=== PATIENT | female | born 1940 | race Caucasian/White ===

== ENCOUNTER 2017-02-23 16:04 | Inpatient (IN) ==
[2017-02-23 17:20] LABS: Basophils # 0.1 K/mcL (0.0-0.2); Basophils % 0.7 %; Eosinophils # 0.7 K/mcL (0.0-0.6); Eosinophils % 6.4 %; Hematocrit 31.9 % (35.3-44.9); Hemoglobin 10.1 g/dL (11.5-15.4); Immature Granulocytes % 0.2 % (0-4); Lymphocytes # 4.5 K/mcL (0.6-4.6); Lymphocytes % 43.8 %; Mean Corpuscular HGB Conc 31.7 g/dL (31.6-35.5); Mean Corpuscular Hemoglobin 28.6 pg (28.0-33.3); Mean Corpuscular Volume 90.4 fL (83.0-100.0); Mean Platelet Volume 12.9 fL (9.4-12.4); Monocytes # 1.2 K/mcL (0.0-1.3); Monocytes % 11.3 %; Neutrophils # 3.9 K/mcL (1.6-8.9); Platelet Count 195 K/mcL (140-400); Red Blood Count 3.53 M/mcL (3.82-4.97); Red Cell Distribution Width 14.6 % (11.5-14.5); Segmented Neutrophils % 37.6 %
[2017-02-23 17:26] LABS: INR 1.1; Prothrombin Time 11.5 Seconds (9.4-12.1)
[2017-02-23 17:28] LABS: Activated Partial Thrombo Time 28.5 Seconds (26.0-36.0)
[2017-02-23 17:31] LABS: Calcium 9.2 mg/dL (8.6-10.8)
[2017-02-23 18:07] LABS: Potassium 4.5 mEq/L (3.5-4.5)
--- NOTE | 2017-02-23 18:08 | Emergency Department Note ---
Disposition Clinical Impression: Rectal bleeding Anemia Qualifiers: Iron deficiency anemia type: chronic blood loss Qualified Code(s): D50.0 - Renal failure Qualifiers: Renal failure chronicity: unspecified chronicity Qualified Code(s): N19 - Unspecified kidney failure Disposition: Admitted As Inpatient Condition: Fair GI Bleed HPI - General Chief complaint: ED GI Bleed Stated complaint: Rectal bleeding Time Seen by Provider: 02/23/17 16:37 Source: patient, family Mode of arrival: private vehicle Limitations: no limitations Nursing Notes Reviewed: Yes Vital Signs Reviewed: Yes - History of Present Illness HPI Narrative: 77-year-old female history of coronary artery disease, CABG who presents to the ER due to rectal bleeding. Patient states she has had bright red blood per rectum for the last 2-3 months whenever she has a loose bowel movement. She denies a prior history of GI bleed. She states she did receive a transfusion wants due to post hemorrhage. She states that it does not happen with every bowel movement this whenever it is loose. Denies a history of colonoscopy , hemorrhoids. She is not on any antiplatelet or anticoagulation medications. She states she did see her doctor recently but did not talk about the bleeding but did find out she had renal disease. She reports intermittent chest pain and shortness of breath which is chronic for her. She also states that she feels faint whenever she stands up but that is also chronic. No syncopal episodes. No other complaints. Pt Subjective Complaint: other (Bright red blood per rectum) Onset (ago): week(s) Consistency: intermittent Severity: mild Improves with: nothing Worsens with: nothing Associated symptoms: Reports: weakness. Denies: abdominal pain, nausea, vomiting Treatments Prior to Arrival: none - Related Data Home Medications Medication Instructions Recorded Confirmed Acetaminophen/Diphenhydramine 1 each PO HS PRN 02/23/17 02/23/17 [Acetaminophen Pm Caplet] Atenolol [Tenormin] 25 mg PO DAILY 02/23/17 02/23/17 Dorzolamide/Timolol [Cosopt] 1 drop OP BID 02/23/17 02/23/17 Insulin NPH Hum/Reg Insulin Hm 10 unit SQ HS 02/23/17 02/23/17 [Humulin 70-30 Vial] Insulin NPH Hum/Reg Insulin Hm 12 unit SQ QAM 02/23/17 02/23/17 [Humulin 70-30 Vial] Lisinopril-HCTZ 10-12.5 [Prinzide 1 tab PO DAILY 02/23/17 02/23/17 10-12.5] Pioglitazone HCl [Pioglitazone HCl] 30 mg PO DAILY 02/23/17 02/23/17 Simvastatin [Zocor] 40 mg PO HS 02/23/17 02/23/17 glipiZIDE [Glipizide] 10 mg PO BID 02/23/17 02/23/17 Allergies Allergy/AdvReac Type Severity Reaction Status Date / Time lidocaine Allergy See Verified 02/23/17 16:30 Comments All systems ED: reviewed and negative except as stated. Constitutional: Denies: fever Cardiovascular: Reports: chest pain (intermittent) Respiratory: Reports: dyspnea (intermittent). Denies: cough Gastrointestinal: Reports: hematochezia. Denies: abdominal pain, nausea, vomiting, diarrhea, melena Genitourinary: Denies: hematuria Past Medical History - Past Medical History Attestation: Yes The following information was validated with the patient. Source: patient Medical history: Reports: diabetes Surgical history: Reports: coronary bypass (CABG) - Social History Smoking Status: Never smoker Smokeless Tobacco Status: No Alcohol use: Reports: none Drug use: Reports: none Physical Exam - General Limitations: physical limitation General appearance: alert, in no apparent distress - Head Head exam: atraumatic, normocephalic, normal inspection - Eye Eye exam: Present: normal appearance, EOMI - ENT ENT exam: normal exam - Neck Neck exam: Present: normal inspection, full ROM - Chest Chest inspection: Present: normal inspection, symmetric chest wall rise - Respiratory Respiratory exam: Present: normal lung sounds bilaterally - Cardiovascular Cardiovascular exam: Present: regular rate, normal rhythm, normal heart sounds - Abdominal Exam Abdominal exam: Present: soft, Non-Tender. Absent: tenderness, distention, rigidity - Rectal Exam Rectal exam: Present: normal inspection, normal rectal tone, hemorrhoids - Extremities Exam Extremities exam: Present: normal inspection, full ROM - Expanded Upper Extremity Exam Shoulder exam: Present: normal inspection, full ROM Arm exam: Present: normal inspection, full ROM Elbow exam: Present: normal inspection, full ROM Forearm/Wrist exam: Present: normal inspection, full ROM Hand exam: Present: normal inspection, full ROM Vascular exam: Normal: radial pulse - Expanded Lower Extremity Exam Hip/Pelvis exam: Present: normal inspection, full ROM Upper leg exam: Present: normal inspection, full ROM Knee exam: Present: normal inspection, full ROM Lower leg exam: Present: normal inspection, full ROM Ankle exam: Present: normal inspection, full ROM Foot/toe exam: Present: normal inspection, full ROM Neurovascular/Tendon exam: Absent: motor deficit, sensory deficit - Neurological Exam Neurological exam: Present: alert, other (Nonfocal neurologic exam. GCS 15.) - Psychiatric Psychiatric exam: Present: normal affect, normal mood - Skin Skin exam: Present: warm, dry, intact, normal color Course Course Narrative: Patient seen and examined. Vital signs reviewed. Rectal exam performed showing some hemorrhoids. We will send this for guaiac evaluation as well as obtain labs including CBC, coags, type and screen. We will give the patient IV fluids and reassess. - Reevaluation(s) Reevaluation #1: Discussed results of imaging with the patient. She is unsure what her renal function was prior. She is agreeable with staying in the hospital. Vital Signs Temperature 97.8 F 02/23/17 16:23 Pulse Rate 59 02/23/17 16:23 Respiratory Rate 18 02/23/17 16:23 Blood Pressure 125/72 02/23/17 16:23 O2 Sat by Pulse Oximetry 99 02/23/17 16:23 Temperature 98 F 02/24/17 07:00 Pulse Rate 66 02/24/17 07:00 Respiratory Rate 18 02/24/17 07:00 Blood Pressure 124/58 02/24/17 07:00 O2 Sat by Pulse Oximetry 98 02/24/17 07:00 Oxygen Delivery Oxygen Delivery Room Air GI Bleed - [facility] Narrative Medical decision making narrative: 77-year-old female presents to the ER due to bright red blood per rectum. Has been going on for 2-3 months with loose stools. Denies a prior history of endoscopy. She reports intermittent chest pain and shortness of breath which is chronic for her. No history of GI bleed. She is not on any antiplatelet or anticoagulation medications. Stool occult negative here. Her hemoglobin is around 10. She does have an elevated creatinine of 3.57. She is unsure what her prior renal function was noted in the system was roughly 1. Her potassium is normal without EKG changes. We will admit her for acute kidney injury as well as anemia. - Lab Data Lab results reviewed: Yes I reviewed the patient's lab results. Result diagrams: 02/24/17 06:09 02/24/17 06:09 Lab Results 02/23/17 02/23/17 02/23/17 Range/Units 17:11 17:11 17:11 WBC 10.3 (4.3-11.1) K/mcL RBC 3.53 L (3.82-4.97) M/mcL Hgb 10.1 L (11.5-15.4) g/dL Hct 31.9 L (35.3-44.9) % MCV 90.4 (83.0-100.0) fL MCH 28.6 (28.0-33.3) pg MCHC 31.7 (31.6-35.5) g/dL RDW 14.6 H (11.5-14.5) % Plt Count 195 (140-400) K/mcL MPV 12.9 H (9.4-12.4) fL Immature Gran % 0.2 (0-4) % Seg Neutrophils % 37.6 % Lymphocytes % 43.8 % Monocytes % 11.3 % Eosinophils % 6.4 % Basophils % 0.7 % Neutrophils # 3.9 (1.6-8.9) K/mcL Lymphocytes # 4.5 (0.6-4.6) K/mcL Monocytes # 1.2 (0.0-1.3) K/mcL Eosinophils # 0.7 H (0.0-0.6) K/mcL Basophils # 0.1 (0.0-0.2) K/mcL PT 11.5 (9.4-12.1) Seconds INR 1.1 APTT 28.5 (26.0-36.0) Seconds Sodium 138 (136-145) mEq/L Potassium 4.5 (3.5-4.5) mEq/L Chloride 113 H (98-109) mEq/L Carbon Dioxide 17 L (19-29) mEq/L BUN 84 H (7-20) mg/dL Creatinine 3.57 H (0.57-1.11) mg/dL Est GFR ( Amer) 15 L (> 60) Est GFR (Non-Af Amer) 12 L (> 60) BUN/Creatinine Ratio 24 (6-26) Glucose 270 H (70-99) mg/dL Calculated Osmolality 321 H (280-300) Calcium 9.2 (8.6-10.8) mg/dL Magnesium (1.6-2.6) mg/dL Total Bilirubin (0.2-1.2) mg/dL AST (5-34) Units/L ALT (0-55) Units/L Alkaline Phosphatase (38-126) Units/L Troponin I (0-0.03) ng/mL Serum Total Protein (6.0-8.3) g/dL Albumin (3.5-5.0) g/dL Globulin (2.4-3.5) g/dL Albumin/Globulin Ratio (1.1-2.2) Stool Occult Blood (Negative) Blood Type Antibody Screen Crossmatch 02/23/17 02/23/17 02/23/17 Range/Units 17:11 17:11 17:44 WBC (4.3-11.1) K/mcL RBC (3.82-4.97) M/mcL Hgb (11.5-15.4) g/dL Hct (35.3-44.9) % MCV (83.0-100.0) fL MCH (28.0-33.3) pg MCHC (31.6-35.5) g/dL RDW (11.5-14.5) % Plt Count (140-400) K/mcL MPV (9.4-12.4) fL Immature Gran % (0-4) % Seg Neutrophils % % Lymphocytes % % Monocytes % % Eosinophils % % Basophils % % Neutrophils # (1.6-8.9) K/mcL Lymphocytes # (0.6-4.6) K/mcL Monocytes # (0.0-1.3) K/mcL Eosinophils # (0.0-0.6) K/mcL Basophils # (0.0-0.2) K/mcL PT (9.4-12.1) Seconds INR APTT (26.0-36.0) Seconds Sodium (136-145) mEq/L Potassium (3.5-4.5) mEq/L Chloride (98-109) mEq/L Carbon Dioxide (19-29) mEq/L BUN (7-20) mg/dL Creatinine (0.57-1.11) mg/dL Est GFR ( Amer) (> 60) Est GFR (Non-Af Amer) (> 60) BUN/Creatinine Ratio (6-26) Glucose (70-99) mg/dL Calculated Osmolality (280-300) Calcium (8.6-10.8) mg/dL Magnesium (1.6-2.6) mg/dL Total Bilirubin (0.2-1.2) mg/dL AST (5-34) Units/L ALT (0-55) Units/L Alkaline Phosphatase (38-126) Units/L Troponin I 0.02 (0-0.03) ng/mL Serum Total Protein (6.0-8.3) g/dL Albumin (3.5-5.0) g/dL Globulin (2.4-3.5) g/dL Albumin/Globulin Ratio (1.1-2.2) Stool Occult Blood Negative (Negative) Blood Type O POSITIVE Antibody Screen NEGATIVE Crossmatch See Detail 02/24/17 02/24/17 Range/Units 06:09 06:09 WBC 12.4 H (4.3-11.1) K/mcL RBC 3.29 L (3.82-4.97) M/mcL Hgb 9.7 L (11.5-15.4) g/dL Hct 30.1 L (35.3-44.9) % MCV 91.5 (83.0-100.0) fL MCH 29.5 (28.0-33.3) pg MCHC 32.2 (31.6-35.5) g/dL RDW 14.7 H (11.5-14.5) % Plt Count 174 (140-400) K/mcL MPV 12.8 H (9.4-12.4) fL Immature Gran % 0.3 (0-4) % Seg Neutrophils % 51.2 % Lymphocytes % 31.9 % Monocytes % 9.0 % Eosinophils % 7.0 % Basophils % 0.6 % Neutrophils # 6.4 (1.6-8.9) K/mcL Lymphocytes # 4.0 (0.6-4.6) K/mcL Monocytes # 1.1 (0.0-1.3) K/mcL Eosinophils # 0.9 H (0.0-0.6) K/mcL Basophils # 0.1 (0.0-0.2) K/mcL PT (9.4-12.1) Seconds INR APTT (26.0-36.0) Seconds Sodium 143 (136-145) mEq/L Potassium 4.3 (3.5-4.5) mEq/L Chloride 119 H (98-109) mEq/L Carbon Dioxide 17 L (19-29) mEq/L BUN 76 H (7-20) mg/dL Creatinine 3.07 H (0.57-1.11) mg/dL Est GFR ( Amer) 18 L (> 60) Est GFR (Non-Af Amer) 15 L (> 60) BUN/Creatinine Ratio 25 (6-26) Glucose 135 H (70-99) mg/dL Calculated Osmolality 321 H (280-300) Calcium 8.9 (8.6-10.8) mg/dL Magnesium 1.8 (1.6-2.6) mg/dL Total Bilirubin 0.3 (0.2-1.2) mg/dL AST 20 (5-34) Units/L ALT 9 (0-55) Units/L Alkaline Phosphatase 60 (38-126) Units/L Troponin I (0-0.03) ng/mL Serum Total Protein 6.6 (6.0-8.3) g/dL Albumin 2.9 L (3.5-5.0) g/dL Globulin 3.7 H (2.4-3.5) g/dL Albumin/Globulin Ratio 0.8 L (1.1-2.2) Stool Occult Blood (Negative) Blood Type Antibody Screen Crossmatch - EKG Data EKG attestation: Yes I reviewed and interpreted this EKG. EKG results narrative: EKG demonstrates sinus rhythm with left bundle-branch block with a rate of 63 bpm. Left axis deviation. Prolonged PA interval of 280. Prolonged QRS duration of 142. QTC 449. No ST elevations or depressions. No acute ischemic findings. No significant changes from previous EKG dated 02/23/17. S.B.A.R. - S.B.A.R. Situation: Demographics, MOA Background: Presenting Complaint, Relevant PMH, Meds, & Allergies Assessment: Vital Signs, Course and respsone to treatment, Exam Concerns, Patient/Family Expectation, Pertinant Lab Results, Outstanding Labs Recommendation: Barrier(s) to disposition, Recommendation based on pending studies, treatments, or consults Hanny Report Given to: Dr. Prabhjot Gamino Repor Time: 20:04 Attestation Statement - Attestation Attestation: I examined this patient and my medical decision-making was reviewed with the Resident Physician. I agree with the documented findings, disposition and treatment plan as described except to the extent set forth below. Patient is a 77-year-old white female who presents to the emergency department with complaints of bright red blood per rectum for 2-3 months. Patient with no prior history of GI bleeding not on anticoagulants. Patient denies any abdominal pain associated with this bleeding no fevers or chills no other associated symptoms. Does c/o chronic SOB and lightheadeness, which she has experienced for quite some time, not assocd with BRBPR. No prior endoscopy/colonoscopy. I agree with patient's physical exam findings as documented patient's hemodynamically stable on arrival. Patient with hemorrhoids on exam, agree with PE findings as documented. VSS. Pt in NAD. EKG SR with LBBB, no acute changes compared to prior EKG. Stool guaiac neg. Hgb =10, mild anemia. SCr elevated from prior, unclear etiology. Remainder of ED testing wnl. Pt admitted for rectal bleeding, anemia, and acute kidney injury. Remained with stable VS throughout ED course. D/W hospitalist who accepted pt for admission.
[2017-02-23] MEDS ORDERED: 0.9 % Sodium Chloride 1,000 ML IVC ONE (18:12)
[2017-02-24] MEDS ORDERED: Dextrose Gel 15 GM PO PRN ×2 (05:48)
[2017-02-24] MEDS ORDERED: Naloxone 0.4 MG/ML INJ IVP PRN (05:48)
[2017-02-24] MEDS ORDERED: Acetaminophen 325 MG TABLET PO PRN (05:48)
[2017-02-24] MEDS ORDERED: Ondansetron 4 MG/2 ML VIAL IVP PRN (05:48)
[2017-02-24] MEDS ORDERED: *HR* Dextrose 50 % in Water (Syg) 50 ML SYRINGE IVP PRN (05:48)
[2017-02-24] MEDS ORDERED: D5% in Water 1,000 ML IVC PRN (05:48)
--- NOTE | 2017-02-24 06:15 | Internal Med History&Physical ---
Date of Encounter: 02/24/17 Time of Encounter: 05:30 Assessment and Plan (1) LGI bleed Current visit: Yes Status: Acute 1. Will monitor Hgb and consult GI. 2. Patient will need colonoscopy to evaluate. 3. Transfuse PRBC as necessary to maintain hemodynamic stability. (2) CKD (chronic kidney disease) stage 5, GFR less than 15 ml/min Current visit: Yes Status: Chronic 1. Consult nephrology for guidance and proper follow up. 2. She is reluctant to see nephrology for fear of dialysis. (3) Anemia Current visit: Yes Status: Chronic 1. Will monitor hgb and transfuse if necessary. 2. Patient needs colonoscopy, but she is reluctant. 3. Will order iron studies. Qualifiers: Iron deficiency anemia type: chronic blood loss Qualified Code(s): D50.0 - Iron deficiency anemia secondary to blood loss (chronic) (4) Insulin dependent diabetes mellitus Current visit: Yes Status: Acute 1. Stop oral meds as she should not be on them with her degree of CKD. 2. Continue home basal insulin plus SSI. 3. Monitor glucose and adjust SSI as needed. (5) DVT prophylaxis Current visit: Yes Status: Acute 1. EPCD's. Internal Medicine - H&P: HPI Chief complaint: bleeding per rectum Admitted From: Emergency Dept Plans for Post Hospital Care: Home History of present illness: Ms. Kaplan is a 77 year old female who presents the ER tonight with a several month history of bright red blood per rectum. She denies any unintentional weight loss, fevers, chills, melena, or hematemesis. She has been reluctant to come to the hospital for evaluation, but her "made her come to the ER". As such, she was admitted to hospitalist service. Additionally, she was she was found to have evidence of kidney failure -- suspected CKD. Upon my assessment of the patient, she is in no distress. She confirms being told on multiple occasions that she has kidney disease and is on the verge of dialysis. She has been reluctant to see a kidney specialist in the past. She also states she does not really want a colonoscopy but will consider some alternative means of colonic imaging. Colon cancer is extensive in the family history, and her father and 2 uncles from colon cancer. 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 Her PCP has been trying to get her to see a news producer for years, but she has been reluctant to do so. Past Med Surg Social Fam HX - Past Medical History Attestation: Yes The following information was validated with the patient. Source: patient, other (ER notes) Medical history: coronary artery disease, diabetes, hypertension Psychiatric history: no psych history - Past Surgical History Surgical History: appendectomy, coronary bypass (CABG), orthopedic, other, splenectomy - Social History Smoking Status: Never smoker Smokeless Tobacco Status: No Alcohol use: none Drug use: none Current living situation: Home, With Family Activity Level: Independent ambulation Recent Out of Country Travel Within the Last 8 Weeks: No - Family History Mother Living Status: Age at : 68 Cause of : Uterine Cancer Hx Family Cardiac Disorders: No Hx Family Respiratory Disorders: No Hx Family Cancer: Yes (Uterine Cancer) Hx Family GI Disorders: No Hx Family Genitourinary Disorders: No Hx Family Endocrine Disorder: No Hx Family Musculoskeletal Disorders: No Hx Family Neuromuscular Disorders: No Hx Family Neurologic Disorders: No Hx Family HEENT Disorders: No Hx Family Autoimmune Disorders: No Hx Family Reproductive Disorders: No Hx Family Psychosocial Disorders: No Hx Family Medical Disorders: No Father Living Status: Hx Family Cancer: Yes - Additional Family History Additional family history: Extensive FH of colon cancer Internal Medicine - H&P: Meds Acetaminophen/Diphenhydramine [Acetaminophen Pm Caplet] 1 each PO HS PRN [History] Atenolol [Tenormin] 25 mg PO DAILY 02/23/17 [History] Dorzolamide/Timolol [Cosopt] 1 drop OP BID 02/23/17 [History] Insulin NPH Hum/Reg Insulin Hm [Humulin 70-30 Vial] 10 unit SQ HS 02/23/17 [ History] Insulin NPH Hum/Reg Insulin Hm [Humulin 70-30 Vial] 12 unit SQ QAM 02/23/17 [ History] Lisinopril-HCTZ 10-12.5 [Prinzide 10-12.5] 1 tab PO DAILY 02/23/17 [History] Pioglitazone HCl [Pioglitazone HCl] 30 mg PO DAILY 02/23/17 [History] Simvastatin [Zocor] 40 mg PO HS 02/23/17 [History] glipiZIDE [Glipizide] 10 mg PO BID 02/23/17 [History] 3 Allergy/AdvReac Type Severity Reaction Status Date / Time lidocaine Allergy See Verified 02/23/17 16:30 Comments - Constitutional Constitutional: weight loss (intentional), no chills, no fever(s) - EENT Eyes: no blurry vision, no change in vision Ears: no ear pain, no tinnitus Nose, mouth and throat: no nasal congestion, no sinus pain, no sinus pressure - Cardiovascular Cardiovascular ROS IM: no chest pain, no diaphoresis, no dyspnea, no orthopnea - Respiratory Respiratory: no cough, no dyspnea, no hemoptysis - Gastrointestinal Gastrointestinal: constipation, hematochezia, no abdominal pain, no diarrhea, no heartburn, no hematemesis, no melena, no vomiting - Genitourinary Genitourinary: no dysuria, no flank pain, no hematuria - Musculoskeletal Musculoskeletal ROS IM: no arthralgias, no back pain - Integumentary Integumentary IM: no rash, no jaundice - Neurological Neurological ROS: no dizziness, no focal weakness, no frequent falls, no headache(s) - Psychiatric Psychiatric: no anxiety, no depression - Endocrine Endocrine IM: no polydipsia, no polyphagia - Hematologic/Lymphatic Hematologic/Lymphatic: no easy bruising, no lymphadenopathy - Allergic/Immunologic Allergic/Immunologic: no wheezing, no GI upset with certain foods - Constitutional Vitals: Temp Pulse Resp BP Pulse Ox 97.6 F 62 16 114/58 100 02/24/17 04:23 02/24/17 04:23 02/24/17 04:23 02/24/17 04:23 02/24/17 04:23 General appearance: Present: A&O X 3, no acute distress, answers questions appropriately - Head Head exam: Present: atraumatic, normal inspection - Expanded Head Exam Head exam expanded: Absent: abrasion, contusion - Eye Eye exam: Present: normal appearance, PERRL. Absent: scleral icterus Pupils: Present: normal accommodation - ENT ENT exam: Present: mucous membranes moist, normal exam - Neck Neck exam general surgery: Present: full ROM, supple. Absent: tenderness, nuchal rigidity - Respiratory Respiratory exam: Present: CTAB. Absent: chest wall tenderness, rales, rhonchi , wheezes - Cardiovascular Cardiovascular exam: Present: RRR, +S1, +S2, systolic murmur. Absent: rubs - GI/Abdominal GI/Abdominal exam: Present: normal bowel sounds, soft. Absent: hepatomegaly, mass, tenderness - Extremities Exam Extremities exam: Present: full ROM, warm. Absent: calf tenderness, joint swelling, pedal edema, tenderness - Back Exam Back exam: Present: normal inspection. Absent: CVA tenderness (L), CVA tenderness (R) - Neurological Exam Neurological exam: Present: alert, CN II-XII intact, oriented X3, no focal deficits - Psychiatric Psychiatric exam: Present: normal affect, normal mood - Skin Skin exam: Present: dry, warm. Absent: rash Internal Med - H&P Results - Labs CBC & Chem 7: 02/23/17 17:11 02/23/17 17:11
[2017-02-24 06:23] LABS: Basophils # 0.1 K/mcL (0.0-0.2); Basophils % 0.6 %; Eosinophils # 0.9 K/mcL (0.0-0.6); Hematocrit 30.1 % (35.3-44.9); Hemoglobin 9.7 g/dL (11.5-15.4); Immature Granulocytes % 0.3 % (0-4); Lymphocytes % 31.9 %; Mean Corpuscular HGB Conc 32.2 g/dL (31.6-35.5); Mean Corpuscular Hemoglobin 29.5 pg (28.0-33.3); Mean Corpuscular Volume 91.5 fL (83.0-100.0); Mean Platelet Volume 12.8 fL (9.4-12.4); Monocytes # 1.1 K/mcL (0.0-1.3); Neutrophils # 6.4 K/mcL (1.6-8.9); Platelet Count 174 K/mcL (140-400); Red Blood Count 3.29 M/mcL (3.82-4.97); Red Cell Distribution Width 14.7 % (11.5-14.5); Segmented Neutrophils % 51.2 %
[2017-02-24 07:18] LABS: Albumin 2.9 g/dL (3.5-5.0); Albumin/Globulin Ratio 0.8 (1.1-2.2); Bilirubin,Total 0.3 mg/dL (0.2-1.2); Calcium 8.9 mg/dL (8.6-10.8); Globulin 3.7 g/dL (2.4-3.5); Magnesium 1.8 mg/dL (1.6-2.6); Potassium 4.3 mEq/L (3.5-4.5); Total Protein 6.6 g/dL (6.0-8.3)
--- NOTE | 2017-02-24 09:15 | Nephrology Consult Note ---
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 Kaplan is a 77 year old female who who was admitted with a several month history of bright red blood per rectum. She has been reluctant to come to the hospital but when her found out he "made her come to the ER". On admission she was she was found to be in kidney failure. She confirms being told on multiple occasions that she has kidney disease and is on the verge of dialysis. She has been reluctant to see a kidney specialist in the past. She also states she does not really want a colonoscopy but will consider some alternative means of colonic imaging. Colon cancer is extensive in the family history, and her father and 2 uncles from colon cancer. Patient states her mother was on dialysis and it was "the most horrible "; states she would rather than go on dialysis. 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 Her PCP has been trying to get her to see a loan broker for years, but she has been reluctant to do so. After a long discussion patient is willing to have a workup to eval her kidney function. Past Med Surg Social Fam HX - Past Medical History Medical history: coronary artery disease, diabetes, hypertension, renal disease Psychiatric history: no psych history - Past Surgical History Surgical History: appendectomy, coronary bypass (CABG), orthopedic, other, splenectomy - Social History Smoking Status: Never smoker Smokeless Tobacco Status: No Alcohol use: none Drug use: none - Family History Mother Living Status: Age at : 68 Cause of : Uterine Cancer Hx Family Cardiac Disorders: No Hx Family Respiratory Disorders: No Hx Family Cancer: Yes (Uterine Cancer) Hx Family GI Disorders: No Hx Family Genitourinary Disorders: No Hx Family Endocrine Disorder: No Hx Family Musculoskeletal Disorders: No Hx Family Neuromuscular Disorders: No Hx Family Neurologic Disorders: No Hx Family HEENT Disorders: No Hx Family Autoimmune Disorders: No Hx Family Reproductive Disorders: No Hx Family Psychosocial Disorders: No Hx Family Medical Disorders: No Father Living Status: Hx Family Cancer: Yes Medications and Allergies Acetaminophen/Diphenhydramine [Acetaminophen Pm Caplet] 1 each PO HS PRN [History] Atenolol [Tenormin] 25 mg PO DAILY 02/23/17 [History] Dorzolamide/Timolol [Cosopt] 1 drop OP BID 02/23/17 [History] Insulin NPH Hum/Reg Insulin Hm [Humulin 70-30 Vial] 10 unit SQ HS 02/23/17 [ History] Insulin NPH Hum/Reg Insulin Hm [Humulin 70-30 Vial] 12 unit SQ QAM 02/23/17 [ History] Lisinopril-HCTZ 10-12.5 [Prinzide 10-12.5] 1 tab PO DAILY 02/23/17 [History] Pioglitazone HCl [Pioglitazone HCl] 30 mg PO DAILY 02/23/17 [History] Simvastatin [Zocor] 40 mg PO HS 02/23/17 [History] glipiZIDE [Glipizide] 10 mg PO BID 02/23/17 [History] 3 Allergy/AdvReac Type Severity Reaction Status Date / Time lidocaine Allergy See Verified 02/23/17 16:30 Comments Review of Systems All Systems: reviewed and no additional remarkable complaints except as stated Constitutional: no fatigue, no fever(s), no weakness, no weight gain, no weight loss Cardiovascular: no chest pain, no dyspnea Respiratory: no cough, no dyspnea, no hemoptysis Gastrointestinal: change in stool character, hematochezia Neurological: no behavioral changes Exam - Vital Signs Vital signs: Initial Vital Signs Temp Pulse Resp BP Pulse Ox 97.8 F 59 18 125/72 99 02/23/17 16:23 02/23/17 16:23 02/23/17 16:23 02/23/17 16:23 02/23/17 16:23 - General Appearance General appearance: well-developed, well-nourished EENT: ATNC, mucous membranes moist, hearing intact, vision intact Neck: supple Respiratory: clear Cardiology: no edema, normal S1, normal S2 Gastrointestinal: no tenderness, no guarding Integumentary: warm and dry Neurologic: alert and oriented x3 Psychiatric: mood/affect appropriate, cooperative Results - Lab Results 02/24/17 06:09 02/24/17 06:09 Most recent lab results Calcium 8.9 mg/dL (8.6-10.8) 02/24/17 06:09 Magnesium 1.8 mg/dL (1.6-2.6) 02/24/17 06:09 Consult Discharge Plan - Plan Referrals: Martín Odonnell MD [Primary Care Provider] -
[2017-02-24] MEDS: Insulin NPH/REG 70/30 100 UNIT/ML (x5UNIT) SQ SCH ×2 (09:30→21:13)
[2017-02-24] MEDS: Insulin LISPRO 300 UNITS/3 ML VIAL SQ SCH ×3 (09:30→18:27)
[2017-02-24 10:24] LABS: Uric Acid 7.5 mg/dL (2.6-6.0)
[2017-02-24] MEDS: Dorzolamide/Timolol OPTH 10 ML BOTTLE BOTH EYES SCH ×2 (10:57→21:14)
--- NOTE | 2017-02-24 11:34 | Gastroenterology Consult Note ---
<Seth Mao - Last Filed: 02/24/17 18:17> Date of Encounter: 02/24/17 Time of Encounter: 11:27 - Assessment and plan (1) Rectal bleeding Current Visit: Yes Status: Acute Assessment and plan: patient reports bright red blood per rectum that started about 6 months ago and has been intermittently occurring. not on any blood thinners. has family history of colorectal cancer, her father and two uncles of colon cancer. denies ever having colonoscopy done in the past. currently agreeable to colonoscopy. Plan: clear liquid diet now, no red or purple dyes 20mg dulculax now NPO after midnight use Golytyely bowel prep. if patient cannot tolerte golytely bowel prep, use miralax bowel prep if bowel movements not clear by 6am, give two water tap enemas. - Time Spent With Patient Total time spent is greater than 50% in coordination of care (as documented) at patient's floor/unit and/or counseling patient: GI History of Present Illness - Data of Consult Patient: new to practice Requesting Physician: José Maneul Hernandez - Consult Narrative Reason for consult: bleeding per rectum History of present illness: Ms. Kaplan is a 77 year old female with pMHx of CAD, DM, HTN, CKD. She was admitted yesterday from ER with approximately month history of bright red blood per rectum. She was reluctant to come to hospital for evaluation, but came after being urged to do so by her . patient does report history of colon cancer in her family (father and two uncles of colon cancer) and was initially reluctant to get colonoscopy done but is now agreeable to doing so. patient denies being on blood t hinners in the past and she denies dark/tarry stools. she also reports diarrhea that started about 1 choctaw ago and she has been having 4-5 episodes of loose stools per day. she denies any sick contacts and denies any travel and denies any recent use of antibiotics. she denies ever having a colonoscopy in the past. she admits to nauesa without vomiting, admits to occasional shortness of breath, denies fevers/chills. Past Med Surg Social Fam HX - Past Medical History Medical history: coronary artery disease, diabetes, hypertension, renal disease Psychiatric history: no psych history - Past Surgical History Surgical History: appendectomy, coronary bypass (CABG), orthopedic, other, splenectomy - Social History Smoking Status: Never smoker Smokeless Tobacco Status: No Alcohol use: none Drug use: none - Family History Mother Living Status: Age at : 68 Cause of : Uterine Cancer Hx Family Cardiac Disorders: No Hx Family Respiratory Disorders: No Hx Family Cancer: Yes (Uterine Cancer) Hx Family GI Disorders: No Hx Family Genitourinary Disorders: No Hx Family Endocrine Disorder: No Hx Family Musculoskeletal Disorders: No Hx Family Neuromuscular Disorders: No Hx Family Neurologic Disorders: No Hx Family HEENT Disorders: No Hx Family Autoimmune Disorders: No Hx Family Reproductive Disorders: No Hx Family Psychosocial Disorders: No Hx Family Medical Disorders: No Father Living Status: Hx Family Cancer: Yes All systems PM: reviewed and no additional remarkable complaints except as stated - Constitutional Vitals: Temp Pulse Resp BP Pulse Ox 98 F 66 18 124/58 98 02/24/17 07:00 02/24/17 07:00 02/24/17 07:00 02/24/17 07:00 02/24/17 07:00 General appearance: Present: A&O X 3, pleasant, no acute distress, answers questions appropriately Exam: pale - Head Head exam: Present: atraumatic, normocephalic - Neck Neck exam general surgery: Present: supple, trachea midline - Respiratory Respiratory exam: Present: CTAB - GI/Abdominal Additional comments: obese, non distended, nontender, positive bowel sounds. - Extremities Exam Extremities exam: Absent: cyanotic Additional comments: right lower extremity non pitting edema. - Psychiatric Psychiatric exam: Present: normal affect, normal mood Results - Labs CBC & Chem 7: 02/24/17 18:04 02/24/17 06:09 Labs: Last Result Calcium 8.9 mg/dL (8.6-10.8) 02/24/17 06:09 Iron 63 mcg/dL (50-170) 02/24/17 06:09 % Saturation 24 % (15-50) 02/24/17 06:09 Transferrin 189 mg/dL (180-382) 02/24/17 06:09 Troponin I 0.02 ng/mL (0-0.03) 02/23/17 17:11 Stool Occult Blood Negative (Negative) 02/23/17 17:44 Entire Visit Hgb 9.7 g/dL (11.5-15.4) L 02/24/17 06:09 Hct 30.1 % (35.3-44.9) L 02/24/17 06:09 PT 11.5 Seconds (9.4-12.1) 02/23/17 17:11 Total Bilirubin 0.3 mg/dL (0.2-1.2) 02/24/17 06:09 AST 20 Units/L (5-34) 02/24/17 06:09 ALT 9 Units/L (0-55) 02/24/17 06:09 - ABG ABG results: PT/INR, D-dimer PT 11.5 Seconds (9.4-12.1) 02/23/17 17:11 Consult Discharge Plan - Plan Referrals: Martín Odonnell MD [Primary Care Provider] - <[email or web address] - Last Filed: 02/24/17 18:20> Date of Encounter: 02/24/17 Time of Encounter: 18:00 - Time Spent With Patient Total time spent is greater than 50% in coordination of care (as documented) at patient's floor/unit and/or counseling patient: GI History of Present Illness - Data of Consult Requesting Physician: José Manuel Hernandez - Consult Narrative History of present illness: Ms. Kaplan is a 77 year old female - Constitutional Vitals: Temp Pulse Resp BP Pulse Ox 97.8 F 66 17 150/78 95 02/24/17 15:00 02/24/17 15:00 02/24/17 15:00 02/24/17 15:00 02/24/17 15:00 Results - Labs CBC & Chem 7: 02/24/17 18:04 02/24/17 06:09 Labs: Last Result Calcium 8.9 mg/dL (8.6-10.8) 02/24/17 06:09 Iron 63 mcg/dL (50-170) 02/24/17 06:09 % Saturation 24 % (15-50) 02/24/17 06:09 Transferrin 189 mg/dL (180-382) 02/24/17 06:09 Troponin I 0.02 ng/mL (0-0.03) 02/23/17 17:11 Stool Occult Blood Negative (Negative) 02/23/17 17:44 Entire Visit Hgb 10.1 g/dL (11.5-15.4) L 02/24/17 18:04 Hct 32.4 % (35.3-44.9) L 02/24/17 18:04 PT 11.5 Seconds (9.4-12.1) 02/23/17 17:11 Total Bilirubin 0.3 mg/dL (0.2-1.2) 02/24/17 06:09 AST 20 Units/L (5-34) 02/24/17 06:09 ALT 9 Units/L (0-55) 02/24/17 06:09 - ABG ABG results: PT/INR, D-dimer PT 11.5 Seconds (9.4-12.1) 02/23/17 17:11 - Impressions Impressions Retroperitoneum Ultrasound 02/24/17 15:00 IMPRESSION: 1. No hydronephrosis. 2. Left nephrolithiasis. D/ / 02/24/2017 16:27:42 Cassie Boateng MD / [facility] Interpreting Provider: Cassie Boateng MD - Attending Attestation I examined this patient and my medical decision-making was reviewed with the Resident Physician. I agree with the documented findings, disposition and treatment plan as described except to the extent set forth below.
--- NOTE | 2017-02-24 13:28 | Internal Med Progress Note ---
<Estevan Hu - Last Filed: 02/24/17 15:59> Date of Encounter: 02/24/17 Time of Encounter: 09:30 - Assessment and plan (1) Rectal bleeding Current Visit: Yes Status: Acute Assessment and plan: Patient presented with complaint of blood per rectum, stool occult negative hemoglobin decreased nonsignificantly likely secondary to dilutional effect. Patient complained of blood in her stool described as bright red blood over several months. Patient has normocytic anemia which does not correlate with a chronic GI bleed. - Patient denies history of colonoscopy with does have very significant family history for colon cancer in her brother and father - Given the patient's presenting concern and laboratory findings this may be hemorrhoids but cannot rule out diverticular bleed or colon cancer but suspect lower GI in nature. Plan: - Gastroenterology consults for possible colonoscopy and evaluation - Hemoglobin every 8 hours - Monitor volume status including blood pressure and urinary output - PPI coverage (2) Acute kidney injury superimposed on CKD Current Visit: Yes Status: Acute Assessment and plan: 77-year-old female presents with a creatinine of 3.57 and GFR 14 with complaint of rectal bleeding. Her previous creatinine was 1.08 and 2014 and 1.19 in 2015. - She has significant medical history of insulin-dependent diabetes, chronic kidney disease stage III and frequent NSAID use. - Her current creatinine is 3.07 which is reduced at 3.57 and this may be acute on chronic kidney disease. Nephrology is involved in the patient's care and are providing rehydration and monitoring renal function. Plan: - Continue dextrose IV fluid - Continue to monitor renal function with a.m. labs - Avoid nephrotoxic medications and renally dose antibiotics - Monitor volume status daily Appreciate nephrology's recommendations (3) Anemia Current Visit: Yes Status: Acute Assessment and plan: Patient presents with normocytic anemia with a hemoglobin of 10.1 and 9.7 today after fluid rehydration. The drop may be secondary to dilutional effect. - Patient presented with blood per rectum Qualifiers: Anemia type: unspecified type Qualified Code(s): D64.9 - Anemia, unspecified (4) Diabetes Current Visit: Yes Status: Acute Assessment and plan: Patient has known history of type 2 diabetes for which he takes glipizide and subcutaneous insulin at home. Oral anti-hyperglycemics were held at the time of admission with the setting of GI bleed and acute kidney injury. Plan: - Chek glucoses 4 times a day - Humulin 70/30: 10 units subcutaneous at bedtime, 12 units subcutaneous every morning - Low-dose sliding scale Qualifiers: Qualified Code(s): E11.9 - Type 2 diabetes mellitus without complications (5) DVT prophylaxis Current Visit: Yes Status: Acute Assessment and plan: Hold antiplatelet or blood thinners in the setting of GI bleed. - Subjective Interval history: Mrs. Kaplan is seen about a patient bedside. She is alert awake oriented interactive in no acute distress. She denies any current pain and has not had any rectal bleeding since admission. She does have a history of "pain in her left lower extremity after having screws placed in her ankle for which she says she has no allergy to and occasionally has to take NSAIDs and Tylenol for her pain. She denies any changes in urination and knowing of any further change in her renal function. She has otherwise been feeling well and denies any nausea vomiting diarrhea constipation, fevers chills or sweating. - Constitutional Vitals: Temp Pulse Resp BP Pulse Ox 98 F 66 18 124/58 98 02/24/17 07:00 02/24/17 07:00 02/24/17 07:00 02/24/17 07:00 02/24/17 07:00 General appearance: Present: A&O X 3, no acute distress, answers questions appropriately Exam: General: Patient alert, awake, oriented 3, interactive, in no acute distress HEENT: Normocephalic, atraumatic, pupils equal reactive to light, nasal cavity patent and open septum median position, oral mucosa moist, uvula midline, neck supple trachea midline no palpable lymphadenopathy, no thyromegaly. Chest: Symmetric bilateral correlating with respiratory effort, effort nonlabored. Cardiac: Regular rate and rhythm, systolic murmur appreciated at 2 out of 6 , Radial pulses 2+ bilateral, posterior tibial and dorsal pedal pulses 2+ bilateral. Respiratory: Clear to auscultation all lung paige Abdomen: Soft, nontender, positive bowel sounds, no palpable masses appreciated on examination Extremities: Symmetric bilateral, bilateral lower extremities symmetric trace edema patient moving all 4 extremities spontaneously. Neurologic: No focal deficits appreciated on examination. Face symmetric, muscle strength symmetric bilateral upper and lower extremities. Internal Medicine: Result - Labs CBC & Chem 7: 02/24/17 06:09 02/24/17 06:09 - ABG Interpretation ABG results: PT/INR, D-dimer PT 11.5 Seconds (9.4-12.1) 02/23/17 17:11 Consult Discharge Plan - Plan Referrals: Martín Odonnell MD [Primary Care Provider] - <José Manuel Hernandez - Last Filed: 02/25/17 10:28> Date of Encounter: 02/25/17 - Constitutional Vitals: Temp Pulse Resp BP Pulse Ox 98.6 F 65 18 144/67 99 02/25/17 00:47 02/25/17 07:59 02/25/17 07:59 02/25/17 07:59 02/25/17 07:59 Internal Medicine: Result - Labs CBC & Chem 7: 02/25/17 05:58 02/25/17 05:58 Labs: Short CBC 02/24/17 02/25/17 Range/Units 18:04 05:58 WBC 9.3 (4.3-11.1) K/mcL Hgb 10.1 L 9.8 L (11.5-15.4) g/dL Hct 32.4 L 30.6 L (35.3-44.9) % Plt Count 183 (140-400) K/mcL Neutrophils # 4.5 (1.6-8.9) K/mcL BMP 02/25/17 05:58 Sodium 137 Potassium 4.1 Chloride 113 H Carbon Dioxide 16 L BUN 61 H Creatinine 2.51 H Glucose 101 H Calcium 8.8 Liver Function 02/25/17 Range/Units 05:58 Total Bilirubin 0.6 (0.2-1.2) mg/dL AST 27 (5-34) Units/L ALT 9 (0-55) Units/L Alkaline Phosphatase 59 (38-126) Units/L Albumin 3.0 L (3.5-5.0) g/dL - ABG Interpretation ABG results: PT/INR, D-dimer PT 11.5 Seconds (9.4-12.1) 02/23/17 17:11 - Impressions Impressions Retroperitoneum Ultrasound 02/24/17 15:00 IMPRESSION: 1. No hydronephrosis. 2. Left nephrolithiasis. D/ / 02/24/2017 16:27:42 Cassie Boateng MD / [facility] Interpreting Provider: Cassie Boateng MD - Attending Attestation colonoscopy in am
[2017-02-24 18:11] LABS: Hematocrit 32.4 % (35.3-44.9); Hemoglobin 10.1 g/dL (11.5-15.4)
[2017-02-24] MEDS ORDERED: SODIUM CHLORIDE/NAHCO3/KCL/PEG 4,000 ML SOLN.RECON PO ONE (18:16)
[2017-02-25 06:08] LABS: Basophils # 0.1 K/mcL (0.0-0.2); Basophils % 0.5 %; Eosinophils # 0.6 K/mcL (0.0-0.6); Eosinophils % 6.3 %; Hematocrit 30.6 % (35.3-44.9); Hemoglobin 9.8 g/dL (11.5-15.4); Immature Granulocytes % 0.3 % (0-4); Lymphocytes # 3.3 K/mcL (0.6-4.6); Lymphocytes % 35.1 %; Mean Corpuscular Hemoglobin 29.3 pg (28.0-33.3); Mean Corpuscular Volume 91.3 fL (83.0-100.0); Mean Platelet Volume 12.4 fL (9.4-12.4); Monocytes # 0.9 K/mcL (0.0-1.3); Monocytes % 9.8 %; Neutrophils # 4.5 K/mcL (1.6-8.9); Platelet Count 183 K/mcL (140-400); Red Blood Count 3.35 M/mcL (3.82-4.97); Red Cell Distribution Width 14.5 % (11.5-14.5)
[2017-02-25 06:27] LABS: Albumin/Globulin Ratio 0.8 (1.1-2.2); Bilirubin,Total 0.6 mg/dL (0.2-1.2); Calcium 8.8 mg/dL (8.6-10.8); Globulin 3.6 g/dL (2.4-3.5); Potassium 4.1 mEq/L (3.5-4.5); Total Protein 6.6 g/dL (6.0-8.3)
--- NOTE | 2017-02-25 07:38 | Anesthesia Evaluation PreOp ---
Date of Encounter: 02/25/17 Time of Encounter: 07:36 - Past History Planned Operation: Colonoscopy Cardiac History: [place] x 3), HTN, Hyperlipidemia, Cardiac Surgery (CABG x 4 in 2000) Pulmonary History: Denies Any Significant HX ECONOMICS INSTRUCTOR History: Denies Any Significant HX Other Medical History: Renal (CKD stage 5), Bleeding (GI bleed), Diabetes Type I Anesthesia History: No Prior Anesthetic Complications, Past Anesthesia Alcohol Use: none Drug use: none Medications and Allergies Acetaminophen/Diphenhydramine [Acetaminophen Pm Caplet] 1 each PO HS PRN [History] Atenolol [Tenormin] 25 mg PO DAILY 02/23/17 [History] Dorzolamide/Timolol [Cosopt] 1 drop OP BID 02/23/17 [History] Insulin NPH Hum/Reg Insulin Hm [Humulin 70-30 Vial] 10 unit SQ HS 02/23/17 [ History] Insulin NPH Hum/Reg Insulin Hm [Humulin 70-30 Vial] 12 unit SQ QAM 02/23/17 [ History] Lisinopril-HCTZ 10-12.5 [Prinzide 10-12.5] 1 tab PO DAILY 02/23/17 [History] Pioglitazone HCl [Pioglitazone HCl] 30 mg PO DAILY 02/23/17 [History] Simvastatin [Zocor] 40 mg PO HS 02/23/17 [History] glipiZIDE [Glipizide] 10 mg PO BID 02/23/17 [History] 3 Allergy/AdvReac Type Severity Reaction Status Date / Time lidocaine Allergy See Verified 02/23/17 16:30 Comments - Meds/Allergy Pre-op Review Medications Reviewed: Yes Allergies Reviewed: Yes Beta Blockers on Current Med List: Yes If Beta Blockers taken, Date/Time (Last Dose taken): 02/24/2017 at 1057 Anesthesia Results - Labs 02/25/17 05:58 02/25/17 05:58 Anesthesia Exam Vital Signs/O2 Sat/Glucose, Most Recent Temp Pulse Resp BP Pulse Ox 98.6 F 62 18 129/80 96 02/25/17 00:47 02/25/17 00:47 02/25/17 00:47 02/25/17 00:47 02/25/17 00:47 Blood Glucose* 101 Height: 5'3''/1.6 m Weight: 201 lbs/91.4 kg NPO (# of Hours): 8 Pain Scale: 0 Pain Scale Used: Numeric (1 - 10) - HEENT Pupil (Motor): EOMI Mallampati: II Teeth: Poor dentition Denture Type: Upper: Complete Oral Opening: Greater than 3 - ECONOMICS INSTRUCTOR LOC: Oriented ECONOMICS INSTRUCTOR Motor: Normal RUE, Normal LUE, Normal RLE, Normal Face, Deficit LLE ECONOMICS INSTRUCTOR Sensory: Normal: RUE, LUE, Face, Deficit: RLE, LLE - Cardiac Rhythm: Regular Murmur: None - Pulmonary Breath Sounds: bilateral Clear Respiratory Effort: Symmetrical Anesthesia Assess/Plan ASA Score: 3 Modified Rebeca Scale for Level of Consciousness: Cooperative, oriented, and tranquil Anesthetic Plan: MAC Monitoring Plan: Standard Monitors
[2017-02-25] MEDS ORDERED: Tetracaine/Benzocaine/Butamben 200MG/SPRAY (100SPY/BOT) MM ONE (08:07)
--- NOTE | 2017-02-25 09:02 | Internal Med Progress Note ---
<Estevan Hu - Last Filed: 02/25/17 10:49> Date of Encounter: 02/25/17 Time of Encounter: 09:02 - Assessment and plan (1) Rectal bleeding Current Visit: Yes Status: Acute Assessment and plan: Patient presented with complaint of blood per rectum, stool occult negative hemoglobin decreased nonsignificantly likely secondary to dilutional effect. Patient complained of blood in her stool described as bright red blood over several months. Patient has normocytic anemia which does not correlate with a chronic GI bleed. - Patient denies history of colonoscopy with does have very significant family history for colon cancer in her brother and father - Given the patient's presenting concern and laboratory findings this may be hemorrhoids but cannot rule out diverticular bleed or colon cancer but suspect lower GI in nature. 02/25: Patient underwent colonoscopy with findings of grade 2 hemorrhoids internally, diverticuli and no other significant findings. Patient's hemoglobin remained stable overnight and no findings of blood per rectum. Plan: - Started senna and when necessary MiraLAX - Follow up outpatient with primary care provider. (2) Acute kidney injury superimposed on CKD Current Visit: Yes Status: Acute Assessment and plan: 77-year-old female presents with a creatinine of 3.57 and GFR 14 with complaint of rectal bleeding. Her previous creatinine was 1.08 and 2013 and 1.19 in 2014. - She has significant medical history of insulin-dependent diabetes, chronic kidney disease stage III and frequent NSAID use. - Her current creatinine is 3.07 which is reduced at 3.57 and this may be acute on chronic kidney disease. Nephrology is involved in the patient's care and are providing rehydration and monitoring renal function. 02/25: Creatinine improved to 2.51 with a GFR of 18 there was not much improvement in the patient's renal function at this time. Will defer further recommendations and follow-up to nephrology. Plan: - Continue dextrose IV fluid - Continue to monitor renal function with a.m. labs - Avoid nephrotoxic medications and renally dose antibiotics - Monitor volume status daily Appreciate nephrology's recommendations (3) Anemia Current Visit: Yes Status: Acute Assessment and plan: Patient presents with normocytic anemia with a hemoglobin of 10.1 and 9.7 after fluid rehydration. The drop may be secondary to dilutional effect. - Patient presented with blood per rectum Qualifiers: Anemia type: unspecified type Qualified Code(s): D64.9 - Anemia, unspecified (4) Diabetes Current Visit: Yes Status: Acute Assessment and plan: Patient has known history of type 2 diabetes for which he takes glipizide and subcutaneous insulin at home. Oral anti-hyperglycemics were held at the time of admission with the setting of GI bleed and acute kidney injury. Plan: - Check glucoses 4 times a day - Humulin 70/30: 10 units subcutaneous at bedtime, 12 units subcutaneous every morning - Low-dose sliding scale Qualifiers: Qualified Code(s): E11.9 - Type 2 diabetes mellitus without complications (5) DVT prophylaxis Current Visit: Yes Status: Acute Assessment and plan: Subcutaneous heparin every 8 hours - Subjective Interval history: Mrs. Kaplan is seen about a patient bedside. She is alert awake oriented interactive in no acute distress. She states that she tolerated the bowel prep and her colonoscopy without any difficulties. She is feeling well today and denies any pain or discomforts. She understood that there were findings of hemorrhoids and diverticulosis. We discussed bowel regimen and dietary habits. She is concerned about her renal function and looks forward to talking with the map mounter today. - Constitutional Vitals: Temp Pulse Resp BP Pulse Ox 98.6 F 65 18 144/67 99 02/25/17 00:47 02/25/17 07:59 02/25/17 07:59 02/25/17 07:59 02/25/17 07:59 General appearance: Present: A&O X 3, no acute distress, answers questions appropriately Exam: General: Patient alert, awake, oriented 3, interactive, in no acute distress HEENT: Normocephalic, atraumatic, pupils equal reactive to light, nasal cavity patent and open septum median position, oral mucosa moist, uvula midline, neck supple trachea midline no palpable lymphadenopathy, no thyromegaly. Chest: Symmetric bilateral correlating with respiratory effort, effort nonlabored. Cardiac: Regular rate and rhythm, grade 2/6 systolic ejection murmur appreciated on auscultation, Radial pulses 2+ bilateral, posterior tibial and dorsal pedal pulses 2+ bilateral. Respiratory: Clear to auscultation all lung paige Abdomen: Soft, nontender, positive bowel sounds, no palpable masses appreciated on examination Extremities: Symmetric bilateral, bilateral lower extremities symmetric trace edema patient moving all 4 extremities spontaneously. Neurologic: No focal deficits appreciated on examination. Face symmetric, muscle strength symmetric bilateral upper and lower extremities. Internal Medicine: Result - Labs CBC & Chem 7: 02/25/17 05:58 02/25/17 05:58 Labs: Short CBC 02/24/17 02/25/17 Range/Units 18:04 05:58 WBC 9.3 (4.3-11.1) K/mcL Hgb 10.1 L 9.8 L (11.5-15.4) g/dL Hct 32.4 L 30.6 L (35.3-44.9) % Plt Count 183 (140-400) K/mcL Neutrophils # 4.5 (1.6-8.9) K/mcL BMP 02/25/17 05:58 Sodium 137 Potassium 4.1 Chloride 113 H Carbon Dioxide 16 L BUN 61 H Creatinine 2.51 H Glucose 101 H Calcium 8.8 Liver Function 02/25/17 Range/Units 05:58 Total Bilirubin 0.6 (0.2-1.2) mg/dL AST 27 (5-34) Units/L ALT 9 (0-55) Units/L Alkaline Phosphatase 59 (38-126) Units/L Albumin 3.0 L (3.5-5.0) g/dL - ABG Interpretation ABG results: PT/INR, D-dimer PT 11.5 Seconds (9.4-12.1) 02/23/17 17:11 - Impressions Impressions Retroperitoneum Ultrasound 02/24/17 15:00 IMPRESSION: 1. No hydronephrosis. 2. Left nephrolithiasis. D/ / 02/24/2017 16:27:42 Cassie Boateng MD / [facility] Interpreting Provider: Cassie Boateng MD Consult Discharge Plan - Plan Referrals: Martín Odonnell MD [Primary Care Provider] - (office was closed today when i tried to call and they do not take messages please call and make a 7-10 day follow up ) <José Manuel Hernandez H - Last Filed: 02/25/17 15:56> Date of Encounter: 02/25/17 - Constitutional Vitals: Temp Pulse Resp BP Pulse Ox 98.6 F 65 18 128/49 99 02/25/17 00:47 02/25/17 07:59 02/25/17 07:59 02/25/17 11:58 02/25/17 07:59 Internal Medicine: Result - Labs CBC & Chem 7: 02/25/17 05:58 02/25/17 05:58 Labs: Short CBC 02/24/17 02/25/17 Range/Units 18:04 05:58 WBC 9.3 (4.3-11.1) K/mcL Hgb 10.1 L 9.8 L (11.5-15.4) g/dL Hct 32.4 L 30.6 L (35.3-44.9) % Plt Count 183 (140-400) K/mcL Neutrophils # 4.5 (1.6-8.9) K/mcL BMP 02/25/17 05:58 Sodium 137 Potassium 4.1 Chloride 113 H Carbon Dioxide 16 L BUN 61 H Creatinine 2.51 H Glucose 101 H Calcium 8.8 Liver Function 02/25/17 Range/Units 05:58 Total Bilirubin 0.6 (0.2-1.2) mg/dL AST 27 (5-34) Units/L ALT 9 (0-55) Units/L Alkaline Phosphatase 59 (38-126) Units/L Albumin 3.0 L (3.5-5.0) g/dL - ABG Interpretation ABG results: PT/INR, D-dimer PT 11.5 Seconds (9.4-12.1) 02/23/17 17:11 - Impressions Impressions Retroperitoneum Ultrasound 02/24/17 15:00 IMPRESSION: 1. No hydronephrosis. 2. Left nephrolithiasis. 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 I agree with the documented findings, disposition and treatment plan as described except to the extent set forth below.
[2017-02-25] MEDS: Insulin NPH/REG 70/30 100 UNIT/ML (x5UNIT) SQ SCH ×2 (09:27→23:06)
[2017-02-25] MEDS: Insulin LISPRO 300 UNITS/3 ML VIAL SQ SCH ×3 (09:27→17:33)
[2017-02-25] MEDS: Dorzolamide/Timolol OPTH 10 ML BOTTLE BOTH EYES SCH ×2 (09:28→23:15)
[2017-02-25] MEDS ORDERED: *HR* Propofol 500 MG/50 ML BOTTLE IVC ONE (15:14)
[2017-02-25] MEDS: *HR* Heparin 5,000 UNIT/ML VIAL SQ SCH ×2 (17:29→23:03)
[2017-02-25 18:04] LABS: Hematocrit 31.9 % (35.3-44.9); Hemoglobin 10.2 g/dL (11.5-15.4)
--- NOTE | 2017-02-25 23:01 | Nephrology Progress Note ---
Date of Encounter: 02/25/17 Time of Encounter: 22:59 - Assessment and Plan (1) Acute kidney injury superimposed on CKD Current Visit: Yes Status: Acute Renal function appears to be improving. Continue with current plan. Avoid nephrotoxins. Adjust medications for renal function. (2) Anemia Current Visit: Yes Status: Acute Monitor hemoglobin. Transfuse as needed. She denies any further GI bleeding. Qualifiers: Anemia type: unspecified type Qualified Code(s): D64.9 - Anemia, unspecified (3) Diabetes Current Visit: Yes Status: Acute Per the primary team. Qualifiers: Qualified Code(s): E11.9 - Type 2 diabetes mellitus without complications (4) LGI bleed Current Visit: Yes Status: Acute Per GI. Patient denies further bleeding. Subjective Principal diagnosis: VALERIY Interval history: The patient was seen and evaluated. She had no new complaint. She reports that her rectal bleeding seems to have stopped. Review of systems is stable. Objective - Vital Signs Vital signs: Vital Signs Temp Pulse Resp BP Pulse Ox 02/25/17 20:00 98 F 68 20 127/54 98 02/25/17 11:58 128/49 02/25/17 07:59 65 18 144/67 99 02/25/17 00:47 98.6 F 62 18 129/80 96 Intake and Output 02/25/17 02/25/17 02/25/17 07:59 15:59 23:59 Intake Total 1000 / 1000 480 / 480 0 / 0 Output Total 0 / 0 Balance 1000 / 1000 480 / 480 0 / 0 Intake: IV Fluids 1000 / 1000 0.45% Sodium Chloride 1000 / 1000 1000 Ml 1000 Ml 1,000 ML @ 75 mls/hr IVC .[id number] [facility] Rx#:[id number] Oral 480 / 480 0 / 0 Output: Urine 0 / 0 Other: Meal Breakfast Percent of Meal Consumed 100% Stool Size Copious Stool Consistency liquid Stool Color Brown # Voids 1 Weight 91.4 kg Blood Glucose* 101 134 183 Patient Weight 02/25/17 23:59 Weight 91.4 kg - General Appearance General appearance: Present: well-developed, well-nourished EENT: Present: ATNC Neck: Present: supple Respiratory: Present: course breath sounds Cardiology: Present: no edema, regular rate Neurologic: Present: alert and oriented x3 Psychiatric: Present: mood/affect appropriate - Lab 02/25/17 17:43 02/25/17 05:58 Most recent lab results Calcium 8.8 mg/dL (8.6-10.8) 02/25/17 05:58 Magnesium 1.8 mg/dL (1.6-2.6) 02/24/17 06:09 - VTE Documentation of Mechanical Device: Intermittent pneumatic compression device Consult Discharge Plan - Plan Referrals: Martín Odonnell MD [Primary Care Provider] - (office was closed today when i tried to call and they do not take messages please call and make a 7-10 day follow up )
[2017-02-25] MEDS: Sennosides/Docusate Sodium TABLET PO SCH (23:03)
[2017-02-26 06:05] LABS: Hematocrit 28.8 % (35.3-44.9); Hemoglobin 9.4 g/dL (11.5-15.4)
[2017-02-26] MEDS: *HR* Heparin 5,000 UNIT/ML VIAL SQ SCH ×3 (06:54→22:23)
[2017-02-26] MEDS: Sennosides/Docusate Sodium TABLET PO SCH ×2 (08:13→22:23)
[2017-02-26] MEDS: Insulin LISPRO 300 UNITS/3 ML VIAL SQ SCH ×3 (08:14→16:20)
[2017-02-26] MEDS: Dorzolamide/Timolol OPTH 10 ML BOTTLE BOTH EYES SCH ×2 (08:15→23:15)
[2017-02-26] MEDS: Insulin NPH/REG 70/30 100 UNIT/ML (x5UNIT) SQ SCH ×2 (08:47→22:23)
[2017-02-26 11:41] LABS: Albumin 3.2 g/dL (3.5-5.0); Albumin/Globulin Ratio 0.8 (1.1-2.2); Bilirubin,Total 0.6 mg/dL (0.2-1.2); Calcium 8.9 mg/dL (8.6-10.8); Total Protein 7.2 g/dL (6.0-8.3)
[2017-02-26] MEDS ORDERED: Menthol 9.1 MG LOZENGE PO PRN (12:20)
--- NOTE | 2017-02-26 12:22 | Internal Med Progress Note ---
Date of Encounter: 02/26/17 Time of Encounter: 12:22 - Assessment and plan (1) Rectal bleeding Current Visit: Yes Status: Acute (2) Acute kidney injury superimposed on CKD Current Visit: Yes Status: Acute (3) Anemia Current Visit: Yes Status: Acute Qualifiers: Anemia type: unspecified type Qualified Code(s): D64.9 - Anemia, unspecified (4) Diabetes Current Visit: Yes Status: Acute Qualifiers: Qualified Code(s): E11.9 - Type 2 diabetes mellitus without complications (5) DVT prophylaxis Current Visit: Yes Status: Acute - Subjective Interval history: Mrs. Kaplan is seen about a patient bedside. She is alert awake oriented interactive in no acute distress. She states that she tolerated the bowel prep and her colonoscopy without any difficulties. She is feeling well today and denies any pain or discomforts. She understood that there were findings of hemorrhoids and diverticulosis. We discussed bowel regimen and dietary habits. She is concerned about her renal function and looks forward to talking with the dry kiln feeder today. - Constitutional Vitals: Temp Pulse Resp BP Pulse Ox 97.9 F 62 20 136/64 98 02/26/17 03:00 02/26/17 03:00 02/26/17 03:00 02/26/17 03:00 02/26/17 03:00 General appearance: Present: A&O X 3, no acute distress, answers questions appropriately Internal Medicine: Result - Labs CBC & Chem 7: 02/26/17 05:50 02/26/17 11:08 Labs: Short CBC 02/25/17 02/26/17 Range/Units 17:43 05:50 Hgb 10.2 L 9.4 L (11.5-15.4) g/dL Hct 31.9 L 28.8 L (35.3-44.9) % BMP 02/26/17 11:08 Sodium 138 Potassium 4.0 Chloride 113 H Carbon Dioxide 18 L BUN 57 H Creatinine 2.65 H Glucose 107 H Calcium 8.9 Liver Function 02/26/17 Range/Units 11:08 Total Bilirubin 0.6 (0.2-1.2) mg/dL AST 38 H (5-34) Units/L ALT 12 (0-55) Units/L Alkaline Phosphatase 61 (38-126) Units/L Albumin 3.2 L (3.5-5.0) g/dL - ABG Interpretation ABG results: PT/INR, D-dimer PT 11.5 Seconds (9.4-12.1) 02/23/17 17:11 - VTE Documentation of Mechanical Device: Graduated compression elastic hosiery Consult Discharge Plan - Plan Referrals: Martín Odonnell MD [Primary Care Provider] - (office was closed today when i tried to call and they do not take messages please call and make a 7-10 day follow up )
--- NOTE | 2017-02-26 13:10 | Internal Med Progress Note ---
<Estevan Hu - Last Filed: 02/26/17 16:59> Date of Encounter: 02/26/17 Time of Encounter: 13:09 - Assessment and plan (1) Rectal bleeding Current Visit: Yes Status: Acute Assessment and plan: Patient presented with complaint of blood per rectum, stool occult negative hemoglobin decreased nonsignificantly likely secondary to dilutional effect. Patient complained of blood in her stool described as bright red blood over several months. Patient has normocytic anemia which does not correlate with a chronic GI bleed. - Patient denies history of colonoscopy with does have very significant family history for colon cancer in her brother and father - Given the patient's presenting concern and laboratory findings this may be hemorrhoids but cannot rule out diverticular bleed or colon cancer but suspect lower GI in nature. 02/25: Patient underwent colonoscopy with findings of grade 2 hemorrhoids internally, diverticuli and no other significant findings. Patient's hemoglobin remained stable overnight and no findings of blood per rectum. 02/26: Trace blood with bowel movement but not significant amounts of blood. Hemoglobin is stable likely due to hemorrhoids Plan: - Continue senna and when necessary MiraLAX - Follow up outpatient with primary care provider. (2) Acute kidney injury superimposed on CKD Current Visit: Yes Status: Acute Assessment and plan: 77-year-old female presents with a creatinine of 3.57 and GFR 14 with complaint of rectal bleeding. Her previous creatinine was 1.08 and 2013 and 1.19 in 2014. - She has significant medical history of insulin-dependent diabetes, chronic kidney disease stage III and frequent NSAID use. - Her current creatinine is 3.07 which is reduced at 3.57 and this may be acute on chronic kidney disease. Nephrology is involved in the patient's care and are providing rehydration and monitoring renal function. 02/25: Creatinine improved to 2.51 with a GFR of 18 there was not much improvement in the patient's renal function at this time. Will defer further recommendations and follow-up to nephrology. 02/26: Creatinine has not improved from the day prior. Awaiting further recommendations from nephrology. Plan: - Continue dextrose IV fluid - Continue to monitor renal function with a.m. labs - Avoid nephrotoxic medications and renally dose antibiotics - Monitor volume status daily Appreciate nephrology's recommendations (3) Anemia Current Visit: Yes Status: Acute Assessment and plan: Patient presents with normocytic anemia without significant change in hemoglobin since admission. - Patient presented with blood per rectum - Currently stable Qualifiers: Anemia type: iron deficiency Qualified Code(s): D50.0 - Iron deficiency anemia secondary to blood loss (chronic) (4) Diabetes Current Visit: Yes Status: Acute Assessment and plan: Patient has known history of type 2 diabetes for which he takes glipizide and subcutaneous insulin at home. Oral anti-hyperglycemics were held at the time of admission with the setting of GI bleed and acute kidney injury. Plan: - Check glucoses 4 times a day - Humulin 70/30: 10 units subcutaneous at bedtime, 12 units subcutaneous every morning - Low-dose sliding scale Qualifiers: Qualified Code(s): E11.9 - Type 2 diabetes mellitus without complications; N18.5 - Chronic kidney disease, stage 5; Z79.4 - long term care phlebotomist (current) use of insulin (5) DVT prophylaxis Current Visit: Yes Status: Acute Assessment and plan: Subcutaneous heparin every 8 hours (6) SunDown syndrome Current Visit: Yes Status: Acute Assessment and plan: Patient has demonstrated hallucinations around the evening and overnight which is very concerning to the family. During the day she more lucid and answers questions appropriately. - Omeprazole was discontinued as was started just prior to these events - There are no significant electrolyte abnormalities - 77-year-old female who underwent colonoscopy and is out of her home environment may be factoring into her current symptoms. - We will monitor for other causes of her hallucinations. - Subjective Interval history: Mrs. Kaplan is seen about a patient bedside. She is alert awake oriented interactive in no acute distress. She states that she is feeling better and denies any discomforts, pains, other concerning symptoms or signs. She did have a bowel movement which she said had some streaks of blood but not a lot of blood. She has been tolerating food without any nausea or vomiting and denies any urinary burning, discomfort. Her family is at bedside and does mention that they are concerned in that she has been hallucinating when she wakes up. They state that they first noticed it yesterday evening when she took a nap and woke up and thought she saw more people in the room then that were actually there. Her sons do not feel that she is stable to go home today. - Constitutional Vitals: Temp Pulse Resp BP Pulse Ox 97.9 F 62 20 136/64 98 02/26/17 03:00 02/26/17 03:00 02/26/17 03:00 02/26/17 03:00 02/26/17 03:00 General appearance: Present: A&O X 3, no acute distress, answers questions appropriately Exam: General: Patient alert, awake, oriented 3, interactive, in no acute distress HEENT: Normocephalic, atraumatic, pupils equal reactive to light, nasal cavity patent and open septum median position, oral mucosa moist, uvula midline, neck supple trachea midline no palpable lymphadenopathy, no thyromegaly. Chest: Symmetric bilateral correlating with respiratory effort, effort nonlabored. Cardiac: Regular rate and rhythm, grade 2/6 systolic ejection murmur. no bruits appreciated bilateral carotids, Radial pulses 2+ bilateral, posterior tibial and dorsal pedal pulses 2+ bilateral. Respiratory: Clear to auscultation all lung paige Abdomen: Soft, nontender, positive bowel sounds, no palpable masses appreciated on examination Extremities: Symmetric bilateral, bilateral lower extremities lymphedema with signs of venous stasis, nontender to palpation. Neurologic: No focal deficits appreciated on examination. Face symmetric, muscle strength symmetric bilateral upper and lower extremities. Internal Medicine: Result - Labs CBC & Chem 7: 02/26/17 05:50 02/26/17 11:08 Labs: Short CBC 02/25/17 02/26/17 Range/Units 17:43 05:50 Hgb 10.2 L 9.4 L (11.5-15.4) g/dL Hct 31.9 L 28.8 L (35.3-44.9) % BMP 02/26/17 11:08 Sodium 138 Potassium 4.0 Chloride 113 H Carbon Dioxide 18 L BUN 57 H Creatinine 2.65 H Glucose 107 H Calcium 8.9 Liver Function 02/26/17 Range/Units 11:08 Total Bilirubin 0.6 (0.2-1.2) mg/dL AST 38 H (5-34) Units/L ALT 12 (0-55) Units/L Alkaline Phosphatase 61 (38-126) Units/L Albumin 3.2 L (3.5-5.0) g/dL - ABG Interpretation ABG results: PT/INR, D-dimer PT 11.5 Seconds (9.4-12.1) 02/23/17 17:11 - VTE Documentation of Mechanical Device: Graduated compression elastic hosiery Consult Discharge Plan - Plan Referrals: Martín Odonnell MD [Primary Care Provider] - (office was closed today when i tried to call and they do not take messages please call and make a 7-10 day follow up ) <Guero Ovalle - Last Filed: 02/26/17 19:09> Date of Encounter: 02/26/17 - Assessment and plan (1) Rectal bleeding Current Visit: Yes Status: Acute (2) Anemia Current Visit: Yes Status: Acute Qualifiers: Anemia type: iron deficiency Qualified Code(s): 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 Status: Acute (4) CKD (chronic kidney disease) stage 5, GFR less than 15 ml/min Current Visit: Yes Status: Chronic (5) Diabetes Current Visit: Yes Status: Acute Qualifiers: Diabetes mellitus type: type 2 Diabetes mellitus complication status: with kidney complications Diabetes mellitus complication detail: with chronic kidney disease Diabetes mellitus oil heaterman insulin use: with oil heaterman use Chronic kidney disease stage: stage 5, not on chronic dialysis Qualified Code( s): E11.22 - Type 2 diabetes mellitus with diabetic chronic kidney disease; N18.5 - Chronic kidney disease, stage 5; Z79.4 - long term care phlebotomist (current) use of insulin (6) UTI (urinary tract infection) Current Visit: Yes Status: Acute Qualifiers: Urinary tract infection type: acute cystitis Hematuria presence: with hematuria Qualified Code(s): N30.01 - Acute cystitis with hematuria - Constitutional Vitals: Temp Pulse Resp BP Pulse Ox 97.7 F 60 17 135/58 96 02/26/17 15:00 02/26/17 15:00 02/26/17 15:00 02/26/17 15:00 02/26/17 15:00 Internal Medicine: Result - Labs CBC & Chem 7: 02/26/17 05:50 02/26/17 11:08 Labs: Short CBC 02/26/17 Range/Units 05:50 Hgb 9.4 L (11.5-15.4) g/dL Hct 28.8 L (35.3-44.9) % BMP 02/26/17 11:08 Sodium 138 Potassium 4.0 Chloride 113 H Carbon Dioxide 18 L BUN 57 H Creatinine 2.65 H Glucose 107 H Calcium 8.9 Liver Function 02/26/17 Range/Units 11:08 Total Bilirubin 0.6 (0.2-1.2) mg/dL AST 38 H (5-34) Units/L ALT 12 (0-55) Units/L Alkaline Phosphatase 61 (38-126) Units/L Albumin 3.2 L (3.5-5.0) g/dL Urine 02/26/17 Range/Units 17:50 Urine Color Yellow (Yellow) Urine Clarity Cloudy A (Clear) Urine pH 6.0 (5.0-8.0) pH Units Ur Specific [place] 1.011 (1.010-1.025) Urine Protein Negative (Neg-Trace) mg/dL Urine Glucose (UA) Normal (Normal) mg/dL - ABG Interpretation ABG results: PT/INR, D-dimer PT 11.5 Seconds (9.4-12.1) 02/23/17 17:11 - Attending Attestation I examined this patient and my medical decision-making was reviewed with the Resident Physician on 02/26/17. I agree with the documented findings, disposition and treatment plan as described except to the extent set forth below. Ms. Kaplan is currently admitted for acute GI bleed and anemia. She has developed confusion at night. May have UTI. She remains moderate to high risk due to potential for worsening clinical status. Ms Kaplan is up in chair. She seems a little confused. No CP or SOB. No fever or chills. H/H stable Exam Alert. Comfortable Heart reg No wheeze Abd soft No edema I/P 1 GI bleed 2. Confusion Further diagnoses and plan as above
[2017-02-26 15:50] LABS: Lambda Qnt Free Light Chains 3.19 mg/dL (0.57-2.63)
[2017-02-26 18:04] LABS: Bilirubin,Urine Negative (Negative); Blood,Urine Trace (Negative); Clarity,Urine Cloudy (Clear); Color,Urine Yellow (Yellow); Glucose,Urine (UA) Normal (Normal); Ketones,Urine Negative (Negative); Leukocyte Esterase,Urine Large (Negative); Nitrite,Urine Negative (Negative); Protein,Urine Negative (Neg-Trace); Specific Gravity,Urine 1.011 (1.010-1.025); Urobilinogen,Urine Normal (Normal)
[2017-02-26 18:06] LABS: Bacteria,Urine Many per hpf (None-Few); Hyaline Casts,Urine None Seen per lpf (None-Few); Squamous Epithelial Cell,Urine Few per lpf (None-Few); WBC,Urine 50-100 per hpf (0-3)
[2017-02-26 18:14] LABS: Protein/Creatinine Ratio,Urine 0.35 mg/mg (0-0.20)
[2017-02-26 19:18] LABS: Hematocrit 31.3 % (35.3-44.9); Hemoglobin 10.2 g/dL (11.5-15.4)
[2017-02-27] MEDS: *HR* Heparin 5,000 UNIT/ML VIAL SQ SCH ×3 (06:06→21:46)
[2017-02-27 06:28] LABS: Hematocrit 26.5 % (35.3-44.9); Hemoglobin 8.6 g/dL (11.5-15.4)
[2017-02-27] MEDS: Sennosides/Docusate Sodium TABLET PO SCH ×2 (09:00→21:52)
[2017-02-27] MEDS: Dorzolamide/Timolol OPTH 10 ML BOTTLE BOTH EYES SCH ×2 (09:02→21:47)
[2017-02-27] MEDS: Insulin LISPRO 300 UNITS/3 ML VIAL SQ SCH ×3 (09:03→16:09)
[2017-02-27] MEDS: Insulin NPH/REG 70/30 100 UNIT/ML (x5UNIT) SQ SCH ×2 (09:25→21:47)
--- NOTE | 2017-02-27 10:37 | Internal Med Progress Note ---
<Estevan Hu - Last Filed: 02/27/17 14:17> Date of Encounter: 02/27/17 Time of Encounter: 10:34 - Assessment and plan (1) Rectal bleeding Current Visit: Yes Status: Acute Assessment and plan: Patient presented with complaint of blood per rectum, stool occult negative hemoglobin decreased nonsignificantly likely secondary to dilutional effect. Patient complained of blood in her stool described as bright red blood over several months. Patient has normocytic anemia which does not correlate with a chronic GI bleed. - Patient denies history of colonoscopy with does have very significant family history for colon cancer in her brother and father - Given the patient's presenting concern and laboratory findings this may be hemorrhoids but cannot rule out diverticular bleed or colon cancer but suspect lower GI in nature. 02/25: Patient underwent colonoscopy with findings of grade 2 hemorrhoids internally, diverticuli and no other significant findings. Patient's hemoglobin remained stable overnight and no findings of blood per rectum. 02/26: Trace blood with bowel movement but not significant amounts of blood. Hemoglobin is stable likely due to hemorrhoids 02/27: Hemoglobin stable. No change. Plan: - Continue senna and when necessary MiraLAX - Follow up outpatient with primary care provider. (2) Acute kidney injury superimposed on CKD Current Visit: Yes Status: Acute Assessment and plan: 77-year-old female presents with a creatinine of 3.57 and GFR 14 with complaint of rectal bleeding. Her previous creatinine was 1.08 and 2013 and 1.19 in 2014. - She has significant medical history of insulin-dependent diabetes, chronic kidney disease stage III and frequent NSAID use. - Her current creatinine is 3.07 which is reduced at 3.57 and this may be acute on chronic kidney disease. Nephrology is involved in the patient's care and are providing rehydration and monitoring renal function. 02/25: Creatinine improved to 2.51 with a GFR of 18 there was not much improvement in the patient's renal function at this time. Will defer further recommendations and follow-up to nephrology. 02/26: Creatinine has not improved from the day prior. Awaiting further recommendations from nephrology. 02/27: Creatinine has not improved. Spoke with nephrology and will keep patient one more day since there is any improvement tomorrow. Plan: - Continue to monitor renal function with a.m. labs - Avoid nephrotoxic medications and renally dose antibiotics - Monitor volume status daily Appreciate nephrology's recommendations (3) Anemia Current Visit: Yes Status: Acute Assessment and plan: Patient presents with normocytic anemia without significant change in hemoglobin since admission. - Patient presented with blood per rectum - Currently stable Qualifiers: Anemia type: iron deficiency Qualified Code(s): D50.0 - Iron deficiency anemia secondary to blood loss (chronic) (4) Diabetes Current Visit: Yes Status: Acute Assessment and plan: Patient has known history of type 2 diabetes for which he takes glipizide and subcutaneous insulin at home. Oral anti-hyperglycemics were held at the time of admission with the setting of GI bleed and acute kidney injury. Plan: - Check glucoses 4 times a day - Humulin 70/30: 10 units subcutaneous at bedtime, 12 units subcutaneous every morning - Low-dose sliding scale Qualifiers: Diabetes mellitus type: type 2 Diabetes mellitus complication status: with kidney complications Diabetes mellitus complication detail: with chronic kidney disease Diabetes mellitus terminal operations manager insulin use: with terminal operations manager use Chronic kidney disease stage: stage 5, not on chronic dialysis Qualified Code( s): E11.22 - Type 2 diabetes mellitus with diabetic chronic kidney disease; N18.5 - Chronic kidney disease, stage 5; Z79.4 - assisted (current) use of insulin (5) SunDown syndrome Current Visit: Yes Status: Acute Assessment and plan: Hallucinations were absent last evening. Patient has demonstrated hallucinations around the evening and overnight which is very concerning to the family. During the day she more lucid and answers questions appropriately. - Omeprazole was discontinued as was started just prior to these events - There are no significant electrolyte abnormalities - 77-year-old female who underwent colonoscopy and is out of her home environment may be factoring into her current symptoms. - We will monitor for other causes of her hallucinations. (6) UTI (urinary tract infection) Current Visit: Yes Status: Acute Assessment and plan: 77-year-old female with history of recurrent urinary tract infections, started having hallucinations yesterday afternoon and a urinalysis was obtained which was concerning for urinary tract infection. 02/27: Urine culture growing gram-negative rods, patient improving clinically Plan: - Continue on ceftriaxone IV - We will monitor mental status, volume status - We will recommend follow-up with her urologist after discharge. Qualifiers: Qualified Code(s): N39.0 - Urinary tract infection, site not specified; R31.9 - Hematuria, unspecified (7) DVT prophylaxis Current Visit: Yes Status: Acute Assessment and plan: Subcutaneous heparin every 8 hours - Subjective Interval history: Mrs. Kaplan is seen about a patient bedside. She is alert awake oriented interactive in no acute distress. She states that she is feeling better and denies any discomforts, pains, other concerning symptoms or signs. She denies any other concerns at this time. She denies any urinary burning or blood in her urine. - Constitutional Vitals: Temp Pulse Resp BP Pulse Ox 97.9 F 61 19 117/43 98 02/27/17 04:00 02/27/17 04:00 02/27/17 04:00 02/27/17 04:00 02/27/17 04:00 General appearance: Present: A&O X 3, no acute distress, answers questions appropriately Exam: General: Patient alert, awake, oriented 3, interactive, in no acute distress HEENT: Normocephalic, atraumatic, pupils equal reactive to light, nasal cavity patent and open septum median position, oral mucosa moist, uvula midline, neck supple trachea midline no palpable lymphadenopathy, no thyromegaly. Chest: Symmetric bilateral correlating with respiratory effort, effort nonlabored. Cardiac: Regular rate and rhythm, grade 2/6 systolic ejection murmur. no bruits appreciated bilateral carotids, Radial pulses 2+ bilateral, posterior tibial and dorsal pedal pulses 2+ bilateral. Respiratory: Clear to auscultation all lung paige Abdomen: Soft, nontender, positive bowel sounds, no palpable masses appreciated on examination Extremities: Symmetric bilateral, bilateral lower extremities lymphedema with signs of venous stasis, nontender to palpation. Neurologic: No focal deficits appreciated on examination. Face symmetric, muscle strength symmetric bilateral upper and lower extremities. Internal Medicine: Result - Labs CBC & Chem 7: 02/27/17 11:00 02/27/17 11:00 Labs: Short CBC 02/26/17 02/27/17 Range/Units 19:03 06:13 Hgb 10.2 L 8.6 L D (11.5-15.4) g/dL Hct 31.3 L 26.5 L (35.3-44.9) % BMP 02/26/17 11:08 Sodium 138 Potassium 4.0 Chloride 113 H Carbon Dioxide 18 L BUN 57 H Creatinine 2.65 H Glucose 107 H Calcium 8.9 Liver Function 02/26/17 Range/Units 11:08 Total Bilirubin 0.6 (0.2-1.2) mg/dL AST 38 H (5-34) Units/L ALT 12 (0-55) Units/L Alkaline Phosphatase 61 (38-126) Units/L Albumin 3.2 L (3.5-5.0) g/dL Urine 02/26/17 Range/Units 17:50 Urine Color Yellow (Yellow) Urine Clarity Cloudy A (Clear) Urine pH 6.0 (5.0-8.0) pH Units Ur Specific [place] 1.011 (1.010-1.025) Urine Protein Negative (Neg-Trace) mg/dL Urine Glucose (UA) Normal (Normal) mg/dL - ABG Interpretation ABG results: PT/INR, D-dimer PT 11.5 Seconds (9.4-12.1) 02/23/17 17:11 - VTE Documentation of Mechanical Device: Intermittent pneumatic compression device Consult Discharge Plan - Plan Referrals: Martín Odonnell MD [Primary Care Provider] - (office was closed today when i tried to call and they do not take messages please call and make a 7-10 day follow up ) <Guero Ovalle - Last Filed: 02/27/17 18:25> Date of Encounter: 02/27/17 - Assessment and plan (1) UTI (urinary tract infection) Current Visit: Yes Status: Acute Qualifiers: Urinary tract infection type: acute cystitis Hematuria presence: with hematuria Qualified Code(s): N30.01 - Acute cystitis with hematuria (2) Rectal bleeding Current Visit: Yes Status: Acute (3) Anemia Current Visit: Yes Status: Acute Qualifiers: Anemia type: iron deficiency Qualified Code(s): D50.0 - Iron deficiency anemia secondary to blood loss (chronic) (4) SunDown syndrome Current Visit: Yes Status: Resolved (5) CKD (chronic kidney disease) stage 5, GFR less than 15 ml/min Current Visit: Yes Status: Chronic (6) Diabetes Current Visit: Yes Status: Acute Qualifiers: Diabetes mellitus type: type 2 Diabetes mellitus complication status: with kidney complications Diabetes mellitus complication detail: with chronic kidney disease Diabetes mellitus terminal operations manager insulin use: with longterm use Chronic kidney disease stage: stage 5, not on chronic dialysis Qualified Code( s): E11.22 - Type 2 diabetes mellitus with diabetic chronic kidney disease; N18.5 - Chronic kidney disease, stage 5; Z79.4 - assisted (current) use of insulin - Constitutional Vitals: Temp Pulse Resp BP Pulse Ox 97.8 F 67 18 147/64 97 02/27/17 15:00 02/27/17 15:00 02/27/17 15:00 02/27/17 15:00 02/27/17 15:00 Internal Medicine: Result - Labs CBC & Chem 7: 02/27/17 11:00 02/27/17 11:00 Labs: Short CBC 02/26/17 02/27/17 02/27/17 Range/Units 19:03 06:13 11:00 WBC 9.7 (4.3-11.1) K/mcL Hgb 10.2 L 8.6 L D 9.8 L (11.5-15.4) g/dL Hct 31.3 L 26.5 L 30.7 L (35.3-44.9) % Plt Count 197 (140-400) K/mcL Neutrophils # 4.6 (1.6-8.9) K/mcL BMP 02/27/17 11:00 Sodium 138 Potassium 4.3 Chloride 112 H Carbon Dioxide 19 BUN 52 H Creatinine 2.56 H Glucose 167 H Calcium 8.8 Liver Function 02/27/17 Range/Units 11:00 Total Bilirubin 0.5 (0.2-1.2) mg/dL AST 44 H (5-34) Units/L ALT 13 (0-55) Units/L Alkaline Phosphatase 58 (38-126) Units/L Albumin 3.1 L (3.5-5.0) g/dL - ABG Interpretation ABG results: PT/INR, D-dimer PT 11.5 Seconds (9.4-12.1) 02/23/17 17:11 - Attending Attestation I examined this patient and my medical decision-making was reviewed with the Resident Physician on 02/27/17. I agree with the documented findings, disposition and treatment plan as described except to the extent set forth below. Ms Kaplan is currently admitted for acute GI bleed and now complicated with UTI. She remains moderate to high risk due to potential for worsening infectious status. Ms Kaplan is doing better today. Less confused and less symptomatic. No fever or chills. No CP or SOB. Constipated. Exam Alert Comfortable Mucus membranes dry Heart reg No wheeze Abd soft No edema I/P 1. UTI - cx pending. On Rocephin 2. GI bleed - H/H stable Anticipate d/c tomorrow.
[2017-02-27 11:19] LABS: Basophils # 0.1 K/mcL (0.0-0.2); Basophils % 0.6 %; Eosinophils # 0.7 K/mcL (0.0-0.6); Hematocrit 30.7 % (35.3-44.9); Hemoglobin 9.8 g/dL (11.5-15.4); Immature Granulocytes % 0.3 % (0-4); Lymphocytes # 3.3 K/mcL (0.6-4.6); Lymphocytes % 34.2 %; Mean Corpuscular HGB Conc 31.9 g/dL (31.6-35.5); Mean Corpuscular Hemoglobin 28.8 pg (28.0-33.3); Mean Corpuscular Volume 90.3 fL (83.0-100.0); Mean Platelet Volume 13.2 fL (9.4-12.4); Monocytes # 1.1 K/mcL (0.0-1.3); Monocytes % 11.2 %; Neutrophils # 4.6 K/mcL (1.6-8.9); Platelet Count 197 K/mcL (140-400); Red Cell Distribution Width 14.4 % (11.5-14.5); Segmented Neutrophils % 46.7 %
[2017-02-27 11:27] LABS: Albumin 3.1 g/dL (3.5-5.0); Albumin/Globulin Ratio 0.8 (1.1-2.2); Bilirubin,Total 0.5 mg/dL (0.2-1.2); Calcium 8.8 mg/dL (8.6-10.8); Globulin 4.1 g/dL (2.4-3.5); Potassium 4.3 mEq/L (3.5-4.5); Total Protein 7.2 g/dL (6.0-8.3)
[2017-02-28 05:39] LABS: Basophils # 0.1 K/mcL (0.0-0.2); Basophils % 0.7 %; Eosinophils # 0.6 K/mcL (0.0-0.6); Eosinophils % 7.3 %; Hematocrit 27.3 % (35.3-44.9); Hemoglobin 8.9 g/dL (11.5-15.4); Immature Granulocytes % 0.2 % (0-4); Lymphocytes # 3.4 K/mcL (0.6-4.6); Lymphocytes % 39.8 %; Mean Corpuscular HGB Conc 32.6 g/dL (31.6-35.5); Mean Corpuscular Hemoglobin 29.7 pg (28.0-33.3); Mean Platelet Volume 13.5 fL (9.4-12.4); Monocytes # 1.2 K/mcL (0.0-1.3); Monocytes % 13.4 %; Neutrophils # 3.3 K/mcL (1.6-8.9); Platelet Count 189 K/mcL (140-400); Red Cell Distribution Width 14.4 % (11.5-14.5); Segmented Neutrophils % 38.6 %
[2017-02-28 05:51] LABS: Calcium 8.5 mg/dL (8.6-10.8); Potassium 3.7 mEq/L (3.5-4.5)
[2017-02-28 05:53] LABS: Albumin 2.8 g/dL (3.5-5.0); Albumin/Globulin Ratio 0.8 (1.1-2.2); Bilirubin,Total 0.5 mg/dL (0.2-1.2); Calcium 8.4 mg/dL (8.6-10.8); Globulin 3.5 g/dL (2.4-3.5); Potassium 3.6 mEq/L (3.5-4.5); Total Protein 6.3 g/dL (6.0-8.3)
[2017-02-28] MEDS: *HR* Heparin 5,000 UNIT/ML VIAL SQ SCH (06:18)
[2017-02-28 07:50] LABS: Complement Component 3 109 mg/dL (88-201)
[2017-02-28 07:51] LABS: ANA IgG by ELISA NONE DETECTED (None Detected); Complement Component 4 22 mg/dL (10-40)
[2017-02-28 08:23] VITALS: BP 130/70
[2017-02-28] MEDS: Sennosides/Docusate Sodium TABLET PO SCH (08:38)
--- NOTE | 2017-02-28 12:04 | Discharge Summary ---
<Estevan Hu Markel - Last Filed: 02/28/17 12:00> Date of Encounter: 02/28/17 Time of Encounter: 12:00 - Discharge Diagnosis (1) Rectal bleeding Priority: Primary Status: Acute (2) Acute kidney injury superimposed on CKD Priority: Primary Status: Acute (3) Anemia Priority: Primary Status: Acute Qualifiers: Anemia type: iron deficiency Qualified Code(s): D50.0 - Iron deficiency anemia secondary to blood loss (chronic) (4) Diabetes Priority: Secondary Status: Acute Qualifiers: Diabetes mellitus type: type 2 Diabetes mellitus complication status: with kidney complications Diabetes mellitus complication detail: with chronic kidney disease Diabetes mellitus assisted insulin use: with terminal clerk use Chronic kidney disease stage: stage 5, not on chronic dialysis Qualified Code( s): E11.22 - Type 2 diabetes mellitus with diabetic chronic kidney disease; N18.5 - Chronic kidney disease, stage 5; Z79.4 - moth exterminator (current) use of insulin (5) SunDown syndrome Priority: Secondary Status: Resolved (6) UTI (urinary tract infection) Priority: Primary Status: Acute Qualifiers: Qualified Code(s): N39.0 - Urinary tract infection, site not specified; R31.9 - Hematuria, unspecified (7) DVT prophylaxis Status: Acute - Discharge Medications Prescriptions: Cefdinir [Omnicef] 300 mg PO DAILY #3 capsule Home Medications: Acetaminophen/Diphenhydramine [Acetaminophen Pm Caplet] 1 each PO HS PRN [History] Atenolol [Tenormin] 25 mg PO DAILY 02/23/17 [History] Dorzolamide/Timolol [Cosopt] 1 drop OP BID 02/23/17 [History] Insulin NPH Hum/Reg Insulin Hm [Humulin 70-30 Vial] 10 unit SQ HS 02/23/17 [ History] Insulin NPH Hum/Reg Insulin Hm [Humulin 70-30 Vial] 12 unit SQ QAM 02/23/17 [ History] Lisinopril-HCTZ 10-12.5 [Prinzide 10-12.5] 1 tab PO DAILY 02/23/17 [History] Pioglitazone HCl 30 mg PO DAILY 02/23/17 [History] Simvastatin [Zocor] 40 mg PO HS 02/23/17 [History] glipiZIDE [Glipizide] 10 mg PO BID 02/23/17 [History] Cefdinir [Omnicef] 300 mg PO DAILY #3 capsule 02/28/17 [Rx] Allergies/Adverse Reactions: 3 Allergy/AdvReac Type Severity Reaction Status Date / Time lidocaine Allergy See Verified 02/23/17 16:30 Comments Date of admission: 02/24/17 08:30 Primary care physician: Martín Odonnell, Discharging clinician: Estevan Hu Anticipated date of discharge: 02/28/17 - Patient Status Disposition: Home, Self-Care Condition: Fair Functional capacity at discharge: independent ambulation Overall status at discharge: patient is progressing back to baseline - Discharge Instructions Follow Up With: Rafat Garcia MD [Partnered Physician] - 03/23/17 3:30 pm Martín Odonnell MD [Primary Care Provider] - (office was closed today when i tried to call and they do not take messages please call and make a 7-10 day follow up ) Additional Instructions: follow up with PCP in the next 3-5 days for re-evaluation and H&H Take medications as prescribed Follow up with Nephrology for follow up on kidney function. - Diet and Activity Activity: increase activity as tolerated Diet: diabetic diet, low salt diet Hospital course: Ms. Kaplan is a 77 year old female - Time Spent with Patient Total time spent providing and/or coordinating discharge services: - Constitutional Vitals: Temp Pulse Resp BP Pulse Ox 97.4 F L 68 17 130/70 97 02/28/17 11:58 02/28/17 11:58 02/28/17 11:58 02/28/17 08:16 02/28/17 11:58 General appearance: Present: A&O X 3, no acute distress, answers questions appropriately - VTE Documentation of Mechanical Device: Intermittent pneumatic compression device <Guero Ovalle - Last Filed: 02/28/17 20:11> Date of Encounter: 02/28/17 - Discharge Diagnosis (1) Rectal bleeding Status: Acute (2) UTI (urinary tract infection) Priority: Secondary Status: Acute Qualifiers: Urinary tract infection type: acute cystitis Hematuria presence: with hematuria Qualified Code(s): N30.01 - Acute cystitis with hematuria (3) Anemia Status: Acute Qualifiers: Anemia type: iron deficiency Qualified Code(s): D50.0 - Iron deficiency anemia secondary to blood loss (chronic) (4) SunDown syndrome Status: Resolved (5) CKD (chronic kidney disease) stage 5, GFR less than 15 ml/min Priority: Secondary Status: Chronic (6) Diabetes Status: Acute Qualifiers: Diabetes mellitus type: type 2 Diabetes mellitus complication status: with kidney complications Diabetes mellitus complication detail: with chronic kidney disease Diabetes mellitus terminal clerk insulin use: with terminal clerk use Chronic kidney disease stage: stage 5, not on chronic dialysis Qualified Code( s): E11.22 - Type 2 diabetes mellitus with diabetic chronic kidney disease; N18.5 - Chronic kidney disease, stage 5; Z79.4 - moth exterminator (current) use of insulin Date of admission: 02/24/17 08:30 Primary care physician: Martín Odonnell, Hospital course: Ms. Kaplan is a 77 year old female - Time Spent with Patient Total time spent providing and/or coordinating discharge services: 38min - Constitutional Vitals: Temp Pulse Resp BP Pulse Ox 97.4 F L 68 17 130/70 97 02/28/17 11:58 02/28/17 11:58 02/28/17 11:58 02/28/17 08:16 02/28/17 11:58 - Attending Attestation I examined this patient and my medical decision-making was reviewed with the Resident Physician on 02/28/17. I agree with the documented findings, disposition and treatment plan as described except to the extent set forth below. Ms. Kaplan has been admitted for GI bleed and anemia. She has UTI as well and has done better with abx. She is afebrile with stable vitals and ready for discharge home. Exam Alert. Comfortable Heart reg No wheeze Abd soft Plan D/C home today.
--- NOTE | 2017-02-28 20:36 | Electrocardiograph Report ---
[place] [id number] Test Date: 2017-02-23 Pat Name: Agnieszka Kaplan Department: 105 Room: [id number] Gender: F Chuck Splitter: : [id number] Requested By: Deyvi Hatch Order Number: [id number] Reading MD: Main Caldera MD Measurements Intervals [place] Rate: 63 P: 24 WI: 280 QRS: -47 QRSD: 142 T: 70 QT: 441 QTc: 449 Interpretive Statements SINUS RHYTHM WITH SINUS ARRHYTHMIA WITH FIRST DEGREE AV BLOCK MARKED LEFT AXIS DEVIATION LEFT BUNDLE BRANCH BLOCK BASELINE ARTIFACT Electronically Signed On 02-28-2017 20:35:08 EDT by Main Caldera MD
== END 2017-02-28 15:15 | disposition home or self-care (01) | DRG 394 ==
LOC: EMEROO 16:04 → 2NENU 16:04 → SUATTDRO 20:46 → 2NENU 21:53 → SUATTDRO 02-24 08:30
PROVIDERS: ADMIT Pediatrics; ATTEND Internal Medicine

== ENCOUNTER 2018-03-25 14:23 | Inpatient (IN) ==
--- NOTE | 2018-03-25 14:28 | Emergency Department Note ---
Disposition Clinical Impression: Ulcer of foot with necrosis of muscle, Leukocytosis Disposition: Admitted As Inpatient Condition: Serious General Adult HPI - General Stated complaint: Necrotic Foot Time Seen by Provider: 03/25/18 14:27 - Related Data Home Medications Medication Instructions Recorded Confirmed Dorzolamide/Timolol [Cosopt] 1 drop OP BID 02/23/17 03/25/18 Insulin NPH Hum/Reg Insulin Hm 10 unit SQ BID 02/23/17 03/25/18 [Humulin 70-30 Vial] Pioglitazone HCl 30 mg PO DAILY 02/23/17 03/25/18 Simvastatin [Zocor] 40 mg PO HS 02/23/17 03/25/18 glipiZIDE [Glipizide] 10 mg PO BID 02/23/17 03/25/18 Ergocalciferol (VITAMIN D2) 50,000 unit PO QWEEK 03/25/18 03/25/18 [Vitamin D2] amLODIPine [Norvasc] 5 mg PO DAILY 03/25/18 03/25/18 Allergies Allergy/AdvReac Type Severity Reaction Status Date / Time lidocaine Allergy See Verified 02/23/17 16:30 Comments Past Medical History - Past Medical History Medical history: Reports: coronary artery disease, diabetes, hypertension, renal disease Surgical history: Reports: appendectomy, coronary bypass (CABG), orthopedic, other, splenectomy Psychiatric history: Reports: no psych history - Social History Smoking Status: Never smoker Smokeless Tobacco Status: No Alcohol use: Reports: none Drug use: Reports: none Course Vital Signs Temperature 97.7 F 03/25/18 14:29 Pulse Rate 79 03/25/18 14:29 Respiratory Rate 18 03/25/18 14:29 Blood Pressure 102/61 03/25/18 14:29 O2 Sat by Pulse Oximetry 99 03/25/18 14:29 Temperature 97.7 F 03/25/18 14:29 Pulse Rate 97 03/25/18 16:37 Respiratory Rate 20 03/25/18 16:37 Blood Pressure 118/60 03/25/18 16:37 O2 Sat by Pulse Oximetry 98 03/25/18 16:37 Oxygen Delivery Oxygen Delivery Room Air Medical Decision Making - Lab Data Result diagrams: 03/25/18 14:58 03/25/18 14:58 Lab Results 03/25/18 03/25/18 03/25/18 Range/Units 14:58 14:58 14:58 WBC 26.6 H (4.3-11.1) K/mcL RBC 3.74 L (3.82-4.97) M/mcL Hgb 10.7 L (11.5-15.4) g/dL Hct 31.6 L (35.3-44.9) % MCV 84.5 (83.0-100.0) fL MCH 28.6 (28.0-33.3) pg MCHC 33.9 (31.6-35.5) g/dL RDW 14.2 (11.5-14.5) % Plt Count 382 (140-400) K/mcL MPV 13.1 H (9.4-12.4) fL Immature Gran % 1.0 (0-4) % Seg Neutrophils % 85.2 % Lymphocytes % 6.6 % Monocytes % 6.3 % Eosinophils % 0.7 % Basophils % 0.2 % Neutrophils # 22.7 H (1.6-8.9) K/mcL Lymphocytes # 1.8 (0.6-4.6) K/mcL Monocytes # 1.7 H (0.0-1.3) K/mcL Eosinophils # 0.2 (0.0-0.6) K/mcL Basophils # 0.1 (0.0-0.2) K/mcL Platelet Estimate Increased H (Normal) Sodium 131 L (136-145) mEq/L Potassium 4.1 (3.5-5.1) mEq/L Chloride 102 (98-107) mEq/L Carbon Dioxide 21 L (23-29) mEq/L BUN 85 H (8-23) mg/dL Creatinine 2.20 H (0.60-1.20) mg/dL Est GFR ( Amer) 26 L (> 60) Est GFR (Non-Af Amer) 21 L (> 60) BUN/Creatinine Ratio 39 H (6-26) Glucose 325 H (70-105) mg/dL Calculated Osmolality 310 H (280-300) Lactic Acid (0.5-2.2) mmol/L Calcium 9.2 (8.6-10.3) mg/dL Creatine Kinase 25 L (30-223) Units/L C-Reactive Protein 232 H (Less than 10) mg/L 03/25/18 Range/Units 14:58 WBC (4.3-11.1) K/mcL RBC (3.82-4.97) M/mcL Hgb (11.5-15.4) g/dL Hct (35.3-44.9) % MCV (83.0-100.0) fL MCH (28.0-33.3) pg MCHC (31.6-35.5) g/dL RDW (11.5-14.5) % Plt Count (140-400) K/mcL MPV (9.4-12.4) fL Immature Gran % (0-4) % Seg Neutrophils % % Lymphocytes % % Monocytes % % Eosinophils % % Basophils % % Neutrophils # (1.6-8.9) K/mcL Lymphocytes # (0.6-4.6) K/mcL Monocytes # (0.0-1.3) K/mcL Eosinophils # (0.0-0.6) K/mcL Basophils # (0.0-0.2) K/mcL Platelet Estimate (Normal) Sodium (136-145) mEq/L Potassium (3.5-5.1) mEq/L Chloride (98-107) mEq/L Carbon Dioxide (23-29) mEq/L BUN (8-23) mg/dL Creatinine (0.60-1.20) mg/dL Est GFR ( Amer) (> 60) Est GFR (Non-Af Amer) (> 60) BUN/Creatinine Ratio (6-26) Glucose (70-105) mg/dL Calculated Osmolality (280-300) Lactic Acid 0.8 (0.5-2.2) mmol/L Calcium (8.6-10.3) mg/dL Creatine Kinase (30-223) Units/L C-Reactive Protein (Less than 10) mg/L Critical Care Time Critical Care Time: Yes Total Critical Care Time: 30 Attestation: The high probability of a clinically significant, sudden or life threatening deterioration of the [] system(s) required my full and direct attention, intervention and personal management. The aggregate critical care time was [] minutes. This time is in addition to time spent performing reported procedures but includes the following: [] Data Review and interpretation [] Patient assessment and monitoring of vital signs [] Documentation [] Medication orders and management Attestation Statement - Attestation Attestation: I examined this patient and my medical decision-making was reviewed with the Resident Physician. I agree with the documented findings, disposition and treatment plan as described except to the extent set forth below. [id number] time provided Patient arrives by EMS from home. On exam she has a foul-smelling necrotic left foot, mostly to the medial and plantar surface.
[2018-03-25] MEDS ORDERED: 0.9 % Sodium Chloride 1,000 ML IVC ONE (14:34)
[2018-03-25] MEDS ORDERED: Piperacillin/Tazobactam 3.375 GM in Water for inj. (sterile) 20 ML 20 ML IVP ONE (14:36)
[2018-03-25] MEDS ORDERED: Isovue-370 500 ML INFUS..BTL IV ONE ×2 (14:36→21:00)
[2018-03-25 15:07] LABS: Basophils % 0.2 %; Eosinophils % 0.7 %; Monocytes % 6.3 %
[2018-03-25 15:08] LABS: Basophils # 0.1 K/mcL (0.0-0.2); Eosinophils # 0.2 K/mcL (0.0-0.6); Hematocrit 31.6 % (35.3-44.9); Hemoglobin 10.7 g/dL (11.5-15.4); Lymphocytes # 1.8 K/mcL (0.6-4.6); Lymphocytes % 6.6 %; Mean Corpuscular HGB Conc 33.9 g/dL (31.6-35.5); Mean Corpuscular Hemoglobin 28.6 pg (28.0-33.3); Mean Corpuscular Volume 84.5 fL (83.0-100.0); Mean Platelet Volume 13.1 fL (9.4-12.4); Monocytes # 1.7 K/mcL (0.0-1.3); Neutrophils # 22.7 K/mcL (1.6-8.9); Platelet Count 382 K/mcL (140-400); Red Blood Count 3.74 M/mcL (3.82-4.97); Red Cell Distribution Width 14.2 % (11.5-14.5); Segmented Neutrophils % 85.2 %
--- NOTE | 2018-03-25 15:15 | Emergency Department Note ---
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 Leukocytosis Qualifiers: Leukocytosis type: other Qualified Code(s): D72.828 - Other elevated white blood cell count Disposition: Admitted As Inpatient Condition: Serious Referrals: Isabelle Joseph REMOTE SENSING SURVEYOR [Primary Care Provider] - Forms: ED Satisfaction Letter Skin/Abscess/FB HPI Chief complaint: ED Recheck/Abnormal Lab/Rx Stated complaint: Necrotic Foot Time Seen by Provider: 03/25/18 14:27 Source: patient, family Mode of arrival: EMS Limitations: no limitations Nursing Notes Reviewed: Yes Vital Signs Reviewed: Yes HPI Narrative: 78-year-old female history of atrial fibrillation, poorly controlled diabetes who presents to the ER via EMS due to a left foot wound. Neither the patient nor her are sure of when this started however they believe a few days. States that the dog walked across her foot and think maybe she punctured it. States that today when they took off her socks they noticed an area of black on her foot. She does report weakness lately and her has been having help her more frequently. Denies any fevers nausea vomiting or diarrhea. Denies any new neuropathy to her foot. States the dog has been licking her foot. She has not been on any antibiotics. No other complaints. Pt Subjective Complaint: lesion, discoloration Onset (ago): day(s) Tetanus Up to Date: unsure Location: L foot Improves with: none Worsens with: none Context: none Associated symptoms: Reports: denies other symptoms Treatments prior to arrival: none Home Medications Medication Instructions Recorded Confirmed Dorzolamide/Timolol [Cosopt] 1 drop OP BID 02/23/17 03/25/18 Insulin NPH Hum/Reg Insulin Hm 10 unit SQ BID 02/23/17 03/25/18 [Humulin 70-30 Vial] Pioglitazone HCl 30 mg PO DAILY 02/23/17 03/25/18 Simvastatin [Zocor] 40 mg PO HS 02/23/17 03/25/18 glipiZIDE [Glipizide] 10 mg PO BID 02/23/17 03/25/18 Ergocalciferol (VITAMIN D2) 50,000 unit PO QWEEK 03/25/18 03/25/18 [Vitamin D2] amLODIPine [Norvasc] 5 mg PO DAILY 03/25/18 03/25/18 Allergies Allergy/AdvReac Type Severity Reaction Status Date / Time lidocaine Allergy See Verified 02/23/17 16:30 Comments All systems ED: reviewed and negative except as stated. Constitutional: Denies: fever, chills Gastrointestinal: Denies: nausea, vomiting Integumentary: Reports: lesions Neurological: Reports: numbness Past Medical History - Past Medical History Attestation: Yes The following information was validated with the patient. Source: patient, obtained from family Medical history: Reports: coronary artery disease, diabetes, hypertension, renal disease Surgical history: Reports: appendectomy, coronary bypass (CABG), orthopedic, other, splenectomy Psychiatric history: Reports: no psych history - Social History Smoking Status: Never smoker Smokeless Tobacco Status: No Alcohol use: Reports: none Drug use: Reports: none Physical Exam - General Limitations: no limitations General appearance: alert, in no apparent distress - Head Head exam: atraumatic, normocephalic - Eye Eye exam: Present: normal appearance - ENT ENT exam: normal exam - Neck Neck exam: Present: normal inspection - Chest Chest inspection: Present: normal inspection, symmetric chest wall rise - Respiratory Respiratory exam: Present: normal lung sounds bilaterally - Cardiovascular Cardiovascular exam: Present: normal rhythm, irregular rhythm, normal heart sounds - Abdominal Exam Abdominal exam: Present: soft, Non-Tender. Absent: tenderness, distention, rigidity - Extremities Exam Extremities exam: Present: normal inspection, full ROM - Expanded Upper Extremity Exam Shoulder exam: Present: normal inspection, full ROM Arm exam: Present: normal inspection, full ROM Elbow exam: Present: normal inspection, full ROM Forearm/Wrist exam: Present: normal inspection, full ROM Hand exam: Present: normal inspection, full ROM - Expanded Lower Extremity Exam Hip/Pelvis exam: Present: normal inspection, full ROM Upper leg exam: Present: normal inspection, full ROM Knee exam: Present: normal inspection, full ROM Lower leg exam: Present: normal inspection, full ROM Ankle exam: Present: normal inspection, full ROM Foot/toe exam: Present: normal inspection, full ROM 1 - Extensive area of necrotic tissue to the plantar aspect of the left foot that wraps around into the medial aspect. There is overlying erythema to the dorsum of the foot. I was able to briefly palpate a dorsalis pedis pulse. Neurovascular/Tendon exam: Present: sensory deficit - Skin Skin exam: Present: warm, dry Course Course Narrative: Patient seen and examined. Vital signs reviewed. Plan for CT imaging for evaluation and rule out of gas gangrene or necrotizing fasciitis, labs, IV antibiotics and admission with podiatry consultation. - Reevaluation(s) Reevaluation #1: Discussed results of imaging with patient and family. Discussed need for emergent evaluation by podiatry. - Consultations Consultation #1: I spoke with the on-call event lighting specialist. Discussed patient's history, exam, imaging and labs and concerns. They were able to view the images and are coming in to evaluate the patient now. Vital Signs Temperature 97.7 F 03/25/18 14:29 Pulse Rate 79 03/25/18 14:29 Respiratory Rate 18 03/25/18 14:29 Blood Pressure 102/61 03/25/18 14:29 O2 Sat by Pulse Oximetry 99 03/25/18 14:29 Temperature 97.7 F 03/25/18 14:29 Pulse Rate 97 03/25/18 16:37 Respiratory Rate 20 03/25/18 16:37 Blood Pressure 118/60 03/25/18 16:37 O2 Sat by Pulse Oximetry 98 03/25/18 16:37 Oxygen Delivery Oxygen Delivery Room Air Skin/Abscess/Foreign Body - [facility] Narrative Medical decision making narrative: 78-year-old female presenting with left foot wound found to have a gas producing infectious etiology. She is noted to have a leukocytosis here with a normal lactate. Cultures obtained. She received broad-spectrum antibiotics including vancomycin, Zosyn and Cipro. Clindamycin was added for air producing. Case discussed with podiatry. Plan for operative intervention for her infection. The patient is admitted to the hospitalist service with podiatry consultation. - Lab Data Lab results reviewed: Yes I reviewed the patient's lab results. Result diagrams: 03/25/18 14:58 03/25/18 14:58 Lab Results 03/25/18 03/25/18 03/25/18 Range/Units 14:58 14:58 14:58 WBC 26.6 H (4.3-11.1) K/mcL RBC 3.74 L (3.82-4.97) M/mcL Hgb 10.7 L (11.5-15.4) g/dL Hct 31.6 L (35.3-44.9) % MCV 84.5 (83.0-100.0) fL MCH 28.6 (28.0-33.3) pg MCHC 33.9 (31.6-35.5) g/dL RDW 14.2 (11.5-14.5) % Plt Count 382 (140-400) K/mcL MPV 13.1 H (9.4-12.4) fL Immature Gran % 1.0 (0-4) % Seg Neutrophils % 85.2 % Lymphocytes % 6.6 % Monocytes % 6.3 % Eosinophils % 0.7 % Basophils % 0.2 % Neutrophils # 22.7 H (1.6-8.9) K/mcL Lymphocytes # 1.8 (0.6-4.6) K/mcL Monocytes # 1.7 H (0.0-1.3) K/mcL Eosinophils # 0.2 (0.0-0.6) K/mcL Basophils # 0.1 (0.0-0.2) K/mcL Platelet Estimate Increased H (Normal) Sodium 131 L (136-145) mEq/L Potassium 4.1 (3.5-5.1) mEq/L Chloride 102 (98-107) mEq/L Carbon Dioxide 21 L (23-29) mEq/L BUN 85 H (8-23) mg/dL Creatinine 2.20 H (0.60-1.20) mg/dL Est GFR ( Amer) 26 L (> 60) Est GFR (Non-Af Amer) 21 L (> 60) BUN/Creatinine Ratio 39 H (6-26) Glucose 325 H (70-105) mg/dL Calculated Osmolality 310 H (280-300) Lactic Acid (0.5-2.2) mmol/L Calcium 9.2 (8.6-10.3) mg/dL C-Reactive Protein 232 H (Less than 10) mg/L 03/25/18 Range/Units 14:58 WBC (4.3-11.1) K/mcL RBC (3.82-4.97) M/mcL Hgb (11.5-15.4) g/dL Hct (35.3-44.9) % MCV (83.0-100.0) fL MCH (28.0-33.3) pg MCHC (31.6-35.5) g/dL RDW (11.5-14.5) % Plt Count (140-400) K/mcL MPV (9.4-12.4) fL Immature Gran % (0-4) % Seg Neutrophils % % Lymphocytes % % Monocytes % % Eosinophils % % Basophils % % Neutrophils # (1.6-8.9) K/mcL Lymphocytes # (0.6-4.6) K/mcL Monocytes # (0.0-1.3) K/mcL Eosinophils # (0.0-0.6) K/mcL Basophils # (0.0-0.2) K/mcL Platelet Estimate (Normal) Sodium (136-145) mEq/L Potassium (3.5-5.1) mEq/L Chloride (98-107) mEq/L Carbon Dioxide (23-29) mEq/L BUN (8-23) mg/dL Creatinine (0.60-1.20) mg/dL Est GFR ( Amer) (> 60) Est GFR (Non-Af Amer) (> 60) BUN/Creatinine Ratio (6-26) Glucose (70-105) mg/dL Calculated Osmolality (280-300) Lactic Acid 0.8 (0.5-2.2) mmol/L Calcium (8.6-10.3) mg/dL C-Reactive Protein (Less than 10) mg/L - Radiology Data Radiology results reviewed: Yes I reviewed the patient's radiology results. Lower Extremity CT 03/25/18 14:36 IMPRESSION: 1. Extensive subcutaneous gas throughout the forefoot and extending into the midfoot and proximally to the level of the ankle. There is also diffuse subcutaneous edema. No organized drainable fluid collection identified. Findings most suggestive of underlying gas-forming infectious process. 2. No CT evidence for osteomyelitis. 3. Intra-articular fracture through the proximal phalanx of the 1st digit. 4. Osteopenia. D/ / Martin Mariscal MD / Martin Mariscal MD Interpreting Provider: Martin Mariscal MD - EKG Data EKG attestation: Yes I reviewed and interpreted this EKG. EKG results narrative: EKG demonstrates atrial fibrillation with left bundle branch block with rate of 96 bpm. Left axis deviation. Prolonged QRS duration 142. Poor R wave progression. No gross ST elevations or depressions. No acute ischemic findings. No significant changes from previous EKG dated 02/23/17. S.B.A.Adore. - Justice.Emiliano Situation: Demographics, MOA Background: Presenting Complaint, Relevant PMH, Meds, & Allergies Assessment: Course and respsone to treatment, Exam Concerns, Patient/Family Expectation, Pertinant Lab Results Recommendation: Barrier(s) to disposition, Recommendation based on pending studies, treatments, or consults S.B.AJuan Jose Report Given to: Dr. Maricruz Gamino Repor Time: 16:50
[2018-03-25 15:30] LABS: Calcium 9.2 mg/dL (8.6-10.3); Platelet Estimate Increased (Normal); Potassium 4.1 mEq/L (3.5-5.1)
[2018-03-25] MEDS ORDERED: Clindamycin 900 MG/50 ML 900 MG/50 ML IV.SOLN IVPB ONE ×2 (16:33→21:00)
--- NOTE | 2018-03-25 17:17 | Podiatry Consult Note ---
Date of Encounter: 03/25/18 Time of Encounter: 16:25 Assessment and Plan (1) Gas gangrene Current visit: Yes Status: Acute Extensive gas gangrene left foot extending proximally I had a thorough review with the patient and her regarding her condition , my findings, and recommendations for treatment. We discussed her CT scan and the extensive infection present in the foot. We discussed that she is high risk for losing her leg with this severe infection. We discussed surgical intervention consisting of an incision and drainage, removal of all nonviable tissue and partial amputation of the left foot in an effort to try to save her left leg. I did tell the patient and her and may not be possible to salvage the limb despite having surgery with the extensive infection present. I also told them that this will likely be a staged procedure and she is going to require more surgery in the future. She will also have a wound to heal. We also discussed importance of glycemic control. No guarantees were made as to the outcome of any procedure. Risks versus benefits potential complications consequences of surgery and her condition discussed at length including but not limited to infection, bleeding swelling numbness tingling nerve damage pain heart attack blood clot loss of functionality requirement to wear her brace liver damage kidney damage need for dialysis need for further surgery etc. All of their questions were answered and the informed consent was signed. Patient being emergently brought to the operating room. 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 Kaplan is a 78 year old diabetic female who says a few days ago she noticed something wrong with her left foot. She says it was swollen and did not feel right. She says her diabetes is not well controlled and does not know her A1c. Her with her bedside says he saw it today and made her come to the hospital. She says she thinks her dog was near her foot and thinks the infection may have been caused by that. She cannot get down to check her feet everyday and her has poor vision and also cannot check her feet for her. She did report feeling dizzy and home and nauseous. She denies vomiting, chest pain and shortness of breath. Podiatry was consulted by the ER for evaluation and surgical intervention. 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, Psychiatric history: no psych history - Past Surgical History Surgical History: appendectomy, coronary bypass (CABG), orthopedic, other, splenectomy Additional surgical history: broke left foot (screws in left foot) - Social History Smoking Status: Never smoker Smokeless Tobacco Status: No Alcohol use: none Drug use: none - Family History Mother Living Status: Hx Family Cardiac Disorders: No Hx Family Respiratory Disorders: No Hx Family Cancer: Yes (Uterine Cancer) Hx Family GI Disorders: No Hx Family Endocrine Disorder: No Hx Family Neuromuscular Disorders: No Hx Family Neurologic Disorders: No Hx Family HEENT Disorders: No Hx Family Autoimmune Disorders: No Father Living Status: Hx Family Cancer: Yes Medications and Allergies Dorzolamide/Timolol [Cosopt] 1 drop OP BID 02/23/17 [History] Insulin NPH Hum/Reg Insulin Hm [Humulin 70-30 Vial] 10 unit SQ BID 02/23/17 [ History] Pioglitazone HCl 30 mg PO DAILY 02/23/17 [History] Simvastatin [Zocor] 40 mg PO HS 02/23/17 [History] glipiZIDE [Glipizide] 10 mg PO BID 02/23/17 [History] Ergocalciferol (VITAMIN D2) [Vitamin D2] 50,000 unit PO QWEEK 03/25/18 [History] amLODIPine [Norvasc] 5 mg PO DAILY 03/25/18 [History] 3 Allergy/AdvReac Type Severity Reaction Status Date / Time lidocaine Allergy See Verified 02/23/17 16:30 Comments All Systems Reviewed: The remainder of the systems were reviewed and are negative - Constitutional Constitutional: other (nausea) - Cardiovascular Cardiovascular: edema, pedal edema, no chest pain, no dyspnea - Respiratory Respiratory: no cough, no dyspnea - Musculoskeletal Musculoskeletal: numbness Physical Exam - Constitutional Vitals: Temp Pulse Resp BP Pulse Ox 97.7 F 97 20 118/60 98 03/25/18 14:29 03/25/18 16:37 03/25/18 16:37 03/25/18 16:37 03/25/18 16:37 General appearance: cooperative, no acute distress, obese - Respiratory Additional comments: nonlabored respirations - Ankle & Foot Exam: Well developed obese female in no acute distress Vascular: Capillary refill time less than 3 seconds to all digits of the left foot. Feet are warm to touch. There is moderate to severe edema of the forefoot. Dermatology: Gangrene and crepitus medial foot as well as the plantar vault of the foot extending proximally to the midfoot. Purulent drainage evident medially and plantarly. Erythema of the left foot extending to the ankle. There is animal hair on the plantar wound left foot wound. Musculoskeletal: No pain with palpation gangrenous site sore areas of abscess. No pain with range of motion of the ankle joint. Neurology: Absent sensation to touch. CT-extensive soft tissue gas plantar dorsal aspect of the foot extending from the forefoot to the ankle. Soft tissue gas is tracking up the medial foot and dorsolateral foot towards the ankle. previous midfoot surgery. Results - Labs Result Diagrams: 03/25/18 14:58 03/25/18 14:58 Labs: Abnormal lab results WBC 26.6 K/mcL (4.3-11.1) H 03/25/18 14:58 RBC 3.74 M/mcL (3.82-4.97) L 03/25/18 14:58 Hgb 10.7 g/dL (11.5-15.4) L 03/25/18 14:58 Hct 31.6 % (35.3-44.9) L 03/25/18 14:58 MPV 13.1 fL (9.4-12.4) H 03/25/18 14:58 Neutrophils # 22.7 K/mcL (1.6-8.9) H 03/25/18 14:58 Monocytes # 1.7 K/mcL (0.0-1.3) H 03/25/18 14:58 Platelet Estimate Increased (Normal) H 03/25/18 14:58 Sodium 131 mEq/L (136-145) L 03/25/18 14:58 Carbon Dioxide 21 mEq/L (23-29) L 03/25/18 14:58 BUN 85 mg/dL (8-23) H 03/25/18 14:58 Creatinine 2.20 mg/dL (0.60-1.20) H 03/25/18 14:58 Est GFR ( Amer) 26 (> 60) L 03/25/18 14:58 Est GFR (Non-Af Amer) 21 (> 60) L 03/25/18 14:58 BUN/Creatinine Ratio 39 (6-26) H 03/25/18 14:58 Glucose 325 mg/dL (70-105) H 03/25/18 14:58 Calculated Osmolality 310 (280-300) H 03/25/18 14:58 Creatine Kinase 25 Units/L (30-223) L 03/25/18 14:58 C-Reactive Protein 232 mg/L (Less than 10) H 03/25/18 14:58 H & H 03/25/18 Range/Units 14:58 Hgb 10.7 L (11.5-15.4) g/dL Hct 31.6 L (35.3-44.9) % All other labs normal. Consult Discharge Plan - Plan
[2018-03-25] MEDS ORDERED: Naloxone 0.4 MG/ML INJ IVP PRN ×2 (17:40→21:00)
[2018-03-25] MEDS ORDERED: Acetaminophen 325 MG TABLET PO PRN (17:40)
[2018-03-25] MEDS ORDERED: Vancomycin 1,000 MG VIAL ONE (17:40)
[2018-03-25] MEDS ORDERED: D5% in Water 1,000 ML IVC PRN ×2 (17:43→21:00)
[2018-03-25] MEDS ORDERED: Dextrose Gel 15 GM/37.5 ML TUBE PO PRN ×4 (17:43→21:00)
[2018-03-25] MEDS ORDERED: *HR* Dextrose 50 % in Water (Syg) 50 ML SYRINGE IVP PRN ×2 (17:43→21:00)
[2018-03-25] MEDS ORDERED: 0.9 % Sodium Chloride 1,000 ML IVC SCH (17:45)
[2018-03-25] MEDS ORDERED: *HR* Metoprolol 5 MG/5 ML VIAL IVP PRN ×2 (17:47→21:00)
--- NOTE | 2018-03-25 17:50 | Anesthesia Evaluation PreOp ---
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) Other Medical History: Renal (CKD), Diabetes Type II, Other (Obese) Anesthesia History: No Prior Anesthetic Complications Alcohol Use: none Drug use: none Medications and Allergies Dorzolamide/Timolol [Cosopt] 1 drop OP BID 02/23/17 [History] Insulin NPH Hum/Reg Insulin Hm [Humulin 70-30 Vial] 10 unit SQ BID 02/23/17 [ History] Pioglitazone HCl 30 mg PO DAILY 02/23/17 [History] Simvastatin [Zocor] 40 mg PO HS 02/23/17 [History] glipiZIDE [Glipizide] 10 mg PO BID 02/23/17 [History] Ergocalciferol (VITAMIN D2) [Vitamin D2] 50,000 unit PO QWEEK 03/25/18 [History] amLODIPine [Norvasc] 5 mg PO DAILY 03/25/18 [History] 3 Allergy/AdvReac Type Severity Reaction Status Date / Time lidocaine Allergy See Verified 02/23/17 16:30 Comments - Meds/Allergy Pre-op Review Medications Reviewed: Yes Allergies Reviewed: Yes Beta Blockers on Current Med List: Yes (on Atenolol) Anesthesia Results - Labs 03/25/18 14:58 03/25/18 14:58 - Imaging EKG: report reviewed (SR First Degree AV Block) Anesthesia Exam O2 Sat Height 1.63 m Weight 88.904 kg O2 Sat by Pulse Oximetry 98 O2 Sat by Pulse Oximetry 99 Vital Signs Temp Pulse Resp BP Pulse Ox 97.7 F 79 18 102/61 99 03/25/18 14:29 03/25/18 14:29 03/25/18 14:29 03/25/18 14:29 03/25/18 14:29 Height: 5'4 Weight: 196 lbs NPO (# of Hours): 0800 today Pain Scale: 0 - HEENT Pupil (Motor): Pupils equal, EOMI Mallampati: II Teeth: Poor dentition Oral Opening: Greater than 3 - WAITER/WAITRESS CAPTAIN LOC: Oriented WAITER/WAITRESS CAPTAIN Motor: Normal RUE, Normal LUE, Normal RLE, Normal LLE, Normal Face WAITER/WAITRESS CAPTAIN Sensory: Normal: RUE, LUE, Face, Deficit: RLE (paresthesia), LLE ( paresthesia) - Cardiac Rhythm: Regular Murmur: None JVD: No Carotid Bruit: No - Pulmonary Breath Sounds: bilateral Clear Respiratory Effort: Symmetrical Anesthesia Assess/Plan ASA Score: 3 (CAD HTN DM CKD) Modified [place] Scale for Level of Consciousness: Cooperative, oriented, and tranquil Anesthetic Plan: MAC Monitoring Plan: Standard Monitors Recovery Plan: Other (Discussed MAC, possible GA, agrees to proceed)
[2018-03-25] MEDS ORDERED: Famotidine 20 MG/2 ML VIAL ONE (17:53)
--- NOTE | 2018-03-25 17:53 | Internal Med History&Physical ---
Date of Encounter: 03/25/18 Time of Encounter: 17:00 Internal Medicine - H&P: HPI Chief complaint: left foot infection Admitted From: Home Plans for Post Hospital Care: Home History of present illness: Ms. Kaplan is a 78 year old female with long time DM present to ER for right foot infection. PMH is significant for DM, CKD, CAD s/p CABG, s/p splenectomy since childhood. Pt has severe DM neuropathy and has lost sensation on both feet. Not sure how long the wound be there but the thought about two weeks. Pt has lower fever several days ago with whole body weak. With dizziness and mild nausea. Today they found the big wound on left foot with skin color change. Pt report to ER physicians that her dog licked her foot but her and she told me that the dog is from her daughter and run away from her house about 1 month ago. In ER, CT legs shows necrotic tissue with gas. Pt's wound does has foul smell. 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, Psychiatric history: no psych history - Past Surgical History Surgical History: appendectomy, coronary bypass (CABG), orthopedic, other, splenectomy Additional surgical history: broke left foot (screws in left foot) - Social History Smoking Status: Never smoker Smokeless Tobacco Status: No Alcohol use: none Drug use: none - Family History Mother Living Status: Hx Family Cardiac Disorders: No Hx Family Respiratory Disorders: No Hx Family Cancer: Yes (Uterine Cancer) Hx Family GI Disorders: No Hx Family Endocrine Disorder: No Hx Family Neuromuscular Disorders: No Hx Family Neurologic Disorders: No Hx Family HEENT Disorders: No Hx Family Autoimmune Disorders: No Father Living Status: Hx Family Cancer: Yes Internal Medicine - H&P: Meds Dorzolamide/Timolol [Cosopt] 1 drop OP BID 02/23/17 [History] Insulin NPH Hum/Reg Insulin Hm [Humulin 70-30 Vial] 10 unit SQ BID 02/23/17 [ History] Pioglitazone HCl 30 mg PO DAILY 02/23/17 [History] Simvastatin [Zocor] 40 mg PO HS 02/23/17 [History] glipiZIDE [Glipizide] 10 mg PO BID 02/23/17 [History] Ergocalciferol (VITAMIN D2) [Vitamin D2] 50,000 unit PO QWEEK 03/25/18 [History] amLODIPine [Norvasc] 5 mg PO DAILY 03/25/18 [History] 3 Allergy/AdvReac Type Severity Reaction Status Date / Time lidocaine Allergy See Verified 02/23/17 16:30 Comments All Systems PM: A 10-system review of systems was performed and is negative for pertinent findings except as documented above in the HPI. - Constitutional Vitals: Temp Pulse Resp BP Pulse Ox 97.7 F 97 20 118/60 98 03/25/18 14:29 03/25/18 16:37 03/25/18 16:37 03/25/18 16:37 03/25/18 16:37 General appearance: Present: A&O X 3, no acute distress, answers questions appropriately Exam: in NAD - Head Head exam: Present: atraumatic, normocephalic - Eye Eye exam: Present: PERRL, conjuntiva pink, sclera anicteric Additional comments: Pt has left eye blinded - Neck Neck exam general surgery: Present: supple, trachea midline. Absent: lymphadenopathy - Respiratory Respiratory exam: Present: CTAB. Absent: accessory muscle use, rales, rhonchi, wheezes - Cardiovascular Cardiovascular exam: Present: irregular rhythm, +S1, +S2. Absent: diastolic murmur, gallop, rubs, systolic murmur - GI/Abdominal GI/Abdominal exam: Present: normal bowel sounds, soft, no peritoneal signs. Absent: distended, tenderness - Extremities Exam Extremities exam: Present: warm, radial pulses palpable and symmetrical. Absent : calf tenderness, cyanotic, pedal edema Additional comments: Left foot large wound with black skin, with foul smell discharge. - Neurological Exam Neurological exam: Present: CN II-XII intact, motor sensory deficit (B/L feet sensation decreased), oriented X3, no focal deficits. Absent: pronater drift, facial droop, speech deficit - Skin Skin exam: Present: dry, intact Internal Med - H&P Results - Labs CBC & Chem 7: 03/25/18 14:58 03/25/18 14:58 - Assessment and plan (1) CAD (coronary artery disease) Current Visit: Yes Status: Acute Assessment and plan: No chest pain. Cont home meds when diet resumed. Qualifiers: Coronary Disease-Associated Artery/Lesion type: bypass graft [place] vs. transplanted heart: [place] heart Associated angina: without angina Qualified Code(s): I25.810 - Atherosclerosis of coronary artery bypass graft(s) without angina pectoris (2) A-fib Current Visit: Yes Status: Acute Assessment and plan: Incidentally found in ER. Pt denies hx of A Fib. HR 90s. Denies palpitation/SOB. - Not sure how long pt has A Fib - Place metoprolol 2.5 mg iv q6h PRN for tachycardia as pt is NPO and plan for emergent surgery. - TSH, Mg, Echo, and cardio consult. Qualifiers: Atrial fibrillation type: chronic Qualified Code(s): I48.2 - Chronic atrial fibrillation (3) Diabetes mellitus with foot ulcer Current Visit: Yes Status: Acute Assessment and plan: Severe gas gangrene. Not meet criteria for sepsis. Lactate 0.8 - Cont iv Vanco, zosyn, and Clindamycin - Podiatry consult saw pt, plan for surgical amputation. - Cont closely monitor pt - Consider ID consult on Tuesday as pt has hx of splenectomy and dog licking. 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 (5) Leukocytosis Current Visit: Yes Status: Acute Assessment and plan: Due to foot infection, management as above. Qualifiers: Leukocytosis type: other Qualified Code(s): D72.828 - Other elevated white blood cell count (6) DVT prophylaxis Current Visit: No Status: Acute Assessment and plan: Will start AC after surgery, at this point hold AC for surgery. Hold mechanical device as pt has severe neuropathy and left foot gas gangrene. (7) Diabetes Current Visit: No Status: Acute Assessment and plan: Place pt on sliding scale insulin. Closely monitor Glu. IVF as pt is NPO now. Qualifiers: Diabetes mellitus type: type 2 Diabetes mellitus shelter insulin use: with shelter use Diabetes mellitus complication status: with kidney complications Diabetes mellitus complication detail: with chronic kidney disease Chronic kidney disease stage: stage 5, not on chronic dialysis Qualified Code(s): E11.22 - Type 2 diabetes mellitus with diabetic chronic kidney disease; N18.5 - Chronic kidney disease, stage 5; Z79.4 - halfway ( current) use of insulin (8) CKD (chronic kidney disease) stage 5, GFR less than 15 ml/min Current Visit: No Status: Chronic Assessment and plan: Cr is about at her baseline. - Time Spent With Patient Total time spent is greater than 50% in coordination of care (as documented) at patient's floor/unit and/or counseling patient: 40 min Greater than 35 minutes
[2018-03-25] MEDS ORDERED: Acetaminophen IV 1,000 MG/100 ML INFUS..BTL ONE (17:54)
[2018-03-25] MEDS ORDERED: *HR* FentaNYL (PF) 100 MCG/2 ML VIAL ONE (17:58)
[2018-03-25] MEDS ORDERED: Ondansetron 4 MG/2 ML VIAL ONE (18:00)
[2018-03-25] MEDS ORDERED: Insulin LISPRO 300 UNITS/3 ML VIAL SQ SCH (18:00)
[2018-03-25] MEDS ORDERED: Propofol 500 MG/50 ML INFUS..BTL ONE (18:00)
[2018-03-25] MEDS ORDERED: Lidocaine -MPF 2% 2 ML VIAL ONE (18:00)
[2018-03-25] MEDS ORDERED: *HR* PHENYLEPHRINE 1,000 MCG/10 ML SYRINGE IVP ONE (19:19)
[2018-03-25] MEDS ORDERED: *HR* OxyCODONE Immed Rel 5 MG TABLET PO PRN (20:13)
--- NOTE | 2018-03-25 20:23 | Operative Note ---
Date of procedure: 03/25/18 Pre-op diagnosis: gas gangrene, abscess left foot Post-op diagnosis: same Procedure: left lisfranc amputation left foot/ankle incision and drainage Implants: none Complications: none Anesthesia: MAC, IV sedation Surgeon: Agus Ayers Was there an assistant construction superintendent present: No Estimated blood loss (cc): 250 Specimen: path-left foot, left foot clear margin culture-soft tissue left foot Condition: stable Disposition: PACU Procedure in Detail: Indications: A 78-year-old uncontrolled diabetic female with severe and extensive gas gangrene infection in the left foot being brought to the operating room emergently for incision and drainage and partial left foot amputation. CT scan had been done in the emergency room. The nature of the procedures, risks versus benefits potential complications consequences of her condition and surgery were discussed at length. It was explained to them that she is high risk for limb loss and may lose her leg or could due to the infection even with having surgery. It was explained to them that this could be a staged procedure and she will likely require more surgery. No guarantees were made as to the outcome of any procedure. The patient was placed on operating room table in the supine position. A left high calf tourniquet was applied but was not inflated during the entire procedure. The left foot was scrubbed prepped and draped in the usual sterile fashion and the following procedures began Left foot/ankle incision and drainage. Attention was directed to the patient's left foot and a #10 blade was used to make an incision full-thickness in the medial arch proximally to the ankle. The incision was also extended plantarly on the foot. Copious amounts of purulent drainage was flowing from the foot and all of the tissue plantarly was completely devitalized. An incision was made trasversely across the top of the foot and purulent drainage was also present and was coming through all interspaces surrounding all of the metatarsals The purulent drainage which tracked proximally along the medial foot to the level of the ankle. The flexor tendons in the medial foot appeared devitalized and along the medial foot were cut as far proximally as the ankle as was the tibialis anterior which was devitalized. No purulent drainage was noted past the ankle level. A full thickness incision was also made along the dorsal lateral foot following the extensor tendons and there was some purulent drainage. The extensor tendons were excised. Soft tissue from the medial and plantar foot excised was sent to microbiology. With the extensive non-viable tissue present and the significant purulence present. The decision was made to proceed with partial left foot amputation to try to salvage the limb. Left lisfranc amputation. The elevator was used to free the soft tissue from the dorsal aspect of the midfoot. Patient had had previous surgery and hardware was in place. This hardware was removed. With the hardware removed, the sagittal saw was used to resect bone to a level where the surrounding soft tissue did not appear devitalized and there was no purulent drainage. The left foot was amputated through the [place] Lisfranc joints which had to be cut through with the previous fusion done years ago and sent to pathology. A clear margin of bone was taken and sent to pathology. The pulse lavage with vancomycin was utilized to irrigate the area. All tendinous structures in the area were traced as far proximally as possible and cut. There was no purulence , devitalized soft tissue or bone in this area and there was bleeding tissue. All bleeders were identified and tied off using Vicryl ties or the Bovie as deemed appropriate. There was adequate hemostasis. The plantar medial aspect of the foot which contained a significant amount of purulent drainage was packed open. The remaining areas of the foot were adequate for closure and it was performed using 0-Prolene. Post-operative bandaging included 4 x 4 gauze Adaptic Kerlix and a loosely applied [place] wrap. Patient to remain nonweightbearing to the left lower extremity. Patient admitted and will go to the floor where she will continue to receive IV antibiotics.
[2018-03-25] MEDS: 0.9 % Sodium Chloride 1,000 ML IVC SCH (23:16)
[2018-03-25] MEDS: Insulin LISPRO 300 UNITS/3 ML VIAL SQ SCH (23:51)
[2018-03-26] MEDS ORDERED: Clindamycin 600 MG/50 ML 600 MG/50 ML IV.SOLN IVPB SCH
[2018-03-26] MEDS ORDERED: Piperacillin/Tazobactam 3.375 GM in 0.9 % Sodium Chloride Mini Bag 100 ML IVPB SCH (06:00)
[2018-03-26] MEDS: Piperacillin/Tazobactam 3.375 GM in 0.9 % Sodium Chloride Mini Bag 100 ML IVPB SCH ×2 (06:48→17:55)
[2018-03-26] MEDS: Insulin LISPRO 300 UNITS/3 ML VIAL SQ SCH ×4 (06:59→21:13)
[2018-03-26 07:22] LABS: Basophils % 0.2 %; Eosinophils # 0.6 K/mcL (0.0-0.6); Eosinophils % 3.2 %; Hematocrit 26.4 % (35.3-44.9); Immature Granulocytes % 1.3 % (0-4); Lymphocytes # 1.9 K/mcL (0.6-4.6); Mean Corpuscular HGB Conc 33.3 g/dL (31.6-35.5); Mean Corpuscular Hemoglobin 28.3 pg (28.0-33.3); Mean Corpuscular Volume 84.9 fL (83.0-100.0); Mean Platelet Volume 12.8 fL (9.4-12.4); Monocytes # 1.2 K/mcL (0.0-1.3); Monocytes % 6.7 %; Neutrophils # 13.5 K/mcL (1.6-8.9); Platelet Count 327 K/mcL (140-400); Red Blood Count 3.11 M/mcL (3.82-4.97); Red Cell Distribution Width 14.6 % (11.5-14.5); Segmented Neutrophils % 77.6 %
[2018-03-26 07:25] LABS: Hemoglobin 8.8 g/dL (11.5-15.4)
[2018-03-26 07:45] LABS: Calcium 8.5 mg/dL (8.6-10.3); Magnesium 1.8 mg/dL (1.6-2.6)
[2018-03-26] MEDS: Clindamycin 600 MG/50 ML 600 MG/50 ML IV.SOLN IVPB SCH ×3 (08:14→23:17)
[2018-03-26 10:13] LABS: Enterococcus by PCR Not Detected (Not Detect); mecA Methicillin-Resist Gene Not Detected (Not Detect)
[2018-03-26 10:14] LABS: Acinetobacter baumannii by PCR Not Detected (Not Detect); Candida albicans by PCR Not Detected (Not Detect); Candida glabrata by PCR Not Detected (Not Detect); Candida krusei by PCR Not Detected (Not Detect); Candida parapsilosis by PCR Not Detected (Not Detect); Candida tropicalis by PCR Not Detected (Not Detect); Enterobacter cloacae Cmplx PCR Not Detected (Not Detect); Enterobacteriaceae by PCR Not Detected (Not Detect); Escherichia coli by PCR Not Detected (Not Detect); Klebsiella oxytoca by PCR Not Detected (Not Detect); Klebsiella pneumoniae by PCR Not Detected (Not Detect); Proteus by PCR Not Detected (Not Detect); Pseudomonas aeruginosa by PCR Not Detected (Not Detect); Serratia marcescens by PCR Not Detected (Not Detect); Staphylococcus aureus by PCR DETECTED (Not Detect); Staphylococcus by PCR DETECTED (Not Detect); Streptococcus agalactiae(B)PCR Not Detected (Not Detect); Streptococcus by PCR Not Detected (Not Detect); Streptococcus pneumoniae PCR Not Detected (Not Detect); Streptococcus pyogenes (A) PCR Not Detected (Not Detect)
--- NOTE | 2018-03-26 10:32 | Podiatry Progress Note ---
Date of Encounter: 03/26/18 Time of Encounter: 09:45 - Assessment and Plan (1) Gas gangrene Current Visit: Yes Status: Acute reviewed surgical procedure and current condition. ordered GAEL/PVR, TCPO2. patient will likely require further washout and debridemen and the was discussed with the patient. amputation site is stable for now, no purulence. non -weight bearing left lower extremity. get ID consult Tuesday. Will continue to follow. (2) Diabetes mellitus with foot ulcer Current Visit: Yes Status: Acute Qualifiers: Diabetes mellitus type: type 2 Diabetes mellitus fpc insulin use: with terminal operator use Qualified Code(s): E11.621 - Type 2 diabetes mellitus with foot ulcer; L97.509 - Non-pressure chronic ulcer of other part of unspecified foot with unspecified severity; Z79.4 - MCC (current) use of insulin Subjective Interval history: s/p incision and drainage and partial left foot ampuation. sitting up in bed eating breakfast. pain controlled. says she has not tried to get out of bed. Objective - Vital Signs Vital Signs: Vital Signs Temp Pulse Resp BP Pulse Ox 03/26/18 06:57 97.5 F L 94 16 94/52 97 03/26/18 04:02 98.2 F 83 17 97/59 98 03/25/18 23:30 97.7 F 82 16 106/68 98 03/25/18 23:23 97.5 F L 87 17 106/68 100 03/25/18 22:30 97.6 F 82 16 98/74 98 03/25/18 21:28 97.6 F 68 16 98/60 98 03/25/18 21:00 97.5 F L 82 16 98/70 99 03/25/18 20:30 76 16 96/60 Intake and Output 03/25/18 03/26/18 03/26/18 23:59 07:59 15:59 Intake Total 0 / 20 Output Total 550 / 550 200 / 200 Balance -550 / -530 -200 / -200 Intake: Oral 0 / 0 Output: Urine 300 / 300 200 / 200 Estimated Blood Loss 250 / 250 Other: Blood Glucose* 267 99 - Exam Exam: no purulence expressed. no active bleeding. currently no necrosis of skin. faint erythema. no fluctuance. plantar medial aspect of amputation site open. foot is warm to touch. - Lab Result Diagrams: 03/26/18 07:00 03/26/18 07:00 Labs: Abnormal lab results WBC 17.4 K/mcL (4.3-11.1) H 03/26/18 07:00 RBC 3.11 M/mcL (3.82-4.97) L 03/26/18 07:00 Hgb 8.8 g/dL (11.5-15.4) L D 03/26/18 07:00 Hct 26.4 % (35.3-44.9) L 03/26/18 07:00 RDW 14.6 % (11.5-14.5) H 03/26/18 07:00 MPV 12.8 fL (9.4-12.4) H 03/26/18 07:00 Neutrophils # 13.5 K/mcL (1.6-8.9) H 03/26/18 07:00 Platelet Estimate Increased (Normal) H 03/25/18 14:58 ESR >= 130 mm/hr (0-15) H 03/25/18 14:58 Chloride 109 mEq/L (98-107) H 03/26/18 07:00 Carbon Dioxide 19 mEq/L (23-29) L 03/26/18 07:00 BUN 76 mg/dL (8-23) H 03/26/18 07:00 Creatinine 1.87 mg/dL (0.60-1.20) H 03/26/18 07:00 Est GFR ( Amer) 31 (> 60) L 03/26/18 07:00 Est GFR (Non-Af Amer) 26 (> 60) L 03/26/18 07:00 BUN/Creatinine Ratio 41 (6-26) H 03/26/18 07:00 Glucose 106 mg/dL (70-105) H 03/26/18 07:00 Calculated Osmolality 305 (280-300) H 03/26/18 07:00 Calcium 8.5 mg/dL (8.6-10.3) L 03/26/18 07:00 Creatine Kinase 25 Units/L (30-223) L 03/25/18 14:58 C-Reactive Protein 232 mg/L (Less than 10) H 03/25/18 14:58 Staphylococcus sp PCR DETECTED (Not Detect) A 10/13/18 15:06 Staph aureus (PCR) DETECTED (Not Detect) A 03/25/18 15:06 Microbiology, Last 48 Hours 03/25/18 18:56 Gram Stain - Final Left Foot Consult Discharge Plan - Plan Referrals: Isabelle Joseph CNP [Primary Care Provider] -
[2018-03-26] MEDS: Lactobacillus 1 EACH CAP.SPRINK PO SCH (10:34)
[2018-03-26] MEDS: *HR* OxyCODONE Immed Rel 5 MG TABLET PO PRN (10:34)
--- NOTE | 2018-03-26 11:59 | Internal Med Progress Note ---
Hospitalist Progress Note - Encounter Date of Encounter: 03/26/18 Time of Encounter: 09:00 - Subjective Interval History: Pt had amputation and I/D by podiatry yesterday. C/O minimal pain. Denies fever/ nausea/SOB - Exam Vitals: Temp Pulse Resp BP Pulse Ox 97.4 F L 79 20 94/51 98 03/26/18 11:42 03/26/18 11:42 03/26/18 11:42 03/26/18 11:42 03/26/18 11:42 Exam: Pt is AAO x 3, in NAD HEENT: NC/AT, left eye blinded Neck: Supple, no JVD Lungs: CTA b/l Heart: Irregularly irregular rhythm, S1S2 Abd: Soft, NT Ext: Left foot s/p surgery, well dressed. Neuro: Both feet decreased sensation. - Assessment and Plan (1) CAD (coronary artery disease) Current Visit: Yes Status: Acute Assessment and Plan: No chest pain. Cont home meds. (2) A-fib Current Visit: Yes Status: Acute Assessment and Plan: Incidentally found in ER. Pt denies hx of A Fib. HR 90s. Denies palpitation/SOB. - Not sure how long pt has A Fib - HR is well controlled. BP is at lower side, hold BB or cardizem. - TSH, Mg, Echo, and cardio consult. (3) Diabetes mellitus with foot ulcer Current Visit: Yes Status: Acute Assessment and Plan: Severe gas gangrene. Not meet criteria for sepsis. Lactate 0.8 - S/P amputation, I/D. - Cont iv Vanco, zosyn, and Clindamycin - Cont closely monitor pt - Consider ID consult on Tuesday as pt has hx of splenectomy and dog licking and bacteremia. - F/U wound culture result. (4) Gas gangrene Current Visit: Yes Status: Acute Assessment and Plan: Management as above. (5) Leukocytosis Current Visit: Yes Status: Acute Assessment and Plan: Due to foot infection, management as above. Decreased after surgery and abx use. (6) DVT prophylaxis Current Visit: No Status: Acute Assessment and Plan: Heparin SC (7) Diabetes Current Visit: No Status: Acute Assessment and Plan: Place pt on sliding scale insulin. Closely monitor Glu. (8) CKD (chronic kidney disease) stage 5, GFR less than 15 ml/min Current Visit: No Status: Chronic Assessment and Plan: Cr is about at her baseline. (9) Bacteremia Current Visit: Yes Status: Acute Assessment and Plan: 1/2 Blood culture positive for GPC. - Final culture report pending. - Cont broad spectrum abx now. - ID consult. DVT Prophylaxis: Heparin SC - Time Spent with Patient Total time spent is greater than 50% in coordination of care (as documented) at patient's floor/unit and/or counseling patient: 40 min Greater than 35 minutes Plan of Care Discussed with: patient Internal Medicine: Result - Labs CBC & Chem 7: 03/26/18 07:00 03/26/18 07:00 Labs: Short CBC 03/26/18 Range/Units 07:00 WBC 17.4 H (4.3-11.1) K/mcL Hgb 8.8 L D (11.5-15.4) g/dL Hct 26.4 L (35.3-44.9) % Plt Count 327 (140-400) K/mcL Neutrophils # 13.5 H (1.6-8.9) K/mcL BMP 03/26/18 07:00 Sodium 136 Potassium 4.0 Chloride 109 H Carbon Dioxide 19 L BUN 76 H Creatinine 1.87 H Glucose 106 H Calcium 8.5 L - Impressions Impressions Foot X-Ray 03/25/18 20:32 IMPRESSION: Interval midfoot amputation without complication identified. D/ / Hardeep Blake MD / Hardeep Blake MD Interpreting Provider: Hardeep Blake MD Consult Discharge Plan - Plan Referrals: Isabelle Joseph, VIDEO CONTROL OPERATOR [Primary Care Provider] - (1) CAD (coronary artery disease) Qualifiers: Coronary Disease-Associated Artery/Lesion type: bypass graft [place] vs. 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: with garment parts cutter machine use Qualified Code(s): E11.621 - Type 2 diabetes mellitus with foot ulcer; L97.509 - Non-pressure chronic ulcer of other part of unspecified foot with unspecified severity; Z79.4 - half-way (current) use of insulin (5) Leukocytosis Qualifiers: Leukocytosis type: other Qualified Code(s): D72.828 - Other elevated white blood cell count (7) Diabetes Qualifiers: Diabetes mellitus type: type 2 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
[2018-03-26 12:28] LABS: Acinetobacter baumannii by PCR Not Detected (Not Detect); Candida albicans by PCR Not Detected (Not Detect); Candida glabrata by PCR Not Detected (Not Detect); Candida krusei by PCR Not Detected (Not Detect); Candida parapsilosis by PCR Not Detected (Not Detect); Candida tropicalis by PCR Not Detected (Not Detect); Enterobacter cloacae Cmplx PCR Not Detected (Not Detect); Enterobacteriaceae by PCR Not Detected (Not Detect); Enterococcus by PCR Not Detected (Not Detect); Escherichia coli by PCR Not Detected (Not Detect); Klebsiella oxytoca by PCR Not Detected (Not Detect); Klebsiella pneumoniae by PCR Not Detected (Not Detect); Proteus by PCR Not Detected (Not Detect); Pseudomonas aeruginosa by PCR Not Detected (Not Detect); Serratia marcescens by PCR Not Detected (Not Detect); Staphylococcus aureus by PCR Not Detected (Not Detect); Staphylococcus by PCR Not Detected (Not Detect); Streptococcus agalactiae(B)PCR Not Detected (Not Detect); Streptococcus by PCR DETECTED (Not Detect); Streptococcus pneumoniae PCR Not Detected (Not Detect); Streptococcus pyogenes (A) PCR Not Detected (Not Detect)
--- NOTE | 2018-03-26 12:40 | Cardiology Consult Note ---
Date of Encounter: 03/26/18 Time of Encounter: 12:00 Assessment and Plan (1) A-fib Current Visit: Yes Status: Acute New diagnosis of atrial fibrillation; chronicity unclear. Reports intermittent palpitations over the past several months. Admitted with necrotic wound on left foot; s/p partial amputations. Per podiatry , will need repeat debridement as inpatient. Recommend rate control strategy avg HR=84 overnight. Currently not on AV kathrin blocking agents, can add low dose BB if needed. Check TTE. CHA2Ds Vasc= 6 (CAD, age, female, DMII, HTN); recommend long-term AC. Given renal dysfunction, consider coumadin vs. Eliquis. Will start heparin gtt ( standard dose) for now given need for repeat debridement as inpatient. (Dr. Johnson discussed with Dr. Ayers). Will continue to follow. H/H drop overnight, likely d/t surgery (partial amputation) yesterday. Closely monitor H/H while on AC. Qualifiers: Atrial fibrillation type: persistent Qualified Code(s): I48.1 - Persistent atrial fibrillation (2) Gas gangrene Current Visit: Yes Status: Acute s/p partial left foot amputation. Podiatry following. Discussion w patient/family: The assessment and plan as outlined above was discussed with the patient and/or family members who expressed understanding and agreement. All questions were answered. Thank you for involving us in the care of your patient. Please call with any questions. The patient will be discussed and reviewed with Dr. Johnson; changes to be made accordingly. History of Present Illness Consult date: 03/26/18 Requesting physician: Orlin Aguilera Consult reason: Afib Chief complaint: left foot pain History of present illness: Ms. Kaplan is a 78 year old female with PMHx significant for CAD s/p CABG (2000) , DMII, and HTN who presented to the ED with complaints of left foot wound; she was found to have significant gas gangrene and underwent partial amputation of left foot on 03/25/18. Cardiology consulted today for incidental finding of atrial fibrillation. No recent CV testing noted. Patient/family deny recent ischemic evaluation. Has not followed with [employer] in many years. She reports occasional palpitation over the past 3-4 months; reports he has noticed decline in health over the past few month. Past Med Surg Social Fam HX - Past Medical History Attestation: Yes The following information was validated with the patient. Source: patient Medical history: coronary artery disease, diabetes, hypertension, renal disease Additional medical history: neuropathy in left foot, Psychiatric history: no psych history - Past Surgical History Surgical History: appendectomy, coronary bypass (CABG), orthopedic, other, splenectomy Additional surgical history: broke left foot (screws in left foot) - Social History Smoking Status: Never smoker Smokeless Tobacco Status: No Alcohol use: none Drug use: none - Family History Mother Living Status: Hx Family Cardiac Disorders: No Hx Family Respiratory Disorders: No Hx Family Cancer: Yes (Uterine Cancer) Hx Family GI Disorders: No Hx Family Endocrine Disorder: No Hx Family Neuromuscular Disorders: No Hx Family Neurologic Disorders: No Hx Family HEENT Disorders: No Hx Family Autoimmune Disorders: No Father History Unknown: Yes Adopted: No Living Status: Hx Family Cancer: Yes Medications and Allergies RX: Dorzolamide/Timolol [Cosopt] 1 drop OP BID 02/23/17 [History] RX: Insulin NPH Hum/Reg Insulin Hm [Humulin 70-30 Vial] 10 unit SQ BID 02/23/17 [History] RX: Pioglitazone HCl 30 mg PO DAILY 02/23/17 [History] RX: Simvastatin [Zocor] 40 mg PO HS 02/23/17 [History] RX: glipiZIDE [Glipizide] 10 mg PO BID 02/23/17 [History] Ergocalciferol (VITAMIN D2) [Vitamin D2] 50,000 unit PO QWEEK 03/25/18 [History] amLODIPine [Norvasc] 5 mg PO DAILY 03/25/18 [History] 3 Allergy/AdvReac Type Severity Reaction Status Date / Time lidocaine Allergy See Verified 02/23/17 16:30 Comments All Systems Review: The remainder of the systems were reviewed and are negative - Cardiovascular Cardiovascular: as per HPI Physical Examination Vital Signs, Last 4 Hours Temp Pulse Resp BP Pulse Ox 03/26/18 11:42 97.4 F L 79 20 94/51 98 03/26/18 10:30 78 107/64 General: Conversant, Other (pale) HEENT: Atraumatic, Normocephaly Cardiac: Other (irregularly irregular) Lungs: Normal Breath Sounds Neuro: Alert and responsive Abdomen: Soft Skin: No rashes noted on visualized skin Musculoskeletal: No Chest Wall Tenderness Extremities: Other (mild RLE edema; partial amputation left foot) Results 03/26/18 07:00 03/26/18 07:00 Lab Results 03/26/18 03/26/18 03/26/18 07:00 07:00 07:00 WBC 17.4 H Hgb 8.8 L D Hct 26.4 L Plt Count 327 Sodium 136 Potassium 4.0 Chloride 109 H Carbon Dioxide 19 L BUN 76 H Creatinine 1.87 H Glucose 106 H Calcium 8.5 L Magnesium 1.8 TSH 2.864 Active Medications Acetaminophen (Tylenol) 650 mg PO Q6H PRN PRN Reason: Mild Pain/Fever Stop: 09/24/18 21:01 Dextrose/Water (Dextrose 50% (Syg)) 25 ml IVP AD PRN PRN Reason: Hypoglycemia Stop: 09/24/18 17:44 Dorzolamide/Timolol (Cosopt) 1 drop RIGHT EYE BID [facility] Stop: 09/25/18 21:01 Glucagon (Glucagen) 1 mg IM ONCE PRN PRN Reason: Hypoglycemia Stop: 09/24/18 17:44 Glucose (Gluctose) 15 gm PO ONCE PRN PRN Reason: Hypoglycemia Stop: 09/24/18 17:44 Glucose (Gluctose) 30 gm PO ONCE PRN PRN Reason: Hypoglycemia Stop: 09/24/18 17:44 Heparin Sodium (Porcine) (Heparin) 5,000 unit SQ Q12HCO [facility] Stop: 09/25/18 18:01 Sodium Chloride (0.9 % Sodium Chloride) 1,000 mls @ 100 mls/hr IVC .Q10H THADDEUS Stop: 03/26/18 13:44 Last Admin: 03/25/18 23:16 Dose: 100 mls/hr Clindamycin Phosphate/Dextrose (Cleocin Premix 600 Mg/50 Ml) 600 mg in 50 mls @ 50 mls/hr IVPB Q8HR THADDEUS Stop: 09/25/18 08:01 Last Admin: 03/26/18 08:14 Dose: 50 mls/hr Dextrose (Dextrose 5%) 1,000 mls @ 100 mls/hr IVC .Q10H PRN PRN Reason: HYPOGLYCEMIA Stop: 09/24/18 17:44 Piperacillin Sod/Tazobactam (Sod 3.375 gm/ Sodium Chloride) 100 mls @ 25 mls/ hr IVPB Q12HR THADDEUS Stop: 09/25/18 06:01 Last Admin: 03/26/18 06:48 Dose: 25 mls/hr Insulin Human Lispro (Humalog) 0 units SQ HS THADDEUS PRN Reason: Protocol Stop: 09/25/18 21:01 Insulin Human Lispro (Humalog) 0 units SQ TIDAC THADDEUS PRN Reason: Protocol Stop: 09/25/18 11:31 Lactobacillus Acidophilus/Rhamnosus (Culturelle) 2 each PO DAILY THADDEUS Stop: 09/25/18 09:01 Last Admin: 03/26/18 10:34 Dose: 2 each Metoprolol Tartrate (Lopressor) 2.5 mg IVP Q6HR PRN PRN Reason: Heart Rate- High Stop: 09/24/18 17:48 Naloxone HCl (Narcan) 0.4 mg IVP Q2MIN PRN PRN Reason: SEE COMMENTS Stop: 09/24/18 17:41 Oxycodone HCl (Roxicodone) 5 mg PO Q4H PRN; Protocol PRN Reason: Pain Stop: 09/24/18 21:01 Last Admin: 03/26/18 10:34 Dose: 5 mg Simvastatin (Zocor) 40 mg PO HS THADDEUS PRN Reason: Protocol Stop: 09/25/18 21:01 Vancomycin HCl (Vancocin) 0 each IVPB RPHPROT PRN PRN Reason: PULSE DOSE Stop: 09/24/18 22:50 - Imaging and Cardiology Echo: pending Other Results: 12 hour tele: avg HR=85 afib. Min=39 - EKG Interpretation EKG results cardiology: personally reviewed Consult Discharge Plan - Plan Referrals: Isabelle Joseph, ELIGIBILITY MANAGER [Primary Care Provider] -
[2018-03-26] MEDS ORDERED: *HR* Heparin 5,000 UNIT/ML VIAL IVP PRN ×2 (12:58)
[2018-03-26 13:36] LABS: Hematocrit 26.9 % (35.3-44.9); Mean Corpuscular HGB Conc 33.5 g/dL (31.6-35.5); Mean Corpuscular Hemoglobin 28.8 pg (28.0-33.3); Mean Corpuscular Volume 85.9 fL (83.0-100.0); Platelet Count 336 K/mcL (140-400); Red Blood Count 3.13 M/mcL (3.82-4.97); Red Cell Distribution Width 14.7 % (11.5-14.5)
[2018-03-26 13:45] LABS: Heparin anti-factor XA UFH 0.03 IU/mL (0.30-0.70)
[2018-03-26 13:46] LABS: INR 1.3; Prothrombin Time 14.4 Seconds (9.4-12.1)
[2018-03-26] MEDS: Heparin 25,000 UNIT/500 ML D5W 25,000 UNIT/500 ML BAG IVC SCH (13:57)
[2018-03-26] MEDS: Acetaminophen 325 MG TABLET PO PRN (15:51)
[2018-03-26] MEDS ORDERED: *HR* Heparin 5,000 UNIT/ML VIAL SQ SCH (18:00)
[2018-03-26] MEDS: Dorzolamide/Timolol OPTH 10 ML BOTTLE RIGHT EYE SCH (21:13)
[2018-03-26] MEDS ORDERED: 0.9 % Sodium Chloride 1,000 ML ONE (23:16)
[2018-03-26] MEDS: 0.9 % Sodium Chloride 1,000 ML IVC SCH (23:18)
[2018-03-27 03:05] LABS: Basophils # 0.1 K/mcL (0.0-0.2); Basophils % 0.3 %; Eosinophils # 0.6 K/mcL (0.0-0.6); Eosinophils % 3.6 %; Hemoglobin 8.1 g/dL (11.5-15.4); Immature Granulocytes % 1.1 % (0-4); Lymphocytes # 1.7 K/mcL (0.6-4.6); Lymphocytes % 10.9 %; Mean Corpuscular HGB Conc 32.4 g/dL (31.6-35.5); Mean Corpuscular Hemoglobin 28.1 pg (28.0-33.3); Mean Corpuscular Volume 86.8 fL (83.0-100.0); Mean Platelet Volume 12.6 fL (9.4-12.4); Monocytes # 1.2 K/mcL (0.0-1.3); Monocytes % 7.8 %; Neutrophils # 11.7 K/mcL (1.6-8.9); Platelet Count 323 K/mcL (140-400); Red Blood Count 2.88 M/mcL (3.82-4.97); Red Cell Distribution Width 14.9 % (11.5-14.5); Segmented Neutrophils % 76.3 %
[2018-03-27 03:23] LABS: Calcium 7.9 mg/dL (8.6-10.3); Potassium 4.7 mEq/L (3.5-5.1)
[2018-03-27] MEDS: Piperacillin/Tazobactam 3.375 GM in 0.9 % Sodium Chloride Mini Bag 100 ML IVPB SCH ×2 (06:17→17:24)
[2018-03-27] MEDS: Clindamycin 600 MG/50 ML 600 MG/50 ML IV.SOLN IVPB SCH (07:53)
[2018-03-27] MEDS: Dorzolamide/Timolol OPTH 10 ML BOTTLE RIGHT EYE SCH ×2 (07:54→20:57)
[2018-03-27] MEDS: Insulin LISPRO 300 UNITS/3 ML VIAL SQ SCH ×4 (07:54→20:58)
[2018-03-27] MEDS: Nystatin POWDER 30 GM BOTTLE TP SCH ×3 (07:55→20:58)
[2018-03-27] MEDS: Lactobacillus 1 EACH CAP.SPRINK PO SCH (07:55)
--- NOTE | 2018-03-27 10:06 | Infectious Disease Consult ---
Date of Encounter: 03/27/18 Time of Encounter: 10:02 Assessment and Plan (1) Leukocytosis Status: Acute Assessment and plan: WBC elevated at 26 on admission. Likely secondary to left foot infection and possible UTI. Improved. Blood cultures drawn 03/25/18 are positive 2/2 sets for Staph species. The PCR did not brick picker S. aureus, but the patient's wound culture is positive for S. aureus. Repeat blood cultures drawn 03/27/18 are pending x 2 sets. Qualifiers: Leukocytosis type: other Qualified Code(s): D72.828 - Other elevated white blood cell count (2) Bacteremia Status: Acute Assessment and plan: Causative organism: Staph species per PCR. S. aureus not picked up, but since the patient has S. aureus in a wound culture, high index of suspicion for S. aureus bacteremia. Source: likely the left foot ulcer. Blood cultures drawn 03/25/18 are positive 2/2 sets. Repeat blood cultures drawn 03/27/18 are pending x 2 sets. Await final ID and sensitivities. Discontinue Vancomycin and Clinda. Continue Zosyn 3.375 grams IV Q8H for now. De-escalate if/when able. Duration of treatment depends on the clinical picture. Monitor renal function and dose-adjust antibiotics. (3) Gas gangrene Status: Acute Assessment and plan: Location: Left foot. Etiology unclear: DFU vs. animal bite/scratch vs. other. Causative organism: Polymicrobial. Wound swab culture positive for S. aureus. Intra-op culture positive for GNR. CT of the left lower extremity showed extensive soft tissue gas throughout the forefoot extending up to the ankle. Podiatry consulted. 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 Previously-placed left foot hardware was removed. Operative note reviewed. Intra-op cultures as above. Pathology pending. Pre-op ESR >130 with CRP 232. CK level 25. Wound care and activity restrictions per the Podiatry team. Continue Zosyn 3.375 grams IV Q8H for now. Discontinue Vanc and Clinda. Await cultures. De-escalate if/when able. Duration of treatment depends on the clinical picture, but likely 6-8 weeks of IV antibiotics if the foot is deemed salvageable. Monitor renal function and dose-adjust antibiotics. Avoid insertion of long-term IV access until repeat blood cultures are negative x 48 hours. Further OPAT recommendations to follow pending clinical and culture outcomes. We will continue to follow. (4) Ulcer of foot with necrosis of muscle Status: Acute Assessment and plan: Location: Plantar aspect of the left foot. Etiology unclear. Podiatry consulted and following. Antibiotic recommendations as above. Qualifiers: Laterality: left Qualified Code(s): L97.523 - Non-pressure chronic ulcer of other part of left foot with necrosis of muscle (5) UTI (urinary tract infection) Status: Acute Assessment and plan: Urine appears cloudy and foul-smelling. Patient has had some weakness and confusion. Urinalysis positive for pyuria. Await culture. Continue Zosyn as above. Qualifiers: Urinary tract infection type: acute cystitis Hematuria presence: without hematuria Qualified Code(s): N30.00 - Acute cystitis without hematuria (6) Anemia Status: Acute Assessment and plan: Hgb down to 8.1. No acute bleeding noted on exam. Further workup and management per the primary team. Qualifiers: Anemia type: iron deficiency Qualified Code(s): D50.8 - Other iron deficiency anemias (7) CKD (chronic kidney disease) stage 5, GFR less than 15 ml/min Status: Chronic Assessment and plan: Serum creatinine elevated, but appears at baseline. Continue trend. Dose-adjust antibiotics. Avoid nephrotoxins as able. (8) Insulin dependent diabetes mellitus Status: Acute Assessment and plan: Check HgbA1C. Recommend aggressive glucose monitoring and control to promote wound healing and prevent re-infection. Management per the primary team. (9) CAD (coronary artery disease) Status: Acute Qualifiers: Coronary Disease-Associated Artery/Lesion type: bypass graft [place] vs. transplanted heart: [place] heart Associated angina: without angina Qualified Code(s): I25.810 - Atherosclerosis of coronary artery bypass graft(s) without angina pectoris (10) A-fib Status: Acute Assessment and plan: Cardiology consulted. Qualifiers: Atrial fibrillation type: persistent Qualified Code(s): I48.1 - Persistent atrial fibrillation Infectious Disease HPI - Data of Consult Patient: new to practice Consult date: 03/27/18 Requesting Physician: Maricruz Chowdhury MD Primary Care Provider: Isabelle Joseph CNP - Consult Narrative Reason for consult: Left foot infection History of present illness: Ms. Kaplan is a 78 year old female with a past medical history of CAD, poorly controlled diabetes, hypertension, chronic kidney disease, A. fib, and remote history of splenectomy. The patient was imaged the hospital March 25 for leukocytosis and necrotic foot wound. We are consult March 27 for hepatic recommendations for left foot infection. Briefly, the patient is a 78-year-old female with past medical history as stated above. The patient presented to the emergency department with complaints of a necrotic foot ulcer of unknown duration and etiology. Upon arrival to the ER, the patient was afebrile and hemodynamically stable. She did have leukocytosis with neutrophilic predominance. Serum creatinine was elevated, but appears consistent with her chronic kidney disease. ESR was checked was elevated at greater than 130, CRP was 232, CK level was 25. She had a lower extremity CT scan that showed extensive subcutaneous gas throughout the forefoot and extending into the midfoot and proximally to the level of the ankle. There is also noted to be diffuse subcutaneous edema, but no organized drainable fluid collection or osteomyelitis. There was noted to be an intra- articular fracture through the proximal phalanx of the first digit. A wound culture was obtained in the emergency department, but it is labeled as a right foot wound and it is positive for MSSA. Blood cultures were obtained 2 sets and came back +2 out of 2 for staph species per PCR. The patient was started on vancomycin, Zosyn, Cipro, and clindamycin. She was admitted to the hospital for further evaluation. Since admission, the patient has remained afebrile hemodynamically stable. Her white blood cell count has trended down. She was evaluated by podiatry taken to the OR on 03/25/18 he underwent a left Lisfranc amputation and left foot/ ankle I&D by Dr. Kennedy. Pathology is pending. Intraoperative culture is positive for gram-negative rods with final ID and sensitivities pending. Cardiology has been consulted to assist with management of her atrial fibrillation. She had a transthoracic echocardiogram showed an EF of 45%. She has had some tachycardia this morning. Is planning of some right lower quadrant abdominal pain since she underwent a CT of the abdomen and pelvis that showed a small right pleural effusion, small amount of ascites, punctate nonobstructing kidney stones, extensive atherosclerotic vascular calcifications , and a tiny amount of air in the bladder likely related to recent instrumentation. Podiatry has ordered ankle-brachial indexes and TCP O2 monitoring. Repeat blood cultures were obtained this morning. Currently, she is on clindamycin, Zosyn, and vancomycin. We have been asked to evaluate and make further recommendations. During my exam today, the patient endorses the history as stated above. Her at the at the bedside and provides some history as well. Per the patient's , she he began to notice that she was more weak and tired about 3 days prior to admission. He does report one episode of subjective fevers, but otherwise denies chills or rigors. She denies any headache, congestion, earache, or sore throat. She denies any dizziness or headache. She denies any chest pain, shortness of breath, or cough. She denies any nausea or vomiting or diarrhea. She denies abdominal pain or urinary complaints. She states her appetite is okay. She does report that her blood sugars are pretty well controlled at home and her fasting blood sugar is around 150. She denies any pain at the surgical site. She states she is unsure what caused the ulceration, but they do have a puppy at their house and does report that because of her neuropathy he does often bite and like her feet and she is unaware of it. The patient does report a foul odor from the ulceration on admission with some surrounding redness and drainage. She denies any oral thrush or additional skin lesions. Per nursing, the patient's urine has a foul odor and is very dark. The patient lives at home with her . She is retired. She denies any tobacco, alcohol, illicit drug use. She denies any chronic infectious diseases. She reports last time she traveled outside the [facility] was in December and they went to [place]. She denies any prolonged exposure to water. CC: Maricruz Chowdhury MD Past Med Surg Social Fam HX - Past Medical History Attestation: Yes The following information was validated with the patient. 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, blind left eye Psychiatric history: no psych history - Past Surgical History Surgical History: appendectomy, coronary bypass (CABG), orthopedic, other, splenectomy Additional surgical history: broke left foot (screws in left foot) - Social History Smoking Status: Never smoker Smokeless Tobacco Status: No Alcohol use: none Drug use: none Occupational status: retired Current living situation: Home, With Family Activity Level: Uses cane/walker Recent Out of Country Travel Within the Last 8 Weeks: No Exposure or Possible Exposure to Illness During Travel: No - Family History Mother Living Status: Hx Family Cardiac Disorders: No Hx Family Respiratory Disorders: No Hx Family Cancer: Yes (Uterine Cancer) Hx Family GI Disorders: No Hx Family Endocrine Disorder: No Hx Family Neuromuscular Disorders: No Hx Family Neurologic Disorders: No Hx Family HEENT Disorders: No Hx Family Autoimmune Disorders: No Father History Unknown: Yes Adopted: No Living Status: Hx Family Cancer: Yes Infectious Disease-CN:Meds Dorzolamide/Timolol [Cosopt] 1 drop OP BID 02/23/17 [History] Insulin NPH Hum/Reg Insulin Hm [Humulin 70-30 Vial] 10 unit SQ BID 02/23/17 [ History] Pioglitazone HCl 30 mg PO DAILY 02/23/17 [History] Simvastatin [Zocor] 40 mg PO HS 02/23/17 [History] glipiZIDE [Glipizide] 10 mg PO BID 02/23/17 [History] Ergocalciferol (VITAMIN D2) [Vitamin D2] 50,000 unit PO QWEEK 03/25/18 [History] amLODIPine [Norvasc] 5 mg PO DAILY 03/25/18 [History] 3 Allergy/AdvReac Type Severity Reaction Status Date / Time lidocaine Allergy See Verified 02/23/17 16:30 Comments All systems: reviewed and no additional remarkable complaints except as stated Exam - Constitutional Vitals: Temp Pulse Resp BP Pulse Ox 97.4 F L 113 14 98/61 98 03/27/18 07:30 03/27/18 07:30 03/27/18 07:30 03/27/18 07:30 03/27/18 08:45 General appearance: cooperative, no acute distress, obese - Head Head exam: Present: atraumatic, normal inspection, normocephalic - Eye Eye exam: Absent: normal appearance (Left eye cloudy with atrophy noted.) - ENT ENT exam: Present: mucous membranes moist - Neck Neck exam: Present: normal inspection - Respiratory Respiratory exam: Present: CTAB. Absent: rales, respiratory distress, rhonchi, wheezes - Cardiovascular Cardiovascular exam: Present: irregular rhythm, +S1, +S2. Absent: tachycardia - GI/Abdominal GI/Abdominal exam: Present: normal bowel sounds, soft. Absent: distended, tenderness - Extremities Exam Extremities exam: Absent: joint swelling, pedal edema, tenderness Additional comments: Left foot postop dressing is clean, dry, and intact. - Neurological Exam Neurological exam: Present: alert, oriented X3, no focal deficits - Psychiatric Psychiatric exam: Present: normal affect, normal mood - Skin Skin exam: Present: dry, intact, normal color, warm Infectious Disease CN: Results - Labs CBC & Chem 7: 03/27/18 02:53 03/27/18 02:53 Cultures: Cultures 03/25/18 18:56 Wound Culture - Preliminary Left Foot Gram Negative Daryl 03/25/18 18:56 Gram Stain - Final Left Foot 03/27/18 02:53 Blood Culture - Preliminary Peripheral Venipuncture Culture is incubating and being continuously monitored for growth. Final report to follow. 03/27/18 02:53 Blood Culture - Preliminary Peripheral Venipuncture Culture is incubating and being continuously monitored for growth. Final report to follow. Consult Discharge Plan - Plan Referrals: Isabelle Joseph CNP [Primary Care Provider] - - Attending Attestation I examined this patient and my medical decision-making was reviewed with the Resident Physician. I agree with the documented findings, disposition and treatment plan as described except to the extent set forth below. This is an addendum to original report dictated by Kacie Schmidt CNP. Please refer to Kacie's consult for full detail. Patient is an 78-year-old woman with past medical history mentioned below presented with gas gangrene and abscess of the left foot. Patient was taken to surgery where she underwent left Lisfranc amputation and left foot/ankle I&D. Pathology was taken still pending cultures revealing staph aureus methicillin sensitive and gram-negative daryl final ID pending. Patient was also noted to be bacteremic with the staph aureus 2 out of 2 sets even though the PCR only picked up staph species. Patient was also having urinary symptoms and a urine culture was obtained and results are pending. Assessment and plan: Gas gangrene of left foot polymicrobial with staph aureus MSSA and gram- negative daryl status post left Lisfranc amputation and left foot/ankle I&D and removal of hardware MSSA bacteremia 2 out of 2 sets positive Ulcer of foot with necrosis all muscle Diabetes mellitus type 2 Chronic kidney disease stage V Cardiac disease Atrial fibrillation Recommendations: Continue Zosyn Me BC vancomycin since the patient's kidney function is not doing well and there is no MRSA Repeat blood cultures 2 Await the gram-negative daryl from the wound to finalize Based on the culture results we will make further recommendations likely combination of cefazolin and levofloxacin but we still need to cultures to finalize first. Monitor labs and for drug toxicity Dose adjust antibiotics based on creatinine clearance Duration of treatment 6 weeks
[2018-03-27] MEDS: Heparin 25,000 UNIT/500 ML D5W 25,000 UNIT/500 ML BAG IVC SCH (11:02)
--- NOTE | 2018-03-27 11:57 | Cardiology Progress Note ---
Date of Encounter: 03/27/18 Time of Encounter: 11:30 Assessment and Plan (1) A-fib Current Visit: Yes Status: Acute New diagnosis of atrial fibrillation; chronicity unclear. Reports intermittent palpitations over the past several months. Admitted with necrotic wound on left foot; s/p partial amputations. Per podiatry , will need repeat debridement as inpatient. Recommend rate control strategy avg HR=92 overnight. Currently not on AV kathrin blocking agents, can add low dose BB if needed. TTE shows mild reduction in LVEF, 45%. Unclear chronicity, hx of CABG in 2000. Pt. denies dyspnea/cp. Will continue medical therapy for now. Patient and family are not interested in invasive evaluation given stable symptoms. CHA2Ds Vasc= 6-7 (CAD, age, female, DMII, HTN, CHF); recommend long-term AC. Given renal dysfunction and advacned age, recommend Coumadin prior to discharge if H/H stable. Will start heparin gtt (standard dose) for now given need for repeat debridement as inpatient. (Dr. Johnson discussed with Dr. Ayers). Will continue to follow. H/H drop overnight, likely d/t surgery (partial amputation) 03/25. Closely monitor H/H while on AC. Qualifiers: Atrial fibrillation type: persistent Qualified Code(s): I48.1 - Persistent atrial fibrillation (2) Gas gangrene Current Visit: Yes Status: Acute s/p partial left foot amputation. Podiatry following. Discussion w patient/family: The assessment and plan as outlined above was discussed with the patient and/or family members who expressed understanding and agreement. All questions were answered. Thank you for involving us in the care of your patient. Please call with any questions. The patient will be discussed and reviewed with Dr. Gonzalez; changes to be made accordingly. Subjective Principal diagnosis: Afib, left foot partial amputation Interval history: Seen and examined. Reported episode of confusion overnight, required room move closer to nurses station. Alert and oriented now, no complaints other than left foot pain on exam. Discussed TTE results with patient and family. Objective Vital Signs, Last 4 Hours Pulse Ox 03/27/18 08:45 98 General: Conversant, No Apparent Distress HEENT: Atraumatic, Normocephaly, Mucus Membranes Moist Cardiac: Other (irregularly irregular) Lungs: Normal Breath Sounds Neuro: Alert and responsive Abdomen: Soft Skin: No rashes noted on visualized skin Musculoskeletal: No Chest Wall Tenderness Extremities: Other (RLE mild edema; partial left foot amputation. ) Results 03/27/18 02:53 03/27/18 02:53 Lab Results 03/26/18 03/26/18 03/27/18 13:08 13:08 02:53 WBC 18.9 H 15.3 H Hgb 9.0 L 8.1 L Hct 26.9 L 25.0 L Plt Count 336 323 INR 1.3 Sodium Potassium Chloride Carbon Dioxide BUN Creatinine Glucose Calcium 03/27/18 02:53 WBC Hgb Hct Plt Count INR Sodium 136 Potassium 4.7 Chloride 110 H Carbon Dioxide 17 L BUN 72 H Creatinine 1.94 H Glucose 287 H Calcium 7.9 L Active Medications Acetaminophen (Tylenol) 650 mg PO Q6H PRN PRN Reason: Mild Pain/Fever Stop: 09/24/18 21:01 Last Admin: 03/26/18 15:51 Dose: 650 mg Dextrose/Water (Dextrose 50% (Syg)) 25 ml IVP AD PRN PRN Reason: Hypoglycemia Stop: 09/24/18 17:44 Dorzolamide/Timolol (Cosopt) 1 drop RIGHT EYE BID THADDEUS Stop: 09/25/18 21:01 Last Admin: 03/27/18 07:54 Dose: 1 drop Glucagon (Glucagen) 1 mg IM ONCE PRN PRN Reason: Hypoglycemia Stop: 09/24/18 17:44 Glucose (Gluctose) 15 gm PO ONCE PRN PRN Reason: Hypoglycemia Stop: 09/24/18 17:44 Glucose (Gluctose) 30 gm PO ONCE PRN PRN Reason: Hypoglycemia Stop: 09/24/18 17:44 Heparin Sodium (Porcine) (Heparin) 6,200 unit 70 unit/kg (6200 unit) IVP Q6HR PRN PRN Reason: SEE COMMENTS Stop: 09/25/18 12:59 Heparin Sodium (Porcine) (Heparin) 3,100 unit 35 unit/kg (3100 unit) IVP Q6H PRN PRN Reason: SEE COMMENTS Stop: 09/25/18 12:59 Clindamycin Phosphate/Dextrose (Cleocin Premix 600 Mg/50 Ml) 600 mg in 50 mls @ 50 mls/hr IVPB Q8HR THADDEUS Stop: 09/25/18 08:01 Last Infusion: 03/27/18 10:47 Dose: Infused Dextrose (Dextrose 5%) 1,000 mls @ 100 mls/hr IVC .Q10H PRN PRN Reason: HYPOGLYCEMIA Stop: 09/24/18 17:44 Piperacillin Sod/Tazobactam (Sod 3.375 gm/ Sodium Chloride) 100 mls @ 25 mls/ hr IVPB Q12HR THADDEUS Stop: 09/25/18 06:01 Last Infusion: 03/27/18 10:48 Dose: Infused Heparin Sodium/Dextrose (Heparin 25,000 Unit/500 Ml D5w) 25,000 unit in 500 mls @ 24.893 mls/hr IVC .Q20H6M THADDEUS; 14 UNIT/KG/HR PRN Reason: Protocol Stop: 09/25/18 13:01 Last Admin: 03/27/18 11:02 Dose: 14 unit/kg/hr, 24.893 mls/hr Insulin Human Lispro (Humalog) 0 units SQ HS [facility] PRN Reason: Protocol Stop: 09/25/18 21:01 Last Admin: 03/26/18 21:13 Dose: 4 units Insulin Human Lispro (Humalog) 0 units SQ TIDAC [facility] PRN Reason: Protocol Stop: 09/25/18 11:31 Last Admin: 03/27/18 07:54 Dose: 10 units Lactobacillus Acidophilus/Rhamnosus (Culturelle) 2 each PO DAILY [facility] Stop: 09/25/18 09:01 Last Admin: 03/27/18 07:55 Dose: 2 each Metoprolol Tartrate (Lopressor) 2.5 mg IVP Q6HR PRN PRN Reason: Heart Rate- High Stop: 09/24/18 17:48 Naloxone HCl (Narcan) 0.4 mg IVP Q2MIN PRN PRN Reason: SEE COMMENTS Stop: 09/24/18 17:41 Nystatin (Nystop) 1 appl TP TID [facility] Stop: 09/26/18 09:01 Last Admin: 03/27/18 07:55 Dose: 1 appl Oxycodone HCl (Roxicodone) 5 mg PO Q4H PRN; Protocol PRN Reason: Pain Stop: 09/24/18 21:01 Last Admin: 03/26/18 10:34 Dose: 5 mg Simvastatin (Zocor) 40 mg PO HS THADDEUS PRN Reason: Protocol Stop: 09/25/18 21:01 Last Admin: 03/26/18 21:13 Dose: 40 mg Vancomycin HCl (Vancocin) 0 each IVPB RPHPROT PRN PRN Reason: PULSE DOSE Stop: 09/24/18 22:50 - Imaging and Cardiology Echo: report reviewed Other Results: 12 hour tele: avg HR=92 afib. - EKG Interpretation EKG results cardiology: personally reviewed Consult Discharge Plan - Plan Referrals: Isabelle Joseph TWIST MAKER [Primary Care Provider] -
--- NOTE | 2018-03-27 12:31 | Podiatry Progress Note ---
Date of Encounter: 03/27/18 Time of Encounter: 12:28 - Assessment and Plan (1) Gas gangrene Current Visit: Yes Status: Acute GAEL/PVR, TCPO2 ordered. Awaiting results. Patient dressing changed. Applied adaptic, kerlex, and martin bandage. Possible return to OR for washout and debridement. Continue non-weight bearing status. Family at bedside and updated on plan. ID to follow for ATB. Appreciate input. (2) Diabetes mellitus with foot ulcer Current Visit: Yes Status: Acute Continue monitoring blood glucose levels in hospital and covering with sliding scale insulin. Currently running 270-297 on medium sliding scale. Qualifiers: Diabetes mellitus type: type 2 Diabetes mellitus alf insulin use: with alf use Qualified Code(s): E11.621 - Type 2 diabetes mellitus with foot ulcer; L97.509 - Non-pressure chronic ulcer of other part of unspecified foot with unspecified severity; Z79.4 - keno terminal operator (current) use of insulin Subjective Principal diagnosis: Afib, left foot partial amputation Interval history: Post op day #2. Patient sitting in bed. Confused. Family at bedside. Denies pain. States she has been non-ambulatory Objective - Vital Signs Vital Signs: Vital Signs Temp Pulse Resp BP Pulse Ox 03/27/18 11:55 98.2 F 80 16 94/57 97 03/27/18 08:45 98 03/27/18 07:30 97.4 F L 113 14 98/61 98 03/27/18 04:49 98.2 F 107 17 84/53 94 03/26/18 23:19 97.5 F L 91 16 101/62 97 03/26/18 19:50 98.0 F 106 17 92/50 96 03/26/18 15:17 97.5 F L 90 16 97/45 98 Intake and Output 03/26/18 03/27/18 03/27/18 23:59 07:59 15:59 Intake Total 621 / 621 206 / 206 1323 / 1323 Output Total 75 / 75 Balance 621 / 621 131 / 131 1323 / 1323 Intake: IV Fluids 321 / 321 206 / 206 1323 / 1323 Heparin 25,000 UNIT/500 ML D5W 171 / 171 156 / 156 173 / 173 25,000 unit In 500 ml @ 14 UNIT /KG/HR 24.893 mls/hr IVC . Q20H6M THADDEUS Rx#:[id number] Cleocin Premix 600 MG/50 ML 600 50 / 50 50 / 50 50 / 50 mg In 50 ml @ 50 mls/hr IVPB Q8HR THADDEUS Rx#:[id number] Zosyn 3.375 GM In 0.9 % Sodium 100 / 100 100 / 100 Chloride (Mini-Bag +) 100 ML @ 25 mls/hr IVPB Q12HR THADDEUS Rx#: [id number] Oral 300 / 300 Output: Urine 75 / 75 Other: # Urine Diapers 1 Blood Glucose* 224 291 267 - Exam Incision: Present: draining, red, swollen Capillary Refill: none - Lab Result Diagrams: 03/27/18 02:53 03/27/18 02:53 Labs: Abnormal lab results WBC 15.3 K/mcL (4.3-11.1) H 03/27/18 02:53 RBC 2.88 M/mcL (3.82-4.97) L 03/27/18 02:53 Hgb 8.1 g/dL (11.5-15.4) L 03/27/18 02:53 Hct 25.0 % (35.3-44.9) L 03/27/18 02:53 RDW 14.9 % (11.5-14.5) H 03/27/18 02:53 MPV 12.6 fL (9.4-12.4) H 03/27/18 02:53 Neutrophils # 11.7 K/mcL (1.6-8.9) H 03/27/18 02:53 Platelet Estimate Increased (Normal) H 03/25/18 14:58 ESR >= 130 mm/hr (0-15) H 03/25/18 14:58 PT 14.4 Seconds (9.4-12.1) H 03/26/18 13:08 Chloride 110 mEq/L (98-107) H 03/27/18 02:53 Carbon Dioxide 17 mEq/L (23-29) L 03/27/18 02:53 BUN 72 mg/dL (8-23) H 03/27/18 02:53 Creatinine 1.94 mg/dL (0.60-1.20) H 03/27/18 02:53 Est GFR ( Amer) 30 (> 60) L 03/27/18 02:53 Est GFR (Non-Af Amer) 25 (> 60) L 03/27/18 02:53 BUN/Creatinine Ratio 37 (6-26) H 03/27/18 02:53 Glucose 287 mg/dL (70-105) H 03/27/18 02:53 POC Glucose 267 mg/dL (70-99) H 03/27/18 11:52 Calculated Osmolality 314 (280-300) H 03/27/18 02:53 Calcium 7.9 mg/dL (8.6-10.3) L 03/27/18 02:53 Creatine Kinase 25 Units/L (30-223) L 03/25/18 14:58 C-Reactive Protein 232 mg/L (Less than 10) H 03/25/18 14:58 Vancomycin Trough 11 mcg/mL (5-10) H 03/26/18 21:40 Staphylococcus sp PCR DETECTED (Not Detect) A 03/25/18 15:06 Staph aureus (PCR) DETECTED (Not Detect) A 03/25/18 15:06 Microbiology, Last 48 Hours 03/25/18 18:56 Wound Culture - Preliminary Left Foot Gram Negative Daryl 03/25/18 18:56 Gram Stain - Final Left Foot 03/27/18 02:53 Blood Culture - Preliminary Peripheral Venipuncture Culture is incubating and being continuously monitored for growth. Final report to follow. 03/27/18 02:53 Blood Culture - Preliminary Peripheral Venipuncture Culture is incubating and being continuously monitored for growth. Final report to follow. Consult Discharge Plan - Plan Referrals: Isabelle Joseph, DATABASE REPORTING CONSULTANT [Primary Care Provider] -
--- NOTE | 2018-03-27 13:04 | Electrocardiograph Report ---
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
[2018-03-27] MEDS: Acetaminophen 325 MG TABLET PO PRN (13:12)
[2018-03-27 13:37] LABS: Bilirubin,Urine Negative (Negative); Blood,Urine Small (Negative); Clarity,Urine Turbid (Clear); Color,Urine Dark Yellow (Yellow); Glucose,Urine (UA) Normal (Normal); Ketones,Urine Negative (Negative); Leukocyte Esterase,Urine Large (Negative); Nitrite,Urine Negative (Negative); PH,Urine 5.5 pH Units (5.0-8.0); Protein,Urine Trace mg/dL (Neg-Trace); Urobilinogen,Urine Normal (Normal)
[2018-03-27 13:42] LABS: Bacteria,Urine None Seen per hpf (None-Few); Hyaline Casts,Urine None Seen per lpf (None-Few); WBC,Urine TNTC per hpf (0-3)
[2018-03-27 14:06] LABS: RBC,Urine 0-3 per hpf (0-3); Squamous Epithelial Cell,Urine Moderate per lpf (None-Few); Yeast,Urine Many per hpf (None Seen)
[2018-03-27] MEDS: *HR* OxyCODONE Immed Rel 5 MG TABLET PO PRN ×2 (14:09→19:26)
--- NOTE | 2018-03-27 14:50 | Internal Med Progress Note ---
Hospitalist Progress Note - Encounter Date of Encounter: 03/27/18 Time of Encounter: 09:00 - Subjective Interval History: Pt had amputation and I/D by podiatry yesterday. C/O minimal pain on foot. C/O pain on RLQ belly/right hip area - Exam Vitals: Temp Pulse Resp BP Pulse Ox 98.2 F 80 16 94/57 97 03/27/18 11:55 03/27/18 11:55 03/27/18 11:55 03/27/18 11:55 03/27/18 11:55 Exam: Pt is AAO x 3, in NAD HEENT: NC/AT, left eye blinded Neck: Supple, no JVD Lungs: CTA b/l Heart: Irregularly irregular rhythm, S1S2 Abd: Soft, mild tenderness on RLQ w/o rebound/guarding. Ext: Left foot s/p surgery, well dressed. Neuro: Both feet decreased sensation. - Assessment and Plan (1) CAD (coronary artery disease) Current Visit: Yes Status: Acute Assessment and Plan: No chest pain. Cont home meds. (2) A-fib Current Visit: Yes Status: Acute Assessment and Plan: Incidentally found in ER. Pt denies hx of A Fib. HR 90s. - Cardio consult appreciated, heparin drip started for AC, may need to switch to coumadin on discharge - HR is well controlled. BP is at lower side, hold BB or cardizem. - Echo shows LVEF 45%, no significant valve disease. (3) Diabetes mellitus with foot ulcer Current Visit: Yes Status: Acute Assessment and Plan: Severe gas gangrene. Not meet criteria for sepsis. Lactate 0.8 - S/P amputation, I/D. - Cont iv Vanco, zosyn, and Clindamycin - Cont closely monitor pt - ID consult as pt has hx of splenectomy and dog licking and bacteremia. - F/U wound culture result. (4) Gas gangrene Current Visit: Yes Status: Acute Assessment and Plan: Management as above. (5) Leukocytosis Current Visit: Yes Status: Acute Assessment and Plan: Due to foot infection, management as above. Decreased after surgery and abx use. (6) DVT prophylaxis Current Visit: No Status: Acute Assessment and Plan: Heparin SC (7) Diabetes Current Visit: No Status: Acute Assessment and Plan: Place pt on sliding scale insulin. Closely monitor Glu. (8) CKD (chronic kidney disease) stage 5, GFR less than 15 ml/min Current Visit: No Status: Chronic Assessment and Plan: Cr is about at her baseline. (9) Bacteremia Current Visit: Yes Status: Acute Assessment and Plan: 2/2 Blood culture positive for GPC. - Final culture report pending. - Cont broad spectrum abx now. - ID consult. - Blood culture repeated. (10) UTI (urinary tract infection) Current Visit: Yes Status: Acute Assessment and Plan: C/O RLQ pain, CT abd/pelvis shows cystitis, UA shows UTI. - Pt is on broad spectrum Abx already for foou gangrene, which will also cover UTI. - F/U urine culture. DVT Prophylaxis: On heparin drip. - Time Spent with Patient Total time spent is greater than 50% in coordination of care (as documented) at patient's floor/unit and/or counseling patient: 40 min Greater than 35 minutes Plan of Care Discussed with: patient Internal Medicine: Result - Labs CBC & Chem 7: 03/27/18 02:53 03/27/18 02:53 Labs: Short CBC 03/27/18 Range/Units 02:53 WBC 15.3 H (4.3-11.1) K/mcL Hgb 8.1 L (11.5-15.4) g/dL Hct 25.0 L (35.3-44.9) % Plt Count 323 (140-400) K/mcL Neutrophils # 11.7 H (1.6-8.9) K/mcL BMP 03/27/18 02:53 Sodium 136 Potassium 4.7 Chloride 110 H Carbon Dioxide 17 L BUN 72 H Creatinine 1.94 H Glucose 287 H Calcium 7.9 L Urine 03/27/18 Range/Units 12:27 Urine Color Dark Yellow (Yellow) Urine Clarity Turbid A (Clear) Urine pH 5.5 (5.0-8.0) pH Units Ur Specific [place] 1.020 (1.010-1.025) Urine Protein Trace (Neg-Trace) mg/dL Urine Glucose (UA) Normal (Normal) mg/dL - ABG Interpretation ABG results: PT/INR, D-dimer PT 14.4 Seconds (9.4-12.1) H 03/26/18 13:08 - Impressions Impressions Echocardiogram 03/26/18 18:19 Impressions: LVEF 45%. Normal LV chamber size, wall thickness. Mild segmental left ventricular systolic dysfunction. Indeterminate diastolic function. Normal right ventricular structure and function. Mild aortic sclerosis. Mean gradient 11 mmHg. Mild mitral stenosis. Mean gradient 5 mmHg. Mild tricuspid regurgitation. Abdomen/Pelvis CT 03/27/18 08:20 IMPRESSION: Small right pleural effusion. Small amount of ascites. Punctate nonobstructing kidney stones. Extensive atherosclerotic vascular calcifications. Tiny amount of air in the bladder likely related to recent instrumentation. There is some mild prominence of bladder wall and some indistinctness of the perivesicular fat questioning cystitis. D/ / 03/27/2018 09:44:27 Judd Bose MD / [place] Interpreting Provider: Judd Bose MD Consult Discharge Plan - Plan Referrals: Isabelle Joseph, VENDOR QUALITY SUPERVISOR [Primary Care Provider] - (1) CAD (coronary artery disease) Qualifiers: Coronary Disease-Associated Artery/Lesion type: bypass graft [place] vs. transplanted heart: [place] heart Associated angina: without angina Qualified Code(s): I25.810 - Atherosclerosis of coronary artery bypass graft(s) without angina pectoris (2) A-fib Qualifiers: Atrial fibrillation type: persistent Qualified Code(s): I48.1 - Persistent atrial fibrillation (3) Diabetes mellitus with foot ulcer Qualifiers: Diabetes mellitus type: type 2 Diabetes mellitus predatory animal exterminator insulin use: with long-term use Qualified Code(s): E11.621 - Type 2 diabetes mellitus with foot ulcer; L97.509 - Non-pressure chronic ulcer of other part of unspecified foot with unspecified severity; Z79.4 - predatory animal exterminator (current) use of insulin (5) Leukocytosis Qualifiers: Leukocytosis type: other Qualified Code(s): D72.828 - Other elevated white blood cell count (7) Diabetes Qualifiers: Diabetes mellitus type: type 2 Diabetes mellitus long-term insulin use: with predatory animal exterminator use Diabetes mellitus complication status: with kidney complications Diabetes mellitus complication detail: with chronic kidney disease Chronic kidney disease stage: stage 5, not on chronic dialysis Qualified Code(s): E11.22 - Type 2 diabetes mellitus with diabetic chronic kidney disease; N18.5 - Chronic kidney disease, stage 5; Z79.4 - predatory animal exterminator (current) use of insulin (10) UTI (urinary tract infection) Qualifiers: Urinary tract infection type: acute cystitis Hematuria presence: without hematuria Qualified Code(s): N30.00 - Acute cystitis without hematuria
[2018-03-27] MEDS: Insulin NPH/REG 70/30 100 UNIT/ML (x5UNIT) SQ SCH (17:24)
--- NOTE | 2018-03-27 18:03 | Vascular/Endovasc Consult Note ---
Date of Encounter: 03/27/18 Time of Encounter: 17:45 Assessment and Plan (1) Peripheral vascular disease Current Visit: Yes Status: Chronic The pathophysiology and natural history of peripheral vascular disease with discussed the patient and all questions were answered. Her bilateral tibial waveforms are moderately abnormal. Her bilateral TCP O2 levels are consistent with healing. Given that her TCP O2 levels are consistent with healing it is recommended that the patient continue with debridement, local wound care and definitive amputation by podiatry. Given her chronic kidney disease stage IV angiography at this time would pose significant risk of progression to end- stage renal disease. Limited angiography may be considered with the patient is unable to heal her wound despite TCP O2 levels consistent with healing. The patient was informed that if insufficient viable tissue remains for wound closure at the operative site then below-knee amputation may be required. (2) Chronic kidney disease, stage IV (severe) Current Visit: Yes Status: Chronic (3) Insulin dependent diabetes mellitus Current Visit: No Status: Chronic (4) Diabetes mellitus with foot ulcer Current Visit: Yes Status: Chronic The patient was counseled regarding atherosclerotic risk factor reduction. Qualifiers: Diabetes mellitus type: type 2 Diabetes mellitus manager terminal insulin use: with jail use Qualified Code(s): E11.621 - Type 2 diabetes mellitus with foot ulcer; L97.509 - Non-pressure chronic ulcer of other part of unspecified foot with unspecified severity; Z79.4 - residential (current) use of insulin (5) CAD (coronary artery disease) Current Visit: Yes Status: Chronic Qualifiers: Coronary Disease-Associated Artery/Lesion type: bypass graft [place] vs. transplanted heart: [place] heart Associated angina: without angina Qualified Code(s): I25.810 - Atherosclerosis of coronary artery bypass graft(s) without angina pectoris (6) A-fib Current Visit: Yes Status: Acute Qualifiers: Atrial fibrillation type: persistent Qualified Code(s): I48.1 - Persistent atrial fibrillation - History of Present Illness Consult date: 03/27/18 Requesting physician: Kacie Nunn Consult reason: Peripheral vascular disease Chief complaint: Left foot infection History of present illness: Ms. Kaplan is a 78 year old female with a past medical history of diabetes, hyperlipidemia, hypertension and coronary artery disease. The patient presented to [facility] on 03/25/2018 with severe left foot infection. She was found have gas gangrene and underwent a partial foot amputation by Podiatry. As part of her evaluation general vascular lab studies. Her ankle brachial index was noted be abnormal so vascular surgery was counseled for further evaluation. The patient is currently comfortable. She denies history of disabling claudication, rest pain or prior ulceration or gangrene. She denies any fevers or chills. She denies any chest pain or shortness of breath. 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, blind left eye Psychiatric history: no psych history - Past Surgical History Surgical History: appendectomy, coronary bypass (CABG), orthopedic, other, splenectomy Additional surgical history: broke left foot (screws in left foot) - Social History Smoking Status: Never smoker Smokeless Tobacco Status: No Alcohol use: none Drug use: none - Family History Mother Living Status: Hx Family Cardiac Disorders: No Hx Family Respiratory Disorders: No Hx Family Cancer: Yes (Uterine Cancer) Hx Family GI Disorders: No Hx Family Endocrine Disorder: No Hx Family Neuromuscular Disorders: No Hx Family Neurologic Disorders: No Hx Family HEENT Disorders: No Hx Family Autoimmune Disorders: No Father History Unknown: Yes Adopted: No Living Status: Hx Family Cancer: Yes Medications and Allergies Dorzolamide/Timolol [Cosopt] 1 drop OP BID 02/23/17 [History] Insulin NPH Hum/Reg Insulin Hm [Humulin 70-30 Vial] 10 unit SQ BID 02/23/17 [ History] Pioglitazone HCl 30 mg PO DAILY 02/23/17 [History] Simvastatin [Zocor] 40 mg PO HS 02/23/17 [History] glipiZIDE [Glipizide] 10 mg PO BID 02/23/17 [History] Ergocalciferol (VITAMIN D2) [Vitamin D2] 50,000 unit PO QWEEK 03/25/18 [History] amLODIPine [Norvasc] 5 mg PO DAILY 03/25/18 [History] 3 Allergy/AdvReac Type Severity Reaction Status Date / Time lidocaine Allergy See Verified 02/23/17 16:30 Comments All Systems Review: The remainder of the systems were reviewed and are negative - Constitutional Constitutional: no chills, no fever(s) - Cardiovascular Cardiovascular: no chest pain at rest, no dyspnea at rest Exam Vital Signs, Last 4 Hours Temp Pulse Resp BP Pulse Ox 03/27/18 15:39 98.5 F 96 16 100/58 98 General: Present: Conversant, No Apparent Distress HEENT: Present: Pupils equal Neck: Absent: JVD, Lymphadenopathy, Left Carotid bruit, Right Carotid bruit Cardiac: Present: Normal S1 and S2, Irregular Rhythm Lungs: Present: Normal Breath Sounds, No Wheeze, Rales, Rhonchi Neuro: Present: Alert and responsive, No focal deficits noted, Motor nerves grossly intact, Sensory nerves grossly intact Abdomen: Present: Soft, Non-tender. Absent: [place] Vascular: Present: Normal capillary refill, Pulse, diminished (Pedal signals present bilaterally), Surgical incisions (Left foot is bandaged). Absent: Cyanosis, Edema Skin: Present: No rashes noted on visualized skin Consult Discharge Plan - Plan Referrals: Isabelle Joseph CNP [Primary Care Provider] -
[2018-03-28] MEDS: Piperacillin/Tazobactam 3.375 GM in 0.9 % Sodium Chloride Mini Bag 100 ML IVPB SCH ×2 (00:05→08:21)
[2018-03-28 03:44] LABS: Basophils # 0.1 K/mcL (0.0-0.2); Basophils % 0.3 %; Eosinophils # 0.6 K/mcL (0.0-0.6); Eosinophils % 4.2 %; Hematocrit 23.6 % (35.3-44.9); Hemoglobin 7.9 g/dL (11.5-15.4); Immature Granulocytes % 1.2 % (0-4); Lymphocytes # 2.4 K/mcL (0.6-4.6); Mean Corpuscular HGB Conc 33.5 g/dL (31.6-35.5); Mean Corpuscular Hemoglobin 28.9 pg (28.0-33.3); Mean Corpuscular Volume 86.4 fL (83.0-100.0); Mean Platelet Volume 12.6 fL (9.4-12.4); Monocytes # 1.3 K/mcL (0.0-1.3); Monocytes % 8.9 %; Neutrophils # 10.4 K/mcL (1.6-8.9); Platelet Count 358 K/mcL (140-400); Red Blood Count 2.73 M/mcL (3.82-4.97); Red Cell Distribution Width 15.2 % (11.5-14.5); Segmented Neutrophils % 69.4 %
[2018-03-28 04:05] LABS: Potassium 4.8 mEq/L (3.5-5.1)
[2018-03-28] MEDS: Acetaminophen 325 MG TABLET PO PRN (04:29)
[2018-03-28] MEDS: Heparin 25,000 UNIT/500 ML D5W 25,000 UNIT/500 ML BAG IVC SCH ×2 (07:54→08:30)
[2018-03-28] MEDS ORDERED: Aminoglycoside Consult 1 EACH MC ONE (08:13)
[2018-03-28] MEDS: Lactobacillus 1 EACH CAP.SPRINK PO SCH (08:21)
[2018-03-28] MEDS: Insulin NPH/REG 70/30 100 UNIT/ML (x5UNIT) SQ SCH ×2 (08:23→16:43)
[2018-03-28] MEDS: Nystatin POWDER 30 GM BOTTLE TP SCH ×3 (08:24→20:33)
[2018-03-28] MEDS: Insulin LISPRO 300 UNITS/3 ML VIAL SQ SCH ×4 (08:24→20:33)
[2018-03-28] MEDS: Dorzolamide/Timolol OPTH 10 ML BOTTLE RIGHT EYE SCH ×2 (08:24→20:33)
[2018-03-28] MEDS ORDERED: 0.9 % Sodium Chloride 250 ML IVC SCH (12:00)
--- NOTE | 2018-03-28 12:12 | Internal Med Progress Note ---
Hospitalist Progress Note - Encounter Date of Encounter: 03/28/18 Time of Encounter: 11:00 - Subjective Interval History: Patient seen and examined this morning. No acute overnight events. - Exam Vitals: Temp Pulse Resp BP Pulse Ox 97.9 F 91 16 120/70 92 03/28/18 10:44 03/28/18 10:44 03/28/18 10:44 03/28/18 10:44 03/28/18 10:44 Exam: Gen: AO x 3, in NAD HEENT: NC/AT, left eye blind Neck: Supple, no JVD Lungs: CTA b/l Heart: Irregularly irregular rhythm, S1,S2, no MRG Abd: Soft, mild tenderness on RLQ w/o rebound/guarding. Ext: Left foot s/p surgery, well dressed. Neuro: decreased sensation. - Assessment and Plan (1) CKD (chronic kidney disease) stage 5, GFR less than 15 ml/min Current Visit: No Status: Chronic (2) DVT prophylaxis Current Visit: No Status: Acute (3) Diabetes Current Visit: No Status: Acute (4) Leukocytosis Current Visit: Yes Status: Acute (5) Gas gangrene Current Visit: Yes Status: Acute (6) Diabetes mellitus with foot ulcer Current Visit: Yes Status: Chronic (7) CAD (coronary artery disease) Current Visit: Yes Status: Chronic (8) A-fib Current Visit: Yes Status: Acute (9) Bacteremia Current Visit: Yes Status: Acute (10) UTI (urinary tract infection) Current Visit: Yes Status: Acute - Summary of Assessment and Plan Summary of Assessment and Plan: Diabetes mellitus with foot ulcer and gas gangrene - Severe gas gangrene. Not meet criteria for sepsis. Lactate 0.8. - S/P amputation, I/D by podiatry. Leukocytosis improving. - Was started Vanco, zosyn, and Clindamycin. Vanc and clindamycin stopped. Wound culture and blood culture with MSSA and Proteus pansensitive. Will likely switch zosyn to cephazolin per ID. - Will need further debridement and washout per podiatry. - vascular following. New A-fib - Incidentally found in ER. Pt denies hx of A Fib. HR 90s. - c/w heparin drip started for AC. Will switch to oral on DC and f/u outpatient with cardio. - HR is well controlled. BB or cardizem held due to low B. IV prn metoprolol - Echo shows LVEF 45%, no significant valve disease. - cardio following. Anemia - currently 7.9. Presented with 10. Baseline of 9-10. Possible component of concentration with bacteremia. - Started on Heparin for afib. Will obtain stool occult. no h/o Gi bleed. - Fermin transfuse given h/o CAD and plan for surgery. CKD -Cr is about at her baseline. CAD - No chest pain. Cont home meds. Bacteremia - 2/2 Blood culture and wound positive for 03/25/18 for MSSA . - On zosyn. Will likely switch to cephzolin - repeat blood culture 03/27/18 NGTD. - ID consult. UTI - C/O RLQ pain, CT abd/pelvis shows ? cystitis, UA shows ? UTI. - Pt is on broad spectrum Abx - F/U urine culture. DVT prophylaxis - Heparin SC - Time Spent with Patient Total time spent is greater than 50% in coordination of care (as documented) at patient's floor/unit and/or counseling patient: Internal Medicine: Result - Labs CBC & Chem 7: 03/28/18 03:23 03/28/18 03:23 Labs: Short CBC 03/28/18 Range/Units 03:23 WBC 15.0 H (4.3-11.1) K/mcL Hgb 7.9 L (11.5-15.4) g/dL Hct 23.6 L (35.3-44.9) % Plt Count 358 (140-400) K/mcL Neutrophils # 10.4 H (1.6-8.9) K/mcL BMP 03/28/18 03:23 Sodium 137 Potassium 4.8 Chloride 112 H Carbon Dioxide 16 L BUN 72 H Creatinine 2.10 H Glucose 161 H Calcium 8.0 L Urine 03/27/18 Range/Units 12:27 Urine Color Dark Yellow (Yellow) Urine Clarity Turbid A (Clear) Urine pH 5.5 (5.0-8.0) pH Units Ur Specific [place] 1.020 (1.010-1.025) Urine Protein Trace (Neg-Trace) mg/dL Urine Glucose (UA) Normal (Normal) mg/dL - ABG Interpretation ABG results: PT/INR, D-dimer PT 14.4 Seconds (9.4-12.1) H 03/26/18 13:08 Consult Discharge Plan - Plan Referrals: Isabelle Joseph, [employer] [Primary Care Provider] - (3) Diabetes Qualifiers: Diabetes mellitus type: type 2 Diabetes mellitus half-way insulin use: with superintendent container terminal use Diabetes mellitus complication status: with kidney complications Diabetes mellitus complication detail: with chronic kidney disease Chronic kidney disease stage: stage 5, not on chronic dialysis Qualified Code(s): E11.22 - Type 2 diabetes mellitus with diabetic chronic kidney disease; N18.5 - Chronic kidney disease, stage 5; 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.4 - 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 (current) use of insulin (4) Leukocytosis Qualifiers: Leukocytosis type: other Qualified Code(s): D72.828 - Other elevated white blood cell count (6) Diabetes mellitus with foot ulcer Qualifiers: Diabetes mellitus type: type 2 Diabetes mellitus superintendent container terminal insulin use: with superintendent container terminal use Qualified Code(s): E11.621 - Type 2 diabetes mellitus with foot ulcer; L97.509 - Non-pressure chronic ulcer of other part of unspecified foot with unspecified severity; Z79.4 - termite 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 (current) use of insulin (7) CAD (coronary artery disease) Qualifiers: Coronary Disease-Associated Artery/Lesion type: bypass graft [place] vs. transplanted heart: [place] heart Associated angina: without angina Qualified Code(s): I25.810 - Atherosclerosis of coronary artery bypass graft(s) without angina pectoris (8) A-fib Qualifiers: Atrial fibrillation type: persistent Qualified Code(s): I48.1 - Persistent atrial fibrillation (10) UTI (urinary tract infection) Qualifiers: Urinary tract infection type: acute cystitis Hematuria presence: without hematuria Qualified Code(s): N30.00 - Acute cystitis without hematuria
--- NOTE | 2018-03-28 13:11 | Podiatry Progress Note ---
Date of Encounter: 03/28/18 Time of Encounter: 13:08 - Assessment and Plan (1) Gas gangrene Current Visit: Yes Status: Acute POD #3 GAEL/PVR, TCPO2 ordered and completed. Awaiting report. Preliminary report right GAEL 0.71 moderately diminished, left PVR moderately diminished. Patient dressing changed. Moderate amount of serosanguineous drainage on old dressing. Applied adaptic, 4X4 dry gauze, kerlex, and martin bandage. Will return to OR for washout and debridement on Tuesday or . Continue non-weight bearing status to left foot. Family at bedside and updated on plan. ID to follow for ATB. Appreciate input. Pathology pending. Wound culture of left foot returned protease and staph aureus. (2) Diabetes mellitus with foot ulcer Current Visit: Yes Status: Chronic Continue monitoring blood glucose levels in hospital and covering with sliding scale insulin. Currently running 200s on medium sliding scale. Primary to follow. Last hemoglobin A1c 9.2% on 08/21/14. Qualifiers: Qualified Code(s): E11.621 - Type 2 diabetes mellitus with foot ulcer; L97.509 - Non-pressure chronic ulcer of other part of unspecified foot with unspecified severity; Z79.4 - terminal makeup operator (current) use of insulin Subjective Principal diagnosis: Afib, left foot partial amputation Interval history: Post op day #3. Patient sitting in bed. Confused. Family at bedside. Denies pain. States she has been non-ambulatory. No new overnight events. Objective - Vital Signs Vital Signs: Vital Signs Temp Pulse Resp BP Pulse Ox 03/28/18 10:44 97.9 F 91 16 120/70 92 03/28/18 08:41 95 03/28/18 07:54 98.5 F 95 16 115/75 95 03/28/18 05:01 98.1 F 81 16 95/58 95 03/27/18 23:50 98.6 F 83 16 104/68 96 03/27/18 19:13 98.8 F 77 16 91/57 95 03/27/18 15:39 98.5 F 96 16 100/58 98 Intake and Output 03/27/18 03/28/18 03/28/18 23:59 07:59 15:59 Intake Total 200 / 200 1040 / 1040 840 / 840 Output Total 200 / 200 Balance 200 / 200 840 / 840 840 / 840 Intake: IV Fluids 100 / 100 1040 / 1040 600 / 600 Heparin 25,000 UNIT/500 ML D5W 940 / 940 500 / 500 25,000 unit In 500 ml @ 14 UNIT /KG/HR 24.893 mls/hr IVC . Q20H6M [facility] Rx#:[id number] Zosyn 3.375 GM In 0.9 % Sodium 100 / 100 100 / 100 100 / 100 Chloride (Mini-Bag +) 100 ML @ 25 mls/hr IVPB Q8HR [facility] Rx#: [id number] Oral 100 / 100 240 / 240 Output: Urine 200 / 200 Other: Meal Breakfast Percent of Meal Consumed 100% Stool Size Large Stool Consistency soft Stool Color Brown Pale # Voids 1 1 # Urine Diapers 1 # Bowel Movements 1 Weight 88.907 kg Blood Glucose* 148 196 202 - Exam Exam: Amputation site open. Sutures noted to lateral and medial aspect of stump are well approximated. Midfoot opening from amputation. Tunneling noted. Distal suture removed 1. Surrounding tissue dusky and purple in color. Moderate amount of serosanguineous drainage noted Incision: Present: draining, red, swollen - Lab Result Diagrams: 03/28/18 03:23 03/28/18 03:23 Labs: Abnormal lab results WBC 15.0 K/mcL (4.3-11.1) H 03/28/18 03:23 RBC 2.73 M/mcL (3.82-4.97) L 03/28/18 03:23 Hgb 7.9 g/dL (11.5-15.4) L 03/28/18 03:23 Hct 23.6 % (35.3-44.9) L 03/28/18 03:23 RDW 15.2 % (11.5-14.5) H 03/28/18 03:23 MPV 12.6 fL (9.4-12.4) H 03/28/18 03:23 Neutrophils # 10.4 K/mcL (1.6-8.9) H 03/28/18 03:23 Platelet Estimate Increased (Normal) H 03/25/18 14:58 ESR >= 130 mm/hr (0-15) H 03/25/18 14:58 PT 14.4 Seconds (9.4-12.1) H 03/26/18 13:08 Chloride 112 mEq/L (98-107) H 03/28/18 03:23 Carbon Dioxide 16 mEq/L (23-29) L 03/28/18 03:23 BUN 72 mg/dL (8-23) H 03/28/18 03:23 Creatinine 2.10 mg/dL (0.60-1.20) H 03/28/18 03:23 Est GFR ( Amer) 27 (> 60) L 03/28/18 03:23 Est GFR (Non-Af Amer) 23 (> 60) L 03/28/18 03:23 BUN/Creatinine Ratio 34 (6-26) H 03/28/18 03:23 Glucose 161 mg/dL (70-105) H 03/28/18 03:23 POC Glucose 196 mg/dL (70-99) H 03/28/18 07:57 Calculated Osmolality 309 (280-300) H 03/28/18 03:23 Calcium 8.0 mg/dL (8.6-10.3) L 03/28/18 03:23 Iron 31 mcg/dL (50-170) L 03/28/18 03:23 Transferrin 105 mg/dL (203-362) L 03/28/18 03:23 Creatine Kinase 25 Units/L (30-223) L 03/25/18 14:58 C-Reactive Protein 232 mg/L (Less than 10) H 03/25/18 14:58 Urine Clarity Turbid (Clear) A 03/27/18 12:27 Urine Blood Small (Negative) H 03/27/18 12:27 Ur Leukocyte Esterase Large (Negative) H 03/27/18 12:27 Urine Microscopic WBC TNTC per hpf (0-3) H 03/27/18 12:27 Ur Squamous Epith Cells Moderate per lpf (None-Few) H 03/27/18 12:27 Urine Yeast Many per hpf (None Seen) H 03/27/18 12:27 Ur Culture Indicated? YES (NO) A 03/27/18 12:27 Vancomycin Trough 17 mcg/mL (5-10) H 03/28/18 03:23 Staphylococcus sp PCR DETECTED (Not Detect) A 03/25/18 15: Staph aureus (PCR) DETECTED (Not Detect) A 03/25/18 15:06 Microbiology, Last 48 Hours 03/27/18 12:27 Urine Culture - Final Urine,Clean Catch No growth. 03/25/18 18:56 Anaerobic Culture - Preliminary Left Foot At this time, no anaerobic growth is present. The culture will be finalized after 5 days of incubation. 03/25/18 18:56 Wound Culture - Preliminary Left Foot Proteus mirabilis Staphylococcus aureus 03/25/18 18:56 Gram Stain - Final Left Foot 03/27/18 02:53 Blood Culture - Preliminary Peripheral Venipuncture Culture is incubating and being continuously monitored for growth. Final report to follow. 03/27/18 02:53 Blood Culture - Preliminary Peripheral Venipuncture Culture is incubating and being continuously monitored for growth. Final report to follow. Consult Discharge Plan - Plan Referrals: Isabelle Joseph CNP [Primary Care Provider] -
--- NOTE | 2018-03-28 13:51 | Infectious Disease Progress No ---
Date of Encounter: 03/28/18 Time of Encounter: 10:10 - Assessment and Plan (1) Leukocytosis Current Visit: Yes Status: Acute WBC elevated at 26 on admission. Likely secondary to left foot infection and possible UTI. Improved. Blood cultures drawn 03/25/18 are positive 1/2 sets for MSSA and 1/2 sets for S. anginosus. Repeat blood cultures drawn 03/27/18 are pending x 2 sets. Qualifiers: Leukocytosis type: other Qualified Code(s): D72.828 - Other elevated white blood cell count (2) Bacteremia Current Visit: Yes Status: Acute Causative organism: MSSA and S. anginosus. Not sure if the S. anginosus is a true infection vs. contaminant since no other cultures are positive for this. Source: likely the left foot ulcer. Blood cultures drawn 03/25/18 are positive 1/2 sets for MSSA and 1/2 sets for S. anginosus. Repeat blood cultures drawn 03/27/18 are pending x 2 sets. Complicated due to the presence of osteomyelitis. No endocarditis stigmata noted on exam. The patient has two minor Modified [place]'s Criteria. Await final ID and sensitivities. Recommend TTE prior to discharge. May need SUDEEP. Discontinue Zosyn. Start Ancef 2 grams IV Q8H. Duration of treatment depends on the clinical picture. Monitor renal function and dose-adjust antibiotics. (3) Gas gangrene Current Visit: Yes Status: Acute Location: Left foot. Etiology unclear: DFU vs. animal bite/scratch vs. other. Causative organism: Polymicrobial. Wound swab culture positive for MSSA. Intra- op cultures are positive for MSSA and P. mirabilis. CT of the left lower extremity showed extensive soft tissue gas throughout the forefoot extending up to the ankle. Podiatry consulted. 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 Previously-placed left foot hardware was removed. Operative note reviewed. Intra-op cultures as above. Pathology pending. Pre-op ESR >130 with CRP 232. CK level 25. Wound care and activity restrictions per the Podiatry team. Discontinue Zosyn. Start Ancef 2 grams IV Q8H. Duration of treatment depends on the clinical picture, but likely 6-8 weeks of IV antibiotics if the foot is deemed salvageable. Monitor renal function and dose-adjust antibiotics. Avoid insertion of long-term IV access until repeat blood cultures are negative x 48 hours. Further OPAT recommendations to follow pending clinical and culture outcomes. We will continue to follow. (4) Ulcer of foot with necrosis of muscle Current Visit: Yes Status: Acute Location: Plantar aspect of the left foot. Etiology unclear. Podiatry consulted and following. Antibiotic recommendations as above. 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 Patient has had some weakness and confusion. Urinalysis positive for pyuria, but urine culture was negative. Qualifiers: Urinary tract infection type: acute cystitis Hematuria presence: without hematuria Qualified Code(s): N30.00 - Acute cystitis without hematuria (6) CKD (chronic kidney disease) stage 5, GFR less than 15 ml/min Current Visit: No Status: Chronic (7) Insulin dependent diabetes mellitus Current Visit: No Status: Chronic (8) CAD (coronary artery disease) Current Visit: Yes Status: Chronic Qualifiers: Coronary Disease-Associated Artery/Lesion type: bypass graft [place] vs. transplanted heart: [place] heart Associated angina: without angina Qualified Code(s): I25.810 - Atherosclerosis of coronary artery bypass graft(s) without angina pectoris (9) A-fib Current Visit: Yes Status: Acute Cardiology consulted. Qualifiers: Atrial fibrillation type: persistent Qualified Code(s): I48.1 - Persistent atrial fibrillation - Subjective Interval history: Patient seen and examined. No acute events noted overnight. Patient appears improved today. Denies fevers, chills, or rigors. Denies chest pain, shortness of breath, or cough. Denies nausea, vomiting, or diarrhea. Denies abdominal pain or urinary complaints. Denies oral thrush or skin rashes. Reports mild pain at the surgical site. Per family, patient's mental status is improved. Infect Dis PN-Objective Data - Labs CBC & Chem 7: 03/28/18 03:23 03/28/18 03:23 Labs: Laboratory Results - last 24 hr 03/27/18 03/27/18 03/27/18 12:27 16:25 19:39 WBC RBC Hgb Hct MCV MCH MCHC RDW Plt Count MPV Immature Gran % Seg Neutrophils % Lymphocytes % Monocytes % Eosinophils % Basophils % Neutrophils # Lymphocytes # Monocytes # Eosinophils # Basophils # Heparin Anti-Xa, Unfract Sodium Potassium Chloride Carbon Dioxide BUN Creatinine Est GFR ( Amer) Est GFR (Non-Af Amer) BUN/Creatinine Ratio Glucose POC Glucose 203 H 148 H Calculated Osmolality Calcium Iron % Saturation Transferrin Urine Microscopic RBC 0-3 Urine Microscopic WBC TNTC H Ur Squamous Epith Cells Moderate H Urine Bacteria None Seen Hyaline Casts None Seen Urine Yeast Many H Ur Culture Indicated? YES A Vancomycin Trough Blood Type Antibody Screen Crossmatch 03/28/18 03/28/18 03/28/18 03:23 03:23 03:23 WBC 15.0 H RBC 2.73 L Hgb 7.9 L Hct 23.6 L MCV 86.4 MCH 28.9 MCHC 33.5 RDW 15.2 H Plt Count 358 MPV 12.6 H Immature Gran % 1.2 Seg Neutrophils % 69.4 Lymphocytes % 16.0 Monocytes % 8.9 Eosinophils % 4.2 Basophils % 0.3 Neutrophils # 10.4 H Lymphocytes # 2.4 Monocytes # 1.3 Eosinophils # 0.6 Basophils # 0.1 Heparin Anti-Xa, Unfract 0.70 Sodium Potassium Chloride Carbon Dioxide BUN Creatinine Est GFR ( Amer) Est GFR (Non-Af Amer) BUN/Creatinine Ratio Glucose POC Glucose Calculated Osmolality Calcium Iron % Saturation Transferrin Urine Microscopic RBC Urine Microscopic WBC Ur Squamous Epith Cells Urine Bacteria Hyaline Casts Urine Yeast Ur Culture Indicated? Vancomycin Trough 17 H Blood Type Antibody Screen Crossmatch 03/28/18 03/28/18 03/28/18 03:23 07:57 12:30 WBC RBC Hgb Hct MCV MCH MCHC RDW Plt Count MPV Immature Gran % Seg Neutrophils % Lymphocytes % Monocytes % Eosinophils % Basophils % Neutrophils # Lymphocytes # Monocytes # Eosinophils # Basophils # Heparin Anti-Xa, Unfract Sodium 137 Potassium 4.8 Chloride 112 H Carbon Dioxide 16 L BUN 72 H Creatinine 2.10 H Est GFR ( Amer) 27 L Est GFR (Non-Af Amer) 23 L BUN/Creatinine Ratio 34 H Glucose 161 H POC Glucose 196 H Calculated Osmolality 309 H Calcium 8.0 L Iron 31 L % Saturation 21 Transferrin 105 L Urine Microscopic RBC Urine Microscopic WBC Ur Squamous Epith Cells Urine Bacteria Hyaline Casts Urine Yeast Ur Culture Indicated? Vancomycin Trough Blood Type O POSITIVE Antibody Screen NEGATIVE Crossmatch See Detail Cultures: Cultures 03/27/18 12:27 Urine Culture - Final Urine,Clean Catch No growth. 03/25/18 18:56 Anaerobic Culture - Preliminary Left Foot At this time, no anaerobic growth is present. The culture will be finalized after 5 days of incubation. 03/25/18 18:56 Wound Culture - Preliminary Left Foot Proteus mirabilis Staphylococcus aureus 03/25/18 18:56 Gram Stain - Final Left Foot 03/27/18 02:53 Blood Culture - Preliminary Peripheral Venipuncture Culture is incubating and being continuously monitored for growth. Final report to follow. 03/27/18 02:53 Blood Culture - Preliminary Peripheral Venipuncture Culture is incubating and being continuously monitored for growth. Final report to follow. Serology 03/27/18 Range/Units 12:27 Urine Color Dark Yellow (Yellow) Urine Clarity Turbid A (Clear) Urine pH 5.5 (5.0-8.0) pH Units Ur Specific [place] 1.020 (1.010-1.025) Urine Protein Trace (Neg-Trace) mg/dL Urine Glucose (UA) Normal (Normal) mg/dL Urine Ketones Negative (Negative) mg/dL Urine Blood Small H (Negative) Urine Nitrite Negative (Negative) Urine Bilirubin Negative (Negative) Urine Urobilinogen Normal (Normal) mg/dL Ur Leukocyte Esterase Large H (Negative) Urine Microscopic RBC 0-3 (0-3) per hpf Urine Microscopic WBC TNTC H (0-3) per hpf Ur Squamous Epith Cells Moderate H (None-Few) per lpf Urine Bacteria None Seen (None-Few) per hpf Hyaline Casts None Seen (None-Few) per lpf Urine Yeast Many H (None Seen) per hpf Ur Culture Indicated? YES A (NO) Exam - Constitutional Vitals: Temp Pulse Resp BP Pulse Ox 97.9 F 91 16 120/70 92 03/28/18 10:44 03/28/18 10:44 03/28/18 10:44 03/28/18 10:44 03/28/18 10:44 General appearance: cooperative, no acute distress, obese - Head Head exam: Present: atraumatic, normal inspection, normocephalic - Eye Eye exam: Absent: normal appearance (left eye cloudy and atrophied.) Additional comments: No subconjunctival hemorrhage noted. - ENT ENT exam: Present: mucous membranes moist - Neck Neck exam: Present: normal inspection - Respiratory Respiratory exam: Present: CTAB. Absent: rales, respiratory distress, rhonchi, wheezes - Cardiovascular Cardiovascular exam: Present: RRR, +S1, +S2 - GI/Abdominal GI/Abdominal exam: Present: normal bowel sounds, soft. Absent: distended, tenderness - Extremities Exam Extremities exam: Present: tenderness (left foot). Absent: normal inspection ( Left foot dressing C/D/I without redness up the leg.), pedal edema Additional comments: No endocarditis stigmata noted. - Neurological Exam Neurological exam: Present: alert, oriented X3, no focal deficits - Psychiatric Psychiatric exam: Present: normal affect, normal mood - Skin Skin exam: Present: dry, intact, normal color, warm Consult Discharge Plan - Plan Referrals: Isabelle Joseph, ELECTRONIC ASSEMBLER GROUP LEADER [Primary Care Provider] - - Attending Attestation I examined this patient and my medical decision-making was reviewed with the Resident Physician. I agree with the documented findings, disposition and treatment plan as described except to the extent set forth below.
[2018-03-28] MEDS: ceFAZolin 1,000 MG in Water for inj. (sterile) 20 ML 10 ML IVP SCH (16:42)
[2018-03-28] MEDS ORDERED: Ondansetron 4 MG/2 ML VIAL IVP PRN (18:34)
--- NOTE | 2018-03-28 20:24 | Anesthesia Evaluation PreOp ---
Date of Encounter: 03/28/18 Time of Encounter: 20:22 - Past History Planned Operation: Left Foot Irrigation and Washout Cardiac History: TX (TX x3), HTN, Hyperlipidemia, Arrhythmia (A-Fib), Cardiac Surgery (CABG x 4 in 2000) Pulmonary History: Denies Any Significant HX RESIDENT CARE AIDE History: Other (nueropathy bilateral feet) Other Medical History: Renal (CKD), Diabetes Type II Anesthesia History: No Prior Anesthetic Complications, Past Anesthesia Alcohol Use: none Drug use: none Medications and Allergies Dorzolamide/Timolol [Cosopt] 1 drop OP BID 02/23/17 [History] Insulin NPH Hum/Reg Insulin Hm [Humulin 70-30 Vial] 10 - 15 unit SQ BID [History] Simvastatin [Zocor] 40 mg PO HS 02/23/17 [History] glipiZIDE [Glipizide] 10 mg PO BID 02/23/17 [History] Ergocalciferol (VITAMIN D2) [Vitamin D2] 50,000 unit PO QWEEK 03/25/18 [History] amLODIPine [Norvasc] 5 mg PO DAILY 03/25/18 [History] Lisinopril-HCTZ 10-12.5 [Prinzide 10-12.5] 1 tab PO DAILY 03/28/18 [History] 3 Allergy/AdvReac Type Severity Reaction Status Date / Time lidocaine Allergy See Verified 02/23/17 16:30 Comments - Meds/Allergy Pre-op Review Medications Reviewed: Yes Allergies Reviewed: Yes Beta Blockers on Current Med List: No Anesthesia Results - Labs 03/28/18 03:23 03/28/18 03:23 - Imaging EKG: report reviewed (03/25/2028 Atrial fibrillation Left bundle branch block) Additional studies: 03/26/2018 Echo Impressions: LVEF 45%. Normal LV chamber size, wall thickness. Mild segmental left ventricular systolic dysfunction. Indeterminate diastolic function. Normal right ventricular structure and function. Mild aortic sclerosis. Mean gradient 11 mmHg. Mild mitral stenosis. Mean gradient 5 mmHg. Mild tricuspid regurgitation. Mitral Valve Peak Velocity 2.00 m/sec Mean Velocity: .93 m/sec Peak Grad: 16.00 mmHg Mean Grad: 5.00 mmHg Pressure Time: 76.00 msec Valve Area: 1.38 cm2 Peak E: 1.65 m/sec Peak E' Lat Fabrizio: 5.78 cm/s Peak E' Med Fabrizio: 4.12 cm/s E/E' Lat Ratio: 28.5 E/E' Med Ratio: 40 Anesthesia Exam Vital Signs/O2 Sat/Glucose, Most Recent Temp Pulse Resp BP Pulse Ox 98.7 F 83 16 119/71 97 03/28/18 18:55 03/28/18 18:55 03/28/18 18:55 03/28/18 18:55 03/28/18 18:55 Blood Glucose* 148 Height: 5'4''/1.63m Weight: 196 lbs/88.9 kg - HEENT Pupil (Motor): EOMI Mallampati: II Teeth: Poor dentition Oral Opening: Greater than 3 - RESIDENT CARE AIDE LOC: Oriented RESIDENT CARE AIDE Motor: Normal RUE, Normal LUE, Normal RLE, Normal LLE, Normal Face RESIDENT CARE AIDE Sensory: Normal: RUE, LUE, Face, Deficit: RLE, LLE - Cardiac Rhythm: Irregular Murmur: None - Pulmonary Breath Sounds: bilateral Clear Respiratory Effort: Symmetrical Anesthesia Assess/Plan ASA Score: 3 Modified [place] Scale for Level of Consciousness: Cooperative, oriented, and tranquil Anesthetic Plan: MAC Monitoring Plan: Standard Monitors
[2018-03-29] MEDS ORDERED: Ondansetron 4 MG/2 ML VIAL IVP SCH
[2018-03-29] MEDS: *HR* OxyCODONE Immed Rel 5 MG TABLET PO PRN ×2 (01:02→18:36)
[2018-03-29] MEDS: Acetaminophen 325 MG TABLET PO PRN (02:43)
[2018-03-29 03:43] LABS: Basophils # 0.1 K/mcL (0.0-0.2); Basophils % 0.4 %; Eosinophils # 0.5 K/mcL (0.0-0.6); Eosinophils % 3.1 %; Hematocrit 27.2 % (35.3-44.9); Hemoglobin 8.9 g/dL (11.5-15.4); Immature Granulocytes % 1.5 % (0-4); Lymphocytes # 2.5 K/mcL (0.6-4.6); Lymphocytes % 15.6 %; Mean Corpuscular HGB Conc 32.7 g/dL (31.6-35.5); Mean Corpuscular Hemoglobin 28.7 pg (28.0-33.3); Mean Corpuscular Volume 87.7 fL (83.0-100.0); Mean Platelet Volume 12.4 fL (9.4-12.4); Monocytes # 1.3 K/mcL (0.0-1.3); Monocytes % 8.5 %; Neutrophils # 11.1 K/mcL (1.6-8.9); Platelet Count 372 K/mcL (140-400); Red Cell Distribution Width 15.3 % (11.5-14.5); Segmented Neutrophils % 70.9 %
[2018-03-29 04:02] LABS: Calcium 8.3 mg/dL (8.6-10.3); Potassium 4.4 mEq/L (3.5-5.1)
[2018-03-29] MEDS: ceFAZolin 1,000 MG in Water for inj. (sterile) 20 ML 10 ML IVP SCH ×2 (04:25→16:45)
[2018-03-29] MEDS: Heparin 25,000 UNIT/500 ML D5W 25,000 UNIT/500 ML BAG IVC SCH (04:27)
--- NOTE | 2018-03-29 06:34 | Vascular/[facility] Progress Note ---
Date of Encounter: 03/28/18 Time of Encounter: 17:30 - Assessment and plan (1) Peripheral vascular disease Current Visit: Yes Status: Chronic The patient will require further debridement fo devitalized tissue by podiatry with posible wound closure or partial wound closure. Her TCPO2 levels are consistent with healing. She will continue with antibiotics. The patinet was discussed with Dr. Ayers. (2) Chronic kidney disease, stage IV (severe) Current Visit: Yes Status: Chronic (3) Insulin dependent diabetes mellitus Current Visit: No Status: Chronic (4) Diabetes mellitus with foot ulcer Current Visit: Yes Status: Chronic The patient was counseled regarding atherosclerotic risk factor reduction. 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 transplanted heart: [place] heart Associated angina: without angina Qualified Code(s): I25.810 - Atherosclerosis of coronary artery bypass graft(s) without angina pectoris (6) A-fib Current Visit: Yes Status: Acute Qualifiers: Atrial fibrillation type: persistent Qualified Code(s): I48.1 - Persistent atrial fibrillation - Subjective Interval history: The patient is without complaints. She is more alert today. She reports adequate pain control. She denies chest pain or shortness of breath. Vital Signs, Last 4 Hours Temp Pulse Resp BP Pulse Ox 03/29/18 03:49 98.5 F 83 16 112/68 95 - Physical Examination General: Present: Conversant Cardiac: Present: Reg Rate and Rhythm Lungs: Present: Normal Breath Sounds Neuro: Present: Alert and responsive, Motor nerves grossly intact, Sensory nerves grossly intact Vascular: Present: Normal capillary refill (right foot), Surgical incisions (left foot wound is banadged). Absent: Edema Abdomen: Present: Soft Skin: Present: No rashes noted on visualized skin Results 03/30/18 08:52 03/30/18 08:52 Lab Results, Last 24 hours 03/28/18 03/29/18 03/29/18 03:23 03:27 03:27 WBC 15.7 H Hgb 8.9 L Hct 27.2 L Plt Count 372 Sodium 137 140 Potassium 4.8 4.4 Chloride 112 H 114 H Carbon Dioxide 16 L 14 L BUN 72 H 65 H Creatinine 2.10 H 1.79 H Glucose 161 H 182 H Calcium 8.0 L 8.3 L Consult Discharge Plan - Plan Referrals: Isabelle Joseph, RECYCLING OPERATOR [Primary Care Provider] -
--- NOTE | 2018-03-29 07:55 | Podiatry Progress Note ---
Date of Encounter: 03/28/18 Time of Encounter: 17:00 - Assessment and Plan (1) Gas gangrene Current Visit: Yes Status: Acute seen by vascular surgery. if does not heal they may consider angiography or patient may require a below the knee amputation. Dr. Navarro and myself were in the room with the patient and family this evening and discussed plan of care. Discussed tomorrow bringing back to the OR for washout and debridement of non- viable tissue, possible application of wound vac. no guarantees made as to the outcome or that she would keep the rest of her left foot or the functionality of her foot. It was explained she could end up with an amputation of the leg. All questions answered. informed consent was signed. Stop hep drip by 10am. NPO after breakfast. Scheduled for OR. 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 sitting up in bed eating breakfast. pain controlled. daughter and bedside with patient. Objective - Vital Signs Vital Signs: Vital Signs Temp Pulse Resp BP Pulse Ox 03/29/18 06:57 97.6 F 85 16 133/73 94 03/29/18 03:49 98.5 F 83 16 112/68 95 03/28/18 23:49 98.0 F 86 17 126/60 95 03/28/18 18:55 98.7 F 83 16 119/71 97 03/28/18 17:21 97.7 F 93 16 104/64 95 03/28/18 14:52 97.8 F 76 16 102/53 97 03/28/18 14:37 98.0 F 82 14 101/63 98 03/28/18 10:44 97.9 F 91 16 120/70 92 03/28/18 08:41 95 03/28/18 07:54 98.5 F 95 16 115/75 95 Intake and Output 10/03/28/18 03/29/18 15:59 23:59 07:59 Intake Total 840 / 840 360 / 360 510 / 510 Output Total 200 / 200 Balance 840 / 840 360 / 360 310 / 310 Intake: IV Fluids 600 / 600 510 / 510 Heparin 25,000 UNIT/500 ML D5W 500 / 500 500 / 500 25,000 unit In 500 ml @ 14 UNIT /KG/HR 24.893 mls/hr IVC . Q20H6M [facility] Rx#:[id number] Ancef 1,000 MG In Water for inj . (sterile) 10 ML @ 200 mls/hr IVP Q12H [facility] Rx#:[id number] Zosyn 3.375 GM In 0.9 % Sodium 100 / 100 Chloride (Mini-Bag +) 100 ML @ 25 mls/hr IVPB Q8HR [facility] Rx#: [id number] Oral 240 / 240 Blood Product 0 / 0 350 / 350 Rbcs Leuko Poor As-1 Unit 0 / 0 350 / 350 [id number] Output: Urine 200 / 200 Other: Meal Breakfast Percent of Meal Consumed 100% Stool Size Large Stool Consistency soft Stool Color Brown Pale # Voids 1 1 # Bowel Movements 1 Blood Glucose* 160 148 166 - Exam Exam: non-viable tissue at the amputation stump. no active bleeding, no erythema. no purulence expressed. - Lab Result Diagrams: 03/29/18 03:27 03/29/18 03:27 Labs: Abnormal lab results WBC 15.7 K/mcL (4.3-11.1) H 03/29/18 03:27 RBC 3.10 M/mcL (3.82-4.97) L 03/29/18 03:27 Hgb 8.9 g/dL (11.5-15.4) L 03/29/18 03:27 Hct 27.2 % (35.3-44.9) L 03/29/18 03:27 RDW 15.3 % (11.5-14.5) H 03/29/18 03:27 Neutrophils # 11.1 K/mcL (1.6-8.9) H 03/29/18 03:27 Platelet Estimate Increased (Normal) H 03/25/18 14:58 ESR >= 130 mm/hr (0-15) H 03/25/18 14:58 PT 14.4 Seconds (9.4-12.1) H 03/26/18 13:08 Chloride 114 mEq/L (98-107) H 03/29/18 03:27 Carbon Dioxide 14 mEq/L (23-29) L 03/29/18 03:27 BUN 65 mg/dL (8-23) H 03/29/18 03:27 Creatinine 1.79 mg/dL (0.60-1.20) H 03/29/18 03:27 Est GFR ( Amer) 33 (> 60) L 03/29/18 03:27 Est GFR (Non-Af Amer) 27 (> 60) L 03/29/18 03:27 BUN/Creatinine Ratio 36 (6-26) H 03/29/18 03:27 Glucose 182 mg/dL (70-105) H 03/29/18 03:27 POC Glucose 202 mg/dL (70-99) H 03/28/18 12:13 Calculated Osmolality 313 (280-300) H 03/29/18 03:27 Calcium 8.3 mg/dL (8.6-10.3) L 03/29/18 03:27 Iron 31 mcg/dL (50-170) L 03/28/18 03:23 Transferrin 105 mg/dL (203-362) L 03/28/18 03:23 Creatine Kinase 25 Units/L (30-223) L 03/25/18 14:58 C-Reactive Protein 232 mg/L (Less than 10) H 03/25/18 14:58 Urine Clarity Turbid (Clear) A 03/27/18 12:27 Urine Blood Small (Negative) H 03/27/18 12:27 Ur Leukocyte Esterase Large (Negative) H 03/27/18 12:27 Urine Microscopic WBC TNTC per hpf (0-3) H 03/27/18 12:27 Ur Squamous Epith Cells Moderate per lpf (None-Few) H 03/27/18 12:27 Urine Yeast Many per hpf (None Seen) H 03/27/18 12:27 Ur Culture Indicated? YES (NO) A 03/27/18 12:27 Stool Occult Blood Positive (Negative) A 03/28/18 12:05 Vancomycin Trough 17 mcg/mL (5-10) H 03/28/18 03:23 Staphylococcus sp PCR DETECTED (Not Detect) A 03/25/18 15:06 Staph aureus (PCR) DETECTED (Not Detect) A 03/25/18 15:06 Microbiology, Last 48 Hours 03/27/18 12:27 Urine Culture - Final Urine,Clean Catch No growth. 03/25/18 18:56 Anaerobic Culture - Preliminary Left Foot At this time, no anaerobic growth is present. The culture will be finalized after 5 days of incubation. 03/25/18 18:56 Wound Culture - Preliminary Left Foot Proteus mirabilis Staphylococcus aureus 03/25/18 18:56 Gram Stain - Final Left Foot 03/27/18 02:53 Blood Culture - Preliminary Peripheral Venipuncture Culture is incubating and being continuously monitored for growth. Final report to follow. 03/27/18 02:53 Blood Culture - Preliminary Peripheral Venipuncture Culture is incubating and being continuously monitored for growth. Final report to follow. Consult Discharge Plan - Plan Referrals: Isabelle Joseph CNP [Primary Care Provider] -
--- NOTE | 2018-03-29 08:12 | Internal Med Progress Note ---
Hospitalist Progress Note - Encounter Date of Encounter: 03/29/18 Time of Encounter: 08:11 - Subjective Interval History: Patient seen and examined this morning. Pain overnight, received oxycodone. Drowsy still this morning. C/o Lt foot pain. Daughter at bedside. Occasionally confused per daughter but more alert than on presentation. Denies any sob, cp, abdominal pain, N/V/D. Told to be NPO per anesthesiologist. - Exam Vitals: Temp Pulse Resp BP Pulse Ox 97.6 F 85 16 133/73 94 03/29/18 06:57 03/29/18 06:57 03/29/18 06:57 03/29/18 06:57 03/29/18 06:57 Exam: Gen: AO x 2, in NAD HEENT: NC/AT, left eye blind Neck: Supple, no JVD Lungs: CTA b/l, No adventitious lung sounds Heart: Irregularly irregular rhythm, S1,S2, no MRG Abd: Soft, mild tenderness on RLQ w/o rebound/guarding. Ext: Left foot s/p surgery, well dressed. Neuro: decreased sensation both legs. - Assessment and Plan (1) CKD (chronic kidney disease) stage 5, GFR less than 15 ml/min Current Visit: No Status: Chronic (2) DVT prophylaxis Current Visit: No Status: Acute (3) Diabetes Current Visit: No Status: Acute (4) Leukocytosis Current Visit: Yes Status: Acute (5) Gas gangrene Current Visit: Yes Status: Acute (6) Diabetes mellitus with foot ulcer Current Visit: Yes Status: Chronic (7) CAD (coronary artery disease) Current Visit: Yes Status: Chronic (8) A-fib Current Visit: Yes Status: Acute (9) Bacteremia Current Visit: Yes Status: Acute (10) UTI (urinary tract infection) Current Visit: Yes Status: Ruled-out - Summary of Assessment and Plan Summary of Assessment and Plan: Diabetes mellitus with Lt foot ulcer and gas gangrene - Severe gas gangrene. Not meet criteria for sepsis. Lactate 0.8. - S/P partial lt foot amputation, I/D by podiatry. Leukocytosis improving. - Was started Vanco, zosyn, and Clindamycin. Vanc and clindamycin stopped. Wound culture and blood culture with MSSA and Proteus pansensitive. Now switched to cefazolin 1g q12 per ID. - Will need further debridement and washout per podiatry. - vascular following. May consider angiography if not improving and my need BKA. - Plan for washout and debridement and possible wound vac today. Stop heparin 6 hr before surgery. c/w NPO status. New A-fib - Incidentally found in ER. Pt denies hx of A Fib. HR 90s. - c/w heparin drip started for AC. Will switch to oral on DC and f/u outpatient with cardio. - HR is well controlled. BB or cardizem held due to low B. IV prn metoprolol - Echo shows LVEF 45%, no significant valve disease. - cardio following. - Will hold heparin 6 hr before the surgery. Anemia - Baseline of 9-10. Possible component of concentration with bacteremia, anemia of chronic dz and CKD - Started on Heparin for afib. stool occult positive. no h/o Gi bleed. Colonoscopy history Unknown - s/p 1 PRBC given CAD and plan for surgery with appropriate response - Will consult GI given pt will be discharged on anticoagulation. CKD -Cr is about at her baseline. CAD - No chest pain. Cont home meds. Bacteremia - 2/2 Blood culture and wound positive for 03/25/18 for MSSA . - On zosyn. Will likely switch to cefazolin - repeat blood culture 03/27/18 NGTD. - ID following. UTI - C/O RLQ pain, CT abd/pelvis shows ? cystitis, UA shows ? UTI. - Pt is on broad spectrum Abx - urine culture NGTD. DVT prophylaxis - Heparin SC - Time Spent with Patient Total time spent is greater than 50% in coordination of care (as documented) at patient's floor/unit and/or counseling patient: Internal Medicine: Result - Labs CBC & Chem 7: 03/29/18 03:27 03/29/18 03:27 Labs: Short CBC 03/29/18 Range/Units 03:27 WBC 15.7 H (4.3-11.1) K/mcL Hgb 8.9 L (11.5-15.4) g/dL Hct 27.2 L (35.3-44.9) % Plt Count 372 (140-400) K/mcL Neutrophils # 11.1 H (1.6-8.9) K/mcL BMP 03/28/18 03/29/18 03:23 03:27 Sodium 137 140 Potassium 4.8 4.4 Chloride 112 H 114 H Carbon Dioxide 16 L 14 L BUN 72 H 65 H Creatinine 2.10 H 1.79 H Glucose 161 H 182 H Calcium 8.0 L 8.3 L - ABG Interpretation ABG results: PT/INR, D-dimer PT 14.4 Seconds (9.4-12.1) H 03/26/18 13:08 Consult Discharge Plan - Plan Referrals: Isabelle Joseph, HOST COORDINATOR [Primary Care Provider] - (3) Diabetes Qualifiers: Diabetes mellitus type: type 2 Diabetes mellitus skilled nursing insulin use: with skilled nursing use Diabetes mellitus complication status: with kidney complications Diabetes mellitus complication detail: with chronic kidney disease Chronic kidney disease stage: stage 5, not on chronic dialysis Qualified Code(s): E11.22 - Type 2 diabetes mellitus with diabetic chronic kidney disease; N18.5 - Chronic kidney disease, stage 5; Z79.4 - [facility] (current) use of insulin (4) Leukocytosis Qualifiers: Leukocytosis type: other Qualified Code(s): D72.828 - Other elevated white blood cell count (6) Diabetes mellitus with foot ulcer Qualifiers: Diabetes mellitus type: type 2 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 transplanted heart: [place] heart Associated angina: without angina Qualified Code(s): I25.810 - Atherosclerosis of coronary artery bypass graft(s) without angina pectoris (8) A-fib Qualifiers: Atrial fibrillation type: persistent Qualified Code(s): I48.1 - Persistent atrial fibrillation (10) UTI (urinary tract infection) Qualifiers: Urinary tract infection type: acute cystitis Hematuria presence: without hematuria Qualified Code(s): N30.00 - Acute cystitis without hematuria
[2018-03-29] MEDS: Nystatin POWDER 30 GM BOTTLE TP SCH ×3 (08:13→21:22)
[2018-03-29] MEDS: Dorzolamide/Timolol OPTH 10 ML BOTTLE RIGHT EYE SCH ×2 (08:13→21:21)
[2018-03-29] MEDS: Lactobacillus 1 EACH CAP.SPRINK PO SCH (08:17)
[2018-03-29] MEDS: Insulin NPH/REG 70/30 100 UNIT/ML (x5UNIT) SQ SCH (08:18)
[2018-03-29] MEDS: Insulin LISPRO 300 UNITS/3 ML VIAL SQ SCH ×3 (08:18→21:49)
--- NOTE | 2018-03-29 11:15 | Gastroenterology Consult Note ---
<Kim Urban - Last Filed: 03/29/18 11:13> Date of Encounter: 03/29/18 Time of Encounter: 09:10 - Assessment and plan (1) Anemia Current Visit: No Status: Acute Assessment and plan: Pt is status post partial amputation of left foot. She has anemia and positive hemoccult. She had colonoscopy last year that showed hemorrhoids. She denies jimbo bleeding, no need for repeat colonoscopy at this time. Will plan for eGD tomorrow to rule out stress induced gastric ulcers, heparin drip will need held for 6 hours prior. She has low iron, will check ferritin, folate and b 12, she may have anemia or chronic disease, she has a history of chronic kidney disease. Qualifiers: Anemia type: iron deficiency Qualified Code(s): D50.8 - Other iron deficiency anemias (2) Gas gangrene Current Visit: Yes Status: Acute - Time Spent With Patient Total time spent is greater than 50% in coordination of care (as documented) at patient's floor/unit and/or counseling patient: GI History of Present Illness - Data of Consult Patient: known to practice within the last 3 years Consult date: 03/29/18 Requesting Physician: Nestor Cordoba MD - Consult Narrative Reason for consult: anemia, hemoccult positive History of present illness: Ms. Kaplan is a 78 year old female with long time DM present to ER for right foot infection. PMH is significant for DM, CKD, CAD s/p CABG, s/p splenectomy since childhood. Pt has severe DM neuropathy and has lost sensation on both feet. Not sure how long the wound be there but the thought about two weeks. Pt has lower fever several days ago with whole body weak. With dizziness and mild nausea. Today they found the big wound on left foot with skin color change. Pt report to ER physicians that her dog licked her foot but her and she told me that the dog is from her daughter and run away from her house about 1 month ago. In ER, CT legs shows necrotic tissue with gas. Pt's wound had foul smell. She is status post partial left foot amputation. She has been on a heparin drip. Hemoglobin has dropped from 10.7 on admission to 7.9 yesterday she received 1 unit packed red blood cells and hemoglobin today is 8.9. She denies any black or jimbo bloody stools but Hemoccult was positive. She does complain of some upper epigastric pain and occasional nausea without vomiting. She has chronic GERD. She takes Aleve as needed for pain at home. colonoscopy: 02/27 (Dr Sol) internal hemorrhoids, diverticulosis. EGD: denies NSAIDS: aleve at home Anticoagulants: heparin drip 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, blind left eye Psychiatric history: no psych history - Past Surgical History Surgical History: appendectomy, coronary bypass (CABG), orthopedic, other, splenectomy Additional surgical history: broke left foot (screws in left foot) - Social History Smoking Status: Never smoker Smokeless Tobacco Status: No Alcohol use: none Drug use: none - Family History Mother Living Status: Hx Family Cardiac Disorders: No Hx Family Respiratory Disorders: No Hx Family Cancer: Yes (Uterine Cancer) Hx Family GI Disorders: No Hx Family Endocrine Disorder: No Hx Family Neuromuscular Disorders: No Hx Family Neurologic Disorders: No Hx Family HEENT Disorders: No Hx Family Autoimmune Disorders: No Father History Unknown: Yes Adopted: No Living Status: Hx Family Cancer: Yes Review of Systems: GI: as per [place] GENERAL: see hpi EYES: denies yellow discoloration ENT: denies pain with swallowing or difficulty swallowing CARDIO: denies chest pain, palpitations RESP: Shortness of breath with exertion : denies change in color of urine NEURO: weakness HEME: Denies any bruising MS: chronic back and joint pain. DERM: see HPI PSYCH: Denies history of anxiety or depression - Constitutional Vitals: Temp Pulse Resp BP Pulse Ox 97.6 F 85 16 133/73 94 03/29/18 06:57 03/29/18 06:57 03/29/18 06:57 03/29/18 06:57 03/29/18 06:57 Exam: CONSTITUTIONAL:~drowsy but arousable, no acute distress.~HEAD:~normocephalic.~ EYES:~no jaundice.~NECK:~no obvious swelling.~HEART:~regular rate and rhythm, no murmurs.~LUNGS:~bilateral fair air entry.~ABDOMEN:~non distended, soft, non tender, no masses palpable, no organomegaly.~RECTAL EXAM:~Deferred.~EXTREMITIES: ~dressing LLE, no edema noted.~SKIN:~pallor notedno stigmata of chronic liver disease.~NEUROLOGIC:~no obvious focal defect.~~~~ Results - Labs CBC & Chem 7: 03/29/18 03:27 03/29/18 03:27 Labs: Last Result ESR >= 130 mm/hr (0-15) H 03/25/18 14:58 Calcium 8.3 mg/dL (8.6-10.3) L 03/29/18 03:27 Iron 31 mcg/dL (50-170) L 03/28/18 03:23 % Saturation 21 % (15-50) 03/28/18 03:23 Transferrin 105 mg/dL (203-362) L 03/28/18 03:23 C-Reactive Protein 232 mg/L (Less than 10) H 03/25/18 14:58 Stool Occult Blood Positive (Negative) A 03/28/18 12:05 Entire Visit Hgb 8.9 g/dL (11.5-15.4) L 03/29/18 03:27 Hct 27.2 % (35.3-44.9) L 03/29/18 03:27 PT 14.4 Seconds (9.4-12.1) H 03/26/18 13:08 E. coli (PCR) Not Detected (Not Detect) 03/25/18 15:06 - ABG ABG results: PT/INR, D-dimer PT 14.4 Seconds (9.4-12.1) H 03/26/18 13:08 Consult Discharge Plan - Plan Referrals: Isabelle Joseph, GEODETIC COMPUTATOR [Primary Care Provider] - <Bobby Todd - Last Filed: 03/29/18 17:46> Date of Encounter: 03/29/18 Time of Encounter: 14:40 - Time Spent With Patient Total time spent is greater than 50% in coordination of care (as documented) at patient's floor/unit and/or counseling patient: GI History of Present Illness - Data of Consult Requesting Physician: Nestor Cordoba MD - Consult Narrative History of present illness: Ms. Kaplan is a 78 year old female - Constitutional Vitals: Temp Pulse Resp BP Pulse Ox 98.0 F 95 16 135/70 97 03/29/18 11:43 03/29/18 11:43 03/29/18 11:43 03/29/18 11:43 03/29/18 11:43 Results - Labs CBC & Chem 7: 03/29/18 03:27 03/29/18 03:27 Labs: Last Result ESR >= 130 mm/hr (0-15) H 03/25/18 14:58 Calcium 8.3 mg/dL (8.6-10.3) L 03/29/18 03:27 Iron 31 mcg/dL (50-170) L 03/28/18 03:23 % Saturation 21 % (15-50) 03/28/18 03:23 Transferrin 105 mg/dL (203-362) L 03/28/18 03:23 Ferritin 293 ng/mL (10-120) H 03/29/18 12:12 C-Reactive Protein 232 mg/L (Less than 10) H 03/25/18 14:58 Vitamin B12 1097 pg/mL (250-1100) 03/29/18 12:12 Folate 9.8 ng/mL (3.0-16.0) 03/29/18 12:12 Stool Occult Blood Positive (Negative) A 03/28/18 12:05 Entire Visit Hgb 8.9 g/dL (11.5-15.4) L 03/29/18 03:27 Hct 27.2 % (35.3-44.9) L 03/29/18 03:27 PT 14.4 Seconds (9.4-12.1) H 03/26/18 13:08 Ferritin 293 ng/mL (10-120) H 03/29/18 12:12 Folate 9.8 ng/mL (3.0-16.0) 03/29/18 12:12 E. coli (PCR) Not Detected (Not Detect) 03/25/18 15:06 - ABG ABG results: PT/INR, D-dimer PT 14.4 Seconds (9.4-12.1) H 03/26/18 13:08 - Attending Attestation I have personally performed a face to face evaluation on this patient. I have reviewed and agree with the care plan. History and Exam by me shows: Patient seen. Currently denies any abdominal pain denies any blood in the stool. On examination abdomen is benign. Assessment: Patient 78-year-old female with anemia with positive stool occult blood had a colonoscopy done last year in February. Recommendation: We will do an EGD to make sure patient does not have any gastritis or stress-induced ulcer which could be causing her anemia
--- NOTE | 2018-03-29 11:56 | Infectious Disease Progress No ---
Date of Encounter: 03/29/18 Time of Encounter: 11:54 - Assessment and Plan (1) Leukocytosis Current Visit: Yes Status: Acute WBC elevated at 26 on admission. Likely secondary to left foot infection and possible UTI. Improved. Blood cultures drawn 03/25/18 are positive 1/2 sets for MSSA and 1/2 sets for S. anginosus. Repeat blood cultures drawn 03/27/18 are NGTD x 2 sets. Qualifiers: Leukocytosis type: other Qualified Code(s): D72.828 - Other elevated white blood cell count (2) Bacteremia Current Visit: Yes Status: Acute Causative organism: MSSA and S. anginosus. Not sure if the S. anginosus is a true infection vs. contaminant since no other cultures are positive for this. Source: likely the left foot ulcer. Blood cultures drawn 03/25/18 are positive 1/2 sets for MSSA and 1/2 sets for S. anginosus. Repeat blood cultures drawn 03/27/18 are NGTD x 2 sets. Complicated due to the presence of osteomyelitis. No endocarditis stigmata noted on exam. The patient has two minor Modified [place]'s Criteria. TTE completed and negative for vegetation. May consider SUDEEP prior to discharge. Continue Ancef 1 gram IV Q24H, dose-adjusted for low CrCl. Duration of treatment depends on the clinical picture. Monitor renal function and dose-adjust antibiotics. (3) Gas gangrene Current Visit: Yes Status: Acute Location: Left foot. Etiology unclear: DFU vs. animal bite/scratch vs. other. Causative organism: Polymicrobial. Wound swab culture positive for MSSA. Intra- op cultures are positive for MSSA and P. mirabilis. CT of the left lower extremity showed extensive soft tissue gas throughout the forefoot extending up to the ankle. Podiatry consulted. 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 Previously-placed left foot hardware was removed. Operative note reviewed. Intra-op cultures as above. Pathology positive for OM with clear margins noted. Pre-op ESR >130 with CRP 232. CK level 25. Scheduled to go back to the OR later today. Wound care and activity restrictions per the Podiatry team. Continue Ancef 1 gram IV Q24H, dose-adjusted for diminished CrCl. Duration of treatment depends on the clinical picture, but likely 6-8 weeks of IV antibiotics if the foot is deemed salvageable. Monitor renal function and dose-adjust antibiotics. Avoid insertion of long-term IV access until repeat blood cultures are negative x 48 hours. Further OPAT recommendations to follow pending clinical and culture outcomes. We will continue to follow. (4) Ulcer of foot with necrosis of muscle Current Visit: Yes Status: Acute Location: Plantar aspect of the left foot. Etiology unclear. Podiatry consulted and following. Antibiotic recommendations as above. 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 Patient has had some weakness and confusion. Urinalysis positive for pyuria, but urine culture was negative. Qualifiers: Urinary tract infection type: acute cystitis Hematuria presence: without hematuria Qualified Code(s): N30.00 - Acute cystitis without hematuria (6) CKD (chronic kidney disease) stage 5, GFR less than 15 ml/min Current Visit: No Status: Chronic (7) Insulin dependent diabetes mellitus Current Visit: No Status: Chronic Recommend aggressive glucose monitoring and control to promote wound healing and prevent re-infection. Management per the primary team. (8) CAD (coronary artery disease) Current Visit: Yes Status: Chronic Qualifiers: Coronary Disease-Associated Artery/Lesion type: bypass graft [place] vs. transplanted heart: [place] heart Associated angina: without angina Qualified Code(s): I25.810 - Atherosclerosis of coronary artery bypass graft(s) without angina pectoris (9) A-fib Current Visit: Yes Status: Acute Cardiology consulted. Qualifiers: Atrial fibrillation type: persistent Qualified Code(s): I48.1 - Persistent atrial fibrillation (10) Rectal bleeding Current Visit: No Status: Acute FOBT +. Known history of hemorrhoids with last C-scope last year. GI consulted. (11) Peripheral vascular disease Current Visit: Yes Status: Chronic ABIs abnormal. TCPO2 cnsistent with healing. Vascular consulted. - Subjective Interval history: Patient seen and examined with family at the bedside. No acute events noted overnight. Patient appears improved today. Denies fevers, chills, or rigors. Denies chest pain, shortness of breath, or cough. Denies nausea, vomiting, or diarrhea. Denies abdominal pain or urinary complaints. Denies oral thrush or skin rashes. Reports mild pain at the surgical site. Per family, patient's mental status is improved. She is scheduled to go back to the OR later today. Infect Dis PN-Objective Data - Labs CBC & Chem 7: 03/29/18 03:27 03/29/18 03:27 Labs: Laboratory Results - last 24 hr 03/28/18 03/28/18 03/28/18 03:23 12:05 12:13 WBC RBC Hgb Hct MCV MCH MCHC RDW Plt Count MPV Immature Gran % Seg Neutrophils % Lymphocytes % Monocytes % Eosinophils % Basophils % Neutrophils # Lymphocytes # Monocytes # Eosinophils # Basophils # Heparin Anti-Xa, Unfract Sodium Potassium Chloride Carbon Dioxide BUN Creatinine Est GFR ( Amer) Est GFR (Non-Af Amer) BUN/Creatinine Ratio Glucose POC Glucose 202 H Calculated Osmolality Calcium Iron 31 L % Saturation 21 Transferrin 105 L Stool Occult Blood Positive A Blood Type Antibody Screen Crossmatch 03/28/18 03/29/18 03/29/18 12:30 03:27 03:27 WBC 15.7 H RBC 3.10 L Hgb 8.9 L Hct 27.2 L MCV 87.7 MCH 28.7 MCHC 32.7 RDW 15.3 H Plt Count 372 MPV 12.4 Immature Gran % 1.5 Seg Neutrophils % 70.9 Lymphocytes % 15.6 Monocytes % 8.5 Eosinophils % 3.1 Basophils % 0.4 Neutrophils # 11.1 H Lymphocytes # 2.5 Monocytes # 1.3 Eosinophils # 0.5 Basophils # 0.1 Heparin Anti-Xa, Unfract 0.54 Sodium Potassium Chloride Carbon Dioxide BUN Creatinine Est GFR ( Amer) Est GFR (Non-Af Amer) BUN/Creatinine Ratio Glucose POC Glucose Calculated Osmolality Calcium Iron % Saturation Transferrin Stool Occult Blood Blood Type O POSITIVE Antibody Screen NEGATIVE Crossmatch See Detail 03/29/18 03:27 WBC RBC Hgb Hct MCV MCH MCHC RDW Plt Count MPV Immature Gran % Seg Neutrophils % Lymphocytes % Monocytes % Eosinophils % Basophils % Neutrophils # Lymphocytes # Monocytes # Eosinophils # Basophils # Heparin Anti-Xa, Unfract Sodium 140 Potassium 4.4 Chloride 114 H Carbon Dioxide 14 L BUN 65 H Creatinine 1.79 H Est GFR ( Amer) 33 L Est GFR (Non-Af Amer) 27 L BUN/Creatinine Ratio 36 H Glucose 182 H POC Glucose Calculated Osmolality 313 H Calcium 8.3 L Iron % Saturation Transferrin Stool Occult Blood Blood Type Antibody Screen Crossmatch Cultures: Cultures 03/25/18 18:56 Wound Culture - Final Left Foot Proteus mirabilis Staphylococcus aureus 03/27/18 12:27 Urine Culture - Final Urine,Clean Catch No growth. 03/25/18 18:56 Anaerobic Culture - Preliminary Left Foot At this time, no anaerobic growth is present. The culture will be finalized after 5 days of incubation. 03/25/18 18:56 Gram Stain - Final Left Foot 03/27/18 02:53 Blood Culture - Preliminary Peripheral Venipuncture Culture is incubating and being continuously monitored for growth. Final report to follow. 03/27/18 02:53 Blood Culture - Preliminary Peripheral Venipuncture Culture is incubating and being continuously monitored for growth. Final report to follow. Serology 03/28/18 03/27/18 Range/Units 12:05 12:27 Urine Color Dark Yellow (Yellow) Urine Clarity Turbid A (Clear) Urine pH 5.5 (5.0-8.0) pH Units Ur Specific [place] 1.020 (1.010-1.025) Urine Protein Trace (Neg-Trace) mg/dL Urine Glucose (UA) Normal (Normal) mg/dL Urine Ketones Negative (Negative) mg/dL Urine Blood Small H (Negative) Urine Nitrite Negative (Negative) Urine Bilirubin Negative (Negative) Urine Urobilinogen Normal (Normal) mg/dL Ur Leukocyte Esterase Large H (Negative) Urine Microscopic RBC 0-3 (0-3) per hpf Urine Microscopic WBC TNTC H (0-3) per hpf Ur Squamous Epith Cells Moderate H (None-Few) per lpf Urine Bacteria None Seen (None-Few) per hpf Hyaline Casts None Seen (None-Few) per lpf Urine Yeast Many H (None Seen) per hpf Ur Culture Indicated? YES A (NO) Stool Occult Blood Positive A (Negative) Exam - Constitutional Vitals: Temp Pulse Resp BP Pulse Ox 98.0 F 95 16 135/70 97 03/29/18 11:43 03/29/18 11:43 03/29/18 11:43 03/29/18 11:43 03/29/18 11:43 General appearance: cooperative, no acute distress, obese - Head Head exam: Present: atraumatic, normal inspection, normocephalic - Eye Eye exam: Absent: normal appearance (LEft eye is cloudy and atrophied.) - ENT ENT exam: Present: mucous membranes moist - Neck Neck exam: Present: normal inspection - Respiratory Respiratory exam: Present: CTAB. Absent: rales, respiratory distress, rhonchi, wheezes - Cardiovascular Cardiovascular exam: Present: irregular rhythm, +S1, +S2. Absent: tachycardia - GI/Abdominal GI/Abdominal exam: Present: distended (obese), normal bowel sounds, soft. Absent: tenderness - Extremities Exam Extremities exam: Present: pedal edema (Trace LLE). Absent: joint swelling, normal inspection (Left foot dressing C/D/I.), tenderness - Neurological Exam Neurological exam: Present: alert, oriented X3, no focal deficits - Psychiatric Psychiatric exam: Present: normal affect, normal mood - Skin Skin exam: Present: dry, intact, normal color, warm Consult Discharge Plan - Plan Referrals: Isabelle Joseph ELEMENTARY SCHOOL COUNSELOR [Primary Care Provider] - - Attending Attestation I examined this patient and my medical decision-making was reviewed with the Resident Physician. I agree with the documented findings, disposition and treatment plan as described except to the extent set forth below.
[2018-03-29 13:12] LABS: Folate 9.8 ng/mL (3.0-16.0)
[2018-03-29] MEDS ORDERED: Lidocaine -MPF 2% 2 ML VIAL ONE (15:34)
[2018-03-29] MEDS ORDERED: Propofol 500 MG/50 ML INFUS..BTL ONE (15:35)
[2018-03-29] MEDS ORDERED: Lidocaine 1% 20 ML MDV ONE (15:40)
[2018-03-29] MEDS ORDERED: Vancomycin 1,000 MG VIAL ONE (15:40)
[2018-03-29] MEDS ORDERED: Bupivacaine-MPF 0.25% 10 ML VIAL ONE (15:40)
--- NOTE | 2018-03-29 16:03 | Event Note ---
Date of Encounter: 03/29/18 Time of Encounter: 16:01 - Cardiology Event Note Monitoring patient peripherally for AC recommendations at D/C. Noted heparin gtt on hold due to anemia and positive stool guiac. Patient may not tolerate AC. EGD scheduled tomorrow. HR remains controlled. We will monitor. Out-pt f/u will be scheduled.
[2018-03-29] MEDS ORDERED: Chloroprocaine/PF 20 ML VIAL INFILT ONE (16:21)
--- NOTE | 2018-03-29 17:40 | Operative Note ---
Date of procedure: 03/29/18 Pre-op diagnosis: left diabetic foot infection Post-op diagnosis: same Procedure: left choparts amputation Implants: none Complications: none Anesthesia: MAC Local Anesthetics: Other (chloroprocaine) Surgeon: Agus Ayers Was there an purchasing assistant present: No Estimated blood loss (cc): 25 Specimen: left foot bone Condition: stable Disposition: PACU Procedure in Detail: Indications: 78-year-old female who previously underwent partial foot amputation due to gas gangrene and has skin necrosis at the amputation margin and is being brought back to the operating room for the above procedure. Patient had been evaluated by vascular. Patient and family had condition explained to them and understood that she is high risk for limb loss. No guarantees were made as to the outcome of any procedure. It was explained that this would be a staged procedure if she were able to salvage the remainder of her foot and she would require more surgery. All of her questions were answered and the informed consent was signed. On the day of surgery the patient did decide that she wanted to continue to go through with the surgical procedure and was brought from the preoperative holding area and operating room placed in the operating room table in the supine position. The left foot was scrubbed prepped and draped in the usual sterile fashion. A tourniquet had been applied but was not used during the entire procedure. Left Chopart's amputation. Attention was directed to the amputation site which had necrosis and the sutures were removed. A #15 blade was used to resect the necrotic nonviable tissue at the amputation margin. The navicular bone and cuboid bone were identified and the incision and these were resected and sent to pathology. The navicular and cuboid bone were noted to be soft. The talus and calcaneus were visible in the incision. Some of the fat the plantar surface of the foot was debulked for to allow for reapproximation of part of the incision both medially and laterally. The area was probed and explored and no purulence was expressed. The site was irrigated with vancomycin in normal sterile saline. The wound was deemed adequate for partial closure. 0 Vicryl was used to reapproximate the deep and subcutaneous tissue and 0 Prolene and 3- 0 Prolene was used to reapproximate the skin. The medial and plantar medial aspect of the amputation margin was open and did not have adequate skin for closure. A wound VAC with Adaptic over the bone and black foam was applied and set to 125 mmHg. Postoperative bandaging included 4 x 4 gauze, ABDs, and Kerlix. Patient will return to the floor where she will continue IV antibiotics.
--- NOTE | 2018-03-29 17:55 | Anesthesia Evaluation Post Op ---
Date of Encounter: 03/29/18 Time of Encounter: 17:54 - Vital Signs Vital Signs: Vital Signs/O2 Sat, Most Current Temp Pulse Resp BP Pulse Ox 98.0 F 95 16 135/70 97 03/29/18 11:43 03/29/18 11:43 03/29/18 11:43 03/29/18 11:43 03/29/18 11:43 - Lungs Lungs: Clear Ascult./Percussion - Airway Airway: Non-obstructed - Cardiovascular Regular Rate - Mental Status Mental Status: Confused - Pain Pain Scale: 1 Pain Scale used: Numeric (1 - 10) - Nausea Vomiting Nausea Vomiting: Not Present - Hydration Hydration: NPO - Discharge PostOp Status: Transfer Patient to floor
[2018-03-29] MEDS ORDERED: D5% in Water 1,000 ML IVC PRN (18:11)
[2018-03-29] MEDS ORDERED: Dextrose Gel 15 GM/37.5 ML TUBE PO PRN ×2 (18:11)
[2018-03-29] MEDS ORDERED: *HR* Metoprolol 5 MG/5 ML VIAL IVP PRN (18:11)
[2018-03-29] MEDS ORDERED: Naloxone 0.4 MG/ML INJ IVP PRN (18:11)
[2018-03-29] MEDS ORDERED: *HR* Heparin 5,000 UNIT/ML VIAL IVP PRN ×2 (18:11)
[2018-03-29] MEDS ORDERED: *HR* Dextrose 50 % in Water (Syg) 50 ML SYRINGE IVP PRN (18:11)
[2018-03-29] MEDS ORDERED: Acetaminophen 325 MG TABLET PO PRN (18:11)
--- NOTE | 2018-03-29 19:41 | Vascular/End[facility]as Progress Note ---
Date of Encounter: 03/29/18 Time of Encounter: 19:15 - Assessment and plan (1) Peripheral vascular disease Current Visit: Yes Status: Chronic The patient has undergone further debridement with partial wound closure by Dr. Ayers. The patient will have a wound vac placed to aid in wound healing. If her wound does not heal, then angiography can be considered. The patient was informed that angiography may pose significant risk of renal failure. The p atient was also informed that below knee amputation may be required if the wound fails to heal. The patient was discussed with Dr. Ayers. (2) Chronic kidney disease, stage IV (severe) Current Visit: Yes Status: Chronic (3) Insulin dependent diabetes mellitus Current Visit: No Status: Chronic (4) Diabetes mellitus with foot ulcer Current Visit: Yes Status: Chronic The patient was counseled regarding atherosclerotic risk factor reduction. 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 transplanted heart: [place] heart Associated angina: without angina Qualified Code(s): I25.810 - Atherosclerosis of coronary artery bypass graft(s) without angina pectoris (6) A-fib Current Visit: Yes Status: Acute Qualifiers: Atrial fibrillation type: persistent Qualified Code(s): I48.1 - Persistent atrial fibrillation - Subjective Interval history: The patient has undergone further debridement of her wound. She reports adequate pain control. She denies chest pain or shortness of breath. Vital Signs, Last 4 Hours Temp Pulse Resp BP Pulse Ox 03/29/18 18:23 97.4 F L 98 18 122/59 100 - Physical Examination General: Present: Conversant Cardiac: Present: Normal S1 and S2 Lungs: Present: Normal Breath Sounds Neuro: Present: Alert and responsive, Motor nerves grossly intact, Sensory nerves grossly intact Vascular: Present: Surgical incisions (left foot wound bandaged). Absent: Edema Abdomen: Present: Soft Skin: Present: No rashes noted on visualized skin Results 03/30/18 08:52 03/30/18 08:52 Lab Results, Last 24 hours 03/29/18 03/29/18 03:27 03:27 WBC 15.7 H Hgb 8.9 L Hct 27.2 L Plt Count 372 Sodium 140 Potassium 4.4 Chloride 114 H Carbon Dioxide 14 L BUN 65 H Creatinine 1.79 H Glucose 182 H Calcium 8.3 L Consult Discharge Plan - Plan Referrals: Isabelle Joseph STORES LABORER [Primary Care Provider] -
[2018-03-29] MEDS: 0.9 % Sodium Chloride 250 ML IVC SCH (21:22)
[2018-03-30] MEDS: *HR* OxyCODONE Immed Rel 5 MG TABLET PO PRN ×2 (01:07→21:09)
[2018-03-30] MEDS ORDERED: ceFAZolin 1,000 MG in Water for inj. (sterile) 20 ML 10 ML IVP SCH (04:00)
[2018-03-30] MEDS: Insulin LISPRO 300 UNITS/3 ML VIAL SQ SCH ×3 (12:00→20:38)
[2018-03-30] MEDS ORDERED: *HR* Water for inj. (Sterile) 20 ML VIAL IV ONE (12:59)
[2018-03-30] MEDS ORDERED: *HR* Morphine 2 MG/ML SYRINGE IVP ONE (13:05)
--- NOTE | 2018-03-30 13:23 | Internal Med Progress Note ---
Hospitalist Progress Note - Encounter Date of Encounter: 03/30/18 Time of Encounter: 10:24 - Subjective Interval History: Patient seen and examined this morning. More alert and awake. Denies foot pain. Improved with medications. at bedside. Denies any sob, cp, abdominal pain, N/V/D. NPO for EGD. - Exam Vitals: Temp Pulse Resp BP Pulse Ox 98.2 F 94 16 106/62 97 03/30/18 00:43 03/30/18 00:43 03/30/18 00:43 03/30/18 00:43 03/30/18 00:43 Exam: Gen: AO x 2, in NAD HEENT: NC/AT, left eye blind Neck: Supple, no JVD Lungs: CTA b/l, No adventitious lung sounds Heart: Irregularly irregular rhythm, S1,S2, no MRG Abd: Soft, mild tenderness on RLQ w/o rebound/guarding. Ext: Left foot s/p surgery, well dressed. Neuro: decreased sensation both legs. - Assessment and Plan (1) CKD (chronic kidney disease) stage 5, GFR less than 15 ml/min Current Visit: No Status: Chronic (2) DVT prophylaxis Current Visit: No Status: Acute (3) Diabetes Current Visit: No Status: Acute (4) Leukocytosis Current Visit: Yes Status: Acute (5) Gas gangrene Current Visit: Yes Status: Acute (6) Diabetes mellitus with foot ulcer Current Visit: Yes Status: Chronic (7) CAD (coronary artery disease) Current Visit: Yes Status: Chronic (8) A-fib Current Visit: Yes Status: Acute (9) Bacteremia Current Visit: Yes Status: Acute (10) UTI (urinary tract infection) Current Visit: Yes Status: Ruled-out - Summary of Assessment and Plan Summary of Assessment and Plan: Diabetes mellitus with Lt foot ulcer and gas gangrene - Severe gas gangrene. Not meet criteria for sepsis. Lactate 0.8. - S/P partial lt foot amputation, I/D by podiatry. 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 - Was started Vanco, zosyn, and Clindamycin. Vanc and clindamycin stopped. Wound culture and blood culture with MSSA and Proteus pansensitive. Now switched to cefazolin 1g q12 per ID. May need 6-8 weeks if foot is salvagable. - vascular following. May consider angiography if not improving and if needs BKA. - ID following recommendation appreciated. New A-fib - Incidentally found in ER. Pt denies hx of A Fib. HR 90s. - c/w heparin drip started for AC. Will switch to oral on DC and f/u outpatient with cardio. - HR is well controlled. BB or cardizem held due to low BP. IV prn metoprolol - Echo shows LVEF 45%, no significant valve disease. - cardio following. - Heparin on hold for EGD Anemia - Baseline of 9-10. Possible component of concentration with bacteremia, anemia of chronic dz and CKD - Started on Heparin for afib. stool occult positive. no h/o Gi bleed. Colonoscopy last year with hemorrhoids. - s/p 1 PRBC - GI following with plan for EGD today. CKD -Cr is about at her baseline. CAD - No chest pain. Cont home meds. Bacteremia - 1/2 Blood culture on 03/25 for MSSA and 1/2 for S.Anginosus(possible contaminant). - Now switched to cefazolin - TTE with EF of 45, intermediate DD, borderline PHTN. No signs of endocarditis on exam and TTE. Plan for SUDEEP. - repeat blood culture 03/27/18 NGTD. - ID following UTI - C/O RLQ pain, CT abd/pelvis shows ? cystitis, UA shows ? UTI. - urine culture NGTD. DVT prophylaxis - Heparin SC - Time Spent with Patient Total time spent is greater than 50% in coordination of care (as documented) at patient's floor/unit and/or counseling patient: Internal Medicine: Result - Labs CBC & Chem 7: 03/29/18 03:27 03/29/18 03:27 - ABG Interpretation ABG results: PT/INR, D-dimer PT 14.4 Seconds (9.4-12.1) H 03/26/18 13:08 - Impressions Impressions Fluoroscopy 03/29/18 16:00 IMPRESSION: Fluoroscopic guidance for intraoperative procedure. Please see performing physician notes for full detail. D/ / 03/29/2018 18:19:58 Baldomero Sanchez MD / [place] Interpreting Provider: Baldomero Sanchez MD Foot X-Ray 03/29/18 16:00 IMPRESSION: Fluoroscopic guidance for intraoperative procedure. Please see performing physician notes for full detail. D/ / 03/29/2018 18:19:58 Baldoemro Sanchez MD / [place] Interpreting Provider: Baldomero Sanchez MD Foot X-Ray 03/29/18 19:00 IMPRESSION: Interval resection portions of the distal midfoot. 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 Diabetes mellitus complication status: with kidney complications Diabetes mellitus complication detail: with chronic kidney disease Chronic kidney disease stage: stage 5, not on chronic dialysis Qualified Code(s): E11.22 - Type 2 diabetes mellitus with diabetic chronic kidney disease; N18.5 - Chronic kidney disease, stage 5; Z79.4 - long term care pharmacist (current) use of insulin (4) Leukocytosis Qualifiers: Leukocytosis type: other Qualified Code(s): D72.828 - Other elevated white blood cell count (6) Diabetes mellitus with foot ulcer Qualifiers: Diabetes mellitus type: type 2 Diabetes mellitus mcfp insulin use: with mcfp use Qualified Code(s): E11.621 - Type 2 diabetes mellitus with foot ulcer; L97.509 - Non-pressure chronic ulcer of other part of unspecified foot with unspecified severity; Z79.4 - care home (current) use of insulin (7) CAD (coronary artery disease) Qualifiers: Coronary Disease-Associated Artery/Lesion type: bypass graft [place] vs. t ransplanted heart: [place] heart Associated angina: without angina Qualified Code(s): I25.810 - Atherosclerosis of coronary artery bypass graft(s) without angina pectoris (8) A-fib Qualifiers: Atrial fibrillation type: persistent Qualified Code(s): I48.1 - Persistent atrial fibrillation (10) UTI (urinary tract infection) Qualifiers: Urinary tract infection type: acute cystitis Hematuria presence: without hematuria Qualified Code(s): N30.00 - Acute cystitis without hematuria
--- NOTE | 2018-03-30 14:16 | Infectious Disease Progress No ---
Date of Encounter: 03/30/18 Time of Encounter: 11:30 - Assessment and Plan (1) Leukocytosis Current Visit: Yes Status: Acute WBC elevated at 26 on admission. Likely secondary to left foot infection and possible UTI. Improved. Blood cultures drawn 03/25/18 are positive 1/2 sets for MSSA and 1/2 sets for S. anginosus. Repeat blood cultures drawn 03/27/18 are NGTD x 2 sets. Repeat CBC and BMP in the AM. Qualifiers: Leukocytosis type: other Qualified Code(s): D72.828 - Other elevated white blood cell count (2) Bacteremia Current Visit: Yes Status: Acute Causative organism: MSSA and S. anginosus. Not sure if the S. anginosus is a true infection vs. contaminant since no other cultures are positive for this. Source: likely the left foot ulcer. Blood cultures drawn 03/25/18 are positive 1/2 sets for MSSA and 1/2 sets for S. anginosus. Repeat blood cultures drawn 03/27/18 are NGTD x 2 sets. Complicated due to the presence of osteomyelitis. No endocarditis stigmata noted on exam. The patient has two minor Modified Sar[place]'s Criteria. TTE completed and negative for vegetation. May consider SUDEEP prior to discharge. Continue Ancef 1 gram IV Q24H, dose-adjusted for low CrCl. Will discuss dosing with pharmacy to see if we need to increase the dose since the patient's renal function is improved. Duration of treatment depends on the clinical picture. Monitor renal function and dose-adjust antibiotics. (3) Gas gangrene Current Visit: Yes Status: Acute Location: Left foot. Etiology unclear: DFU vs. animal bite/scratch vs. other. Causative organism: Polymicrobial. Wound swab culture positive for MSSA. Intra- op cultures are positive for MSSA and P. mirabilis. CT of the left lower extremity showed extensive soft tissue gas throughout the forefoot extending up to the ankle. Podiatry consulted. 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 Previously-placed left foot hardware was removed. Operative note reviewed. Intra-op cultures as above. Pathology positive for OM with clear margins noted. Pre-op ESR >130 with CRP 232. CK level 25. Status post left choparts amputation 03/29/[address] Ayers. Navicular and cuboid bones removed. Pathology pending. Wound care and activity restrictions per the Podiatry team. Continue Ancef 1 gram IV Q24H, dose-adjusted for diminished CrCl. Will need to discuss with pharmacy if dose needs increased. Duration of treatment depends on the clinical picture, but likely 6-8 weeks of IV antibiotics if the foot is deemed salvageable. Monitor renal function and dose-adjust antibiotics. Consult VAT for midline placement prior to discharge. Further OPAT recommendations to follow pending clinical and culture outcomes. We will continue to follow. (4) Ulcer of foot with necrosis of muscle Current Visit: Yes Status: Acute Location: Plantar aspect of the left foot. Etiology unclear. Podiatry consulted and following. Antibiotic recommendations as above. 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 Patient has had some weakness and confusion. Urinalysis positive for pyuria, but urine culture was negative. Qualifiers: Urinary tract infection type: acute cystitis Hematuria presence: without hematuria Qualified Code(s): N30.00 - Acute cystitis without hematuria (6) CKD (chronic kidney disease) stage 5, GFR less than 15 ml/min Current Visit: No Status: Chronic (7) Insulin dependent diabetes mellitus Current Visit: No Status: Chronic Recommend aggressive glucose monitoring and control to promote wound healing and prevent re-infection. Management per the primary team. (8) CAD (coronary artery disease) Current Visit: Yes Status: Chronic Qualifiers: Coronary Disease-Associated Artery/Lesion type: bypass graft [place] vs. transplanted heart: [place] heart Associated angina: without angina Qualified Code(s): I25.810 - Atherosclerosis of coronary artery bypass graft(s) without angina pectoris (9) A-fib Current Visit: Yes Status: Acute Cardiology consulted. Qualifiers: Atrial fibrillation type: persistent Qualified Code(s): I48.1 - Persistent atrial fibrillation (10) Rectal bleeding Current Visit: No Status: Acute FOBT +. Known history of hemorrhoids with last C-scope last year. GI consulted. (11) Peripheral vascular disease Current Visit: Yes Status: Chronic ABIs abnormal. TCPO2 consistent with healing. Vascular consulted. - Subjective Interval history: Patient seen and examined with family at the bedside. No acute events noted overnight. Patient appears improved today. Denies fevers, chills, or rigors. Denies chest pain, shortness of breath, or cough. Denies nausea, vomiting, or diarrhea. Denies abdominal pain or urinary complaints. Denies oral thrush or skin rashes. Reports mild pain at the surgical site. Per family, patient's mental status is improved. Status post repeat washout 03/29/18. Infect Dis PN-Objective Data - Labs CBC & Chem 7: 03/31/18 05:04 03/31/18 05:04 Labs: Laboratory Results - last 24 hr 03/28/18 03/28/18 03/29/18 15:56 19:09 07:00 POC Glucose 160 H 148 H 166 H 03/29/18 03/29/18 11:45 21:40 POC Glucose 176 H 117 H Cultures: Cultures 03/25/18 18:56 Wound Culture - Final Left Foot Proteus mirabilis Staphylococcus aureus 03/25/18 15:06 Blood Culture - Final Peripheral Venipuncture Staphylococcus aureus 03/25/18 14:58 Blood Culture - Final Peripheral Venipuncture Streptococcus anginosus 03/27/18 12:27 Urine Culture - Final Urine,Clean Catch No growth. 03/25/18 18:56 Anaerobic Culture - Preliminary Left Foot At this time, no anaerobic growth is present. The culture will be finalized after 5 days of incubation. 03/25/18 18:56 Gram Stain - Final Left Foot 03/25/18 15:45 Wound Culture - Final Right Foot Staphylococcus aureus 03/27/18 02:53 Blood Culture - Preliminary Peripheral Venipuncture Culture is incubating and being continuously monitored for growth. Final report to follow. 03/27/18 02:53 Blood Culture - Preliminary Peripheral Venipuncture Culture is incubating and being continuously monitored for growth. Final report to follow. Serology 03/28/18 03/27/18 03/25/18 Range/Units 12:05 12:27 15:06 Urine Color Dark Yellow (Yellow) Urine Clarity Turbid A (Clear) Urine pH 5.5 (5.0-8.0) pH Units Ur Specific [place] 1.020 (1.010-1.025) Urine Protein Trace (Neg-Trace) mg/dL Urine Glucose (UA) Normal (Normal) mg/dL Urine Ketones Negative (Negative) mg/dL Urine Blood Small H (Negative) Urine Nitrite Negative (Negative) Urine Bilirubin Negative (Negative) Urine Urobilinogen Normal (Normal) mg/dL Ur Leukocyte Esterase Large H (Negative) Urine Microscopic RBC 0-3 (0-3) per hpf Urine Microscopic WBC TNTC H (0-3) per hpf Ur Squamous Epith Cells Moderate H (None-Few) per lpf Urine Bacteria None Seen (None-Few) per hpf Hyaline Casts None Seen (None-Few) per lpf Urine Yeast Many H (None Seen) per hpf Ur Culture Indicated? YES A (NO) Stool Occult Blood Positive A (Negative) A. baumannii (PCR) Not Detected (Not Detect) Cris albicans (PCR) Not Detected (Not Detect) C. glabrata (PCR) Not Detected (Not Detect) C. krusei (PCR) Not Detected (Not Detect) C. parapsilosis (PCR) Not Detected (Not Detect) C. tropicalis (PCR) Not Detected (Not Detect) Enterobacteriac sp PCR Not Detected (Not Detect) E. cloacae complex PCR Not Detected (Not Detect) Enterococcus sp PCR Not Detected (Not Detect) E. coli (PCR) Not Detected (Not Detect) H. influenzae (PCR) Not Detected (Not Detect) Klebsiella oxytoca PCR Not Detected (Not Detect) Klebsiella pneumoniae Not Detected (Not Detect) List. monocytogenes PCR Not Detected (Not Detect) N. meningitidis (PCR) Not Detected (Not Detect) Proteus species (PCR) Not Detected (Not Detect) Serratia marcescens PCR Not Detected (Not Detect) Staphylococcus sp PCR DETECTED A (Not Detect) Staph aureus (PCR) DETECTED A (Not Detect) mecA-Methicil Res Gene Not Detected (Not Detect) Streptococcus sp PCR Not Detected (Not Detect) Group A Strep DNA Not Detected (Not Detect) Group B Strep (PCR) Not Detected (Not Detect) Strep pneumoniae (PCR) Not Detected (Not Detect) P. aeruginosa (PCR) Not Detected (Not Detect) Tammy/B-Vanco Res Genes N/A (Not Detect) KPC (blaKPC) Detect PCR N/A (Not Detect) 03/25/18 Range/Units 14:58 Urine Color (Yellow) Urine Clarity (Clear) Urine pH (5.0-8.0) pH Units Ur Specific [place] (1.010-1.025) Urine Protein (Neg-Trace) mg/dL Urine Glucose (UA) (Normal) mg/dL Urine Ketones (Negative) mg/dL Urine Blood (Negative) Urine Nitrite (Negative) Urine Bilirubin (Negative) Urine Urobilinogen (Normal) mg/dL Ur Leukocyte Esterase (Negative) Urine Microscopic RBC (0-3) per hpf Urine Microscopic WBC (0-3) per hpf Ur Squamous Epith Cells (None-Few) per lpf Urine Bacteria (None-Few) per hpf Hyaline Casts (None-Few) per lpf Urine Yeast (None Seen) per hpf Ur Culture Indicated? (NO) Stool Occult Blood (Negative) A. baumannii (PCR) Not Detected (Not Detect) Cris albicans (PCR) Not Detected (Not Detect) C. glabrata (PCR) Not Detected (Not Detect) C. krusei (PCR) Not Detected (Not Detect) C. parapsilosis (PCR) Not Detected (Not Detect) C. tropicalis (PCR) Not Detected (Not Detect) Enterobacteriac sp PCR Not Detected (Not Detect) E. cloacae complex PCR Not Detected (Not Detect) Enterococcus sp PCR Not Detected (Not Detect) E. coli (PCR) Not Detected (Not Detect) H. influenzae (PCR) Not Detected (Not Detect) Klebsiella oxytoca PCR Not Detected (Not Detect) Klebsiella pneumoniae Not Detected (Not Detect) List. monocytogenes PCR Not Detected (Not Detect) N. meningitidis (PCR) Not Detected (Not Detect) Proteus species (PCR) Not Detected (Not Detect) Serratia marcescens PCR Not Detected (Not Detect) Staphylococcus sp PCR Not Detected (Not Detect) Staph aureus (PCR) Not Detected (Not Detect) mecA-Methicil Res Gene N/A (Not Detect) Streptococcus sp PCR DETECTED A (Not Detect) Group A Strep DNA Not Detected (Not Detect) Group B Strep (PCR) Not Detected (Not Detect) Strep pneumoniae (PCR) Not Detected (Not Detect) P. aeruginosa (PCR) Not Detected (Not Detect) Tammy/B-Vanco Res Genes N/A (Not Detect) KPC (blaKPC) Detect PCR N/A (Not Detect) - Impressions Impressions Fluoroscopy 03/29/18 16:00 IMPRESSION: Fluoroscopic guidance for intraoperative procedure. Please see performing physician notes for full detail. D/ / 03/29/2018 18:19:58 Baldomero Sanchez MD / weston Interpreting Provider: Baldomero Sanchez MD Foot X-Ray 03/29/18 16:00 IMPRESSION: Fluoroscopic guidance for intraoperative procedure. Please see performing physician notes for full detail. D/ / 03/29/2018 18:19:58 Baldomero Sanchez MD / weston Interpreting Provider: Baldomero Sanchez MD Foot X-Ray 03/29/18 19:00 IMPRESSION: Interval resection portions of the distal midfoot. D/ / Stacy Ivey Cha, MD / Stacy Ivey Cha, MD Interpreting Provider: Stacy Ivey Cha, MD Exam - Constitutional Vitals: Temp Pulse Resp BP Pulse Ox 98.2 F 94 16 127/86 97 03/30/18 00:43 03/30/18 00:43 03/30/18 00:43 03/30/18 13:50 03/30/18 00:43 General appearance: average body habitus, cooperative, no acute distress - Head Head exam: Present: atraumatic, normal inspection, normocephalic - Eye Eye exam: Absent: normal appearance (Left eye cloudy and eye globe atrophied.) - ENT ENT exam: Present: mucous membranes moist - Neck Neck exam: Present: normal inspection - Respiratory Respiratory exam: Present: CTAB. Absent: rales, respiratory distress, rhonchi, wheezes - Cardiovascular Cardiovascular exam: Present: irregular rhythm, +S1, +S2. Absent: tachycardia - GI/Abdominal GI/Abdominal exam: Present: normal bowel sounds, soft. Absent: distended, tenderness - Extremities Exam Extremities exam: Present: tenderness (left foot). Absent: joint swelling, normal inspection (Left post-op dressing C/D/I.), pedal edema - Neurological Exam Neurological exam: Present: alert, oriented X3, no focal deficits - Psychiatric Psychiatric exam: Present: normal affect, normal mood - Skin Skin exam: Present: dry, intact, normal color, warm Consult Discharge Plan - Plan Referrals: Isabelle Joseph CNP [Primary Care Provider] - - Attending Attestation I examined this patient and my medical decision-making was reviewed with the Resident Physician. I agree with the documented findings, disposition and treatment plan as described except to the extent set forth below.
--- NOTE | 2018-03-30 15:36 | Anesthesia Evaluation PreOp ---
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: Other (JULIANA LE DIABETIC NEUROPATHY) Other Medical History: Renal (CKD 5), Bleeding (ANEMIA), Diabetes Type II Anesthesia History: No Prior Anesthetic Complications, Past Anesthesia Alcohol Use: none Drug use: none Medications and Allergies Dorzolamide/Timolol [Cosopt] 1 drop OP BID 02/23/17 [History] Insulin NPH Hum/Reg Insulin Hm [Humulin 70-30 Vial] 10 - 15 unit SQ BID 02/23/17 [History] Simvastatin [Zocor] 40 mg PO HS 02/23/17 [History] glipiZIDE [Glipizide] 10 mg PO BID 02/23/17 [History] Ergocalciferol (VITAMIN D2) [Vitamin D2] 50,000 unit PO QWEEK 03/25/18 [History] amLODIPine [Norvasc] 5 mg PO DAILY 03/25/18 [History] Lisinopril-HCTZ 10-12.5 [Prinzide 10-12.5] 1 tab PO DAILY 03/28/18 [History] Allergy/AdvReac Type Severity Reaction Status Date / Time lidocaine Allergy See Verified 02/23/17 16:30 Comments - Meds/Allergy Pre-op Review Medications Reviewed: Yes Allergies Reviewed: Yes Anesthesia Results - Labs 03/30/18 08:52 03/29/18 03:27 - Imaging Additional studies: TTE 03/26/2018: LVEF 45%. Normal LV chamber size, wall thickness. Mild segmental left ventricular systolic dysfunction. Indeterminate diastolic function. Normal right ventricular structure and function. Mild aortic sclerosis. Mean gradient 11 mmHg. Mild mitral stenosis. Mean gradient 5 mmHg. Mild tricuspid regurgitation. Anesthesia Exam Vital Signs/O2 Sat/Glucose, Most Recent Temp Pulse Resp BP Pulse Ox 97.9 F 101 101 103/63 100 03/30/18 14:47 03/30/18 14:47 03/30/18 14:47 03/30/18 14:47 03/30/18 14:47 Blood Glucose* 117 Weight: 87 kg, BMI 33 NPO (# of Hours): 8 - HEENT Mallampati: II Teeth: Edentulous Denture Type: Upper: Complete, Lower: Complete Oral Opening: Greater than 3 - Cardiac Rhythm: Regular - Pulmonary Breath Sounds: bilateral Clear Respiratory Effort: Symmetrical - Additional Findings Active Medications Acetaminophen (Tylenol) 650 mg PO Q6H PRN PRN Reason: Mild Pain/Fever Stop: 09/24/18 21:01 Dextrose/Water (Dextrose 50% (Syg)) 25 ml IVP AD PRN PRN Reason: Hypoglycemia Stop: 09/24/18 17:44 Dorzolamide/Timolol (Cosopt) 1 drop RIGHT EYE BID THADDEUS Stop: 09/25/18 21:01 Last Admin: 03/29/18 21:21 Dose: 1 drop Glucagon (Glucagen) 1 mg IM ONCE PRN PRN Reason: Hypoglycemia Stop: 09/24/18 17:44 Glucose (Gluctose) 15 gm PO ONCE PRN PRN Reason: Hypoglycemia Stop: 09/24/18 17:44 Glucose (Gluctose) 30 gm PO ONCE PRN PRN Reason: Hypoglycemia Stop: 09/24/18 17:44 Sodium Chloride (0.9 % Sodium Chloride) 250 mls @ 25 mls/hr IVC .Q10H THADDEUS Stop: 09/27/18 12:01 Last Admin: 03/29/18 21:22 Dose: 25 mls/hr Cefazolin Sodium 1,000 mg/ (Sterile Water) 10 mls @ 200 mls/hr IVP Q12H THADDEUS Stop: 09/27/18 16:01 Dextrose (Dextrose 5%) 1,000 mls @ 100 mls/hr IVC .Q10H PRN PRN Reason: HYPOGLYCEMIA Stop: 09/24/18 17:44 Insulin Human Lispro (Humalog) 0 units SQ HS [facility]; Protocol Stop: 09/25/18 21:01 Last Admin: 03/29/18 21:49 Dose: Not Given Insulin Human Lispro (Humalog) 0 units SQ TIDAC [facility]; Protocol Stop: 09/25/18 11:31 Last Admin: 03/30/18 12:00 Dose: Not Given Insulin Isophane/Insulin Regular (Humulin 70/30 Vial) 10 unit SQ BIDAC [facility] Stop: 09/26/18 16:31 Lactobacillus Acidophilus/Rhamnosus (Culturelle) 2 each PO DAILY [facility] Stop: 09/25/18 09:01 Metoprolol Tartrate (Lopressor) 2.5 mg IVP Q6HR PRN PRN Reason: Heart Rate- High Stop: 09/24/18 17:48 Naloxone HCl (Narcan) 0.4 mg IVP Q2MIN PRN PRN Reason: SEE COMMENTS Stop: 09/24/18 17:41 Nystatin (Nystop) 1 appl TP TID THADDEUS Stop: 09/26/18 09:01 Last Admin: 03/29/18 21:22 Dose: 1 appl Ondansetron HCl (Zofran) 4 mg IVP Q6HR PRN; Protocol PRN Reason: Nausea Stop: 09/28/18 00:01 Oxycodone HCl (Roxicodone) 5 mg PO Q4H PRN; Protocol PRN Reason: Pain Stop: 09/24/18 21:01 Last Admin: 03/30/18 01:07 Dose: 5 mg Simvastatin (Zocor) 40 mg PO HS THADDEUS; Protocol Stop: 09/25/18 21:01 Last Admin: 03/29/18 21:23 Dose: 40 mg Anesthesia Assess/Plan ASA Score: 3 Anesthetic Plan: MAC Monitoring Plan: Standard Monitors Recovery Plan: Other Anes Supervising Prov Stmt: PATIENT HAS A HISTORY OF TOPICAL LIDOCAINE SENSITIVITY. HAD LIDOCAINE IN THE PAST WITHOUT PROBLEMS. Patient informed and consented. Risks, benefits, and alternatives discussed. Patient wishes to proceed.
[2018-03-30] MEDS ORDERED: 0.9 % Sodium Chloride 1,000 ML IVC SCH (16:00)
[2018-03-30 16:13] LABS: Basophils # 0.1 K/mcL (0.0-0.2); Basophils % 0.4 %; Eosinophils # 0.3 K/mcL (0.0-0.6); Eosinophils % 2.1 %; Hematocrit 28.2 % (35.3-44.9); Hemoglobin 9.2 g/dL (11.5-15.4); Immature Granulocytes % 0.7 % (0-4); Immature Platelets 6.4 % (1.1-6.1); Lymphocytes # 1.9 K/mcL (0.6-4.6); Lymphocytes % 14.3 %; Mean Corpuscular HGB Conc 32.6 g/dL (31.6-35.5); Monocytes # 1.2 K/mcL (0.0-1.3); Monocytes % 8.5 %; Nucleated Red Blood Cells 0.1 /100 WBC (0); Platelet Count 412 K/mcL (140-400); Red Blood Count 3.17 M/mcL (3.82-4.97); Red Cell Distribution Width 15.6 % (11.5-14.5)
--- NOTE | 2018-03-30 16:43 | Anesthesia Evaluation Post Op ---
Date of Encounter: 03/30/18 Time of Encounter: 16:38 - Vital Signs Vital Signs: Vital Signs Time 1638 BP 108/49 Pulse 104 Resp 18 O2 Sat 99 - Lungs Lungs: Clear Ascult./Percussion - Airway Airway: Non-obstructed - Cardiovascular Irregular Rate, Baseline Rhythm - Mental Status Mental Status: Baseline Status - Nausea Vomiting Nausea Vomiting: Not Present - Hydration Hydration: NPO, Has not voided - Discharge PostOp Status: Transfer Patient to floor
[2018-03-30 16:51] LABS: Calcium 8.6 mg/dL (8.6-10.3); Potassium 4.7 mEq/L (3.5-5.1)
[2018-03-30] MEDS: Nystatin POWDER 30 GM BOTTLE TP SCH ×2 (16:55→20:39)
--- NOTE | 2018-03-30 17:23 | Podiatry Progress Note ---
Date of Encounter: 03/30/18 Time of Encounter: 12:20 - Assessment and Plan (1) Gas gangrene Current Visit: Yes Status: Acute discussed with family and patient surgical findings and course of recovery. discussed wound still has to heal and if wound heals tendon rebalancing necessary for functionality of amputation. next wound vac change tuesday. patient has samples of Noah (protein drink) to try. patient at risk for leg amputation. (2) Diabetes mellitus with foot ulcer Current Visit: Yes Status: Chronic see above Qualifiers: Diabetes mellitus type: type 2 Diabetes mellitus terminal operator insulin use: with [facility] use Qualified Code(s): E11.621 - Type 2 diabetes mellitus with foot ulcer; L97.509 - Non-pressure chronic ulcer of other part of unspecified foot with unspecified severity; Z79.4 - intermission coordinator (current) use of insulin Subjective Principal diagnosis: Afib, left foot partial amputation Interval history: s/p left foot Chopart's amputation. pain controlled. reports some pain in left heel. wound vac is on and functioning. Objective - Vital Signs Vital Signs: Vital Signs Temp Pulse Resp BP Pulse Ox 03/30/18 15:56 97.9 F 101 18 108/64 100 03/30/18 14:47 97.9 F 101 101 103/63 100 03/30/18 14:35 98.1 F 76 16 153/66 94 03/30/18 13:50 127/86 03/30/18 00:43 98.2 F 94 16 106/62 97 03/29/18 21:23 97.9 F 69 16 123/72 100 03/29/18 18:23 97.4 F L 98 18 122/59 100 Intake and Output 03/30/18 03/30/18 03/30/18 07:59 15:59 23:59 Other: # Voids 1 # Urine Diapers 1 Weight 87 kg Blood Glucose* 128 Patient Weight 03/30/18 23:59 Weight 87 kg - Exam Exam: wound vac functioning at 125mm Hg. no strike through. - Lab Result Diagrams: 03/30/18 08:52 03/30/18 08:52 Labs: Abnormal lab results WBC 13.6 K/mcL (4.3-11.1) H 03/30/18 08:52 RBC 3.17 M/mcL (3.82-4.97) L 03/30/18 08:52 Hgb 9.2 g/dL (11.5-15.4) L 03/30/18 08:52 Hct 28.2 % (35.3-44.9) L 03/30/18 08:52 RDW 15.6 % (11.5-14.5) H 03/30/18 08:52 Plt Count 412 K/mcL (140-400) H 03/30/18 08:52 Neutrophils # 10.0 K/mcL (1.6-8.9) H 03/30/18 08:52 Nucleated RBCs/100 WBC 0.1 /100 WBC (0) H 03/30/18 08:52 Platelet Estimate Increased (Normal) H 03/25/18 14:58 Immature Plt Fraction 6.4 % (1.1-6.1) H 03/30/18 08:52 ESR >= 130 mm/hr (0-15) H 03/25/18 14:58 PT 14.4 Seconds (9.4-12.1) H 03/26/18 13:08 Chloride 115 mEq/L (98-107) H 03/30/18 08:52 Carbon Dioxide 14 mEq/L (23-29) L 03/29/18 03:27 BUN 48 mg/dL (8-23) H 03/30/18 08:52 Creatinine 1.38 mg/dL (0.60-1.20) H 03/30/18 08:52 Est GFR ( Amer) 45 (> 60) L 03/30/18 08:52 Est GFR (Non-Af Amer) 37 (> 60) L 03/30/18 08:52 BUN/Creatinine Ratio 35 (6-26) H 03/30/18 08:52 Glucose 138 mg/dL (70-105) H 03/30/18 08:52 POC Glucose 117 mg/dL (70-99) H 03/29/18 21:40 Calculated Osmolality 303 (280-300) H 03/30/18 08:52 Iron 31 mcg/dL (50-170) L 03/28/18 03:23 Transferrin 105 mg/dL (203-362) L 03/28/18 03:23 Ferritin 293 ng/mL (10-120) H 03/29/18 12:12 Creatine Kinase 25 Units/L (30-223) L 03/25/18 14:58 C-Reactive Protein 232 mg/L (Less than 10) H 03/25/18 14:58 Urine Clarity Turbid (Clear) A 03/27/18 12:27 Urine Blood Small (Negative) H 03/27/18 12:27 Ur Leukocyte Esterase Large (Negative) H 03/27/18 12:27 Urine Microscopic WBC TNTC per hpf (0-3) H 03/27/18 12:27 Ur Squamous Epith Cells Moderate per lpf (None-Few) H 03/27/18 12:27 Urine Yeast Many per hpf (None Seen) H 03/27/18 12:27 Ur Culture Indicated? YES (NO) A 03/27/18 12:27 Stool Occult Blood Positive (Negative) A 03/28/18 12:05 Vancomycin Trough 17 mcg/mL (5-10) H 03/28/18 03:23 Staphylococcus sp PCR DETECTED (Not Detect) A 03/25/18 15:06 Staph aureus (PCR) DETECTED (Not Detect) A 03/25/18 15:06 Microbiology, Last 48 Hours 03/25/18 18:56 Wound Culture - Final Left Foot Proteus mirabilis Staphylococcus aureus 03/25/18 15:06 Blood Culture - Final Peripheral Venipuncture Staphylococcus aureus 03/25/18 14:58 Blood Culture - Final Peripheral Venipuncture Streptococcus anginosus Consult Discharge Plan - Plan Referrals: Isabelle Joseph, RECRUIT INSTRUCTOR [Primary Care Provider] -
[2018-03-30] MEDS: Insulin NPH/REG 70/30 100 UNIT/ML (x5UNIT) SQ SCH (18:25)
[2018-03-30] MEDS: Dorzolamide/Timolol OPTH 10 ML BOTTLE RIGHT EYE SCH (20:39)
[2018-03-30] MEDS: Ondansetron 4 MG/2 ML VIAL IVP PRN (21:54)
[2018-03-31] MEDS: ceFAZolin 1,000 MG in Water for inj. (sterile) 20 ML 10 ML IVP SCH ×2 (05:00→16:54)
[2018-03-31 05:27] LABS: Basophils # 0.1 K/mcL (0.0-0.2); Basophils % 0.5 %; Eosinophils # 0.3 K/mcL (0.0-0.6); Eosinophils % 2.4 %; Hematocrit 29.5 % (35.3-44.9); Hemoglobin 9.6 g/dL (11.5-15.4); Immature Granulocytes % 1.2 % (0-4); Lymphocytes # 2.6 K/mcL (0.6-4.6); Lymphocytes % 21.9 %; Mean Corpuscular HGB Conc 32.5 g/dL (31.6-35.5); Mean Corpuscular Hemoglobin 28.8 pg (28.0-33.3); Mean Corpuscular Volume 88.6 fL (83.0-100.0); Mean Platelet Volume 12.3 fL (9.4-12.4); Monocytes # 1.2 K/mcL (0.0-1.3); Neutrophils # 7.6 K/mcL (1.6-8.9); Nucleated Red Blood Cells 0.3 /100 WBC (0); Platelet Count 429 K/mcL (140-400); Red Blood Count 3.33 M/mcL (3.82-4.97); Red Cell Distribution Width 15.6 % (11.5-14.5)
[2018-03-31 05:45] LABS: Calcium 8.6 mg/dL (8.6-10.3); Potassium 4.9 mEq/L (3.5-5.1)
[2018-03-31] MEDS: Lactobacillus 1 EACH CAP.SPRINK PO SCH (08:07)
[2018-03-31] MEDS: Nystatin POWDER 30 GM BOTTLE TP SCH ×3 (08:08→20:07)
[2018-03-31] MEDS: Insulin NPH/REG 70/30 100 UNIT/ML (x5UNIT) SQ SCH ×2 (08:08→17:19)
[2018-03-31] MEDS: Dorzolamide/Timolol OPTH 10 ML BOTTLE RIGHT EYE SCH (08:08)
[2018-03-31] MEDS: Insulin LISPRO 300 UNITS/3 ML VIAL SQ SCH ×4 (08:09→20:07)
[2018-03-31] MEDS: *HR* OxyCODONE Immed Rel 5 MG TABLET PO PRN ×2 (08:32→12:43)
[2018-03-31] MEDS: Ondansetron 4 MG/2 ML VIAL IVP PRN (08:33)
[2018-03-31] MEDS ORDERED: 0.9 % Sodium Chloride 500 ML IVC ONE (09:02)
[2018-03-31] MEDS ORDERED: *HR* FentaNYL (PF) 100 MCG/2 ML VIAL IVP PRN (09:02)
[2018-03-31] MEDS ORDERED: *HR* Midazolam HCl 2 MG/2 ML VIAL IVP PRN (09:02)
[2018-03-31] MEDS ORDERED: *HR* Midazolam HCl 5 MG/5 ML VIAL IVP ONE ×2 (09:13)
--- NOTE | 2018-03-31 11:05 | Internal Med Progress Note ---
Hospitalist Progress Note - Encounter Date of Encounter: 03/31/18 Time of Encounter: 10:58 - Subjective Interval History: Patient seen and examined this morning. Somewhat drowsy this morning. Denies foot pain. and daughter at bedside. Denies any sob, cp, abdominal pain, N/V/D. NPO for SUDEEP. Daughter upset about NPO status, discussed about resuming diet once back from procedure. - Exam Vitals: Temp Pulse Resp BP Pulse Ox 97.7 F 75 18 114/62 99 03/31/18 09:48 03/31/18 09:48 03/31/18 09:48 03/31/18 09:48 03/31/18 09:48 Exam: Gen: AO x 2, in NAD HEENT: NC/AT, left eye blind Neck: Supple, no JVD Lungs: CTA b/l, No adventitious lung sounds Heart: Irregularly irregular rhythm, S1,S2, no MRG Abd: Soft, Non tenderness, non distended. Ext: Left foot s/p surgery, well dressed with wound vac. Neuro: decreased sensation both legs. - Assessment and Plan (1) CKD (chronic kidney disease) stage 5, GFR less than 15 ml/min Current Visit: No Status: Chronic (2) DVT prophylaxis Current Visit: No Status: Acute (3) Diabetes Current Visit: No Status: Acute (4) Leukocytosis Current Visit: Yes Status: Acute (5) Gas gangrene Current Visit: Yes Status: Acute (6) Diabetes mellitus with foot ulcer Current Visit: Yes Status: Chronic (7) CAD (coronary artery disease) Current Visit: Yes Status: Chronic (8) A-fib Current Visit: Yes Status: Acute (9) Bacteremia Current Visit: Yes Status: Acute (10) UTI (urinary tract infection) Current Visit: Yes Status: Ruled-out - Summary of Assessment and Plan Summary of Assessment and Plan: Diabetes mellitus with Lt foot ulcer and gas gangrene - Severe gas gangrene. - S/P partial lt foot amputation, I/D by podiatry 03/25. 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 - Was started Vanco, zosyn, and Clindamycin. Vanc and clindamycin stopped. Wound culture and blood culture with MSSA and Proteus juárez-sensitive. Now switched to cefazolin 1g q12 per ID. May need 6-8 weeks if foot is salvagable. - vascular following. May consider angiography if not improving and if needs BKA. - ID following recommendation appreciated. - PT/OT and nutrition consulted. New A-fib - Incidentally found in ER. Pt denies hx of A Fib. - c/w heparin drip started for AC. Will switch to oral on DC and f/u outpatient with cardio. - HR is well controlled. BB or cardizem held due to low BP. IV prn metoprolol - Echo shows LVEF 45%, no significant valve disease. - cardio following. - Heparin on hold for SUDEEP. Will resume after Anemia - Baseline of 9-10. Possible component of concentration with bacteremia, anemia of chronic dz and CKD or GI bleed - Started on Heparin for afib. stool occult positive. no h/o Gi bleed. Colonoscopy last year with hemorrhoids. - s/p 1 PRBC. GI following. Colonoscopy not needed per GI. Had EGD 03/30 - EGD showed gastritis, esophagitis and non bleeding duodenal ulcer. Started on PPI and carafate. Path pending. - H&H stable. VALERIY on CKD - Now resolved - Cr is about at her baseline. CAD - No chest pain. Cont home meds. Bacteremia - 1/2 Blood culture on 03/25 for MSSA and 1/2 for S.Anginosus(possible contaminant). - Now switched to cefazolin - TTE with EF of 45, intermediate DD, borderline PHTN. No signs of endocarditis on exam and TTE. - repeat blood culture 03/27/18 NGTD. - Plan for SUDEEP today. NPO for that. Will resume diet afterwards. Nutrition consulted. - ID following UTI - C/O RLQ pain, CT abd/pelvis shows ? cystitis, UA shows ? UTI. - urine culture NGTD. DVT prophylaxis - Heparin SC - Time Spent with Patient Total time spent is greater than 50% in coordination of care (as documented) at patient's floor/unit and/or counseling patient: Internal Medicine: Result - Labs CBC & Chem 7: 03/31/18 11:40 03/31/18 05:04 Labs: Short CBC 03/30/18 03/31/18 Range/Units 08:52 05:04 WBC 13.6 H 11.8 H (4.3-11.1) K/mcL Hgb 9.2 L 9.6 L (11.5-15.4) g/dL Hct 28.2 L 29.5 L (35.3-44.9) % Plt Count 412 H 429 H (140-400) K/mcL Neutrophils # 10.0 H 7.6 (1.6-8.9) K/mcL BMP 03/30/18 03/31/18 08:52 05:04 Sodium 139 139 Potassium 4.7 4.9 Chloride 115 H 115 H Carbon Dioxide 18 L BUN 48 H 50 H Creatinine 1.38 H 1.39 H Glucose 138 H 270 H Calcium 8.6 8.6 - ABG Interpretation ABG results: PT/INR, D-dimer PT 14.4 Seconds (9.4-12.1) H 03/26/18 13:08 Consult Discharge Plan - Plan Referrals: Isabelle Joseph, STAVE CUTTER [Primary Care Provider] - (3) Diabetes Qualifiers: Diabetes mellitus type: type 2 Diabetes mellitus lamp inspector insulin use: with chcf use Diabetes mellitus complication status: with kidney complications Diabetes mellitus complication detail: with chronic kidney disease Chronic kidney disease stage: stage 5, not on chronic dialysis Qualified Code(s): E11.22 - Type 2 diabetes mellitus with diabetic chronic kidney disease; N18.5 - Chronic kidney disease, stage 5; Z79.4 - audio visual collections coordinator (current) use of insulin (4) Leukocytosis Qualifiers: Leukocytosis type: other Qualified Code(s): D72.828 - Other elevated white blood cell count (6) Diabetes mellitus with foot ulcer Qualifiers: Diabetes mellitus type: type 2 Diabetes mellitus chcf insulin use: with lamp inspector use Qualified Code(s): E11.621 - Type 2 diabetes mellitus with foot ulcer; L97.509 - Non-pressure chronic ulcer of other part of unspecified foot with unspecified severity; Z79.4 - penitentiary (current) use of insulin (7) CAD (coronary artery disease) Qualifiers: Coronary Disease-Associated Artery/Lesion type: bypass graft [place] vs. transplanted heart: [place] heart Associated angina: without angina Qualified Code(s): I25.810 - Atherosclerosis of coronary artery bypass graft(s) without a ngina pectoris (8) A-fib Qualifiers: Atrial fibrillation type: persistent Qualified Code(s): I48.1 - Persistent atrial fibrillation (10) UTI (urinary tract infection) Qualifiers: Urinary tract infection type: acute cystitis Hematuria presence: without hematuria Qualified Code(s): N30.00 - Acute cystitis without hematuria
[2018-03-31] MEDS ORDERED: *HR* Heparin 5,000 UNIT/ML VIAL IVP ONE (11:33)
[2018-03-31] MEDS ORDERED: *HR* Heparin 5,000 UNIT/ML VIAL IVP PRN (11:33)
--- NOTE | 2018-03-31 11:45 | Infectious Disease Progress No ---
Date of Encounter: 03/31/18 Time of Encounter: 11:43 - Assessment and Plan (1) Leukocytosis Current Visit: Yes Status: Acute WBC elevated at 26 on admission. Likely secondary to left foot infection and possible UTI. Improved. Blood cultures drawn 03/25/18 are positive 1/2 sets for MSSA and 1/2 sets for S. anginosus. Repeat blood cultures drawn 03/27/18 are NGTD x 2 sets. Qualifiers: Leukocytosis type: other Qualified Code(s): D72.828 - Other elevated white blood cell count (2) Bacteremia Current Visit: Yes Status: Acute Causative organism: MSSA and S. anginosus. Not sure if the S. anginosus is a true infection vs. contaminant since no other cultures are positive for this. Source: likely the left foot ulcer. Blood cultures drawn 03/25/18 are positive 1/2 sets for MSSA and 1/2 sets for S. anginosus. Repeat blood cultures drawn 03/27/18 are NGTD x 2 sets. Complicated due to the presence of osteomyelitis. No endocarditis stigmata noted on exam. The patient has two minor Modified Saravia's Criteria. TTE completed and negative for vegetation. SUDEEP results pending. Continue Ancef 1 gram IV Q12H, dose-adjusted for diminished CrCl. Duration of treatment depends on the clinical picture. Monitor renal function and dose-adjust antibiotics. (3) Gas gangrene Current Visit: Yes Status: Acute Location: Left foot. Etiology unclear: DFU vs. animal bite/scratch vs. other. Causative organism: Polymicrobial. Wound swab culture positive for MSSA. Intra- op cultures are positive for MSSA and P. mirabilis. CT of the left lower extremity showed extensive soft tissue gas throughout the forefoot extending up to the ankle. Podiatry consulted. 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 Previously-placed left foot hardware was removed. Operative note reviewed. Intra-op cultures as above. Pathology positive for OM with clear margins noted. Pre-op ESR >130 with CRP 232. CK level 25. Status post left choparts amputation 03/29/[address] Ayers. Navicular and cuboid bones removed. Pathology pending. Wound care and activity restrictions per the Podiatry team. Continue Ancef 1 gram IV Q12H, dose-adjusted for diminished CrCl. Duration of treatment depends on the clinical picture, but likely 6-8 weeks of IV antibiotics if the foot is deemed salvageable. Monitor renal function and dose-adjust antibiotics. Consult VAT for midline placement prior to discharge. Further OPAT recommendations to follow pending clinical and culture outcomes. We will continue to follow. (4) Ulcer of foot with necrosis of muscle Current Visit: Yes Status: Acute Location: Plantar aspect of the left foot. Etiology unclear. Podiatry consulted and following. Antibiotic recommendations as above. 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 Patient has had some weakness and confusion. Urinalysis positive for pyuria, but urine culture was negative. Qualifiers: Urinary tract infection type: acute cystitis Hematuria presence: without hematuria Qualified Code(s): N30.00 - Acute cystitis without hematuria (6) CKD (chronic kidney disease) stage 5, GFR less than 15 ml/min Current Visit: No Status: Chronic (7) Insulin dependent diabetes mellitus Current Visit: No Status: Chronic Recommend aggressive glucose monitoring and control to promote wound healing and prevent re-infection. Management per the primary team. (8) CAD (coronary artery disease) Current Visit: Yes Status: Chronic Qualifiers: Coronary Disease-Associated Artery/Lesion type: bypass graft [place] vs. transplanted heart: [place] heart Associated angina: without angina Qualified Code(s): I25.810 - Atherosclerosis of coronary artery bypass graft(s) without angina pectoris (9) A-fib Current Visit: Yes Status: Acute Cardiology consulted. Qualifiers: Atrial fibrillation type: persistent Qualified Code(s): I48.1 - Persistent atrial fibrillation (10) Rectal bleeding Current Visit: No Status: Acute FOBT +. Known history of hemorrhoids with last C-scope last year. EGD negative for bleeding. GI consulted and following. (11) Peripheral vascular disease Current Visit: Yes Status: Chronic ABIs abnormal. TCPO2 consistent with healing. Vascular consulted. - Subjective Interval history: Patient seen and examined with family at the bedside. No acute events noted overnight. Status post SUDEEP this morning. Patient appears improved today. Denies fevers, chills, or rigors. Denies chest pain, shortness of breath, or cough. Denies nausea, vomiting, or diarrhea. Denies abdominal pain or urinary complaints. Denies oral thrush or skin rashes. Reports mild pain in her left ankle. Per family, patient's mental status is improved. Status post repeat washout 03/29/18. Infect Dis PN-Objective Data - Labs CBC & Chem 7: 03/31/18 11:40 03/31/18 05:04 Labs: Laboratory Results - last 24 hr 03/30/18 03/30/18 03/30/18 08:52 08:52 17:15 WBC 13.6 H RBC 3.17 L Hgb 9.2 L Hct 28.2 L MCV 89.0 MCH 29.0 MCHC 32.6 RDW 15.6 H Plt Count 412 H MPV 12.0 Immature Gran % 0.7 Seg Neutrophils % 74.0 Lymphocytes % 14.3 Monocytes % 8.5 Eosinophils % 2.1 Basophils % 0.4 Neutrophils # 10.0 H Lymphocytes # 1.9 Monocytes # 1.2 Eosinophils # 0.3 Basophils # 0.1 Nucleated RBCs/100 WBC 0.1 H Immature Plt Fraction 6.4 H Heparin Anti-Xa, Unfract 0.00 L Sodium 139 Potassium 4.7 Chloride 115 H Carbon Dioxide BUN 48 H Creatinine 1.38 H Est GFR ( Amer) 45 L Est GFR (Non-Af Amer) 37 L BUN/Creatinine Ratio 35 H Glucose 138 H POC Glucose Calculated Osmolality 303 H Calcium 8.6 03/30/18 03/31/18 03/31/18 19:48 05:04 05:04 WBC 11.8 H RBC 3.33 L Hgb 9.6 L Hct 29.5 L MCV 88.6 MCH 28.8 MCHC 32.5 RDW 15.6 H Plt Count 429 H MPV 12.3 Immature Gran % 1.2 Seg Neutrophils % 64.0 Lymphocytes % 21.9 Monocytes % 10.0 Eosinophils % 2.4 Basophils % 0.5 Neutrophils # 7.6 Lymphocytes # 2.6 Monocytes # 1.2 Eosinophils # 0.3 Basophils # 0.1 Nucleated RBCs/100 WBC 0.3 H Immature Plt Fraction Heparin Anti-Xa, Unfract Sodium 139 Potassium 4.9 Chloride 115 H Carbon Dioxide 18 L BUN 50 H Creatinine 1.39 H Est GFR ( Amer) 44 L Est GFR (Non-Af Amer) 36 L BUN/Creatinine Ratio 36 H Glucose 270 H POC Glucose 213 H Calculated Osmolality 311 H Calcium 8.6 Cultures: Cultures 03/25/18 18:56 Wound Culture - Final Left Foot Proteus mirabilis Staphylococcus aureus 03/25/18 15:06 Blood Culture - Final Peripheral Venipuncture Staphylococcus aureus 03/25/18 14:58 Blood Culture - Final Peripheral Venipuncture Streptococcus anginosus 03/27/18 12:27 Urine Culture - Final Urine,Clean Catch No growth. 03/25/18 18:56 Anaerobic Culture - Preliminary Left Foot At this time, no anaerobic growth is present. The culture will be finalized after 5 days of incubation. 03/25/18 18:56 Gram Stain - Final Left Foot 03/25/18 15:45 Wound Culture - Final Right Foot Staphylococcus aureus 03/27/18 02:53 Blood Culture - Preliminary Peripheral Venipuncture Culture is incubating and being continuously monitored for growth. Final report to follow. 03/27/18 02:53 Blood Culture - Preliminary Peripheral Venipuncture Culture is incubating and being continuously monitored for growth. Final report to follow. Serology 03/28/18 03/27/18 03/25/18 Range/Units 12:05 12:27 15:06 Urine Color Dark Yellow (Yellow) Urine Clarity Turbid A (Clear) Urine pH 5.5 (5.0-8.0) pH Units Ur Specific [place] 1.020 (1.010-1.025) Urine Protein Trace (Neg-Trace) mg/dL Urine Glucose (UA) Normal (Normal) mg/dL Urine Ketones Negative (Negative) mg/dL Urine Blood Small H (Negative) Urine Nitrite Negative (Negative) Urine Bilirubin Negative (Negative) Urine Urobilinogen Normal (Normal) mg/dL Ur Leukocyte Esterase Large H (Negative) Urine Microscopic RBC 0-3 (0-3) per hpf Urine Microscopic WBC TNTC H (0-3) per hpf Ur Squamous Epith Cells Moderate H (None-Few) per lpf Urine Bacteria None Seen (None-Few) per hpf Hyaline Casts None Seen (None-Few) per lpf Urine Yeast Many H (None Seen) per hpf Ur Culture Indicated? YES A (NO) Stool Occult Blood Positive A (Negative) A. baumannii (PCR) Not Detected (Not Detect) Cris albicans (PCR) Not Detected (Not Detect) C. glabrata (PCR) Not Detected (Not Detect) C. krusei (PCR) Not Detected (Not Detect) C. parapsilosis (PCR) Not Detected (Not Detect) C. tropicalis (PCR) Not Detected (Not Detect) Enterobacteriac sp PCR Not Detected (Not Detect) E. cloacae complex PCR Not Detected (Not Detect) Enterococcus sp PCR Not Detected (Not Detect) E. coli (PCR) Not Detected (Not Detect) H. influenzae (PCR) Not Detected (Not Detect) Klebsiella oxytoca PCR Not Detected (Not Detect) Klebsiella pneumoniae Not Detected (Not Detect) List. monocytogenes PCR Not Detected (Not Detect) N. meningitidis (PCR) Not Detected (Not Detect) Proteus species (PCR) Not Detected (Not Detect) Serratia marcescens PCR Not Detected (Not Detect) Staphylococcus sp PCR DETECTED A (Not Detect) Staph aureus (PCR) DETECTED A (Not Detect) mecA-Methicil Res Gene Not Detected (Not Detect) Streptococcus sp PCR Not Detected (Not Detect) Group A Strep DNA Not Detected (Not Detect) Group B Strep (PCR) Not Detected (Not Detect) Strep pneumoniae (PCR) Not Detected (Not Detect) P. aeruginosa (PCR) Not Detected (Not Detect) Tammy/B-Vanco Res Genes N/A (Not Detect) KPC (blaKPC) Detect PCR N/A (Not Detect) 03/25/18 Range/Units 14:58 Urine Color (Yellow) Urine Clarity (Clear) Urine pH (5.0-8.0) pH Units Ur Specific [place] (1.010-1.025) Urine Protein (Neg-Trace) mg/dL Urine Glucose (UA) (Normal) mg/dL Urine Ketones (Negative) mg/dL Urine Blood (Negative) Urine Nitrite (Negative) Urine Bilirubin (Negative) Urine Urobilinogen (Normal) mg/dL Ur Leukocyte Esterase (Negative) Urine Microscopic RBC (0-3) per hpf Urine Microscopic WBC (0-3) per hpf Ur Squamous Epith Cells (None-Few) per lpf Urine Bacteria (None-Few) per hpf Hyaline Casts (None-Few) per lpf Urine Yeast (None Seen) per hpf Ur Culture Indicated? (NO) Stool Occult Blood (Negative) A. baumannii (PCR) Not Detected (Not Detect) Cris albicans (PCR) Not Detected (Not Detect) C. glabrata (PCR) Not Detected (Not Detect) C. krusei (PCR) Not Detected (Not Detect) C. parapsilosis (PCR) Not Detected (Not Detect) C. tropicalis (PCR) Not Detected (Not Detect) Enterobacteriac sp PCR Not Detected (Not Detect) E. cloacae complex PCR Not Detected (Not Detect) Enterococcus sp PCR Not Detected (Not Detect) E. coli (PCR) Not Detected (Not Detect) H. influenzae (PCR) Not Detected (Not Detect) Klebsiella oxytoca PCR Not Detected (Not Detect) Klebsiella pneumoniae Not Detected (Not Detect) List. monocytogenes PCR Not Detected (Not Detect) N. meningitidis (PCR) Not Detected (Not Detect) Proteus species (PCR) Not Detected (Not Detect) Serratia marcescens PCR Not Detected (Not Detect) Staphylococcus sp PCR Not Detected (Not Detect) Staph aureus (PCR) Not Detected (Not Detect) mecA-Methicil Res Gene N/A (Not Detect) Streptococcus sp PCR DETECTED A (Not Detect) Group A Strep DNA Not Detected (Not Detect) Group B Strep (PCR) Not Detected (Not Detect) Strep pneumoniae (PCR) Not Detected (Not Detect) P. aeruginosa (PCR) Not Detected (Not Detect) Tammy/B-Vanco Res Genes N/A (Not Detect) KPC (blaKPC) Detect PCR N/A (Not Detect) Exam - Constitutional Vitals: Temp Pulse Resp BP Pulse Ox 97.7 F 75 18 114/62 99 03/31/18 09:48 03/31/18 09:48 03/31/18 09:48 03/31/18 09:48 03/31/18 09:48 General appearance: cooperative, no acute distress, obese - Head Head exam: Present: atraumatic, normal inspection, normocephalic - Eye Eye exam: Present: EOMI, normal appearance, PERRL Pupils: Present: normal accommodation Additional comments: No subconjunctival hemorrhage noted. - ENT ENT exam: Present: mucous membranes moist - Neck Neck exam: Present: normal inspection - Respiratory Respiratory exam: Present: CTAB. Absent: decreased breath sounds, rales, respiratory distress, rhonchi, wheezes - Cardiovascular Cardiovascular exam: Present: RRR, +S1, +S2 - GI/Abdominal GI/Abdominal exam: Present: distended (obese), normal bowel sounds, soft. Absent: tenderness - Extremities Exam Extremities exam: Absent: joint swelling, normal inspection (left foot dressing C/D/I), pedal edema, tenderness - Neurological Exam Neurological exam: Present: alert, oriented X3, no focal deficits - Psychiatric Psychiatric exam: Present: normal affect, normal mood - Skin Skin exam: Present: dry, intact, normal color, warm Consult Discharge Plan - Plan Referrals: Isabelle Joseph PRINCIPAL EMBEDDED SOFTWARE ENGINEER [Primary Care Provider] - - Attending Attestation I examined this patient and my medical decision-making was reviewed with the Resident Physician. I agree with the documented findings, disposition and treatment plan as described except to the extent set forth below.
--- NOTE | 2018-03-31 11:50 | Event Note ---
Date of Encounter: 03/31/18 Time of Encounter: 11:30 - Cardiology Event Note Discussed and reviewed patient/labs with Dr. Sebastian Hutchison. Cardiology consulted for incidental finding of afib. Anticoagulation recommended, Heparin gtt started as inpatient but was then stopped due to worsening anemia, positive occult stool. Reviewed EGD results with Dr. Sebastian Hutchison; mulitple non-bleeding duodenal ulcers noted. No active bleeding. Would recommend starting oral anticoagulation (Coumadin, hx of CKD) with goal of INR 2-3 when okay from GI and surgery standpoint. Recommend pharmacy to dose and inpatient and recommend referral to [facility] for management in the outpatient setting. Recommend social work consult for discharge planning--home health care vs. SNF/inpt rehab. Will coordinate outpatient follow-up with [facility]. Please call with questions.
[2018-03-31 11:59] LABS: Hematocrit 27.3 % (35.3-44.9); Hemoglobin 8.7 g/dL (11.5-15.4); Mean Corpuscular HGB Conc 31.9 g/dL (31.6-35.5); Mean Corpuscular Hemoglobin 28.6 pg (28.0-33.3); Mean Corpuscular Volume 89.8 fL (83.0-100.0); Mean Platelet Volume 11.6 fL (9.4-12.4); Platelet Count 406 K/mcL (140-400); Red Blood Count 3.04 M/mcL (3.82-4.97); Red Cell Distribution Width 15.7 % (11.5-14.5)
[2018-03-31 12:08] LABS: INR 1.4
[2018-03-31] MEDS: Heparin 25,000 UNIT/500 ML D5W 25,000 UNIT/500 ML BAG IVC SCH (12:43)
--- NOTE | 2018-03-31 12:51 | Podiatry Progress Note ---
Date of Encounter: 03/31/18 Time of Encounter: 12:00 - Assessment and Plan (1) Gas gangrene Current Visit: Yes Status: Acute no necrosis of skin. betadine applied to maceration. protect medial ankle with allevyn. discussed wound still has to heal and if wound heals tendon rebalancing necessary for functionality of amputation. next wound vac change tuesday. patient at risk for leg amputation. (2) Diabetes mellitus with foot ulcer Current Visit: Yes Status: Chronic see above Qualifiers: Diabetes mellitus type: type 2 Diabetes mellitus termite inspector insulin use: with termite inspector use Qualified Code(s): E11.621 - Type 2 diabetes mellitus with foot ulcer; L97.509 - Non-pressure chronic ulcer of other part of unspecified foot with unspecified severity; Z79.4 - retirement (current) use of insulin Subjective Principal diagnosis: Afib, left foot partial amputation Interval history: s/p left foot Chopart's amputation. pain controlled. wound vac is on and functioning. Objective - Vital Signs Vital Signs: Vital Signs Temp Pulse Resp BP Pulse Ox 03/31/18 11:45 98.7 F 86 18 123/71 99 03/31/18 09:48 97.7 F 75 18 114/62 99 03/31/18 07:00 126/67 03/31/18 06:50 98.1 F 112 95 03/30/18 19:55 119 114/66 98 03/30/18 16:55 98.3 F 77 16 123/61 93 03/30/18 15:56 97.9 F 101 18 108/64 100 03/30/18 14:47 97.9 F 101 101 103/63 100 03/30/18 14:35 98.1 F 76 16 153/66 94 03/30/18 13:50 127/86 Intake and Output 03/30/18 03/31/18 03/31/18 23:59 07:59 15:59 Intake Total 215 / 215 Output Total 3 / 3 100 / 100 Balance -5 / -5 -3 / -3 115 / 115 Intake: IV Fluids 215 / 215 0.9 % Sodium Chloride 500 ML @ 215 / 215 150 mls/hr IVC .Q3H20M ONE Rx#: [id number] Output: Urine 100 / 100 Wound Drainage 3 / 3 0 / 0 Left Foot 5 / 5 3 / 3 0 / 0 Other: Weight 86.636 kg Blood Glucose* 128 242 176 Patient Weight 03/31/18 23:59 Weight 86.636 kg - Exam Exam: no necrosis of the skin, mild maceration along incision. no purulence expressed. - Lab Result Diagrams: 03/31/18 11:40 03/31/18 05:04 Labs: Abnormal lab results WBC 13.4 K/mcL (4.3-11.1) H 03/31/18 11:40 RBC 3.04 M/mcL (3.82-4.97) L 03/31/18 11:40 Hgb 8.7 g/dL (11.5-15.4) L 03/31/18 11:40 Hct 27.3 % (35.3-44.9) L 03/31/18 11:40 RDW 15.7 % (11.5-14.5) H 03/31/18 11:40 Plt Count 406 K/mcL (140-400) H 03/31/18 11:40 Nucleated RBCs/100 WBC 0.3 /100 WBC (0) H 03/31/18 05:04 Platelet Estimate Increased (Normal) H 03/25/18 14:58 Immature Plt Fraction 6.4 % (1.1-6.1) H 03/30/18 08:52 ESR >= 130 mm/hr (0-15) H 03/25/18 14:58 PT 16.0 Seconds (9.4-12.1) H 03/31/18 11:40 Heparin Anti-Xa, Unfract 0.00 IU/mL (0.30-0.70) L 03/31/18 11:40 Chloride 115 mEq/L (98-107) H 03/31/18 05:04 Carbon Dioxide 18 mEq/L (23-29) L 03/31/18 05:04 BUN 50 mg/dL (8-23) H 03/31/18 05:04 Creatinine 1.39 mg/dL (0.60-1.20) H 03/31/18 05:04 Est GFR ( Amer) 44 (> 60) L 03/31/18 05:04 Est GFR (Non-Af Amer) 36 (> 60) L 03/31/18 05:04 BUN/Creatinine Ratio 36 (6-26) H 03/31/18 05:04 Glucose 270 mg/dL (70-105) H 03/31/18 05:04 POC Glucose 213 mg/dL (70-99) H 03/30/18 19:48 Calculated Osmolality 311 (280-300) H 03/31/18 05:04 Iron 31 mcg/dL (50-170) L 03/28/18 03:23 Transferrin 105 mg/dL (203-362) L 03/28/18 03:23 Ferritin 293 ng/mL (10-120) H 03/29/18 12:12 Creatine Kinase 25 Units/L (30-223) L 03/25/18 14:58 C-Reactive Protein 232 mg/L (Less than 10) H 03/25/18 14:58 Urine Clarity Turbid (Clear) A 03/27/18 12:27 Urine Blood Small (Negative) H 03/27/18 12:27 Ur Leukocyte Esterase Large (Negative) H 03/27/18 12:27 Urine Microscopic WBC TNTC per hpf (0-3) H 03/27/18 12:27 Ur Squamous Epith Cells Moderate per lpf (None-Few) H 03/27/18 12:27 Urine Yeast Many per hpf (None Seen) H 03/27/18 12:27 Ur Culture Indicated? YES (NO) A 03/27/18 12:27 Stool Occult Blood Positive (Negative) A 03/28/18 12:05 Vancomycin Trough 17 mcg/mL (5-10) H 03/28/18 03:23 Staphylococcus sp PCR DETECTED (Not Detect) A 03/25/18 15:06 Staph aureus (PCR) DETECTED (Not Detect) A 03/25/18 15:06 Consult Discharge Plan - Plan Referrals: Isabelle Joseph, PRIMARY HEALTH CARE NURSE [Primary Care Provider] -
[2018-03-31] MEDS: Sucralfate 1 GM TABLET PO SCH (16:55)
[2018-03-31] MEDS: Dorzolamide/Timolol OPTH 10 ML BOTTLE BOTH EYES SCH (20:06)
[2018-04-01] MEDS: 0.9 % Sodium Chloride 250 ML IVC SCH ×3 (01:08→21:44)
[2018-04-01] MEDS: ceFAZolin 1,000 MG in Water for inj. (sterile) 20 ML 10 ML IVP SCH ×2 (05:37→16:45)
[2018-04-01] MEDS: *HR* OxyCODONE Immed Rel 5 MG TABLET PO PRN ×2 (08:04→20:28)
[2018-04-01] MEDS: Sucralfate 1 GM TABLET PO SCH ×2 (08:04→16:55)
[2018-04-01] MEDS: Lactobacillus 1 EACH CAP.SPRINK PO SCH (08:04)
[2018-04-01] MEDS: Dorzolamide/Timolol OPTH 10 ML BOTTLE BOTH EYES SCH ×2 (08:04→20:27)
[2018-04-01] MEDS: Insulin LISPRO 300 UNITS/3 ML VIAL SQ SCH ×4 (08:05→21:48)
[2018-04-01] MEDS: Insulin NPH/REG 70/30 100 UNIT/ML (x5UNIT) SQ SCH ×2 (08:05→16:43)
[2018-04-01] MEDS: Nystatin POWDER 30 GM BOTTLE TP SCH ×3 (08:05→20:27)
[2018-04-01] MEDS: Heparin 25,000 UNIT/500 ML D5W 25,000 UNIT/500 ML BAG IVC SCH (09:56)
--- NOTE | 2018-04-01 12:13 | Internal Med Progress Note ---
Hospitalist Progress Note - Encounter Date of Encounter: 04/01/18 Time of Encounter: 12:00 - Subjective Interval History: Patient seen and examined this morning. Denies foot pain. Family at bedside. Sleepy this morning. No reported sob, cp, abdominal pain, N/V/D. Pain controlled per family. - Exam Vitals: Temp Pulse Resp BP Pulse Ox 97.7 F 94 17 139/77 96 04/01/18 11:26 04/01/18 11:26 04/01/18 11:26 04/01/18 11:26 04/01/18 11:26 Exam: Gen: AO x 2, in NAD HEENT: NC/AT, left eye blind Neck: Supple, no JVD Lungs: CTA b/l, No adventitious lung sounds Heart: Irregularly irregular rhythm, S1,S2, no MRG Abd: Soft, Non tenderness, non distended. Obese Ext: Left foot s/p surgery, well dressed with wound vac. Neuro: decreased sensation both legs. - Assessment and Plan (1) CKD (chronic kidney disease) stage 5, GFR less than 15 ml/min Current Visit: No Status: Chronic (2) DVT prophylaxis Current Visit: No Status: Acute (3) Diabetes Current Visit: No Status: Acute (4) Leukocytosis Current Visit: Yes Status: Acute (5) Gas gangrene Current Visit: Yes Status: Acute (6) Diabetes mellitus with foot ulcer Current Visit: Yes Status: Chronic (7) CAD (coronary artery disease) Current Visit: Yes Status: Chronic (8) A-fib Current Visit: Yes Status: Acute (9) Bacteremia Current Visit: Yes Status: Acute (10) UTI (urinary tract infection) Current Visit: Yes Status: Ruled-out - Summary of Assessment and Plan Summary of Assessment and Plan: Diabetes mellitus with Lt foot ulcer and gas gangrene - Severe gas gangrene. - S/P partial lt foot amputation, I/D by podiatry 03/25. 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 - Was started Vanco, zosyn, and Clindamycin. Vanc and clindamycin stopped. Now switched to cefazolin 1g q12 per ID. May need 6-8 weeks if foot is salvagable. - vascular following. May consider angiography if not improving and if needs BKA. - Podiatry following. wound vac change on tuesday. Recommendations appreciated. - ID following - PT/OT following. Recommended SNF. Family agrees and working with marriage and family social worker for placement. - Started on diet and per family eating well. Protein supplementation started. - Hyperglycmic somewhat. Will increase long acting insulin to 15 to adjust. New A-fib - Incidentally found in ER. Pt denies hx of A Fib. - HR is well controlled. BB or cardizem held due to low BP. IV prn metoprolol - Echo shows LVEF 45%. intermediate DD. SUDEEP with EF of 25-30%. Severe global RV hypokinesis. Mod PulHTN. No vegetations. - cardio following. Recommended AC. Restarted on Heparin. Will monitor Hb. To be switched to coumadin on Discharge. . Anemia - Baseline of 9-10. Possible component of concentration with bacteremia, anemia of chronic dz and CKD or GI bleed - Started on Heparin for afib. stool occult positive. no h/o Gi bleed. Colonoscopy last year with hemorrhoids. - s/p 1 PRBC. GI following. Colonoscopy not needed per GI. Had EGD 03/30 - EGD showed gastritis, esophagitis and non bleeding duodenal ulcer. Started on PPI and carafate. Path pending. - H&H stable. Will monitor for now. VALERIY on CKD - Now resolved - Cr is about at her baseline. CAD - No chest pain. Cont home meds. Bacteremia - 1/2 Blood culture on 03/25 for MSSA and 1/2 for S.Anginosus(possible contaminant). - Now switched to cefazolin - TTE with EF of 45, intermediate DD, borderline PHTN. No signs of endocarditis on exam and SUDEEP - repeat blood culture 03/27/18 NGTD. - SUDEEP today without vegetations. - ID following UTI - C/O RLQ pain, CT abd/pelvis shows ? cystitis, UA shows ? UTI. - urine culture NGTD. DVT prophylaxis - Heparin SC - Time Spent with Patient Total time spent is greater than 50% in coordination of care (as documented) at patient's floor/unit and/or counseling patient: Internal Medicine: Result - Labs CBC & Chem 7: 03/31/18 11:40 03/31/18 05:04 Labs: Short CBC 03/31/18 Range/Units 11:40 WBC 13.4 H (4.3-11.1) K/mcL Hgb 8.7 L (11.5-15.4) g/dL Hct 27.3 L (35.3-44.9) % Plt Count 406 H (140-400) K/mcL - ABG Interpretation ABG results: PT/INR, D-dimer PT 16.0 Seconds (9.4-12.1) H 03/31/18 11:40 Consult Discharge Plan - Plan Referrals: Isabelle Joseph, M[employer] LOAN REVIEWER [Primary Care Provider] - (3) Diabetes Qualifiers: Diabetes mellitus type: type 2 Diabetes mellitus forensic computer examiner insulin use: with forensic computer examiner use Diabetes mellitus complication status: with kidney complications Diabetes mellitus complication detail: with chronic kidney disease Chronic kidney disease stage: stage 5, not on chronic dialysis Qualified Code(s): E11.22 - Type 2 diabetes mellitus with diabetic chronic kidney disease; N18.5 - Chronic kidney disease, stage 5; Z79.4 - terminal clerk (current) use of insulin (4) Leukocytosis Qualifiers: Leukocytosis type: other Qualified Code(s): D72.828 - Other elevated white blood cell count (6) Diabetes mellitus with foot ulcer Qualifiers: Diabetes mellitus type: type 2 Diabetes mellitus forensic computer examiner insulin use: with mcc use Qualified Code(s): E11.621 - Type 2 diabetes mellitus with foot ulcer; L97.509 - Non-pressure chronic ulcer of other part of unspecified foot with unspecified severity; Z79.4 - terminal clerk (current) use of insulin (7) CAD (coronary artery disease) Qualifiers: Coronary Disease-Associated Artery/Lesion type: bypass graft [place] vs. transplanted heart: [place] heart Associated angina: without angina Qualified Code(s): I25.810 - Atherosclerosis of coronary artery bypass graft(s) without angina pectoris (8) A-fib Qualifiers: Atrial fibrillation type: persistent Qualified Code(s): I48.1 - Persistent atrial fibrillation (10) UTI (urinary tract infection) Qualifiers: Urinary tract infection type: acute cystitis Hematuria presence: without hematuria Qualified Code(s): N30.00 - Acute cystitis without hematuria
[2018-04-01] MEDS: *HR* Heparin 5,000 UNIT/ML VIAL IVP PRN (16:41)
[2018-04-02] MEDS: *HR* OxyCODONE Immed Rel 5 MG TABLET PO PRN (02:29)
[2018-04-02] MEDS: ceFAZolin 1,000 MG in Water for inj. (sterile) 20 ML 10 ML IVP SCH ×2 (04:40→17:20)
[2018-04-02 04:47] LABS: Basophils % 0.2 %; Eosinophils # 0.4 K/mcL (0.0-0.6); Eosinophils % 2.9 %; Hemoglobin 8.2 g/dL (11.5-15.4); Immature Granulocytes % 1.1 % (0-4); Lymphocytes # 2.6 K/mcL (0.6-4.6); Lymphocytes % 19.4 %; Mean Corpuscular HGB Conc 31.5 g/dL (31.6-35.5); Mean Corpuscular Hemoglobin 28.3 pg (28.0-33.3); Mean Corpuscular Volume 89.7 fL (83.0-100.0); Mean Platelet Volume 11.4 fL (9.4-12.4); Monocytes # 1.2 K/mcL (0.0-1.3); Monocytes % 8.7 %; Neutrophils # 9.1 K/mcL (1.6-8.9); Nucleated Red Blood Cells 0.1 /100 WBC (0); Platelet Count 392 K/mcL (140-400); Red Cell Distribution Width 15.9 % (11.5-14.5); Segmented Neutrophils % 67.7 %
[2018-04-02] MEDS: Ondansetron 4 MG/2 ML VIAL IVP PRN (05:49)
[2018-04-02] MEDS: 0.9 % Sodium Chloride 250 ML IVC SCH ×2 (06:50→17:21)
[2018-04-02] MEDS: Insulin LISPRO 300 UNITS/3 ML VIAL SQ SCH ×4 (08:19→20:21)
[2018-04-02] MEDS: Dorzolamide/Timolol OPTH 10 ML BOTTLE BOTH EYES SCH ×2 (08:20→20:20)
[2018-04-02] MEDS: Sucralfate 1 GM TABLET PO SCH ×2 (08:20→17:21)
[2018-04-02] MEDS: Nystatin POWDER 30 GM BOTTLE TP SCH ×3 (08:20→20:21)
[2018-04-02] MEDS: Lactobacillus 1 EACH CAP.SPRINK PO SCH (08:20)
[2018-04-02] MEDS: Pantoprazole 40 MG VIAL IVP SCH (08:20)
[2018-04-02] MEDS: Insulin NPH/REG 70/30 100 UNIT/ML (x5UNIT) SQ SCH ×2 (08:20→17:20)
--- NOTE | 2018-04-02 10:27 | Internal Med Progress Note ---
Hospitalist Progress Note - Encounter Date of Encounter: 04/02/18 Time of Encounter: 10:25 - Subjective Interval History: Patient seen and examined this morning. Denies foot pain. Awake and alert. Does not offer any complain. No reported sob, cp, abdominal pain, N/V/D. Bad non bloody, Non-tarry BM. Mild fever noted overnight. - Exam Vitals: Temp Pulse Resp BP Pulse Ox 98.5 F 84 16 127/63 95 04/02/18 06:54 04/02/18 06:54 04/02/18 06:54 04/02/18 06:54 04/02/18 06:54 Exam: Gen: AO x 2, in NAD HEENT: NC/AT, left eye blind Neck: Supple, no JVD Lungs: CTA b/l, No adventitious lung sounds Heart: Irregularly irregular rhythm, S1,S2, no MRG Abd: Soft, Non tenderness, non distended. Obese Ext: Left foot s/p surgery, dressed. Neuro: decreased sensation both legs. - Assessment and Plan (1) CKD (chronic kidney disease) stage 5, GFR less than 15 ml/min Current Visit: No Status: Chronic (2) DVT prophylaxis Current Visit: No Status: Acute (3) Diabetes Current Visit: No Status: Acute (4) Leukocytosis Current Visit: Yes Status: Acute (5) Gas gangrene Current Visit: Yes Status: Acute (6) Diabetes mellitus with foot ulcer Current Visit: Yes Status: Chronic (7) CAD (coronary artery disease) Current Visit: Yes Status: Chronic (8) A-fib Current Visit: Yes Status: Acute (9) Bacteremia Current Visit: Yes Status: Acute (10) UTI (urinary tract infection) Current Visit: Yes Status: Ruled-out - Summary of Assessment and Plan Summary of Assessment and Plan: Diabetes mellitus with Lt foot ulcer and gas gangrene - Severe gas gangrene. - S/P partial lt foot amputation, I/D by podiatry 03/25. 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 - Was started Vanco, zosyn, and Clindamycin. Vanc and clindamycin stopped. Now switched to cefazolin 1g q12 per ID. May need 6-8 weeks if foot is salvagable. - vascular following. May consider angiography if not improving and if needs BKA. - Podiatry following. wound vac change on tuesday. Recommendations appreciated. - ID following - PT/OT following. Recommended SNF. Family agrees and working with social worker masters for placement. - Started on diet and per family eating well. Protein supplementation started. - Sugar still slightly elevated. Will increase NPH to 20 to adjust. New A-fib - Incidentally found in ER. Pt denies hx of A Fib. - HR is well controlled. BB or cardizem held due to low BP. IV prn metoprolol - Echo shows LVEF 45%. intermediate DD. SUDEEP with EF of 25-30%. Severe global RV hypokinesis. Mod PulHTN. No vegetations. - cardio following. Recommended AC. Restarted on Heparin per discussion with GI. Will monitor Hb. Anemia - Baseline of 9-10. Possible component of concentration with bacteremia, anemia of chronic dz and CKD or GI bleed - Started on Heparin for afib. stool occult positive. no h/o Gi bleed. Colonoscopy last year with hemorrhoids. - s/p 1 PRBC. GI following. Colonoscopy not needed per GI. Had EGD 03/30 - EGD showed gastritis, esophagitis and non bleeding duodenal ulcer. Started on PPI and carafate. Path pending. - H&H stable. Will monitor for now. VALERIY on CKD - Now resolved - Cr is about at her baseline. CAD - No chest pain. Cont home meds. Bacteremia - 1/2 Blood culture on 03/25 for MSSA and 1/2 for S.Anginosus(possible contaminant). - Now switched to cefazolin - TTE with EF of 45, intermediate DD, borderline PHTN. No signs of endocarditis on exam and SUDEEP - repeat blood culture 03/27/18 NGTD. - SUDEEP without vegetations. - ID following UTI - C/O RLQ pain, CT abd/pelvis shows ? cystitis, UA shows ? UTI. - urine culture NGTD. DVT prophylaxis - Heparin SC - Time Spent with Patient Total time spent is greater than 50% in coordination of care (as documented) at patient's floor/unit and/or counseling patient: Internal Medicine: Result - Labs CBC & Chem 7: 04/02/18 04:25 03/31/18 05:04 Labs: Short CBC 04/02/18 Range/Units 04:25 WBC 13.4 H (4.3-11.1) K/mcL Hgb 8.2 L (11.5-15.4) g/dL Hct 26.0 L (35.3-44.9) % Plt Count 392 (140-400) K/mcL Neutrophils # 9.1 H (1.6-8.9) K/mcL - ABG Interpretation ABG results: PT/INR, D-dimer PT 16.0 Seconds (9.4-12.1) H 03/31/18 11:40 Consult Discharge Plan - Plan Referrals: Isabelle Joseph, CROZE CUTTER [Primary Care Provider] - (3) Diabetes Qualifiers: Diabetes mellitus type: type 2 Diabetes mellitus alf insulin use: with assistant terminal manager use Diabetes mellitus complication status: with kidney complications Diabetes mellitus complication detail: with chronic kidney disease Chronic kidney disease stage: stage 5, not on chronic dialysis Qualified Code(s): E11.22 - Type 2 diabetes mellitus with diabetic chronic kidney disease; N18.5 - Chronic kidney disease, stage 5; Z79.4 - [facility] (current) use of insulin (4) Leukocytosis Qualifiers: Leukocytosis type: other Qualified Code(s): D72.828 - Other elevated white blood cell count (6) Diabetes mellitus with foot ulcer Qualifiers: Diabetes mellitus type: type 2 Diabetes mellitus assistant terminal manager insulin use: with alf use Qualified Code(s): E11.621 - Type 2 diabetes mellitus with foot ulcer; L97.509 - Non-pressure chronic ulcer of other part of unspecified foot with unspecified severity; Z79.4 - middle or intermediate school principal (current) use of insulin (7) CAD (coronary artery disease) Qualifiers: Coronary Disease-Associated Artery/Lesion type: bypass graft [place] vs. transplanted heart: [place] heart Associated angina: without angina Qualified Code(s): I25.810 - Atherosclerosis of coronary artery bypass graft(s) without angina pectoris (8) A-fib Qualifiers: Atrial fibrillation type: persistent Qualified Code(s): I48.1 - Persistent atrial fibrillation (10) UTI (urinary tract infection) Qualifiers: Urinary tract infection type: acute cystitis Hematuria presence: without hematuria Qualified Code(s): N30.00 - Acute cystitis without hematuria
--- NOTE | 2018-04-02 11:55 | Podiatry Progress Note ---
Date of Encounter: 04/02/18 Time of Encounter: 11:30 - Assessment and Plan (1) Gas gangrene Current Visit: Yes Status: Acute patient in no acute distress. wound vac functioning at 125 mm Hg continuous. small amount of serosanguinous drainage in cannister. next wound vac change tuesday. patient at risk for leg amputation. (2) Diabetes mellitus with foot ulcer Current Visit: Yes Status: Chronic see above Qualifiers: Diabetes mellitus type: type 2 Diabetes mellitus half-way insulin use: with termite renewal inspector use Qualified Code(s): E11.621 - Type 2 diabetes mellitus with foot ulcer; L97.509 - Non-pressure chronic ulcer of other part of unspecified foot with unspecified severity; Z79.4 - jail (current) use of insulin Subjective Principal diagnosis: Afib, left foot partial amputation Interval history: s/p left foot Chopart's amputation. pain controlled. wound vac is on and functioning. Objective - Vital Signs Vital Signs: Vital Signs Temp Pulse Resp BP Pulse Ox 04/02/18 06:54 98.5 F 84 16 127/63 95 04/02/18 04:37 98.5 F 83 16 118/58 97 04/02/18 00:42 98.0 F 97 16 102/51 96 04/01/18 20:52 100.1 F H 85 16 139/66 97 04/01/18 15:55 98.7 F 95 15 132/73 97 Intake and Output 04/01/18 04/02/18 04/02/18 23:59 07:59 15:59 Intake Total 439 / 439 452 / 452 110 / 110 Output Total 25 / 25 0 / 0 Balance 414 / 414 452 / 452 110 / 110 Intake: IV Fluids 439 / 439 452 / 452 0.9 % Sodium Chloride 250 ML @ 250 / 250 250 / 250 25 mls/hr IVC .Q10H [facility] Rx#: [id number] Heparin 25,000 UNIT/500 ML D5W 179 / 179 202 / 202 25,000 unit In 500 ml @ 14 UNIT /KG/HR 24.258 mls/hr IVC . [id number] [facility] Rx#:[id number] Ancef 1,000 MG In Water for inj . (sterile) 10 ML @ 200 mls/hr IVP Q12H [facility] Rx#:[id number] Oral 0 / 0 0 / 0 110 / 110 Output: Urine 0 / 0 0 / 0 Wound Drainage Left Foot Other: Meal Breakfast Percent of Meal Consumed 30% Stool Size Smear Large Stool Consistency loose Stool Color Brown # Urine Diapers 1 1 # Bowel Movement Diapers 1 1 Weight 90.6 kg Blood Glucose* 242 254 Patient Weight 04/02/18 23:59 Weight 90.6 kg - Lab Result Diagrams: 04/02/18 04:25 03/31/18 05:04 Labs: Abnormal lab results WBC 13.4 K/mcL (4.3-11.1) H 04/02/18 04:25 RBC 2.90 M/mcL (3.82-4.97) L 04/02/18 04:25 Hgb 8.2 g/dL (11.5-15.4) L 04/02/18 04:25 Hct 26.0 % (35.3-44.9) L 04/02/18 04:25 MCHC 31.5 g/dL (31.6-35.5) L 04/02/18 04:25 RDW 15.9 % (11.5-14.5) H 04/02/18 04:25 Neutrophils # 9.1 K/mcL (1.6-8.9) H 04/02/18 04:25 Nucleated RBCs/100 WBC 0.1 /100 WBC (0) H 04/02/18 04:25 Platelet Estimate Increased (Normal) H 03/25/18 14:58 Immature Plt Fraction 6.4 % (1.1-6.1) H 03/30/18 08:52 ESR >= 130 mm/hr (0-15) H 03/25/18 14:58 PT 16.0 Seconds (9.4-12.1) H 03/31/18 11:40 Heparin Anti-Xa, Unfract 0.83 IU/mL (0.30-0.70) H 04/02/18 04:25 Chloride 115 mEq/L (98-107) H 03/31/18 05:04 Carbon Dioxide 18 mEq/L (23-29) L 03/31/18 05:04 BUN 50 mg/dL (8-23) H 03/31/18 05:04 Creatinine 1.39 mg/dL (0.60-1.20) H 03/31/18 05:04 Est GFR ( Amer) 44 (> 60) L 03/31/18 05:04 Est GFR (Non-Af Amer) 36 (> 60) L 03/31/18 05:04 BUN/Creatinine Ratio 36 (6-26) H 03/31/18 05:04 Glucose 270 mg/dL (70-105) H 03/31/18 05:04 POC Glucose 242 mg/dL (70-99) H 04/01/18 20:50 Calculated Osmolality 311 (280-300) H 03/31/18 05:04 Iron 31 mcg/dL (50-170) L 03/28/18 03:23 Transferrin 105 mg/dL (203-362) L 03/28/18 03:23 Ferritin 293 ng/mL (10-120) H 03/29/18 12:12 Creatine Kinase 25 Units/L (30-223) L 03/25/18 14:58 C-Reactive Protein 232 mg/L (Less than 10) H 03/25/18 14:58 Urine Clarity Turbid (Clear) A 03/27/18 12:27 Urine Blood Small (Negative) H 03/27/18 12:27 Ur Leukocyte Esterase Large (Negative) H 03/27/18 12:27 Urine Microscopic WBC TNTC per hpf (0-3) H 03/27/18 12:27 Ur Squamous Epith Cells Moderate per lpf (None-Few) H 03/27/18 12:27 Urine Yeast Many per hpf (None Seen) H 03/27/18 12:27 Ur Culture Indicated? YES (NO) A 03/27/18 12:27 Stool Occult Blood Positive (Negative) A 03/28/18 12:05 Vancomycin Trough 17 mcg/mL (5-10) H 03/28/18 03:23 Staphylococcus sp PCR DETECTED (Not Detect) A 03/25/18 15:06 Staph aureus (PCR) DETECTED (Not Detect) A 03/25/18 15:06 Microbiology, Last 48 Hours 03/25/18 18:56 Anaerobic Culture - Preliminary Left Foot At this time, no anaerobic growth is present. The culture will be finalized after 5 days of incubation. 03/27/18 02:53 Blood Culture - Final Peripheral Venipuncture No growth. Final report. 03/27/18 02:53 Blood Culture - Final Peripheral Venipuncture No growth. Final report. Consult Discharge Plan - Plan Referrals: Isabelle Joseph CNP [Primary Care Provider] -
[2018-04-02] MEDS: *HR* Heparin 5,000 UNIT/ML VIAL IVP PRN ×2 (12:53→20:07)
[2018-04-02] MEDS: Heparin 25,000 UNIT/500 ML D5W 25,000 UNIT/500 ML BAG IVC SCH (22:49)
[2018-04-03 02:19] LABS: Hematocrit 25.5 % (35.3-44.9); Hemoglobin 8.3 g/dL (11.5-15.4)
[2018-04-03] MEDS: *HR* Heparin 5,000 UNIT/ML VIAL IVP PRN (02:37)
[2018-04-03] MEDS: 0.9 % Sodium Chloride 250 ML IVC SCH (03:35)
[2018-04-03] MEDS: *HR* OxyCODONE Immed Rel 5 MG TABLET PO PRN ×2 (03:38→18:36)
[2018-04-03] MEDS: ceFAZolin 1,000 MG in Water for inj. (sterile) 20 ML 10 ML IVP SCH (05:05)
[2018-04-03] MEDS: Insulin LISPRO 300 UNITS/3 ML VIAL SQ SCH ×4 (08:22→20:54)
[2018-04-03] MEDS: Nystatin POWDER 30 GM BOTTLE TP SCH ×3 (08:28→19:35)
[2018-04-03] MEDS: Sucralfate 1 GM TABLET PO SCH ×2 (08:29→15:44)
[2018-04-03] MEDS: Pantoprazole 40 MG VIAL IVP SCH (08:29)
[2018-04-03] MEDS: Insulin NPH/REG 70/30 100 UNIT/ML (x5UNIT) SQ SCH ×2 (08:29→18:10)
[2018-04-03] MEDS: Dorzolamide/Timolol OPTH 10 ML BOTTLE BOTH EYES SCH ×2 (08:29→19:34)
[2018-04-03] MEDS: Lactobacillus 1 EACH CAP.SPRINK PO SCH (08:29)
--- NOTE | 2018-04-03 10:49 | Infectious Disease Progress No ---
Date of Encounter: 04/03/18 Time of Encounter: 10:47 - Assessment and Plan (1) Leukocytosis Current Visit: Yes Status: Acute WBC elevated at 26 on admission. Likely secondary to left foot infection and possible UTI. Improved. Blood cultures drawn 03/25/18 are positive 1/2 sets for MSSA and 1/2 sets for S. anginosus. Repeat blood cultures drawn 03/27/18 are negative x 2 sets. Check CBC now. Qualifiers: Leukocytosis type: other Qualified Code(s): D72.828 - Other elevated white blood cell count (2) Bacteremia Current Visit: Yes Status: Acute Causative organism: MSSA and S. anginosus. Not sure if the S. anginosus is a true infection vs. contaminant since no other cultures are positive for this. Source: likely the left foot ulcer. Blood cultures drawn 03/25/18 are positive 1/2 sets for MSSA and 1/2 sets for S. anginosus. Repeat blood cultures drawn 03/27/18 are negative x 2 sets. Complicated due to the presence of osteomyelitis. No endocarditis stigmata noted on exam. The patient has two minor Modified [place]'s Criteria. TTE completed and negative for vegetation. SUDEEP negative for vegetations. Continue Ancef 1 gram IV Q12H, dose-adjusted for diminished CrCl. Duration of treatment depends on the clinical picture. Monitor renal function and dose-adjust antibiotics. (3) Gas gangrene Current Visit: Yes Status: Acute Location: Left foot. Etiology unclear: DFU vs. animal bite/scratch vs. other. Causative organism: Polymicrobial. Wound swab culture positive for MSSA. Intra- op cultures are positive for MSSA and P. mirabilis. CT of the left lower extremity showed extensive soft tissue gas throughout the forefoot extending up to the ankle. Podiatry consulted. 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 Previously-placed left foot hardware was removed. Operative note reviewed. Intra-op cultures as above. Pathology positive for OM with clear margins noted. Pre-op ESR >130 with CRP 232. CK level 25. Status post left choparts amputation 03/29/[address] Ayers. Navicular and cuboid bones removed. Pathology positive for osteomyelitis. Wound care and activity restrictions per the Podiatry team. Continue Ancef 1 gram IV Q12H, dose-adjusted for diminished CrCl. Duration of treatment depends on the clinical picture, but likely 6-8 weeks of IV antibiotics if the foot is deemed salvageable. Monitor renal function and dose-adjust antibiotics. Consult VAT for midline placement prior to discharge. Further OPAT recommendations to follow pending clinical and culture outcomes. We will continue to follow. (4) Ulcer of foot with necrosis of muscle Current Visit: Yes Status: Acute Location: Plantar aspect of the left foot. Etiology unclear. Podiatry consulted and following. Antibiotic recommendations as above. 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 Patient has had some weakness and confusion. Urinalysis positive for pyuria, but urine culture was negative. Qualifiers: Urinary tract infection type: acute cystitis Hematuria presence: without hematuria Qualified Code(s): N30.00 - Acute cystitis without hematuria (6) CKD (chronic kidney disease) stage 5, GFR less than 15 ml/min Current Visit: No Status: Chronic (7) Insulin dependent diabetes mellitus Current Visit: No Status: Chronic Recommend aggressive glucose monitoring and control to promote wound healing and prevent re-infection. Management per the primary team. (8) CAD (coronary artery disease) Current Visit: Yes Status: Chronic Qualifiers: Coronary Disease-Associated Artery/Lesion type: bypass graft [place] vs. transplanted heart: [place] heart Associated angina: without angina Qualified Code(s): I25.810 - Atherosclerosis of coronary artery bypass graft(s) without angina pectoris (9) A-fib Current Visit: Yes Status: Acute Cardiology consulted. Qualifiers: Atrial fibrillation type: persistent Qualified Code(s): I48.1 - Persistent atrial fibrillation (10) Rectal bleeding Current Visit: No Status: Acute FOBT +. Known history of hemorrhoids with last C-scope last year. EGD negative for bleeding. GI consulted and following. (11) Peripheral vascular disease Current Visit: Yes Status: Chronic ABIs abnormal. TCPO2 consistent with healing. Vascular consulted. (12) Oral thrush Current Visit: Yes Status: Acute Start Nystatin swish and spit. - Subjective Interval history: Patient seen and examined with family at the bedside. No acute events noted overnight. Status post SUDEEP Tuesday that was negative. Patient appears improved today. Denies fevers, chills, or rigors. Denies chest pain, shortness of breath, or cough. Denies vomiting or diarrhea, but reports multiple stools per day. Per nursing documentation, five stools yesterday, but none today. Denies abdominal pain or urinary complaints. Denies oral thrush or skin rashes. Denies pain in her left ankle/surgical site. Reports headache this morning that has resolved. Per family, patient's mental status is improved. Status post repeat washout 03/29/18. Infect Dis PN-Objective Data - Labs CBC & Chem 7: 04/03/18 02:10 03/31/18 05:04 Labs: Laboratory Results - last 24 hr 04/02/18 04/02/18 04/02/18 06:59 11:10 11:49 Hgb Hct Heparin Anti-Xa, Unfract 0.23 L POC Glucose 254 H 279 H Albumin Prealbumin 04/02/18 04/02/18 04/02/18 13:15 13:15 16:54 Hgb Hct Heparin Anti-Xa, Unfract POC Glucose 207 H Albumin 2.2 L Prealbumin 7.5 L 04/02/18 04/03/18 04/03/18 18:50 02:10 02:10 Hgb 8.3 L Hct 25.5 L Heparin Anti-Xa, Unfract 0.20 L 0.29 L POC Glucose Albumin Prealbumin Cultures: Cultures 03/25/18 18:56 Anaerobic Culture - Final Left Foot No anaerobes were recovered. 03/27/18 02:53 Blood Culture - Final Peripheral Venipuncture No growth. Final report. 03/27/18 02:53 Blood Culture - Final Peripheral Venipuncture No growth. Final report. 03/25/18 18:56 Wound Culture - Final Left Foot Proteus mirabilis Staphylococcus aureus 03/25/18 15:06 Blood Culture - Final Peripheral Venipuncture Staphylococcus aureus 03/25/18 14:58 Blood Culture - Final Peripheral Venipuncture Streptococcus anginosus 03/27/18 12:27 Urine Culture - Final Urine,Clean Catch No growth. 03/25/18 18:56 Gram Stain - Final Left Foot 03/25/18 15:45 Wound Culture - Final Right Foot Staphylococcus aureus Serology 03/28/18 03/27/18 03/25/18 Range/Units 12:05 12:27 15:06 Urine Color Dark Yellow (Yellow) Urine Clarity Turbid A (Clear) Urine pH 5.5 (5.0-8.0) pH Units Ur Specific [place] 1.020 (1.010-1.025) Urine Protein Trace (Neg-Trace) mg/dL Urine Glucose (UA) Normal (Normal) mg/dL Urine Ketones Negative (Negative) mg/dL Urine Blood Small H (Negative) Urine Nitrite Negative (Negative) Urine Bilirubin Negative (Negative) Urine Urobilinogen Normal (Normal) mg/dL Ur Leukocyte Esterase Large H (Negative) Urine Microscopic RBC 0-3 (0-3) per hpf Urine Microscopic WBC TNTC H (0-3) per hpf Ur Squamous Epith Cells Moderate H (None-Few) per lpf Urine Bacteria None Seen (None-Few) per hpf Hyaline Casts None Seen (None-Few) per lpf Urine Yeast Many H (None Seen) per hpf Ur Culture Indicated? YES A (NO) Stool Occult Blood Positive A (Negative) A. baumannii (PCR) Not Detected (Not Detect) Cris albicans (PCR) Not Detected (Not Detect) C. glabrata (PCR) Not Detected (Not Detect) C. krusei (PCR) Not Detected (Not Detect) C. parapsilosis (PCR) Not Detected (Not Detect) C. tropicalis (PCR) Not Detected (Not Detect) Enterobacteriac sp PCR Not Detected (Not Detect) E. cloacae complex PCR Not Detected (Not Detect) Enterococcus sp PCR Not Detected (Not Detect) E. coli (PCR) Not Detected (Not Detect) H. influenzae (PCR) Not Detected (Not Detect) Klebsiella oxytoca PCR Not Detected (Not Detect) Klebsiella pneumoniae Not Detected (Not Detect) List. monocytogenes PCR Not Detected (Not Detect) N. meningitidis (PCR) Not Detected (Not Detect) Proteus species (PCR) Not Detected (Not Detect) Serratia marcescens PCR Not Detected (Not Detect) Staphylococcus sp PCR DETECTED A (Not Detect) Staph aureus (PCR) DETECTED A (Not Detect) mecA-Methicil Res Gene Not Detected (Not Detect) Streptococcus sp PCR Not Detected (Not Detect) Group A Strep DNA Not Detected (Not Detect) Group B Strep (PCR) Not Detected (Not Detect) Strep pneumoniae (PCR) Not Detected (Not Detect) P. aeruginosa (PCR) Not Detected (Not Detect) Tammy/B-Vanco Res Genes N/A (Not Detect) KPC (blaKPC) Detect PCR N/A (Not Detect) 03/25/18 Range/Units 14:58 Urine Color (Yellow) Urine Clarity (Clear) Urine pH (5.0-8.0) pH Units Ur Specific [place] (1.010-1.025) Urine Protein (Neg-Trace) mg/dL Urine Glucose (UA) (Normal) mg/dL Urine Ketones (Negative) mg/dL Urine Blood (Negative) Urine Nitrite (Negative) Urine Bilirubin (Negative) Urine Urobilinogen (Normal) mg/dL Ur Leukocyte Esterase (Negative) Urine Microscopic RBC (0-3) per hpf Urine Microscopic WBC (0-3) per hpf Ur Squamous Epith Cells (None-Few) per lpf Urine Bacteria (None-Few) per hpf Hyaline Casts (None-Few) per lpf Urine Yeast (None Seen) per hpf Ur Culture Indicated? (NO) Stool Occult Blood (Negative) A. baumannii (PCR) Not Detected (Not Detect) Cris albicans (PCR) Not Detected (Not Detect) C. glabrata (PCR) Not Detected (Not Detect) C. krusei (PCR) Not Detected (Not Detect) C. parapsilosis (PCR) Not Detected (Not Detect) C. tropicalis (PCR) Not Detected (Not Detect) Enterobacteriac sp PCR Not Detected (Not Detect) E. cloacae complex PCR Not Detected (Not Detect) Enterococcus sp PCR Not Detected (Not Detect) E. coli (PCR) Not Detected (Not Detect) H. influenzae (PCR) Not Detected (Not Detect) Klebsiella oxytoca PCR Not Detected (Not Detect) Klebsiella pneumoniae Not Detected (Not Detect) List. monocytogenes PCR Not Detected (Not Detect) N. meningitidis (PCR) Not Detected (Not Detect) Proteus species (PCR) Not Detected (Not Detect) Serratia marcescens PCR Not Detected (Not Detect) Staphylococcus sp PCR Not Detected (Not Detect) Staph aureus (PCR) Not Detected (Not Detect) mecA-Methicil Res Gene N/A (Not Detect) Streptococcus sp PCR DETECTED A (Not Detect) Group A Strep DNA Not Detected (Not Detect) Group B Strep (PCR) Not Detected (Not Detect) Strep pneumoniae (PCR) Not Detected (Not Detect) P. aeruginosa (PCR) Not Detected (Not Detect) Tammy/B-Vanco Res Genes N/A (Not Detect) KPC (blaKPC) Detect PCR N/A (Not Detect) Exam - Constitutional Vitals: Temp Pulse Resp BP Pulse Ox 98.0 F 85 16 123/72 97 04/03/18 07:27 04/03/18 07:27 04/03/18 07:27 04/03/18 07:27 04/03/18 07:27 General appearance: cooperative, no acute distress, obese - Head Head exam: Present: atraumatic, normal inspection, normocephalic - Eye Eye exam: Absent: normal appearance (Left eye cloudy and globe atrophied.) - ENT ENT exam: Present: mucous membranes moist Additional comments: Oral thrush noted. - Neck Neck exam: Present: normal inspection - Respiratory Respiratory exam: Present: CTAB. Absent: rales, respiratory distress, rhonchi, wheezes - Cardiovascular Cardiovascular exam: Present: irregular rhythm. Absent: tachycardia - GI/Abdominal GI/Abdominal exam: Present: distended (obese), normal bowel sounds, soft. Absent: tenderness - Extremities Exam Extremities exam: Absent: joint swelling, normal inspection (LEft foot wound VAC dressing C/D/I with no dressing in the canister.), pedal edema, tenderness - Neurological Exam Neurological exam: Present: alert, oriented X3, no focal deficits - Psychiatric Psychiatric exam: Present: normal affect, normal mood - Skin Skin exam: Present: dry, intact, normal color, warm Consult Discharge Plan - Plan Referrals: Isabelle Joseph PHP SOFTWARE ENGINEER [Primary Care Provider] -
--- NOTE | 2018-04-03 11:34 | Podiatry Progress Note ---
Date of Encounter: 04/03/18 Time of Encounter: 09:35 - Assessment and Plan (1) Gas gangrene Current Visit: Yes Status: Acute Surgery 03/25/18 and 03/29/18 Wound VAC removed with serosanginous drainage noted to suture line. Left lateral malleolus with 1 x 1 cm pressure ulcer, Allevyn applied Adaptic applied to wound bed. Wound VAC changed with black sponge. Good seal noted. Increased VAC pressure to 150 mmHg. Continue non-weight bearing status to left foot. Can get up on right foot. Family at bedside and updated on plan. ID following for antibiotics. Can D/C to [facility] when cleared by ID and internal medicine. (2) Diabetes mellitus with foot ulcer Current Visit: Yes Status: Chronic Continue monitoring blood glucose levels in hospital and covering with sliding scale insulin. Currently 110-200 Primary to follow. Last hemoglobin A1c 9.2% on 08/21/14. 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 Confused at times more alert today than previously. Family at bedside. Denies pain. No new overnight events. Objective - Vital Signs Vital Signs: Vital Signs Temp Pulse Resp BP Pulse Ox 04/03/18 07:27 98.0 F 85 16 123/72 97 04/03/18 03:46 98.5 F 96 18 120/66 98 04/03/18 00:41 98.4 F 90 18 123/67 96 04/02/18 20:42 99.0 F 92 18 127/68 97 04/02/18 16:52 97.7 F 96 18 124/63 95 Intake and Output 04/02/18 04/03/18 04/03/18 23:59 07:59 15:59 Intake Total 600.0 / 600.0 311 / 311 240 / 240 Output Total 27 / 27 25 / 25 Balance 573.0 / 573.0 311 / 311 215 / 215 Intake: IV Fluids 360.0 / 360.0 311 / 311 0.9 % Sodium Chloride 250 ML @ 250 / 250 250 / 250 25 mls/hr IVC .Q10H [facility] Rx#: [id number] Heparin 25,000 UNIT/500 ML D5W 100.0 / 100.0 25,000 unit In 500 ml @ 14 UNIT /KG/HR 24.258 mls/hr IVC . [id number] [facility] Rx#:[id number] Ancef 1,000 MG In Water for inj . (sterile) 10 ML @ 200 mls/hr IVP Q12H [facility] Rx#:[id number] Oral 240 / 240 0 / 0 240 / 240 Output: Wound Drainage Left Foot Other: Meal Dinner Breakfast Percent of Meal Consumed 70% 0% Stool Size Large Stool Consistency loose Stool Color Brown # Urine Diapers 3 1 # Bowel Movement Diapers 1 Weight 90.88 kg Blood Glucose* 178 117 Patient Weight 04/03/18 23:59 Weight 90.88 kg - Exam Exam: Constitutional: Alert to person and place, confused to time. Vascular: 2/4 DP PT right foot, 2/4 popliteal left, CFT less than 3 seconds right foot, trace edema noted bilaterally Neurologic: Diminished light touch bilaterally, absent pin prick test left and diminished right Dermatologic: Dressing to LLE clean dry and intact, wound VAC to LLE draining serosanguineous drainage at 125 mmHg with good seal Musculoskeletal: s/p Left Chopart's amputation, patient able to move LLE active ly with minimal strength - Lab Result Diagrams: 04/03/18 08:40 04/03/18 08:40 Labs: Abnormal lab results WBC 13.4 K/mcL (4.3-11.1) H 04/02/18 04:25 RBC 2.90 M/mcL (3.82-4.97) L 04/02/18 04:25 Hgb 8.3 g/dL (11.5-15.4) L 04/03/18 02:10 Hct 25.5 % (35.3-44.9) L 04/03/18 02:10 MCHC 31.5 g/dL (31.6-35.5) L 04/02/18 04:25 RDW 15.9 % (11.5-14.5) H 04/02/18 04:25 Neutrophils # 9.1 K/mcL (1.6-8.9) H 04/02/18 04:25 Nucleated RBCs/100 WBC 0.1 /100 WBC (0) H 04/02/18 04:25 Platelet Estimate Increased (Normal) H 03/25/18 14:58 Immature Plt Fraction 6.4 % (1.1-6.1) H 03/30/18 08:52 ESR >= 130 mm/hr (0-15) H 03/25/18 14:58 PT 16.0 Seconds (9.4-12.1) H 03/31/18 11:40 Heparin Anti-Xa, Unfract 0.29 IU/mL (0.30-0.70) L 04/03/18 02:10 Chloride 115 mEq/L (98-107) H 03/31/18 05:04 Carbon Dioxide 18 mEq/L (23-29) L 03/31/18 05:04 BUN 50 mg/dL (8-23) H 03/31/18 05:04 Creatinine 1.39 mg/dL (0.60-1.20) H 03/31/18 05:04 Est GFR ( Amer) 44 (> 60) L 03/31/18 05:04 Est GFR (Non-Af Amer) 36 (> 60) L 03/31/18 05:04 BUN/Creatinine Ratio 36 (6-26) H 03/31/18 05:04 Glucose 270 mg/dL (70-105) H 03/31/18 05:04 POC Glucose 117 mg/dL (70-99) H 04/03/18 07:27 Calculated Osmolality 311 (280-300) H 03/31/18 05:04 Iron 31 mcg/dL (50-170) L 03/28/18 03:23 Transferrin 105 mg/dL (203-362) L 03/28/18 03:23 Ferritin 293 ng/mL (10-120) H 03/29/18 12:12 Creatine Kinase 25 Units/L (30-223) L 03/25/18 14:58 C-Reactive Protein 232 mg/L (Less than 10) H 03/25/18 14:58 Albumin 2.2 g/dL (3.5-5.7) L 04/02/18 13:15 Prealbumin 7.5 mg/dL (17.0-34.0) L 04/02/18 13:15 Urine Clarity Turbid (Clear) A 03/27/18 12:27 Urine Blood Small (Negative) H 03/27/18 12:27 Ur Leukocyte Esterase Large (Negative) H 03/27/18 12:27 Urine Microscopic WBC TNTC per hpf (0-3) H 03/27/18 12:27 Ur Squamous Epith Cells Moderate per lpf (None-Few) H 03/27/18 12:27 Urine Yeast Many per hpf (None Seen) H 03/27/18 12:27 Ur Culture Indicated? YES (NO) A 03/27/18 12:27 Stool Occult Blood Positive (Negative) A 03/28/18 12:05 Vancomycin Trough 17 mcg/mL (5-10) H 03/28/18 03:23 Staphylococcus sp PCR DETECTED (Not Detect) A 03/25/18 15:06 Staph aureus (PCR) DETECTED (Not Detect) A 03/25/18 15:06 Microbiology, Last 48 Hours 03/25/18 18:56 Anaerobic Culture - Final Left Foot No anaerobes were recovered. Consult Discharge Plan - Plan Additional Instructions: Change wound vac MWF. Follow up in wound clinic with Dr. Ayers. Please make appointment prior to D/C. Referrals: Isabelle Joseph CNP [Primary Care Provider] - Agus Ayers DPM [Partnered Physician] -
[2018-04-03 11:45] LABS: Basophils % 0.2 %; Eosinophils # 0.3 K/mcL (0.0-0.6); Eosinophils % 2.3 %; Hematocrit 25.9 % (35.3-44.9); Hemoglobin 8.3 g/dL (11.5-15.4); Immature Granulocytes % 0.6 % (0-4); Lymphocytes # 2.3 K/mcL (0.6-4.6); Mean Corpuscular Hemoglobin 28.8 pg (28.0-33.3); Mean Corpuscular Volume 89.9 fL (83.0-100.0); Mean Platelet Volume 11.7 fL (9.4-12.4); Monocytes # 1.1 K/mcL (0.0-1.3); Monocytes % 8.3 %; Neutrophils # 9.2 K/mcL (1.6-8.9); Platelet Count 411 K/mcL (140-400); Red Blood Count 2.88 M/mcL (3.82-4.97); Red Cell Distribution Width 16.4 % (11.5-14.5); Segmented Neutrophils % 70.6 %
--- NOTE | 2018-04-03 12:14 | Internal Med Progress Note ---
Hospitalist Progress Note - Encounter Date of Encounter: 04/03/18 Time of Encounter: 12:11 - Subjective Interval History: Patient seen and examined this morning. Denies foot pain. Awake and alert. No reported sob, cp, abdominal pain, N/V/D. Had non bloody, Non-tarry BM. Mild fever noted overnight. - Exam Vitals: Temp Pulse Resp BP Pulse Ox 98.0 F 85 16 123/72 97 04/03/18 07:27 04/03/18 07:27 04/03/18 07:27 04/03/18 07:27 04/03/18 07:27 Exam: Gen: AO x 2, in NAD HEENT: NC/AT, left eye blind Neck: Supple, no JVD Lungs: CTA b/l, No adventitious lung sounds Heart: Irregularly irregular rhythm, S1,S2, no MRG Abd: Soft, Non tenderness, non distended. Obese Ext: Left foot s/p surgery, dressed. Neuro: decreased sensation both legs. - Assessment and Plan (1) CKD (chronic kidney disease) stage 5, GFR less than 15 ml/min Current Visit: No Status: Chronic (2) DVT prophylaxis Current Visit: No Status: Acute (3) Diabetes Current Visit: No Status: Acute (4) Leukocytosis Current Visit: Yes Status: Acute (5) Gas gangrene Current Visit: Yes Status: Acute (6) Diabetes mellitus with foot ulcer Current Visit: Yes Status: Chronic (7) CAD (coronary artery disease) Current Visit: Yes Status: Chronic (8) A-fib Current Visit: Yes Status: Acute (9) Bacteremia Current Visit: Yes Status: Acute (10) UTI (urinary tract infection) Current Visit: Yes Status: Ruled-out - Summary of Assessment and Plan Summary of Assessment and Plan: Diabetes mellitus with Lt foot ulcer and gas gangrene - Severe gas gangrene. - S/P partial lt foot amputation, I/D by podiatry 03/25. 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 - Was started Vanco, zosyn, and Clindamycin. Vanc and clindamycin stopped. Now switched to cefazolin 1g q12 per ID. May need 6-8 weeks if foot is salvagable. - vascular following. May consider angiography if not improving and if needs BKA. - Podiatry following. wound vac change today. Recommendations appreciated. - ID following. Recommended abx as above. - PT/OT following. Recommended SNF. Family agrees and working with social human services assistants for placement. - Started on diet and per family eating well. Protein supplementation started. - Sugar now well controlled with NPH at 20. New A-fib - Incidentally found in ER. Pt denies hx of A Fib. - HR is well controlled without BB or cardizem held initially due to low BP. Fermin loyd star low dose lopressor today. - Echo shows LVEF 45%. intermediate DD. SUDEEP with EF of 25-30%. Severe global RV hypokinesis. Mod PulHTN. No vegetations. - cardio following. Recommended AC. Restarted on Heparin per discussion with GI. Hb stable around previous baseline. Anemia - Baseline of 9-10. Possible component of concentration with bacteremia, anemia of chronic dz and CKD or GI bleed - Started on Heparin for afib. stool occult positive. no h/o Gi bleed. Colonoscopy last year with hemorrhoids. - s/p 1 PRBC. GI following. Colonoscopy not needed per GI. Had EGD 03/30 - EGD showed gastritis, esophagitis and non bleeding duodenal ulcer. Started on PPI and carafate. Path pending. - H&H stable at baseline on heparin drip for past few days. Will start coumadin with bridging. VALERIY on CKD - Now resolved - Cr is about at her baseline. CAD - No chest pain. Cont home meds. Bacteremia - 1/2 Blood culture on 03/25 for MSSA and 1/2 for S.Anginosus(possible contaminant). - Now switched to cefazolin - TTE with EF of 45, intermediate DD, borderline PHTN. No signs of endocarditis on exam and SUDEEP - repeat blood culture 03/27/18 NGTD. - SUDEEP without vegetations. - ID following UTI - C/O RLQ pain, CT abd/pelvis shows ? cystitis, UA shows ? UTI. - urine culture NGTD. DVT prophylaxis - Heparin Plan for DC to rehab tomorrow once cleared by podiatry. Will need cardiology follow up given her EF on SUDEEP.. - Time Spent with Patient Total time spent is greater than 50% in coordination of care (as documented) at patient's floor/unit and/or counseling patient: Internal Medicine: Result - Labs CBC & Chem 7: 04/03/18 08:40 03/31/18 05:04 Labs: Short CBC 04/03/18 04/03/18 Range/Units 02:10 08:40 WBC 13.0 H (4.3-11.1) K/mcL Hgb 8.3 L 8.3 L (11.5-15.4) g/dL Hct 25.5 L 25.9 L (35.3-44.9) % Plt Count 411 H (140-400) K/mcL Neutrophils # 9.2 H (1.6-8.9) K/mcL Liver Function 04/02/18 Range/Units 13:15 Albumin 2.2 L (3.5-5.7) g/dL - ABG Interpretation ABG results: PT/INR, D-dimer PT 16.0 Seconds (9.4-12.1) H 03/31/18 11:40 Consult Discharge Plan - Plan Referrals: Isabelle Joseph, DAIRY HUSBANDRY WORKER [Primary Care Provider] - (3) Diabetes Qualifiers: Diabetes mellitus type: type 2 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 equipment operator intermodal yard use Diabetes mellitus complication status: with kidney complications Diabetes mellitus complication detail: with chronic kidney disease Chronic kidney disease stage: stage 5, not on chronic dialysis Qualified Code(s): E11.22 - Type 2 diabetes mellitus with diabetic chronic kidney disease; N18.5 - Chronic kidney disease, stage 5; Z79.4 - long term care phlebotomist (current) use of insulin (4) Leukocytosis Qualifiers: Leukocytosis type: other Qualified Code(s): D72.828 - Other elevated white blood cell count (6) Diabetes mellitus with foot ulcer Qualifiers: Diabetes mellitus type: type 2 Diabetes mellitus fpc insulin use: with fpc use Qualified Code(s): E11.621 - Type 2 diabetes mellitus with foot ulcer; L97.509 - Non-pressure chronic ulcer of other part of unspecified foot with unspecified severity; Z79.4 - [facility] (current) use of insulin (7) CAD (coronary artery disease) Qualifiers: Coronary Disease-Associated Artery/Lesion type: bypass graft [place] vs. transplanted heart: [place] heart Associated angina: without angina Qualified Code(s): I25.810 - Atherosclerosis of coronary artery bypass graft(s) without angina pectoris (8) A-fib Qualifiers: Atrial fibrillation type: persistent Qualified Code(s): I48.1 - Persistent atrial fibrillation (10) UTI (urinary tract infection) Qualifiers: Urinary tract infection type: acute cystitis Hematuria presence: without hematuria Qualified Code(s): N30.00 - Acute cystitis without hematuria
[2018-04-03] MEDS: Nystatin SUSP 5 ML UD.LIQ PO SCH ×3 (12:44→19:34)
[2018-04-03 12:51] LABS: BUN/Creatinine Ratio 44 (6-26); Blood Urea Nitrogen 45 mg/dL (8-23); Calcium 8.5 mg/dL (8.6-10.3); Carbon Dioxide 20 mEq/L (23-29); Chloride 113 mEq/L (98-107); Glucose 148 mg/dL (70-105); Osmolality,Calculated 302 (280-300); Potassium 4.2 mEq/L (3.5-5.1); Sodium 139 mEq/L (136-145); eGFR For Non-African Americans 52 (> 60)
--- NOTE | 2018-04-03 17:18 | Discharge Summary ---
- NOTES TO OUTPATIENT PROVIDER Notes to Outpatient Provider: Patient to complete 6-8 weeks of cefazolin and follow up with ID with weekly blood work. Patient at risk of BKA amputation. To follow up with podiatry. Newly diagnosed AFib started on coumadin with INR target of 2-3. To get daily INR check till therapeutic. Has esophagitis and started on PPI and carafate. Monitor Hb while on anticoagulation. Home lisinopril-hctz on hold given resolving VALERIY. Home amlodipine held given started on Metoprolol for Afib. Insulin NPH increased to 20 BIDAC. Orders not resulted at time of discharge: Pending orders 03/25/18 XR foot 3V LT [XR] Routine 04/01/18 15:30 Heparin anti-factor XA UFH [COAG] Timed 04/01/18 21:45 Heparin anti-factor XA UFH [COAG] Timed 04/02/18 13:15 25-oh vitamin D [Vitamin D 25 Hydroxy] Routine 04/02/18 18:50 Heparin anti-factor XA UFH [COAG] Timed 04/03/18 13:18 PT/INR [Prothrombin Time INR] [COAG] Stat 04/03/18 18:15 Heparin anti-factor XA UFH [COAG] Timed 04/04/18 04:00 PT/INR [Prothrombin Time INR] [COAG] AM 0400 04/05/18 04:00 PT/INR [Prothrombin Time INR] [COAG] AM 0400 04/06/18 04:00 PT/INR [Prothrombin Time INR] [COAG] AM 0400 Date of Encounter: 04/03/18 Time of Encounter: 04:56 - Discharge Diagnosis (1) CKD (chronic kidney disease) stage 5, GFR less than 15 ml/min Priority: Secondary Status: Chronic (2) DVT prophylaxis Priority: Secondary Status: Acute (3) Diabetes Priority: Secondary Status: Acute Qualifiers: Diabetes mellitus type: type 2 Diabetes mellitus retirement insulin use: with ferry terminal agent use Diabetes mellitus complication status: with kidney complications Diabetes mellitus complication detail: with chronic kidney disease Chronic kidney disease stage: stage 5, not on chronic dialysis Qualified Code(s): E11.22 - Type 2 diabetes mellitus with diabetic chronic kidney disease; N18.5 - Chronic kidney disease, stage 5; 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 (4) Leukocytosis Priority: Primary Status: Acute Qualifiers: Leukocytosis type: other Qualified Code(s): D72.828 - Other elevated white blood cell count (5) Gas gangrene Priority: Primary Status: Acute (6) Diabetes mellitus with foot ulcer Priority: Primary Status: Chronic Qualifiers: Diabetes mellitus type: type 2 Diabetes mellitus retirement insulin use: with ferry terminal agent use Qualified Code(s): E11.621 - Type 2 diabetes mellitus with foot ulcer; L97.509 - Non-pressure chronic ulcer of other part of unspecified foot with unspecified severity; 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 transplanted heart: [place] heart Associated angina: without angina Qualified Code(s): I25.810 - Atherosclerosis of coronary artery bypass graft(s) without angina pectoris (8) A-fib Priority: Primary Status: Acute Qualifiers: Atrial fibrillation type: persistent Qualified Code(s): I48.1 - Persistent atrial fibrillation (9) Bacteremia Priority: Primary Status: Acute (10) UTI (urinary tract infection) Priority: Primary Status: Ruled-out Qualifiers: Urinary tract infection type: acute cystitis Hematuria presence: without hematuria Qualified Code(s): N30.00 - Acute cystitis without hematuria Hospital course: Ms. Kaplan is a 78 year old female with PMHx of DM DM, CKD, CAD s/p CABG, s/p splenectomy since childhood came to ER with foot infection. CT in ER showed Gas gangrene. Patient was started on Vancomycin, zosyn and Clindamycin and under went partial foot amputation on 03/25/18 by podiatry. ID was consulted. Blood culture grew MSSA. Based on culture antibiotics were changed to Zosyn. Patient also found to have new Afib with [id number] of 6 and cardiology was consulted. HR was controlled without AV blockage and was started on heparin drip. TTE did not show any atrial thrombus. Vascular also consulted who differed angiogram given CKD until need for BKA. Had RLQ pain and had CT done which showed UTI . Patient had drop in Hb with stool occult being positive while on heparin. GI consulted and she had EGD which showed esophagitis. She was started on PPI and carafate. She was taken back to OR for Washout and debriment on 03/29/18 and had left choparts amputation and had wound vac placed. She also had SUDEEP given bacteremia which was negative for vegetation. She was restarted on Heparin after discussion with GI. Hb remain stable on heparin for 4 days. She was cleared by Podiatry to discharge ECF. She will be started on coumadin with INR target of 2- 3 starting today pharmacy to dose. She will need daily INR check until therapeutic and also monitor Hb in 3-4 days at ECF. She will continue cefazolin for 6-8 weeks per ID. Discharge discussed with: patient, nurse, social work, case management, process improvement consultant - Time Spent with Patient Total time spent providing and/or coordinating discharge services: Greater than 30 minutes (40) - Discharge Medications Prescriptions: Cefazolin Sodium/D5w [Cefazolin 2 G/50 ml-D5w Bag] 2 gm IV Q8HR 49 Days #147 piggyback Metoprolol [Lopressor] 12.5 mg PO BID 30 Days #60 tablet Pantoprazole Sodium [Protonix] 40 mg PO DAILY 30 Days #30 tab Sucralfate [Carafate] 1 gm PO 0730,1630 30 Days #60 tablet Warfarin perPT [Coumadin perPT] 2 mg PO DAILY@1800 PRN 7 Days #7 each PRN Reason: See Comments Home Medications: Dorzolamide/Timolol [Cosopt] 1 drop OP BID 02/23/17 [History] Simvastatin [Zocor] 40 mg PO HS 02/23/17 [History] Ergocalciferol (VITAMIN D2) [Vitamin D2] 50,000 unit PO QWEEK 03/25/18 [History] Cefazolin Sodium/D5w [Cefazolin 2 G/50 ml-D5w Bag] 2 gm IV Q8HR 49 Days #147 piggyback 04/03/18 [Rx] Insulin LISPRO [HumaLOG] 0 units SQ HS vial 04/03/18 [Rx] Insulin LISPRO [HumaLOG] 0 units SQ TIDAC vial 04/03/18 [Rx] Insulin NPH/REG 70/30 (HUMAN) [Humulin 70/30 Vial] 20 unit SQ BIDAC [id number] 04/03/18 [Rx] Metoprolol [Lopressor] 12.5 mg PO BID 30 Days #60 tablet 04/03/18 [Rx] Pantoprazole Sodium [Protonix] 40 mg PO DAILY 30 Days #30 tab 04/03/18 [Rx] Sucralfate [Carafate] 1 gm PO 0730,1630 30 Days #60 tablet 04/03/18 [Rx] Warfarin perPT [Coumadin perPT] 2 mg PO DAILY@1800 PRN 7 Days #7 each 04/03/18 [Rx] Allergies/Adverse Reactions: Allergy/AdvReac Type Severity Reaction Status Date / Time lidocaine Allergy See Verified 02/23/17 16:30 Comments Date of admission: 03/25/18 18:03 Primary care physician: Isabelle Joseph CNP Consults: 03/25/18 16:50 Consult to Podiatry [CONS] Stat Consulting Provider: [facility] Reason for Consult: necrotic foot Time Notified: 16:50 Call Completed: Yes 03/25/18 18:19 Consult to Cardiology [CONS] Routine Comment: Consulting Provider: Cardiology [facility] Reason for Consult: A Fib incidently found, no Hx Call Completed: No Consult to Infectious Diseases [CONS] Routine Consulting Provider: Infectious Disease [facility] Reason for Consult: DM foot gas gangrene, Hx of slenectomy and suspect dog licked wound. Call Completed: No 03/27/18 13:01 Consult to [facility] (W&C) [CONS] Routine Reason For Exam: Reason for SW Consult: d/c planning 03/27/18 15:24 Consult to Vascular Surgery [CONS] Routine Consulting Provider: Vascular Surgery [facility] Reason for Consult: venous insufficency Call Completed: No 03/29/18 08:25 Consult to Gastroenterology [CONS] Routine Consulting Provider: Gastroenterology [place] Reason for Consult: Possible LGIB Call Completed: Yes 03/31/18 07:47 Consult to Physical Therapy [CONS] Routine Comment: Evaluate, develop and implement POC Reason for Consult: Improve mobility. Assess needs for discharge planning. Does patient have active BEDREST order?: No Is patient medically & hemodynamically stable?: Yes 03/31/18 08:00 Consult to Nutrition [CONS] Routine Comment: Consulting Provider: NUTRITION Reason for Dietary Consult: Other Other:: decreased appetite 03/31/18 08:19 Consult to Invasive Line Access Team [CONS] Routine Reason for Consult: home atb Line Type: Midline 03/31/18 10:49 Consult to Occupational Therapy [CONS] Routine Comment: Evaluate, develop and implement POC Reason for Consult: Need for therapy Does patient have active BEDREST order?: No Is patient medically & hemodynamically stable?: Yes Discharging clinician: Nestor Cordoba - Constitutional Vitals: Temp Pulse Resp BP Pulse Ox 98.7 F 88 16 135/75 99 04/03/18 16:19 04/03/18 16:19 04/03/18 16:19 04/03/18 16:19 04/03/18 16:19 General appearance: Present: A&O X 3, no acute distress, answers questions appropriately Exam: Gen: AO x 2, in NAD HEENT: NC/AT, left eye blind Neck: Supple, no JVD Lungs: CTA b/l, No adventitious lung sounds Heart: Irregularly irregular rhythm, S1,S2, no MRG Abd: Soft, Non tenderness, non distended. Obese Ext: Left foot s/p surgery, dressed. Neuro: decreased sensation both legs. - Patient Status Disposition: Transfer SNF Condition: Serious - Discharge Instructions Follow Up With: Agus Ayers DPM [Partnered Physician] - Isabelle Joseph CNP [Primary Care Provider] - Additional Instructions: Change wound vac MWF. Follow up in wound clinic with Dr. Ayers. Please make appointment prior to D/C. - Diet and Activity Activity: as per physical therapy
[2018-04-03] MEDS ORDERED: Warfarin perPT PO PRN (18:00)
[2018-04-03 18:21] LABS: INR 1.4; Prothrombin Time 15.5 Seconds (9.4-12.1)
[2018-04-03] MEDS ORDERED: *HR* Warfarin 5 MG TABLET PO ONE (18:45)
[2018-04-04 04:24] LABS: INR 1.3
[2018-04-04] MEDS: Insulin LISPRO 300 UNITS/3 ML VIAL SQ SCH ×2 (07:33→12:26)
[2018-04-04] MEDS: Insulin NPH/REG 70/30 100 UNIT/ML (x5UNIT) SQ SCH (07:35)
[2018-04-04] MEDS: Sucralfate 1 GM TABLET PO SCH (08:23)
[2018-04-04] MEDS: Pantoprazole 40 MG VIAL IVP SCH (08:24)
[2018-04-04] MEDS: Nystatin SUSP 5 ML UD.LIQ PO SCH (08:24)
[2018-04-04] MEDS: Lactobacillus 1 EACH CAP.SPRINK PO SCH (08:30)
[2018-04-04] MEDS: Dorzolamide/Timolol OPTH 10 ML BOTTLE BOTH EYES SCH (08:30)
[2018-04-04] MEDS: Nystatin POWDER 30 GM BOTTLE TP SCH (08:31)
[2018-04-04 09:49] LABS: Basophils % 0.3 %; Eosinophils # 0.2 K/mcL (0.0-0.6); Eosinophils % 1.9 %; Hematocrit 27.5 % (35.3-44.9); Hemoglobin 8.6 g/dL (11.5-15.4); Immature Granulocytes % 0.5 % (0-4); Lymphocytes # 2.1 K/mcL (0.6-4.6); Mean Corpuscular HGB Conc 31.3 g/dL (31.6-35.5); Mean Corpuscular Hemoglobin 28.2 pg (28.0-33.3); Mean Corpuscular Volume 90.2 fL (83.0-100.0); Mean Platelet Volume 11.3 fL (9.4-12.4); Monocytes # 1.2 K/mcL (0.0-1.3); Monocytes % 9.3 %; Neutrophils # 9.3 K/mcL (1.6-8.9); Platelet Count 376 K/mcL (140-400); Red Blood Count 3.05 M/mcL (3.82-4.97); Red Cell Distribution Width 16.3 % (11.5-14.5)
[2018-04-04 10:07] LABS: BUN/Creatinine Ratio 39 (6-26); Blood Urea Nitrogen 39 mg/dL (8-23); Calcium 8.6 mg/dL (8.6-10.3); Carbon Dioxide 22 mEq/L (23-29); Chloride 113 mEq/L (98-107); Glucose 117 mg/dL (70-105); Osmolality,Calculated 298 (280-300); Potassium 4.1 mEq/L (3.5-5.1); Sodium 139 mEq/L (136-145); eGFR For Non-African Americans 53 (> 60)
--- NOTE | 2018-04-04 11:24 | Infectious Disease Progress No ---
Date of Encounter: 04/04/18 Time of Encounter: 10:23 - Assessment and Plan (1) Leukocytosis Status: Acute WBC elevated at 26 on admission. Likely secondary to left foot infection and possible UTI. Improved. Blood cultures drawn 03/25/18 are positive 1/2 sets for MSSA and 1/2 sets for S. anginosus. Repeat blood cultures drawn 03/27/18 are negative x 2 sets. Qualifiers: Leukocytosis type: other Qualified Code(s): D72.828 - Other elevated white blood cell count (2) Bacteremia Status: Acute Causative organism: MSSA and S. anginosus. Not sure if the S. anginosus is a true infection vs. contaminant since no other cultures are positive for this. Source: likely the left foot ulcer. Blood cultures drawn 03/25/18 are positive 1/2 sets for MSSA and 1/2 sets for S. anginosus. Repeat blood cultures drawn 03/27/18 are negative x 2 sets. Complicated due to the presence of osteomyelitis. No endocarditis stigmata noted on exam. The patient has two minor Modified [place]'s Criteria. TTE completed and negative for vegetation. SUDEEP negative for vegetations. Continue Ancef 1 gram IV Q8H, dose-adjusted for improved CrCl. Duration of treatment depends on the clinical picture. The patient will require at least 6 weeks of IV antibiotics for her foot infection. Monitor renal function and dose-adjust antibiotics. (3) Gas gangrene Status: Acute Location: Left foot. Etiology unclear: DFU vs. animal bite/scratch vs. other. Causative organism: Polymicrobial. Wound swab culture positive for MSSA. Intra- op cultures are positive for MSSA and P. mirabilis. CT of the left lower extremity showed extensive soft tissue gas throughout the forefoot extending up to the ankle. Podiatry consulted. 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 Previously-placed left foot hardware was removed. Operative note reviewed. Intra-op cultures as above. Pathology positive for OM with clear margins noted. Pre-op ESR >130 with CRP 232. CK level 25. Status post left choparts amputation 03/29/[address] Ayers. Navicular and cuboid bones removed. Pathology positive for osteomyelitis. Wound care and activity restrictions per the Podiatry team. Continue Ancef 1 gram IV Q8H. Duration of treatment depends on the clinical picture, but likely 6-8 weeks of IV antibiotics if the foot is deemed salvageable. Monitor renal function and dose-adjust antibiotics. Will need weekly CBC, BUN/Cr, ESR, CRP. Will need weekly midline care per protocol. Follow up with ID 04/20/18 at 1405. (4) Ulcer of foot with necrosis of muscle Status: Acute Location: Plantar aspect of the left foot. Etiology unclear. Podiatry consulted and following. Antibiotic recommendations as above. 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 Management per the primary team. (7) CAD (coronary artery disease) Status: Chronic Qualifiers: Coronary Disease-Associated Artery/Lesion type: bypass graft [place] vs. transplanted heart: [place] heart Associated angina: without angina Qualified Code(s): I25.810 - Atherosclerosis of coronary artery bypass graft(s) without angina pectoris (8) A-fib Status: Acute Cardiology consulted. Qualifiers: Atrial fibrillation type: persistent Qualified Code(s): I48.1 - Persistent atrial fibrillation (9) Rectal bleeding Status: Acute FOBT +. Known history of hemorrhoids with last C-scope last year. EGD negative for bleeding. GI consulted and following. (10) Peripheral vascular disease Status: Chronic ABIs abnormal. TCPO2 consistent with healing. Vascular consulted. (11) Oral thrush Status: Acute Continue Nystatin swish and spit. - Subjective Interval history: Patient seen and examined with family at the bedside. No acute events noted overnight. Status post SUDEEP Tuesday that was negative. Patient appears improved today, sitting up in bed using tablet. Denies fevers, chills, or rigors. Denies chest pain, shortness of breath, or cough. Denies vomiting or diarrhea, but does report some nausea after she drinks her Ensure or the protein drink that her family provides to her. Per nursing documentation, five stools yesterday, but none today. Denies abdominal pain or urinary complaints. Denies oral thrush or skin rashes. Denies pain in her left ankle/surgical site. Per family, patient's mental status is improved. Status post repeat washout 03/29/18. Infect Dis PN-Objective Data - Labs CBC & Chem 7: 04/04/18 09:33 04/04/18 09:33 Labs: Laboratory Results - last 24 hr 03/30/18 03/30/18 04/02/18 07:05 11:29 20:20 WBC RBC Hgb Hct MCV MCH MCHC RDW Plt Count MPV Immature Gran % Seg Neutrophils % Lymphocytes % Monocytes % Eosinophils % Basophils % Neutrophils # Lymphocytes # Monocytes # Eosinophils # Basophils # PT INR Heparin Anti-Xa, Unfract Sodium Potassium Chloride Carbon Dioxide BUN Creatinine Est GFR ( Amer) Est GFR (Non-Af Amer) BUN/Creatinine Ratio Glucose POC Glucose 136 H 136 H 178 H Calculated Osmolality Calcium 04/03/18 04/03/18 04/03/18 07:27 08:40 08:40 WBC 13.0 H RBC 2.88 L Hgb 8.3 L Hct 25.9 L MCV 89.9 MCH 28.8 MCHC 32.0 RDW 16.4 H Plt Count 411 H MPV 11.7 Immature Gran % 0.6 Seg Neutrophils % 70.6 Lymphocytes % 18.0 Monocytes % 8.3 Eosinophils % 2.3 Basophils % 0.2 Neutrophils # 9.2 H Lymphocytes # 2.3 Monocytes # 1.1 Eosinophils # 0.3 Basophils # 0.0 PT INR Heparin Anti-Xa, Unfract 0.47 Sodium Potassium Chloride Carbon Dioxide BUN Creatinine Est GFR ( Amer) Est GFR (Non-Af Amer) BUN/Creatinine Ratio Glucose POC Glucose 117 H Calculated Osmolality Calcium 04/03/18 04/03/18 04/04/18 08:40 17:55 03:45 WBC RBC Hgb Hct MCV MCH MCHC RDW Plt Count MPV Immature Gran % Seg Neutrophils % Lymphocytes % Monocytes % Eosinophils % Basophils % Neutrophils # Lymphocytes # Monocytes # Eosinophils # Basophils # PT 15.5 H 15.0 H INR 1.4 1.3 Heparin Anti-Xa, Unfract Sodium 139 Potassium 4.2 Chloride 113 H Carbon Dioxide 20 L BUN 45 H Creatinine 1.03 Est GFR ( Amer) > 60 Est GFR (Non-Af Amer) 52 L BUN/Creatinine Ratio 44 H Glucose 148 H POC Glucose Calculated Osmolality 302 H Calcium 8.5 L 04/04/18 04/04/18 09:33 09:33 WBC 12.9 H RBC 3.05 L Hgb 8.6 L Hct 27.5 L MCV 90.2 MCH 28.2 MCHC 31.3 L RDW 16.3 H Plt Count 376 MPV 11.3 Immature Gran % 0.5 Seg Neutrophils % 72.0 Lymphocytes % 16.0 Monocytes % 9.3 Eosinophils % 1.9 Basophils % 0.3 Neutrophils # 9.3 H Lymphocytes # 2.1 Monocytes # 1.2 Eosinophils # 0.2 Basophils # 0.0 PT INR Heparin Anti-Xa, Unfract Sodium 139 Potassium 4.1 Chloride 113 H Carbon Dioxide 22 L BUN 39 H Creatinine 1.00 Est GFR ( Amer) > 60 Est GFR (Non-Af Amer) 53 L BUN/Creatinine Ratio 39 H Glucose 117 H POC Glucose Calculated Osmolality 298 Calcium 8.6 Cultures: Cultures 03/25/18 18:56 Anaerobic Culture - Final Left Foot No anaerobes were recovered. 03/27/18 02:53 Blood Culture - Final Peripheral Venipuncture No growth. Final report. 03/27/18 02:53 Blood Culture - Final Peripheral Venipuncture No growth. Final report. 03/25/18 18:56 Wound Culture - Final Left Foot Proteus mirabilis Staphylococcus aureus 03/25/18 15:06 Blood Culture - Final Peripheral Venipuncture Staphylococcus aureus 03/25/18 14:58 Blood Culture - Final Peripheral Venipuncture Streptococcus anginosus 03/27/18 12:27 Urine Culture - Final Urine,Clean Catch No growth. 03/25/18 18:56 Gram Stain - Final Left Foot 03/25/18 15:45 Wound Culture - Final Right Foot Staphylococcus aureus Serology 03/28/18 03/27/18 03/25/18 Range/Units 12:05 12:27 15:06 Urine Color Dark Yellow (Yellow) Urine Clarity Turbid A (Clear) Urine pH 5.5 (5.0-8.0) pH Units Ur Specific [place] 1.020 (1.010-1.025) Urine Protein Trace (Neg-Trace) mg/dL Urine Glucose (UA) Normal (Normal) mg/dL Urine Ketones Negative (Negative) mg/dL Urine Blood Small H (Negative) Urine Nitrite Negative (Negative) Urine Bilirubin Negative (Negative) Urine Urobilinogen Normal (Normal) mg/dL Ur Leukocyte Esterase Large H (Negative) Urine Microscopic RBC 0-3 (0-3) per hpf Urine Microscopic WBC TNTC H (0-3) per hpf Ur Squamous Epith Cells Moderate H (None-Few) per lpf Urine Bacteria None Seen (None-Few) per hpf Hyaline Casts None Seen (None-Few) per lpf Urine Yeast Many H (None Seen) per hpf Ur Culture Indicated? YES A (NO) Stool Occult Blood Positive A (Negative) A. baumannii (PCR) Not Detected (Not Detect) Cris albicans (PCR) Not Detected (Not Detect) C. glabrata (PCR) Not Detected (Not Detect) C. krusei (PCR) Not Detected (Not Detect) C. parapsilosis (PCR) Not Detected (Not Detect) C. tropicalis (PCR) Not Detected (Not Detect) Enterobacteriac sp PCR Not Detected (Not Detect) E. cloacae complex PCR Not Detected (Not Detect) Enterococcus sp PCR Not Detected (Not Detect) E. coli (PCR) Not Detected (Not Detect) H. influenzae (PCR) Not Detected (Not Detect) Klebsiella oxytoca PCR Not Detected (Not Detect) Klebsiella pneumoniae Not Detected (Not Detect) List. monocytogenes PCR Not Detected (Not Detect) N. meningitidis (PCR) Not Detected (Not Detect) Proteus species (PCR) Not Detected (Not Detect) Serratia marcescens PCR Not Detected (Not Detect) Staphylococcus sp PCR DETECTED A (Not Detect) Staph aureus (PCR) DETECTED A (Not Detect) mecA-Methicil Res Gene Not Detected (Not Detect) Streptococcus sp PCR Not Detected (Not Detect) Group A Strep DNA Not Detected (Not Detect) Group B Strep (PCR) Not Detected (Not Detect) Strep pneumoniae (PCR) Not Detected (Not Detect) P. aeruginosa (PCR) Not Detected (Not Detect) Tammy/B-Vanco Res Genes N/A (Not Detect) KPC (blaKPC) Detect PCR N/A (Not Detect) 03/25/18 Range/Units 14:58 Urine Color (Yellow) Urine Clarity (Clear) Urine pH (5.0-8.0) pH Units Ur Specific [place] (1.010-1.025) Urine Protein (Neg-Trace) mg/dL Urine Glucose (UA) (Normal) mg/dL Urine Ketones (Negative) mg/dL Urine Blood (Negative) Urine Nitrite (Negative) Urine Bilirubin (Negative) Urine Urobilinogen (Normal) mg/dL Ur Leukocyte Esterase (Negative) Urine Microscopic RBC (0-3) per hpf Urine Microscopic WBC (0-3) per hpf Ur Squamous Epith Cells (None-Few) per lpf Urine Bacteria (None-Few) per hpf Hyaline Casts (None-Few) per lpf Urine Yeast (None Seen) per hpf Ur Culture Indicated? (NO) Stool Occult Blood (Negative) A. baumannii (PCR) Not Detected (Not Detect) Cris albicans (PCR) Not Detected (Not Detect) C. glabrata (PCR) Not Detected (Not Detect) C. krusei (PCR) Not Detected (Not Detect) C. parapsilosis (PCR) Not Detected (Not Detect) C. tropicalis (PCR) Not Detected (Not Detect) Enterobacteriac sp PCR Not Detected (Not Detect) E. cloacae complex PCR Not Detected (Not Detect) Enterococcus sp PCR Not Detected (Not Detect) E. coli (PCR) Not Detected (Not Detect) H. influenzae (PCR) Not Detected (Not Detect) Klebsiella oxytoca PCR Not Detected (Not Detect) Klebsiella pneumoniae Not Detected (Not Detect) List. monocytogenes PCR Not Detected (Not Detect) N. meningitidis (PCR) Not Detected (Not Detect) Proteus species (PCR) Not Detected (Not Detect) Serratia marcescens PCR Not Detected (Not Detect) Staphylococcus sp PCR Not Detected (Not Detect) Staph aureus (PCR) Not Detected (Not Detect) mecA-Methicil Res Gene N/A (Not Detect) Streptococcus sp PCR DETECTED A (Not Detect) Group A Strep DNA Not Detected (Not Detect) Group B Strep (PCR) Not Detected (Not Detect) Strep pneumoniae (PCR) Not Detected (Not Detect) P. aeruginosa (PCR) Not Detected (Not Detect) Tammy/B-Vanco Res Genes N/A (Not Detect) KPC (blaKPC) Detect PCR N/A (Not Detect) Exam - Constitutional Vitals: Temp Pulse Resp BP Pulse Ox 98.6 F 82 18 115/67 97 04/04/18 07:31 04/04/18 07:31 04/04/18 07:31 04/04/18 07:31 04/04/18 07:31 General appearance: cooperative, no acute distress, obese - Head Head exam: Present: atraumatic, normal inspection, normocephalic - Eye Eye exam: Absent: normal appearance (left eye cloudy and atrophied.) - ENT ENT exam: Present: mucous membranes moist - Neck Neck exam: Present: normal inspection - Respiratory Respiratory exam: Present: CTAB. Absent: rales, respiratory distress, rhonchi, wheezes - Cardiovascular Cardiovascular exam: Present: irregular rhythm. Absent: tachycardia - GI/Abdominal GI/Abdominal exam: Present: distended (obese), normal bowel sounds, soft. Absent: tenderness - Extremities Exam Extremities exam: Present: pedal edema (Trace LLE), tenderness (left foot/ankle). Absent: normal inspection (LEft foot wound VAC dressing without evidence of leak and small amount of sanguinous drainage noted in the canister. [place] guaze dressing C/D/I.) - Neurological Exam Neurological exam: Present: alert, oriented X3, no focal deficits - Psychiatric Psychiatric exam: Present: normal affect, normal mood - Skin Skin exam: Present: dry, intact, normal color, warm - Additional findings Additional findings: Midline noted to the LUE with transparent dressing C/D/I. Consult Discharge Plan - Plan Additional Instructions: Change wound vac MWF. Follow up in wound clinic with Dr. Ayers. Please make appointment prior to D/C. Referrals: Agus Ayers DPM [Partnered Physician] - Isabelle Joseph CNP [Primary Care Provider] - Prescriptions: Cefazolin Sodium/D5w [Cefazolin 2 G/50 ml-D5w Bag] 2 gm IV Q8HR 49 Days #147 piggyback RX: Metoprolol [Lopressor] 12.5 mg PO BID 30 Days #60 tablet Pantoprazole Sodium [Protonix] 40 mg PO DAILY 30 Days #30 tab RX: Sucralfate [Carafate] 1 gm PO 0730,1630 30 Days #60 tablet RX: Warfarin perPT [Coumadin perPT] 2 mg PO DAILY@1800 PRN 7 Days #7 each PRN Reason: See Comments - Attending Attestation I examined this patient and my medical decision-making was reviewed with the Resident Physician. I agree with the documented findings, disposition and treatment plan as described except to the extent set forth below.
--- NOTE | 2018-04-04 11:28 | Physician Discharge Referral ---
ExtendedCare Referral Info Institutional Level of Care: Skilled - Diagnosis (1) A-fib Priority: Secondary Status: Acute (2) Bacteremia Priority: Secondary Status: Acute (3) Gas gangrene Priority: Primary Status: Acute (4) Diabetes mellitus with foot ulcer Priority: Secondary Status: Chronic (5) Acute kidney injury superimposed on CKD Priority: Secondary Status: Acute Prognosis: Fair - Transfer Medications Prescriptions: Cefazolin Sodium/D5w [Cefazolin 2 G/50 ml-D5w Bag] 2 gm IV Q8HR 49 Days #147 piggyback Metoprolol [Lopressor] 12.5 mg PO BID 30 Days #60 tablet Pantoprazole Sodium [Protonix] 40 mg PO DAILY 30 Days #30 tab Sucralfate [Carafate] 1 gm PO 0730,1630 30 Days #60 tablet Warfarin perPT [Coumadin perPT] 2 mg PO DAILY@1800 PRN 7 Days #7 each PRN Reason: See Comments Home Medications: Dorzolamide/Timolol [Cosopt] 1 drop OP BID 02/23/17 [History] Simvastatin [Zocor] 40 mg PO HS 02/23/17 [History] Ergocalciferol (VITAMIN D2) [Vitamin D2] 50,000 unit PO QWEEK 03/25/18 [History] Cefazolin Sodium/D5w [Cefazolin 2 G/50 ml-D5w Bag] 2 gm IV Q8HR 49 Days #147 piggyback 04/03/18 [Rx] Insulin LISPRO [HumaLOG] 0 units SQ HS vial 04/03/18 [Rx] Insulin LISPRO [HumaLOG] 0 units SQ TIDAC vial 04/03/18 [Rx] Insulin NPH/REG 70/30 (HUMAN) [Humulin 70/30 Vial] 20 unit SQ BIDAC [id number] 04/03/18 [Rx] Metoprolol [Lopressor] 12.5 mg PO BID 30 Days #60 tablet 04/03/18 [Rx] Pantoprazole Sodium [Protonix] 40 mg PO DAILY 30 Days #30 tab 04/03/18 [Rx] Sucralfate [Carafate] 1 gm PO 0730,1630 30 Days #60 tablet 04/03/18 [Rx] Warfarin perPT [Coumadin perPT] 2 mg PO DAILY@1800 PRN 7 Days #7 each 04/03/18 [Rx] Allergies/Adverse Reactions: Allergy/AdvReac Type Severity Reaction Status Date / Time lidocaine Allergy See Verified 02/23/17 16:30 Comments - Respiratory Orders Smoking Cessation: Smoking cessation has been advised. For more information, call the [place] Tobacco Quit Line at 8-114-RIXF-NOW. - Lab Orders Lab Orders: Other (include drug levels w/frequency) (PT/INR daily till INR therapeutic. Newly started on warfarin for afib.) - Rehabiliation Orders Rehab Orders: Evaluation for Physical Therapy, Evaluation for Occupational Therapy - Diet Orders No Concentrated Sweets CERTIFICATION: I certify that the transfer of the above named patient to an Extended Care Facility is necessary for the continuing treatment of the diagnosis listed. The above information is true and accurate reflection of patient's current condition. Confidential - Redisclosure prohibited without a patient's written consent.
[2018-04-04 12:21] VITALS: BP 130/70
== END 2018-04-04 13:00 | DRG 616 ==
LOC: 3NENU 14:23 → EMEROOARM 14:23 → 3NENU 17:41 → SUATTDRO 18:03 → 3NENU 03-26 23:12
PROVIDERS: ADMIT Internal Medicine; ATTEND Internal Medicine
PROC: ENDOEBX (2018-03-30 17:00)

== ENCOUNTER 2018-04-14 21:11 | Inpatient (IN) ==
--- NOTE | 2018-04-14 21:29 | Emergency Department Note ---
Disposition Clinical Impression: Chest pain, Pleural effusion, Elevated troponin Disposition: Admitted As Inpatient Condition: Fair Referrals: Isabelle Joseph CNP [Primary Care Provider] - Chest Pain HPI - General Stated Complaint: CP SOB Time Seen by Provider: 04/14/18 21:24 Source: patient, family Mode of arrival: EMS Limitations: no limitations Vital Signs Reviewed: Yes Nursing Notes Reviewed: Yes - History of Present Illness HPI Narrative: 78-year-old female presents emergency room for chest pain. Onset earlier this morning. Intermittent all day. Patient lives at a nursing facility at this time as she is undergoing rehabilitation purposes for her left foot surgery. She admits that she had some chest discomfort earlier this morning that was relieved with nitroglycerin. It returned this evening. She received 2 nitroglycerin sublingual at the intermediate but no improvement. They sent her to the ER for evaluation. Her last heart evaluation was in 2000 after she had bypass surgery. She said no interventions with her heart since then. She describes her pain is an 8 out of 10. Located over the left anterior chest wall. Seems to be worse with movement. She did feel nauseated with it this evening and thought she might have thrown up but never did. She does not feel significantly short of breath. She had this recent surgery on her left foot in which she had a partial amputation secondary to diabetic complications. She currently has a wound VAC placement and is undergoing rehabilitation at a local nursing facility for this. - Related Data Allergies Allergy/AdvReac Type Severity Reaction Status Date / Time lidocaine Allergy Anaphylaxis Verified 04/14/18 21:19 All systems ED: reviewed and negative except as stated. Constitutional: Reports: as per HPI Eyes: Reports: as per HPI ENT ED: Reports: as per HPI Cardiovascular: Reports: chest pain Respiratory: Reports: as per HPI Gastrointestinal: Reports: as per HPI Genitourinary: Reports: as per HPI Musculoskeletal: Reports: as per HPI Integumentary: Reports: as per HPI Neurological: Reports: as per HPI Psychiatric: Reports: as per HPI Endocrine: Reports: as per HPI Hematological/Lymphatic: Reports: as per HPI Physical Exam - General Limitations: no limitations General appearance: alert, in no apparent distress - Eye Eye exam: Present: normal appearance - Neck Neck exam: Present: normal inspection - Chest Chest inspection: Present: normal inspection, symmetric chest wall rise - Respiratory Respiratory exam: Present: normal lung sounds bilaterally. Absent: prolonged ex piratory phase - Cardiovascular Cardiovascular exam: Present: regular rate, normal rhythm, normal heart sounds - Abdominal Exam Abdominal exam: Present: soft, Non-Tender, normal bowel sounds - Extremities Exam Extremities exam: Present: normal inspection - Expanded Lower Extremity Exam Hip/Pelvis exam: Present: other (Patient has a wound VAC and wound dressing to the left foot.) - Back Exam Back exam: Present: normal inspection - Neurological Exam Neurological exam: Present: alert, oriented X3 - Psychiatric Psychiatric exam: Present: normal affect, normal mood - Skin Skin exam: Present: warm, dry, intact Course - Reevaluation(s) Reevaluation #1: spoke with hospitalist who has accepted pt will order type and screen as well Vital Signs Temperature 98.5 F 04/14/18 21:19 Pulse Rate 82 04/14/18 21:19 Respiratory Rate 20 04/14/18 21:19 Blood Pressure 129/68 04/14/18 21:19 O2 Sat by Pulse Oximetry 100 04/14/18 21:19 Temperature 98.5 F 04/14/18 21:27 Pulse Rate 76 04/14/18 21:31 Respiratory Rate 14 04/14/18 21:31 Blood Pressure 123/69 04/14/18 21:31 O2 Sat by Pulse Oximetry 100 04/14/18 21:31 Oxygen Delivery Oxygen Delivery Nasal Cannula Chest Pain - MDM Narrative Medical decision making narrative: Patient's lab work revealed a slightly elevated troponin. Her EKG did not show any signs of ischemia. Her chest pain seems to be atypical. We did a CTA of the chest to rule out any pulmonary embolus. That was negative for PE but she does have a right sided small pleural effusion and some trace fluid on the left. I thought she had some atelectasis in the bases but cannot rule out bilateral pneumonia. I think most of this seems to be fluid related as the cause of her symptoms. Patient needs to be admitted for further cardiac evaluation. We will place some Nitropaste on her as well. She was given aspirin. I will give her some Lovenox secondary to the elevated troponin. Patient denies any dark bloody or tarry stools. She was anemic at 8.8. The hospitalist would like me to add on a type and screen. - Medical Records Medical records reviewed: Yes I reviewed the patient's medical records. - Lab Data Lab results reviewed: Yes I reviewed the patient's lab results. Result diagrams: 04/14/18 21:55 04/14/18 21:55 Lab Results 04/14/18 04/14/18 04/14/18 Range/Units 21:55 21:55 21:55 WBC 7.1 (4.3-11.1) K/mcL RBC 3.08 L (3.82-4.97) M/mcL Hgb 8.8 L (11.5-15.4) g/dL Hct 27.6 L (35.3-44.9) % MCV 89.6 (83.0-100.0) fL MCH 28.6 (28.0-33.3) pg MCHC 31.9 (31.6-35.5) g/dL RDW 16.1 H (11.5-14.5) % Plt Count 412 H (140-400) K/mcL MPV 12.2 (9.4-12.4) fL Immature Gran % 0.3 (0-4) % Seg Neutrophils % 61.6 % Lymphocytes % 20.1 % Monocytes % 12.3 % Eosinophils % 5.1 % Basophils % 0.6 % Neutrophils # 4.4 (1.6-8.9) K/mcL Lymphocytes # 1.4 (0.6-4.6) K/mcL Monocytes # 0.9 (0.0-1.3) K/mcL Eosinophils # 0.4 (0.0-0.6) K/mcL Basophils # 0.0 (0.0-0.2) K/mcL PT 18.5 H (9.4-12.1) Seconds INR 1.6 APTT 30.0 (26.0-36.0) Seconds Sodium 141 (136-145) mEq/L Potassium 3.8 (3.5-5.1) mEq/L Chloride 107 (98-107) mEq/L Carbon Dioxide 28 (23-29) mEq/L BUN 28 H (8-23) mg/dL Creatinine 0.99 (0.60-1.20) mg/dL Est GFR ( Amer) > 60 (> 60) Est GFR (Non-Af Amer) 54 L (> 60) BUN/Creatinine Ratio 28 H (6-26) Glucose 96 (70-105) mg/dL Calculated Osmolality 297 (280-300) Calcium 8.7 (8.6-10.3) mg/dL Troponin I 0.05 H* (< 0.04) ng/mL - Radiology Data Radiology results reviewed: Yes I reviewed the patient's radiology results. - EKG Data EKG attestation: Yes I reviewed and interpreted this EKG. EKG results narrative: EKG shows a sinus rhythm of 81. NH interval 194. QRS 130. QTC 465. Heart Score - Score History: Moderately Suspicious EKG: Non Specific repolarisation Disturbance Age: Greater than 65 Risk Factors: 1-2 risk factors Troponin: 1-3x normal limit HEART Score Total: 6 Critical Care Time Critical Care Time: Yes Total Critical Care Time: 35 Attestation: 35 minutes of critical care time spent in management of elevated troponin, chest pain pleural effusion
[2018-04-14] MEDS ORDERED: Aspirin 325 MG TABLET PO ONE (21:48)
[2018-04-14] MEDS ORDERED: Nitroglycerin 0.4 MG TAB.SUBL SL PRN (21:48)
[2018-04-14 22:05] LABS: Basophils % 0.6 %; Eosinophils # 0.4 K/mcL (0.0-0.6); Eosinophils % 5.1 %; Hematocrit 27.6 % (35.3-44.9); Hemoglobin 8.8 g/dL (11.5-15.4); Immature Granulocytes % 0.3 % (0-4); Lymphocytes # 1.4 K/mcL (0.6-4.6); Lymphocytes % 20.1 %; Mean Corpuscular HGB Conc 31.9 g/dL (31.6-35.5); Mean Corpuscular Hemoglobin 28.6 pg (28.0-33.3); Mean Corpuscular Volume 89.6 fL (83.0-100.0); Mean Platelet Volume 12.2 fL (9.4-12.4); Monocytes # 0.9 K/mcL (0.0-1.3); Monocytes % 12.3 %; Neutrophils # 4.4 K/mcL (1.6-8.9); Platelet Count 412 K/mcL (140-400); Red Blood Count 3.08 M/mcL (3.82-4.97); Red Cell Distribution Width 16.1 % (11.5-14.5); Segmented Neutrophils % 61.6 %
[2018-04-14] MEDS ORDERED: Isovue-370 500 ML INFUS..BTL IV ONE (22:10)
[2018-04-14 22:12] LABS: INR 1.6; Prothrombin Time 18.5 Seconds (9.4-12.1)
[2018-04-14 22:27] LABS: BUN/Creatinine Ratio 28 (6-26); Blood Urea Nitrogen 28 mg/dL (8-23); Calcium 8.7 mg/dL (8.6-10.3); Carbon Dioxide 28 mEq/L (23-29); Chloride 107 mEq/L (98-107); Glucose 96 mg/dL (70-105); Osmolality,Calculated 297 (280-300); Potassium 3.8 mEq/L (3.5-5.1); Sodium 141 mEq/L (136-145); eGFR For Non-African Americans 54 (> 60)
[2018-04-14 22:37] LABS: Troponin I 0.05 ng/mL (< 0.04)
[2018-04-14] MEDS ORDERED: Nitroglycerin 1 INCH/GM PACKET TP ONE (23:46)
[2018-04-15] MEDS ORDERED: *HR* Enoxaparin 100 MG/ML SYRINGE SQ ONE (00:15)
[2018-04-15] MEDS ORDERED: Naloxone 0.4 MG/ML INJ IVP PRN (04:23)
[2018-04-15] MEDS ORDERED: Dextrose Gel 15 GM/37.5 ML TUBE PO PRN ×2 (04:25)
[2018-04-15] MEDS ORDERED: *HR* Dextrose 50 % in Water (Syg) 50 ML SYRINGE IVP PRN (04:25)
[2018-04-15] MEDS ORDERED: D5% in Water 1,000 ML IVC PRN (04:25)
--- NOTE | 2018-04-15 04:32 | Internal Med History&Physical ---
Date of Encounter: 04/15/18 Time of Encounter: 03:40 Internal Medicine - H&P: HPI Chief complaint: Chest pain Admitted From: Emergency Dept Plans for Post Hospital Care: Home History of present illness: Ms. Kaplan is a 78 year old female Patient presented to the emergency room with history of chest pain. Patient states that the pain started the morning she presented to the emergency room, was associated with shortness of breath, and gradually worsened. The chest pain initially started on her left side, but by the end of the day had migrated to the right side. As a shortness of breath was increasing patient came to the emergency room for further evaluation. Of note, patient states about 2 weeks ago she was here in the hospital and had her left foot amputated at the midfoot, then was transferred to [facility] for further rehabilitation. In the emergency room patient's CBC was significant for hemoglobin of 8.8. BMP was within normal limits, troponins elevated at 0.05, and INR was elevated at 1.6. Chest x-ray showed no acute abnormalities, CT angio showed no PE, but did show small right and trace left pleural effusions. CT angio also demonstrated mildly dilated upper esophagus with food debris and 2.3 x 1.2 cm radiodensity within the lower intrathoracic esophagus that may demonstrate a retained tablet or pill. She was given a dose of Lovenox, aspirin, sublingual nitroglycerin as well as Nitropaste and sent to the medicine floor for further evaluation. Upon my assessment, patient is resting in the bed, but is arousable. Patient's is at bedside. Patient states she now feels better, denies shortness of breath and chest pain. She also denies nausea, vomiting, diarrhea, constipation and abdominal pain. She states that she has a history of quadruple bypass surgery in 2000. Her chest pain today was exacerbated by movement. She has pain in her left foot which is no different then it has been since amputation. Of note patient's previous medical history and chart were not available initially while patient was in the emergency room due to issues with registration, and patient received a new account number for this hospitalization. Significant portions of patient's medical history were not known nor reviewed in the emergency room. Please see assessment and plan for further information, bed management and registration have been notified and will be combining accounts later in the day. Past Med Surg Social Fam HX - Past Medical History Medical history: diabetes Psychiatric history: no psych history - Past Surgical History Additional surgical history: left foot amputee - Social History Smoking Status: Never smoker Alcohol use: none Drug use: none - Family History Father Adopted: [place]: [place] Family Member Ethnicity: Non- Living Status: Age at : 65 Hx Family Cardiac Disorders: No Hx Family Respiratory Disorders: No Hx Family Cancer: Yes (COLON) Hx Family GI Disorders: Yes Hx Family Genitourinary Disorders: No Hx Family Endocrine Disorder: Yes (DM) Hx Family Musculoskeletal Disorders: No Hx Family Neuromuscular Disorders: No Hx Family Neurologic Disorders: No Hx Family HEENT Disorders: No Hx Family Autoimmune Disorders: No Hx Family Reproductive Disorders: No Hx Family Psychosocial Disorders: No Hx Family Medical Disorders: No Internal Medicine - H&P: Meds Dorzolamide HCl/Pf [Dorzolamide 2% Eye Drop] 1 % OP BID 04/15/18 [History] Ergocalciferol (VITAMIN D2) [Vitamin D] 400 unit PO DAILY 04/15/18 [History] Ondansetron HCl [Zofran] 4 mg PO Q8HR PRN 04/15/18 [History] Pantoprazole Sodium [Protonix] 40 mg PO 04/15/18 [History] Sucralfate [Carafate] 1 gm PO QIDAC 04/15/18 [History] Allergy/AdvReac Type Severity Reaction Status Date / Time lidocaine Allergy Anaphylaxis Verified 04/14/18 21:19 All Systems PM: A 10-system review of systems was performed and is negative for pertinent findings except as documented above in the HPI. - Constitutional Vitals: Temp Pulse Resp BP Pulse Ox 98.0 F 76 14 116/66 97 04/15/18 01:44 04/15/18 01:44 04/15/18 01:44 04/15/18 01:44 04/15/18 01:44 General appearance: Present: cooperative, A&O X 3, pleasant, no acute distress, answers questions appropriately Exam: As above - Head Head exam: Present: normal inspection - Eye Eye exam: Absent: normal appearance Additional comments: Left eye corneal opacity, and blindness - Neck Neck exam general surgery: Absent: tenderness - Respiratory Respiratory exam: Present: CTAB. Absent: chest wall tenderness, decreased breath sounds, rales, respiratory distress, wheezes - Cardiovascular Cardiovascular exam: Present: RRR. Absent: diastolic murmur, systolic murmur - GI/Abdominal GI/Abdominal exam: Present: normal bowel sounds, soft. Absent: tenderness - Extremities Exam Extremities exam: Present: warm, radial pulses palpable and symmetrical. Absent: pedal edema, tenderness Additional comments: Left foot in boot, with dressing applied over amputation site in the midfoot. - Neurological Exam Neurological exam: Present: no focal deficits, strengths equal and symetr throughout. Absent: CN II-XII intact, motor sensory deficit, facial droop, speech deficit Additional comments: Left optic nerve damage, blindness - Skin Skin exam: Present: dry, normal color, warm Internal Med - H&P Results - Labs CBC & Chem 7: 04/14/18 21:55 04/14/18 21:55 Labs: Short CBC 04/14/18 Range/Units 21:55 WBC 7.1 (4.3-11.1) K/mcL Hgb 8.8 L (11.5-15.4) g/dL Hct 27.6 L (35.3-44.9) % Plt Count 412 H (140-400) K/mcL Neutrophils # 4.4 (1.6-8.9) K/mcL BMP 04/14/18 21:55 Sodium 141 Potassium 3.8 Chloride 107 Carbon Dioxide 28 BUN 28 H Creatinine 0.99 Glucose 96 Calcium 8.7 Cardiac Enzymes 04/14/18 Range/Units 21:55 Troponin I 0.05 H* (< 0.04) ng/mL - Impressions ITS Impressions Chest X-Ray 04/14/18 21:26 IMPRESSION: Cardiomegaly, otherwise, no acute abnormality seen in the chest D/ / Cameron King MD / Cameron King MD Interpreting Provider: aCmeron King MD Chest CTA 04/14/18 22:10 IMPRESSION: No CT evidence of pulmonary embolism. Some of the subsegmental pulmonary arteries in the lower lobes are not evaluated. Four-chamber cardiac enlargement. Small right and trace left pleural effusions. Bibasilar airspace disease likely represents atelectasis. Pneumonia cannot be excluded. Ovoid 2.3 cm radiodensity within the mid to lower esophagus which could represent retained tablet/pill. The upper esophagus is mildly patulous with food debris. Several left axillary lymph nodes, increased in number. Questionable asymmetric density within the left breast. Correlation with mammographic studies is recommended. D/ / Stacy Ivey Cha, MD / Stacy Ivey Cha, MD Interpreting Provider: Stacy Ivey Cha, MD - Assessment and plan (1) Chest pain Current Visit: Yes Status: Acute Assessment and plan: Patient's chest pain now resolved. Troponin level elevated at 0.05 in the emergency room. On repeat this morning 0.04. Continue to trend troponins Continue cardiac monitoring Cardiology consult Echocardiogram performed on 03/26/18: Findings: Study Quality * Technically adequate exam. ECG Findings * Atrial fibrillation, bundle branch block. Left Ventricle * LVEF 45%. * Normal LV chamber size, wall thickness. * Mild segmental left ventricular systolic dysfunction. * Indeterminate diastolic function. * Atypical septal motion consistent with post-operative status. Right Ventricle * Normal right ventricular structure and function. Left Atrium * Mildly dilated left atrium. Right Atrium * Normal right atrial size. Aortic Valve * Trileaflet aortic valve. * Mildly sclerotic aortic valve leaflets. * No aortic regurgitation. * Mild aortic sclerosis. Mean gradient 11 mmHg. Mitral Valve * Mildly thickened mitral valve leaflets and subvalvular apparatus. * Mild mitral annular calcification. * No mitral regurgitation. * Mild mitral stenosis. Mean gradient 5 mmHg. Tricuspid Valve * Normal tricuspid valve structure. * Mild tricuspid regurgitation. * Borderline mild pulmonary hypertension. Pulmonic Valve * Normal pulmonic valve structure and function. * No pulmonic regurgitation. Aorta * Normally sized aortic root. Pericardium * The pericardium appears normal. IVC * Normal IVC dimensions and inspiratory collapse. Pulmonary Artery * Normal visualized portions of the main pulmonary artery. SUDEEP performed on 03/31/18: Impressions: No valvular vegetation. LVEF 25-30 %. Severe global LV hypokinesis. Moderatel global RV hypokinesis. Mildly dilated LA. Mild mitral regurgitation. Moderate tricuspid regurgitation. Moderate pulmonary hypertension. Qualifiers: Chest pain type: unspecified Qualified Code(s): R07.9 - Chest pain, unspecified (2) Elevated troponin Current Visit: Yes Status: Acute Assessment and plan: Troponin 0.05 in the emergency room, improved to 0.04 this morning. Patient no longer having chest pain. Elevation could be result of demand ischemia from anemia, recent surgery. Cardiology consult. Continue to trend troponins Cardiac monitoring Echo cardiogram recently performed, results above. Consider stress test (3) Elevated INR Current Visit: Yes Status: Acute Assessment and plan: Patient was started on Coumadin at her last admission for atrial fibrillation, with a goal target range for INR to be 2-3. In the emergency room her INR was 1.6. Patient does have recent foot amputation, as well as on her last visit stool positive occult blood. She had an EGD performed on 03/30/18 for indications of iron deficiency anemia secondary to chronic blood loss. She was found to have LA grade a esophagitis, gastritis and multiple nonbleeding duodenal ulcers with no stigmata of bleeding. Will need to monitor hemoglobin, she was typed and screened in the emergency room. Repeat stool occult blood Holding Coumadin for now (4) Anemia Current Visit: Yes Status: Acute Assessment and plan: Likely secondary to iron deficiency, chronic disease as well as blood loss. Based on her last lab work, she had low iron elevated ferritin and low transferrin. Her percent saturation of iron was within normal limits. Start iron supplementation once occult blood test performed to avoid false positive. From discharge records, I do not believe she was discharged on iron. Monitor hemoglobin daily 6 hours Patient typed and screened in the emergency room, transfuse if indicated Repeating occult blood test Holding Coumadin for now, patient given a dose of Lovenox in the emergency room. Can consider reversing Lovenox with protamine, will follow-up with repeat hemoglobin. Qualifiers: Anemia type: iron deficiency Qualified Code(s): D50.9 - Iron deficiency anemia, unspecified (5) History of recent surgery Current Visit: Yes Status: Acute Assessment and plan: Patient recently had left foot amputation at the mid foot. She was discharged from the hospital 04/03/18 to [facility]. While there she has been seeing wound care, and has had a wound VAC on her foot. Had her last admission she was discharged on cefazolin for 6-8 weeks as recommended by infectious disease. She is also supposed to follow-up with daily INR checks and hemoglobin monitoring as well. Unclear at this time if this was being done. Wound care consult for continued wound VAC application Continue cefazolin Continue to monitor hemoglobins as above (6) Diabetes Current Visit: Yes Status: Acute Assessment and plan: Continue to monitor sugars every 6 hours while nothing by mouth, diabetic diet when okay to eat Low-dose sliding scale insulin as needed Qualifiers: Diabetes mellitus type: type 2 Diabetes mellitus terminal carman insulin use: with terminal carman use Diabetes mellitus complication detail: with diabetic retinopathy Diabetic retinopathy severity: with unspecified retinopathy severity Diabetes mellitus macular edema: macular edema presence unspecified Laterality: left Qualified Code(s): E11.319 - Type 2 diabetes mellitus with u nspecified diabetic retinopathy without macular edema; Z79.4 - [facility] (current) use of insulin (7) Atrial fibrillation Current Visit: Yes Status: Acute Assessment and plan: Patient had a CHADSVASC2 of 6, discharged on Coumadin for long-term anticoagulation. Currently INR is subtherapeutic. Continue to hold Coumadin until hemoglobin stabilizes Patient received 100 mg dose of Lovenox in the emergency room Qualifiers: Atrial fibrillation type: unspecified Qualified Code(s): I48.91 - Unspecified atrial fibrillation (8) DVT prophylaxis Current Visit: Yes Status: Acute Assessment and plan: Lovenox given in the emergency room, 100 mg subcutaneous. This is despite patient's anemia of 8.8 hemoglobin. If it were to be given Q12H, next dose of Lovenox would be due at around 1:30 this afternoon. Will need to watch hemoglobin carefully, patient has been typed and screened. Patient discharged from previous admission on Coumadin, which explains INR 1.6. Holding Coumadin for now until hemoglobin stabilizes Repeat CBC at 9am Follow up results. - Time Spent With Patient Total time spent is greater than 50% in coordination of care (as documented) at patient's floor/unit and/or counseling patient: Greater than 35 minutes
[2018-04-15 05:03] LABS: Hematocrit 25.4 % (35.3-44.9); Hemoglobin 7.8 g/dL (11.5-15.4); Mean Corpuscular HGB Conc 30.7 g/dL (31.6-35.5); Mean Corpuscular Hemoglobin 27.7 pg (28.0-33.3); Mean Corpuscular Volume 90.1 fL (83.0-100.0); Platelet Count 380 K/mcL (140-400); Red Blood Count 2.82 M/mcL (3.82-4.97)
[2018-04-15 05:21] LABS: BUN/Creatinine Ratio 27 (6-26); Blood Urea Nitrogen 25 mg/dL (8-23); Calcium 8.3 mg/dL (8.6-10.3); Carbon Dioxide 27 mEq/L (23-29); Chloride 108 mEq/L (98-107); Glucose 64 mg/dL (70-105); Osmolality,Calculated 294 (280-300); Potassium 3.5 mEq/L (3.5-5.1); Sodium 141 mEq/L (136-145); eGFR For Non-African Americans 58 (> 60)
[2018-04-15] MEDS: Insulin LISPRO 300 UNITS/3 ML VIAL SQ SCH ×4 (06:12→23:55)
[2018-04-15] MEDS: Sucralfate 1 GM TABLET PO SCH ×2 (06:38→15:23)
[2018-04-15] MEDS: Pantoprazole 40 MG VIAL IVP SCH ×2 (06:38→17:18)
[2018-04-15] MEDS ORDERED: Ondansetron ODT 4 MG TAB.RAPDIS PO PRN (07:45)
[2018-04-15] MEDS ORDERED: Dorzolamide OPTH 10 ML BOTTLE BOTH EYES SCH (09:00)
[2018-04-15] MEDS: Cholecalciferol (D-3) 1,000 UNIT TABLET PO SCH (09:07)
[2018-04-15] MEDS: ceFAZolin 1,000 MG in Water for inj. (sterile) 20 ML 10 ML IVP SCH ×3 (09:07→23:50)
[2018-04-15 09:44] LABS: Hematocrit 24.3 % (35.3-44.9); Hemoglobin 7.5 g/dL (11.5-15.4); Mean Corpuscular HGB Conc 30.9 g/dL (31.6-35.5); Mean Corpuscular Hemoglobin 27.9 pg (28.0-33.3); Mean Corpuscular Volume 90.3 fL (83.0-100.0); Mean Platelet Volume 11.7 fL (9.4-12.4); Platelet Count 382 K/mcL (140-400); Red Blood Count 2.69 M/mcL (3.82-4.97); Red Cell Distribution Width 16.1 % (11.5-14.5)
[2018-04-15] MEDS: OXYCODONE Oral CONC 10 MG/0.5 ML ORAL.SYG SL PRN (11:23)
[2018-04-15] MEDS ORDERED: Nitroglycerin 0.4 MG TAB.SUBL SL PRN (13:10)
--- NOTE | 2018-04-15 15:15 | Cardiology Consult Note ---
Date of Encounter: 04/15/18 Time of Encounter: 09:00 Assessment and Plan (1) Atypical chest pain Current Visit: Yes Status: Acute Patient is currently chest pain-free.Troponin is flat. EKG shows normal acute ST-T changes Continue aspirin 81 mg daily, switch metoprolol titrate to metoprolol succinate 50 mg daily. Commence lisinopril 2.5 mg daily. Continue moderate dose statin Obtain pharmacological nuclear stress test for Tuesday. (2) Cardiomyopathy Current Visit: Yes Status: Acute Transthoracic echocardiogram done on 03/26/18 showed LVEF of 45% with the mid inferior, basal inferior and apical septal alston being hypokinetic. However SUDEEP done on 03/31/18 showed LVEF of 25-30%. No vegetations were found on the valves at the time. We will repeat echocardiogram and obtain a pharmacological nuclear stress test to rule out ischemia. Qualifiers: Cardiomyopathy type: ischemic Qualified Code(s): I25.5 - Ischemic c ardiomyopathy (3) Atrial fibrillation Current Visit: Yes Status: Acute Currently in sinus rhythm. CHADSVASC2 of 6, discharged on Coumadin for long-term anticoagulation. Currently INR is subtherapeutic. Continue rate control with metoprolol and recommended to begin IV heparin to therapeutic PTT until INR is therapeutic on warfarin. Qualifiers: Atrial fibrillation type: unspecified Qualified Code(s): I48.91 - Unspecified atrial fibrillation Discussion w patient/family: The assessment and plan as outlined above was discussed with the patient and/or family members who expressed understanding and agreement. All questions were answered. Thank you for involving us in the care of your patient. Please call with any questions. History of Present Illness Consult date: 04/15/18 History of present illness: Ms. Kaplan is a pleasant 78 year old female with PMHx significant for CAD s/p CABG (2000), paroxysmal A. 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 Patient presented to the emergency room with history of right-sided chest pain at rest 3/10 in intensity, nonradiating, relieved with nitroglycerin sublingual at the group home where she is rehabbing. There was associated shortness of breath, but no nausea or diaphoresis. She has not been doing much physically because she cannot stand on her feet. She had her cardiac bypass surgery at [place] many years ago and has not followed up with the cvicu nurse since moving to [place] in 2004. Past Med Surg Social Fam HX - Past Medical History Medical history: diabetes Psychiatric history: no psych history - Past Surgical History Additional surgical history: left foot amputee - Social History Smoking Status: Never smoker Alcohol use: none Drug use: none - Family History Father Adopted: [place]: SNEHAL Family Member Ethnicity: Non- Living Status: Age at : 65 Hx Family Cardiac Disorders: No Hx Family Respiratory Disorders: No Hx Family Cancer: Yes (COLON) Hx Family GI Disorders: Yes Hx Family Genitourinary Disorders: No Hx Family Endocrine Disorder: Yes (DM) Hx Family Musculoskeletal Disorders: No Hx Family Neuromuscular Disorders: No Hx Family Neurologic Disorders: No Hx Family HEENT Disorders: No Hx Family Autoimmune Disorders: No Hx Family Reproductive Disorders: No Hx Family Psychosocial Disorders: No Hx Family Medical Disorders: No Medications and Allergies Acetaminophen [Tylenol] 650 mg PO Q4H PRN 04/15/18 [History] Cefazolin Sodium/D5w [Cefazolin 2 G/50 ml-D5w Bag] 1 vial IV DAILY 04/15/18 [History] Dorzolamide/Timolol/Pf [Dorzolamide-Timolol 2%-0.5%] 1 drop OP BID 04/15/18 [History] Ergocalciferol (VITAMIN D2) [Drisdol (50,000 Unit)] 50,000 unit PO MO 04/15/18 [History] Insulin NPH Hum/Reg Insulin Hm [Humulin 70-30 Vial] 20 unit SQ BID 04/15/18 [History] Metoprolol [Lopressor] 12.5 mg PO BID 04/15/18 [History] Nitroglycerin [Nitrostat] 0.4 mg SL PRN PRN 04/15/18 [History] Ondansetron HCl [Zofran] 4 mg PO Q4H PRN 04/15/18 [History] Pantoprazole Sodium [Protonix] 40 mg PO DAILY 04/15/18 [History] Simvastatin [Zocor] 40 mg PO DAILY 04/15/18 [History] Sucralfate [Carafate] 1 gm PO QIDAC 04/15/18 [History] Warfarin perPT [Coumadin perPT] 2 mg PO DAILY 04/15/18 [History] Allergy/AdvReac Type Severity Reaction Status Date / Time lidocaine Allergy Anaphylaxis Verified 04/14/18 21:19 All Systems Review: The remainder of the systems were reviewed and are negative - Constitutional Constitutional: no chills, no fever(s), no headache(s) - EENT Eyes: no blurred vision Nose, mouth and throat: no bleeding gums - Cardiovascular Cardiovascular: as per HPI, chest pain at rest, no dyspnea at rest, no orthopnea , no palpitations, no syncope - Respiratory Respiratory: no cough, no dyspnea, no wheezing - Gastrointestinal Gastrointestinal: no abdominal pain - Genitourinary Genitourinary: no dysuria - Neurological Neurological: no dizziness - Hematological/Lymphatic Hematologic/Lymphatic: no easy bleeding Physical Examination Vital Signs, Last 4 Hours Temp Pulse Resp BP Pulse Ox 04/15/18 12:14 98 F 86 16 127/70 100 General: Conversant HEENT: Atraumatic Neck: No JVD Cardiac: Reg Rate and Rhythm, Normal S1 and S2 Lungs: Normal Breath Sounds, No Wheeze, Rales, Rhonchi Neuro: Alert and responsive, No focal deficits noted Extremities: Other (Mild pedal edema) Results 04/15/18 09:37 04/15/18 04:45 Lab Results 04/14/18 04/14/18 04/14/18 21:55 21:55 21:55 WBC 7.1 Hgb 8.8 L Hct 27.6 L Plt Count 412 H INR 1.6 APTT 30.0 Sodium 141 Potassium 3.8 Chloride 107 Carbon Dioxide 28 BUN 28 H Creatinine 0.99 Glucose 96 Calcium 8.7 Troponin I 0.05 H* 04/15/18 04/15/18 04/15/18 04:09 04:45 04:45 WBC 7.6 Hgb 7.8 L Hct 25.4 L Plt Count 380 INR APTT Sodium 141 Potassium 3.5 Chloride 108 H Carbon Dioxide 27 BUN 25 H Creatinine 0.93 Glucose 64 L Calcium 8.3 L Troponin I 0.04 H* 04/15/18 04/15/18 09:37 09:37 WBC 7.5 Hgb 7.5 L Hct 24.3 L Plt Count 382 INR APTT Sodium Potassium Chloride Carbon Dioxide BUN Creatinine Glucose Calcium Troponin I 0.05 H* Consult Discharge Plan - Plan Referrals: Isabelle Joseph CNP [Primary Care Provider] -
--- NOTE | 2018-04-15 15:27 | Electrocardiograph Report ---
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
--- NOTE | 2018-04-15 15:57 | Event Note ---
Date of Encounter: 04/15/18 Time of Encounter: 15:52 78-year-old female with past medical history of diabetes mellitus, atrial fibrillation, CAD status post CABG, and recent foot surgery by podiatry who presented from rehabilitation center because of chest pain. Chest pain was located at the left side of the chest, radiated to the right side. Initial troponin was slightly elevated, but EKG had no acute ST changes. Serial troponin was at a fast rate. Cardiology was consulted. - Per , patient has been doing a lot of lifting with arms recently at the rehabilitation center, this could be the cause of chest pain. However due to her significant CV risk factors, stress test and echocardiogram were recommended by cardiology. - Another concerning disease is anemia, patient recent had a EGD which showed severe esophagitis, gastritis, and a nonbleeding ulcers. Hemoglobin on admission was 8.9 (04/14/2018), dropped to 7.5 on 04/15/2018. Pending stool for occult blood. Due to the risk of bleeding, Coumadin was on hold. May resume Coumadin once GI bleeding being ruled out. - Patient recent echocardiogram revealed EF 25%, global LV hypokinesia. Patient currently is euvolemic on physical exam, blood pressure was well controlled, continue Lopressor for both BP control and rate control for atrial fibrillation. - Recent left foot amputation due to chronic diabetes mellitus, patient discharged to [place] with IV Ancef for 6-8 weeks per Infectious Disease. Had a wound vac on. continue wound vac and dressing change.
[2018-04-15 19:59] LABS: Hematocrit 28.4 % (35.3-44.9); Hemoglobin 8.7 g/dL (11.5-15.4); Mean Corpuscular HGB Conc 30.6 g/dL (31.6-35.5); Mean Corpuscular Hemoglobin 27.9 pg (28.0-33.3); Mean Platelet Volume 11.8 fL (9.4-12.4); Platelet Count 428 K/mcL (140-400); Red Blood Count 3.12 M/mcL (3.82-4.97); Red Cell Distribution Width 16.2 % (11.5-14.5)
[2018-04-15] MEDS: Insulin NPH/REG 70/30 100 UNIT/ML (x5UNIT) SQ SCH (21:33)
[2018-04-15] MEDS: Dorzolamide/Timolol OPTH 10 ML BOTTLE RIGHT EYE SCH (21:34)
[2018-04-16] MEDS: Sucralfate 1 GM TABLET PO SCH ×2 (05:56→16:07)
[2018-04-16] MEDS: Pantoprazole 40 MG VIAL IVP SCH ×2 (05:56→17:41)
[2018-04-16] MEDS: Insulin LISPRO 300 UNITS/3 ML VIAL SQ SCH ×4 (05:56→23:57)
[2018-04-16] MEDS ORDERED: Perflutren Lipid Microsphere 1.3 ML in 0.9 % Sodium Chloride 8.7 ML IVP ONE (08:33)
[2018-04-16] MEDS ORDERED: Perflutren Lipid Microsphere 2 ML VIAL ONE (08:36)
[2018-04-16] MEDS: Cholecalciferol (D-3) 1,000 UNIT TABLET PO SCH (08:53)
[2018-04-16] MEDS: Dorzolamide/Timolol OPTH 10 ML BOTTLE RIGHT EYE SCH ×2 (08:54→20:14)
[2018-04-16] MEDS: ceFAZolin 1,000 MG in Water for inj. (sterile) 20 ML 10 ML IVP SCH ×3 (08:54→23:55)
[2018-04-16] MEDS: Insulin NPH/REG 70/30 100 UNIT/ML (x5UNIT) SQ SCH ×2 (09:00→20:15)
[2018-04-16] MEDS ORDERED: NON-FORMULARY MEDICATION 1 EACH EACH (Pantoprazole Sodium [Protonix] 40 MG) PO SCH (09:00)
--- NOTE | 2018-04-16 09:02 | Internal Med Progress Note ---
Hospitalist Progress Note - Encounter Date of Encounter: 04/16/18 Time of Encounter: 11:44 - Subjective Interval History: 78-year-old female with an extensive history of CAD including quadruple bypass in 2000. Presenting from an [facility] rehabilitation Center with left-sided chest pain radiation to the right which gradually worsened throughout the day of pre sentation. Additionally, she was found to be dyspneic on arrival. Troponins were mildly elevated at 0.04, 0.05 and then 0.04. CXR showing cardiomegaly, CTA chest showing cardiomegaly with enlargement in all 4 chambers, no PE identified. Patient seen and examined at bedside today, continues to deny chest pain and reports that she never had chest pain throughout this admission. She reports that her pain was in her left rib and radiate to right rib. She reports that the pain is since subsided and has not returned throughout the stay. Family also bedside and are unsure as to whether or not they would have to pursue [facility] for further evaluation. - Exam Vitals: Temp Pulse Resp BP Pulse Ox 98.5 F 76 17 122/69 95 04/16/18 07:08 04/16/18 07:08 04/16/18 07:08 04/16/18 07:08 04/16/18 07:08 Exam: PHYSICAL EXAMINATION: GENERAL: The patient is an elderly female who is in no distress, alert and oriented 3 HEENT: Head is normocephalic and atraumatic. Extraocular muscles are intact. Pupils are equal, round, and reactive to light and accommodation. NECK: Supple. No carotid bruits. No lymphadenopathy or thyromegaly. CHEST: Symmetrical expansion, no tenderness to palpation, adequate rise and fall LUNGS: Clear to auscultation B/L AP and L. HEART: Regular rate and rhythm, S1, S2 without murmurs rubs or gallops. ABDOMEN: Soft, nontender, and nondistended. Positive bowel sounds. No hepatosplenomegaly was noted. EXTREMITIES: Without any cyanosis, clubbing, rash, lesions or edema. NEUROLOGIC: Cranial nerves II through XII are grossly intact. SKIN: No ulceration or induration present. - Assessment and Plan (1) Chest pain Current Visit: Yes Status: Resolved Assessment and Plan: presented with atypical chest pain h/o extensive CAD including CABG x4 in 2000 has since resolved denies ever having chest pain; instead reporting rib pain continue cardiac meds cardio planning LHC in am; however, patient are not sure if they would pursue LHC will d/w cardio in a.m no changes on tele; continue tele continue ASA echo with decreased EF; concerning for ischemia; d/w family and patient; they are unclear regarding how aggressive they wish to be echo with the following results-- LVEF 20-25%. Moderately dilated left ventricle. Atypical septal motion consistent with post-operative status. Severe left ventricular diastolic dysfunction. Mild right ventricular hypokinesis. Mild to moderate biatrial enlargement. Moderate tricuspid regurgitation. Moderate pulmonary hypertension. (2) Anemia Current Visit: Yes Status: Acute Assessment and Plan: chronic anemia AVG H&H since 02/27 8-9 stable denies any bleeding; no GI bleeding coumadin held yesterday with concerns for bleeding FOB pending receipt hemodynamically stable without evidence of s/sx bleeding and with stable H&H as well as hemodynamic stability I believe it is safe to resume coumadin hx of a-fib; benefit outweighs risk at this time monitor for s/sx of bleeding recheck H&H in am (3) Atrial fibrillation Current Visit: Yes Status: Acute Assessment and Plan: continue coumadin; held yesterday check INR consider weight based lovenox until therapeutic currently SR rate in 70's continue BB for rate control (4) Cardiomyopathy Current Visit: Yes Status: Acute Assessment and Plan: CABG x4 in 2000 no chest pain at this time continue warfarin, BB and zocor d/w cardio benefit of adding ASA (5) Diabetes Current Visit: Yes Status: Acute Assessment and Plan: History of diabetes Continue NPH 70 3020 units subcutaneous twice a day Continue low sliding scale insulin and continue diabetic diet (6) Elevated INR Current Visit: Yes Status: Acute Assessment and Plan: Obtain INR now (7) Elevated troponin Current Visit: Yes Status: Acute Assessment and Plan: Etiology unclear Troponins adynamic this time however there are concerns for ischemic cause as echocardiogram exhibits decreased ejection fraction Plan for LHC in the morning per cardiology, see plan above (8) History of recent surgery Current Visit: Yes Status: Acute Assessment and Plan: Recently had left foot A mutation of the midfoot She was discharged 04/01/18 to [facility] for rehabilitation Wound VAC remains in place; podiatry managing outpatient During last admission was discharged with cefazolin 6-8 weeks, continue during this stay Continue daily INR checks and H&H monitoring (9) DVT prophylaxis Current Visit: Yes Status: Acute Assessment and Plan: check INR continue warfarin weight-based lovenox depending on INR - Time Spent with Patient Total time spent is greater than 50% in coordination of care (as documented) at patient's floor/unit and/or counseling patient: 25 - 35 minutes Plan of Care Discussed with: patient Internal Medicine: Result - Labs CBC & Chem 7: 04/15/18 19:48 04/15/18 04:45 Labs: Short CBC 04/15/18 Range/Units 19:48 WBC 7.0 (4.3-11.1) K/mcL Hgb 8.7 L (11.5-15.4) g/dL Hct 28.4 L (35.3-44.9) % Plt Count 428 H (140-400) K/mcL Cardiac Enzymes 04/15/18 Range/Units 09:37 Troponin I 0.05 H* (< 0.04) ng/mL - ABG Interpretation ABG results: PT/INR, D-dimer PT 18.5 Seconds (9.4-12.1) H 04/14/18 21:55 Consult Discharge Plan - Plan Referrals: Isabelle Joseph, [employer] [Primary Care Provider] - (1) Chest pain Qualifiers: Chest pain type: unspecified Qualified Code(s): R07.9 - Chest pain, unspecified (2) Anemia Qualifiers: Anemia type: iron deficiency Qualified Code(s): D50.9 - Iron deficiency anemia, unspecified (3) Atrial fibrillation Qualifiers: Atrial fibrillation type: unspecified Qualified Code(s): I48.91 - Unspecified atrial fibrillation (4) Cardiomyopathy Qualifiers: Cardiomyopathy type: ischemic Qualified Code(s): I25.5 - Ischemic cardiomyopathy (5) Diabetes Qualifiers: Diabetes mellitus type: type 2 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
--- NOTE | 2018-04-16 12:19 | Event Note ---
Date of Encounter: 04/16/18 Time of Encounter: 12:00 - Cardiology Event Note Spoke to family/patient at length. Admitted with chest pain (atypical), shortness of breath, mild troponin. Anemia stable. Podiatry at bedside, recent amputation wound dressing change with wound vac--unable to complete physical exam. Long discussion with patient and family. They are agreeable to proceed with stress test in AM as recommended by Dr. Gonzalez. Repeat TTE (see below) demonstrates reduced LVEF, 20-25% Of note, hx of CABG ~17 years ago, has not followed with Cardiology nor underwent ischemic evaluation since bypass surgery. Recent inpatient evaluation by Cardiology due to incidential finding of afib (coumadin) in the post-operative setting (left foot amputation); EF mildly reduced at that time, elected for medical therapy. Plan for nuclear stress test in AM; if significant reversible ischemia described, family will consider further invasive evaluation. Impressions Echocardiogram 04/16/18 16:07 Impressions: LVEF 20-25%. Moderately dilated left ventricle. Atypical septal motion consistent with post-operative status. Severe left ventricular diastolic dysfunction. Mild right ventricular hypokinesis. Mild to moderate biatrial enlargement. Moderate tricuspid regurgitation. Moderate pulmonary hypertension. Left Ventricular Wall Motion: Rest Echo Findings The apex, apical inferior, mid inferior, basal inferior, apical anterior, mid anterior, basal anterior, apical septal, mid inferior septal, basal inferior septal, apical lateral, mid anterior lateral, basal anterior lateral, mid anterior septal, mid inferior lateral, basal anterior septal and basal inferior lateral alston were hypokinetic.
--- NOTE | 2018-04-16 13:27 | Podiatry Consult Note ---
Date of Encounter: 04/16/18 Time of Encounter: 11:00 Assessment and Plan (1) Non-pressure chronic ulcer of other part of left foot with fat layer exposed Current visit: Yes Status: Acute Reviewed with patient and family again her condition, my findings and treatment options. Discussed the fibrotic tissue in the wound and that pending her heart workup can proceed with surgical preparation of wound bed for graft and placement of the graft and continued use of wound VAC. For now to allow the maceration around some of the incision site skin to resolve did pain with Betadine and applied calcium alginate. We again discussed that there are no guarantees of the limb can be salvaged or the functionality of the limb if salvaged. If she is able to heal the wound she will require some tendon transfers, achilles tendon lengthening or possibly an arthrodesis of the tibial talocalcaneal joints to stabilize the hindfoot. will plan for possible OR or Tuesday pending cardiac workup and plan. 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 History of Present Illness HPI: Ms. Kaplan is a 78 year old diabetic female familiar to me after undergoing [place] amputation of the left foot for a severe gas gangrene infection. She is currently in a nursing facility. She has family bedside. They all relate she was admitted Tuesday with chest pain. Say they have been using the wound vac at the nursing facility and that it does not look too bad. They say she is drinking protein drinks at the facility. She says she has been staying off her left foot. Past Med Surg Social Fam HX - Past Medical History Medical history: diabetes Psychiatric history: no psych history - Past Surgical History Additional surgical history: left foot amputee - Social History Smoking Status: Never smoker Alcohol use: none Drug use: none - Family History Father Adopted: [place]: SNEHAL Family Member Ethnicity: Non- Living Status: Age at : 65 Hx Family Cardiac Disorders: No Hx Family Respiratory Disorders: No Hx Family Cancer: Yes (COLON) Hx Family GI Disorders: Yes Hx Family Genitourinary Disorders: No Hx Family Endocrine Disorder: Yes (DM) Hx Family Musculoskeletal Disorders: No Hx Family Neuromuscular Disorders: No Hx Family Neurologic Disorders: No Hx Family HEENT Disorders: No Hx Family Autoimmune Disorders: No Hx Family Reproductive Disorders: No Hx Family Psychosocial Disorders: No Hx Family Medical Disorders: No Medications and Allergies Acetaminophen [Tylenol] 650 mg PO Q4H PRN 04/15/18 [History] Cefazolin Sodium/D5w [Cefazolin 2 G/50 ml-D5w Bag] 1 vial IV DAILY 04/15/18 [History] Dorzolamide/Timolol/Pf [Dorzolamide-Timolol 2%-0.5%] 1 drop OP BID 04/15/18 [History] Ergocalciferol (VITAMIN D2) [Drisdol (50,000 Unit)] 50,000 unit PO MO 04/15/18 [History] Insulin NPH Hum/Reg Insulin Hm [Humulin 70-30 Vial] 20 unit SQ BID 04/15/18 [History] Metoprolol [Lopressor] 12.5 mg PO BID 04/15/18 [History] Nitroglycerin [Nitrostat] 0.4 mg SL PRN PRN 04/15/18 [History] Ondansetron HCl [Zofran] 4 mg PO Q4H PRN 04/15/18 [History] Pantoprazole Sodium [Protonix] 40 mg PO DAILY 04/15/18 [History] Simvastatin [Zocor] 40 mg PO DAILY 04/15/18 [History] Sucralfate [Carafate] 1 gm PO QIDAC 04/15/18 [History] Warfarin perPT [Coumadin perPT] 2 mg PO DAILY 04/15/18 [History] Allergy/AdvReac Type Severity Reaction Status Date / Time lidocaine Allergy Anaphylaxis Verified 04/14/18 21:19 All Systems Reviewed: The remainder of the systems were reviewed and are negative - Constitutional Constitutional: no fever(s) - Cardiovascular Cardiovascular: chest pain - Respiratory Respiratory: no cough - Musculoskeletal Musculoskeletal: numbness, other (partial left foot amputation.) Physical Exam - Constitutional Vitals: Temp Pulse Resp BP Pulse Ox 98.9 F 73 16 141/74 94 04/16/18 12:04 04/16/18 12:04 04/16/18 12:04 04/16/18 12:04 04/16/18 12:04 Exam: sutures are intact. mild maceration laterally on incision site. wound base fibrogranular approximately 50% fibrotic and 50% granular. no evidence of necrosis in or around the wound. no erythema, fluctuance or purulence. equinus contracture left ankle. left ankle wound with some yellow sloughing tissue, no fluctuance. no purulence expressed. foot is warm to touch. Results - Labs Result Diagrams: 04/15/18 19:48 04/15/18 04:45 Labs: Abnormal lab results RBC 3.12 M/mcL (3.82-4.97) L 04/15/18 19:48 Hgb 8.7 g/dL (11.5-15.4) L 04/15/18 19:48 Hct 28.4 % (35.3-44.9) L 04/15/18 19:48 MCH 27.9 pg (28.0-33.3) L 04/15/18 19:48 MCHC 30.6 g/dL (31.6-35.5) L 04/15/18 19:48 RDW 16.2 % (11.5-14.5) H 04/15/18 19:48 Plt Count 428 K/mcL (140-400) H 04/15/18 19:48 PT 18.5 Seconds (9.4-12.1) H 04/14/18 21:55 Chloride 108 mEq/L (98-107) H 04/15/18 04:45 BUN 25 mg/dL (8-23) H 04/15/18 04:45 Est GFR (Non-Af Amer) 58 (> 60) L 04/15/18 04:45 BUN/Creatinine Ratio 27 (6-26) H 04/15/18 04:45 Glucose 64 mg/dL (70-105) L 04/15/18 04:45 POC Glucose 191 mg/dL (70-99) H 04/15/18 23:50 Calcium 8.3 mg/dL (8.6-10.3) L 04/15/18 04:45 Troponin I 0.05 ng/mL (< 0.04) H* 04/15/18 09:37 H & H 04/15/18 Range/Units 19:48 Hgb 8.7 L (11.5-15.4) g/dL Hct 28.4 L (35.3-44.9) % All other labs normal. Consult Discharge Plan - Plan Referrals: Isabelle Joseph, [employer] [Primary Care Provider] -
[2018-04-16] MEDS: Aspirin 81 MG TAB.CHEW PO SCH (13:50)
[2018-04-16] MEDS ORDERED: Naloxone 0.4 MG/ML INJ IVP PRN (16:18)
[2018-04-16 16:37] LABS: INR 1.8; Prothrombin Time 20.2 Seconds (9.4-12.1)
[2018-04-16] MEDS: OXYCODONE Oral CONC 10 MG/0.5 ML ORAL.SYG SL PRN (17:50)
[2018-04-16] MEDS ORDERED: Warfarin perPT PO PRN (18:00)
[2018-04-16] MEDS ORDERED: *HR* Warfarin 2 MG TABLET PO ONE (19:00)
[2018-04-16] MEDS: *HR* Enoxaparin 100 MG/ML SYRINGE SQ SCH (20:13)
[2018-04-17] MEDS ORDERED: Regadenoson 0.4 MG/5 ML SYRINGE IVP ONE (05:52)
[2018-04-17 06:00] LABS: Basophils # 0.1 K/mcL (0.0-0.2); Basophils % 0.7 %; Eosinophils # 0.6 K/mcL (0.0-0.6); Hematocrit 26.3 % (35.3-44.9); Immature Granulocytes % 0.4 % (0-4); Lymphocytes # 2.1 K/mcL (0.6-4.6); Lymphocytes % 25.3 %; Mean Corpuscular HGB Conc 30.4 g/dL (31.6-35.5); Mean Corpuscular Hemoglobin 27.9 pg (28.0-33.3); Mean Corpuscular Volume 91.6 fL (83.0-100.0); Mean Platelet Volume 12.3 fL (9.4-12.4); Monocytes # 1.1 K/mcL (0.0-1.3); Monocytes % 13.5 %; Neutrophils # 4.5 K/mcL (1.6-8.9); Platelet Count 421 K/mcL (140-400); Red Blood Count 2.87 M/mcL (3.82-4.97); Red Cell Distribution Width 16.4 % (11.5-14.5); Segmented Neutrophils % 53.1 %
[2018-04-17 06:08] LABS: INR 1.8; Prothrombin Time 20.4 Seconds (9.4-12.1)
[2018-04-17] MEDS: Insulin LISPRO 300 UNITS/3 ML VIAL SQ SCH ×3 (06:10→17:38)
[2018-04-17 06:15] LABS: Calcium 8.4 mg/dL (8.6-10.3); Potassium 3.9 mEq/L (3.5-5.1)
[2018-04-17] MEDS: Pantoprazole 40 MG VIAL IVP SCH ×2 (06:16→17:35)
[2018-04-17] MEDS: *HR* Enoxaparin 100 MG/ML SYRINGE SQ SCH (06:16)
[2018-04-17] MEDS: Sucralfate 1 GM TABLET PO SCH ×2 (06:16→15:50)
[2018-04-17] MEDS: ceFAZolin 1,000 MG in Water for inj. (sterile) 20 ML 10 ML IVP SCH ×2 (10:00→21:33)
[2018-04-17] MEDS: Metoprolol XL (24 HR) Succ 25 MG TAB.ER.24H PO SCH (10:00)
[2018-04-17] MEDS: Cholecalciferol (D-3) 1,000 UNIT TABLET PO SCH (10:00)
[2018-04-17] MEDS: Insulin NPH/REG 70/30 100 UNIT/ML (x5UNIT) SQ SCH ×2 (10:01→21:40)
[2018-04-17] MEDS: Aspirin 81 MG TAB.CHEW PO SCH (10:01)
[2018-04-17] MEDS: Dorzolamide/Timolol OPTH 10 ML BOTTLE RIGHT EYE SCH ×2 (10:02→21:33)
--- NOTE | 2018-04-17 11:07 | Internal Med Progress Note ---
Hospitalist Progress Note - Encounter Date of Encounter: 04/17/18 Time of Encounter: 10:56 - Subjective Interval History: 78-year-old female with an extensive history of CAD including quadruple bypass in 2000. Presenting from an [facility] with left-sided chest pain radiation to the right which gradually worsened throughout the day of pre sentation. Additionally, she was found to be dyspneic on arrival. Troponins were mildly elevated at 0.04, 0.05 and then 0.04. Echocardiogram 04/16/18 showing diminished ejection fraction (EF 20-25%) when compared to EF from prior recent echo. This morning patient reporting chest discomfort which is described as mild and chronic. - Exam Vitals: Temp Pulse Resp BP Pulse Ox 98.1 F 66 16 135/79 100 04/17/18 06:59 04/17/18 06:59 04/17/18 06:59 04/17/18 06:59 04/17/18 06:59 Exam: PHYSICAL EXAMINATION: GENERAL: The patient is an elderly female who is in no distress, alert and oriented 3 HEENT: Head is normocephalic and atraumatic. Extraocular muscles are intact. Pupils are equal, round, and reactive to light and accommodation. NECK: Supple. No carotid bruits. No lymphadenopathy or thyromegaly. CHEST: Symmetrical expansion, no tenderness to palpation, adequate rise and fall LUNGS: Clear to auscultation B/L AP and L. HEART: RRR, S1, S2 without murmurs rubs or gallops. ABDOMEN: Soft, nontender, and nondistended. Positive bowel sounds. No hepatosplenomegaly was noted. EXTREMITIES: Without any cyanosis, clubbing, rash, lesions or edema. Partial left foot amputation with wound VAC in place. Wound base with granulation and fibrotic tissue without evidence of necrosis. No erythema found around the wound margins. Pressure ulcer of left ankle wound which was present prior to arrival. Yellow slough tissue in place without fluctuance or purulent NEUROLOGIC: Cranial nerves II through XII are grossly intact. SKIN: No ulceration or induration present. - Assessment and Plan (1) Chest pain Current Visit: Yes Status: Resolved Assessment and Plan: presented with atypical chest pain h/o extensive CAD including CABG x4 in 2000 denies ever having chest pain; instead reporting rib pain continue cardiac meds cardio planning stressin am no changes on tele; continue tele continue ASA echo with decreased EF; concerning for ischemia; d/w family and patient; they are unclear regarding how aggressive they wish to be echo with the following results-- LVEF 20-25%. Moderately dilated left ventricle. Atypical septal motion consistent with post-operative status. Severe left ventricular diastolic dysfunction. Mild right ventricular hypokinesis. Mild to moderate biatrial enlargement. Moderate tricuspid regurgitation. Moderate pulmonary hypertension. It should be noted that during registration the patient was reregistered under a new medical record ID this is made difficult to find a past history. Medical records working on reconciling both charts 04/17/18--Continues to have some mild chest tightness which she reports as chronic. She does not appear to be in any distress. No events on tele overnight. Underwent day #1 of 2-day stress. NPO after midnight for day #2 stress. (2) Elevated troponin Current Visit: Yes Status: Acute Assessment and Plan: Etiology unclear Troponins adynamic this time however there are concerns for ischemic cause as echocardiogram exhibits decreased ejection fraction Plan for 2-day stress (3) Diabetes Current Visit: Yes Status: Acute Assessment and Plan: History of diabetes Continue NPH 70/30 20 units subcutaneous twice a day Continue low sliding scale insulin and continue diabetic diet (4) Anemia Current Visit: Yes Status: Acute Assessment and Plan: chronic anemia AVG H&H since 02/27 8-9 H&H 8.0 this morning; recheck in a.m. denies any bleeding; no GI bleeding Continue coumadin for now FOB pending receipt hemodynamically stable hx of a-fib; benefit outweighs risk at this time monitor for s/sx of bleeding (5) Elevated INR Current Visit: Yes Status: Acute (6) History of recent surgery Current Visit: Yes Status: Acute Assessment and Plan: 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 She was discharged 04/03/18 to [facility] for rehabilitation Wound VAC remains in place; podiatry managing to have graft placed this stat and continue with wound vac; please see podiatry note During last admission was discharged with cefazolin 6-8 weeks, continue during this stay; duration of treatment TBD clinically but 6-weeks duration at 05/18/18 Dressing changes per podiatry (7) Atrial fibrillation Current Visit: Yes Status: Acute Assessment and Plan: continue coumadin; held yesterday INR 1.8 Continue weight based lovenox until therapeutic currently SR rate in 60's continue BB for rate control (8) Cardiomyopathy Current Visit: Yes Status: Acute Assessment and Plan: CABG x4 in 2000 no chest pain at this time continue warfarin, BB and zocor d/w cardio benefit of adding ASA 2-day stress pending cardio following; thank you, appreciate recommendations (9) Non-pressure chronic ulcer of other part of left foot with fat layer exposed Current Visit: Yes Status: Acute Assessment and Plan: Recent admission with bacteremia, 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 Ayers planning surgical preparation of wound bed for graft placement and continued use of wound VAC (10) DVT prophylaxis Current Visit: Yes Status: Acute Assessment and Plan: weight based lovenox, bridge to coumadin INR subtherapeutic - Time Spent with Patient Total time spent is greater than 50% in coordination of care (as documented) at patient's floor/unit and/or counseling patient: less than 15 minutes Plan of Care Discussed with: patient Internal Medicine: Result - Labs CBC & Chem 7: 04/17/18 05:24 04/17/18 05:24 Labs: Short CBC 04/17/18 Range/Units 05:24 WBC 8.5 (4.3-11.1) K/mcL Hgb 8.0 L (11.5-15.4) g/dL Hct 26.3 L (35.3-44.9) % Plt Count 421 H (140-400) K/mcL Neutrophils # 4.5 (1.6-8.9) K/mcL BMP 04/17/18 05:24 Sodium 139 Potassium 3.9 Chloride 106 Carbon Dioxide 27 BUN 27 H Creatinine 1.21 H Glucose 59 L Calcium 8.4 L - ABG Interpretation ABG results: PT/INR, D-dimer PT 20.4 Seconds (9.4-12.1) H 04/17/18 05:24 - Impressions Impressions Chest X-Ray 04/14/18 21:26 IMPRESSION: Cardiomegaly, otherwise, no acute abnormality seen in the chest D/ / Cameron King MD / Cameron King MD Interpreting Provider: Cameron King MD Chest CTA 04/14/18 22:10 IMPRESSION: No CT evidence of pulmonary embolism. Some of the subsegmental pulmonary arteries in the lower lobes are not evaluated. Four-chamber cardiac enlargement. Small right and trace left pleural effusions. Bibasilar airspace disease likely represents atelectasis. Pneumonia cannot be excluded. Ovoid 2.3 cm radiodensity within the mid to lower esophagus which could represent retained tablet/pill. The upper esophagus is mildly patulous with food debris. Several left axillary lymph nodes, increased in number. Questionable asymmetric density within the left breast. Correlation with mammographic studies is recommended. D/ / Stacy Ivey Cha, MD / Stacy Ivey Cha, MD Interpreting Provider: Stacy Ivey Cha, MD Echocardiogram 04/16/18 16:07 Impressions: LVEF 20-25%. Moderately dilated left ventricle. Atypical septal motion consistent with post-operative status. Severe left ventricular diastolic dysfunction. Mild right ventricular hypokinesis. Mild to moderate biatrial enlargement. Moderate tricuspid regurgitation. Moderate pulmonary hypertension. Left Ventricular Wall Motion: Rest Echo Findings The apex, apical inferior, mid inferior, basal inferior, apical anterior, mid anterior, basal anterior, apical septal, mid inferior septal, basal inferior septal, apical lateral, mid anterior lateral, basal anterior lateral, mid anterior septal, mid inferior lateral, basal anterior septal and basal inferior lateral alston were hypokinetic. Findings: Study Quality * Technically adequate exam. ECG Findings * Normal sinus rhythm. Left Ventricle * LVEF 20-25%. * Moderately dilated left ventricle. * Severe global left ventricular systolic dysfunction. * Atypical septal motion consistent with post-operative status. * Definity echo contrast was used. * Severe left ventricular diastolic dysfunction. * There is no LV thrombus. Right Ventricle * Mild right ventricular hypokinesis. * Mildly dilated right ventricle. Left Atrium * Mildly dilated left atrium. Interatrial Septum * No evidence of PFO by color Doppler. Aortic Valve * Trileaflet aortic valve. * Mildly calcified aortic valve leaflets. * No aortic regurgitation. * No aortic stenosis. Mitral Valve * Moderate mitral annular calcification * Trace mitral regurgitation. * No mitral stenosis. Tricuspid Valve * Moderate tricuspid regurgitation. * Moderate pulmonary hypertension. * Estimated RVSP is 39 mmHg. * Estimated RA pressure is 10 mmHg. * Normal tricuspid valve structure. * No tricuspid stenosis. Pulmonic Valve * Normal pulmonic valve structure. * No pulmonic regurgitation. Aorta * Normally sized aortic root. Pericardium * The pericardium appears normal. Right Atrium * Mildly dilated right atrium. IVC * The IVC is dilated. 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
--- NOTE | 2018-04-17 11:49 | Cardiology Progress Note ---
Addendum entered and electronically signed by Hardeep Johnson DO 04/17/18 12:53: I have personally performed a face to face evaluation on this patient. I have r eviewed and agree with the care plan. History and Exam by me shows: Agree with findings, impressions, and plan as outlined below. Second portion of stress test to be completed tomorrow. Further recommendations to follow. Thanks, Hardeep Johnson DO, [facility] Original Note: Date of Encounter: 04/17/18 Time of Encounter: 11:49 Assessment and Plan (1) Cardiomyopathy Current Visit: Yes Status: Acute Long discussion with patient and family. They are agreeable to proceed with stress test as recommended by Dr. Gonzalez. Repeat TTE demonstrates reduced LVEF, 20-25%. Of note, hx of CABG ~17 years ago, has not followed with Cardiology nor underwent ischemic evaluation since bypass surgery. Recent inpatient evaluation by Cardiology due to incidential finding of afib (coumadin) in the post-operative setting (left foot amputation); EF mildly reduced at that time, elected for medical therapy. Continue BB and ACEi. Plan for nuclear stress test--2 day, first portion completed today; if significant reversible ischemia described, family will consider further invasive evaluation. Qualifiers: Cardiomyopathy type: ischemic Qualified Code(s): I25.5 - Ischemic cardiomyopathy (2) Atypical chest pain Current Visit: Yes Status: Acute Hx CABG with no recent ischemic eval. Patient is currently CP-free.Troponin is flat. EKG shows normal acute ST-T changes Continue aspirin 81 mg daily, switch metoprolol titrate to metoprolol succinate 50 mg daily. Commence lisinopril 2.5 mg daily. Continue moderate dose statin. First portion of 2 day stress test obtained today. (3) Atrial fibrillation Current Visit: Yes Status: Acute Continue BB. CHADSVASC2 6, on Coumadin for AC. INR 1.8 today. Qualifiers: Atrial fibrillation type: unspecified Qualified Code(s): I48.91 - Unspecified atrial fibrillation (4) CAD (coronary artery disease) Current Visit: Yes Status: Chronic Hx CABG 17 years ago. ASA, Statin, BB, ACEi. Qualifiers: Coronary Disease-Associated Artery/Lesion type: bypass graft [place] vs. transplanted heart: [place] heart Associated angina: without angina Qualified Code(s): I25.810 - Atherosclerosis of coronary artery bypass graft(s) without angina pectoris Discussion w patient/family: The assessment and plan as outlined above was discussed with the patient and/or family members who expressed understanding and agreement. All questions were answered. Thank you for involving us in the care of your patient. Please call with any questions. I will discuss all the above with Dr. Johnson and make changes as necessary. Subjective Principal diagnosis: CMP, atypical CP Interval history: No acute complaints this AM. Finished 1st portion of 2 day stress test. Objective Vital Signs, Last 4 Hours Temp Pulse Resp BP Pulse Ox 04/17/18 10:57 98.2 F 65 16 132/78 100 Vital Signs Temp Pulse Resp BP Pulse Ox 04/17/18 10:57 98.2 F 65 16 132/78 100 04/17/18 06:59 98.1 F 66 16 135/79 100 04/17/18 04:08 98.6 F 66 16 103/61 97 04/16/18 23:43 99.1 F 66 16 100/62 94 04/16/18 18:55 99.8 F H 79 16 132/74 94 04/16/18 15:51 99.8 F H 75 16 126/70 94 04/16/18 12:04 98.9 F 73 16 141/74 94 Intake and Output 04/16/18 04/17/18 04/17/18 23:59 07:59 15:59 Intake Total Balance Intake: IV Fluids Ancef 1,000 MG In Water for inj . (sterile) 10 ML @ 200 mls/hr IVP Q8HR [facility] Rx#:[id number] Other: Meal NPO Weight 98.4 kg Blood Glucose* 88 67 Patient Weight 04/17/18 23:59 Weight 98.4 kg General: Conversant, No Apparent Distress HEENT: Atraumatic, Normocephaly, Mucus Membranes Moist Neck: No JVD, Normal carotid pulses Cardiac: Reg Rate and Rhythm, Normal S1 and S2, No Murmur Lungs: Normal Breath Sounds, No Wheeze, Rales, Rhonchi Neuro: Alert and responsive, No focal deficits noted Abdomen: Soft, Non-Tender Skin: No rashes noted on visualized skin Musculoskeletal: No Chest Wall Tenderness Extremities: No Clubbing, No Cyanosis Results 04/17/18 05:24 04/17/18 05:24 Lab Results 04/16/18 04/17/18 04/17/18 15:23 05:24 05:24 WBC 8.5 Hgb 8.0 L Hct 26.3 L Plt Count 421 H INR 1.8 Sodium 139 Potassium 3.9 Chloride 106 Carbon Dioxide 27 BUN 27 H Creatinine 1.21 H Glucose 59 L Calcium 8.4 L 04/17/18 05:24 WBC Hgb Hct Plt Count INR 1.8 Sodium Potassium Chloride Carbon Dioxide BUN Creatinine Glucose Calcium Short CBC 04/17/18 Range/Units 05:24 WBC 8.5 (4.3-11.1) K/mcL Hgb 8.0 L (11.5-15.4) g/dL Hct 26.3 L (35.3-44.9) % Plt Count 421 H (140-400) K/mcL Neutrophils # 4.5 (1.6-8.9) K/mcL BMP 04/17/18 Range/Units 05:24 Sodium 139 (136-145) mEq/L Potassium 3.9 (3.5-5.1) mEq/L Chloride 106 (98-107) mEq/L Carbon Dioxide 27 (23-29) mEq/L BUN 27 H (8-23) mg/dL Creatinine 1.21 H (0.60-1.20) mg/dL Glucose 59 L (70-105) mg/dL Calcium 8.4 L (8.6-10.3) mg/dL Impressions Chest X-Ray 04/14/18 21:26 IMPRESSION: Cardiomegaly, otherwise, no acute abnormality seen in the chest D/ / Cameron King MD / Cameron King MD Interpreting Provider: Cameron King MD Chest CTA 04/14/18 22:10 IMPRESSION: No CT evidence of pulmonary embolism. Some of the subsegmental pulmonary arteries in the lower lobes are not evaluated. Four-chamber cardiac enlargement. Small right and trace left pleural effusions. Bibasilar airspace disease likely represents atelectasis. Pneumonia cannot be excluded. Ovoid 2.3 cm radiodensity within the mid to lower esophagus which could represent retained tablet/pill. The upper esophagus is mildly patulous with food debris. Several left axillary lymph nodes, increased in number. Questionable asymmetric density within the left breast. Correlation with mammographic studies is recommended. D/ / Stacy Ivey Cha, MD / Stacy Ivey Cha, MD Interpreting Provider: Stacy Ivey Cha, MD Echocardiogram 04/16/18 16:07 Impressions: LVEF 20-25%. Moderately dilated left ventricle. Atypical septal motion consistent with post-operative status. Severe left ventricular diastolic dysfunction. Mild right ventricular hypokinesis. Mild to moderate biatrial enlargement. Moderate tricuspid regurgitation. Moderate pulmonary hypertension. Left Ventricular Wall Motion: Rest Echo Findings The apex, apical inferior, mid inferior, basal inferior, apical anterior, mid anterior, basal anterior, apical septal, mid inferior septal, basal inferior septal, apical lateral, mid anterior lateral, basal anterior lateral, mid anterior septal, mid inferior lateral, basal anterior septal and basal inferior lateral alston were hypokinetic. Findings: Study Quality * Technically adequate exam. ECG Findings * Normal sinus rhythm. Left Ventricle * LVEF 20-25%. * Moderately dilated left ventricle. * Severe global left ventricular systolic dysfunction. * Atypical septal motion consistent with post-operative status. * Definity echo contrast was used. * Severe left ventricular diastolic dysfunction. * There is no LV thrombus. Right Ventricle * Mild right ventricular hypokinesis. * Mildly dilated right ventricle. Left Atrium * Mildly dilated left atrium. Interatrial Septum * No evidence of PFO by color Doppler. Aortic Valve * Trileaflet aortic valve. * Mildly calcified aortic valve leaflets. * No aortic regurgitation. * No aortic stenosis. Mitral Valve * Moderate mitral annular calcification * Trace mitral regurgitation. * No mitral stenosis. Tricuspid Valve * Moderate tricuspid regurgitation. * Moderate pulmonary hypertension. * Estimated RVSP is 39 mmHg. * Estimated RA pressure is 10 mmHg. * Normal tricuspid valve structure. * No tricuspid stenosis. Pulmonic Valve * Normal pulmonic valve structure. * No pulmonic regurgitation. Aorta * Normally sized aortic root. Pericardium * The pericardium appears normal. Right Atrium * Mildly dilated right atrium. IVC * The IVC is dilated. Active Medications Aspirin (Aspirin) 81 mg PO DAILY [facility] Stop: 10/16/18 12:16 Last Admin: 04/17/18 10:01 Dose: 81 mg Dextrose/Water (Dextrose 50% (Syg)) 25 ml IVP AD PRN PRN Reason: Hypoglycemia Stop: 10/15/18 04:26 Dorzolamide/Timolol (Cosopt) 1 drop RIGHT EYE BID [facility] Stop: 10/15/18 21:01 Last Admin: 04/17/18 10:02 Dose: 1 drop Enoxaparin Sodium (Lovenox) 100 mg 1 mg/kg (100 mg) SQ Q24H [facility]; Protocol Stop: 10/18/18 06:01 Glucagon (Glucagen) 1 mg IM ONCE PRN PRN Reason: Hypoglycemia Stop: 10/15/18 04:26 Glucose (Gluctose) 15 gm PO ONCE PRN PRN Reason: Hypoglycemia Stop: 10/15/18 04:26 Glucose (Gluctose) 30 gm PO ONCE PRN PRN Reason: Hypoglycemia Stop: 10/15/18 04:26 Dextrose (Dextrose 5%) 1,000 mls @ 100 mls/hr IVC .Q10H PRN PRN Reason: HYPOGLYCEMIA Stop: 10/15/18 04:26 Cefazolin Sodium 1,000 mg/ (Sterile Water) 10 mls @ 200 mls/hr IVP Q12H [facility]; Protocol Stop: 10/17/18 20:01 Insulin Human Lispro (Humalog) 0 units SQ Q6HR [facility]; Protocol Stop: 10/15/18 06:01 Last Admin: 04/17/18 06:10 Dose: Not Given Insulin Isophane/Insulin Regular (Humulin 70/30 Vial) 20 unit SQ BID [facility] Stop: 10/15/18 21:01 Last Admin: 04/17/18 10:01 Dose: Not Given Lisinopril (Zestril) 2.5 mg PO DAILY [facility]; Protocol Stop: 10/16/18 12:31 Last Admin: 04/17/18 10:01 Dose: 2.5 mg Metoprolol Succinate (Toprol Xl) 25 mg PO DAILY [facility] Stop: 10/17/18 09:01 Last Admin: 04/17/18 10:00 Dose: 25 mg Naloxone HCl (Narcan) 0.4 mg IVP Q2MIN PRN PRN Reason: SEE COMMENTS Stop: 10/16/18 16:19 Nitroglycerin (Nitroglycerin) 0.4 mg SL Q5MIN PRN PRN Reason: Chest Pain Stop: 10/14/18 21:49 Ondansetron HCl (Zofran Odt) 4 mg PO Q8HR PRN PRN Reason: Nausea Oxycodone HCl (Oxycodone Oral Conc) 5 mg SL Q12H PRN; Protocol PRN Reason: Severe Pain Stop: 10/15/18 11:18 Last Admin: 04/16/18 17:50 Dose: 5 mg Pantoprazole Sodium (Protonix) 40 mg IVP Q12HR [facility] Stop: 10/15/18 06:31 Last Admin: 04/17/18 06:16 Dose: 40 mg Simvastatin (Zocor) 40 mg PO DAILY [facility]; Protocol Stop: 10/16/18 09:01 Last Admin: 04/17/18 10:01 Dose: 40 mg Sucralfate (Carafate) 1 gm PO 0730,1630 [facility] Stop: 10/15/18 07:31 Last Admin: 04/17/18 06:16 Dose: 1 gm Vitamin D (Vitamin D) 500 unit PO DAILY [facility] Stop: 10/15/18 09:01 Last Admin: 04/17/18 10:00 Dose: 500 unit Warfarin Sodium (Coumadin Perpt) 1 each PO DAILY@1800 PRN PRN Reason: SEE COMMENTS Stop: 10/16/18 18:01 Warfarin Sodium (Coumadin) 2.5 mg PO 1800 ONE Stop: 04/17/18 18:01 - Imaging and Cardiology Echo: report reviewed - EKG Interpretation EKG results cardiology: other (12 hr tele AVG HR 66) Consult Discharge Plan - Plan Referrals: Isabelle Joseph, DIE MAKER APPRENTICE [Primary Care Provider] -
[2018-04-17] MEDS: Nystatin Cream 15 GM TUBE TP SCH ×2 (15:50→21:35)
--- NOTE | 2018-04-17 16:25 | Podiatry Progress Note ---
Date of Encounter: 04/18/18 Time of Encounter: 15:30 - Assessment and Plan (1) Non-pressure chronic ulcer of other part of left foot with fat layer exposed Current Visit: Yes Status: Acute Removed old dressing with moderate amount of yellow/green drainage. Slough noted. Cleansed with 0.9 normal saline. Applied max-orb, covered with 4 x 4 dry gauze, Kerlix. Ulcer noted to left malleolus, edges purple in color. Applied max-orb, covered with 4 x 4 dry gauze, and Kerlix. Plan for surgery after cleared with cardiology. Patient planned to have stress test tomorrow. We will try for surgery Tuesday/Tuesday. Subjective Principal diagnosis: CMP, atypical CP Interval history: Patient sitting in bed. Alert and oriented 3. at bedside. Objective - Vital Signs Vital Signs: Vital Signs Temp Pulse Resp BP Pulse Ox 04/17/18 16:17 98.2 F 75 16 145/80 100 04/17/18 10:57 98.2 F 65 16 132/78 100 04/17/18 06:59 98.1 F 66 16 135/79 100 04/17/18 04:08 98.6 F 66 16 103/61 97 04/16/18 23:43 99.1 F 66 16 100/62 94 04/16/18 18:55 99.8 F H 79 16 132/74 94 Intake and Output 04/17/18 04/17/18 04/17/18 07:59 15:59 23:59 Intake Total 250 / 250 Balance 250 / 250 Intake: IV Fluids Ancef 1,000 MG In Water for inj . (sterile) 10 ML @ 200 mls/hr IVP Q8HR [facility] Rx#:[id number] Oral 240 / 240 Other: Meal Lunch Percent of Meal Consumed 100% Weight 98.4 kg Blood Glucose* 67 83 Patient Weight 04/17/18 23:59 Weight 98.4 kg - Exam Exam: Constitiutional: Alert and oriented x 3. Vascular: 2/4 DP/PT right, 2/4 popliteal left, CFT <3 sec to all digits right, warm to warm from tibia to toes right, left warm from tibia to Neurologic: abnormal sensation LLE Dermatologic: Wound bed with slough noted LLE Musculoskeletal: left charcot amputation - Lab Result Diagrams: 04/18/18 07:29 04/18/18 07:29 Labs: Abnormal lab results RBC 2.87 M/mcL (3.82-4.97) L 04/17/18 05:24 Hgb 8.0 g/dL (11.5-15.4) L 04/17/18 05:24 Hct 26.3 % (35.3-44.9) L 04/17/18 05:24 MCH 27.9 pg (28.0-33.3) L 04/17/18 05:24 MCHC 30.4 g/dL (31.6-35.5) L 04/17/18 05:24 RDW 16.4 % (11.5-14.5) H 04/17/18 05:24 Plt Count 421 K/mcL (140-400) H 04/17/18 05:24 PT 20.4 Seconds (9.4-12.1) H 04/17/18 05:24 BUN 27 mg/dL (8-23) H 04/17/18 05:24 Creatinine 1.21 mg/dL (0.60-1.20) H 04/17/18 05:24 Est GFR ( Amer) 52 (> 60) L 04/17/18 05:24 Est GFR (Non-Af Amer) 43 (> 60) L 04/17/18 05:24 Glucose 59 mg/dL (70-105) L 04/17/18 05:24 POC Glucose 185 mg/dL (70-99) H 04/16/18 17:05 Calcium 8.4 mg/dL (8.6-10.3) L 04/17/18 05:24 Troponin I 0.05 ng/mL (< 0.04) H* 04/15/18 09:37 Microbiology, Last 48 Hours 04/16/18 20:25 Blood Culture - Preliminary Peripheral Venipuncture Culture is incubating and being continuously monitored for growth. Final report to follow. 04/16/18 20:25 Blood Culture - Preliminary Peripheral Venipuncture Culture is incubating and being continuously monitored for growth. Final report to follow. Consult Discharge Plan - Plan Referrals: Isabelle Joseph, PEDIATRIC PSYCHIATRIST [Primary Care Provider] -
[2018-04-17] MEDS ORDERED: *HR* Warfarin 2.5 MG TABLET PO ONE (18:00)
[2018-04-18] MEDS: Insulin LISPRO 300 UNITS/3 ML VIAL SQ SCH ×4 (00:51→17:20)
--- NOTE | 2018-04-18 03:35 | Anesthesia Evaluation PreOp ---
<Kacie Jean-Baptiste - Last Filed: 04/18/18 03:33> Date of Encounter: 04/18/18 - Past History Cardiac History: CT, CHF (Severe LV dysfuntion with EF 20-25% per TTE 04-16-18 (EF similar to SUDEEP but reduced in comparison to TTE )), HTN, Hyperlipidemia, Arrhythmia (new onset A fib this admission), Cardiac Surgery (CABG 2000), Other (PAD, jessica LE ishemia ... As of 04-17-18, patient still needs second portion of her stress test completed in order to have cardiac clearance for surgery. This second portion of the stress test will be completed sometime 04-18-18 (and cardiology will update their recommendations at that point). 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: Other (diabetic neuropathy) Other Medical History: Renal (ckd stage 2), Bleeding (EGD for GI bleed), Diabetes Type II (uses insulin) Alcohol Use: none Drug use: none Medications and Allergies Dorzolamide/Timolol [Cosopt] 1 drop OP BID 02/23/17 [History] Simvastatin [Zocor] 40 mg PO HS 02/23/17 [History] Ergocalciferol (VITAMIN D2) [Vitamin D2] 50,000 unit PO QWEEK 03/25/18 [History] Cefazolin Sodium/D5w [Cefazolin 2 G/50 ml-D5w Bag] 2 gm IV Q8HR 49 Days #147 piggyback 04/03/18 [Rx] Insulin LISPRO [HumaLOG] 0 units SQ HS vial 04/03/18 [Rx] Insulin LISPRO [HumaLOG] 0 units SQ TIDAC vial 04/03/18 [Rx] Insulin NPH/REG 70/30 (HUMAN) [Humulin 70/30 Vial] 20 unit SQ BIDAC w1titnx 04/03/18 [Rx] Metoprolol [Lopressor] 12.5 mg PO BID 30 Days #60 tablet 04/03/18 [Rx] Pantoprazole Sodium [Protonix] 40 mg PO DAILY 30 Days #30 tab 04/03/18 [Rx] Sucralfate [Carafate] 1 gm PO 0730,1630 30 Days #60 tablet 04/03/18 [Rx] Acetaminophen [Tylenol] 650 mg PO Q4H PRN 04/15/18 [History] Cefazolin Sodium/D5w [Cefazolin 2 G/50 ml-D5w Bag] 1 vial IV DAILY 04/15/18 [History] Dorzolamide/Timolol/Pf [Dorzolamide-Timolol 2%-0.5%] 1 drop OP BID 04/15/18 [History] Ergocalciferol (VITAMIN D2) [Drisdol (50,000 Unit)] 50,000 unit PO MO 04/15/18 [ History] Insulin NPH Hum/Reg Insulin Hm [Humulin 70-30 Vial] 20 unit SQ BID 04/15/18 [History] Metoprolol [Lopressor] 12.5 mg PO BID 04/15/18 [History] Nitroglycerin [Nitrostat] 0.4 mg SL PRN PRN 04/15/18 [History] Ondansetron HCl [Zofran] 4 mg PO Q4H PRN 04/15/18 [History] Pantoprazole Sodium [Protonix] 40 mg PO DAILY 04/15/18 [History] Simvastatin [Zocor] 40 mg PO DAILY 04/15/18 [History] Sucralfate [Carafate] 1 gm PO QIDAC 04/15/18 [History] Warfarin perPT [Coumadin perPT] 2 mg PO DAILY 04/15/18 [History] Allergy/AdvReac Type Severity Reaction Status Date / Time lidocaine Allergy See Verified 04/17/18 09:26 Comments - Meds/Allergy Pre-op Review Medications Reviewed: Yes Allergies Reviewed: Yes Beta Blockers on Current Med List: Yes Anesthesia Results - Labs 04/17/18 05:24 04/17/18 05:24 - Imaging EKG: report reviewed, image reviewed (Sinus rhythm Left bundle branch block) Additional studies: 04-16-18 TTE: Impressions: LVEF 20-25%. Moderately dilated left ventricle. Atypical septal motion consistent with post-operative status. Severe left ventricular diastolic dysfunction. Mild right ventricular hypokinesis. Mild to moderate biatrial enlargement. Moderate tricuspid regurgitation. Moderate pulmonary hypertension. 03-31-18 SUDEEP: Impressions: No valvular vegetation. LVEF 25-30 %. Severe global LV hypokinesis. Moderatel global RV hypokinesis. Mildly dilated LA. Mild mitral regurgitation. Moderate tricuspid regurgitation. Moderate pulmonary hypertension. Anesthesia Exam Last Vital Signs Temp 98.5 F 04/17/18 18:41 Pulse 75 04/17/18 16:17 Resp 16 04/17/18 18:41 BP 145/77 04/17/18 18:41 Pulse Ox 73 04/17/18 18:41 Weight: 98 kg - HEENT Mallampati: II Teeth: Edentulous Anesthesia Assess/Plan ASA Score: 4 Recovery Plan: PACU <Nicci Bee - Last Filed: 04/18/18 16:31> Date of Encounter: 04/18/18 Time of Encounter: 16:31 - Past History Cardiac History: Other (PAD Underwent stress test yesterday for ischemic eval --Perfusion imaging was negative for ischemia. Perfusion imaging demonstrates infarct involving the inferolateral segments. Gated EF = 48%. The left ventricle is dilated. No high risk findings. Pt is moderate to high risk from cardiac standpoint for overall low risk procedure given reduced EF. No further inpt cardiac work-up is warranted. Will coordinate outpt follow-up. Cardiology signing off. Reconsult PRN.) Anesthesia History: No Prior Anesthetic Complications, Past Anesthesia (appendectomy, coronary bypass (CABG), orthopedic, other, splenectomy Additional surgical history: broke left foot (screws in left foot)) - Meds/Allergy Pre-op Review If Beta Blockers taken, Date/Time (Last Dose taken): 11am 04/18/18 Anesthesia Results - Labs 04/18/18 07:29 04/18/18 07:29 appendectomy, coronary bypass (CABG), orthopedic, other, splenectomy Additional surgical history: broke left foot (screws in left foot) Anesthesia Exam NPO (# of Hours): >8 - HEENT Pupil (Motor): Pupils equal, EOMI Oral Opening: Greater than 3 - 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
[2018-04-18] MEDS ORDERED: *HR* Enoxaparin 100 MG/ML SYRINGE SQ SCH (06:00)
[2018-04-18] MEDS: Pantoprazole 40 MG VIAL IVP SCH (06:09)
[2018-04-18 07:46] LABS: Basophils # 0.1 K/mcL (0.0-0.2); Basophils % 0.8 %; Eosinophils # 0.3 K/mcL (0.0-0.6); Eosinophils % 4.3 %; Hematocrit 29.7 % (35.3-44.9); Hemoglobin 9.1 g/dL (11.5-15.4); Immature Granulocytes % 0.4 % (0-4); Lymphocytes # 1.9 K/mcL (0.6-4.6); Lymphocytes % 23.4 %; Mean Corpuscular HGB Conc 30.6 g/dL (31.6-35.5); Mean Corpuscular Hemoglobin 27.7 pg (28.0-33.3); Mean Corpuscular Volume 90.3 fL (83.0-100.0); Monocytes # 0.9 K/mcL (0.0-1.3); Monocytes % 10.9 %; Neutrophils # 4.8 K/mcL (1.6-8.9); Platelet Count 450 K/mcL (140-400); Red Blood Count 3.29 M/mcL (3.82-4.97); Red Cell Distribution Width 16.3 % (11.5-14.5); Segmented Neutrophils % 60.2 %
[2018-04-18 07:53] LABS: INR 2.1; Prothrombin Time 23.4 Seconds (9.4-12.1)
[2018-04-18 08:05] LABS: BUN/Creatinine Ratio 26 (6-26); Blood Urea Nitrogen 27 mg/dL (8-23); Calcium 8.6 mg/dL (8.6-10.3); Carbon Dioxide 25 mEq/L (23-29); Chloride 108 mEq/L (98-107); Glucose 138 mg/dL (70-105); Osmolality,Calculated 299 (280-300); Sodium 141 mEq/L (136-145); eGFR For Non-African Americans 52 (> 60)
--- NOTE | 2018-04-18 10:17 | Cardiology Progress Note ---
Date of Encounter: 04/18/18 Time of Encounter: 10:15 Assessment and Plan (1) Pre-operative cardiovascular examination Current Visit: Yes Status: Acute Surgery planned with podiatry. Presented with atypical chest pain. EF found to be further reduced--45% last month, 20-25% currently. Hx CABG ~17 years ago with no recent ischemic eval. Pt is euvolemic on exam. Underwent stress test yesterday for ischemic eval--Perfusion imaging was negative for ischemia. Perfusion imaging demonstrates infarct involving the inferolateral segments. Gated EF = 48%. The left ventricle is dilated. No high risk findings. Pt is moderate to high risk from cardiac standpoint for overall low risk procedure given reduced EF. No further inpt cardiac work-up is warranted. Will coordinate outpt follow-up. Cardiology signing off. Reconsult PRN. (2) Cardiomyopathy Current Visit: Yes Status: Acute Long discussion with patient and family. Repeat TTE demonstrates reduced LVEF, 20-25%. 03/2018 EF was 45% on TTE. Agreed to proceed with stress test completed yesterday--Perfusion imaging was negative for ischemia. Perfusion imaging demonstrates infarct involving the inferolateral segments. Gated EF = 48%. The left ventricle is dilated. No high risk findings on stress. Of note, hx of CABG ~17 years ago, has not followed with Cardiology. Recent inpatient evaluation by Cardiology due to incidential finding of afib (coumadin) in the post-operative setting (left foot amputation); EF mildly reduced at that time, elected for medical therapy. Continue BB and ACEi. Per family, they are concerned about fluid volume status. Will add low dose Lasix 20mg PO daily. Continue if renal function tolerates. Will need repeat TTE in 3 months to re-evalute EF. If remains <35%, consider ICD evaluation. Cardiology signing off. Reconsult PRN. Qualifiers: Cardiomyopathy type: ischemic Qualified Code(s): I25.5 - Ischemic cardiomyopathy (3) Atypical chest pain Current Visit: Yes Status: Acute Hx CABG with no recent ischemic eval. Patient is currently CP-free.Troponin is flat. EKG shows normal acute ST-T changes Continue ASA, Statin, BB. Stress test--perfusion imaging was negative for ischemia. Perfusion imaging demonstrates infarct involving the inferolateral segments. Gated EF = 48%. The left ventricle is dilated. No high risk findings. (4) Atrial fibrillation Current Visit: Yes Status: Acute Continue BB. CHADSVASC2 6, on Coumadin for AC. INR 2.1 today. Can stop therapeutic Lovenox. Qualifiers: Atrial fibrillation type: unspecified Qualified Code(s): I48.91 - Unspecified atrial fibrillation (5) CAD (coronary artery disease) Current Visit: Yes Status: Chronic Hx CABG 17 years ago. ASA, Statin, BB, ACEi. Qualifiers: Coronary Disease-Associated Artery/Lesion type: bypass graft [place] vs. transplanted heart: [place] heart Associated angina: without angina Qualified Code(s): I25.810 - Atherosclerosis of coronary artery bypass graft(s) without angina pectoris Discussion w patient/family: The assessment and plan as outlined above was discussed with the patient and/or family members who expressed understanding and agreement. All questions were answered. Thank you for involving us in the care of your patient. Please call with any questions. I will discuss all the above with Dr. Johnson and make changes as necessary. Subjective Principal diagnosis: CMP, atypical CP Interval history: No acute complaints this AM. Stress test was a one day study completed yest erday--Perfusion imaging was negative for ischemia. Perfusion imaging demonstrates infarct involving the inferolateral segments. Pharmacologic stress ECG is non diagnostic for ischemia due to baseline non-specific ST and T abnormalities. Gated EF = 48%. The left ventricle is dilated. Objective Vital Signs, Last 4 Hours Temp Pulse Resp BP Pulse Ox 04/18/18 07:17 98.5 F 78 19 151/82 98 Vital Signs Temp Pulse Resp BP Pulse Ox 04/18/18 07:17 98.5 F 78 19 151/82 98 04/18/18 04:02 99.5 F 73 16 134/79 95 04/17/18 18:41 98.5 F 16 145/77 73 04/17/18 16:17 98.2 F 75 16 145/80 100 04/17/18 10:57 98.2 F 65 16 132/78 100 Intake and Output 04/17/18 04/18/18 04/18/18 23:59 07:59 15:59 Other: Weight 93.5 kg Blood Glucose* 253 149 Patient Weight 04/18/18 23:59 Weight 93.5 kg General: Conversant, No Apparent Distress HEENT: Atraumatic, Normocephaly, Mucus Membranes Moist Neck: No JVD, Normal carotid pulses Cardiac: Reg Rate and Rhythm, Normal S1 and S2, No Murmur Lungs: Normal Breath Sounds, No Wheeze, Rales, Rhonchi Neuro: Alert and responsive, No focal deficits noted Abdomen: Soft, Non-Tender Skin: No rashes noted on visualized skin Musculoskeletal: No Chest Wall Tenderness Extremities: No Clubbing, Other (LLE boot) Results 04/18/18 07:29 04/18/18 07:29 Lab Results 04/18/18 04/18/18 04/18/18 07:29 07:29 07:29 WBC 7.9 Hgb 9.1 L Hct 29.7 L Plt Count 450 H INR 2.1 Sodium 141 Potassium 4.0 Chloride 108 H Carbon Dioxide 25 BUN 27 H Creatinine 1.03 Glucose 138 H Calcium 8.6 Short CBC 04/18/18 Range/Units 07:29 WBC 7.9 (4.3-11.1) K/mcL Hgb 9.1 L (11.5-15.4) g/dL Hct 29.7 L (35.3-44.9) % Plt Count 450 H (140-400) K/mcL Neutrophils # 4.8 (1.6-8.9) K/mcL BMP 04/18/18 Range/Units 07:29 Sodium 141 (136-145) mEq/L Potassium 4.0 (3.5-5.1) mEq/L Chloride 108 H (98-107) mEq/L Carbon Dioxide 25 (23-29) mEq/L BUN 27 H (8-23) mg/dL Creatinine 1.03 (0.60-1.20) mg/dL Glucose 138 H (70-105) mg/dL Calcium 8.6 (8.6-10.3) mg/dL Active Medications Aspirin (Aspirin) 81 mg PO DAILY THADDE[facility] Stop: 10/16/18 12:16 Last Admin: 04/17/18 10:01 Dose: 81 mg Dextrose/Water (Dextrose 50% (Syg)) 25 ml IVP AD PRN PRN Reason: Hypoglycemia Stop: 10/15/18 04:26 Dorzolamide/Timolol (Cosopt) 1 drop RIGHT EYE BID THADDEUS Stop: 10/15/18 21:01 Last Admin: 04/17/18 21:33 Dose: 1 drop Enoxaparin Sodium (Lovenox) 100 mg 1 mg/kg (100 mg) SQ Q24H [facility]; Protocol Stop: 10/18/18 06:01 Last Admin: 04/18/18 06:09 Dose: 100 mg Glucagon (Glucagen) 1 mg IM ONCE PRN PRN Reason: Hypoglycemia Stop: 10/15/18 04:26 Glucose (Gluctose) 15 gm PO ONCE PRN PRN Reason: Hypoglycemia Stop: 10/15/18 04:26 Glucose (Gluctose) 30 gm PO ONCE PRN PRN Reason: Hypoglycemia Stop: 10/15/18 04:26 Dextrose (Dextrose 5%) 1,000 mls @ 100 mls/hr IVC .Q10H PRN PRN Reason: HYPOGLYCEMIA Stop: 10/15/18 04:26 Cefazolin Sodium 1,000 mg/ (Sterile Water) 10 mls @ 200 mls/hr IVP Q12H [facility]; Protocol Stop: 10/17/18 20:01 Last Admin: 04/17/18 21:33 Dose: 200 mls/hr Insulin Human Lispro (Humalog) 0 units SQ Q6HR [facility]; Protocol Stop: 10/15/18 06:01 Last Admin: 04/18/18 06:16 Dose: Not Given Insulin Isophane/Insulin Regular (Humulin 70/30 Vial) 20 unit SQ BID [facility] Stop: 10/15/18 21:01 Last Admin: 04/17/18 21:40 Dose: 20 unit Lisinopril (Zestril) 2.5 mg PO DAILY [facility]; Protocol Stop: 10/16/18 12:31 Last Admin: 04/17/18 10:01 Dose: 2.5 mg Metoprolol Succinate (Toprol Xl) 25 mg PO DAILY [facility] Stop: 10/17/18 09:01 Last Admin: 04/17/18 10:00 Dose: 25 mg Naloxone HCl (Narcan) 0.4 mg IVP Q2MIN PRN PRN Reason: SEE COMMENTS Stop: 10/16/18 16:19 Nitroglycerin (Nitroglycerin) 0.4 mg SL Q5MIN PRN PRN Reason: Chest Pain Stop: 10/14/18 21:49 Nystatin (Mycostatin Cream) 1 appl TP TID [facility] Stop: 10/17/18 15:01 Last Admin: 04/17/18 21:35 Dose: 1 appl Ondansetron HCl (Zofran Odt) 4 mg PO Q8HR PRN PRN Reason: Nausea Oxycodone HCl (Oxycodone Oral Conc) 5 mg SL Q12H PRN; Protocol PRN Reason: Severe Pain Stop: 10/15/18 11:18 Last Admin: 04/16/18 17:50 Dose: 5 mg Pantoprazole Sodium (Protonix) 40 mg IVP Q12HR [facility] Stop: 10/15/18 06:31 Last Admin: 04/18/18 06:09 Dose: 40 mg Simvastatin (Zocor) 40 mg PO DAILY [facility]; Protocol Stop: 10/16/18 09:01 Last Admin: 04/17/18 10:01 Dose: 40 mg Sucralfate (Carafate) 1 gm PO 0730,1630 [facility] Stop: 10/15/18 07:31 Last Admin: 04/17/18 15:50 Dose: 1 gm Vitamin D (Vitamin D) 500 unit PO DAILY [facility] Stop: 10/15/18 09:01 Last Admin: 04/17/18 10:00 Dose: 500 unit Warfarin Sodium (Coumadin Perpt) 1 each PO DAILY@1800 PRN PRN Reason: SEE COMMENTS Stop: 10/16/18 18:01 Warfarin Sodium (Coumadin) 2.5 mg PO 1800 ONE Stop: 04/18/18 18:01 - Imaging and Cardiology Stress Test: report reviewed Echo: report reviewed - EKG Interpretation EKG results cardiology: other (12 hr tele AVG HR 72, currently SR) Consult Discharge Plan - Plan Referrals: Isabelle Joseph, [employer] [Primary Care Provider] -
[2018-04-18] MEDS: Cholecalciferol (D-3) 1,000 UNIT TABLET PO SCH (10:59)
[2018-04-18] MEDS: Sucralfate 1 GM TABLET PO SCH ×2 (11:01→17:20)
[2018-04-18] MEDS: Aspirin 81 MG TAB.CHEW PO SCH (11:01)
[2018-04-18] MEDS: Metoprolol XL (24 HR) Succ 25 MG TAB.ER.24H PO SCH (11:02)
[2018-04-18] MEDS: ceFAZolin 1,000 MG in Water for inj. (sterile) 20 ML 10 ML IVP SCH ×2 (11:03→21:18)
[2018-04-18] MEDS: Insulin NPH/REG 70/30 100 UNIT/ML (x5UNIT) SQ SCH (11:04)
[2018-04-18] MEDS: Dorzolamide/Timolol OPTH 10 ML BOTTLE RIGHT EYE SCH ×2 (11:04→21:19)
[2018-04-18] MEDS: Nystatin Cream 15 GM TUBE TP SCH ×3 (11:05→21:19)
--- NOTE | 2018-04-18 12:33 | Internal Med Progress Note ---
Hospitalist Progress Note - Encounter Date of Encounter: 04/18/18 Time of Encounter: 12:32 - Subjective Interval History: Patient was seen and examined at bedside surgeries play with podiatry for today she was advised way by cardiology-she did undergo a cardiac stress test and is a moderate to high risk according to cardiology note. Currently denies any pain or discomfort at this time - Exam Vitals: Temp Pulse Resp BP Pulse Ox 99 F 71 16 148/80 96 04/18/18 11:32 04/18/18 11:32 04/18/18 11:32 04/18/18 11:32 04/18/18 11:32 Exam: PHYSICAL EXAMINATION: GENERAL: The patient is an elderly female who is in no distress, alert and oriented 3 HEENT: Head is normocephalic and atraumatic. Extraocular muscles are intact. Pupils are equal, round, and reactive to light and accommodation. NECK: Supple. No carotid bruits. No lymphadenopathy or thyromegaly. CHEST: Symmetrical expansion, no tenderness to palpation, adequate rise and fall LUNGS: Clear to auscultation B/L AP and L. HEART: RRR, S1, S2 without murmurs rubs or gallops. ABDOMEN: Soft, nontender, and nondistended. Positive bowel sounds. No hepatosplenomegaly was noted. EXTREMITIES: Without any cyanosis, clubbing, rash, lesions or edema. Partial left foot amputation with wound VAC in place. Wound base with granulation and fibrotic tissue without evidence of necrosis. No erythema found around the wound margins. Pressure ulcer of left ankle wound which was present prior to arrival. Yellow slough tissue in place without fluctuance or purulent NEUROLOGIC: Cranial nerves II through XII are grossly intact. SKIN: No ulceration or induration present. - Assessment and Plan (1) Chest pain Current Visit: Yes Status: Resolved Assessment and Plan: presented with atypical chest pain h/o extensive CAD including CABG x4 in 2000 denies ever having chest pain; instead reporting rib pain continue cardiac meds cardio planning stressin am no changes on tele; continue tele continue ASA echo with decreased EF; concerning for ischemia; d/w family and patient; they are unclear regarding how aggressive they wish to be echo with the following results-- LVEF 20-25%. Moderately dilated left ventricle. Atypical septal motion consistent with post-operative status. Severe left ventricular diastolic dysfunction. Mild right ventricular hypokinesis. Mild to moderate biatrial enlargement. Moderate tricuspid regurgitation. Moderate pulmonary hypertension. It should be noted that during registration the patient was reregistered under a new medical record ID this is made difficult to find a past history. Medical records working on reconciling both charts 04/17/18--Continues to have some mild chest tightness which she reports as chronic. She does not appear to be in any distress. No events on tele overnight. Underwent day #1 of 2-day stress. NPO after midnight for day #2 stress. No chest pain voiced at this time patient did undergo cardiac stress test perfusion imaging was negative for any ischemia perfusion imaging demonstrates infarct involving the inferolateral segments again EF is 48% troponins are flat and EKG shows no acute ST-T wave changes. Cardiology has been consulted concerning preoperative cardiovascular clearance-patient is a moderate to high risk cardiac standpoint Continue with aspirin and statin beta linda nitroglycerin as needed for chest pain continuous cardiac monitoring (2) Elevated troponin Current Visit: Yes Status: Acute Assessment and Plan: Etiology unclear Troponins adynamic this time however there are concerns for ischemic cause as echocardiogram exhibits decreased ejection fraction Plan for 2-day stress 04/18 No chest pain at this time troponins are flat adynamic EKG with no ST-T wave abnormalities evaluated by cardiology and underwent today cardiac stress test will follow up with cardiology as outpatient continue with aspirin and statin beta linda LIA (3) Diabetes Current Visit: Yes Status: Acute Assessment and Plan: History of diabetes Continue NPH 70/30 20 units subcutaneous twice a day Continue low sliding scale insulin and continue diabetic diet 04/18 Accu-Cheks before meals at bedtime continue with sliding scale insulin patient currently nothing by mouth for impending surgery (4) Anemia Current Visit: Yes Status: Acute Assessment and Plan: chronic anemia AVG H&H since 02/27 8-9 H&H 8.0 this morning; recheck in a.m. denies any bleeding; no GI bleeding Continue coumadin for now FOB pending receipt hemodynamically stable hx of a-fib; benefit outweighs risk at this time monitor for s/sx of bleeding 04/18 Hemoglobin is stable this morning at 9.1 FOB is negative Continue with Coumadin and monitor for any signs and symptoms of bleeding (5) Elevated INR Current Visit: Yes Status: Acute Assessment and Plan: INR currently 2.1 we will continue to monitor (6) DVT prophylaxis Current Visit: Yes Status: Acute Assessment and Plan: weight based lovenox, bridge to coumadin INR subtherapeutic 04/18 INR is 2.1 continue with Coumadin (7) History of recent surgery Current Visit: Yes Status: Acute Assessment and Plan: 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 She was discharged 04/03/18 to [facility] for rehabilitation Wound VAC remains in place; podiatry managing to have graft placed this stat and continue with wound vac; please see podiatry note During last admission was discharged with cefazolin 6-8 weeks, continue during this stay; duration of treatment TBD clinically but 6-weeks duration at 05/18/18 Dressing changes per podiatry 04/18 Patient had recent amputation of midfoot and was discharged 04/03/18 to [facility] for rehabilitation-podiatry managing dissipating placing grafts for continued use of wound VAC C podiatry note Wound management per podiatry During last admission patient was discharged on cefazolin 6-8 weeks-continue during admission duration of treatment TBD clinically six-week duration at 05/18/18 (8) Atrial fibrillation Current Visit: Yes Status: Acute Assessment and Plan: continue coumadin; held yesterday INR 1.8 Continue weight based lovenox until therapeutic currently SR rate in 60's continue BB for rate control 04/18 INR today is 2.1 continue to monitor continue with Coumadin pharmacy to dose Currently sinus rhythm with rates in the 60s-70 Continue with beta linda for rate control (9) Cardiomyopathy Current Visit: Yes Status: Acute Assessment and Plan: CABG x4 in 2000 no chest pain at this time continue warfarin, BB and zocor d/w cardio benefit of adding ASA 2-day stress pending cardio following; thank you, appreciate recommendations 04/18 Patient was seen by cardiology due to EF reduction-TTE 03/2018 with EF of 45%- repeat TTE demonstrated reduced EF of 2024%. Underwent cardiac stress test perfusion imaging was negative for ischemia perfusion imaging demonstrated infarct involving the inferolateral segments we gave EF 40% left ventricle is dilated no high risk findings on stress. Cardiology recommending continue beta linda and lia and they will add a low-dose Lasix 20 mg by mouth daily and monitor renal function closely. We will repeat TTE in 3 months as outpatient for reevaluation and EF cardiology recommending a fuss of 35% considering ICD with evaluation. 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 Ayers planning surgical preparation of wound bed for graft placement and continued use of wound VAC 04/18 See above Anticipate surgical intervention possibly 04/18-04/19 per podiatry - Time Spent with Patient Total time spent is greater than 50% in coordination of care (as documented) at patient's floor/unit and/or counseling patient: Internal Medicine: Result - Labs CBC & Chem 7: 04/18/18 07:29 04/18/18 07:29 Labs: Short CBC 04/18/18 Range/Units 07:29 WBC 7.9 (4.3-11.1) K/mcL Hgb 9.1 L (11.5-15.4) g/dL Hct 29.7 L (35.3-44.9) % Plt Count 450 H (140-400) K/mcL Neutrophils # 4.8 (1.6-8.9) K/mcL BMP 04/18/18 07:29 Sodium 141 Potassium 4.0 Chloride 108 H Carbon Dioxide 25 BUN 27 H Creatinine 1.03 Glucose 138 H Calcium 8.6 - ABG Interpretation ABG results: PT/INR, D-dimer PT 23.4 Seconds (9.4-12.1) H 04/18/18 07:29 Consult Discharge Plan - Plan Referrals: Isabelle Joseph, FILE CONVERSION OPERATOR [Primary Care Provider] - (1) Chest pain Qualifiers: Chest pain type: unspecified Qualified Code(s): R07.9 - Chest pain, unspecified (3) Diabetes Qualifiers: Diabetes mellitus type: type 2 Diabetes mellitus halfway insulin use: with supervisor long goods use Diabetes mellitus complication detail: with diabetic retinopathy Diabetic retinopathy severity: with unspecified retinopathy severity Diabetes mellitus macular edema: macular edema presence unspecified Laterality: left (4) Anemia Qualifiers: Anemia type: iron deficiency Qualified Code(s): D50.9 - Iron deficiency anemia, unspecified (8) Atrial fibrillation Qualifiers: Atrial fibrillation type: unspecified Qualified Code(s): I48.91 - Unspecified atrial fibrillation (9) Cardiomyopathy Qualifiers: Cardiomyopathy type: ischemic Qualified Code(s): I25.5 - Ischemic cardiomyopathy
[2018-04-18] MEDS ORDERED: Lidocaine -MPF 2% 2 ML VIAL ONE (15:57)
[2018-04-18] MEDS ORDERED: *HR* FentaNYL (PF) 100 MCG/2 ML VIAL ONE (15:57)
[2018-04-18] MEDS ORDERED: Propofol 500 MG/50 ML INFUS..BTL ONE (15:57)
[2018-04-18] MEDS ORDERED: Bupivacaine/EPI 1:200k 0.25%PF 30 ML VIAL ONE (16:00)
[2018-04-18] MEDS ORDERED: Chloroprocaine/PF 20 ML VIAL INFILT ONE (16:42)
--- NOTE | 2018-04-18 17:43 | Operative Note ---
Date of procedure: 04/18/18 Pre-op diagnosis: left foot ulcer 7.2cx6.2cmx0.4cm, left ankle ulcer [id number] Post-op diagnosis: same Procedure: surgical preparation of wound bed for graft left foot application of graft excision of left foot ulceration and closure Implants: PuraPly Complications: none Anesthesia: MAC Local Anesthetics: Other (Chloroprocaine) Surgeon: Agus Ayers Was there an higher level teaching assistant present: No Estimated blood loss (cc): 40 Specimen: left foot bone micro and pathology Condition: stable Disposition: PACU Procedure in Detail: Indications: A 78-year-old diabetic female admitted with chest pain and had workup. Patient deemed stable by cardiology. Patient has history of diabetes with neuropathy and previous [place] amputation being brought to the operating room for the above procedures after discussing the nature of the procedures, risks versus benefits potential complications consequences of her condition and surgery. No guarantees were made as to her functionality ability to heal the wound despite having surgery. It was explained to the patient that she will need multiple trips to the operating room to try to salvage the foot if possible. All of her questions have been answered and informed consent was signed. Patient was taken from the preoperative holding area and operating room placed on operating room table in the supine position. The left foot was sc rubbed prepped and draped in the usual sterile fashion. 15 mL of cortical procaine was injected into the patient's left foot. Attention was then directed to the patient's left ankle. Left ankle excision and closure of wound. A #15 blade was used to make an elliptical incision around the lateral ankle ulceration and this wound was excised. The underlying tissue was probed and explored. No purulence or devitalized tissue was present. The area was flushed. Subcutaneous tissue is closed with Vicryl and the skin was reapproximated with 2-0 Prolene. Surgical preparation left foot wound for graft. Attention was directed to the distal aspect of the patient's amputation site or wound is measurements listed above was present. The GateGuruonex debridement wand was utilized to remove tissue and the rongeur was also used to remove bone which was soft in nature at the distal aspect of the wound and exposed. Bone was sent to microbiology and pathology. The remaining bone was felt to be of hard quality. The wound bed was completely granular and felt to benefit adequately prepared for the application of the graft. Blood which was obtained by the perfusion team and spun into PRP was applied to the wound bed. Application of graft left foot. A pure apply 6 cm x 9 cm graft was applied to the wound and anchored to the wound bed with suture. A piece of Adaptic was applied over top of the wound. A wound VAC was then applied. Patient tolerated the anesthesia and the procedure well escorted the recovery room with vital signs stable and adequate hemostasis to the left foot. Kerlix was applied to the wound and patient's left extremity was placed back into the heel protector boot. She will return to the floor.
[2018-04-18] MEDS ORDERED: *HR* Warfarin 2.5 MG TABLET PO ONE ×2 (18:00→19:18)
--- NOTE | 2018-04-18 18:17 | Anesthesia Evaluation Post Op ---
Date of Encounter: 04/18/18 Time of Encounter: 18:15 - Vital Signs Vital Signs: Vital Signs/O2 Sat, Most Current Temp Pulse Resp BP Pulse Ox 98.5 F 68 20 146/79 97 04/18/18 18:06 04/18/18 18:06 04/18/18 18:06 04/18/18 18:06 04/18/18 18:06 - Lungs Lungs: Clear Ascult./Percussion - Airway Airway: Non-obstructed - Cardiovascular Regular Rate - Mental Status Mental Status: Baseline Status - Pain Pain Scale: 0 Pain Scale used: Numeric (1 - 10) - Nausea Vomiting Nausea Vomiting: Not Present - Hydration Hydration: NPO - Discharge PostOp Status: Discharge Patient to home
[2018-04-18] MEDS ORDERED: Naloxone 0.4 MG/ML INJ IVP PRN (19:18)
[2018-04-18] MEDS ORDERED: D5% in Water 1,000 ML IVC PRN (19:18)
[2018-04-18] MEDS ORDERED: Warfarin perPT PO PRN (19:18)
[2018-04-18] MEDS ORDERED: Dextrose Gel 15 GM/37.5 ML TUBE PO PRN ×2 (19:18)
[2018-04-18] MEDS ORDERED: Nitroglycerin 0.4 MG TAB.SUBL SL PRN (19:18)
[2018-04-18] MEDS ORDERED: Ondansetron ODT 4 MG TAB.RAPDIS PO PRN (19:18)
[2018-04-18] MEDS ORDERED: OXYCODONE Oral CONC 10 MG/0.5 ML ORAL.SYG SL PRN (19:18)
[2018-04-18] MEDS ORDERED: Insulin NPH/REG 70/30 100 UNIT/ML (x5UNIT) SQ SCH (21:00)
[2018-04-19] MEDS: Insulin LISPRO 300 UNITS/3 ML VIAL SQ SCH ×3 (00:28→12:07)
[2018-04-19 05:27] LABS: Basophils # 0.1 K/mcL (0.0-0.2); Basophils % 0.7 %; Eosinophils # 0.1 K/mcL (0.0-0.6); Eosinophils % 1.4 %; Hematocrit 28.4 % (35.3-44.9); Hemoglobin 8.7 g/dL (11.5-15.4); Immature Granulocytes % 0.4 % (0-4); Lymphocytes # 2.3 K/mcL (0.6-4.6); Lymphocytes % 22.9 %; Mean Corpuscular HGB Conc 30.6 g/dL (31.6-35.5); Mean Corpuscular Hemoglobin 27.6 pg (28.0-33.3); Mean Corpuscular Volume 90.2 fL (83.0-100.0); Mean Platelet Volume 12.3 fL (9.4-12.4); Monocytes # 1.1 K/mcL (0.0-1.3); Neutrophils # 6.3 K/mcL (1.6-8.9); Platelet Count 443 K/mcL (140-400); Red Blood Count 3.15 M/mcL (3.82-4.97); Red Cell Distribution Width 16.4 % (11.5-14.5); Segmented Neutrophils % 63.6 %
[2018-04-19 05:33] LABS: INR 2.1; Prothrombin Time 23.2 Seconds (9.4-12.1)
[2018-04-19 05:45] LABS: BUN/Creatinine Ratio 24 (6-26); Blood Urea Nitrogen 22 mg/dL (8-23); Calcium 8.8 mg/dL (8.6-10.3); Carbon Dioxide 28 mEq/L (23-29); Chloride 109 mEq/L (98-107); Glucose 46 mg/dL (70-105); Osmolality,Calculated 298 (280-300); Potassium 3.6 mEq/L (3.5-5.1); Sodium 144 mEq/L (136-145); eGFR For Non-African Americans 58 (> 60)
[2018-04-19] MEDS: *HR* Dextrose 50 % in Water (Syg) 50 ML SYRINGE IVP PRN ×2 (05:58→08:01)
[2018-04-19] MEDS ORDERED: Pantoprazole 40 MG VIAL IVP SCH (06:00)
[2018-04-19] MEDS ORDERED: Sucralfate 1 GM TABLET PO SCH (07:30)
[2018-04-19] MEDS: ceFAZolin 1,000 MG in Water for inj. (sterile) 20 ML 10 ML IVP SCH (07:47)
[2018-04-19] MEDS: Nystatin Cream 15 GM TUBE TP SCH (07:48)
[2018-04-19] MEDS: Dorzolamide/Timolol OPTH 10 ML BOTTLE RIGHT EYE SCH (07:48)
[2018-04-19] MEDS ORDERED: Furosemide 20 MG TABLET PO SCH ×2 (09:00)
[2018-04-19] MEDS ORDERED: Metoprolol XL (24 HR) Succ 25 MG TAB.ER.24H PO SCH (09:00)
[2018-04-19] MEDS ORDERED: Aspirin 81 MG TAB.CHEW PO SCH (09:00)
[2018-04-19] MEDS ORDERED: Cholecalciferol (D-3) 1,000 UNIT TABLET PO SCH (09:00)
--- NOTE | 2018-04-19 09:27 | Internal Med Progress Note ---
Hospitalist Progress Note - Encounter Date of Encounter: 04/19/18 Time of Encounter: 09:24 - Subjective Interval History: 78F admitted for CP, underwent 2 day nuclear stress test 04/17-04/18 which showed inferolateral segment ischemia, echo on 04/14 showed EF 25% with moderately dilated LV, severe LV dyastiolic dysfc, RV hypokineses, jessica atrial enlargement, mod pulm HTN, troponins trended, podiatry performed left foot graft yesterday. Pt endorsing some chronic numbness in feet and legs today that is present, as she states, "because of her diabetes." ROS negative otherwise. Left foot is heavily bandaged and posterior side of bandages with serosanguinous fluid leaking through. Pt eating with assistance from . Had issues with hypoglycemia, but resolved with caodaism of normal diet and D50. - Exam Vitals: Temp Pulse Resp BP Pulse Ox 98 F 74 17 152/86 93 04/19/18 03:51 04/19/18 03:51 04/19/18 03:51 04/19/18 03:51 04/19/18 03:51 Exam: Gen: well nourished female in no acute distress HENT: mucous membranes moist, non-icteral sclera, head normocephalic nontraumatic Cardio: RRR, no m/r/g Pulm: CTAB, no wheezes/rales/ronchi Abd: Soft, non-tender, non-rigid, no guarding/rebound Extremities: LLE terminates in thick bandages with serosanginous fluid leaking through bandages, RLE unremarkable Skin: Warm, dry, intact with exception LLE Neuro: A&O x 3, mentating well, easily engaged in conversation. - Assessment and Plan (1) A-fib Current Visit: No Status: Acute Assessment and Plan: Pt currently not in AFib, but on Warfarin for anticoagulation. (2) Anemia Current Visit: No Status: Acute Assessment and Plan: Pt admitted with Hg 8.8, currently 8.7. MCV 90.2. Most recent ferritin level 293 (high) with transferrin 105 (low), and Iron 31(low). Pt also had concomittant dx of CKD stage 5. Anemia likely a combination of kidney disease and lack of EPO production as well as normocytic early iron deficiency anemia. - Maintain Hg >8.0 - Iron supplementation (3) Cardiomyopathy Current Visit: Yes Status: Acute (4) Chest pain Current Visit: Yes Status: Resolved (5) Diabetes Current Visit: Yes Status: Acute (6) Elevated INR Current Visit: Yes Status: Acute (7) Elevated troponin Current Visit: Yes Status: Acute (8) History of recent surgery Current Visit: Yes Status: Acute (9) Non-pressure chronic ulcer of other part of left foot with fat layer exposed Current Visit: Yes Status: Acute - Time Spent with Patient Total time spent is greater than 50% in coordination of care (as documented) at patient's floor/unit and/or counseling patient: Internal Medicine: Result - Labs CBC & Chem 7: 04/19/18 04:43 04/19/18 04:43 Labs: Short CBC 04/19/18 Range/Units 04:43 WBC 9.8 (4.3-11.1) K/mcL Hgb 8.7 L (11.5-15.4) g/dL Hct 28.4 L (35.3-44.9) % Plt Count 443 H (140-400) K/mcL Neutrophils # 6.3 (1.6-8.9) K/mcL BMP 04/19/18 04:43 Sodium 144 Potassium 3.6 Chloride 109 H Carbon Dioxide 28 BUN 22 Creatinine 0.93 Glucose 46 L Calcium 8.8 - ABG Interpretation ABG results: PT/INR, D-dimer PT 23.2 Seconds (9.4-12.1) H 04/19/18 04:43 Consult Discharge Plan - Plan Referrals: Isabelle Joseph, TEST MANAGER [Primary Care Provider] - 04/24/18 9:00 am (1) A-fib Qualifiers: Qualified Code(s): I48.1 - Persistent atrial fibrillation (2) Anemia Qualifiers: Qualified Code(s): D50.8 - Other iron deficiency anemias (3) Cardiomyopathy Qualifiers: Qualified Code(s): I25.5 - Ischemic cardiomyopathy (4) Chest pain Qualifiers: Qualified Code(s): R07.9 - Chest pain, unspecified (5) Diabetes Qualifiers: Qualified Code(s): E11.319 - Type 2 diabetes mellitus with unspecified diabetic retinopathy without macular edema; Z79.4 - senior care (current) use of insulin
--- NOTE | 2018-04-19 14:17 | Podiatry Progress Note ---
Date of Encounter: 04/19/18 Time of Encounter: 13:10 - Assessment and Plan (1) Non-pressure chronic ulcer of other part of left foot with fat layer exposed Current Visit: Yes Status: Acute Nursing staff called stating there was a large amount of drainage on old dressing. Upon entering room wound VAC had no seal. Changed wound VAC dressing. Wound bed with dried sanguinous drainage. [place] wound bed and slough noted to outer edges. Sutures to lateral aspect intact with maceration. Sutures to medial aspect intact no signs of dehiscence noted. Wound closure to left lateral malleolus intact no signs of dehiscence noted. Cleansed with 0.9 normal saline Applied Adaptic to wound bed. Applied black foam over wound and applied wound VAC. Covered adaptic to the incision sites. Covered dressing with Kerlix. Placed harris boot to LLE. Please make sure patient wears at all times while in bed. Change VAC Tuesday. Plan to go back to [facility] with wound VAC. Subjective Principal diagnosis: CMP, atypical CP Interval history: Patient resting in bed. Alert and oriented 3. at bedside. Nurse reports dressing was saturated overnight and had to be changed. Objective - Vital Signs Vital Signs: Vital Signs Temp Pulse Resp BP Pulse Ox 04/19/18 11:25 97.9 F 69 18 130/77 100 04/19/18 03:51 98 F 74 17 152/86 93 04/18/18 22:46 98.5 F 70 17 143/77 96 04/18/18 21:52 98.5 F 72 18 145/76 97 04/18/18 20:51 98.5 F 68 18 144/80 95 04/18/18 19:48 98.3 F 69 18 143/84 95 04/18/18 18:16 99.1 F 67 17 146/74 95 04/18/18 18:06 98.5 F 68 20 146/79 97 04/18/18 17:56 69 20 140/76 96 04/18/18 17:46 63 20 131/64 99 04/18/18 17:36 99.0 F 61 18 127/61 100 Intake and Output 04/18/18 04/19/18 04/19/18 23:59 07:59 15:59 Intake Total Output Total 240 / 240 75 / 75 Balance -230 / -230 -75 / -75 Intake: IV Fluids Ancef 1,000 MG In Water for inj . (sterile) 10 ML @ 200 mls/hr IVP Q12H THADDEUS Rx#:[id number] Output: Urine 150 / 150 Estimated Blood Loss 40 / 40 Wound Drainage 50 / 50 75 / 75 Left Foot 50 / 50 75 / 75 Other: Meal NPO Percent of Meal Consumed 0% # Voids 0 1 Weight 92.2 kg Blood Glucose* 64 184 Patient Weight 04/19/18 23:59 Weight 92.2 kg - Exam Exam: Constitiutional: Alert and oriented x 3. Vascular: 2/4 DP/PT right, 2/4 popliteal left, CFT <3 sec to all digits right, warm to warm from tibia to toes right, left warm from tibia to Neurologic: abnormal sensation LLE Dermatologic: Wound vac in place. Sanguinous drainage noted to dressing. No seal to wound VAC. Musculoskeletal: left charcot amputation - Lab Result Diagrams: 04/19/18 04:43 04/19/18 04:43 Labs: Abnormal lab results RBC 3.15 M/mcL (3.82-4.97) L 04/19/18 04:43 Hgb 8.7 g/dL (11.5-15.4) L 04/19/18 04:43 Hct 28.4 % (35.3-44.9) L 04/19/18 04:43 MCH 27.6 pg (28.0-33.3) L 04/19/18 04:43 MCHC 30.6 g/dL (31.6-35.5) L 04/19/18 04:43 RDW 16.4 % (11.5-14.5) H 04/19/18 04:43 Plt Count 443 K/mcL (140-400) H 04/19/18 04:43 PT 23.2 Seconds (9.4-12.1) H 04/19/18 04:43 Chloride 109 mEq/L (98-107) H 04/19/18 04:43 Est GFR (Non-Af Amer) 58 (> 60) L 04/19/18 04:43 Glucose 46 mg/dL (70-105) L 04/19/18 04:43 POC Glucose 44 mg/dL (70-99) L* 04/19/18 05:56 Troponin I 0.05 ng/mL (< 0.04) H* 04/15/18 09:37 Microbiology, Last 48 Hours 04/18/18 17:10 Surgical Biopsy Culture - Preliminary Left Foot Consult Discharge Plan - Plan Additional Instructions: Follow in wound center with Dr. Ayers. Please make appointment prior to D/C Referrals: Isabelle Joseph CNP [Primary Care Provider] - 04/24/18 9:00 am Agus Ayers DPM [Partnered Physician] -
--- NOTE | 2018-04-19 14:57 | Discharge Summary ---
<Kirstin Rayo - Last Filed: 04/19/18 14:55> - NOTES TO OUTPATIENT PROVIDER Notes to Outpatient Provider: 1. Pt will need follow-up with cardiology and repeat TTE study in three months. 2. Pt's INR at admission was 1.8 and 2.1 at discharge. She will require outpatient monitoring of INR to maintain therapeutic level. 3. Pt underwent wound bed graft on 04/18/[address] Ayers, podiatry, that plans to follow the patient in wound clinic. Orders not resulted at time of discharge: Pending orders 04/15/18 16:07 NM eduardo perf SPECT multi [NM] Routine 04/16/18 20:25 Culture,Blood [BC] Stat 04/18/18 17:10 Culture,Tissue (Biopsy) [RM] Routine 04/18/18 17:22 Surgical Pathology [PTH] Routine 04/20/18 04:00 PT/INR [Prothrombin Time INR] [COAG] AM 0400 04/21/18 04:00 PT/INR [Prothrombin Time INR] [COAG] AM 0400 Date of Encounter: 04/19/18 Time of Encounter: 14:55 - Discharge Diagnosis (1) A-fib Priority: Secondary Status: Acute Assessment and Plan: Pt was admitted on warfarin but INR was 1.8. Coumadin was held for surgery and she was treated with weight based lovenox until after surgery when coumadin was restarted. last INR 2.1 on 04/19/18. Qualifiers: Atrial fibrillation type: persistent Qualified Code(s): I48.1 - Persistent atrial fibrillation (2) Anemia Priority: Secondary Status: Acute Assessment and Plan: Pt admit Hg was 8.7, discharge Hg 8.7. MCV 90.2. last iron studies during previous admission show low iron levels. Iron supplementation recommended for normocytic early iron deficiency anemia in the environment of chronic kidney disease. Qualifiers: Anemia type: iron deficiency Qualified Code(s): D50.8 - Other iron deficiency anemias (3) Cardiomyopathy Priority: Secondary Status: Acute Assessment and Plan: CABG x 4 in 2000. Pt was complaining of chest pain at admit, underwent 2-day nuclear stress test which did not reveal ischemia. Previous echocardiogram revealed EF 20-25% and dilated left ventricle. Followed by cardiology - recommended that she undergo repeat TTE in 3 mos as outpatient. Qualifiers: Cardiomyopathy type: ischemic Qualified Code(s): I25.5 - Ischemic cardiomyopathy (4) Chest pain Priority: Primary Status: Resolved Assessment and Plan: Pt presented to [facility] ED with atypical chest pain. Pt had hx of extensive CAD with CABG x4 in 2000. Had 2-day nuclear stress test which did not reveal any areas of ischemia. Previous echocardiogram revealed LVEF 20-25% with: Moderately dilated left ventricle. Atypical septal motion consistent with post-operative status. Severe left ventricular diastolic dysfunction. Mild right ventricular hypokinesis. Mild to moderate biatrial enlargement. Moderate tricuspid regurgitation. Moderate pulmonary hypertension. moderately dilated left ventricle Pt had elevated troponin at admission of 0.05 which was trended Q8 and was 0.04 then 0.05 respectively. Pt was treated with ASA, statin, beta linda, NG during her time here and chest pain resolved during her admission. She will require outpatient follow-up in three months with repeat TTE. Qualifiers: Chest pain type: unspecified Qualified Code(s): R07.9 - Chest pain, unspecified (5) Diabetes Priority: Secondary Status: Chronic Assessment and Plan: Hx of Diabetes Pt received NPH 70/30 20 units SQ daily with low sliding scale and diabetic diet. Blood sugars were highly variable, although pt was NPO at one point in preparation for surgery. Sugars ranged between 250 - 70s. Recommend outpatient followup and management. 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 Continued close outpatient monitoring is recommended. (7) Elevated troponin Priority: Secondary Status: Acute Assessment and Plan: Pts admission troponin was 0.05 which was trended and was 0.04 then 0.05. 2-day nuclear stress test did not reveal any evidence of ischemia. Recommend repeat TTE in 3 mons with cardiology follow-up. 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 During this admission, pt underwent left foot graft. Followed by podiatry. Podiatry recommends 6 weeks of cefazolin until 05/18/18 or until clinical response. Dressing changes per podiatry. Pt will be d/c to ECF with wound management. (9) Non-pressure chronic ulcer of other part of left foot with fat layer exposed Priority: Secondary Status: Acute Assessment and Plan: Recent admission with bacteremia, gas gangrene and osteomyelitis secondary to chronic pressure ulcer left foot with exposure of fat layer On 03/29/18 patient underwent partial foot amputation due to gas gangrene and skin necrosis During his prior admission she was being followed by infectious disease as well due to osteomyelitis Causative organism at that time: P mirabilis and S anginosus She was discharged on 04/04/18 with a wound VAC and was to receive a total of 6 week course of Ancef which should finish 05/18/18 pending clinical picture She is to have outpatient f/u with ID; will need rescheduled at d/c Dr. Ayers performed graft placement 04/18/18 and recommends continued use of wound VAC Hospital course: Ms. Kaplan is a 78 year old female that presented to [facility] ED on 04/14/18 for complaints of chest pain. She was found to have an elevated troponin at 0.05 which was trended twice more with values 0.04 and 0.05. She underwent 2-day nuclear stress test with failed to reveal any ischemia. It is recommended that she undergo outpatient TTE with cardiology follow-up in three months. Additionally, during this inpatient admission, she underwent a left wound bed graft under care of podiatry on 04/18/18 which will require wound management per their protocol with dressing changes as directed. She will need a wound vac, per podiatry. Pt's chest pain resolved during the course of her admission and is believed to be related to her recent increase in PT at the ECF. Podiatry examined and redressed her wound on 04/19/18 and determined she was well enough to be released back to her ECF. Pt's INR at admission was 1.8 which was subtherapeutic for AFib, but was 2.1 at discharge. This will require outpatient monitoring. Pt was given an opportunity to ask questions and all of her concerns were addressed. Discharge discussed with: patient, family Time spent discussing smoking cessation with patient: 3 to 10 minutes - Time Spent with Patient Total time spent providing and/or coordinating discharge services: Less than 30 minutes - Discharge Medications Prescriptions: Nystatin Cream [Mycostatin Cream] 1 appl TP TID #1 tube OXYCODONE Oral CONC [Oxycodone Oral Conc] 5 mg SL Q12H PRN 1 Days #2 oral.syg PRN Reason: Severe Pain Home Medications: Dorzolamide/Timolol [Cosopt] 1 drop OP BID 02/23/17 [History] Simvastatin [Zocor] 40 mg PO HS 02/23/17 [History] Ergocalciferol (VITAMIN D2) [Vitamin D2] 50,000 unit PO QWEEK 03/25/18 [History] Cefazolin Sodium/D5w [Cefazolin 2 G/50 ml-D5w Bag] 2 gm IV Q8HR 49 Days #147 piggyback 04/03/18 [Rx] Insulin LISPRO [HumaLOG] 0 units SQ HS vial 04/03/18 [Rx] Insulin LISPRO [HumaLOG] 0 units SQ TIDAC vial 04/03/18 [Rx] Insulin NPH/REG 70/30 (HUMAN) [Humulin 70/30 Vial] 20 unit SQ BIDAC q1aryme 04/03/18 [Rx] Metoprolol [Lopressor] 12.5 mg PO BID 30 Days #60 tablet 04/03/18 [Rx] Pantoprazole Sodium [Protonix] 40 mg PO DAILY 30 Days #30 tab 04/03/18 [Rx] Sucralfate [Carafate] 1 gm PO 0730,1630 30 Days #60 tablet 04/03/18 [Rx] Acetaminophen [Tylenol] 650 mg PO Q4H PRN 04/15/18 [History] Cefazolin Sodium/D5w [Cefazolin 2 G/50 ml-D5w Bag] 1 vial IV DAILY 04/15/18 [History] Dorzolamide/Timolol/Pf [Dorzolamide-Timolol 2%-0.5%] 1 drop OP BID 04/15/18 [History] Ergocalciferol (VITAMIN D2) [Drisdol (50,000 Unit)] 50,000 unit PO MO 04/15/18 [History] Insulin NPH Hum/Reg Insulin Hm [Humulin 70-30 Vial] 20 unit SQ BID 04/15/18 [History] Metoprolol [Lopressor] 12.5 mg PO BID 04/15/18 [History] Nitroglycerin [Nitrostat] 0.4 mg SL PRN PRN 04/15/18 [History] Ondansetron HCl [Zofran] 4 mg PO Q4H PRN 04/15/18 [History] Pantoprazole Sodium [Protonix] 40 mg PO DAILY 04/15/18 [History] Simvastatin [Zocor] 40 mg PO DAILY 04/15/18 [History] Sucralfate [Carafate] 1 gm PO QIDAC 04/15/18 [History] Warfarin perPT [Coumadin perPT] 2 mg PO DAILY 04/15/18 [History] Nystatin Cream [Mycostatin Cream] 1 appl TP TID #1 tube 04/19/18 [Rx] OXYCODONE Oral CONC [Oxycodone Oral Conc] 5 mg SL Q12H PRN 1 Days #2 oral.syg 04/19/18 [Rx] Allergies/Adverse Reactions: Allergy/AdvReac Type Severity Reaction Status Date / Time lidocaine Allergy See Verified 04/17/18 09:26 Comments Date of admission: 04/16/18 16:36 Primary care physician: Isabelle Joseph CNP Consults: 04/15/18 04:35 Consult to Wound Care [CONS] Routine Reason for Consult: Patient recently had left foot amputation, with wound VAC applied. Admitted this hospitalization for chest pain Patient also has MASD in groin area and buttocks Call Completed: No 04/15/18 06:14 Consult to Cardiology [CONS] Routine Comment: Consulting Provider: Cardiology Isa Reason for Consult: Elevated troponin, chest pain. Recent TTE, SUDEEP Call Completed: No 04/17/18 08:43 Consult to Foundry Engineer [CONS] Routine Reason for SW Consult: RETURN TO SNF - Constitutional Vitals: Temp Pulse Resp BP Pulse Ox 97.9 F 69 18 130/77 100 04/19/18 11:25 04/19/18 11:25 04/19/18 11:25 04/19/18 11:25 04/19/18 11:25 General appearance: Present: cooperative, A&O X 3, pleasant, no acute distress, answers questions appropriately Exam: Gen: well nourished female in no acute distress HENT: mucous membranes moist, non-icteral sclera, head normocephalic nontraumatic Cardio: RRR, no m/r/g Pulm: CTAB, no wheezes/rales/ronchi Abd: Soft, non-tender, non-rigid, no guarding/rebound Extremities: LLE terminates in thick bandages with serosanginous fluid leaking through bandages, RLE unremarkable Skin: Warm, dry, intact with exception LLE Neuro: A&O x 3, mentating well, easily engaged in conversation. - Patient Status Disposition: Transfer SNF Condition: Fair Overall status at discharge: patient is progressing back to baseline - Discharge Instructions Instructions: Chest Pain (DC) Follow Up With: Agus Ayers DPM [Partnered Physician] - () Isabelle Joseph CNP [Primary Care Provider] - 04/24/18 9:00 am Forms: ED Satisfaction Letter Additional Instructions: Follow in wound center with Dr. Ayers. Please make appointment prior to D/C - Diet and Activity Activity: as per physical therapy Diet: diabetic diet <Guero Ovalle - Last Filed: 04/19/18 16:25> Orders not resulted at time of discharge: Pending orders 04/15/18 16:07 NM eduardo perf SPECT multi [NM] Routine 04/16/18 20:25 Culture,Blood [BC] Stat 04/18/18 17:10 Culture,Tissue (Biopsy) [RM] Routine 04/18/18 17:22 Surgical Pathology [PTH] Routine 04/20/18 04:00 PT/INR [Prothrombin Time INR] [COAG] AM 0400 04/21/18 04:00 PT/INR [Prothrombin Time INR] [COAG] AM 0400 Date of Encounter: 04/19/18 - Discharge Diagnosis (1) Non-pressure chronic ulcer of other part of left foot with fat layer exposed Priority: Primary Status: Acute (2) Anemia Priority: Secondary Status: Chronic Qualifiers: Anemia type: iron deficiency Qualified Code(s): D50.9 - Iron deficiency anemia, unspecified (3) CAD (coronary artery disease) Priority: Secondary Status: Chronic Qualifiers: Coronary Disease-Associated Artery/Lesion type: bypass graft [place] vs. 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 mellitus marine oil terminal superintendent insulin use: with senior care use Diabetes mellitus complication detail: with diabetic retinopathy Diabetic retinopathy severity: with unspecified retinopathy severity Diabetes mellitus macular edema: macular edema presence unspecified Laterality: left Qualified Code(s): E11.319 - Type 2 diabetes mellitus with unspecified diabetic retinopathy without macular edema; Z79.4 - long term care social worker (current) use of insulin (5) Peripheral vascular disease Priority: Secondary Status: Chronic (6) A-fib Status: Chronic Qualifiers: Atrial fibrillation type: persistent Qualified Code(s): I48.1 - Persistent atrial fibrillation (7) Cardiomyopathy Status: Chronic Qualifiers: Cardiomyopathy type: ischemic Qualified Code(s): I25.5 - Ischemic cardiomyopathy (8) Chronic systolic (congestive) heart failure Priority: Secondary Status: Chronic Hospital course: Ms. Kaplan is a 78 year old female - Time Spent with Patient Total time spent providing and/or coordinating discharge services: 38min Date of admission: 04/16/18 16:36 Primary care physician: Isabelle Joseph CNP Consults: 04/15/18 04:35 Consult to Wound Care [CONS] Routine Reason for Consult: Patient recently had left foot amputation, with wound VAC applied. Admitted this hospitalization for chest pain Patient also has MASD in groin area and buttocks Call Completed: No 04/15/18 06:14 Consult to Cardiology [CONS] Routine Comment: Consulting Provider: Cardiology Isa Reason for Consult: Elevated troponin, chest pain. Recent TTE, SUDEEP Call Completed: No 04/17/18 08:43 Consult to Foundry Engineer [CONS] Routine Reason for SW Consult: RETURN TO SNF - Constitutional Vitals: Temp Pulse Resp BP Pulse Ox 98.4 F 69 18 128/72 95 04/19/18 15:34 04/19/18 15:34 04/19/18 15:34 04/19/18 15:34 04/19/18 15:34 - Attending Attestation I examined this patient and my medical decision-making was reviewed with the Resident Physician on 04/19/18. I agree with the documented findings, disposition and treatment plan as described except to the extent set forth below. Ms Kaplan has been admitted due to chest pain. She was found to be anemic. She was evaluated by cardiology and had systolic heart failure. Meds were adjusted and stress test was negative for ischemia. GI work up negative in prior admission. She was evaluated by podiatry and had graft placement on foot. She was continued on IV abx. She tolerated well. Today she is afebrile. She has wound vac in place and is ready to return to SNF. Exam alert Comfortable Mucus membranes dry Heart distant and not tachy No wheeze abd soft Plan D/C to SNF today Wound vac Complete IV abx.
[2018-04-19 15:35] VITALS: BP 128/72
--- NOTE | 2018-04-19 16:12 | Physician Discharge Referral ---
ExtendedCare Referral Info Provider in Charge after Transfer: PCP Institutional Level of Care: Skilled - Diagnosis (1) Non-pressure chronic ulcer of other part of left foot with fat layer exposed Priority: Primary Status: Acute (2) Atrial fibrillation Priority: Secondary Status: Chronic (3) Anemia Priority: Secondary Status: Chronic (4) CAD (coronary artery disease) Priority: Secondary Status: Chronic (5) Diabetes Priority: Secondary Status: Chronic (6) Peripheral vascular disease Priority: Secondary Status: Chronic (7) A-fib Priority: Secondary Status: Acute - Transfer Medications Prescriptions: Nystatin Cream [Mycostatin Cream] 1 appl TP TID #1 tube OXYCODONE Oral CONC [Oxycodone Oral Conc] 5 mg SL Q12H PRN 1 Days #2 oral.syg PRN Reason: Severe Pain Home Medications: Dorzolamide/Timolol [Cosopt] 1 drop OP BID 02/23/17 [History] Simvastatin [Zocor] 40 mg PO HS 02/23/17 [History] Ergocalciferol (VITAMIN D2) [Vitamin D2] 50,000 unit PO QWEEK 03/25/18 [History] Cefazolin Sodium/D5w [Cefazolin 2 G/50 ml-D5w Bag] 2 gm IV Q8HR 49 Days #147 piggyback 04/03/18 [Rx] Insulin LISPRO [HumaLOG] 0 units SQ HS vial 04/03/18 [Rx] Insulin LISPRO [HumaLOG] 0 units SQ TIDAC vial 04/03/18 [Rx] Insulin NPH/REG 70/30 (HUMAN) [Humulin 70/30 Vial] 20 unit SQ BIDAC [id number] 04/03/18 [Rx] Metoprolol [Lopressor] 12.5 mg PO BID 30 Days #60 tablet 04/03/18 [Rx] Pantoprazole Sodium [Protonix] 40 mg PO DAILY 30 Days #30 tab 04/03/18 [Rx] Sucralfate [Carafate] 1 gm PO 0730,1630 30 Days #60 tablet 04/03/18 [Rx] Acetaminophen [Tylenol] 650 mg PO Q4H PRN 04/15/18 [History] Cefazolin Sodium/D5w [Cefazolin 2 G/50 ml-D5w Bag] 1 vial IV DAILY 04/15/18 [History] Dorzolamide/Timolol/Pf [Dorzolamide-Timolol 2%-0.5%] 1 drop OP BID 04/15/18 [History] Ergocalciferol (VITAMIN D2) [Drisdol (50,000 Unit)] 50,000 unit PO MO 04/15/18 [History] Insulin NPH Hum/Reg Insulin Hm [Humulin 70-30 Vial] 20 unit SQ BID 04/15/18 [History] Metoprolol [Lopressor] 12.5 mg PO BID 04/15/18 [History] Nitroglycerin [Nitrostat] 0.4 mg SL PRN PRN 04/15/18 [History] Ondansetron HCl [Zofran] 4 mg PO Q4H PRN 04/15/18 [History] Pantoprazole Sodium [Protonix] 40 mg PO DAILY 04/15/18 [History] Simvastatin [Zocor] 40 mg PO DAILY 04/15/18 [History] Sucralfate [Carafate] 1 gm PO QIDAC 04/15/18 [History] Warfarin perPT [Coumadin perPT] 2 mg PO DAILY 04/15/18 [History] Nystatin Cream [Mycostatin Cream] 1 appl TP TID #1 tube 04/19/18 [Rx] OXYCODONE Oral CONC [Oxycodone Oral Conc] 5 mg SL Q12H PRN 1 Days #2 oral.syg 04/19/18 [Rx] Allergies/Adverse Reactions: Allergy/AdvReac Type Severity Reaction Status Date / Time lidocaine Allergy See Verified 04/17/18 09:26 Comments - Respiratory Orders Smoking Cessation: Smoking cessation has been advised. For more information, call the [place] Tobacco Quit Line at 3-065-ZYKT-NOW. CERTIFICATION: I certify that the transfer of the above named patient to an Extended Care Facility is necessary for the continuing treatment of the diagnosis listed. The above information is true and accurate reflection of patient's current condition. Confidential - Redisclosure prohibited without a patient's written consent.
--- NOTE | 2018-04-19 16:13 | Physician Discharge Referral ---
<JesustiffanieAngusKirstin L - Last Filed: 04/19/18 16:11> ExtendedCare Referral Info Transfer To: SNF Provider in Charge: Guero Ovalle Provider in Charge after Transfer: PCP Institutional Level of Care: Skilled - Diagnosis (1) A-fib Priority: Secondary Status: Acute (2) Anemia Priority: Secondary Status: Acute (3) Cardiomyopathy Priority: Secondary Status: Acute (4) Chest pain Priority: Primary Status: Resolved (5) Diabetes Priority: Secondary Status: Chronic (6) Elevated INR Priority: Secondary Status: Acute (7) Elevated troponin Priority: Secondary Status: Acute (8) History of recent surgery Priority: Primary Status: Acute (9) Non-pressure chronic ulcer of other part of left foot with fat layer exposed Priority: Primary Status: Acute Prognosis: Good Aware of Diagnosis: Patient, Family Aware of Prognosis: Patient, Family - Transfer Medications Prescriptions: Nystatin Cream [Mycostatin Cream] 1 appl TP TID #1 tube OXYCODONE Oral CONC [Oxycodone Oral Conc] 5 mg SL Q12H PRN 1 Days #2 oral.syg PRN Reason: Severe Pain Home Medications: Dorzolamide/Timolol [Cosopt] 1 drop OP BID 02/23/17 [History] Simvastatin [Zocor] 40 mg PO HS 02/23/17 [History] Ergocalciferol (VITAMIN D2) [Vitamin D2] 50,000 unit PO QWEEK 03/25/18 [History] Cefazolin Sodium/D5w [Cefazolin 2 G/50 ml-D5w Bag] 2 gm IV Q8HR 49 Days #147 piggyback 04/03/18 [Rx] Insulin LISPRO [HumaLOG] 0 units SQ HS vial 04/03/18 [Rx] Insulin LISPRO [HumaLOG] 0 units SQ TIDAC vial 04/03/18 [Rx] Insulin NPH/REG 70/30 (HUMAN) [Humulin 70/30 Vial] 20 unit SQ BIDAC [id number] 04/03/18 [Rx] Metoprolol [Lopressor] 12.5 mg PO BID 30 Days #60 tablet 04/03/18 [Rx] Pantoprazole Sodium [Protonix] 40 mg PO DAILY 30 Days #30 tab 04/03/18 [Rx] Sucralfate [Carafate] 1 gm PO 0730,1630 30 Days #60 tablet 04/03/18 [Rx] Acetaminophen [Tylenol] 650 mg PO Q4H PRN 04/15/18 [History] Cefazolin Sodium/D5w [Cefazolin 2 G/50 ml-D5w Bag] 1 vial IV DAILY 04/15/18 [History] Dorzolamide/Timolol/Pf [Dorzolamide-Timolol 2%-0.5%] 1 drop OP BID 04/15/18 [History] Ergocalciferol (VITAMIN D2) [Drisdol (50,000 Unit)] 50,000 unit PO MO 04/15/18 [History] Insulin NPH Hum/Reg Insulin Hm [Humulin 70-30 Vial] 20 unit SQ BID 04/15/18 [History] Metoprolol [Lopressor] 12.5 mg PO BID 04/15/18 [History] Nitroglycerin [Nitrostat] 0.4 mg SL PRN PRN 04/15/18 [History] Ondansetron HCl [Zofran] 4 mg PO Q4H PRN 04/15/18 [History] Pantoprazole Sodium [Protonix] 40 mg PO DAILY 04/15/18 [History] Simvastatin [Zocor] 40 mg PO DAILY 04/15/18 [History] Sucralfate [Carafate] 1 gm PO QIDAC 04/15/18 [History] Warfarin perPT [Coumadin perPT] 2 mg PO DAILY 04/15/18 [History] Nystatin Cream [Mycostatin Cream] 1 appl TP TID #1 tube 04/19/18 [Rx] OXYCODONE Oral CONC [Oxycodone Oral Conc] 5 mg SL Q12H PRN 1 Days #2 oral.syg 04/19/18 [Rx] Allergies/Adverse Reactions: Allergy/AdvReac Type Severity Reaction Status Date / Time lidocaine Allergy See Verified 04/17/18 09:26 Comments - Respiratory Orders Smoking Cessation: Smoking cessation has been advised. For more information, call the [place] Tobacco Quit Line at 2-265-GXKZNOW. CERTIFICATION: I certify that the transfer of the above named patient to an Extended Care Facility is necessary for the continuing treatment of the diagnosis listed. The above information is true and accurate reflection of patient's current condition. Confidential - Redisclosure prohibited without a patient's written consent. <Guero Ovalle A - Last Filed: 04/19/18 16:17> - Diagnosis (1) Non-pressure chronic ulcer of other part of left foot with fat layer exposed Status: Acute (2) Atrial fibrillation Priority: Secondary Status: Chronic (3) Anemia Priority: Secondary Status: Chronic (4) CAD (coronary artery disease) Priority: Secondary Status: Chronic (5) Diabetes Status: Chronic (6) Peripheral vascular disease Priority: Secondary Status: Chronic (7) A-fib Status: Acute - Respiratory Orders Oxygen / L per min (Maintain saturation greater than 90%) Smoking Cessation: Smoking cessation has been advised. For more information, call the [place] Tobacco Quit Line at 6-910-JADY-NOW. - Lab Orders Lab Orders: CBC, Martín 17 - Ancillary Orders May use pressure relief devices daily prn, May consult with Dentist, Preschool Director, Polisher Balance Screwhead PRN - Advance Directives Code Status: Full Code - Mobility Orders Chair, Ambulate - Rehabiliation Orders Rehab Potential: Fair Rehab Orders: Evaluation for Physical Therapy, Evaluation for Occupational Therapy - Treatments Skin tear care topically daily PRN per policy, May check for fecal impaction rectally daily PRN, Fleet enema rectally every other day PRN cleansing purposes List/Other: Applied Adaptic to wound bed. Applied black foam over wound and applied wound VAC. Covered adaptic to the incision sites. Covered dressing with Kerlix. Placed harris boot to LLE. Please make sure patient wears at all times while in bed. Change VAC Tuesday. Wound vac pressure 150 - Diet Orders No Concentrated Sweets, Cardiac CERTIFICATION: I certify that the transfer of the above named patient to an Extended Care Facility is necessary for the continuing treatment of the diagnosis listed. The above information is true and accurate reflection of patient's current condition. Confidential - Redisclosure prohibited without a patient's written consent.
[2018-04-19] MEDS ORDERED: *HR* Warfarin 2.5 MG TABLET PO ONE (18:00)
== END 2018-04-19 16:58 | DRG 264 ==
LOC: EMEROOARM 21:11 → 3BNU 21:11 → SUATTDRO 04-16 16:36 → MERGE 04-16 16:36
PROVIDERS: ADMIT Pediatrics; ATTEND Internal Medicine

== ENCOUNTER 2018-05-04 11:03 | Inpatient (IN) ==
--- NOTE | 2018-05-04 11:25 | Emergency Department Note ---
Disposition Clinical Impression: Altered mental status Disposition: Admitted As Inpatient Condition: Fair Time of Disposition: 13:05 Female Urogenital HPI - General Chief complaint: ED Urogenital-Female Stated complaint: UTI/AMS Time Seen by Provider: 05/04/18 11:05 Source: patient, family Mode of arrival: EMS Limitations: no limitations Nursing Notes Reviewed: Yes Vital Signs Reviewed: Yes - History of Present Illness HPI Narrative: 78-year-old female presented from the care facility for concerns for a UTI with delirium. History was collected from the at bedside, the patient, and records from [facility]. Presented to the patient is currently being treated for wound on her amputated left foot, she has a midline in place on her right arm which is recently switched from her left arm due to concerns of leaking. He states that the patient went approximately 3 days without antibiotic therapy. Yesterday morning the patient was reportedly agitated, delirious, and combative. A urinalysis was performed which showed evidence for possible UTI. They reportedly tried to treat the UTI, but the patient became combative and they were unable to administer the antibiotics. Reportedly the patient was aggressive and swinging as staff members as she believed that they were trying to kill her. Patient does follow with the wound clinic in her wound was bandaged yesterday and was reportedly clean. Pt Subjective Complaint: "UTI" Onset (ago): day(s) Severity: moderate - Related Data Home Medications Medication Instructions Recorded Confirmed Simvastatin [Zocor] 40 mg PO HS 02/23/17 05/04/18 Ergocalciferol (VITAMIN D2) 50,000 unit PO QWEEK 03/25/18 03/28/18 [Vitamin D2] Acetaminophen [Tylenol] 650 mg PO Q4H PRN 04/15/18 04/15/18 Cefazolin Sodium/D5w [Cefazolin 2 1 vial IV DAILY 04/15/18 04/15/18 G/50 ml-D5w Bag] Dorzolamide/Timolol/Pf 1 drop OP BID 04/15/18 04/15/18 [Dorzolamide-Timolol 2%-0.5%] Insulin NPH Hum/Reg Insulin Hm 20 unit SQ BID 04/15/18 04/15/18 [Humulin 70-30 Vial] Nitroglycerin [Nitrostat] 0.4 mg SL PRN PRN 04/15/18 04/15/18 Warfarin perPT [Coumadin perPT] 2 mg PO DAILY 04/15/18 05/04/18 Previous Rx's Medication Instructions Recorded Insulin LISPRO [HumaLOG] 0 units SQ TIDAC vial 04/03/18 Nystatin Cream [Mycostatin Cream] 1 appl TP TID #1 tube 04/19/18 Allergies Allergy/AdvReac Type Severity Reaction Status Date / Time lidocaine Allergy See Verified 04/17/18 09:26 Comments Constitutional: Denies: fever, chills, weakness Cardiovascular: Denies: chest pain Respiratory: Denies: dyspnea Gastrointestinal: Denies: abdominal pain, nausea, vomiting Genitourinary: Denies: dysuria, frequency, hematuria Musculoskeletal: Reports: back pain Neurological: Reports: confusion. Denies: weakness Past Medical History - Past Medical History Medical history: Reports: diabetes, renal disease, hypertension, coronary artery disease Surgical history: Reports: coronary bypass (CABG), orthopedic, other, splenectomy, appendectomy Psychiatric history: Reports: no psych history CHIEF ARCHITECT history: Reports: no CHIEF ARCHITECT history - Social History Smoking Status: Never smoker Smokeless Tobacco Status: No Alcohol use: Reports: none Drug use: Reports: none Physical Exam - General Limitations: altered mental status General appearance: other (Alert and oriented to self and location, not alert to date or month) - Head Head exam: atraumatic, normocephalic - Chest Chest inspection: Present: normal inspection, symmetric chest wall rise - Respiratory Respiratory exam: Present: normal lung sounds bilaterally. Absent: wheezes - Cardiovascular Cardiovascular exam: Present: regular rate, normal rhythm, +S1, +S2 - Abdominal Exam Abdominal exam: Present: soft, Non-Tender. Absent: guarding, rebound, rigidity - Extremities Exam Extremities exam: Present: other (Bandaged wound from prior repetition on the left foot) - Back Exam Back exam: Present: other. Absent: CVA tenderness (R) (No current CVA tenderness, the patient does state that she had right flank pain yesterday), CVA tenderness (L) - Neurological Exam Neurological exam: Present: alert, other (Oriented 2) - Psychiatric Psychiatric exam: Present: agitated - Skin Skin exam: Present: warm, dry, intact Course Course Narrative: 12:16 Urinalysis in the ED suggestive of a UTI. White blood cell count is normal, patient does have anemia that is chronic. Lactic acid within range. Ordered 2 g cefepime. 12:58 Spoke with hospitalist, Dr. Corona, regarding admission and he accepted the admission and requested urine culture to be drawn. Vital Signs Temperature 98.8 F 05/04/18 11:06 Pulse Rate 89 05/04/18 11:06 Respiratory Rate 20 05/04/18 11:06 Blood Pressure 157/82 05/04/18 11:06 O2 Sat by Pulse Oximetry 98 05/04/18 11:06 Temperature 98.8 F 05/04/18 11:06 Pulse Rate 76 05/04/18 14:19 Respiratory Rate 14 05/04/18 14:19 Blood Pressure 140/74 05/04/18 14:19 O2 Sat by Pulse Oximetry 100 05/04/18 14:19 Oxygen Delivery Oxygen Delivery Room Air Urogenital-Female - MDM Narrative Medical decision making narrative: 78-year-old female presented from [facility] for concerns of delirium and UTI. Per family patient was found altered yesterday morning, agitated, and combative. UA was drawn which was indicative of a UTI. There unable to administer antibiotics as patient was combative. Patient has a history of the left foot amputation and is currently being followed by wound care for wound on that same foot. She has a midline in place in the right arm for daily ceftriaxone therapy. Per family the patient did not receive ceftriaxone for approximately 3 days as her midline was leaking and had to be replaced. Upon arrival to the ED patient was alert and oriented 2, but not to time of the year. She was mildly agitated, but not combative. Labs show evidence of UTI, but no elevated white count and she is afebrile. Patient received 2 g cefepime and will be admitted to the hospital for observation. Urine culture is pending. Hospitalist accepted patient. - Differential Diagnosis Likely: urinary tract infection - Medical Records Medical records reviewed: Yes I reviewed the patient's medical records. - Lab Data Lab results reviewed: Yes I reviewed the patient's lab results. Result diagrams: 05/04/18 11:19 05/04/18 11:19 Lab Results 05/04/18 05/04/18 05/04/18 Range/Units 11:19 11:19 11:19 WBC 8.7 (4.3-11.1) K/mcL RBC 3.50 L (3.82-4.97) M/mcL Hgb 9.7 L (11.5-15.4) g/dL Hct 31.3 L (35.3-44.9) % MCV 89.4 (83.0-100.0) fL MCH 27.7 L (28.0-33.3) pg MCHC 31.0 L (31.6-35.5) g/dL RDW 17.4 H (11.5-14.5) % Plt Count 311 (140-400) K/mcL MPV 12.5 H (9.4-12.4) fL Immature Gran % 0.6 (0-4) % Seg Neutrophils % 77.9 % Lymphocytes % 13.6 % Monocytes % 6.5 % Eosinophils % 0.6 % Basophils % 0.8 % Neutrophils # 6.8 (1.6-8.9) K/mcL Lymphocytes # 1.2 (0.6-4.6) K/mcL Monocytes # 0.6 (0.0-1.3) K/mcL Eosinophils # 0.1 (0.0-0.6) K/mcL Basophils # 0.1 (0.0-0.2) K/mcL ESR (0-15) mm/hr Sodium 137 (136-145) mEq/L Potassium 3.7 (3.5-5.1) mEq/L Chloride 103 (98-107) mEq/L Carbon Dioxide 21 L (23-29) mEq/L BUN 32 H (8-23) mg/dL Creatinine 0.97 (0.60-1.20) mg/dL Est GFR ( Amer) > 60 (> 60) Est GFR (Non-Af Amer) 55 L (> 60) BUN/Creatinine Ratio 33 H (6-26) Glucose 301 H (70-105) mg/dL Calculated Osmolality 302 H (280-300) Lactic Acid 1.9 (0.5-2.2) mmol/L Calcium 8.7 (8.6-10.3) mg/dL Ammonia (16-53) mcmol/L C-Reactive Protein (Less than 10) mg/L Urine Color (Yellow) Urine Clarity (Clear) Urine pH (5.0-8.0) pH Units Ur Specific [place] (1.010-1.025) Urine Protein (Neg-Trace) mg/dL Urine Glucose (UA) (Normal) mg/dL Urine Ketones (Negative) mg/dL Urine Blood (Negative) Urine Nitrite (Negative) Urine Bilirubin (Negative) Urine Urobilinogen (Normal) mg/dL Ur Leukocyte Esterase (Negative) Urine Microscopic WBC (0-3) per hpf Ur Squamous Epith Cells (None-Few) per lpf Urine Bacteria (None-Few) per hpf Ur Culture Indicated? (NO) 05/04/18 05/04/18 05/04/18 Range/Units 11:45 14:04 14:04 WBC (4.3-11.1) K/mcL RBC (3.82-4.97) M/mcL Hgb (11.5-15.4) g/dL Hct (35.3-44.9) % MCV (83.0-100.0) fL MCH (28.0-33.3) pg MCHC (31.6-35.5) g/dL RDW (11.5-14.5) % Plt Count (140-400) K/mcL MPV (9.4-12.4) fL Immature Gran % (0-4) % Seg Neutrophils % % Lymphocytes % % Monocytes % % Eosinophils % % Basophils % % Neutrophils # (1.6-8.9) K/mcL Lymphocytes # (0.6-4.6) K/mcL Monocytes # (0.0-1.3) K/mcL Eosinophils # (0.0-0.6) K/mcL Basophils # (0.0-0.2) K/mcL ESR 56 H (0-15) mm/hr Sodium (136-145) mEq/L Potassium (3.5-5.1) mEq/L Chloride (98-107) mEq/L Carbon Dioxide (23-29) mEq/L BUN (8-23) mg/dL Creatinine (0.60-1.20) mg/dL Est GFR ( Amer) (> 60) Est GFR (Non-Af Amer) (> 60) BUN/Creatinine Ratio (6-26) Glucose (70-105) mg/dL Calculated Osmolality (280-300) Lactic Acid (0.5-2.2) mmol/L Calcium (8.6-10.3) mg/dL Ammonia 43 (16-53) mcmol/L C-Reactive Protein (Less than 10) mg/L Urine Color Yellow (Yellow) Urine Clarity Cloudy A (Clear) Urine pH 5.0 (5.0-8.0) pH Units Ur Specific [place] 1.021 (1.010-1.025) Urine Protein 100 H (Neg-Trace) mg/dL Urine Glucose (UA) 250 H (Normal) mg/dL Urine Ketones 15 H (Negative) mg/dL Urine Blood Large H (Negative) Urine Nitrite Negative (Negative) Urine Bilirubin Negative (Negative) Urine Urobilinogen Normal (Normal) mg/dL Ur Leukocyte Esterase Large H (Negative) Urine Microscopic WBC TNTC H (0-3) per hpf Ur Squamous Epith Cells Many H (None-Few) per lpf Urine Bacteria Present (None-Few) per hpf Ur Culture Indicated? NO. A (NO) 05/04/18 Range/Units 14:04 WBC (4.3-11.1) K/mcL RBC (3.82-4.97) M/mcL Hgb (11.5-15.4) g/dL Hct (35.3-44.9) % MCV (83.0-100.0) fL MCH (28.0-33.3) pg MCHC (31.6-35.5) g/dL RDW (11.5-14.5) % Plt Count (140-400) K/mcL MPV (9.4-12.4) fL Immature Gran % (0-4) % Seg Neutrophils % % Lymphocytes % % Monocytes % % Eosinophils % % Basophils % % Neutrophils # (1.6-8.9) K/mcL Lymphocytes # (0.6-4.6) K/mcL Monocytes # (0.0-1.3) K/mcL Eosinophils # (0.0-0.6) K/mcL Basophils # (0.0-0.2) K/mcL ESR (0-15) mm/hr Sodium (136-145) mEq/L Potassium (3.5-5.1) mEq/L Chloride (98-107) mEq/L Carbon Dioxide (23-29) mEq/L BUN (8-23) mg/dL Creatinine (0.60-1.20) mg/dL Est GFR ( Amer) (> 60) Est GFR (Non-Af Amer) (> 60) BUN/Creatinine Ratio (6-26) Glucose (70-105) mg/dL Calculated Osmolality (280-300) Lactic Acid (0.5-2.2) mmol/L Calcium (8.6-10.3) mg/dL Ammonia (16-53) mcmol/L C-Reactive Protein 34 H (Less than 10) mg/L Urine Color (Yellow) Urine Clarity (Clear) Urine pH (5.0-8.0) pH Units Ur Specific [place] (1.010-1.025) Urine Protein (Neg-Trace) mg/dL Urine Glucose (UA) (Normal) mg/dL Urine Ketones (Negative) mg/dL Urine Blood (Negative) Urine Nitrite (Negative) Urine Bilirubin (Negative) Urine Urobilinogen (Normal) mg/dL Ur Leukocyte Esterase (Negative) Urine Microscopic WBC (0-3) per hpf Ur Squamous Epith Cells (None-Few) per lpf Urine Bacteria (None-Few) per hpf Ur Culture Indicated? (NO) Attestation Statement - Attestation Attestation: I, Sebastian Denny, examined this patient and my medical decision-making was reviewed with the CLAMPER/PA/Advanced Practice Nurse/Resident Physician. I agree with the documented findings, disposition and treatment plan as described except to the extent set forth below. 78-year-old female presents emergency Department with altered mental status. Patient has been taking ceftriaxone for left lower extremity wound over the past month. She has not taken over the past 3 days. She was seen by wound care and infectious disease yesterday who both evaluated the left lower extremity and stated that it was healing properly without obvious infection. Patient has no pain in the left lower extremity. Patient was diagnosed with a urinary tract infection yesterday. Her PICC line was changed from the left arm to the right upper extremity yesterday. Patient had delirium today and was refusing medications at the [facility] facility. She was striking out and hitting family and staff at the facility. She is brought to the emergency department for further evaluation of her delirium. She continues to have a urinary tract infection. Cultures are pending. She will be started on cefepime in the emergency department and admitted for further care and evaluation.
[2018-05-04 11:37] LABS: Basophils # 0.1 K/mcL (0.0-0.2); Basophils % 0.8 %; Eosinophils # 0.1 K/mcL (0.0-0.6); Eosinophils % 0.6 %; Hematocrit 31.3 % (35.3-44.9); Hemoglobin 9.7 g/dL (11.5-15.4); Immature Granulocytes % 0.6 % (0-4); Lymphocytes # 1.2 K/mcL (0.6-4.6); Lymphocytes % 13.6 %; Mean Corpuscular Hemoglobin 27.7 pg (28.0-33.3); Mean Corpuscular Volume 89.4 fL (83.0-100.0); Mean Platelet Volume 12.5 fL (9.4-12.4); Monocytes # 0.6 K/mcL (0.0-1.3); Monocytes % 6.5 %; Neutrophils # 6.8 K/mcL (1.6-8.9); Platelet Count 311 K/mcL (140-400); Red Cell Distribution Width 17.4 % (11.5-14.5); Segmented Neutrophils % 77.9 %
[2018-05-04 11:50] LABS: BUN/Creatinine Ratio 33 (6-26); Blood Urea Nitrogen 32 mg/dL (8-23); Calcium 8.7 mg/dL (8.6-10.3); Carbon Dioxide 21 mEq/L (23-29); Chloride 103 mEq/L (98-107); Glucose 301 mg/dL (70-105); Osmolality,Calculated 302 (280-300); Potassium 3.7 mEq/L (3.5-5.1); Sodium 137 mEq/L (136-145); eGFR For Non-African Americans 55 (> 60)
[2018-05-04 11:58] LABS: Bilirubin,Urine Negative (Negative); Blood,Urine Large (Negative); Color,Urine Yellow (Yellow); Glucose,Urine (UA) 250 mg/dL (Normal); Ketones,Urine 15 mg/dL (Negative); Leukocyte Esterase,Urine Large (Negative); Nitrite,Urine Negative (Negative); Protein,Urine 100 mg/dL (Neg-Trace); Specific Gravity,Urine 1.021 (1.010-1.025); Urobilinogen,Urine Normal (Normal)
[2018-05-04 12:01] LABS: Squamous Epithelial Cell,Urine Many per lpf (None-Few); WBC,Urine TNTC per hpf (0-3)
[2018-05-04 12:03] LABS: Clarity,Urine Cloudy (Clear)
[2018-05-04 12:19] LABS: Bacteria,Urine Present per hpf (None-Few)
[2018-05-04] MEDS ORDERED: Cefepime HCl 2,000 MG in Water for inj. (sterile) 20 ML 20 ML IVP ONE (12:30)
[2018-05-04] MEDS ORDERED: Naloxone 0.4 MG/ML INJ IVP PRN (13:29)
[2018-05-04] MEDS ORDERED: Dextrose Gel 15 GM/37.5 ML TUBE PO PRN ×2 (13:30)
[2018-05-04] MEDS ORDERED: D5% in Water 1,000 ML IVC PRN (13:30)
[2018-05-04] MEDS ORDERED: *HR* Dextrose 50 % in Water (Syg) 50 ML SYRINGE IVP PRN (13:30)
--- NOTE | 2018-05-04 13:41 | Internal Med History&Physical ---
Date of Encounter: 05/04/18 Time of Encounter: 13:38 Internal Medicine - H&P: HPI Chief complaint: confusion Admitted From: Long-term Nursing Facility Plans for Post Hospital Care: Transfer [employer] Care History of present illness: Ms. Kaplan is a 78 year old female with PMH A. fib on Coumadin, recent osteomyelitis on long-term IV ATB, cardiomyopathy and anemia presented to [facility] on 05/04/2018 from [facility] with acute confusion. She was placed in observation status for further workup and treatment. Information obtained from chart review and only as patient is alert to self and place only and acutely confused. states he last seen patient yesterday evening around 7:30 to 8:00 PM and she was in her normal state of mind which is alert and oriented 4. said he was called by the [facility] this morning and was told that patient was confused and not acting right. On my exam patient is alert and oriented, she can answer her name and date of , place and president correctly however she is obviously confused and appears to be somewhat disoriented and aggressive. She says she heard people talking in the middle the night at the [facility] and she heard more than she should have. She does not elaborate more but she goes on to tell me that people were sticking needles into her stomach and that there was a alliance party with people making fun of her all around her. She is quite upset on exam and almost appears paranoid. says patient has gotten confused before with UTIs but never this severe. 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, blind left eye Psychiatric history: no psych history - Past Surgical History Surgical History: coronary bypass (CABG), orthopedic, other, splenectomy, appendectomy Additional surgical history: broke left foot (screws in left foot) left foot amputation, quadruple bypass - Social History Smoking Status: Never smoker Smokeless Tobacco Status: No Alcohol use: none Drug use: none - Family History Mother Living Status: Hx Family Cardiac Disorders: No Hx Family Respiratory Disorders: No Hx Family Cancer: Yes (Uterine Cancer) Hx Family GI Disorders: No Hx Family Endocrine Disorder: No Hx Family Neuromuscular Disorders: No Hx Family Neurologic Disorders: No Hx Family HEENT Disorders: No Hx Family Autoimmune Disorders: No Father Adopted: No Living Status: Hx Family Cardiac Disorders: No Hx Family Respiratory Disorders: No Hx Family Cancer: Yes Hx Family Endocrine Disorder: No Hx Family Neuromuscular Disorders: No Hx Family Neurologic Disorders: No Hx Family HEENT Disorders: No Hx Family Autoimmune Disorders: No Internal Medicine - H&P: Meds Simvastatin [Zocor] 40 mg PO HS 02/23/17 [History] Ergocalciferol (VITAMIN D2) [Vitamin D2] 50,000 unit PO QWEEK 03/25/18 [History] Insulin LISPRO [HumaLOG] 0 units SQ TIDAC vial 04/03/18 [Rx] Acetaminophen [Tylenol] 650 mg PO Q4H PRN 04/15/18 [History] Cefazolin Sodium/D5w [Cefazolin 2 G/50 ml-D5w Bag] 1 vial IV DAILY 04/15/18 [History] Dorzolamide/Timolol/Pf [Dorzolamide-Timolol 2%-0.5%] 1 drop OP BID 04/15/18 [History] Insulin NPH Hum/Reg Insulin Hm [Humulin 70-30 Vial] 20 unit SQ BID 04/15/18 [History] Nitroglycerin [Nitrostat] 0.4 mg SL PRN PRN 04/15/18 [History] Warfarin perPT [Coumadin perPT] 2 mg PO DAILY 04/15/18 [History] Nystatin Cream [Mycostatin Cream] 1 appl TP TID #1 tube 04/19/18 [Rx] Allergy/AdvReac Type Severity Reaction Status Date / Time lidocaine Allergy See Verified 04/17/18 09:26 Comments ROS unobtainable: other (A 12 point ROS was completed and negative however patient is acutely confused therefore unsure how accurate answers/information are) All Systems PM: A 10-system review of systems was performed and is negative for pertinent findings except as documented above in the HPI. - Constitutional Constitutional: no chills, no fever(s), no night sweats - EENT Eyes: no change in vision, no discharge, no pain, no photophobia Ears: no ear discharge, no ear pain, no tinnitus Nose, mouth and throat: no dysphagia, no nasal discharge, no neck pain, no sore throat - Cardiovascular Cardiovascular ROS IM: no chest pain, no diaphoresis, no dyspnea, no lightheadedness, no palpitations, no syncope - Respiratory Respiratory: no cough, no dyspnea, no wheezing, no excessive phlegm production - Gastrointestinal Gastrointestinal: no abdominal pain, no diarrhea, no hematemesis, no hematochezia, no melena, no nausea, no vomiting - Genitourinary Genitourinary: no change in urinary stream, no dysuria, no flank pain, no hematuria - Musculoskeletal Musculoskeletal ROS IM: no numbness, no tingling - Integumentary Integumentary IM: no rash, no unusual bruising - Neurological Neurological ROS: no confusion, no convulsions, no focal weakness, no numbness, no tingling, no tremor(s) - Hematologic/Lymphatic Hematologic/Lymphatic: no easy bruising - Constitutional Vitals: Temp Pulse Resp BP Pulse Ox 98.8 F 108 24 154/88 100 05/04/18 11:06 05/04/18 12:38 05/04/18 12:38 05/04/18 12:38 05/04/18 12:38 General appearance: Present: A&O X 2, mild distress, A&O X 3, morbidly obese Exam: . - Head Head exam: Present: atraumatic, normocephalic - Eye Eye exam: Present: PERRL, conjuntiva pink, sclera anicteric Pupils: Present: PERRL - Neck Neck exam general surgery: Present: supple, trachea midline. Absent: lymphadenopathy - Respiratory Respiratory exam: Present: CTAB. Absent: accessory muscle use, rales, rhonchi, wheezes - Cardiovascular Cardiovascular exam: Present: RRR, +S1, +S2. Absent: diastolic murmur, gallop, rubs, systolic murmur - GI/Abdominal GI/Abdominal exam: Present: normal bowel sounds, soft, no peritoneal signs. Absent: distended, tenderness - Extremities Exam Extremities exam: Present: warm, radial pulses palpable and symmetrical. Absent: calf tenderness, cyanotic, pedal edema - Neurological Exam Neurological exam: Present: CN II-XII intact, no focal deficits. Absent: strengths equal and symetr throughout, pronater drift, facial droop, speech deficit Additional comments: RUE subtle weakness on post/pull - Psychiatric Psychiatric exam: Present: anxious - Skin Skin exam: Present: dry, intact Internal Med - H&P Results - Labs CBC & Chem 7: 05/04/18 11:19 05/04/18 11:19 Labs: Short CBC 05/04/18 Range/Units 11:19 WBC 8.7 (4.3-11.1) K/mcL Hgb 9.7 L (11.5-15.4) g/dL Hct 31.3 L (35.3-44.9) % Plt Count 311 (140-400) K/mcL Neutrophils # 6.8 (1.6-8.9) K/mcL BMP 05/04/18 11:19 Sodium 137 Potassium 3.7 Chloride 103 Carbon Dioxide 21 L BUN 32 H Creatinine 0.97 Glucose 301 H Calcium 8.7 Urine 05/04/18 Range/Units 11:45 Urine Color Yellow (Yellow) Urine Clarity Cloudy A (Clear) Urine pH 5.0 (5.0-8.0) pH Units Ur Specific [place] 1.021 (1.010-1.025) Urine Protein 100 H (Neg-Trace) mg/dL Urine Glucose (UA) 250 H (Normal) mg/dL - Assessment and plan (1) Acute metabolic encephalopathy Current Visit: Yes Status: Acute Assessment and plan: presented with acute confusion; baseline mentation alert and oriented per . Appears to be anxious, paranoid and delusional on exam. Possibly secondary to UTI. Check stat head CT and brain MRI. Treating UTI as noted below (2) Abnormal urinalysis Current Visit: Yes Status: Acute Assessment and plan: UA concerning for UTI. Continue IV ceftriaxone. Follow urine culture and narr ow accordingly. (3) Foot osteomyelitis, left Current Visit: Yes Status: Acute Assessment and plan: s/p emergent partial left foot amputation on 03/25/2018 for severe and extensive gas gangrene infection per Dr. Ayers. S/p surgical revision on 03/29/18 and wound graft 04/18/2018. Follows with ID, Podiatry and Wound care outpatient. Seen by ID on 05/03/2018 who recommended continuing ceftriaxone 2 g IV daily through 05/10/18. Will consult podiatry for wound care. CRP and sed rate pending Qualifiers: Osteomyelitis type: chronic multifocal Qualified Code(s): M86.372 - Chronic multifocal osteomyelitis, left ankle and foot (4) A-fib Current Visit: No Status: Chronic Assessment and plan: per hx. Rate controlled. Not on rate controlling agent per home medication list. Cont home coumadin Qualifiers: Atrial fibrillation type: persistent Qualified Code(s): I48.1 - Persistent atrial fibrillation (5) Cardiomyopathy Current Visit: No Status: Chronic Assessment and plan: per hx. 04/16/2018 EF 20-25% and severe left diastolic dysfunction (previous EF 40%). Was evaluated by Cardiology during 04/15/2018 hospitalization and medical management was recommended time. Will need repeat TTE in 3 months to re- evaluate EF; if remains less than 35% then ICD evaluation will be considered per most recent cardiology evaluation. With lower extremity edema on exam but overall appears compensated. Qualifiers: Cardiomyopathy type: ischemic Qualified Code(s): I25.5 - Ischemic cardiomyopathy (6) DVT prophylaxis Current Visit: No Status: Acute Assessment and plan: Coumadin - Time Spent With Patient Total time spent is greater than 50% in coordination of care (as documented) at patient's floor/unit and/or counseling patient:
[2018-05-04] MEDS ORDERED: Cefepime HCl 1,000 MG in 0.9 % Sodium Chloride Mini Bag 100 ML IVPB SCH (16:00)
[2018-05-04 17:25] LABS: INR 2.4; Prothrombin Time 27.5 Seconds (9.4-12.1)
[2018-05-04] MEDS ORDERED: Warfarin perPT PO PRN (18:00)
[2018-05-04] MEDS: Insulin LISPRO 300 UNITS/3 ML VIAL SQ SCH ×2 (18:49→21:08)
[2018-05-04] MEDS: *HR* Warfarin 2 MG TABLET PO SCH (23:01)
[2018-05-04] MEDS: Nystatin POWDER 30 GM BOTTLE TP SCH (23:55)
--- NOTE | 2018-05-05 02:22 | Event Note ---
Date of Encounter: 05/05/18 Time of Encounter: 02:21 Podiatry consult to be followed up on by krista team d/t no call being placed at 02:21 a.m.
[2018-05-05] MEDS ORDERED: *HR* OxyCODONE ER (12 HR) 10 MG TABLET PO SCH (06:00)
[2018-05-05] MEDS ORDERED: *HR* OxyCODONE Immed Rel 5 MG TABLET PO PRN (06:00)
[2018-05-05 06:49] LABS: Hematocrit 29.3 % (35.3-44.9); Hemoglobin 9.1 g/dL (11.5-15.4); Mean Corpuscular HGB Conc 31.1 g/dL (31.6-35.5); Mean Corpuscular Hemoglobin 27.8 pg (28.0-33.3); Mean Corpuscular Volume 89.6 fL (83.0-100.0); Mean Platelet Volume 12.6 fL (9.4-12.4); Platelet Count 299 K/mcL (140-400); Red Blood Count 3.27 M/mcL (3.82-4.97); Red Cell Distribution Width 17.7 % (11.5-14.5)
[2018-05-05 06:57] LABS: INR 2.5; Prothrombin Time 27.9 Seconds (9.4-12.1)
[2018-05-05 07:08] LABS: Alanine Aminotransferase 11 Units/L (7-52); Albumin 2.8 g/dL (3.5-5.7); Albumin/Globulin Ratio 0.7 (1.1-2.2); Alkaline Phosphatase 80 Units/L (34-104); Aspartate Amino Transferase 23 Units/L (13-39); BUN/Creatinine Ratio 34 (6-26); Blood Urea Nitrogen 32 mg/dL (8-23); Calcium 8.6 mg/dL (8.6-10.3); Carbon Dioxide 25 mEq/L (23-29); Chloride 107 mEq/L (98-107); Globulin 3.9 g/dL (2.4-3.5); Glucose 179 mg/dL (70-105); Osmolality,Calculated 301 (280-300); Potassium 3.7 mEq/L (3.5-5.1); Sodium 140 mEq/L (136-145); Total Protein 6.7 g/dL (6.4-8.9); eGFR For Non-African Americans 57 (> 60)
[2018-05-05] MEDS ORDERED: cefTRIAXone 1,000 MG in 0.9 % Sodium Chloride Mini Bag 100 ML IVPB SCH (09:00)
[2018-05-05] MEDS: cefTRIAXone 2,000 MG in Water for inj. (sterile) 20 ML 20 ML IVP SCH (09:07)
[2018-05-05] MEDS: Nystatin POWDER 30 GM BOTTLE TP SCH ×3 (09:07→21:28)
[2018-05-05] MEDS: Insulin LISPRO 300 UNITS/3 ML VIAL SQ SCH ×4 (09:10→21:27)
[2018-05-05] MEDS: Sucralfate 1 GM TABLET PO SCH ×2 (09:23→14:32)
[2018-05-05] MEDS: Metoprolol XL (24 HR) Succ 50 MG TAB.ER.24H PO SCH (09:23)
--- NOTE | 2018-05-05 09:30 | Electrocardiograph Report ---
[address] [place] [address] Test Date: 2018-05-04 Pat Name: Agnieszka Kaplan Department: EXAM2 Room: 3B41 Gender: F Parachute [place] [employer]: : 1940 Requested By: Lan Corona Order Number: [id number] Reading MD: Sebastian Hutchison Measurements Intervals [place] Rate: 89 P: 54 AL: 220 QRS: -89 QRSD: 133 T: 84 QT: 383 QTc: 466 Interpretive Statements Sinus rhythm Nonspecific IVCD with LAD Probable anteroseptal infarct, old BASELINE ARTIFACT Electronically Signed On 05-05-2018 9:28:55 EST by Sebastian Hutchison
--- NOTE | 2018-05-05 10:36 | Consult Note ---
Date of Encounter: 05/05/18 Time of Encounter: 10:33 Assessment & Recommendation (1) Delirium due to another medical condition Current visit: Yes Status: Acute Assessment & Recommendation: Would recommend low dose Haldol (2.5mg to start) every 6hrs prn to help with confusion. Can increase to 5mg at a time if she tolerates the medication. Would not expect delirium to resolve until medical issues improve but Haldol should help. Would avoid benzodiazepines and anything anticholinergic as these meds will only make confusion worse. History of Present Illness Requesting Physician: Lan Corona Reason for consult: confusion History of present illness: Ms. Kaplan is a 78 year old female admitted from an F. Multiple medical pro blems. Currently delirious. and son at bedside. They report client has been like this in past with previous UTIs/other medical problems but that this is the worst she has ever been. No mental health history of any kind. Client has multiple physical issues-all of which could be contributing to her delirium. Delirium unlikely to resolve until medical derangements improve but can treat her confusion with low dose Haldol to help. CC: Lan Corona Past Med Surg Social Fam HX - Past Medical History Medical history: diabetes, renal disease, hypertension, coronary artery disease - Past Psychiatric History Psychiatric history: Reports: no psych history Family psychiatric history: Unknown Family History of Suicide: Unknown - Past Surgical History Surgical History: coronary bypass (CABG), orthopedic, other, splenectomy, appendectomy - Social History Smoking Status: Never smoker Smokeless Tobacco Status: No Alcohol use: none Drug use: none - Family History Mother Living Status: Hx Family Cardiac Disorders: No Hx Family Respiratory Disorders: No Hx Family Cancer: Yes (Uterine Cancer) Hx Family GI Disorders: No Hx Family Endocrine Disorder: No Hx Family Neuromuscular Disorders: No Hx Family Neurologic Disorders: No Hx Family HEENT Disorders: No Hx Family Autoimmune Disorders: No Father Adopted: No Living Status: Hx Family Cardiac Disorders: No Hx Family Respiratory Disorders: No Hx Family Cancer: Yes Hx Family Endocrine Disorder: No Hx Family Neuromuscular Disorders: No Hx Family Neurologic Disorders: No Hx Family HEENT Disorders: No Hx Family Autoimmune Disorders: No Medications & Allergies Simvastatin [Zocor] 40 mg PO HS 02/23/17 [History] Ergocalciferol (VITAMIN D2) [Vitamin D2] 50,000 unit PO QWEEK 03/25/18 [History] Acetaminophen [Tylenol] 650 mg PO Q4H PRN 04/15/18 [History] Cefazolin Sodium/D5w [Cefazolin 2 G/50 ml-D5w Bag] 1 vial IV DAILY 04/15/18 [His tory] Dorzolamide/Timolol/Pf [Dorzolamide-Timolol 2%-0.5%] 1 drop RIGHT EYE BID 04/15/18 [History] Insulin NPH Hum/Reg Insulin Hm [Humulin 70-30 Vial] 20 unit SQ BID 04/15/18 [History] Nitroglycerin [Nitrostat] 0.4 mg SL PRN PRN 04/15/18 [History] Warfarin perPT [Coumadin perPT] 2 mg PO DAILY 04/15/18 [History] Nystatin Cream [Mycostatin Cream] 1 appl TP TID #1 tube 04/19/18 [Rx] Collagenase Oint [Santyl] 30 gm TP DAILY 05/04/18 [History] Lisinopril 2.5 mg PO DAILY 05/04/18 [History] Melatonin [Melatin] 6 mg PO HS PRN 05/04/18 [History] Methyl Salicylate/Menthol [Muscle Rub Cream] 1 applic TP TID 05/04/18 [History] Metoprolol Succinate 50 mg PO DAILY 05/04/18 [History] Ondansetron HCl [Zofran] 4 mg PO Q4H PRN 05/04/18 [History] Oxycodone HCl 5 mg PO Q12H PRN 05/04/18 [History] Pantoprazole Sodium [Protonix] 40 mg PO DAILY 05/04/18 [History] Sucralfate [Carafate] 1 gm PO BID 05/04/18 [History] Allergy/AdvReac Type Severity Reaction Status Date / Time lidocaine Allergy See Verified 04/17/18 09:26 Comments Review of Systems Constitutional: Reports: other Eyes: Denies: eye pain, vision change Ears, Nose, Throat: Denies: ear pain, throat pain, dental pain, hearing loss, congestion Cardiovascular: Denies: chest pain, palpitations, dyspnea on exertion Respiratory: Denies: cough, dyspnea, wheezes Gastrointestinal: Denies: abdominal pain, nausea, vomiting, diarrhea, constipation Genitourinary female: Reports: other Musculoskeletal: Reports: other Neurological: Denies: headache, weakness, numbness, memory loss Endocrine: Denies: fatigue, heat or cold intolerance Hematologic/Lymphatic: Denies: easy bruising, lymphadenopathy Allergic/Immunologic: Denies: urticaria, itchy eyes Psychiatry Exam - Constitutional Vitals: Temp Pulse Resp BP Pulse Ox 98.2 F 82 14 150/88 94 05/05/18 07:15 05/05/18 07:15 05/05/18 07:15 05/05/18 07:15 05/05/18 07:15 General appearance: unkempt - Musculoskeletal Gait: other Station: relaxed Strength & Tone: normal for patient - Psychiatric Patient Orientation: Yes Person Level of alertness: Alert Behavior: calm, cooperative Psychomotor activity: Normal Eye Contact: Maintains Eye Contact Mood Description: Anxious Affect description: congruent with mood Speech Volume: Normal Speech pattern: normal rate, normal rhythm, normal tone Language & Vocabulary: consistent with education Thought Process: Loose Associations Thought Content: No Suicidal ideation, No Homicidal ideation, No Overt delusions Perceptual Disturbances: Yes Reacting to internal stimuli Attention Span Ability: Unable to Focus, Unable to Sustain Attention Memory Description: Immediate Intact, Recent Impaired, Remote Intact Patient Reliability: Not Reliable Historian Fund of knowledge: Yes abstraction ability, Yes aware of current events Intelligence Estimate: Average Judgment: Limited Insight: Minimal Results - Labs Labs: Laboratory Last Values WBC 7.8 K/mcL (4.3-11.1) 05/05/18 04:00 RBC 3.27 M/mcL (3.82-4.97) L 05/05/18 04:00 Hgb 9.1 g/dL (11.5-15.4) L 05/05/18 04:00 Hct 29.3 % (35.3-44.9) L 05/05/18 04:00 MCV 89.6 fL (83.0-100.0) 05/05/18 04:00 MCH 27.8 pg (28.0-33.3) L 05/05/18 04:00 MCHC 31.1 g/dL (31.6-35.5) L 05/05/18 04:00 RDW 17.7 % (11.5-14.5) H 05/05/18 04:00 Plt Count 299 K/mcL (140-400) 05/05/18 04:00 MPV 12.6 fL (9.4-12.4) H 05/05/18 04:00 Immature Gran % 0.6 % (0-4) 05/04/18 11:19 Seg Neutrophils % 77.9 % 05/04/18 11:19 Lymphocytes % 13.6 % 05/04/18 11:19 Monocytes % 6.5 % 05/04/18 11:19 Eosinophils % 0.6 % 05/04/18 11:19 Basophils % 0.8 % 05/04/18 11:19 Neutrophils # 6.8 K/mcL (1.6-8.9) 05/04/18 11:19 Lymphocytes # 1.2 K/mcL (0.6-4.6) 05/04/18 11:19 Monocytes # 0.6 K/mcL (0.0-1.3) 05/04/18 11: Eosinophils # 0.1 K/mcL (0.0-0.6) 05/04/18 11:19 Basophils # 0.1 K/mcL (0.0-0.2) 05/04/18 11: ESR 56 mm/hr (0-15) H 05/04/18 14:04 PT 27.9 Seconds (9.4-12.1) H 05/05/18 04:00 INR 2.5 05/05/18 04:00 Sodium 140 mEq/L (136-145) 05/05/18 04:00 Potassium 3.7 mEq/L (3.5-5.1) 05/05/18 04:00 Chloride 107 mEq/L (98-107) 05/05/18 04:00 Carbon Dioxide 25 mEq/L (23-29) 05/05/18 04:00 BUN 32 mg/dL (8-23) H 05/05/18 04:00 Creatinine 0.95 mg/dL (0.60-1.20) 05/05/18 04:00 Est GFR ( Amer) > 60 (> 60) 05/05/18 04:00 Est GFR (Non-Af Amer) 57 (> 60) L 05/05/18 04:00 BUN/Creatinine Ratio 34 (6-26) H 05/05/18 04:00 Glucose 179 mg/dL (70-105) H 05/05/18 04:00 POC Glucose 313 mg/dL (70-99) H 05/04/18 20:24 Calculated Osmolality 301 (280-300) H 05/05/18 04:00 Lactic Acid 1.9 mmol/L (0.5-2.2) 05/04/18 11:19 Calcium 8.6 mg/dL (8.6-10.3) 05/05/18 04:00 Total Bilirubin 1.0 mg/dL (0.3-1.0) 05/05/18 04:00 AST 23 Units/L (13-39) 05/05/18 04:00 ALT 11 Units/L (7-52) 05/05/18 04:00 Alkaline Phosphatase 80 Units/L (34-104) 05/05/18 04:00 Ammonia 43 mcmol/L (16-53) 05/04/18 14:04 C-Reactive Protein 34 mg/L (Less than 10) H 05/04/18 14:04 Serum Total Protein 6.7 g/dL (6.4-8.9) 05/05/18 04:00 Albumin 2.8 g/dL (3.5-5.7) L 05/05/18 04:00 Globulin 3.9 g/dL (2.4-3.5) H 05/05/18 04:00 Albumin/Globulin Ratio 0.7 (1.1-2.2) L 05/05/18 04:00 Urine Color Yellow (Yellow) 05/04/18 11:45 Urine Clarity Cloudy (Clear) A 05/04/18 11:45 Urine pH 5.0 pH Units (5.0-8.0) 05/04/18 11:[address] 1.021 (1.010-1.025) 05/04/18 11:45 Urine Protein 100 mg/dL (Neg-Trace) H 05/04/18 11:45 Urine Glucose (UA) 250 mg/dL (Normal) H 05/04/18 11:45 Urine Ketones 15 mg/dL (Negative) H 05/04/18 11:45 Urine Blood Large (Negative) H 05/04/18 11:45 Urine Nitrite Negative (Negative) 05/04/18 11:45 Urine Bilirubin Negative (Negative) 05/04/18 11:45 Urine Urobilinogen Normal mg/dL (Normal) 05/04/18 11:45 Ur Leukocyte Esterase Large (Negative) H 05/04/18 11:45 Urine Microscopic WBC TNTC per hpf (0-3) H 05/04/18 11:45 Ur Squamous Epith Cells Many per lpf (None-Few) H 05/04/18 11:45 Urine Bacteria Present per hpf (None-Few) 05/04/18 11:45 Ur Culture Indicated? NO. (NO) A 05/04/18 11:45 - Impressions Impressions Head CT 05/04/18 13:28 IMPRESSION: No acute intracranial abnormality. Cerebral atrophy. Chronic small vessel ischemic changes. D/ / 05/04/2018 14:13:21 Jennifer Pham MD / [facility] Interpreting Provider: Jennifer Pham MD Brain MRI 05/04/18 13:36 IMPRESSION: Multifocal small-vessel ischemic change bilaterally with a few small prior infarcts. No acute infarct or hemorrhage. D/ / Mauricio Munoz / Mauricio Munoz Interpreting Provider: Mauricio Munoz Consult Discharge Plan - Plan Additional Instructions: Patient admitted to the hospital. Return to the ER for any new altered mental status, fevers, chills, discolored urine, pain, or any new symptoms that may arise. Referrals: Martín Odonnell MD [Primary Care Provider] -
[2018-05-05 13:04] LABS: Clarity,Urine Turbid (Clear); Color,Urine Orange (Yellow); Specific Gravity,Urine 1.016 (1.010-1.025)
[2018-05-05 13:16] LABS: Squamous Epithelial Cell,Urine Many per lpf (None-Few); WBC,Urine TNTC per hpf (0-3)
--- NOTE | 2018-05-05 13:23 | Internal Med Progress Note ---
Hospitalist Progress Note - Encounter Date of Encounter: 05/05/18 Time of Encounter: 13:21 - Subjective Interval History: Seen and examined at bedside. She is less confused this morning but does not appear to be back to baseline. Daughter at bedside and said patient was quite confused overnight and early this morning. Patient apparently took a small nap and woke up with somewhat improved mentation. Patient is alert and oriented on exam but forgetful. She has no complaints. Specifically denies chest pain, no shortness of breath. No abdominal pain, no nausea vomiting diarrhea. - Exam Vitals: Temp Pulse Resp BP Pulse Ox 98.2 F 75 16 131/77 94 05/05/18 11:18 05/05/18 11:18 05/05/18 11:18 05/05/18 11:18 05/05/18 11:18 Exam: General appearance: Present: A&O X 3, pleasant, no acute distress - Head Head exam: Present: atraumatic, normocephalic - Eye Eye exam: Present: PERRL, conjuntiva pink, sclera anicteric Pupils: Present: PERRL - Neck Neck exam general surgery: Present: supple, trachea midline. Absent: lymphadenopathy - Respiratory Respiratory exam: Present: chest wall tenderness, CTAB. Absent: accessory muscle use, rales, rhonchi, wheezes - Cardiovascular Cardiovascular exam: Present: RRR, +S1, +S2. Absent: diastolic murmur, gallop, rubs, systolic murmur - GI/Abdominal GI/Abdominal exam: Present: normal bowel sounds, soft, no peritoneal signs. Absent: distended, tenderness - Extremities Exam Extremities exam: Present: Left foot with dressing clean/dry/intact. Bilateral lower extremity pitting edema - Neurological Exam Neurological exam: Present: CN II-XII intact, oriented X 4 but forgetful - Skin Skin exam: Present: dry, intact - Assessment and Plan (1) Acute metabolic encephalopathy Current Visit: Yes Status: Acute Assessment and Plan: presented with acute confusion; baseline mentation alert and oriented per . Suspect she has some component of underlying dementia as daughter reports intermittent confusion over the last year. Head CT nonacute. Brain MRI with evidence of prior infarct otherwise nonacute. Acute metabolic encephalopathy likely multifactorial with underlying dementia with superimposed delirium with prolonged hospitalization/SNF stay and now with UTI. Evaluated by psychiatry who recommended low-dose of Haldol (2.5mg Q6H PRN to help with confusion; can increase to 5mg at a time if she tolerates the medication). Supportive care. Reorientation PRN, encourage sleep/wake cycle. (2) Abnormal urinalysis Current Visit: Yes Status: Acute Assessment and Plan: UA concerning for UTI. Urine culture not completed per [facility] lab protocol. Continue IV ceftriaxone. Repeat UA with C&S (3) Foot osteomyelitis, left Current Visit: Yes Status: Acute Assessment and Plan: s/p emergent partial left foot amputation on 03/25/2018 for severe and extensive gas gangrene infection per Dr. Ayers. S/p surgical revision on 03/29/18 and wound graft 04/18/2018. Follows with ID, Podiatry and Wound care outpatient. Seen by ID on 05/03/2018 who recommended continuing ceftriaxone 2 g IV daily through 05/10/18. CRP and sed rate elevated but lower than previous values. Podiatry managing dressing changes. (4) A-fib Current Visit: No Status: Chronic Assessment and Plan: per hx. Rate controlled. Not on rate controlling agent per home medication list. Cont home coumadin, BB (5) Cardiomyopathy Current Visit: No Status: Chronic Assessment and Plan: per hx. 04/16/2018 EF 20-25% and severe left diastolic dysfunction (previous EF 40%). Was evaluated by Cardiology during 04/15/2018 hospitalization and medical management was recommended time. Will need repeat TTE in 3 months to re-evalua te EF; if remains less than 35% then ICD evaluation will be considered per most recent cardiology evaluation. Appears decompensated with dyspnea and lower extremity edema on exam. Not on Lasix at home. Give one-time dose IV Lasix. Continue home ACEI and BB. CXR and BNP pending. Defer further diuresis to oncoming hospitalist as one-time dose IV Lasix may suffice. DVT Prophylaxis: Coumadin - Time Spent with Patient Total time spent is greater than 50% in coordination of care (as documented) at patient's floor/unit and/or counseling patient: 25 - 35 minutes Internal Medicine: Result - Labs CBC & Chem 7: 05/05/18 04:00 05/05/18 04:00 Labs: Short CBC 05/05/18 Range/Units 04:00 WBC 7.8 (4.3-11.1) K/mcL Hgb 9.1 L (11.5-15.4) g/dL Hct 29.3 L (35.3-44.9) % Plt Count 299 (140-400) K/mcL BMP 05/05/18 04:00 Sodium 140 Potassium 3.7 Chloride 107 Carbon Dioxide 25 BUN 32 H Creatinine 0.95 Glucose 179 H Calcium 8.6 Liver Function 05/05/18 Range/Units 04:00 Total Bilirubin 1.0 (0.3-1.0) mg/dL AST 23 (13-39) Units/L ALT 11 (7-52) Units/L Alkaline Phosphatase 80 (34-104) Units/L Albumin 2.8 L (3.5-5.7) g/dL Urine 05/05/18 Range/Units 12:34 Urine Color [place] A (Yellow) Urine Clarity Turbid A (Clear) Urine pH 5.0 (5.0-8.0) pH Units Ur Specific [place] 1.016 (1.010-1.025) Urine Glucose (UA) TNP - ABG Interpretation ABG results: PT/INR, D-dimer PT 27.9 Seconds (9.4-12.1) H 05/05/18 04:00 - Impressions Impressions Head CT 05/04/18 13:28 IMPRESSION: No acute intracranial abnormality. Cerebral atrophy. Chronic small vessel ischemic changes. D/ / 05/04/2018 14:13:21 Jennifer Pham MD / [facility] Interpreting Provider: Jennifer Pham MD Brain MRI 05/04/18 13:36 IMPRESSION: Multifocal small-vessel ischemic change bilaterally with a few small prior infarcts. No acute infarct or hemorrhage. D/ / Mauricio Munoz / Mauricio Munoz Interpreting Provider: Mauricio Munoz Consult Discharge Plan - Plan Additional Instructions: Patient admitted to the hospital. Return to the ER for any new altered mental status, fevers, chills, discolored urine, pain, or any new symptoms that may arise. Referrals: Martín Odonnell MD [Primary Care Provider] - (3) Foot osteomyelitis, left Qualifiers: Osteomyelitis type: chronic multifocal Qualified Code(s): M86.372 - Chronic multifocal osteomyelitis, left ankle and foot (4) A-fib Qualifiers: Atrial fibrillation type: persistent Qualified Code(s): I48.1 - Persistent atrial fibrillation (5) Cardiomyopathy Qualifiers: Cardiomyopathy type: ischemic Qualified Code(s): I25.5 - Ischemic cardiomyopathy
[2018-05-05 13:31] LABS: Bacteria,Urine Many per hpf (None-Few); Yeast,Urine Many per hpf (None Seen)
[2018-05-05 13:32] LABS: RBC,Urine 0-3 per hpf (0-3)
[2018-05-05] MEDS ORDERED: Furosemide 40 MG/4 ML VIAL IVP ONE (13:32)
--- NOTE | 2018-05-05 13:55 | Podiatry Consult Note ---
Date of Encounter: 05/06/18 Time of Encounter: 13:20 Assessment and Plan (1) Type 2 diabetes mellitus with foot ulcer Current visit: Yes Status: Acute reviewed with patient and husbad her condition, my findings and recommendations for treatment. discussed wound and process of wound healing. will plan for OR tomorrow AM for prep of wound bed for graft placement. risks vs benefits potential complications and consequences of surgery and her condition discussed at length. no guarantees made as to the outcome and they understood she is at risk for limb loss and that this wound if able to heal is going to take a long time and during that time she is going to require return trips to the operating room. NPO after midnight. Qualifiers: Diabetes mellitus senior care insulin use: with terminal operations supervisor use Qualified Co de(s): E11.621 - Type 2 diabetes mellitus with foot ulcer; L97.509 - Non- pressure chronic ulcer of other part of unspecified foot with unspecified severity; Z79.4 - FPC (current) use of insulin (2) Chronic ulcer of left foot with fat layer exposed Current visit: Yes Status: Acute see above. History of Present Illness HPI: Ms. Kaplan is a 78 year old female s/p left choparts amputation with anterior amputation stump wound. Admitted with altered mental status found to have UTI. Patient seen in wound care center this past Tuesday. Currently in nursing facility. 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, blind left eye Psychiatric history: no psych history - Past Surgical History Surgical History: coronary bypass (CABG), orthopedic, other, splenectomy, appendectomy Additional surgical history: broke left foot (screws in left foot) left foot amputation, quadruple bypass - Social History Smoking Status: Never smoker Smokeless Tobacco Status: No Alcohol use: none Drug use: none - Family History Mother Living Status: Hx Family Cardiac Disorders: No Hx Family Respiratory Disorders: No Hx Family Cancer: Yes (Uterine Cancer) Hx Family GI Disorders: No Hx Family Endocrine Disorder: No Hx Family Neuromuscular Disorders: No Hx Family Neurologic Disorders: No Hx Family HEENT Disorders: No Hx Family Autoimmune Disorders: No Father Adopted: No Living Status: Hx Family Cardiac Disorders: No Hx Family Respiratory Disorders: No Hx Family Cancer: Yes Hx Family Endocrine Disorder: No Hx Family Neuromuscular Disorders: No Hx Family Neurologic Disorders: No Hx Family HEENT Disorders: No Hx Family Autoimmune Disorders: No Medications and Allergies Simvastatin [Zocor] 40 mg PO HS 02/23/17 [History] Ergocalciferol (VITAMIN D2) [Vitamin D2] 50,000 unit PO QWEEK 03/25/18 [History] Acetaminophen [Tylenol] 650 mg PO Q4H PRN 04/15/18 [History] Cefazolin Sodium/D5w [Cefazolin 2 G/50 ml-D5w Bag] 1 vial IV DAILY 04/15/18 [History] Dorzolamide/Timolol/Pf [Dorzolamide-Timolol 2%-0.5%] 1 drop RIGHT EYE BID 04/15/18 [History] Insulin NPH Hum/Reg Insulin Hm [Humulin 70-30 Vial] 20 unit SQ BID 04/15/18 [History] Nitroglycerin [Nitrostat] 0.4 mg SL PRN PRN 04/15/18 [History] Warfarin perPT [Coumadin perPT] 2 mg PO DAILY 04/15/18 [History] Nystatin Cream [Mycostatin Cream] 1 appl TP TID #1 tube 04/19/18 [Rx] Collagenase Oint [Santyl] 30 gm TP DAILY 05/04/18 [History] Lisinopril 2.5 mg PO DAILY 05/04/18 [History] Melatonin [Melatin] 6 mg PO HS PRN 05/04/18 [History] Methyl Salicylate/Menthol [Muscle Rub Cream] 1 applic TP TID 05/04/18 [History] Metoprolol Succinate 50 mg PO DAILY 05/04/18 [History] Ondansetron HCl [Zofran] 4 mg PO Q4H PRN 05/04/18 [History] Oxycodone HCl 5 mg PO Q12H PRN 05/04/18 [History] Pantoprazole Sodium [Protonix] 40 mg PO DAILY 05/04/18 [History] Sucralfate [Carafate] 1 gm PO BID 05/04/18 [History] Allergy/AdvReac Type Severity Reaction Status Date / Time lidocaine Allergy See Verified 04/17/18 09:26 Comments All Systems Reviewed: The remainder of the systems were reviewed and are negative - Constitutional Constitutional: no fever(s) - Cardiovascular Cardiovascular: no chest pain - Respiratory Respiratory: no dyspnea - Musculoskeletal Musculoskeletal: numbness Physical Exam - Constitutional Vitals: Temp Pulse Resp BP Pulse Ox 98.2 F 75 16 131/77 94 05/05/18 11:18 05/05/18 11:18 05/05/18 11:18 05/05/18 11:18 05/05/18 11:18 Exam: well developed female in no acute distress left choparts amputation. wound anterior foot with fibrogranular base. small amount of slough. moderate serous drainage. no fluctuance. no purulence. absent protective sensation. mild edema. foot is warm to touch. no calf pain with squeeze. Results - Labs Result Diagrams: 05/06/18 06:00 05/06/18 06:00 Labs: Abnormal lab results RBC 3.27 M/mcL (3.82-4.97) L 05/05/18 04:00 Hgb 9.1 g/dL (11.5-15.4) L 05/05/18 04:00 Hct 29.3 % (35.3-44.9) L 05/05/18 04:00 MCH 27.8 pg (28.0-33.3) L 05/05/18 04:00 MCHC 31.1 g/dL (31.6-35.5) L 05/05/18 04:00 RDW 17.7 % (11.5-14.5) H 05/05/18 04:00 MPV 12.6 fL (9.4-12.4) H 05/05/18 04:00 ESR 56 mm/hr (0-15) H 05/04/18 14:04 PT 27.9 Seconds (9.4-12.1) H 05/05/18 04:00 BUN 32 mg/dL (8-23) H 05/05/18 04:00 Est GFR (Non-Af Amer) 57 (> 60) L 05/05/18 04:00 BUN/Creatinine Ratio 34 (6-26) H 05/05/18 04:00 Glucose 179 mg/dL (70-105) H 05/05/18 04:00 POC Glucose 313 mg/dL (70-99) H 05/04/18 20:24 Calculated Osmolality 301 (280-300) H 05/05/18 04:00 C-Reactive Protein 34 mg/L (Less than 10) H 05/04/18 14:04 Albumin 2.8 g/dL (3.5-5.7) L 05/05/18 04:00 Globulin 3.9 g/dL (2.4-3.5) H 05/05/18 04:00 Albumin/Globulin Ratio 0.7 (1.1-2.2) L 05/05/18 04:00 Urine Color [place] (Yellow) A 05/05/18 12:34 Urine Clarity Turbid (Clear) A 05/05/18 12:34 Urine Protein 100 mg/dL (Neg-Trace) H 05/04/18 11:45 Urine Ketones 15 mg/dL (Negative) H 05/04/18 11:45 Urine Blood Large (Negative) H 05/04/18 11:45 Ur Leukocyte Esterase Large (Negative) H 05/04/18 11:45 Urine Microscopic WBC TNTC per hpf (0-3) H 05/05/18 12:34 Ur Squamous Epith Cells Many per lpf (None-Few) H 05/05/18 12:34 Urine Bacteria Many per hpf (None-Few) H 05/05/18 12:34 Urine Yeast Many per hpf (None Seen) H 05/05/18 12:34 H & H 05/05/18 Range/Units 04:00 Hgb 9.1 L (11.5-15.4) g/dL Hct 29.3 L (35.3-44.9) % All other labs normal. Consult Discharge Plan - Plan Additional Instructions: Patient admitted to the hospital. Return to the ER for any new altered mental status, fevers, chills, discolored urine, pain, or any new symptoms that may arise. Referrals: Martín Odonnell MD [Primary Care Provider] -
--- NOTE | 2018-05-05 15:03 | Internal Med Progress Note ---
Hospitalist Progress Note - Encounter Date of Encounter: 05/05/18 Time of Encounter: 15:02 - Subjective Interval History: Seen and examined at bedside. She is less confused this morning but does not appear to be back to baseline. Daughter at bedside and said patient was quite confused overnight and early this morning. Patient apparently took a small nap and woke up with somewhat improved mentation. Patient is alert and oriented on exam but forgetful. She has no complaints. Specifically denies chest pain, no shortness of breath. No abdominal pain, no nausea vomiting diarrhea. - Exam Vitals: Temp Pulse Resp BP Pulse Ox 98.2 F 75 16 131/77 94 05/05/18 11:18 05/05/18 11:18 05/05/18 11:18 05/05/18 11:18 05/05/18 11:18 Exam: General appearance: Present: A&O X 3, pleasant, no acute distress - Head Head exam: Present: atraumatic, normocephalic - Eye Eye exam: Present: PERRL, conjuntiva pink, sclera anicteric Pupils: Present: PERRL - Neck Neck exam general surgery: Present: supple, trachea midline. Absent: lymphadenopathy - Respiratory Respiratory exam: Present: chest wall tenderness, CTAB. Absent: accessory muscle use, rales, rhonchi, wheezes - Cardiovascular Cardiovascular exam: Present: RRR, +S1, +S2. Absent: diastolic murmur, gallop, rubs, systolic murmur - GI/Abdominal GI/Abdominal exam: Present: normal bowel sounds, soft, no peritoneal signs. Absent: distended, tenderness - Extremities Exam Extremities exam: Present: Left foot with dressing clean/dry/intact. Bilateral lower extremity pitting edema - Neurological Exam Neurological exam: Present: CN II-XII intact, oriented X 4 but forgetful - Skin Skin exam: Present: dry, intact - Assessment and Plan (1) Acute metabolic encephalopathy Current Visit: Yes Status: Acute Assessment and Plan: presented with acute confusion; baseline mentation alert and oriented per . Suspect she has some component of underlying dementia as daughter reports intermittent confusion over the last year. Head CT nonacute. Brain MRI with evidence of prior infarct otherwise nonacute. Acute metabolic encephalopathy likely multifactorial with underlying dementia with superimposed delirium with prolonged hospitalization/SNF stay and now with UTI. Evaluated by psychiatry who recommended low-dose of Haldol (2.5mg Q6H PRN to help with confusion; can increase to 5mg at a time if she tolerates the medication). Supportive care. Reorientation PRN, encourage sleep/wake cycle. (2) Abnormal urinalysis Current Visit: Yes Status: Acute Assessment and Plan: UA concerning for UTI. Urine culture not completed per [facility] lab protocol. Continue IV ceftriaxone. Repeat UA with C&S (3) CVA (cerebral vascular accident) Current Visit: Yes Status: Acute Assessment and Plan: brain MRI with evidence of prior infarct otherwise nonacute. Patient is not aware of having CVA in the past. Neurologically intact, no deficits apparent. Start low dose ASA (4) Foot osteomyelitis, left Current Visit: Yes Status: Acute Assessment and Plan: s/p emergent partial left foot amputation on 03/25/2018 for severe and extensive gas gangrene infection per Dr. Ayers. S/p surgical revision on 03/29/18 and wound graft 04/18/2018. Follows with ID, Podiatry and Wound care outpatient. Seen by ID on 05/03/2018 who recommended continuing ceftriaxone 2 g IV daily through 05/10/18. CRP and sed rate elevated but lower than previous values. Podiatry managing dressing changes. (5) A-fib Current Visit: No Status: Chronic Assessment and Plan: per hx. Rate controlled. Not on rate controlling agent per home medication list. Cont home coumadin, BB (6) Cardiomyopathy Current Visit: No Status: Chronic Assessment and Plan: per hx. 04/16/2018 EF 20-25% and severe left diastolic dysfunction (previous EF 40%). Was evaluated by Cardiology during 04/15/2018 hospitalization and medical management was recommended time. Will need repeat TTE in 3 months to re- evaluate EF; if remains less than 35% then ICD evaluation will be considered per most recent cardiology evaluation. Appears decompensated with dyspnea and lower extremity edema on exam. Not on Lasix at home. Give one-time dose IV Lasix. Continue home ACEI and BB. CXR and BNP pending. Defer further diuresis to oncoming hospitalist as one-time dose IV Lasix may suffice. DVT Prophylaxis: Coumadin - Time Spent with Patient Total time spent is greater than 50% in coordination of care (as documented) at patient's floor/unit and/or counseling patient: Internal Medicine: Result - Labs CBC & Chem 7: 05/05/18 04:00 05/05/18 04:00 Labs: Short CBC 05/05/18 Range/Units 04:00 WBC 7.8 (4.3-11.1) K/mcL Hgb 9.1 L (11.5-15.4) g/dL Hct 29.3 L (35.3-44.9) % Plt Count 299 (140-400) K/mcL BMP 05/05/18 04:00 Sodium 140 Potassium 3.7 Chloride 107 Carbon Dioxide 25 BUN 32 H Creatinine 0.95 Glucose 179 H Calcium 8.6 Liver Function 05/05/18 Range/Units 04:00 Total Bilirubin 1.0 (0.3-1.0) mg/dL AST 23 (13-39) Units/L ALT 11 (7-52) Units/L Alkaline Phosphatase 80 (34-104) Units/L Albumin 2.8 L (3.5-5.7) g/dL Urine 05/05/18 Range/Units 12:34 Urine Color [place] A (Yellow) Urine Clarity Turbid A (Clear) Urine pH 5.0 (5.0-8.0) pH Units Ur Specific [place] 1.016 (1.010-1.025) Urine Glucose (UA) TNP - ABG Interpretation ABG results: PT/INR, D-dimer PT 27.9 Seconds (9.4-12.1) H 05/05/18 04:00 - Impressions Impressions Brain MRI 05/04/18 13:36 IMPRESSION: Multifocal small-vessel ischemic change bilaterally with a few small prior infarcts. No acute infarct or hemorrhage. D/ / Mauricio Munoz / Mauricio Munoz Interpreting Provider: Mauricio Munoz Consult Discharge Plan - Plan Additional Instructions: Patient admitted to the hospital. Return to the ER for any new altered mental status, fevers, chills, discolored urine, pain, or any new symptoms that may arise. Referrals: Martín Odonnell MD [Primary Care Provider] - (4) Foot osteomyelitis, left Qualifiers: Osteomyelitis type: chronic multifocal Qualified Code(s): M86.372 - Chronic multifocal osteomyelitis, left ankle and foot (5) A-fib Qualifiers: Atrial fibrillation type: persistent Qualified Code(s): I48.1 - Persistent atrial fibrillation (6) Cardiomyopathy Qualifiers: Cardiomyopathy type: ischemic Qualified Code(s): I25.5 - Ischemic cardiomyopathy
[2018-05-05] MEDS: *HR* Warfarin 2 MG TABLET PO SCH (16:49)
[2018-05-05] MEDS: Aspirin 81 MG TAB.CHEW PO SCH (16:49)
[2018-05-06] MEDS ORDERED: Haloperidol Lactate 5 MG/ML VIAL IVP ONE (03:42)
[2018-05-06 06:14] LABS: Hematocrit 31.1 % (35.3-44.9); Hemoglobin 9.6 g/dL (11.5-15.4); Mean Corpuscular HGB Conc 30.9 g/dL (31.6-35.5); Mean Corpuscular Hemoglobin 27.8 pg (28.0-33.3); Mean Corpuscular Volume 90.1 fL (83.0-100.0); Mean Platelet Volume 12.3 fL (9.4-12.4); Platelet Count 303 K/mcL (140-400); Red Blood Count 3.45 M/mcL (3.82-4.97); Red Cell Distribution Width 17.8 % (11.5-14.5)
[2018-05-06 06:21] LABS: Prothrombin Time 34.3 Seconds (9.4-12.1)
[2018-05-06 06:34] LABS: BUN/Creatinine Ratio 35 (6-26); Blood Urea Nitrogen 35 mg/dL (8-23); Calcium 8.7 mg/dL (8.6-10.3); Carbon Dioxide 23 mEq/L (23-29); Chloride 105 mEq/L (98-107); Glucose 280 mg/dL (70-105); Osmolality,Calculated 308 (280-300); Potassium 3.5 mEq/L (3.5-5.1); Sodium 140 mEq/L (136-145); eGFR For Non-African Americans 53 (> 60)
[2018-05-06] MEDS ORDERED: Ondansetron 4 MG/2 ML VIAL ONE (07:36)
[2018-05-06] MEDS ORDERED: Dexamethasone 4 MG/ML VIAL ONE (07:36)
[2018-05-06] MEDS ORDERED: *HR* FentaNYL (PF) 100 MCG/2 ML VIAL ONE (07:36)
[2018-05-06] MEDS ORDERED: *HR* Propofol 200 MG/20 ML VIAL IVP ONE (07:36)
[2018-05-06] MEDS ORDERED: Lidocaine -MPF 2% 2 ML VIAL ONE (07:36)
[2018-05-06] MEDS ORDERED: Chloroprocaine/PF 20 ML VIAL INFILT ONE (08:00)
--- NOTE | 2018-05-06 08:23 | Anesthesia Evaluation PreOp ---
Date of Encounter: 05/06/18 Time of Encounter: 08:20 - Past History Planned Operation: I&D, Ulcer Graft Jacket (left) Cardiac History: OK, CHF (Severe LV dysfunction with EF 20-25% per TTE 04-16-18), HTN, Hyperlipidemia, Arrhythmia (this admission, new onset A-fib), Cardiac Surgery (CABG 2000), Other (PAD) Pulmonary History: Denies Any Significant HX (although patient is periodically de-saturating (likely deconditioning, atelectasis)) TREND INVESTIGATOR History: CVA (old small infarcts present on recent MRI brain), Other (diabetic neuropathy, altered mental status (possibly as a result of the UTI)) Other Medical History: Renal (stage 2 ckd, chronic UTI's), Bleeding (GI bleed on admission ), Diabetes Type II (uses insulin) Anesthesia History: No Prior Anesthetic Complications Alcohol Use: none Drug use: none Medications and Allergies Simvastatin [Zocor] 40 mg PO HS 02/23/17 [History] Ergocalciferol (VITAMIN D2) [Vitamin D2] 50,000 unit PO QWEEK 03/25/18 [History] Acetaminophen [Tylenol] 650 mg PO Q4H PRN 04/15/18 [History] Cefazolin Sodium/D5w [Cefazolin 2 G/50 ml-D5w Bag] 1 vial IV DAILY 04/15/18 [History] Dorzolamide/Timolol/Pf [Dorzolamide-Timolol 2%-0.5%] 1 drop RIGHT EYE BID 04/15/18 [History] Insulin NPH Hum/Reg Insulin Hm [Humulin 70-30 Vial] 20 unit SQ BID 04/15/18 [History] Nitroglycerin [Nitrostat] 0.4 mg SL PRN PRN 04/15/18 [History] Warfarin perPT [Coumadin perPT] 2 mg PO DAILY 04/15/18 [History] Nystatin Cream [Mycostatin Cream] 1 appl TP TID #1 tube 04/19/18 [Rx] Collagenase Oint [Santyl] 30 gm TP DAILY 05/04/18 [History] Lisinopril 2.5 mg PO DAILY 05/04/18 [History] Melatonin [Melatin] 6 mg PO HS PRN 05/04/18 [History] Methyl Salicylate/Menthol [Muscle Rub Cream] 1 applic TP TID 05/04/18 [History] Metoprolol Succinate 50 mg PO DAILY 05/04/18 [History] Ondansetron HCl [Zofran] 4 mg PO Q4H PRN 05/04/18 [History] Oxycodone HCl 5 mg PO Q12H PRN 05/04/18 [History] Pantoprazole Sodium [Protonix] 40 mg PO DAILY 05/04/18 [History] Sucralfate [Carafate] 1 gm PO BID 05/04/18 [History] Allergy/AdvReac Type Severity Reaction Status Date / Time lidocaine Allergy See Verified 04/17/18 09:26 Comments - Meds/Allergy Pre-op Review Medications Reviewed: Yes Allergies Reviewed: Yes Beta Blockers on Current Med List: Yes (05-05-18 metoprolol 9:23) Anesthesia Results - Labs 05/06/18 06:00 05/06/18 06:00 - Imaging EKG: report reviewed, image reviewed (Sinus rhythm Nonspecific IVCD with LAD Probable anteroseptal infarct, old BASELINE ARTIFACT) Additional studies: 04-16-2018 TTE: Impressions: LVEF 20-25%. Moderately dilated left ventricle. Atypical septal motion consistent with post-operative status. Severe left ventricular diastolic dysfunction. Mild right ventricular hypokinesis. Mild to moderate biatrial enlargement. Moderate tricuspid regurgitation. Moderate pulmonary hypertension. Anesthesia Exam Last Vital Signs Temp 97.5 F L 05/06/18 03:25 Pulse 73 05/06/18 03:25 Resp 15 05/06/18 03:25 BP 155/79 05/06/18 03:25 Pulse Ox 91 05/06/18 03:25 Weight: 95 kg NPO (# of Hours): > 8 hrs - HEENT Pupil (Motor): Pupils equal, EOMI Mallampati: III Teeth: Edentulous Oral Opening: Greater than 3 - TREND INVESTIGATOR LOC: Oriented - Cardiac Rhythm: Regular Murmur: None - Pulmonary Breath Sounds: bilateral Clear Respiratory Effort: Symmetrical Anesthesia Assess/Plan ASA Score: 4 Anesthetic Plan: MAC Monitoring Plan: Standard Monitors Recovery Plan: PACU
--- NOTE | 2018-05-06 08:28 | Operative Note ---
Date of procedure: 05/06/18 Pre-op diagnosis: left diabetic foot wound Post-op diagnosis: same Procedure: surgical preparation of wound for graft left foot application of graft Implants: PuraPly Complications: none Anesthesia: MAC Local Anesthetics: Other (Chloroprocaine) Surgeon: Agus Ayers Was there an therapist's assistant present: No Estimated blood loss (cc): 10 Specimen: none Condition: stable Disposition: PACU Procedure in Detail: Indications: 78 year old diabetic female admitted with UTI and has left [place] amputation and left diabetic foot wound having the nature of the above procedure, risks versus benefits potential complications consequences of her condition and surgery discussed at length. No guarantees were made that she would be able to keep her limb or heal the wound or be functional if she does heal the wound. All their questions have been answered and informed consent was signed. Patient was taken from preoperative holding area and into the operating room and chloroprocaine was injected into the patient's left foot. The left foot was scrubbed prepped and draped in the usual sterile fashion. No tourniquet was utilized. The following procedure then began Surgical preparation of left foot wound for graft and application of graft. Attention was directed to the patient's left foot where a wound was present measuring 9.1cmx 5.5 cm x 0.4 cm with fibrous and some sloughing tissue. The Misonex debridement wand was utilized as well as sharp instrumentation to adequately prepare the wound bed for placement of the graft. Adequate hemostasis was present at the conclusion and the base completely granular. A 6 cm x 9 cm PuraPly graft was applied to the left foot wound and secured with Steri-Strips. Graft was covered with Adaptic and postoperative dressing included 4 x 4 gauze, ABD pad, Kerlix and Coban. Patient given strict instructions for nonweightbearing to the left lower extremity. Elevation. Return to the floor where she will continue IV antibiotics.
[2018-05-06] MEDS ORDERED: Furosemide 40 MG/4 ML VIAL IVP SCH ×2 (09:00→11:00)
[2018-05-06] MEDS ORDERED: D5% in Water 1,000 ML IVC PRN (09:18)
[2018-05-06] MEDS ORDERED: *HR* OxyCODONE Immed Rel 5 MG TABLET PO PRN (09:18)
[2018-05-06] MEDS ORDERED: Naloxone 0.4 MG/ML INJ IVP PRN (09:18)
[2018-05-06] MEDS ORDERED: Dextrose Gel 15 GM/37.5 ML TUBE PO PRN ×2 (09:18)
--- NOTE | 2018-05-06 09:18 | Anesthesia Evaluation Post Op ---
Date of Encounter: 05/06/18 Time of Encounter: 09:18 - Vital Signs Vital Signs: See Anesthesia Record - Lungs Lungs: Clear Ascult./Percussion - Airway Airway: Non-obstructed - Cardiovascular Regular Rate - Mental Status Mental Status: Baseline Status - Pain Pain Scale: 2 - Nausea Vomiting Nausea Vomiting: Not Present - Hydration Hydration: NPO - Discharge PostOp Status: Transfer Patient to floor
[2018-05-06] MEDS: Insulin LISPRO 300 UNITS/3 ML VIAL SQ SCH ×4 (10:29→19:59)
[2018-05-06] MEDS: cefTRIAXone 2,000 MG in Water for inj. (sterile) 20 ML 20 ML IVP SCH ×2 (10:43→10:53)
[2018-05-06] MEDS: Sucralfate 1 GM TABLET PO SCH ×2 (10:52→16:02)
[2018-05-06] MEDS: Aspirin 81 MG TAB.CHEW PO SCH ×4 (10:52→12:45)
[2018-05-06] MEDS: Metoprolol XL (24 HR) Succ 50 MG TAB.ER.24H PO SCH ×4 (10:53→12:45)
[2018-05-06] MEDS: Nystatin POWDER 30 GM BOTTLE TP SCH ×3 (10:53→19:59)
--- NOTE | 2018-05-06 11:43 | Internal Med Progress Note ---
Hospitalist Progress Note - Encounter Date of Encounter: 05/06/18 Time of Encounter: 11:36 - Subjective Interval History: Patient just came up to the floor from operative room. Family members at bedside and have lots of question about the patient care in one the explanations. Review the lab. Patient under the effect of medication therefore not adequate communication and no review of system done. - Exam Vitals: Temp Pulse Resp BP Pulse Ox 98.1 F 77 15 147/82 100 05/06/18 09:29 05/06/18 10:30 05/06/18 10:30 05/06/18 10:30 05/06/18 10:30 Exam: General appearance: Present: Under the effect of sedating medicine is just came up from operating room. Head exam: Present: atraumatic, normocephalic - Eye-PERRLA - Dry oral mucosa - Neck-supple - Respiratory-slight dullness sounds bibasilar could be due to body habitus but no crackles or wheezing heard - Cardiovascular-regular rate and rhythm with no murmur appreciated. - GI/Abdominal-soft nontender positive bowel sounds. - Extremities Exam-left foot with dressing and resting on for the rest. +1 Bilateral lower extremity pitting edema - Neurological Exam-unable to examine as patient under the effect of sedating medicine. Follows few commands like opening the eye on addressing name looking around and going back to sleep again Skin exam: Present: dry, intact - Assessment and Plan (1) A-fib Current Visit: No Status: Chronic Assessment and Plan: per hx. Rate controlled. Cont home coumadin, BB. Therapeutic INR (2) Cardiomyopathy Current Visit: No Status: Chronic Assessment and Plan: At this time patient does not appear in volume overload with no shortness of breath therefore will continue a strict I&O's, fluid restriction 1.2 L daily and IV Lasix as needed. 1 dose of IV Lasix was given on 05/05. Will consider Lynch catheter if needed. per hx. 04/16/2018 EF 20-25% and severe left diastolic dysfunction (previous EF 40%). Was evaluated by Cardiology during 04/15/2018 hospitalization and medical management was recommended time. Will need repeat TTE in 3 months to re-evalua te EF; if remains less than 35% then ICD evaluation will be considered per most recent cardiology evaluation. At present changed oral to IV medicine metoprolol 5 mg every 6 hour with hold parameter until she started to take her regular diet. BNP more than 5000 chest x-ray with mild bilateral pleural effusion. Patient is high risk to get volume overloaded and also can get dehydrated on diuresis therefore needs to monitor closely for the volume status. Continue strict I&O's and make further decision for diuresis as needed. Will give 1 dose of Lasix 40 mg IV today and evaluate patient. Will consult cardiology if needed (3) Foot osteomyelitis, left Current Visit: Yes Status: Acute Assessment and Plan: s/p graft placement on left forward today 05/06 patient had. emergent partial left foot amputation on 03/25/2018 for severe and extensive gas gangrene infection per Dr. Ayers. S/p surgical revision on 03/29/18 and wound graft 04/18/2018. Follows with ID, Podiatry and Wound care outpatient. Seen by ID on 05/03/2018 who recommended continuing ceftriaxone 2 g IV daily through 05/10/18 And possible last dose would be June 12. Consulted ID specialist. CRP and sed rate elevated but lower than previous values. Podiatry managing dressing changes. (4) Abnormal urinalysis Current Visit: Yes Status: Acute Assessment and Plan: UA concerning for UTI. Urine culture with yeast. Will give Diflucan 100 mg by mouth daily positive as per ID physician advice. (5) Acute metabolic encephalopathy Current Visit: Yes Status: Acute Assessment and Plan: Multifactorial. presented with acute confusion; baseline mentation alert and oriented per . Suspect she has some component of underlying dementia as daughter reports intermittent confusion and sundowning over the last year and lately slight worse. Head CT nonacute. Brain MRI with evidence of prior infarct otherwise nonacute. Acute metabolic encephalopathy likely multifactorial with underlying dementia with superimposed delirium with prolonged hospitalization/SNF stay . Evaluated by psychiatry who recommended low-dose of Haldol (2.5mg Q6H PRN to help with confusion; can increase to 5mg at a time if she tolerates the medication). Supportive care. Reorientation PRN, encourage sleep/wake cycle. Monitor closely (6) CVA (cerebral vascular accident) Current Visit: Yes Status: Acute Assessment and Plan: brain MRI with evidence of prior infarct otherwise nonacute. Patient is not aware of having CVA in the past. Neurologically intact, no deficits apparent. Continue low dose ASA - Time Spent with Patient Total time spent is greater than 50% in coordination of care (as documented) at patient's floor/unit and/or counseling patient: Greater than 35 minutes Plan of Care Discussed with: family (Spent more than 45 minute inpatient care, discussion with family members extensively and answering appropriately to their satisfaction. Talk to neuropsychology medical consultant. Discuss plan of care with nursing staff.) Internal Medicine: Result - Labs CBC & Chem 7: 05/06/18 06:00 05/06/18 06:00 Labs: Short CBC 05/06/18 Range/Units 06:00 WBC 8.9 (4.3-11.1) K/mcL Hgb 9.6 L (11.5-15.4) g/dL Hct 31.1 L (35.3-44.9) % Plt Count 303 (140-400) K/mcL BMP 05/06/18 06:00 Sodium 140 Potassium 3.5 Chloride 105 Carbon Dioxide 23 BUN 35 H Creatinine 1.01 Glucose 280 H Calcium 8.7 Urine 05/05/18 Range/Units 12:34 Urine Color [place] A (Yellow) Urine Clarity Turbid A (Clear) Urine pH 5.0 (5.0-8.0) pH Units Ur Specific [place] 1.016 (1.010-1.025) Urine Glucose (UA) TNP - ABG Interpretation ABG results: PT/INR, D-dimer PT 34.3 Seconds (9.4-12.1) H 05/06/18 06:00 - Impressions Impressions Chest X-Ray 05/05/18 13:23 IMPRESSION: Cardiomegaly with minimal interstitial edema. Left base atelectasis with small bilateral effusions. D/ / 05/05/2018 15:30:28 Cassie Boateng MD / katrin Interpreting Provider: Cassie Boateng MD Consult Discharge Plan - Plan Additional Instructions: Patient admitted to the hospital. Return to the ER for any new altered mental status, fevers, chills, discolored urine, pain, or any new symptoms that may arise. Referrals: Martín Odonnell MD [Primary Care Provider] - (1) A-fib Qualifiers: Atrial fibrillation type: persistent Qualified Code(s): I48.1 - Persistent atrial fibrillation (2) Cardiomyopathy Qualifiers: Cardiomyopathy type: ischemic Qualified Code(s): I25.5 - Ischemic cardiomyopathy (3) Foot osteomyelitis, left Qualifiers: Osteomyelitis type: chronic multifocal Qualified Code(s): M86.372 - Chronic multifocal osteomyelitis, left ankle and foot
[2018-05-06] MEDS ORDERED: Furosemide 40 MG/4 ML VIAL IVP ONE (12:04)
[2018-05-06] MEDS ORDERED: Fluconazole 100 MG TABLET PO SCH (12:15)
[2018-05-06] MEDS: *HR* Metoprolol 5 MG/5 ML VIAL IVP SCH ×3 (13:06→23:45)
[2018-05-06] MEDS ORDERED: *HR* Warfarin 1 MG TABLET PO ONE (18:00)
[2018-05-06] MEDS ORDERED: Warfarin perPT PO PRN (18:00)
[2018-05-07 04:26] LABS: Hematocrit 30.2 % (35.3-44.9); Hemoglobin 9.5 g/dL (11.5-15.4); Mean Corpuscular HGB Conc 31.5 g/dL (31.6-35.5); Mean Corpuscular Hemoglobin 28.1 pg (28.0-33.3); Mean Corpuscular Volume 89.3 fL (83.0-100.0); Mean Platelet Volume 12.6 fL (9.4-12.4); Platelet Count 309 K/mcL (140-400); Red Blood Count 3.38 M/mcL (3.82-4.97); Red Cell Distribution Width 17.7 % (11.5-14.5)
[2018-05-07 04:33] LABS: INR 3.1; Prothrombin Time 34.6 Seconds (9.4-12.1)
[2018-05-07 04:36] LABS: BUN/Creatinine Ratio 33 (6-26); Blood Urea Nitrogen 33 mg/dL (8-23); Calcium 8.5 mg/dL (8.6-10.3); Carbon Dioxide 26 mEq/L (23-29); Chloride 105 mEq/L (98-107); Glucose 254 mg/dL (70-105); Osmolality,Calculated 308 (280-300); Potassium 3.7 mEq/L (3.5-5.1); Sodium 141 mEq/L (136-145); eGFR For Non-African Americans 53 (> 60)
[2018-05-07] MEDS: *HR* Metoprolol 5 MG/5 ML VIAL IVP SCH ×4 (05:46→23:44)
[2018-05-07] MEDS ORDERED: Haloperidol Lactate 5 MG/ML VIAL IVP ONE (10:09)
[2018-05-07] MEDS: cefTRIAXone 2,000 MG in Water for inj. (sterile) 20 ML 20 ML IVP SCH (11:11)
[2018-05-07] MEDS: Fluconazole 100 MG/50 ML 100 MG/50 ML BAG IVPB SCH (11:11)
[2018-05-07] MEDS: Insulin LISPRO 300 UNITS/3 ML VIAL SQ SCH ×4 (11:22→20:31)
[2018-05-07] MEDS: Sucralfate 1 GM TABLET PO SCH ×2 (11:22→17:45)
--- NOTE | 2018-05-07 11:23 | Podiatry Progress Note ---
Date of Encounter: 05/07/18 Time of Encounter: 10:10 - Assessment and Plan (1) Type 2 diabetes mellitus with foot ulcer Current Visit: Yes Status: Acute Qualifiers: Diabetes mellitus icing maker insulin use: with icing maker use Qualified Code(s): E11.621 - Type 2 diabetes mellitus with foot ulcer; L97.509 - Non- pressure chronic ulcer of other part of unspecified foot with unspecified severity; Z79.4 - personal injury specialist (current) use of insulin (2) Chronic ulcer of left foot with fat layer exposed Current Visit: Yes Status: Acute Subjective Interval history: s/p prep of left foot wound for graft and application of graft. family bedside. they reiterate she does not want any amputation of the leg. no strikethrough on bandage. no calf pain with squeeze. discussed surgery and treatment plan discussed blood work, they will follow up as outpatient with their PCP. ALLYN not back, RF slightly elevated. a slightly elevated RF could indicate sjogren's vs rheumatoid vs false positive however, is a family h/o of autoimmune disease (sjogren's). change tomorrow with alginate over graft to absorb drainage, 4x4, kerlix and coban or LIA wrap. elevation antibiotics per ID dvt ppx Objective - Vital Signs Vital Signs: Vital Signs Temp Pulse Resp BP Pulse Ox 05/07/18 02:51 97.3 F L 75 16 134/81 96 05/06/18 23:27 69 16 151/81 97 05/06/18 15:02 97.9 F 70 16 147/88 100 05/06/18 11:36 71 17 157/84 99 Intake and Output 05/06/18 05/07/18 05/07/18 23:59 07:59 15:59 Intake Total 40 / 40 140 / 140 0 / 0 Balance 40 / 40 140 / 140 0 / 0 Intake: IV Fluids 40 / 40 Rocephin 2,000 MG In Water for 40 / 40 inj. (sterile) 20 ML @ 600 mls/ hr IVP Q24H THADDEUS Rx#:[id number] Oral 0 / 0 140 / 140 0 / 0 Other: Meal Refused Percent of Meal Consumed 0% Weight 92.2 kg Blood Glucose* 169 Patient Weight 05/07/18 23:59 Weight 92.2 kg - Lab Result Diagrams: 05/07/18 04:07 05/07/18 04:07 Labs: Abnormal lab results RBC 3.38 M/mcL (3.82-4.97) L 05/07/18 04:07 Hgb 9.5 g/dL (11.5-15.4) L 05/07/18 04:07 Hct 30.2 % (35.3-44.9) L 05/07/18 04:07 MCHC 31.5 g/dL (31.6-35.5) L 05/07/18 04:07 RDW 17.7 % (11.5-14.5) H 05/07/18 04:07 MPV 12.6 fL (9.4-12.4) H 05/07/18 04:07 ESR 56 mm/hr (0-15) H 05/04/18 14:04 PT 34.6 Seconds (9.4-12.1) H 05/07/18 04:07 BUN 33 mg/dL (8-23) H 05/07/18 04:07 Est GFR (Non-Af Amer) 53 (> 60) L 05/07/18 04:07 BUN/Creatinine Ratio 33 (6-26) H 05/07/18 04:07 Glucose 254 mg/dL (70-105) H 05/07/18 04:07 POC Glucose 271 mg/dL (70-99) H 05/06/18 12:29 Calculated Osmolality 308 (280-300) H 05/07/18 04:07 Calcium 8.5 mg/dL (8.6-10.3) L 05/07/18 04:07 C-Reactive Protein 34 mg/L (Less than 10) H 05/04/18 14:04 B-Natriuretic Peptide > 5000 pg/mL (Less than 100) H 05/07/18 04:07 Albumin 2.8 g/dL (3.5-5.7) L 05/05/18 04:00 Globulin 3.9 g/dL (2.4-3.5) H 05/05/18 04:00 Albumin/Globulin Ratio 0.7 (1.1-2.2) L 05/05/18 04:00 Urine Color [place] (Yellow) A 05/05/18 12:34 Urine Clarity Turbid (Clear) A 05/05/18 12:34 Urine Protein 100 mg/dL (Neg-Trace) H 05/04/18 11:45 Urine Ketones 15 mg/dL (Negative) H 05/04/18 11:45 Urine Blood Large (Negative) H 05/04/18 11:45 Ur Leukocyte Esterase Large (Negative) H 05/04/18 11:45 Urine Microscopic WBC TNTC per hpf (0-3) H 05/05/18 12:34 Ur Squamous Epith Cells Many per lpf (None-Few) H 05/05/18 12:34 Urine Bacteria Many per hpf (None-Few) H 05/05/18 12:34 Urine Yeast Many per hpf (None Seen) H 05/05/18 12:34 Rheumatoid Factor 26 IU/mL (Less than 14) H 05/06/18 18:00 Microbiology, Last 48 Hours 05/04/18 11:45 Urine Culture - Final Urine,Catheterized Yeast Species Consult Discharge Plan - Plan Additional Instructions: Patient admitted to the hospital. Return to the ER for any new altered mental status, fevers, chills, discolored urine, pain, or any new symptoms that may arise. Referrals: Martín Odonnell MD [Primary Care Provider] -
[2018-05-07] MEDS: Aspirin 81 MG TAB.CHEW PO SCH (11:25)
[2018-05-07] MEDS: Nystatin POWDER 30 GM BOTTLE TP SCH ×3 (11:25→20:26)
[2018-05-07] MEDS ORDERED: Furosemide 20 MG/2 ML VIAL IVP ONE (12:50)
--- NOTE | 2018-05-07 12:53 | Internal Med Progress Note ---
Hospitalist Progress Note - Encounter Date of Encounter: 05/07/18 Time of Encounter: 12:48 - Subjective Interval History: Patient has been agitated and confused since midnight but has been communicating well last evening as per her son who is stated overnight. Family son and at bedside. Patient pulled out IV and also refusing to take any oral m edication. She did not eat breakfast but has been taking liquid juices intermittently. Reviewed the lab BNP still more than 5000. Review of system-unable to obtain - Exam Vitals: Temp Pulse Resp BP Pulse Ox 97.5 F L 77 15 154/91 92 05/07/18 12:16 05/07/18 12:16 05/07/18 12:16 05/07/18 12:16 05/07/18 12:16 Exam: General appearance: Lying comfortably on bed with close eyes. Communicative but inappropriately. Appears agitated intermittently. No acute distress. Refusing any oral medication and also pulled out IV line. Family at bedside Head exam: Present: atraumatic, normocephalic - Dry oral mucosa-as per family it has been chronically dry - Neck-supple - Respiratory-slight dullness sounds bibasilar could be due to body habitus but no crackles or wheezing heard - Cardiovascular-regular rate and rhythm with no murmur appreciated. - GI/Abdominal-soft nontender positive bowel sounds. - Extremities Exam-left foot with dressing and resting on foot rest. +1 Bilateral lower extremity pitting edema - Neurological -alert, sleepy but awakened on addressing verbally. Appear confused and disoriented but does recognize and son. No focal neurological deficit motor 5 x 5 in all 4 extremities. Skin exam: Present: dry, intact - Assessment and Plan (1) Acute metabolic encephalopathy Current Visit: Yes Status: Acute Assessment and Plan: Multifactorial. presented with acute confusion; baseline mentation alert and oriented per . Suspect she has some component of underlying dementia as daughter reports intermittent confusion and sundowning over the last year and lately slight worse. Head CT nonacute. Brain MRI with evidence of prior infarct otherwise nonacute. Acute metabolic encephalopathy likely multifactorial with underlying dementia with superimposed delirium with prolonged hospitalization/SNF stay . Evaluated by psychiatry who recommended low-dose of Haldol (2.5mg Q6H PRN to help with confusion; can increase to 5mg at a time if she tolerates the medication) but no held oral dose has been given yet. Will consider 2.5 mg IV Haldol today. No QT interval noted. Fall risk precaution. Supportive care. Reorientation PRN, encourage sleep/wake cycle. Monitor closely (2) Cardiomyopathy Current Visit: No Status: Chronic Assessment and Plan: At this time patient does not appear in volume overload with no shortness of breath therefore will continue a strict I&O's, fluid restriction 1.2 L daily and IV Lasix as needed. 1 dose of IV Lasix was given on 05/05. Will consider Lynch catheter if needed but family want to hold on that being patient agitated and has concerned it might increased agitation. Still significant high BNP more than 5000 therefore Lasix 20 mg IV given today. Consulted cardiology. per hx. 04/16/2018 EF 20-25% and severe left diastolic dysfunction (previous EF 40%). Was evaluated by Cardiology during 04/15/2018 hospitalization and medical management was recommended time. Will need repeat TTE in 3 months to re- evaluate EF; if remains less than 35% then ICD evaluation will be considered per most recent cardiology evaluation. At present changed oral to IV medicine metoprolol 5 mg every 6 hour with hold parameter until she started to take her regular diet. BNP more than 5000 chest x-ray with mild bilateral pleural effusion. Will repeat chest x-ray as needed. Patient is high risk to get volume overloaded and also can get dehydrated on diuresis therefore needs to monitor closely for the volume status. Continue strict I&O's and make further decision for diuresis as needed. (3) Foot osteomyelitis, left Current Visit: Yes Status: Acute Assessment and Plan: s/p graft placement on left forward today 05/06 patient had. emergent partial left foot amputation on 03/25/2018 for severe and extensive gas gangrene i nfection per Dr. Ayers. S/p surgical revision on 03/29/18 and wound graft 04/18/2018. Follows with ID, Podiatry and Wound care outpatient. Seen by ID on 05/03/2018 who recommended continuing ceftriaxone 2 g IV daily through 05/10/18 And possible last dose would be June 12. Consulted ID specialist. CRP and sed rate elevated but lower than previous values. Podiatry managing dressing changes. (4) A-fib Current Visit: No Status: Chronic Assessment and Plan: per hx. Rate controlled. Cont home coumadin, BB. Therapeutic INR. (5) Abnormal urinalysis Current Visit: Yes Status: Acute Assessment and Plan: UA concerning for UTI. Urine culture with yeast. Started Diflucan 100 mg IV daily . (6) Rheumatoid factor positive Current Visit: Yes Status: Acute Assessment and Plan: History of Sjogren's syndrome in the family her daughter has it. Patient also has history of chronic dry oral mucosa but never brought attention to medical provider in the past. Elevated ESR CRP and rheumatoid factor but ALLYN pending - needs to follow PCP on OPD basis for further evaluation. Talked to cue worker also just to rule out any possibility of autoimmune cardiomyopathy. (7) CVA (cerebral vascular accident) Current Visit: Yes Status: Acute Assessment and Plan: Remote based on brain MRI with evidence of prior infarct otherwise nonacute. Patient is not aware of having CVA in the past. Neurologically intact, no def icits apparent. Continue low dose ASA (8) Goals of care, counseling/discussion Current Visit: Yes Status: Acute Assessment and Plan: Patient has been declining in her mentally status with fluctuancy. Sundowning is getting worse. Patient also has underlying dementia and CVA. No focal neurological deficit. Psychiatrists consulted and advise for Haldol. Will give 1 dose of Haldol intravenously and see the effect. Patient is refusing oral medication and also decreased food intake that can put her at risk for nutritional deficiency, dehydration and inadequate medical management. Patient has been on Rocephin for osteomyelitis and seems like improving bone infection as per corporate travel counselor's. No other source of infection identified yet, Blood culture with no growth, urine culture with yeast infection. Patient does not have fever, tachycardia or elevated white count. ID also consulted to get expert opinion. Food Sales Clerk's also consulted for management of cardiac related problem if in case contributing to the present condition. I discussed with son and in length about further plan of care. After having extensive discussion it was decided to get involved palliative care team to help in reassessing the code status based on progression of the patient condition . (9) DVT prophylaxis Current Visit: Yes Status: Acute Assessment and Plan: SCDs. Patient on warfarin with therapeutic INR. - Time Spent with Patient Total time spent is greater than 50% in coordination of care (as documented) at patient's floor/unit and/or counseling patient: Greater than 35 minutes Plan of Care Discussed with: family (Spent more than 40 minute in patient care, and discussion with family member, nursing staff, consultants) Internal Medicine: Result - Labs CBC & Chem 7: 05/07/18 04:07 05/07/18 04:07 Labs: Short CBC 05/07/18 Range/Units 04:07 WBC 9.2 (4.3-11.1) K/mcL Hgb 9.5 L (11.5-15.4) g/dL Hct 30.2 L (35.3-44.9) % Plt Count 309 (140-400) K/mcL BMP 05/07/18 04:07 Sodium 141 Potassium 3.7 Chloride 105 Carbon Dioxide 26 BUN 33 H Creatinine 1.01 Glucose 254 H Calcium 8.5 L - ABG Interpretation ABG results: PT/INR, D-dimer PT 34.6 Seconds (9.4-12.1) H 05/07/18 04:07 Consult Discharge Plan - Plan Additional Instructions: Patient admitted to the hospital. Return to the ER for any new altered mental status, fevers, chills, discolored urine, pain, or any new symptoms that may arise. Referrals: Martín Odonnell MD [Primary Care Provider] - (2) Cardiomyopathy Qualifiers: Cardiomyopathy type: ischemic Qualified Code(s): I25.5 - Ischemic cardiomyopathy (3) Foot osteomyelitis, left Qualifiers: Osteomyelitis type: chronic multifocal Qualified Code(s): M86.372 - Chronic multifocal osteomyelitis, left ankle and foot (4) A-fib Qualifiers: Atrial fibrillation type: persistent Qualified Code(s): I48.1 - Persistent atrial fibrillation
[2018-05-08] MEDS ORDERED: Haloperidol Lactate 5 MG/ML VIAL IVP ONE (01:22)
[2018-05-08 04:41] LABS: INR 3.3; Prothrombin Time 37.4 Seconds (9.4-12.1)
[2018-05-08 04:43] LABS: Hematocrit 30.6 % (35.3-44.9); Hemoglobin 9.4 g/dL (11.5-15.4); Mean Corpuscular HGB Conc 30.7 g/dL (31.6-35.5); Mean Corpuscular Hemoglobin 27.4 pg (28.0-33.3); Mean Corpuscular Volume 89.2 fL (83.0-100.0); Mean Platelet Volume 12.6 fL (9.4-12.4); Platelet Count 316 K/mcL (140-400); Red Blood Count 3.43 M/mcL (3.82-4.97); Red Cell Distribution Width 17.6 % (11.5-14.5)
[2018-05-08 04:44] LABS: BUN/Creatinine Ratio 50 (6-26); Blood Urea Nitrogen 52 mg/dL (8-23); Calcium 8.6 mg/dL (8.6-10.3); Carbon Dioxide 27 mEq/L (23-29); Chloride 104 mEq/L (98-107); Glucose 225 mg/dL (70-105); Osmolality,Calculated 311 (280-300); Potassium 3.9 mEq/L (3.5-5.1); Sodium 140 mEq/L (136-145); eGFR For Non-African Americans 50 (> 60)
[2018-05-08] MEDS: *HR* Metoprolol 5 MG/5 ML VIAL IVP SCH ×3 (08:04→17:23)
[2018-05-08] MEDS: cefTRIAXone 2,000 MG in Water for inj. (sterile) 20 ML 20 ML IVP SCH (08:04)
[2018-05-08] MEDS: Sucralfate 1 GM TABLET PO SCH ×2 (08:05→16:29)
[2018-05-08] MEDS: Fluconazole 100 MG/50 ML 100 MG/50 ML BAG IVPB SCH (08:06)
[2018-05-08] MEDS: Aspirin 81 MG TAB.CHEW PO SCH (08:06)
[2018-05-08] MEDS: Insulin LISPRO 300 UNITS/3 ML VIAL SQ SCH ×4 (08:07→22:57)
[2018-05-08] MEDS: Nystatin POWDER 30 GM BOTTLE TP SCH ×3 (08:07→23:00)
--- NOTE | 2018-05-08 08:39 | Infectious Disease Consult ---
Date of Encounter: 05/08/18 Time of Encounter: 10:14 Assessment and Plan (1) Altered mental status Status: Acute Assessment and plan: Etiology unclear. Sudden onset. Clinically, does not appear to be infectious as the patient did not have any sepsis criteria. Improved per family's report. CT and MRI of the brain negative for acute changes. Psychiatry consulted, appreciate recommendations. Recommendations: - Further workup of AMS per the primary team. - Discontinue Rocephin. - Re-start Ancef 2 grams IV Q8H. - Duration of treatment depends on the clinical picture, but likely a total of 6-8 weeks. - Monitor renal function and dose-adjust antibiotics. Qualifiers: Altered mental status type: delirium Qualified Code(s): R41.0 - Disorientation, unspecified (2) Foot osteomyelitis, left Status: Acute Assessment and plan: Location: Left foot. Causative organism: MSSA, P. mirabilis. STatus post left lisfranc amputation 03/25/[address] Ayers. Status post left Chopart amputation 03/29/[address] Ayers. Status post left foot wound graft application 05/06/[address] Ayers. Clinically, the foot appears to be doing well. Inflammatory markers improved/stable. I do not think that the foot is acutely infected. Antibiotic recommendations as above. Qualifiers: Osteomyelitis type: chronic multifocal Qualified Code(s): M86.372 - Chronic multifocal osteomyelitis, left ankle and foot (3) Candiduria Status: Acute Assessment and plan: Urine culture positive for yeast species. Not sure if this is contributing to the patient's clinical picture as it seems that she improved prior to initiation of treatment. (4) Non-pressure chronic ulcer of other part of left foot with fat layer exposed Status: Acute Assessment and plan: Wound care per the Podiatry team. (5) Insulin dependent diabetes mellitus Status: Chronic Assessment and plan: Strict glucose control. (6) Anemia Status: Chronic Qualifiers: Anemia type: iron deficiency Qualified Code(s): D50.9 - Iron deficiency anemia, unspecified (7) Atrial fibrillation Status: Chronic Qualifiers: Atrial fibrillation type: paroxysmal Qualified Code(s): I48.0 - Paroxysmal atrial fibrillation (8) Cardiomyopathy Status: Chronic Qualifiers: Cardiomyopathy type: unspecified Qualified Code(s): I42.9 - Cardiomyopathy, unspecified (9) Chronic kidney disease Status: Acute Qualifiers: Chronic kidney disease stage: unspecified stage Qualified Code(s): N18.9 - Chronic kidney disease, unspecified Infectious Disease HPI - Data of Consult Patient: known to practice within the last 3 years Consult date: 05/08/18 Requesting Physician: Lan Corona Primary Care Provider: Martín Odonnell MD - Consult Narrative Reason for consult: Antibiotic management left foot infection History of present illness: Ms. Kaplan is a 78 year old female with a past medical history of diabetes, chronic kidney disease, hypertension, CAD, status post left Charpot's amputation injury to left foot infection currently on IV antibiotic therapy, and DVT. The patient was admitted to the hospital May 04 for UTI and altered mental status. We are consulted May 08 for biotic recommendations for left foot osteomyelitis. Briefly, the patient is an 78-year-old female with past medical history as stated above. Patient is noted to twice a day services we are consult on her case during a recent hospitalization and we have been treating the patient for left foot osteomyelitis. She was previously admitted to the hospital March 25 for left foot infection secondary to nonhealing ulceration. Cultures drawn 03/25/18 were +1 out of 2 sets for MSSA and 1 out of 2 sets for strep antigen O cyst. Repeat blood cultures drawn 03/27/18 were negative. She had a transthoracic echocardiogram and SUDEEP that were both negative for valvular vegetations. She had bilateral TCP O2 monitoring that was consistent with healing. Vascular surgery was consult and recommended that the patient likely benefit from debridement, local wound care, and definitive indication by podiatry. Griffey was not pursued due to the risk of progression to end-stage renal disease given the patient's history of chronic kidney disease. He was ta namrata to the operating room 03/25/18 and underwent a left Lisfran amputation. Intra-op cultures grew Proteus and MSSA. She was taken back to the operating room 03/29/18 underwent a left Chopart amputation. He was discharged to a local extended care facility to complete 6-8 weeks of IV cefazolin. Post-discharge, the ECF stated they could not take her on the Ancef because they did not have nursing staff to manage Q8H dosing, so she was switched to IV Rocephin. I saw her in the office last week and she was doing well and we opted to continue her IV antibiotics. She has continued on wound care since discharge. Apparently, Tuesday she became confused and combative. A urinalysis that was indicative of infection was refusing her antibiotics. She was brought to the emergency department for evaluation. Upon arrival, is afebrile hemodynamically stable. Laboratory studies revealed a normal white blood cell count. Lactic acid and renal function were within normal limits. ESR was 56, CRP 34. Urinalysis was collected, but appeared contaminated. She had a CT of the head that was negativ e. MRI of the brain was negative for acute changes, but did show remote infarcts. Blood cultures were obtained 2 sets are no growth to date. She was given IV cefepime in the emergency department and admitted to the hospital for further evaluation. Since admission, the patient has remained afebrile and hemodynamically stable. Her white blood cell count has remained normal. Kidney function is doing well. Psychiatry was consulted to recommended IV Haldol as needed. She had a chest x- ray that showed a left basilar atelectasis with small bilateral pleural effusions. Podiatry was consulted and took the patient to the operating room on 05/06/18 for graft placement. The patient's urine culture came back positive for yeast. She was started on IV fluconazole in addition to IV Rocephin which was started on admission. We've been asked to evaluate and make further recommendations. During my exam today, the patient's is at bedside and provides most of the information. He states she was in her usual state of health when he left her Tuesday night and when he came in morning she was confused and combative and refused to take her medications. He denies any known fevers, chills, or rigors. States the patient not been complaining of any headache or neck pain. No chest pain, shortness of breath, or cough. No nausea, vomiting, diarrhea, or constipation. He states the patient's appetite had been improving and she had a good dinner prior to him leaving her the night before. No complaints of dysuria, urinary frequency, or hematuria. Currently, the patient denies any pain. She did receive Haldol early this morning, associated she is somewhat altered. Per her , she had a good day yesterday was completely alert oriented for most of the day. No oral thrush or skin lesions noted. CC: Lan Corona Past Med Surg Social Fam HX - Past Medical History Attestation: Yes The following information was validated with the patient. 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, blind left eye Psychiatric history: no psych history - Past Surgical History Surgical History: coronary bypass (CABG), orthopedic, other, splenectomy, appendectomy Additional surgical history: broke left foot (screws in left foot) left foot amputation, quadruple bypass - Social History Smoking Status: Never smoker Smokeless Tobacco Status: No Alcohol use: none Drug use: none Occupational status: retired Current living situation: [facility] Activity Level: Wheelchair bound, Bed bound Recent Out of Country Travel Within the Last 8 Weeks: No Exposure or Possible Exposure to Illness During Travel: No - Family History Father Adopted: No Living Status: Hx Family Cardiac Disorders: No Hx Family Respiratory Disorders: No Hx Family Cancer: Yes Hx Family Endocrine Disorder: No Hx Family Neuromuscular Disorders: No Hx Family Neurologic Disorders: No Hx Family HEENT Disorders: No Hx Family Autoimmune Disorders: No Mother Living Status: Hx Family Cardiac Disorders: No Hx Family Respiratory Disorders: No Hx Family Cancer: Yes (Uterine Cancer) Hx Family GI Disorders: No Hx Family Endocrine Disorder: No Hx Family Neuromuscular Disorders: No Hx Family Neurologic Disorders: No Hx Family HEENT Disorders: No Hx Family Autoimmune Disorders: No Infectious Disease-CN:Meds RX: Simvastatin [Zocor] 40 mg PO HS 02/23/17 [History] RX: Ergocalciferol (VITAMIN D2) [Vitamin D2] 50,000 unit PO QWEEK 03/25/18 [History] RX: Acetaminophen [Tylenol] 650 mg PO Q4H PRN 04/15/18 [History] RX: Cefazolin Sodium/D5w [Cefazolin 2 G/50 ml-D5w Bag] 1 vial IV DAILY 04/15/18 [History] RX: Dorzolamide/Timolol/Pf [Dorzolamide-Timolol 2%-0.5%] 1 drop RIGHT EYE BID 04/15/18 [History] RX: Insulin NPH Hum/Reg Insulin Hm [Humulin 70-30 Vial] 20 unit SQ BID 04/15/18 [History] RX: Nitroglycerin [Nitrostat] 0.4 mg SL PRN PRN 04/15/18 [History] RX: Warfarin perPT [Coumadin perPT] 2 mg PO DAILY 04/15/18 [History] RX: Nystatin Cream [Mycostatin Cream] 1 appl TP TID #1 tube 04/19/18 [Rx] Collagenase Oint [Santyl] 30 gm TP DAILY 05/04/18 [History] Melatonin [Melatin] 6 mg PO HS PRN 05/04/18 [History] Methyl Salicylate/Menthol [Muscle Rub Cream] 1 applic TP TID 05/04/18 [History] Ondansetron HCl [Zofran] 4 mg PO Q4H PRN 05/04/18 [History] Pantoprazole Sodium [Protonix] 40 mg PO DAILY 05/04/18 [History] RX: Lisinopril 2.5 mg PO DAILY 05/04/18 [History] RX: Metoprolol Succinate 50 mg PO DAILY 05/04/18 [History] RX: Oxycodone HCl 5 mg PO Q12H PRN 05/04/18 [History] RX: Sucralfate [Carafate] 1 gm PO BID 05/04/18 [History] Allergy/AdvReac Type Severity Reaction Status Date / Time lidocaine Allergy See Verified 04/17/18 09:26 Comments All systems: reviewed and no additional remarkable complaints except as stated Exam - Constitutional Vitals: Temp Pulse Resp BP Pulse Ox 98.2 F 73 16 125/74 100 05/07/18 23:37 05/07/18 23:37 05/07/18 23:37 05/07/18 23:37 05/07/18 23:37 General appearance: cooperative, no acute distress, obese - Head Head exam: Present: atraumatic, normal inspection, normocephalic - Eye Eye exam: Absent: normal appearance (LEft eye atrophied.) - ENT ENT exam: Present: mucous membranes moist - Neck Neck exam: Present: normal inspection - Respiratory Respiratory exam: Present: CTAB. Absent: rales, respiratory distress, rhonchi, wheezes - Cardiovascular Cardiovascular exam: Present: irregular rhythm. Absent: tachycardia - GI/Abdominal GI/Abdominal exam: Present: distended (obese), normal bowel sounds, soft. Absent: tenderness - Extremities Exam Extremities exam: Absent: normal inspection (Left foot dressing C/D/I.), pedal edema, tenderness - Neurological Exam Neurological exam: Present: alert, no focal deficits. Absent: oriented X3 (Oriented to person and time.) - Psychiatric Psychiatric exam: Present: normal affect, normal mood - Skin Skin exam: Present: dry, intact, normal color, warm Infectious Disease CN: Results - Labs CBC & Chem 7: 05/09/18 07:44 05/09/18 07:44 Cultures: Cultures 05/04/18 11:45 Urine Culture - Final Urine,Catheterized Yeast Species 05/04/18 11:40 Blood Culture - Preliminary Peripheral Venipuncture Culture is incubating and being continuously monitored for growth. Final report to follow. 05/04/18 11:19 Blood Culture - Preliminary Peripheral Venipuncture Culture is incubating and being continuously monitored for growth. Final report to follow. Serology: Serology 05/05/18 05/04/18 Range/Units 12:34 11:45 Urine Color Towns A Yellow (Yellow) Urine Clarity Turbid A Cloudy A (Clear) Urine pH 5.0 5.0 (5.0-8.0) pH Units Ur Specific [place] 1.016 1.021 (1.010-1.025) Urine Protein 100 H (Neg-Trace) mg/dL Urine Glucose (UA) TNP 250 H (Normal) mg/dL Urine Ketones 15 H (Negative) mg/dL Urine Blood Large H (Negative) Urine Nitrite Negative (Negative) Urine Bilirubin Negative (Negative) Urine Urobilinogen Normal (Normal) mg/dL Ur Leukocyte Esterase Large H (Negative) Urine Microscopic RBC 0-3 (0-3) per hpf Urine Microscopic WBC TNTC H TNTC H (0-3) per hpf Ur Squamous Epith Cells Many H Many H (None-Few) per lpf Urine Bacteria Many H Present (None-Few) per hpf Hyaline Casts Test Not Performed Urine Yeast Many H (None Seen) per hpf Ur Culture Indicated? NO NO. A (NO) Consult Discharge Plan - Plan Additional Instructions: Patient admitted to the hospital. Return to the ER for any new altered mental status, fevers, chills, discolored urine, pain, or any new symptoms that may arise. Follow up in wound care with Dr. Ayers. Make appointment prior to D/C in 1 week. Referrals: Cuate Montano MD [Non-Partnered Physician] - Agus Ayers DPM [Partnered Physician] - Martín Odonnell MD [Primary Care Provider] - - Attending Attestation I examined this patient and my medical decision-making was reviewed with the Resident Physician. I agree with the documented findings, disposition and treatment plan as described except to the extent set forth below. This is an addendum to original report dictated by Kacie Schmidt CNP. Please refer to Kacie's note for full detail. Patient is an 78-year-old woman with extensive past medical history mentioned below who is known to our service was treated by us previously presented to [facility] on May 04 for UTI ultimately status. During the workup patient was noted to have left foot osteomyelitis so we were consulted for antibiotics recommendations. Currently patient sitting in bed and appears comfortable. R eview of system as above. Assessment and plan: Ultimately sinus Left foot osteomyelitis causing organism MSSA and Proteus mirabilis Candiduria Diabetes mellitus type 2 insulin-dependent Atrial fibrillation Recommendations: Further workup of AMS per the primary team. - Discontinue Rocephin. - Re-start Ancef 2 grams IV Q8H. - Duration of treatment depends on the clinical picture, but likely a total of 6-8 weeks. - Monitor renal function and dose-adjust antibiotics.
--- NOTE | 2018-05-08 10:38 | Palliative - Consult Note ---
<Ambrose Nieves - Last Filed: 05/08/18 16:27> Date of Encounter: 05/08/18 Time of Encounter: 13:00 - Assessment and Plan (1) Goals of care, counseling/discussion Current Visit: Yes Status: Acute Assessment and plan: We had a detailed conversation with the patient's family regarding goals of care this afternoon. Patient's , grand son, Dr. Rollins and I were in the room. We talked about patient's altered mental status, which we think is likely delirium and should get better when patient gets to a more familiar place. Patient was unable to participate in the PT, showing some sings of aggression/reluctance. In my opinion she will benefit from PT/OT in the morning as opposed to later during the day. She had large amount of leukocyteresterase in her urine and is on course of Rocephin. We could perhaps check her TSH, free T4, and B12 to rule in/out any organic causes for her encephalopathy. We also talked about further management of osteomyelitis of her left foot, which will be be managed by podiatry/ID. Patient's endorses that she has a living will, her elder son Donell is the power of associate attorney, and they would like to pursue adequate medical management for patient's condition as long as those management modalities have a fruitful outcome. However, if it gets to the point where aggressive measures are turning out to be futile, then they would like to stop any further intervention. Patient's also endorses that their wish is to take her to [facility] to be with her daughter because he is unable to fully take care of her. (2) Altered mental status Current Visit: Yes Status: Acute Assessment and plan: -likely multifactorial due to delirium /sundowning/UTI. Patient's endorses that she's had intermittent confusion last year when she was hospitalized for her colonoscopy, but her mentation has been stable otherwise. Patient's head CT was negative for any intracranial abnormalities. - on physical exam patient was not alert to place. - Currently on haldol PRN, continue to monitor Qualifiers: Altered mental status type: delirium Qualified Code(s): R41.0 - Disorientation, unspecified (3) Candiduria Current Visit: Yes Status: Acute Assessment and plan: -Patient's urine culture was positive for yeast species -On physical exam, patient denied any supra pubic pain - currently on Diflucan 100mg . Continue to monitor. 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 Ayers. - currently on Rocephin 2000mg , continue to monitor Qualifiers: Qualified Code(s): M86.9 - Osteomyelitis, unspecified Palliative-CN HPI - Data of Consult Patient: new to practice Consult date: 05/08/18 Requesting Physician: Lan Corona Primary Care Provider: Martín Odonnell MD - Consult Narrative Palliative Care/Comfort Measures: Palliative care Reason for consult: altered mental status History of present illness: Ms. Kaplan is a 78 year old female a past medical history of diastolic heart failure, atrial fibrillation, CAD, cardiomyopathy who presented to [facility] on 05[facility]04 form [facility] with acute confusion. Initial workup was negative for any intracranial abnormalities, had large amount of leukocyte esterase in her urine, and is currently on IV Rocephin. Patient is also day 2 s/p graft placement because of osteomyelitis, rate control for atrial fibrillation and on Coumadin, Diflucan 100 mg IV daily for abnormal urinalysis. Palliative medicine was consulted because of declining mental status and concerns for sundowning. According to patient's , patient had not show any symptoms of aggression or altered mental status before she went to the [facility]. 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 He endorses that while at [facility], patel bronson had this feeling that somebody wanted to attack her. tried to reassure her that everything was fine, but she continue to manifest intermittent episodes of aggressive behavior until the recent admission. Patient's endorses that patient has never had any hallucinatory symptoms except for that one time when she was hospitalized last year for her colonoscopy. During her current hospital stay, she was evaluated by the psychiatry and their recommendation was to start her on low dose haldol (2.5 mg ) to manage her delirium symptoms. Patient was in no acute distress when Dr Rollins and I met her this morning. She denies any pain, has Oxycodone 5mg q8h PRN for pain control, which she had used only 1 time on 05/07. She's currently on 2.5 L of oxygen in order to minimize her dyspnea. Patient denies any trouble with her bowel movements. She has been taking Ensure for nutrition needs . 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, blind left eye Psychiatric history: no psych history - Past Surgical History Surgical History: coronary bypass (CABG), orthopedic, other, splenectomy, appendectomy Additional surgical history: broke left foot (screws in left foot) left foot amputation, quadruple bypass - Social History Smoking Status: Never smoker Smokeless Tobacco Status: No Alcohol use: none Drug use: none - Family History Father Adopted: No Living Status: Hx Family Cardiac Disorders: No Hx Family Respiratory Disorders: No Hx Family Cancer: Yes Hx Family Endocrine Disorder: No Hx Family Neuromuscular Disorders: No Hx Family Neurologic Disorders: No Hx Family HEENT Disorders: No Hx Family Autoimmune Disorders: No Mother Living Status: Hx Family Cardiac Disorders: No Hx Family Respiratory Disorders: No Hx Family Cancer: Yes (Uterine Cancer) Hx Family GI Disorders: No Hx Family Endocrine Disorder: No Hx Family Neuromuscular Disorders: No Hx Family Neurologic Disorders: No Hx Family HEENT Disorders: No Hx Family Autoimmune Disorders: No Medications and Allergies RX: Simvastatin [Zocor] 40 mg PO HS 02/23/17 [History] RX: Ergocalciferol (VITAMIN D2) [Vitamin D2] 50,000 unit PO QWEEK 03/25/18 [History] RX: Acetaminophen [Tylenol] 650 mg PO Q4H PRN 04/15/18 [History] RX: Cefazolin Sodium/D5w [Cefazolin 2 G/50 ml-D5w Bag] 1 vial IV DAILY 04/15/18 [History] RX: Dorzolamide/Timolol/Pf [Dorzolamide-Timolol 2%-0.5%] 1 drop RIGHT EYE BID 04/15/18 [History] RX: Insulin NPH Hum/Reg Insulin Hm [Humulin 70-30 Vial] 20 unit SQ BID 04/15/18 [History] RX: Nitroglycerin [Nitrostat] 0.4 mg SL PRN PRN 04/15/18 [History] RX: Warfarin perPT [Coumadin perPT] 2 mg PO DAILY 04/15/18 [History] RX: Nystatin Cream [Mycostatin Cream] 1 appl TP TID #1 tube 04/19/18 [Rx] Collagenase Oint [Santyl] 30 gm TP DAILY 05/04/18 [History] Melatonin [Melatin] 6 mg PO HS PRN 05/04/18 [History] Methyl Salicylate/Menthol [Muscle Rub Cream] 1 applic TP TID 05/04/18 [History] Ondansetron HCl [Zofran] 4 mg PO Q4H PRN 05/04/18 [History] Pantoprazole Sodium [Protonix] 40 mg PO DAILY 05/04/18 [History] RX: Lisinopril 2.5 mg PO DAILY 05/04/18 [History] RX: Metoprolol Succinate 50 mg PO DAILY 05/04/18 [History] RX: Oxycodone HCl 5 mg PO Q12H PRN 05/04/18 [History] RX: Sucralfate [Carafate] 1 gm PO BID 05/04/18 [History] Allergy/AdvReac Type Severity Reaction Status Date / Time lidocaine Allergy See Verified 04/17/18 09:26 Comments - Constitutional Constitutional ROS PAL: as per HPI - Cardiovascular Cardiovascular ROS: as per HPI - Respiratory Respiratory: as per HPI - Gastrointestinal Gastrointestinal: as per HPI - Psychiatric Psychiatric general PM: confusion Palliative Care-Exam - Constitutional Vitals: Temp Pulse Resp BP Pulse Ox 98.2 F 73 16 125/74 100 05/07/18 23:37 05/07/18 23:37 05/07/18 23:37 05/07/18 23:37 05/07/18 23:37 General appearance: Present: cooperative, no acute distress, obese - Head Head Exam: Present: atraumatic, normocephalic - Respiratory Respiratory exam: Present: CTAB - Cardiovascular Cardiovascular exam: Present: +S1, +S2 - GI/Abdominal Exam GI/Abdominal exam: Present: soft additional comments: non tender Internal Medicine - CN: Reslt - Labs CBC & Chem 7: 05/08/18 04:15 05/08/18 04:15 Labs: Short CBC 05/08/18 Range/Units 04:15 WBC 8.5 (4.3-11.1) K/mcL Hgb 9.4 L (11.5-15.4) g/dL Hct 30.6 L (35.3-44.9) % Plt Count 316 (140-400) K/mcL BMP 05/08/18 04:15 Sodium 140 Potassium 3.9 Chloride 104 Carbon Dioxide 27 BUN 52 H Creatinine 1.05 Glucose 225 H Calcium 8.6 - ABG Interpretation ABG results: PT/INR, D-dimer PT 37.4 Seconds (9.4-12.1) H 05/08/18 04:15 Consult Discharge Plan - Plan Additional Instructions: Patient admitted to the hospital. Return to the ER for any new altered mental status, fevers, chills, discolored urine, pain, or any new symptoms that may arise. Follow up in wound care with Dr. Ayers. Make appointment prior to D/C in 1 week. Referrals: Cuate Montano MD [Non-Partnered Physician] - Agus Ayers DPM [Partnered Physician] - Martín Odonnell MD [Primary Care Provider] - Palliative Quality Palliative Quality: Screen for Code Status: Yes, Screen for Goals of Care: Yes, Screen for Pain: Yes, If Pain Regimen Started, Initiate Bowel Regimen: NA, Screen for Nausea/Vomitting: Yes Code Status: 05/04/18 13:29 Resuscitation Status: Active [RES] Routine Comment: Resuscitation Status: Full Code <Carissa Rollins - Last Filed: 05/08/18 21:50> Date of Encounter: 05/08/18 Palliative-CN HPI - Data of Consult Requesting Physician: Lan Corona Primary Care Provider: Martín Odonnell MD - Consult Narrative History of present illness: Ms. Kaplan is a 78 year old female CC: Lan Corona - Time Spent with Patient Time: Total time spent is greater than 50% in coordination of care (as documented) at patient's floor/unit and/or counseling patient: Palliative Care-Exam - Constitutional Vitals: Temp Pulse Resp BP Pulse Ox 97.8 F 71 16 145/82 100 05/08/18 18:33 05/08/18 18:33 05/08/18 18:33 05/08/18 18:33 05/08/18 18:33 Internal Medicine - CN: Reslt - Labs CBC & Chem 7: 05/08/18 04:15 05/08/18 04:15 Labs: Short CBC 05/08/18 Range/Units 04:15 WBC 8.5 (4.3-11.1) K/mcL Hgb 9.4 L (11.5-15.4) g/dL Hct 30.6 L (35.3-44.9) % Plt Count 316 (140-400) K/mcL BMP 05/08/18 04:15 Sodium 140 Potassium 3.9 Chloride 104 Carbon Dioxide 27 BUN 52 H Creatinine 1.05 Glucose 225 H Calcium 8.6 - ABG Interpretation ABG results: PT/INR, D-dimer PT 37.4 Seconds (9.4-12.1) H 05/08/18 04:15 - Attending Attestation I performed a history and physical examination of the patient and discussed his management with the resident. I reviewed the residents note and agree with the documented findings and plan of care. Met with pt's along with Dr Nieves, at the bedside. Pt was alert, oriented to self, but not to place. As per the her mental status is waxing and waning. Discussed current clinical condition, trajectory of illness, prognosis, as well as treatment options. Discussed advanced care planning. As per , pt has a living will that states that she would not like to continue any treatment if it was deemed futile. However, she would be agreeable to continue treatment and a trial of intubation and CPR if there was any chance of recovery. and older son are POA. Family is hopefull for recovery at this time, and they would like to continue treatment with podiatry and ID. Patient remains Full Code. Palliative Quality Code Status: 05/04/18 13:29 Resuscitation Status: Active [RES] Routine Comment: Resuscitation Status: Full Code
--- NOTE | 2018-05-08 11:11 | Cardiology Consult Note ---
Addendum entered and electronically signed by Main Caldera MD 05/08/18 13:34: I examined this patient and my medical decision-making was reviewed with the [employer]. I agree with the documented findings, disposition and treatment plan as described except to the extent set forth below. A/P: Acute on chronic systolic/diastolic CHF PAF on coumadin CAD Continue diuresis as you are and monitor BMP. Strict IO with negative urine output daily (~2L) if renal function tolerates. Uptitrate lasix as needed, or add metalazone. Thank you for the consult, Main Caldera MD [facility] Original Note: Date of Encounter: 05/08/18 Time of Encounter: 11:09 Assessment and Plan (1) Acute on chronic systolic and diastolic heart failure, NYHA class 2 Current Visit: Yes Status: Acute BNP >5000, CXR with minimal interstitial edema, small bilateral pleural effusions. Pt endorses dyspnea and conversational dyspnea is noted on exam. Known EF 20-25% on TTE earlier this month. Renal function normal. Recommend IV diuresis--Lasix IV 40mg BID. Will monitor renal function closely. Recommend strict I/Os, Na and fluid restriction, daily weights. (2) Atrial fibrillation Current Visit: No Status: Chronic PAF. Continue BB. CHADSVASC2 6, on Coumadin for AC. INR 3.3. Qualifiers: Atrial fibrillation type: paroxysmal Qualified Code(s): I48.0 - Paroxysmal atrial fibrillation (3) CAD (coronary artery disease) Current Visit: No Status: Chronic Hx CABG 17 years ago. ASA, Statin, BB, ACEi. Qualifiers: Coronary Disease-Associated Artery/Lesion type: bypass graft [place] vs. tr ansplanted heart: [place] heart Associated angina: without angina Qualified Code(s): I25.810 - Atherosclerosis of coronary artery bypass graft(s) without angina pectoris (4) Cardiomyopathy Current Visit: Yes Status: Chronic TTE 04/2018 reduced LVEF, 20-25%. 03/2018 EF was 45% on TTE. Denies chest pain. NICMP vs ICMP (hx of CAD and CABG). Stress test 04/2018 perfusion imaging was negative for ischemia. Perfusion imaging demonstrates infarct involving the inferolateral segments. Gated EF = 48%. Continue BB and ACEi. Will need repeat TTE in 3 months to re-evalute EF. If remains <35%, consider ICD evaluation. Qualifiers: Cardiomyopathy type: unspecified Qualified Code(s): I42.9 - Cardiomyopathy, unspecified Discussion w patient/family: The assessment and plan as outlined above was discussed with the patient and/or family members who expressed understanding and agreement. All questions were answered. Thank you for involving us in the care of your patient. Please call with any questions. I will discuss all the above with Dr. Caldera and make changes as necessary. History of Present Illness Consult date: 05/08/18 Consult reason: CHF History of present illness: Ms. Kaplan is a 78 year old female with PMH of A. fib on Coumadin, recent osteomyelitis on long-term IV ATB, CAD s/p CABG, CMP, and anemia that presented to [facility] on 05/04/2018 from [facility] with acute confusion. BNP >5000, CXR Cardiomegaly with minimal interstitial edema. Left base atelectasis with small bilateral effusions. Cardiology consulted for further recs. Pt does endorse worsening dyspnea. Denies BLE edema or chest pain. Known CMP EF 20-25% earlier this month. Prior CV testing: TTE 04/16/18: LVEF 20-25%. Moderately dilated left ventricle. Atypical septal motion consistent with post-operative status. Severe left ventricular diastolic dysfunction. Mild right ventricular hypokinesis. Mild to moderate biatrial enlargement. Moderate tricuspid regurgitation. Moderate pulmonary hypertension. Pharmacologic Nuclear stress test 04/17/18: Perfusion imaging was negative for ischemia. Perfusion imaging demonstrates infarct involving the inferolateral segments. Gated EF = 48%. The left ventricle is dilated. 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, blind left eye Psychiatric history: no psych history - Past Surgical History Surgical History: coronary bypass (CABG), orthopedic, other, splenectomy, appendectomy Additional surgical history: broke left foot (screws in left foot) left foot amputation, quadruple bypass - Social History Smoking Status: Never smoker Smokeless Tobacco Status: No Alcohol use: none Drug use: none - Family History Mother Living Status: Hx Family Cardiac Disorders: No Hx Family Respiratory Disorders: No Hx Family Cancer: Yes (Uterine Cancer) Hx Family GI Disorders: No Hx Family Endocrine Disorder: No Hx Family Neuromuscular Disorders: No Hx Family Neurologic Disorders: No Hx Family HEENT Disorders: No Hx Family Autoimmune Disorders: No Father Adopted: No Living Status: Hx Family Cardiac Disorders: No Hx Family Respiratory Disorders: No Hx Family Cancer: Yes Hx Family Endocrine Disorder: No Hx Family Neuromuscular Disorders: No Hx Family Neurologic Disorders: No Hx Family HEENT Disorders: No Hx Family Autoimmune Disorders: No Medications and Allergies Simvastatin [Zocor] 40 mg PO HS 02/23/17 [History] Ergocalciferol (VITAMIN D2) [Vitamin D2] 50,000 unit PO QWEEK 03/25/18 [History] Acetaminophen [Tylenol] 650 mg PO Q4H PRN 04/15/18 [History] Cefazolin Sodium/D5w [Cefazolin 2 G/50 ml-D5w Bag] 1 vial IV DAILY 04/15/18 [History] Dorzolamide/Timolol/Pf [Dorzolamide-Timolol 2%-0.5%] 1 drop RIGHT EYE BID 04/15/18 [History] Insulin NPH Hum/Reg Insulin Hm [Humulin 70-30 Vial] 20 unit SQ BID 04/15/18 [History] Nitroglycerin [Nitrostat] 0.4 mg SL PRN PRN 04/15/18 [History] Warfarin perPT [Coumadin perPT] 2 mg PO DAILY 04/15/18 [History] Nystatin Cream [Mycostatin Cream] 1 appl TP TID #1 tube 04/19/18 [Rx] Collagenase Oint [Santyl] 30 gm TP DAILY 05/04/18 [History] Lisinopril 2.5 mg PO DAILY 05/04/18 [History] Melatonin [Melatin] 6 mg PO HS PRN 05/04/18 [History] Methyl Salicylate/Menthol [Muscle Rub Cream] 1 applic TP TID 05/04/18 [History] Metoprolol Succinate 50 mg PO DAILY 05/04/18 [History] Ondansetron HCl [Zofran] 4 mg PO Q4H PRN 05/04/18 [History] Oxycodone HCl 5 mg PO Q12H PRN 05/04/18 [History] Pantoprazole Sodium [Protonix] 40 mg PO DAILY 05/04/18 [History] Sucralfate [Carafate] 1 gm PO BID 05/04/18 [History] Allergy/AdvReac Type Severity Reaction Status Date / Time lidocaine Allergy See Verified 04/17/18 09:26 Comments All Systems Review: The remainder of the systems were reviewed and are negative - Cardiovascular Cardiovascular: as per HPI, dyspnea at rest, dyspnea on exertion Physical Examination Vital Signs Temp Pulse Resp BP Pulse Ox 05/07/18 23:37 98.2 F 73 16 125/74 100 05/07/18 19:31 98.2 F 69 16 125/79 100 05/07/18 16:00 98.3 F 75 14 125/78 92 05/07/18 12:16 97.5 F L 77 15 154/91 92 Intake and Output 05/07/18 05/08/18 05/08/18 23:59 07:59 15:59 Intake Total 310 / 310 120 / 120 Output Total 200 / 200 Balance 110 / 110 120 / 120 Intake: IV Fluids 70 / 70 Rocephin 2,000 MG In Water for 20 / 20 inj. (sterile) 20 ML @ 600 mls/ hr IVP Q24H [facility] Rx#:[id number] Diflucan 100 MG/50 ML 100 mg In 50 / 50 50 ml @ 50 mls/hr IVPB DAILY [facility] Rx#:[id number] Oral 240 / 240 120 / 120 Output: Urine 200 / 200 Other: Meal Dinner Breakfast Percent of Meal Consumed 65% 25% Stool Size Large Stool Consistency formed Stool Characteristics Normal for Patient Stool Color Brown Yellow # Voids 1 # Urine Diapers 1 # Bowel Movements 1 # Bowel Movement Diapers 1 Blood Glucose* 257 209 General: Conversant, No Apparent Distress HEENT: Atraumatic, Normocephaly, Mucus Membranes Moist Neck: Normal carotid pulses Cardiac: Reg Rate and Rhythm, Normal S1 and S2, No Murmur Lungs: Other (diminished) Neuro: Other (confused at times) Abdomen: Soft, Non-Tender Skin: No rashes noted on visualized skin Musculoskeletal: No Chest Wall Tenderness Extremities: Other (LLE in boot) Results 05/08/18 04:15 05/08/18 04:15 Lab Results 05/08/18 05/08/18 05/08/18 04:15 04:15 04:15 WBC 8.5 Hgb 9.4 L Hct 30.6 L Plt Count 316 INR 3.3 Sodium 140 Potassium 3.9 Chloride 104 Carbon Dioxide 27 BUN 52 H Creatinine 1.05 Glucose 225 H Calcium 8.6 Short CBC 05/08/18 Range/Units 04:15 WBC 8.5 (4.3-11.1) K/mcL Hgb 9.4 L (11.5-15.4) g/dL Hct 30.6 L (35.3-44.9) % Plt Count 316 (140-400) K/mcL BMP 05/08/18 Range/Units 04:15 Sodium 140 (136-145) mEq/L Potassium 3.9 (3.5-5.1) mEq/L Chloride 104 (98-107) mEq/L Carbon Dioxide 27 (23-29) mEq/L BUN 52 H (8-23) mg/dL Creatinine 1.05 (0.60-1.20) mg/dL Glucose 225 H (70-105) mg/dL Calcium 8.6 (8.6-10.3) mg/dL Active Medications Aspirin (Aspirin) 81 mg PO DAILY [facility] Stop: 11/05/18 11:01 Last Admin: 05/08/18 08:06 Dose: 81 mg Dextrose/Water (Dextrose 50% (Syg)) 25 ml IVP AD PRN PRN Reason: Hypoglycemia Stop: 11/03/18 13:31 Glucagon (Glucagen) 1 mg IM ONCE PRN PRN Reason: Hypoglycemia Stop: 11/03/18 13:31 Glucose (Gluctose) 15 gm PO ONCE PRN PRN Reason: Hypoglycemia Stop: 11/03/18 13:31 Glucose (Gluctose) 30 gm PO ONCE PRN PRN Reason: Hypoglycemia Stop: 11/03/18 13:31 Haloperidol (Haldol) 2.5 mg PO Q6H PRN PRN Reason: Agitation Stop: 11/04/18 14:53 Ceftriaxone Sodium 2,000 mg/ (Sterile Water) 20 mls @ 600 mls/hr IVP Q24H [facility] Stop: 11/05/18 09:01 Last Admin: 05/08/18 08:04 Dose: 600 mls/hr Dextrose (Dextrose 5%) 1,000 mls @ 100 mls/hr IVC .Q10H PRN PRN Reason: HYPOGLYCEMIA Stop: 11/03/18 13:31 Fluconazole (Diflucan 100 Mg/50 Ml) 100 mg in 50 mls @ 50 mls/hr IVPB DAILY [facility] Stop: 11/06/18 09:01 Last Admin: 05/08/18 08:06 Dose: 50 mls/hr Insulin Human Lispro (Humalog) 0 units SQ HS [facility]; Protocol Stop: 11/03/18 21:01 Last Admin: 05/07/18 20:31 Dose: 3 units Insulin Human Lispro (Humalog) 0 units SQ TIDAC [facility]; Protocol Stop: 11/03/18 16:31 Last Admin: 05/08/18 08:07 Dose: 4 units Lisinopril (Zestril) 2.5 mg PO DAILY [facility] Stop: 11/05/18 11:01 Last Admin: 05/08/18 08:05 Dose: 2.5 mg Metoprolol Succinate (Toprol Xl) 50 mg PO DAILY [facility] Stop: 11/05/18 11:01 Last Admin: 05/06/18 12:45 Dose: 50 mg Metoprolol Tartrate (Lopressor) 5 mg IVP Q6HR [facility] Stop: 11/05/18 12:01 Last Admin: 05/08/18 08:04 Dose: 5 mg Naloxone HCl (Narcan) 0.4 mg IVP Q2MIN PRN PRN Reason: SEE COMMENTS Stop: 11/03/18 13:30 Nystatin (Nystop) 1 appl TP TID [facility] Stop: 11/03/18 21:01 Last Admin: 05/08/18 08:07 Dose: Not Given Omeprazole (Prilosec) 20 mg PO DAILY@0630 [facility] Stop: 11/04/18 09:01 Last Admin: 05/08/18 08:05 Dose: 20 mg Oxycodone HCl (Roxicodone) 5 mg PO Q8H PRN PRN Reason: Pain Stop: 11/04/18 06:01 Last Admin: 05/07/18 23:43 Dose: 5 mg Phenazopyridine HCl (Pyridium) 100 mg PO TID PRN PRN Reason: Pain Stop: 11/03/18 20:08 Simvastatin (Zocor) 40 mg PO HS [facility]; Protocol Stop: 11/04/18 21:01 Last Admin: 05/07/18 20:25 Dose: 40 mg Sucralfate (Carafate) 1 gm PO BIDAC [facility] Stop: 11/04/18 09:01 Last Admin: 05/08/18 08:05 Dose: 1 gm Warfarin Sodium (Coumadin Perpt) 0 each PO DAILY@1800 PRN PRN Reason: SEE COMMENTS Stop: 11/03/18 18:01 - Imaging and Cardiology Stress Test: report reviewed Echo: report reviewed - EKG Interpretation EKG results cardiology: personally reviewed, other (12 hr tele AVG HR 72, SR) Consult Discharge Plan - Plan Additional Instructions: Patient admitted to the hospital. Return to the ER for any new altered mental status, fevers, chills, discolored urine, pain, or any new symptoms that may arise. Referrals: Martín Odonnell MD [Primary Care Provider] -
[2018-05-08] MEDS ORDERED: ceFAZolin 2,000 MG in 0.9 % Sodium Chloride 100 ML IVPB SCH (13:00)
[2018-05-08] MEDS: Furosemide 40 MG/4 ML VIAL IVP SCH ×2 (13:12→17:23)
--- NOTE | 2018-05-08 16:32 | Podiatry Progress Note ---
Date of Encounter: 05/08/18 Time of Encounter: 16:29 - Assessment and Plan (1) Chronic ulcer of left foot with fat layer exposed Current Visit: Yes Status: Acute Assessment: Patient obtunded, unable to cooperate in assessment. Chronic ulceration s/p chopart's amputation Graft in place to proximal wound bed. Red, beefy tissue noted with slough throughout wound bed. Sutures noted to medial aspect of LLE. Removed old dressing with large amount of serosanginous drainage. 05/04 ESR 56, CRP 34 Plan: Cleansed with 0.9 NS. Applied maxorb to graft site and wound bed. Covered with 4x4 dry gauze, kerlex, and coban. ATB managed per ID. Will continue to monitor and manage wound care. (2) Type 2 diabetes mellitus with foot ulcer Current Visit: Yes Status: Acute Assessment: Blood glucose levels 200 Plan: Primary managing. Recommend tight glycemic control to promote wound healing. 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 05/06 patient was taken to OR for graft placement. Today patient is lethargic in bed. Son at bedside. States patient was given haldol by nurse due to hallucinations. Patient unable to cooperate in care d/t recent medications Objective - Vital Signs Vital Signs: Vital Signs Temp Pulse Resp BP Pulse Ox 05/08/18 11:22 97.9 F 75 16 143/88 98 05/07/18 23:37 98.2 F 73 16 125/74 100 05/07/18 19:31 98.2 F 69 16 125/79 100 Intake and Output 05/08/18 05/08/18 05/08/18 07:59 15:59 23:59 Intake Total 120 / 120 Balance 120 / 120 Intake: Oral 120 / 120 Other: Meal Breakfast Percent of Meal Consumed 25% # Voids 1 Blood Glucose* 207 - Exam Exam: Constitiutional: lethargic, arouses, does not participate in care. Vascular: left choparts amputation, warm LLE Neurologic: unable to assess Dermatologic: dressing c/d/i. no strikethrough noted. Musculoskeletal: unable to assess - Lab Result Diagrams: 05/08/18 04:15 05/08/18 04:15 Labs: Abnormal lab results RBC 3.43 M/mcL (3.82-4.97) L 05/08/18 04:15 Hgb 9.4 g/dL (11.5-15.4) L 05/08/18 04:15 Hct 30.6 % (35.3-44.9) L 05/08/18 04:15 MCH 27.4 pg (28.0-33.3) L 05/08/18 04:15 MCHC 30.7 g/dL (31.6-35.5) L 05/08/18 04:15 RDW 17.6 % (11.5-14.5) H 05/08/18 04:15 MPV 12.6 fL (9.4-12.4) H 05/08/18 04:15 ESR 56 mm/hr (0-15) H 05/04/18 14:04 PT 37.4 Seconds (9.4-12.1) H 05/08/18 04:15 BUN 52 mg/dL (8-23) H 05/08/18 04:15 Est GFR (Non-Af Amer) 50 (> 60) L 05/08/18 04:15 BUN/Creatinine Ratio 50 (6-26) H 05/08/18 04:15 Glucose 225 mg/dL (70-105) H 05/08/18 04:15 POC Glucose 209 mg/dL (70-99) H 05/08/18 07:59 Calculated Osmolality 311 (280-300) H 05/08/18 04:15 C-Reactive Protein 34 mg/L (Less than 10) H 05/04/18 14:04 B-Natriuretic Peptide > 5000 pg/mL (Less than 100) H 05/07/18 04:07 Albumin 2.8 g/dL (3.5-5.7) L 05/05/18 04:00 Globulin 3.9 g/dL (2.4-3.5) H 05/05/18 04:00 Albumin/Globulin Ratio 0.7 (1.1-2.2) L 05/05/18 04:00 Urine Color Linn (Yellow) A 05/05/18 12:34 Urine Clarity Turbid (Clear) A 05/05/18 12:34 Urine Protein 100 mg/dL (Neg-Trace) H 05/04/18 11:45 Urine Ketones 15 mg/dL (Negative) H 05/04/18 11:45 Urine Blood Large (Negative) H 05/04/18 11:45 Ur Leukocyte Esterase Large (Negative) H 05/04/18 11:45 Urine Microscopic WBC TNTC per hpf (0-3) H 05/05/18 12:34 Ur Squamous Epith Cells Many per lpf (None-Few) H 05/05/18 12:34 Urine Bacteria Many per hpf (None-Few) H 05/05/18 12:34 Urine Yeast Many per hpf (None Seen) H 05/05/18 12:34 Rheumatoid Factor 26 IU/mL (Less than 14) H 05/06/18 18:00 Microbiology, Last 48 Hours 05/04/18 11:45 Urine Culture - Final Urine,Catheterized Yeast Species Consult Discharge Plan - Plan Additional Instructions: Patient admitted to the hospital. Return to the ER for any new altered mental status, fevers, chills, discolored urine, pain, or any new symptoms that may arise. Follow up in wound care with Dr. Ayers. Make appointment prior to D/C in 1 week. Referrals: Martín Odonnell MD [Primary Care Provider] - Cuate Montano MD [Non-Partnered Physician] - Agus Ayers DPM [Partnered Physician] -
[2018-05-08] MEDS ORDERED: *HR* Dextrose 50 % in Water (Syg) 50 ML SYRINGE IVP PRN (17:22)
[2018-05-08] MEDS ORDERED: D5% in Water 1,000 ML IVC PRN (17:22)
[2018-05-08] MEDS ORDERED: Dextrose Gel 15 GM/37.5 ML TUBE PO PRN ×2 (17:22)
--- NOTE | 2018-05-08 17:23 | Internal Med Progress Note ---
Hospitalist Progress Note - Encounter Date of Encounter: 05/08/18 Time of Encounter: 17:23 - Subjective Interval History: Patient did slight better on Haldol but again got agitated in the night but today morning she cooperated taking oral dedication. at bedside. Patient is feeling very sleepy after getting Haldol in the curing finisher but has been communicating with . Patient still appeared confused She did take half of her breakfast this morning and has been taking liquid. Reviewed the lab . Review of system-unable to obtain as very sleepy but denies vomiting abdominal pain diarrhea chest pain - Exam Vitals: Temp Pulse Resp BP Pulse Ox 97.6 F 66 16 139/85 93 05/08/18 16:35 05/08/18 16:35 05/08/18 16:35 05/08/18 16:35 05/08/18 16:35 Exam: General appearance: Patient lying comfortably on bed but very sleepy. She may open eyes upon gentle touch but immediately go back to sleep and mumbled fever. But she has been talking with her in the morning. No acute distress. at bedside Head exam: Present: atraumatic, normocephalic - Dry oral mucosa-as per family it has been chronically dry - Neck-supple - Respiratory-slight dullness sounds bibasilar - Cardiovascular-regular rate and rhythm with no murmur appreciated. - GI/Abdominal-soft nontender positive bowel sounds. - Extremities Exam-left foot with dressing and resting on foot rest. +1 Bilateral lower extremity pitting edema - Neurological -alert, sleepy but awakened on addressing verbally. Appear confused and disoriented but does recognize and son. No focal neurological deficit motor 5 x 5 in all 4 extremities. Skin exam: Present: dry, intact - Assessment and Plan (1) Acute metabolic encephalopathy Current Visit: Yes Status: Acute Assessment and Plan: Multifactorial delirium, sundowning, underlying infection osteomyelitis but improving, UTI but no obvious bacterial infection, worsening of underlying dementia. Evaluated by psychiatrists who advise Haldol. Continue Haldol ER and it seems like helping her but also makes her sleepy. No focal neurological deficit. Continue to monitor patient needs PTOT. tin worker on board to make discharge plan. Palliative care team was consulted and advised TSH free T4 and vitamin B12 to rule out any organic causes for her encephalopathy. Continue to monitor the patient. presented with acute confusion; baseline mentation alert and oriented per . Suspect she has some component of underlying dementia as daughter reports intermittent confusion and sundowning over the last year and lately slight worse. Head CT nonacute. Brain MRI with evidence of prior infarct otherwise nonacute. (2) Cardiomyopathy Current Visit: Yes Status: Chronic Assessment and Plan: Severe. Consulted cardiology who advise Lasix 40 mg IV twice a day with a strict I&O's. per hx. 04/16/2018 EF 20-25% and severe left diastolic dysfunction (previous EF 40%). Was evaluated by Cardiology during 04/15/2018 hospitalization and medical management was recommended time. Will need repeat TTE in 3 months to re- evaluate EF; if remains less than 35% then ICD evaluation will be considered per most recent cardiology evaluation. At present changed oral to IV medicine metoprolol 5 mg every 6 hour with hold parameter until she started to take her regular diet. BNP more than 5000 chest x-ray with mild bilateral pleural effusion. Patient is high risk to get volume overloaded and also can get dehydrated on diuresis therefore needs to monitor closely for the volume status. Continue strict I&O's and make further decision for diuresis as needed. Repeat chest x-ray with left base atelectasis with probable small bilateral effusions but no dense consolidation. Spirometry if patient cooperative (3) Foot osteomyelitis, left Current Visit: Yes Status: Acute Assessment and Plan: s/p graft placement on left forward today 05/06 patient had. emergent partial left foot amputation on 03/25/2018 for severe and extensive gas gangrene infection per Dr. Ayers. S/p surgical revision on 03/29/18 and wound graft 04/18/2018. Follows with ID, Podiatry and Wound care outpatient. Consulted ID specialist who discontinued Rocephin and started on Ancef 2 g IV every 8 hours. Podiatry managing dressing changes. (4) A-fib Current Visit: No Status: Chronic Assessment and Plan: per hx. Rate controlled. Cont home coumadin, BB. Therapeutic INR. (5) Abnormal urinalysis Current Visit: Yes Status: Acute Assessment and Plan: UA concerning for UTI. Urine culture with yeast. Started Diflucan 100 mg IV daily . (6) Rheumatoid factor positive Current Visit: Yes Status: Acute Assessment and Plan: History of Sjogren's syndrome in the family her daughter has it. Patient also has history of chronic dry oral mucosa but never brought attention to medical provider in the past. Elevated ESR CRP and rheumatoid factor but ALLYN pending - needs to follow PCP on OPD basis for further evaluation. (7) CVA (cerebral vascular accident) Current Visit: Yes Status: Acute Assessment and Plan: Remote based on brain MRI with evidence of prior infarct otherwise nonacute. Patient is not aware of having CVA in the past. Neurologically intact, no deficits apparent. Continue low dose ASA (8) Goals of care, counseling/discussion Current Visit: Yes Status: Acute Assessment and Plan: Patient has been declining in her mental status with fluctuancy. Palliative care team was consulted for better communication and further plan of care. Appreciate their recommendations. Today Patient has slight improvement in her mental status after getting Haldol therefore will continue to monitor. At some point if aggressive measure are not helping then family would like to stop any further intervention. Patient also wishes to take the patient to [place] to be with her daughter as he is unable to take care of of her fully. (9) DVT prophylaxis Current Visit: Yes Status: Acute Assessment and Plan: SCDs. Patient on warfarin with therapeutic INR. - Time Spent with Patient Total time spent is greater than 50% in coordination of care (as documented) at patient's floor/unit and/or counseling patient: Greater than 35 minutes (Spent more than 35 minute inpatient care reviewing recruiting consultant notes and discussing plan of care. I also discuss plan of care with family and nursing staff) Internal Medicine: Result - Labs CBC & Chem 7: 05/08/18 04:15 05/08/18 04:15 Labs: Short CBC 05/08/18 Range/Units 04:15 WBC 8.5 (4.3-11.1) K/mcL Hgb 9.4 L (11.5-15.4) g/dL Hct 30.6 L (35.3-44.9) % Plt Count 316 (140-400) K/mcL BMP 05/08/18 04:15 Sodium 140 Potassium 3.9 Chloride 104 Carbon Dioxide 27 BUN 52 H Creatinine 1.05 Glucose 225 H Calcium 8.6 - ABG Interpretation ABG results: PT/INR, D-dimer PT 37.4 Seconds (9.4-12.1) H 05/08/18 04:15 Consult Discharge Plan - Plan Additional Instructions: Patient admitted to the hospital. Return to the ER for any new altered mental status, fevers, chills, discolored urine, pain, or any new symptoms that may arise. Follow up in wound care with Dr. Ayers. Make appointment prior to D/C in 1 week. Referrals: Cuate Montano MD [Non-Partnered Physician] - Agus Ayers DPM [Partnered Physician] - Martín Odonnell MD [Primary Care Provider] - (2) Cardiomyopathy Qualifiers: Cardiomyopathy type: unspecified Qualified Code(s): I42.9 - Cardiomyopathy, unspecified (3) Foot osteomyelitis, left Qualifiers: Osteomyelitis type: chronic multifocal Qualified Code(s): M86.372 - Chronic multifocal osteomyelitis, left ankle and foot (4) A-fib Qualifiers: Atrial fibrillation type: persistent Qualified Code(s): I48.1 - Persistent atrial fibrillation
[2018-05-08] MEDS ORDERED: Insulin LISPRO 300 UNITS/3 ML VIAL SQ SCH (18:00)
[2018-05-09] MEDS: *HR* Metoprolol 5 MG/5 ML VIAL IVP SCH ×5 (01:07→18:05)
[2018-05-09] MEDS ORDERED: Haloperidol Lactate 5 MG/ML VIAL IVP ONE ×3 (04:33→11:00)
[2018-05-09] MEDS: Sucralfate 1 GM TABLET PO SCH ×2 (08:29→15:41)
[2018-05-09] MEDS: Aspirin 81 MG TAB.CHEW PO SCH (08:29)
[2018-05-09] MEDS: Nystatin POWDER 30 GM BOTTLE TP SCH ×2 (08:29→15:44)
[2018-05-09] MEDS: Metoprolol XL (24 HR) Succ 50 MG TAB.ER.24H PO SCH (08:29)
[2018-05-09] MEDS: Furosemide 40 MG/4 ML VIAL IVP SCH ×2 (08:29→15:42)
[2018-05-09] MEDS: Fluconazole 100 MG/50 ML 100 MG/50 ML BAG IVPB SCH (08:30)
[2018-05-09] MEDS: Insulin LISPRO 300 UNITS/3 ML VIAL SQ SCH ×4 (08:37→21:33)
[2018-05-09 09:11] LABS: Hemoglobin 9.8 g/dL (11.5-15.4); Mean Corpuscular HGB Conc 30.6 g/dL (31.6-35.5); Mean Corpuscular Hemoglobin 27.4 pg (28.0-33.3); Mean Corpuscular Volume 89.4 fL (83.0-100.0); Mean Platelet Volume 12.5 fL (9.4-12.4); Platelet Count 325 K/mcL (140-400); Red Blood Count 3.58 M/mcL (3.82-4.97); Red Cell Distribution Width 17.3 % (11.5-14.5)
[2018-05-09 09:18] LABS: INR 2.9
[2018-05-09 09:41] LABS: BUN/Creatinine Ratio 47 (6-26); Blood Urea Nitrogen 47 mg/dL (8-23); Calcium 8.7 mg/dL (8.6-10.3); Carbon Dioxide 30 mEq/L (23-29); Chloride 103 mEq/L (98-107); Glucose 326 mg/dL (70-105); Osmolality,Calculated 317 (280-300); Potassium 4.2 mEq/L (3.5-5.1); Sodium 141 mEq/L (136-145); eGFR For Non-African Americans 54 (> 60)
[2018-05-09 09:46] LABS: ANA IgG by ELISA NONE DETECTED (None Detected)
[2018-05-09] MEDS ORDERED: Nitroglycerin 0.4 MG TAB.SUBL SL PRN (14:40)
--- NOTE | 2018-05-09 14:40 | Internal Med Progress Note ---
Hospitalist Progress Note - Encounter Date of Encounter: 05/09/18 Time of Encounter: 14:37 - Subjective Interval History: Patient was doing quite well yesterday afternoon and also late evening but again is started to appear confused in the night therefore Haldol 2.5 mg IV given as patient was refusing to take oral medication and that put her on sleep. Second dose of Haldol was given for hour later as patient became agitated again. In the morning patient was quite sleepy but in afternoon when I checked her again then patient was waking up and more oriented. and grandson at bedside. Review of the lab, elevated glucose level, still BNP more than 5000 with normal creatinine level. A strict I&O's not done as family refusing for Lynch catheter with the fear that will make her more agitated and patient is incontinent. No fever, vomiting, diarrhea, abdominal pain, cough, chest pain. - Exam Vitals: Temp Pulse Resp BP Pulse Ox 98.2 F 85 16 133/75 99 05/09/18 11:43 05/09/18 11:43 05/09/18 11:43 05/09/18 11:43 05/09/18 11:43 Exam: General appearance: Patient lying comfortably on bed with closed eyes and opens on addressing verbally. Does not want to talk much. Grandson and at bedside Head exam: Present: atraumatic, normocephalic - Dry oral mucosa-as per family it has been chronically dry - Neck-supple - Respiratory-slight dullness sounds bibasilar-better - Cardiovascular-regular rate and rhythm with no murmur appreciated. - GI/Abdominal-soft nontender positive bowel sounds. - Extremities Exam-left foot with dressing and resting on foot rest. +1 Bilateral lower extremity pitting edema - Neurological -sleepy but awakened on addressing verbally. No focal neurological deficit motor 5 x 5 in all 4 extremities. Skin exam: Present: dry, intact - Assessment and Plan (1) Acute metabolic encephalopathy Current Visit: Yes Status: Acute Assessment and Plan: Multifactorial delirium, sundowning, underlying infection osteomyelitis but improving, UTI but no obvious bacterial infection, worsening of underlying dementia. Evaluated by psychiatrists who advised Haldol when necessary. Patient refused taking oral therefore IV 2.5 mg IV Haldol has been given that make her very sleepy. Family wants to put her on some scheduled medication. Therefore I reconsulted psychiatrist for their opinion that will help in making discharge plan. No focal neurological deficit. Continue to monitor patient needs PTOT. rack production worker on board to make discharge plan. Palliative care team was consulted and advised TSH free T4 and vitamin B12 to rule out any organic causes for her encephalopathy. Ordered the test and awaited for the result. Continue to monitor the patient. Head CT nonacute. Brain MRI with evidence of prior infarct otherwise nonacute. (2) Cardiomyopathy Current Visit: Yes Status: Chronic Assessment and Plan: Severe. Consulted cardiology who advise Lasix 40 mg IV twice a day with a strict I&O's. per hx. 04/16/2018 EF 20-25% and severe left diastolic dysfunction (previous EF 40%). Was evaluated by Cardiology during 04/15/2018 hospitalization and medical management was recommended time. Will need repeat TTE in 3 months to re- evaluate EF; if remains less than 35% then ICD evaluation will be considered per most recent cardiology evaluation. At present changed oral to IV medicine metoprolol 5 mg every 6 hour with hold parameter until she started to take her regular diet. BNP more than 5000 chest x-ray with mild bilateral pleural effusion. Patient is high risk to get volume overloaded and also can get dehydrated on diuresis therefore needs to monitor closely for the volume status. Continue strict I&O's and make further decision for diuresis as needed. Repeat chest x-ray with left base atelectasis with probable small bilateral effusions but no dense consolidation. Spirometry if patient cooperative (3) Foot osteomyelitis, left Current Visit: Yes Status: Acute Assessment and Plan: s/p graft placement on left forward today 05/06 patient had. emergent partial left foot amputation on 03/25/2018 for severe and extensive gas gangrene infection per Dr. Ayers. S/p surgical revision on 03/29/18 and wound graft 04/18/2018. Follows with ID, Podiatry and Wound care outpatient. Consulted ID specialist who discontinued Rocephin and started on Ancef 2 g IV every 8 hours. Podiatry managing dressing changes. (4) A-fib Current Visit: No Status: Chronic Assessment and Plan: per hx. Rate controlled. Cont home coumadin, BB. Therapeutic INR. (5) Abnormal urinalysis Current Visit: Yes Status: Acute Assessment and Plan: UA concerning for UTI. Urine culture with yeast. Started Diflucan 100 mg IV daily . (6) Rheumatoid factor positive Current Visit: Yes Status: Acute Assessment and Plan: History of Sjogren's syndrome in the family her daughter has it. Patient also has history of chronic dry oral mucosa but never brought attention to medical provider in the past. Elevated ESR CRP and rheumatoid factor but ALLYN negative- needs to follow PCP on OPD basis for further evaluation. (7) CVA (cerebral vascular accident) Current Visit: Yes Status: Acute Assessment and Plan: Remote, based on brain MRI with evidence of prior infarct otherwise nonacute. Patient is not aware of having CVA in the past. Neurologically intact, no deficits apparent. Continue low dose ASA (8) Goals of care, counseling/discussion Current Visit: Yes Status: Acute Assessment and Plan: Patient has fluctuancy in her mental status, most likely due to psychosis versus sundowning as patient get agitated in the night and do better later in the day consistently. Patient refuses oral medication and IV Haldol 2.5 mg put her on sleep therefore reconsulted psychiatrist for further recommendation home medication as she needs to be on a scheduled medication consistently and that is what family also wanted. Now family informed us that they will not to take patient directly to 10 is after getting discharged from this hospital. Will talk to animal nutrition consultant's, infectious diseases specialist, family welfare social work professor about this possibility. Family thinks that retirement where she was residing does not have optimal care and has fear that her condition will get worse. Palliative care team is on board. Family is refusing for physiotherapy as they want patient should come back to her normal mental status and does not want to push her for physiotherapy even explained the risk of deconditioning of body and lungs. Possible discharge tomorrow after obtaining further recommendation from psychiatry and making above arrangement for the discharge if possible. (9) DVT prophylaxis Current Visit: Yes Status: Acute Assessment and Plan: SCDs. Patient on warfarin with therapeutic INR. - Time Spent with Patient Total time spent is greater than 50% in coordination of care (as documented) at patient's floor/unit and/or counseling patient: Greater than 35 minutes (He spent more than 40 minute inpatient care mainly communication with family, nursing staff, automation consultant, window caser.) Internal Medicine: Result - Labs CBC & Chem 7: 05/09/18 07:44 05/09/18 07:44 Labs: Short CBC 05/09/18 Range/Units 07:44 WBC 11.2 H (4.3-11.1) K/mcL Hgb 9.8 L (11.5-15.4) g/dL Hct 32.0 L (35.3-44.9) % Plt Count 325 (140-400) K/mcL BMP 05/09/18 07:44 Sodium 141 Potassium 4.2 Chloride 103 Carbon Dioxide 30 H BUN 47 H Creatinine 0.99 Glucose 326 H Calcium 8.7 - ABG Interpretation ABG results: PT/INR, D-dimer PT 33.0 Seconds (9.4-12.1) H 05/09/18 07:44 Consult Discharge Plan - Plan Additional Instructions: Patient admitted to the hospital. Return to the ER for any new altered mental status, fevers, chills, discolored urine, pain, or any new symptoms that may arise. Follow up in wound care with Dr. Ayers. Make appointment prior to D/C in 1 week. Referrals: Cuate Montano MD [Non-Partnered Physician] - Agus Ayers DPM [Partnered Physician] - Martín Odonnell MD [Primary Care Provider] - (2) Cardiomyopathy Qualifiers: Cardiomyopathy type: unspecified Qualified Code(s): I42.9 - Cardiomyopathy, unspecified (3) Foot osteomyelitis, left Qualifiers: Osteomyelitis type: chronic multifocal Qualified Code(s): M86.372 - Chronic multifocal osteomyelitis, left ankle and foot (4) A-fib Qualifiers: Atrial fibrillation type: persistent Qualified Code(s): I48.1 - Persistent atrial fibrillation
--- NOTE | 2018-05-09 15:00 | Palliative Progress Note ---
<Ambrose Nieves - Last Filed: 05/09/18 16:37> Date of Encounter: 05/09/18 Time of Encounter: 11:00 - Assessment and plan (1) Goals of care, counseling/discussion Current Visit: Yes Status: Acute Assessment and plan: We had goals of care discussion with her yesterday. Patient has a living will, her and elder son Donell is the power of sports attorney, and they would like to pursue adequate medical management for patient's condition as long as those management modalities have a fruitful outcome. She is agreeable to treatment, CPR or intubation if need be and if chances of reviving are high. Since patient does very poorly with change of place, there is a concern that if she goes back to the ECF, it is going to contribute to her mental agitation. In that regard, a psychiatrist's opinion would be very helpful in making a decision about her discharge plan. (2) Altered mental status Current Visit: Yes Status: Acute Assessment and plan: -likely multifactorial due to delirium /sundowning/UTI. Patient was doing well until yesterday afternoon however later during the day, she got confused and wa s given IV Haldol 2.5 mg at night because patient was refusing to take PO medication. Another dose of IV 2.5 mg Haldol was given this AM. Early during her admission, patient's had her head CT, which was negative for any intracranial abnormalities. -Her TSH, free T4, B12 workup is pending to rule out rule in/out any organic cause for her encephalopathy. Psychiatrist has been consulted by the primary team to get their opinion . We recommend a stable dose of antipsychotic to help with her agitation. - Continue to monitor Qualifiers: Altered mental status type: delirium Qualified Code(s): R41.0 - Disorientation, unspecified (3) Candiduria Current Visit: Yes Status: Acute Assessment and plan: -Patient's urine culture was positive for yeast species -On physical exam, patient denied any supra pubic pain - currently on Diflucan 100mg . Continue to monitor. 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 Ayers. - currently on Rocephin 2000mg , continue to monitor Qualifiers: Qualified Code(s): M86.9 - Osteomyelitis, unspecified - Time Spent With Patient Total time spent is greater than 50% in coordination of care (as documented) at patient's floor/unit and/or counseling patient: - Subjective Interval history: Dr Rollins and I saw Ms. Kaplan at the bedside. We were told that she continued to be agitated overnight and was given haldol multiple times to subside her agitation. Her is against her being a part of any physical rehabi litation therapy and feels that it agitates her even further. He believes that we should help her only with her altered mental status and worry about her foot later once she is mentally A&O *3. We tried to explained to the that being bedbound his going to deteriorate her condition even further. Patient denies any abdominal discomfort, chest pain, no evidence of vomiting /diarrhea. - Constitutional Vitals: Abnormal lab results WBC 11.2 K/mcL (4.3-11.1) H 05/09/18 07:44 RBC 3.58 M/mcL (3.82-4.97) L 05/09/18 07:44 Hgb 9.8 g/dL (11.5-15.4) L 05/09/18 07:44 Hct 32.0 % (35.3-44.9) L 05/09/18 07:44 MCH 27.4 pg (28.0-33.3) L 05/09/18 07:44 MCHC 30.6 g/dL (31.6-35.5) L 05/09/18 07:44 RDW 17.3 % (11.5-14.5) H 05/09/18 07:44 MPV 12.5 fL (9.4-12.4) H 05/09/18 07:44 ESR 56 mm/hr (0-15) H 05/04/18 14:04 PT 33.0 Seconds (9.4-12.1) H 05/09/18 07:44 Carbon Dioxide 30 mEq/L (23-29) H 05/09/18 07:44 BUN 47 mg/dL (8-23) H 05/09/18 07:44 Est GFR (Non-Af Amer) 54 (> 60) L 05/09/18 07:44 BUN/Creatinine Ratio 47 (6-26) H 05/09/18 07:44 Glucose 326 mg/dL (70-105) H 05/09/18 07:44 POC Glucose 209 mg/dL (70-99) H 05/08/18 07:59 Calculated Osmolality 317 (280-300) H 05/09/18 07:44 C-Reactive Protein 34 mg/L (Less than 10) H 05/04/18 14:04 B-Natriuretic Peptide > 5000 pg/mL (Less than 100) H 05/09/18 07:44 Albumin 2.8 g/dL (3.5-5.7) L 05/05/18 04:00 Globulin 3.9 g/dL (2.4-3.5) H 05/05/18 04:00 Albumin/Globulin Ratio 0.7 (1.1-2.2) L 05/05/18 04:00 Urine Color [place] (Yellow) A 05/05/18 12:34 Urine Clarity Turbid (Clear) A 05/05/18 12:34 Urine Protein 100 mg/dL (Neg-Trace) H 05/04/18 11:45 Urine Ketones 15 mg/dL (Negative) H 05/04/18 11:45 Urine Blood Large (Negative) H 05/04/18 11:45 Ur Leukocyte Esterase Large (Negative) H 05/04/18 11:45 Urine Microscopic WBC TNTC per hpf (0-3) H 05/05/18 12:34 Ur Squamous Epith Cells Many per lpf (None-Few) H 05/05/18 12:34 Urine Bacteria Many per hpf (None-Few) H 05/05/18 12:34 Urine Yeast Many per hpf (None Seen) H 05/05/18 12:34 Rheumatoid Factor 26 IU/mL (Less than 14) H 05/06/18 18:00 General appearance: Present: mild distress (intermittently agitated) - Respiratory Respiratory exam: Present: CTAB Additional comments: No wheezing, rhonchi or rales - Cardiovascular Cardiovascular exam: Present: +S1, +S2 Additional comments: Afib rate controlled - GI/Abdominal GI/Abdominal exam: Present: soft (non-tender) Additional comments: non-tender, non-distended, no organomegaly - Psychiatric Psychiatric exam: Present: agitated, anxious Palliative Quality Palliative Quality: Screen for Code Status: Yes, Screen for Goals of Care: Yes, Screen for Pain: Yes, If Pain Regimen Started, Initiate Bowel Regimen: NA, Screen for Nausea/Vomitting: Yes Code Status: 05/04/18 13:29 Resuscitation Status: Active [RES] Routine Comment: Resuscitation Status: Full Code - Labs CBC & Chem 7: 05/09/18 07:44 05/09/18 07:44 Labs: Laboratory Results - last 24 hr 05/06/18 05/09/18 05/09/18 18:00 07:44 07:44 WBC 11.2 H RBC 3.58 L Hgb 9.8 L Hct 32.0 L MCV 89.4 MCH 27.4 L MCHC 30.6 L RDW 17.3 H Plt Count 325 MPV 12.5 H PT INR Sodium 141 Potassium 4.2 Chloride 103 Carbon Dioxide 30 H BUN 47 H Creatinine 0.99 Est GFR ( Amer) > 60 Est GFR (Non-Af Amer) 54 L BUN/Creatinine Ratio 47 H Glucose 326 H Calculated Osmolality 317 H Calcium 8.7 B-Natriuretic Peptide ALLYN Screen NONE DETECTED 05/09/18 05/09/18 07:44 07:44 WBC RBC Hgb Hct MCV MCH MCHC RDW Plt Count MPV PT 33.0 H INR 2.9 Sodium Potassium Chloride Carbon Dioxide BUN Creatinine Est GFR ( Amer) Est GFR (Non-Af Amer) BUN/Creatinine Ratio Glucose Calculated Osmolality Calcium B-Natriuretic Peptide > 5000 H ALLYN Screen - ABG Interpretation ABG results: PT/INR, D-dimer PT 33.0 Seconds (9.4-12.1) H 05/09/18 07:44 Consult Discharge Plan - Plan Additional Instructions: Patient admitted to the hospital. Return to the ER for any new altered mental status, fevers, chills, discolored urine, pain, or any new symptoms that may arise. Follow up in wound care with Dr. Ayers. Make appointment prior to D/C in 1 week. Referrals: Cuate Montano MD [Non-Partnered Physician] - Agus Ayers DPM [Partnered Physician] - Martín Odonnell MD [Primary Care Provider] - Carissa Bourne - Last Filed: 05/09/18 21:42> Date of Encounter: 05/09/18 - Time Spent With Patient Total time spent is greater than 50% in coordination of care (as documented) at patient's floor/unit and/or counseling patient: - Constitutional Vitals: Abnormal lab results WBC 11.2 K/mcL (4.3-11.1) H 05/09/18 07:44 RBC 3.58 M/mcL (3.82-4.97) L 05/09/18 07:44 Hgb 9.8 g/dL (11.5-15.4) L 05/09/18 07:44 Hct 32.0 % (35.3-44.9) L 05/09/18 07:44 MCH 27.4 pg (28.0-33.3) L 05/09/18 07:44 MCHC 30.6 g/dL (31.6-35.5) L 05/09/18 07:44 RDW 17.3 % (11.5-14.5) H 05/09/18 07:44 MPV 12.5 fL (9.4-12.4) H 05/09/18 07:44 ESR 56 mm/hr (0-15) H 05/04/18 14:04 PT 33.0 Seconds (9.4-12.1) H 05/09/18 07:44 Carbon Dioxide 30 mEq/L (23-29) H 05/09/18 07:44 BUN 47 mg/dL (8-23) H 05/09/18 07:44 Est GFR (Non-Af Amer) 54 (> 60) L 05/09/18 07:44 BUN/Creatinine Ratio 47 (6-26) H 05/09/18 07:44 Glucose 326 mg/dL (70-105) H 05/09/18 07:44 POC Glucose 306 mg/dL (70-99) H 05/08/18 20:20 Calculated Osmolality 317 (280-300) H 05/09/18 07:44 C-Reactive Protein 34 mg/L (Less than 10) H 05/04/18 14:04 B-Natriuretic Peptide > 5000 pg/mL (Less than 100) H 05/09/18 07:44 Albumin 2.8 g/dL (3.5-5.7) L 05/05/18 04:00 Globulin 3.9 g/dL (2.4-3.5) H 05/05/18 04:00 Albumin/Globulin Ratio 0.7 (1.1-2.2) L 05/05/18 04:00 Folate > 22.3 ng/mL (3.0-16.0) H 05/09/18 15:25 Urine Color [place] (Yellow) A 05/05/18 12:34 Urine Clarity Turbid (Clear) A 05/05/18 12:34 Urine Protein 100 mg/dL (Neg-Trace) H 05/04/18 11:45 Urine Ketones 15 mg/dL (Negative) H 05/04/18 11:45 Urine Blood Large (Negative) H 05/04/18 11:45 Ur Leukocyte Esterase Large (Negative) H 05/04/18 11:45 Urine Microscopic WBC TNTC per hpf (0-3) H 05/05/18 12:34 Ur Squamous Epith Cells Many per lpf (None-Few) H 05/05/18 12:34 Urine Bacteria Many per hpf (None-Few) H 05/05/18 12:34 Urine Yeast Many per hpf (None Seen) H 05/05/18 12:34 Rheumatoid Factor 26 IU/mL (Less than 14) H 05/06/18 18:00 - Attending Attestation I was present with resident during the history and exam. I discussed the case with the resident and agree with the findings and plan as documented in the residents note except as follow. Altered mental status: - dementia work up ordered. - Pt has needed several doses of Iv Haldol and PO Haldol. will start Haldol 2.5 mg TID . GOC: today was overwhelmed by pt's clinical condition, and was unable to participate in any further GOC discussion. He would like pt to return to NH once her delirium is better ontrolled. However, pt is likely to worsen as she returns due to unfamiliar faces. Will continue to monitor Palliative Quality Code Status: 05/04/18 13:29 Resuscitation Status: Active [RES] Routine Comment: Resuscitation Status: Full Code - Labs CBC & Chem 7: 05/09/18 07:44 05/09/18 07:44 Labs: Laboratory Results - last 24 hr 1105/08/18 05/08/18 18:00 11:19 16:32 WBC RBC Hgb Hct MCV MCH MCHC RDW Plt Count MPV PT INR Sodium Potassium Chloride Carbon Dioxide BUN Creatinine Est GFR ( Amer) Est GFR (Non-Af Amer) BUN/Creatinine Ratio Glucose POC Glucose 207 H 269 H Calculated Osmolality Calcium B-Natriuretic Peptide Vitamin B12 Folate TSH Free T4 ALLYN Screen NONE DETECTED 05/08/18 05/09/18 05/09/18 20:20 07:44 07:44 WBC 11.2 H RBC 3.58 L Hgb 9.8 L Hct 32.0 L MCV 89.4 MCH 27.4 L MCHC 30.6 L RDW 17.3 H Plt Count 325 MPV 12.5 H PT INR Sodium 141 Potassium 4.2 Chloride 103 Carbon Dioxide 30 H BUN 47 H Creatinine 0.99 Est GFR ( Amer) > 60 Est GFR (Non-Af Amer) 54 L BUN/Creatinine Ratio 47 H Glucose 326 H POC Glucose 306 H Calculated Osmolality 317 H Calcium 8.7 B-Natriuretic Peptide Vitamin B12 Folate TSH Free T4 ALLYN Screen 05/09/18 05/09/18 05/09/18 07:44 07:44 15:25 WBC RBC Hgb Hct MCV MCH MCHC RDW Plt Count MPV PT 33.0 H INR 2.9 Sodium Potassium Chloride Carbon Dioxide BUN Creatinine Est GFR ( Amer) Est GFR (Non-Af Amer) BUN/Creatinine Ratio Glucose POC Glucose Calculated Osmolality Calcium B-Natriuretic Peptide > 5000 H Vitamin B12 1071 Folate TSH Free T4 ALLYN Screen 05/09/18 05/09/18 15:25 15:25 WBC RBC Hgb Hct MCV MCH MCHC RDW Plt Count MPV PT INR Sodium Potassium Chloride Carbon Dioxide BUN Creatinine Est GFR ( Amer) Est GFR (Non-Af Amer) BUN/Creatinine Ratio Glucose POC Glucose Calculated Osmolality Calcium B-Natriuretic Peptide Vitamin B12 Folate > 22.3 H TSH 3.941 Free T4 1.35 ALLYN Screen - ABG Interpretation ABG results: PT/INR, D-dimer PT 33.0 Seconds (9.4-12.1) H 05/09/18 07:44
[2018-05-09] MEDS: Insulin NPH/REG 70/30 100 UNIT/ML (x5UNIT) SQ SCH ×2 (15:51→21:31)
[2018-05-09 16:44] LABS: Thyroid Stimulating Hormone 3.941 mcIU/mL (0.340-5.600)
--- NOTE | 2018-05-09 17:52 | Podiatry Progress Note ---
Date of Encounter: 05/09/18 Time of Encounter: 17:00 - Assessment and Plan (1) Chronic ulcer of left foot with fat layer exposed Current Visit: Yes Status: Acute Assessment: Patient alert. Chronic ulceration s/p chopart's amputation Graft in place to proximal wound bed. Red, beefy tissue noted with slough throughout wound bed. Sutures noted to medial aspect of LLE. Removed old dressing with moderate amount of serosanginous drainage. 05/04 ESR 56, CRP 34 Plan: Cleansed with 0.9 NS. Applied maxorb to graft site and wound bed. Covered with 4x4 dry gauze, kerlex, and coban. ATB managed per ID. Can D/C to ECF. Please have patient follow up with Dr. Ayers in wound care in 1 week. Have nursing staff change dressing daily: cleanse with 0.9 NS, apply alginate (maxorb) to wound bed, do not remove graft, cover with 4x4 dry gauze, kerlex, and apply LIA bandage to stump. (2) Type 2 diabetes mellitus with foot ulcer Current Visit: Yes Status: Acute Assessment: Blood glucose levels 300s Plan: Primary managing. Recommend tight glycemic control to promote wound healing. Qualifiers: Diabetes mellitus intermediate insulin use: with intermediate use Qualified Code(s): E11.621 - Type 2 diabetes mellitus with foot ulcer; L97.509 - Non- pressure chronic ulcer of other part of unspecified foot with unspecified severity; Z79.4 - long term care social worker (current) use of insulin Subjective Interval history: Patient was admitted 05/04 for UTI, AMS. 05/06 patient was taken to OR for graft placement. Today patient is in bed alert. at bedside. States is leaving tomorrow to return to the [employer]. Objective - Vital Signs Vital Signs: Vital Signs Temp Pulse Resp BP Pulse Ox 05/09/18 16:29 98.8 F 69 17 127/70 99 05/09/18 11:43 98.2 F 85 16 133/75 99 05/09/18 07:13 98.2 F 85 16 139/73 93 05/08/18 23:32 98.1 F 82 16 151/83 99 05/08/18 18:33 97.8 F 71 16 145/82 100 Intake and Output 05/09/18 05/09/18 05/09/18 07:59 15:59 23:59 Intake Total 70 / 70 150 / 150 Output Total 600 / 600 Balance 70 / 70 -450 / -450 Intake: IV Fluids 70 / 70 150 / 150 Diflucan 100 MG/50 ML 100 mg In 50 / 50 50 / 50 50 ml @ 50 mls/hr IVPB DAILY [facility] Rx#:[id number] Ancef 2,000 MG In 0.9 % Sodium 100 / 100 Chloride 100 ML @ 200 mls/hr IVPB Q8H [facility] Rx#:[id number] Output: Urine 600 / 600 Other: Meal Lunch Percent of Meal Consumed 0% Stool Size Large Stool Consistency formed Stool Color Brown # Voids 1 1 # Urine Diapers 1 1 Blood Glucose* 250 355 291 - Lab Result Diagrams: 05/09/18 07:44 05/09/18 07:44 Labs: Abnormal lab results WBC 11.2 K/mcL (4.3-11.1) H 05/09/18 07:44 RBC 3.58 M/mcL (3.82-4.97) L 05/09/18 07:44 Hgb 9.8 g/dL (11.5-15.4) L 05/09/18 07:44 Hct 32.0 % (35.3-44.9) L 05/09/18 07:44 MCH 27.4 pg (28.0-33.3) L 05/09/18 07:44 MCHC 30.6 g/dL (31.6-35.5) L 05/09/18 07:44 RDW 17.3 % (11.5-14.5) H 05/09/18 07:44 MPV 12.5 fL (9.4-12.4) H 05/09/18 07:44 ESR 56 mm/hr (0-15) H 05/04/18 14:04 PT 33.0 Seconds (9.4-12.1) H 05/09/18 07:44 Carbon Dioxide 30 mEq/L (23-29) H 05/09/18 07:44 BUN 47 mg/dL (8-23) H 05/09/18 07:44 Est GFR (Non-Af Amer) 54 (> 60) L 05/09/18 07:44 BUN/Creatinine Ratio 47 (6-26) H 05/09/18 07:44 Glucose 326 mg/dL (70-105) H 05/09/18 07:44 POC Glucose 209 mg/dL (70-99) H 05/08/18 07:59 Calculated Osmolality 317 (280-300) H 05/09/18 07:44 C-Reactive Protein 34 mg/L (Less than 10) H 05/04/18 14:04 B-Natriuretic Peptide > 5000 pg/mL (Less than 100) H 05/09/18 07:44 Albumin 2.8 g/dL (3.5-5.7) L 05/05/18 04:00 Globulin 3.9 g/dL (2.4-3.5) H 05/05/18 04:00 Albumin/Globulin Ratio 0.7 (1.1-2.2) L 05/05/18 04:00 Folate > 22.3 ng/mL (3.0-16.0) H 05/09/18 15:25 Urine Color [place] (Yellow) A 05/05/18 12:34 Urine Clarity Turbid (Clear) A 05/05/18 12:34 Urine Protein 100 mg/dL (Neg-Trace) H 05/04/18 11:45 Urine Ketones 15 mg/dL (Negative) H 05/04/18 11:45 Urine Blood Large (Negative) H 05/04/18 11:45 Ur Leukocyte Esterase Large (Negative) H 05/04/18 11:45 Urine Microscopic WBC TNTC per hpf (0-3) H 05/05/18 12:34 Ur Squamous Epith Cells Many per lpf (None-Few) H 05/05/18 12:34 Urine Bacteria Many per hpf (None-Few) H 05/05/18 12:34 Urine Yeast Many per hpf (None Seen) H 05/05/18 12:34 Rheumatoid Factor 26 IU/mL (Less than 14) H 05/06/18 18:00 Microbiology, Last 48 Hours 05/04/18 11:19 Blood Culture - Final Peripheral Venipuncture No growth. Final report. 05/04/18 11:40 Blood Culture - Final Peripheral Venipuncture No growth. Final report. Consult Discharge Plan - Plan Additional Instructions: Patient admitted to the hospital. Return to the ER for any new altered mental status, fevers, chills, discolored urine, pain, or any new symptoms that may arise. Follow up in wound care with Dr. Ayers. Make appointment prior to D/C in 1 week. Referrals: Cuate Montano MD [Non-Partnered Physician] - Agus Ayers DPM [Partnered Physician] - Martín Odonnell MD [Primary Care Provider] -
[2018-05-09] MEDS ORDERED: *HR* Warfarin 1 MG TABLET PO ONE (18:00)
[2018-05-09] MEDS ORDERED: Dorzolamide/Timolol OPTH 10 ML BOTTLE RIGHT EYE SCH (21:00)
[2018-05-10] MEDS: Nystatin POWDER 30 GM BOTTLE TP SCH (00:40)
[2018-05-10] MEDS: *HR* Metoprolol 5 MG/5 ML VIAL IVP SCH ×2 (00:41→06:12)
[2018-05-10] MEDS: *HR* Dextrose 50 % in Water (Syg) 50 ML SYRINGE IVP PRN ×2 (01:49→03:29)
[2018-05-10 05:16] LABS: INR 2.5; Prothrombin Time 28.1 Seconds (9.4-12.1)
[2018-05-10 05:21] LABS: Mean Corpuscular HGB Conc 32.1 g/dL (31.6-35.5); Mean Corpuscular Hemoglobin 27.9 pg (28.0-33.3); Mean Corpuscular Volume 86.7 fL (83.0-100.0); Mean Platelet Volume 12.3 fL (9.4-12.4); Platelet Count 330 K/mcL (140-400); Red Blood Count 3.23 M/mcL (3.82-4.97); Red Cell Distribution Width 17.4 % (11.5-14.5)
[2018-05-10 05:28] LABS: BUN/Creatinine Ratio 54 (6-26); Blood Urea Nitrogen 42 mg/dL (8-23); Calcium 8.3 mg/dL (8.6-10.3); Carbon Dioxide 35 mEq/L (23-29); Chloride 103 mEq/L (98-107); Glucose 95 mg/dL (70-105); Osmolality,Calculated 304 (280-300); Potassium 2.9 mEq/L (3.5-5.1); Sodium 142 mEq/L (136-145); eGFR For Non-African Americans > 60 (> 60)
[2018-05-10] MEDS ORDERED: Potassium Chloride 40 MEQ, Lidocaine 1% 2 ML in D5% in Water 500 ML IVPB ONE (07:33)
[2018-05-10 08:21] LABS: Magnesium 1.6 mg/dL (1.6-2.6)
[2018-05-10] MEDS ORDERED: Potassium Chloride Elixir 20 MEQ/15 ML UDC PO ONE (08:50)
[2018-05-10] MEDS ORDERED: Insulin NPH/REG 70/30 100 UNIT/ML (x5UNIT) SQ SCH (09:00)
[2018-05-10] MEDS: Furosemide 40 MG/4 ML VIAL IVP SCH (09:47)
[2018-05-10] MEDS: Sucralfate 1 GM TABLET PO SCH (09:47)
[2018-05-10] MEDS: Aspirin 81 MG TAB.CHEW PO SCH (09:48)
[2018-05-10] MEDS: Metoprolol XL (24 HR) Succ 50 MG TAB.ER.24H PO SCH (09:48)
[2018-05-10] MEDS: Insulin LISPRO 300 UNITS/3 ML VIAL SQ SCH (10:05)
--- NOTE | 2018-05-10 11:39 | Event Note ---
Date of Encounter: 05/10/18 Time of Encounter: 11:33 Ms guzman this morning was in company of her and grandson. She was AAO x4, communicating pleasantly. She denies any pain or discomfort. Patient and family are looking forward to discharge today back to rehab, with a future plan of moving to [place]. Patient stable for discharge per primary team, recommend to continue Haldol 2.5 mg PO TID. Thank you for allowing us to participate in the care of this patient, Palliative care will sign off.
--- NOTE | 2018-05-10 12:05 | Consult Note ---
Date of Encounter: 05/10/18 Time of Encounter: 10:30 Assessment & Recommendation (1) Delirium due to another medical condition Current visit: Yes Status: Acute (2) CVA (cerebral vascular accident) Current visit: Yes Status: Chronic Qualifiers: CVA mechanism: other Qualified Code(s): I63.89 - Other cerebral infarction History of Present Illness Patient: known to practice within the last 3 years Requesting Physician: Lan Corona Reason for consult: follow-up of psychosis History of present illness: Ms. Kaplan is a 78 year old female The patient is an 78-year-old white female. The patient was interviewed with her and other family member in the room. The patient has improved on haloperidol 2.5 mg by mouth 3 times a day. The reports that she has been doing much better with the scheduled dose of medication. The patient has a previous diagnosis of delirium due to another medical condition. The patient was seen on 05/05/2018 by our service. Currently, the patient is tolerating the medicine without side effects. The family reports improvement and the patient is scheduled to be discharged to [facility]. CC: Lan Corona Past Med Surg Social Fam HX - Past Medical History Medical history: diabetes, renal disease, hypertension, coronary artery disease - Past Psychiatric History Psychiatric history: Reports: no psych history Family psychiatric history: Unknown Family History of Suicide: Unknown - Past Surgical History Surgical History: coronary bypass (CABG), orthopedic, other, splenectomy, appendectomy - Social History Smoking Status: Never smoker Smokeless Tobacco Status: No Alcohol use: none Drug use: none Occupational status: disabled Current living situation: [facility] Activity Level: Other Recent Out of Country Travel Within the Last 8 Weeks: No Exposure or Possible Exposure to Illness During Travel: No - Family History Mother Living Status: Hx Family Cardiac Disorders: No Hx Family Respiratory Disorders: No Hx Family Cancer: Yes (Uterine Cancer) Hx Family GI Disorders: No Hx Family Endocrine Disorder: No Hx Family Neuromuscular Disorders: No Hx Family Neurologic Disorders: No Hx Family HEENT Disorders: No Hx Family Autoimmune Disorders: No Father Adopted: No Living Status: Hx Family Cardiac Disorders: No Hx Family Respiratory Disorders: No Hx Family Cancer: Yes Hx Family Endocrine Disorder: No Hx Family Neuromuscular Disorders: No Hx Family Neurologic Disorders: No Hx Family HEENT Disorders: No Hx Family Autoimmune Disorders: No Medications & Allergies Simvastatin [Zocor] 40 mg PO HS 02/23/17 [History] Ergocalciferol (VITAMIN D2) [Vitamin D2] 50,000 unit PO QWEEK 03/25/18 [History] Acetaminophen [Tylenol] 650 mg PO Q4H PRN 04/15/18 [History] Cefazolin Sodium/D5w [Cefazolin 2 G/50 ml-D5w Bag] 1 vial IV DAILY 04/15/18 [History] Dorzolamide/Timolol/Pf [Dorzolamide-Timolol 2%-0.5%] 1 drop RIGHT EYE BID 04/15/18 [History] Insulin NPH Hum/Reg Insulin Hm [Humulin 70-30 Vial] 20 unit SQ BID 04/15/18 [History] Nitroglycerin [Nitrostat] 0.4 mg SL PRN PRN 04/15/18 [History] Warfarin perPT [Coumadin perPT] 2 mg PO DAILY 04/15/18 [History] Nystatin Cream [Mycostatin Cream] 1 appl TP TID #1 tube 04/19/18 [Rx] Collagenase Oint [Santyl] 30 gm TP DAILY 05/04/18 [History] Lisinopril 2.5 mg PO DAILY 05/04/18 [History] Melatonin [Melatin] 6 mg PO HS PRN 05/04/18 [History] Methyl Salicylate/Menthol [Muscle Rub Cream] 1 applic TP TID 05/04/18 [History] Metoprolol Succinate 50 mg PO DAILY 05/04/18 [History] Ondansetron HCl [Zofran] 4 mg PO Q4H PRN 05/04/18 [History] Oxycodone HCl 5 mg PO Q12H PRN 05/04/18 [History] Pantoprazole Sodium [Protonix] 40 mg PO DAILY 05/04/18 [History] Sucralfate [Carafate] 1 gm PO BID 05/04/18 [History] Allergy/AdvReac Type Severity Reaction Status Date / Time lidocaine Allergy See Verified 04/17/18 09:26 Comments Review of Systems Psychiatric: Reports: confusion, difficulty concentrating, mood swings Psychiatry Exam - Constitutional Vitals: Temp Pulse Resp BP Pulse Ox 98.1 F 72 16 132/77 100 05/10/18 06:43 05/10/18 06:43 05/10/18 06:43 05/10/18 06:43 05/10/18 06:43 General appearance: age & developmentally appropriate - Musculoskeletal Gait: slow Strength & Tone: mild weakness - Psychiatric Patient Orientation: Yes Person, Yes Time, Yes Place Level of alertness: Alert, Follows commands Behavior: cooperative Psychomotor activity: Slowed Eye Contact: Minimal Contact Mood Description: Euthymic/stable Affect description: congruent with mood Speech Volume: Normal Speech pattern: normal rate Language & Vocabulary: consistent with education Thought Process: Logical Attention Span Ability: Unable to Sustain Attention Memory Description: Immediate Impaired, Recent Impaired, Remote Intact Patient Reliability: Questionable Historian Intelligence Estimate: Average Judgment: Limited Insight: Minimal Results - Labs Labs: Laboratory Last Values WBC 9.2 K/mcL (4.3-11.1) 05/10/18 04:45 RBC 3.23 M/mcL (3.82-4.97) L 05/10/18 04:45 Hgb 9.0 g/dL (11.5-15.4) L 05/10/18 04:45 Hct 28.0 % (35.3-44.9) L 05/10/18 04:45 MCV 86.7 fL (83.0-100.0) 05/10/18 04:45 MCH 27.9 pg (28.0-33.3) L 05/10/18 04:45 MCHC 32.1 g/dL (31.6-35.5) 05/10/18 04:45 RDW 17.4 % (11.5-14.5) H 05/10/18 04:45 Plt Count 330 K/mcL (140-400) 05/10/18 04:45 MPV 12.3 fL (9.4-12.4) 05/10/18 04:45 Immature Gran % 0.6 % (0-4) 05/04/18 11:19 Seg Neutrophils % 77.9 % 05/04/18 11:19 Lymphocytes % 13.6 % 05/04/18 11:19 Monocytes % 6.5 % 05/04/18 11:19 Eosinophils % 0.6 % 05/04/18 11:19 Basophils % 0.8 % 05/04/18 11:19 Neutrophils # 6.8 K/mcL (1.6-8.9) 05/04/18 11:19 Lymphocytes # 1.2 K/mcL (0.6-4.6) 05/04/18 11:19 Monocytes # 0.6 K/mcL (0.0-1.3) 05/04/18 11:19 Eosinophils # 0.1 K/mcL (0.0-0.6) 05/04/18 11:19 Basophils # 0.1 K/mcL (0.0-0.2) 05/04/18 11:19 ESR 56 mm/hr (0-15) H 05/04/18 14:04 PT 28.1 Seconds (9.4-12.1) H 05/10/18 04:45 INR 2.5 05/10/18 04:45 Sodium 142 mEq/L (136-145) 05/10/18 04:45 Potassium 2.9 mEq/L (3.5-5.1) L D 05/10/18 04:45 Chloride 103 mEq/L (98-107) 05/10/18 04:45 Carbon Dioxide 35 mEq/L (23-29) H 05/10/18 04:45 BUN 42 mg/dL (8-23) H 05/10/18 04:45 Creatinine 0.78 mg/dL (0.60-1.20) 05/10/18 04:45 Est GFR ( Amer) > 60 (> 60) 05/10/18 04:45 Est GFR (Non-Af Amer) > 60 (> 60) 05/10/18 04:45 BUN/Creatinine Ratio 54 (6-26) H 05/10/18 04:45 Glucose 95 mg/dL (70-105) 05/10/18 04:45 POC Glucose 210 mg/dL (70-99) H 05/10/18 11:06 Calculated Osmolality 304 (280-300) H 05/10/18 04:45 Lactic Acid 1.9 mmol/L (0.5-2.2) 05/04/18 11:19 Calcium 8.3 mg/dL (8.6-10.3) L 05/10/18 04:45 Magnesium 1.6 mg/dL (1.6-2.6) 05/10/18 04:45 Total Bilirubin 1.0 mg/dL (0.3-1.0) 05/05/18 04:00 AST 23 Units/L (13-39) 05/05/18 04:00 ALT 11 Units/L (7-52) 05/05/18 04:00 Alkaline Phosphatase 80 Units/L (34-104) 05/05/18 04:00 Ammonia 43 mcmol/L (16-53) 05/04/18 14:04 C-Reactive Protein 34 mg/L (Less than 10) H 05/04/18 14:04 B-Natriuretic Peptide > 5000 pg/mL (Less than 100) H 05/10/18 04:45 Serum Total Protein 6.7 g/dL (6.4-8.9) 05/05/18 04:00 Albumin 2.8 g/dL (3.5-5.7) L 05/05/18 04:00 Globulin 3.9 g/dL (2.4-3.5) H 05/05/18 04:00 Albumin/Globulin Ratio 0.7 (1.1-2.2) L 05/05/18 04:00 Vitamin B12 1071 pg/mL (250-1100) 05/09/18 15:25 Folate > 22.3 ng/mL (3.0-16.0) H 05/09/18 15:25 TSH 3.941 mcIU/mL (0.340-5.600) 05/09/18 15:25 Free T4 1.35 ng/dl (0.70-2.00) 05/09/18 15:25 Urine Color Freeborn (Yellow) A 05/05/18 12:34 Urine Clarity Turbid (Clear) A 05/05/18 12:34 Urine pH 5.0 pH Units (5.0-8.0) 05/05/18 12:34 Ur Specific Gautier 1.016 (1.010-1.025) 05/05/18 12:34 Urine Protein 100 mg/dL (Neg-Trace) H 05/04/18 11:45 Urine Glucose (UA) TNP 05/05/18 12:34 Urine Ketones 15 mg/dL (Negative) H 05/04/18 11:45 Urine Blood Large (Negative) H 05/04/18 11:45 Urine Nitrite Negative (Negative) 05/04/18 11:45 Urine Bilirubin Negative (Negative) 05/04/18 11:45 Urine Urobilinogen Normal mg/dL (Normal) 05/04/18 11:45 Ur Leukocyte Esterase Large (Negative) H 05/04/18 11:45 Urine Microscopic RBC 0-3 per hpf (0-3) 05/05/18 12:34 Urine Microscopic WBC TNTC per hpf (0-3) H 05/05/18 12:34 Ur Squamous Epith Cells Many per lpf (None-Few) H 05/05/18 12:34 Urine Bacteria Many per hpf (None-Few) H 05/05/18 12:34 Hyaline Casts Test Not Performed 05/05/18 12:34 Urine Yeast Many per hpf (None Seen) H 05/05/18 12:34 Ur Culture Indicated? NO (NO) 05/05/18 12:34 Rheumatoid Factor 26 IU/mL (Less than 14) H 05/06/18 18:00 ALLYN Screen NONE DETECTED (None Detected) 05/06/18 18:00 Consult Discharge Plan - Plan Additional Instructions: Patient admitted to the hospital. Return to the ER for any new altered mental status, fevers, chills, discolored urine, pain, or any new symptoms that may arise. Follow up in wound care with Dr. Ayers. Make appointment prior to D/C in 1 week. Referrals: Cuate Montano MD [Non-Partnered Physician] - Kacie Nunn [Advanced Practice Nurse] - 05/23/18 1:30 pm Martín Odonnell MD [Primary Care Provider] -
[2018-05-10 12:23] LABS: BUN/Creatinine Ratio 44 (6-26); Blood Urea Nitrogen 35 mg/dL (8-23); Calcium 8.4 mg/dL (8.6-10.3); Carbon Dioxide 34 mEq/L (23-29); Chloride 99 mEq/L (98-107); Glucose 221 mg/dL (70-105); Osmolality,Calculated 305 (280-300); Potassium 3.5 mEq/L (3.5-5.1); Sodium 140 mEq/L (136-145); eGFR For Non-African Americans > 60 (> 60)
--- NOTE | 2018-05-10 13:33 | Discharge Summary ---
- NOTES TO OUTPATIENT PROVIDER Notes to Outpatient Provider: Follow with loading inspector as instructed in the chart- follow recommendation for dressing change. Follow-up with ID in 2 weeks. Follow-up with PCP-3-5 days. Follow with cardiology in 1-2 weeks Orders not resulted at time of discharge: Pending orders 05/11/18 04:00 INR/PT [Prothrombin Time INR] [COAG] AM 0400 05/12/18 04:00 INR/PT [Prothrombin Time INR] [COAG] AM 0400 Date of Encounter: 05/10/18 Time of Encounter: 13:28 - Discharge Diagnosis (1) Acute metabolic encephalopathy Priority: Primary Status: Acute Assessment and Plan: Multifactorial delirium, sundowning, history of CVA in imaging study /underlying infection osteomyelitis but improving, UTI but no obvious bacterial infection, worsening of underlying dementia. Evaluated by psychiatrists who advised Haldol when necessary earlier but eventually changed to 2.5 mg by mouth 3 times a day schedule and patient is started to improve. Patient is to follow-up PCP or psychiatrists on OPD basis for long-term plan. Having history of cerebrovascular disease can contribute major neurocognitive disorder, vascular dementia with delirium. No focal neurological deficit. Palliative care team was consulted and advised TSH free T4 and vitamin B12 to rule out any organic causes for her encephalopathy-normal test report. PTOT and social staff worker consulted and advised to transfer back to previous facility where she came from once a stabilize medically. Head CT nonacute. Brain MRI with evidence of prior infarct otherwise nonacute. (2) Cardiomyopathy Priority: Primary Status: Chronic Assessment and Plan: Severe. CHF exacerbation therefore cardiology consulted and IV diuretic was given and eventually change to oral Lasix. BNP has been persistently high therefore discussed discharge plan with cardiology who advised to discharge patient on Lasix 40 mg by mouth twice a day, potassium and chloride 20 mEq daily with follow-up in cardiology office. BMP monitoring as per PCP per hx. 04/16/2018 EF 20-25% and severe left diastolic dysfunction (previous EF 40%). Was evaluated by Cardiology during 04/15/2018 hospitalization and medical management was recommended time. Will need repeat TTE in 3 months to re- evaluate EF; if remains less than 35% then ICD evaluation will be considered per most recent cardiology evaluation. Continue home medication. Patient does not appear volume overloaded at the time of discharge, her pedal edema decreased and lung sounds clear. Qualifiers: Cardiomyopathy type: unspecified Qualified Code(s): I42.9 - Cardiomyopathy, unspecified (3) Foot osteomyelitis, left Priority: Primary Status: Acute Assessment and Plan: s/p graft placement on left forward today 05/06 patient had. emergent partial left foot amputation on 03/25/2018 for severe and extensive gas gangrene infection per Dr. Ayers. S/p surgical revision on 03/29/18 and wound graft 04/18/2018. Follows with ID, Podiatry and Wound .. I discussed discharge plan with ID specialist about antibiotic he is okay to discharge patient on Rocephin 2 g IV daily for total 6-8 weeks as [facility] problem providing Ancef IV every 8 hours based on frequency. Patient needs to follow with podiatry instruction as already given and also keep appointment with ID specialist in 2 weeks to determine daughter duration of therapy if in case change in course of disease . Qualifiers: Osteomyelitis type: chronic multifocal Qualified Code(s): M86.372 - Chronic multifocal osteomyelitis, left ankle and foot (4) A-fib Priority: Secondary Status: Chronic Assessment and Plan: per hx. Rate controlled. Cont home BB. Therapeutic INR. Will discharge patient on Coumadin 1 mg daily as recommended by pharmacy and further management as per facility physician. Qualifiers: Atrial fibrillation type: persistent Qualified Code(s): I48.1 - Persistent atrial fibrillation (5) Abnormal urinalysis Priority: Primary Status: Acute Assessment and Plan: Candiduria. UA concerning for UTI. Urine culture with yeast. Diflucan 100 mg by mouth daily for total 14 days. Patient already completed 4 days course in the hospital (6) Rheumatoid factor positive Priority: Secondary Status: Acute Assessment and Plan: History of Sjogren's syndrome in the family her daughter has it. Patient also has history of chronic dry oral mucosa but never brought attention to medical provider in the past. Slight Elevated ESR CRP and rheumatoid factor but ALLYN negative-needs to follow PCP on OPD basis for further evaluation of autoimmune disease. (7) CVA (cerebral vascular accident) Priority: Secondary Status: Chronic Assessment and Plan: Remote, incidental finding based on brain MRI with evidence of prior infarct otherwise nonacute. Patient is not aware of having CVA in the past. Neurologically intact, no deficits apparent. Continue low dose ASA Qualifiers: CVA mechanism: other Qualified Code(s): I63.89 - Other cerebral infarction (8) Goals of care, counseling/discussion Priority: Primary Status: Acute Assessment and Plan: Patient has fluctuancy in her mental status, most likely due to psychosis versus sundowning as patient get agitated in the night and do better later in the day consistently. Patient refuses oral medication and IV Haldol 2.5 mg put her on sleep therefore reconsulted psychiatrist for further recommendation home medication as she needs to be on a scheduled medication consistently and that is what family also wanted. Psychiatrist is started 2.5 mg Haldol by mouth 3 times a day and advise for tapering down on weekly basis assessment as per facility physician. Discussed discharge plan with loading inspector's, infectious diseases specialist, social staff worker as mentioned above .patient is being transferred back to same nursing facility with above-mentioned recommendation. Ultimate plan is to take patient to [place] where her daughter live [facility]. Palliative care team was consulted and appreciate their recommendation. Hospital course: Ms. Kaplan is a 78 year old female patient got admitted for altered mental status. Extensive workup was done and underlying cause was found delirium with psychosis. Please see details in diagnosis section of discharge summary. At the time of discharge patient is clinically and hemodynamically stable, tolerating oral diet, communicating well, is still not ambulating due to present foot condition. [facility]. Decreased dose of home dose NPH 10 units twice a day instead 20 units twice a day as patient has low blood glucose level on home dose. Discharge discussed with: patient, family, nurse, social work, case management, tour consultant - Time Spent with Patient Total time spent providing and/or coordinating discharge services: Greater than 30 minutes - Discharge Medications Prescriptions: Fluconazole [Diflucan] 100 mg PO DAILY #10 tablet Haloperidol [Haldol] 2.5 mg PO TID #15 tablet Home Medications: Simvastatin [Zocor] 40 mg PO HS 02/23/17 [History] Ergocalciferol (VITAMIN D2) [Vitamin D2] 50,000 unit PO QWEEK 03/25/18 [History] Acetaminophen [Tylenol] 650 mg PO Q4H PRN 04/15/18 [History] Dorzolamide/Timolol/Pf [Dorzolamide-Timolol 2%-0.5%] 1 drop RIGHT EYE BID 04/15/18 [History] Nitroglycerin [Nitrostat] 0.4 mg SL PRN PRN 04/15/18 [History] Nystatin Cream [Mycostatin Cream] 1 appl TP TID #1 tube 04/19/18 [Rx] Collagenase Oint [Santyl] 30 gm TP DAILY 05/04/18 [History] Lisinopril 2.5 mg PO DAILY 05/04/18 [History] Melatonin [Melatin] 6 mg PO HS PRN 05/04/18 [History] Methyl Salicylate/Menthol [Muscle Rub Cream] 1 applic TP TID 05/04/18 [History] Metoprolol Succinate 50 mg PO DAILY 05/04/18 [History] Ondansetron HCl [Zofran] 4 mg PO Q4H PRN 05/04/18 [History] Pantoprazole Sodium [Protonix] 40 mg PO DAILY 05/04/18 [History] Sucralfate [Carafate] 1 gm PO BID 05/04/18 [History] Aspirin 81 mg PO DAILY tab.chew 05/10/18 [Rx] Fluconazole [Diflucan] 100 mg PO DAILY #10 tablet 05/10/18 [Rx] Furosemide [Lasix] 40 mg PO BIDDIURETIC tablet 05/10/18 [Rx] Haloperidol [Haldol] 2.5 mg PO TID #15 tablet 05/10/18 [Rx] Insulin NPH/REG 70/30 (HUMAN) [Humulin 70/30 Vial] 10 unit SQ 0900,1700 [id number] 05/10/18 [Rx] OxyCODONE Immed Rel [Roxicodone 5 MG] 5 mg PO Q8H PRN #10 tablet 05/10/18 [Rx] Potassium Chloride 20 meq PO DAILY tab.er.prt 05/10/18 [Rx] Warfarin perPT [Coumadin perPT] 1 mg PO DAILY #0 05/10/18 [Rx] Allergies/Adverse Reactions: Allergy/AdvReac Type Severity Reaction Status Date / Time lidocaine Allergy See Verified 04/17/18 09:26 Comments Date of admission: 05/05/18 13:33 Primary care physician: Martín Odonnell MD Consults: 05/05/18 02:18 Consult to Podiatry [CONS] Routine Consulting Provider: Pod[facility] Reason for Consult: Recent partial foot amputation w/pt. receiving abx therapy at [facility] Call Completed: No 05/05/18 02:19 Consult to Physical Therapy [CONS] Routine Comment: Evaluate, develop and implement POC Reason for Consult: Recent partial foot amputation. Please assess patient for ambulation strength, stability, safety, and rehabilitation needs for post-discharge planning. Does patient have active BEDREST order?: No Is patient medically & hemodynamically stable?: Yes Patient assessed for mobility or mobilized this visit?: No 05/05/18 02:20 Consult to Horse Buyer [CONS] Routine Reason for SW Consult: Please assess patient for possible home needs for post-discharge planning. 05/05/18 02:21 Consult to Nutrition [CONS] Routine Comment: High protein Ensure w/meals Consulting Provider: NUTRITION Reason for Dietary Consult: PO Supplementation 05/05/18 09:20 Consult to Psychiatry [CONS] Routine Consulting Provider: Psychiatry [place] Reason consult: Confusion 05/06/18 11:32 Consult to Infectious Diseases [CONS] Routine Consulting Provider: Infectious Disease [facility] Reason for Consult: osteomylitis Call Completed: Yes 05/07/18 12:40 Consult to Palliative Care [CONS] Routine Comment: Consulting Provider: Palliative Care [place] Reason for Consult: Code discussion Call Completed: Yes 05/07/18 13:00 Consult to Cardiology [CONS] Routine Comment: Consulting Provider: Cardiology [facility] Reason for Consult: Severe cardiomyopathy with CHF Call Completed: Yes 05/08/18 09:57 OT [Consult to Occupational Therapy] [CONS] Routine Comment: Evaluate, develop and implement POC Reason for Consult: weakness Does patient have active BEDREST order?: No Is patient medically & hemodynamically stable?: Yes Patient assessed for mobility or mobilized this visit?: Yes 05/09/18 13:17 Consult to Psychiatry [CONS] Routine Consulting Provider: Psychiatry [place] Reason consult: Psychosis - Constitutional Vitals: Temp Pulse Resp BP Pulse Ox 98.1 F 72 16 132/77 100 05/10/18 06:43 05/10/18 06:43 05/10/18 06:43 05/10/18 06:43 05/10/18 06:43 General appearance: Present: A&O X 2, mild distress, A&O X 3, morbidly obese Exam: Head exam: Present: atraumatic, normocephalic - Dry oral mucosa-as per family it has been chronically dry - Neck-supple - Respiratory-slight dullness sounds bibasilar-better - Cardiovascular-regular rate and rhythm with no murmur appreciated. - GI/Abdominal-soft nontender positive bowel sounds. - Extremities Exam-left foot with dressing and resting on foot rest. trace Bilateral lower extremity pitting edema - Neurological -alert awake oriented 3. No focal neurological deficit. Skin exam: Present: dry, intact - Patient Status Disposition: Transfer Inpatient Rehab Fac Condition: Fair Overall status at discharge: patient is progressing back to baseline - Discharge Instructions Follow Up With: Cuate Montano MD [Non-Partnered Physician] - Kacie Nunn [Advanced Practice Nurse] - 05/23/18 1:30 pm Martín Odonnell MD [Primary Care Provider] - Additional Instructions: Patient admitted to the hospital. Return to the ER for any new altered mental status, fevers, chills, discolored urine, pain, or any new symptoms that may arise. Follow up in wound care with Dr. Ayers. Make appointment prior to D/C in 1 week. - Diet and Activity Activity: as per physical therapy Diet: advance to your usual diet
[2018-05-10] MEDS ORDERED: cefTRIAXone 2,000 MG in Water for inj. (sterile) 20 ML 20 ML IVP SCH (14:00)
--- NOTE | 2018-05-10 14:53 | Physician Discharge Referral ---
ExtendedCare Referral Info Transfer To: ECF Provider in Charge after Transfer: PCP (And also facility physician) Institutional Level of Care: Skilled - Diagnosis (1) Acute metabolic encephalopathy Priority: Primary Status: Acute (2) Cardiomyopathy Priority: Primary Status: Chronic (3) Foot osteomyelitis, left Priority: Primary Status: Acute (4) A-fib Priority: Secondary Status: Chronic (5) Abnormal urinalysis Priority: Primary Status: Acute (6) Rheumatoid factor positive Priority: Secondary Status: Acute (7) CVA (cerebral vascular accident) Priority: Secondary Status: Chronic (8) Goals of care, counseling/discussion Priority: Primary Status: Acute - Transfer Medications Prescriptions: Fluconazole [Diflucan] 100 mg PO DAILY #10 tablet Haloperidol [Haldol] 2.5 mg PO TID #15 tablet Home Medications: Simvastatin [Zocor] 40 mg PO HS 02/23/17 [History] Ergocalciferol (VITAMIN D2) [Vitamin D2] 50,000 unit PO QWEEK 03/25/18 [History] Acetaminophen [Tylenol] 650 mg PO Q4H PRN 04/15/18 [History] Dorzolamide/Timolol/Pf [Dorzolamide-Timolol 2%-0.5%] 1 drop RIGHT EYE BID 04/15/18 [History] Nitroglycerin [Nitrostat] 0.4 mg SL PRN PRN 04/15/18 [History] Nystatin Cream [Mycostatin Cream] 1 appl TP TID #1 tube 04/19/18 [Rx] Collagenase Oint [Santyl] 30 gm TP DAILY 05/04/18 [History] Lisinopril 2.5 mg PO DAILY 05/04/18 [History] Melatonin [Melatin] 6 mg PO HS PRN 05/04/18 [History] Methyl Salicylate/Menthol [Muscle Rub Cream] 1 applic TP TID 05/04/18 [History] Metoprolol Succinate 50 mg PO DAILY 05/04/18 [History] Ondansetron HCl [Zofran] 4 mg PO Q4H PRN 05/04/18 [History] Pantoprazole Sodium [Protonix] 40 mg PO DAILY 05/04/18 [History] Sucralfate [Carafate] 1 gm PO BID 05/04/18 [History] Aspirin 81 mg PO DAILY tab.chew 05/10/18 [Rx] Fluconazole [Diflucan] 100 mg PO DAILY #10 tablet 05/10/18 [Rx] Furosemide [Lasix] 40 mg PO BIDDIURETIC tablet 05/10/18 [Rx] Haloperidol [Haldol] 2.5 mg PO TID #15 tablet 05/10/18 [Rx] Insulin NPH/REG 70/30 (HUMAN) [Humulin 70/30 Vial] 10 unit SQ 0900,1700 [id number] 05/10/18 [Rx] OxyCODONE Immed Rel [Roxicodone 5 MG] 5 mg PO Q8H PRN #10 tablet 05/10/18 [Rx] Potassium Chloride 20 meq PO DAILY tab.er.prt 05/10/18 [Rx] Warfarin perPT [Coumadin perPT] 1 mg PO DAILY #0 05/10/18 [Rx] Allergies/Adverse Reactions: Allergy/AdvReac Type Severity Reaction Status Date / Time lidocaine Allergy See Verified 04/17/18 09:26 Comments - Respiratory Orders Smoking Cessation: Smoking cessation has been advised. For more information, call the [place] Tobacco Quit Line at 0-903-XKXP-NOW. - Advance Directives Code Status: Full Code - Rehabiliation Orders Rehab Potential: Fair Rehab Orders: Evaluation for Physical Therapy, Evaluation for Occupational Therapy (Follow physical director's instruction for wound care) CERTIFICATION: I certify that the transfer of the above named patient to an Extended Care Facility is necessary for the continuing treatment of the diagnosis listed. The above information is true and accurate reflection of patient's current condition. Confidential - Redisclosure prohibited without a patient's written consent.
[2018-05-10 15:25] VITALS: BP 124/80
[2018-05-10] MEDS ORDERED: Furosemide 40 MG TABLET PO SCH (17:00)
--- NOTE | 2018-05-10 17:05 | Infectious Disease Progress No ---
Date of Encounter: 05/10/18 Time of Encounter: 17:02 - Assessment and Plan (1) Altered mental status Current Visit: Yes Status: Acute Etiology unclear. Sudden onset. Clinically, does not appear to be infectious as the patient did not have any sepsis criteria. Improved per family's report. CT and MRI of the brain negative for acute changes. Psychiatry consulted, appreciate recommendations. Recommendations: - Further workup of AMS per the primary team. - Patient unable to be discharged on Ancef because it is every 8 hours Restart Rocephin 2 g IV 24 hours Creatinine clearance normal Duration of treatment depends on clinical picture Patient follow-up with Kacie Schmidt CNP in 1-2 weeks as an outpatient Monitor labs and for drug toxicity Discussed with the nursing staff, discussed with the hospitalist team and with the case management team.. Qualifiers: Altered mental status type: delirium Qualified Code(s): R41.0 - Disorientation, unspecified (2) Foot osteomyelitis, left Current Visit: Yes Status: Acute ocation: Left foot. Causative organism: MSSA, P. mirabilis. STatus post left lisfranc amputation 03/25/[address] Ayers. Status post left Chopart amputation 03/29/[address] Ayers. Status post left foot wound graft application 05/06/[address] Ayers. Clinically, the foot appears to be doing well. Inflammatory markers improved/stable. I do not think that the foot is acutely infected. Antibiotic recommendations as above. Qualifiers: Osteomyelitis type: chronic multifocal Qualified Code(s): M86.372 - Chronic multifocal osteomyelitis, left ankle and foot (3) Candiduria Current Visit: Yes Status: Acute (4) Non-pressure chronic ulcer of other part of left foot with fat layer exposed Current Visit: No Status: Acute (5) Insulin dependent diabetes mellitus Current Visit: No Status: Chronic (6) Anemia Current Visit: No Status: Chronic Qualifiers: Anemia type: iron deficiency Qualified Code(s): D50.9 - Iron deficiency anemia, unspecified (7) Atrial fibrillation Current Visit: No Status: Chronic Qualifiers: Atrial fibrillation type: paroxysmal Qualified Code(s): I48.0 - Paroxysmal atrial fibrillation (8) Cardiomyopathy Current Visit: Yes Status: Chronic Qualifiers: Cardiomyopathy type: unspecified Qualified Code(s): I42.9 - Cardiomyopathy, unspecified (9) Chronic kidney disease Current Visit: Yes Status: Acute Qualifiers: Chronic kidney disease stage: unspecified stage Qualified Code(s): N18.9 - Chronic kidney disease, unspecified - Subjective Interval history: Patient seen and examined. Appears comfortable lying in bed. at bed side. Review of systems unremarkable. Vital signs noted Labs reviewed Cultures reviewed Infect Dis PN-Objective Data - Labs CBC & Chem 7: 05/10/18 04:45 05/10/18 11:52 Labs: Laboratory Results - last 24 hr 05/08/18 05/08/18 05/08/18 11:19 16:32 20:20 WBC RBC Hgb Hct MCV MCH MCHC RDW Plt Count MPV PT INR Sodium Potassium Chloride Carbon Dioxide BUN Creatinine Est GFR ( Amer) Est GFR (Non-Af Amer) BUN/Creatinine Ratio Glucose POC Glucose 207 H 269 H 306 H Calculated Osmolality Calcium Magnesium B-Natriuretic Peptide 05/09/18 05/09/18 05/09/18 07:13 11:40 11:42 WBC RBC Hgb Hct MCV MCH MCHC RDW Plt Count MPV PT INR Sodium Potassium Chloride Carbon Dioxide BUN Creatinine Est GFR ( Amer) Est GFR (Non-Af Amer) BUN/Creatinine Ratio Glucose POC Glucose 250 H 355 H 369 H Calculated Osmolality Calcium Magnesium B-Natriuretic Peptide 05/09/18 05/10/18 05/10/18 21:27 01:43 01:44 WBC RBC Hgb Hct MCV MCH MCHC RDW Plt Count MPV PT INR Sodium Potassium Chloride Carbon Dioxide BUN Creatinine Est GFR ( Amer) Est GFR (Non-Af Amer) BUN/Creatinine Ratio Glucose POC Glucose 79 46 L* 44 L* Calculated Osmolality Calcium Magnesium B-Natriuretic Peptide 05/10/18 05/10/18 05/10/18 03:22 04:36 04:45 WBC 9.2 RBC 3.23 L Hgb 9.0 L Hct 28.0 L MCV 86.7 MCH 27.9 L MCHC 32.1 RDW 17.4 H Plt Count 330 MPV 12.3 PT INR Sodium Potassium Chloride Carbon Dioxide BUN Creatinine Est GFR ( Amer) Est GFR (Non-Af Amer) BUN/Creatinine Ratio Glucose POC Glucose 56 L 92 Calculated Osmolality Calcium Magnesium B-Natriuretic Peptide 05/10/18 05/10/18 05/10/18 04:45 04:45 04:45 WBC RBC Hgb Hct MCV MCH MCHC RDW Plt Count MPV PT 28.1 H INR 2.5 Sodium 142 Potassium 2.9 L D Chloride 103 Carbon Dioxide 35 H BUN 42 H Creatinine 0.78 Est GFR ( Amer) > 60 Est GFR (Non-Af Amer) > 60 BUN/Creatinine Ratio 54 H Glucose 95 POC Glucose Calculated Osmolality 304 H Calcium 8.3 L Magnesium 1.6 B-Natriuretic Peptide > 5000 H 05/10/18 05/10/18 05/10/18 08:02 11:06 11:52 WBC RBC Hgb Hct MCV MCH MCHC RDW Plt Count MPV PT INR Sodium 140 Potassium 3.5 Chloride 99 Carbon Dioxide 34 H BUN 35 H Creatinine 0.80 Est GFR ( Amer) > 60 Est GFR (Non-Af Amer) > 60 BUN/Creatinine Ratio 44 H Glucose 221 H POC Glucose 93 210 H Calculated Osmolality 305 H Calcium 8.4 L Magnesium B-Natriuretic Peptide Cultures: Cultures 05/04/18 11:19 Blood Culture - Final Peripheral Venipuncture No growth. Final report. 05/04/18 11:40 Blood Culture - Final Peripheral Venipuncture No growth. Final report. 05/04/18 11:45 Urine Culture - Final Urine,Catheterized Yeast Species Serology 05/05/18 05/04/18 Range/Units 12:34 11:45 Urine Color [place] A Yellow (Yellow) Urine Clarity Turbid A Cloudy A (Clear) Urine pH 5.0 5.0 (5.0-8.0) pH Units Ur Specific Victor 1.016 1.021 (1.010-1.025) Urine Protein 100 H (Neg-Trace) mg/dL Urine Glucose (UA) TNP 250 H (Normal) mg/dL Urine Ketones 15 H (Negative) mg/dL Urine Blood Large H (Negative) Urine Nitrite Negative (Negative) Urine Bilirubin Negative (Negative) Urine Urobilinogen Normal (Normal) mg/dL Ur Leukocyte Esterase Large H (Negative) Urine Microscopic RBC 0-3 (0-3) per hpf Urine Microscopic WBC TNTC H TNTC H (0-3) per hpf Ur Squamous Epith Cells Many H Many H (None-Few) per lpf Urine Bacteria Many H Present (None-Few) per hpf Hyaline Casts Test Not Performed Urine Yeast Many H (None Seen) per hpf Ur Culture Indicated? NO NO. A (NO) Exam - Constitutional Vitals: Temp Pulse Resp BP Pulse Ox 97.6 F 71 21 124/80 99 05/10/18 15:23 05/10/18 15:23 05/10/18 15:23 05/10/18 15:23 05/10/18 15:23 General appearance: cooperative, no febrile - Respiratory Respiratory exam: Present: CTAB. Absent: wheezes - Cardiovascular Cardiovascular exam: Present: RRR, +S1, +S2 - GI/Abdominal GI/Abdominal exam: Present: normal bowel sounds, soft. Absent: tenderness - Extremities Exam Extremities exam: Present: normal inspection. Absent: joint swelling - Neurological Exam Neurological exam: Present: alert, oriented X3 Consult Discharge Plan - Plan Additional Instructions: Patient admitted to the hospital. Return to the ER for any new altered mental status, fevers, chills, discolored urine, pain, or any new symptoms that may arise. Follow up in wound care with Dr. Ayers. Make appointment prior to D/C in 1 week. Referrals: Cuate Montano MD [Non-Partnered Physician] - Kacie Nunn [Advanced Practice Nurse] - 05/23/18 1:30 pm Martín Odonnell MD [Primary Care Provider] - (Will see primary physician at the [facility]. Thank you ) Yee Mary DO [Partnered Physician] - 05/26/18 9:50 am Magan Logan MD [Partnered Physician] - 05/23/18 2:25 pm Prescriptions: Fluconazole [Diflucan] 100 mg PO DAILY #10 tablet Haloperidol [Haldol] 2.5 mg PO TID #15 tablet
[2018-05-10] MEDS ORDERED: *HR* Warfarin 1 MG TABLET PO ONE (18:00)
[2018-05-11] MEDS ORDERED: Fluconazole 100 MG TABLET PO SCH (09:00)
== END 2018-05-10 17:05 | DRG 622 ==
LOC: EMEROOARM 11:03 → 3BNU 11:03 → 3ANU 05-09 16:15
PROVIDERS: ADMIT Hospitalist; ATTEND Hospitalist

== ENCOUNTER 2018-05-14 00:27 | Inpatient (IN) ==
--- NOTE | 2018-05-14 01:08 | Emergency Department Note ---
Disposition Clinical Impression: Pleural effusion, right CHF exacerbation Qualifiers: Heart failure type: unspecified Qualified Code(s): I50.9 - Heart failure, unspecified Disposition: Admitted As Inpatient Condition: Fair Referrals: Martín Odonnell MD [Primary Care Provider] - Forms: ED Satisfaction Letter, Work/School Release Time of Disposition: 04:35 General Adult HPI - General Chief complaint: ED General Medical Stated complaint: hyperglycemia Time Seen by Provider: 05/14/18 00:50 Source: family, EMS Mode of arrival: EMS Limitations: no limitations - History of Present Illness HPI Narrative: This is an 78-year-old female brought in by EMS because of elevated blood glucose it is been present for at least 10 hours. Family says that she has not been well since chest before , at which time she was identified with gangrene in her left foot. 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 She had a previous hospital admission since the surgery that involved a metabolic acidosis. Pain Scale: 0 - Related Data Home Medications Medication Instructions Recorded Confirmed Simvastatin [Zocor] 40 mg PO HS 02/23/17 05/04/18 Ergocalciferol (VITAMIN D2) 50,000 unit PO QWEEK 03/25/18 05/04/18 [Vitamin D2] Acetaminophen [Tylenol] 650 mg PO Q4H PRN 04/15/18 05/04/18 Dorzolamide/Timolol/Pf 1 drop RIGHT EYE BID 04/15/18 05/04/18 [Dorzolamide-Timolol 2%-0.5%] Nitroglycerin [Nitrostat] 0.4 mg SL PRN PRN 04/15/18 05/04/18 Collagenase Oint [Santyl] 30 gm TP DAILY 05/04/18 05/04/18 Lisinopril 2.5 mg PO DAILY 05/04/18 05/04/18 Melatonin [Melatin] 6 mg PO HS PRN 05/04/18 05/04/18 Methyl Salicylate/Menthol [Muscle 1 applic TP TID 05/04/18 05/04/18 Rub Cream] Metoprolol Succinate 50 mg PO DAILY 05/04/18 05/04/18 Ondansetron HCl [Zofran] 4 mg PO Q4H PRN 05/04/18 05/04/18 Pantoprazole Sodium [Protonix] 40 mg PO DAILY 05/04/18 05/04/18 Sucralfate [Carafate] 1 gm PO BID 05/04/18 05/04/18 Previous Rx's Medication Instructions Recorded Nystatin Cream [Mycostatin Cream] 1 appl TP TID #1 tube 04/19/18 Aspirin 81 mg PO DAILY tab.chew 05/10/18 Fluconazole [Diflucan] 100 mg PO DAILY #10 tablet 05/10/18 Furosemide [Lasix] 40 mg PO BIDDIURETIC tablet 05/10/18 Haloperidol [Haldol] 2.5 mg PO TID #15 tablet 05/10/18 Insulin NPH/REG 70/30 (HUMAN) 10 unit SQ 0900,1700 [id number] 05/10/18 [Humulin 70/30 Vial] OxyCODONE Immed Rel [Roxicodone 5 5 mg PO Q8H PRN #10 tablet 05/10/18 MG] Potassium Chloride 20 meq PO DAILY tab.er.prt 05/10/18 Warfarin perPT [Coumadin perPT] 1 mg PO DAILY #0 05/10/18 Allergies Allergy/AdvReac Type Severity Reaction Status Date / Time lidocaine Allergy See Verified 04/17/18 09:26 Comments All systems ED: reviewed and negative except as stated. Respiratory: Reports: other (Rapid ventilations) Endocrine: Reports: fatigue, other (Hyperglycemia) Past Medical History - Past Medical History Medical history: Reports: diabetes, renal disease, hypertension, coronary artery disease Surgical history: Reports: coronary bypass (CABG), orthopedic, other, splenectomy, appendectomy Psychiatric history: Reports: no psych history CONTENT DESIGNER history: Reports: no CONTENT DESIGNER history - Social History Smoking Status: Never smoker Smokeless Tobacco Status: No Alcohol use: Reports: none Drug use: Reports: none Physical Exam - General Limitations: no limitations General appearance: alert, in no apparent distress, lethargic - Head Head exam: atraumatic, normocephalic, normal inspection - Eye Eye exam: Present: other (The right eye has a pupil of about 2 mm, 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 Absent: tenderness, distention, guarding, rebound, rigidity - Extremities Exam Extremities exam: Present: normal inspection, full ROM, pedal edema (Nonpitting) - Neurological Exam Neurological exam: Present: alert, oriented X3 - Psychiatric Psychiatric exam: Present: normal affect, normal mood - Skin Skin exam: Present: warm, dry, intact, normal color Course Vital Signs Temperature 97.5 F L 05/14/18 00:37 Pulse Rate 70 05/14/18 00:37 Respiratory Rate 16 05/14/18 00:37 Blood Pressure 144/70 05/14/18 00:37 O2 Sat by Pulse Oximetry 100 05/14/18 00:37 Temperature 97.5 F L 05/14/18 00:37 Pulse Rate 71 05/14/18 04:03 Respiratory Rate 20 05/14/18 04:03 Blood Pressure 155/95 05/14/18 04:03 O2 Sat by Pulse Oximetry 100 05/14/18 04:03 Oxygen Delivery Oxygen Delivery Nasal Cannula Medical Decision Making - [facility] Narrative Medical decision making narrative: This is an 78-year-old female who appears to have CHF exacerbation and a moderately sized right pleural effusion which is increase since her last CT. Nitroglycerin, enalaprilat, and furosemide were given for CHF Oxygen was given which maintained her oximetry above 90% I discussed her case with the on-call hospitalist, who accepted her for admission - Lab Data Lab results reviewed: Yes I reviewed the patient's lab results. Lab results narrative: CBC shows anemia 10.0 and 31.9 BMP shows BUN elevated at 47 but creatinine 1.05 Troponin was slightly elevated at 0.07 D-dimer was grossly elevated above 5000 D-dimer was elevated at 1234 Result diagrams: 05/14/18 01:16 05/14/18 01:16 Lab Results 05/14/18 05/14/18 05/14/18 Range/Units 00:36 00:37 01:16 WBC 9.4 (4.3-11.1) K/mcL RBC 3.62 L (3.82-4.97) M/mcL Hgb 10.0 L (11.5-15.4) g/dL Hct 31.9 L (35.3-44.9) % MCV 88.1 (83.0-100.0) fL MCH 27.6 L (28.0-33.3) pg MCHC 31.3 L (31.6-35.5) g/dL RDW 17.1 H (11.5-14.5) % Plt Count 320 (140-400) K/mcL MPV 13.4 H (9.4-12.4) fL Immature Gran % 0.2 (0-4) % Seg Neutrophils % 69.8 % Lymphocytes % 18.8 % Monocytes % 8.0 % Eosinophils % 2.6 % Basophils % 0.6 % Neutrophils # 6.6 (1.6-8.9) K/mcL Lymphocytes # 1.8 (0.6-4.6) K/mcL Monocytes # 0.8 (0.0-1.3) K/mcL Eosinophils # 0.2 (0.0-0.6) K/mcL Basophils # 0.1 (0.0-0.2) K/mcL D-Dimer (0-500) ng/mLFEU Sodium (136-145) mEq/L Potassium (3.5-5.1) mEq/L Chloride (98-107) mEq/L Carbon Dioxide (23-29) mEq/L BUN (8-23) mg/dL Creatinine (0.60-1.20) mg/dL Est GFR ( Amer) (> 60) Est GFR (Non-Af Amer) (> 60) BUN/Creatinine Ratio (6-26) Glucose (70-105) mg/dL POC Glucose 462 H* 492 H* (70-99) mg/dL Calculated Osmolality (280-300) Lactic Acid (0.5-2.2) mmol/L Calcium (8.6-10.3) mg/dL Troponin I (< 0.04) ng/mL B-Natriuretic Peptide (Less than 100) pg/mL 05/14/18 05/14/18 05/14/18 Range/Units 01:16 01:16 01:16 WBC (4.3-11.1) K/mcL RBC (3.82-4.97) M/mcL Hgb (11.5-15.4) g/dL Hct (35.3-44.9) % MCV (83.0-100.0) fL MCH (28.0-33.3) pg MCHC (31.6-35.5) g/dL RDW (11.5-14.5) % Plt Count (140-400) K/mcL MPV (9.4-12.4) fL Immature Gran % (0-4) % Seg Neutrophils % % Lymphocytes % % Monocytes % % Eosinophils % % Basophils % % Neutrophils # (1.6-8.9) K/mcL Lymphocytes # (0.6-4.6) K/mcL Monocytes # (0.0-1.3) K/mcL Eosinophils # (0.0-0.6) K/mcL Basophils # (0.0-0.2) K/mcL D-Dimer 1234 H (0-500) ng/mLFEU Sodium 137 (136-145) mEq/L Potassium 3.7 (3.5-5.1) mEq/L Chloride 101 (98-107) mEq/L Carbon Dioxide 27 (23-29) mEq/L BUN 47 H (8-23) mg/dL Creatinine 1.05 (0.60-1.20) mg/dL Est GFR ( Amer) > 60 (> 60) Est GFR (Non-Af Amer) 50 L (> 60) BUN/Creatinine Ratio 45 H (6-26) Glucose 507 H* (70-105) mg/dL POC Glucose (70-99) mg/dL Calculated Osmolality 319 H (280-300) Lactic Acid 1.4 (0.5-2.2) mmol/L Calcium 8.3 L (8.6-10.3) mg/dL Troponin I 0.07 H* (< 0.04) ng/mL B-Natriuretic Peptide (Less than 100) pg/mL 05/14/18 Range/Units 01:16 WBC (4.3-11.1) K/mcL RBC (3.82-4.97) M/mcL Hgb (11.5-15.4) g/dL Hct (35.3-44.9) % MCV (83.0-100.0) fL MCH (28.0-33.3) pg MCHC (31.6-35.5) g/dL RDW (11.5-14.5) % Plt Count (140-400) K/mcL MPV (9.4-12.4) fL Immature Gran % (0-4) % Seg Neutrophils % % Lymphocytes % % Monocytes % % Eosinophils % % Basophils % % Neutrophils # (1.6-8.9) K/mcL Lymphocytes # (0.6-4.6) K/mcL Monocytes # (0.0-1.3) K/mcL Eosinophils # (0.0-0.6) K/mcL Basophils # (0.0-0.2) K/mcL D-Dimer (0-500) ng/mLFEU Sodium (136-145) mEq/L Potassium (3.5-5.1) mEq/L Chloride (98-107) mEq/L Carbon Dioxide (23-29) mEq/L BUN (8-23) mg/dL Creatinine (0.60-1.20) mg/dL Est GFR ( Amer) (> 60) Est GFR (Non-Af Amer) (> 60) BUN/Creatinine Ratio (6-26) Glucose (70-105) mg/dL POC Glucose (70-99) mg/dL Calculated Osmolality (280-300) Lactic Acid (0.5-2.2) mmol/L Calcium (8.6-10.3) mg/dL Troponin I (< 0.04) ng/mL B-Natriuretic Peptide > 5000 H (Less than 100) pg/mL - Radiology Data Radiology results reviewed: Yes I reviewed the patient's radiology results. Chest x-ray was concerning for possible CHF and right pleural effusion CTA chest showed a moderate sized right pleural effusion that is larger than before. - EKG Data EKG #1 EKG attestation: Yes I reviewed and interpreted this EKG. EKG results narrative: ECH showed sinus rhythm, 69 bpm, normal intervals, normal axis, no ST or T-wave abnormalities Critical Care Time Critical Care Time: Yes Total Critical Care Time: 25 Attestation: 25 minutes of critical care time was invested independent of separately billable procedures
[2018-05-14 01:30] LABS: Basophils # 0.1 K/mcL (0.0-0.2); Basophils % 0.6 %; Eosinophils # 0.2 K/mcL (0.0-0.6); Eosinophils % 2.6 %; Hematocrit 31.9 % (35.3-44.9); Immature Granulocytes % 0.2 % (0-4); Lymphocytes # 1.8 K/mcL (0.6-4.6); Lymphocytes % 18.8 %; Mean Corpuscular HGB Conc 31.3 g/dL (31.6-35.5); Mean Corpuscular Hemoglobin 27.6 pg (28.0-33.3); Mean Corpuscular Volume 88.1 fL (83.0-100.0); Mean Platelet Volume 13.4 fL (9.4-12.4); Monocytes # 0.8 K/mcL (0.0-1.3); Neutrophils # 6.6 K/mcL (1.6-8.9); Platelet Count 320 K/mcL (140-400); Red Blood Count 3.62 M/mcL (3.82-4.97); Red Cell Distribution Width 17.1 % (11.5-14.5); Segmented Neutrophils % 69.8 %
[2018-05-14 02:07] LABS: BUN/Creatinine Ratio 45 (6-26); Blood Urea Nitrogen 47 mg/dL (8-23); Calcium 8.3 mg/dL (8.6-10.3); Carbon Dioxide 27 mEq/L (23-29); Chloride 101 mEq/L (98-107); Osmolality,Calculated 319 (280-300); Potassium 3.7 mEq/L (3.5-5.1); Sodium 137 mEq/L (136-145); Troponin I 0.07 ng/mL (< 0.04); eGFR For Non-African Americans 50 (> 60)
[2018-05-14] MEDS ORDERED: Isovue-370 500 ML INFUS..BTL IV ONE (03:10)
[2018-05-14] MEDS ORDERED: Furosemide 40 MG/4 ML VIAL IVP ONE (04:14)
[2018-05-14] MEDS ORDERED: Nitroglycerin 0.4 MG TAB.SUBL SL ONE (04:16)
[2018-05-14] MEDS ORDERED: Naloxone 0.4 MG/ML INJ IVP PRN (06:06)
[2018-05-14] MEDS ORDERED: D5% in Water 1,000 ML IVC PRN (06:07)
[2018-05-14] MEDS ORDERED: *HR* Dextrose 50 % in Water (Syg) 50 ML SYRINGE IVP PRN (06:07)
[2018-05-14] MEDS ORDERED: Dextrose Gel 15 GM/37.5 ML TUBE PO PRN ×2 (06:07)
[2018-05-14] MEDS ORDERED: Insulin LISPRO 300 UNITS/3 ML VIAL SQ ONE (06:09)
[2018-05-14 06:12] LABS: INR 1.9
--- NOTE | 2018-05-14 06:24 | Internal Med History&Physical ---
<Malik Hernandez - Last Filed: 05/14/18 06:13> Date of Encounter: 05/14/18 Time of Encounter: 06:13 Internal Medicine - H&P: HPI Chief complaint: Respiratory failure Admitted From: Emergency Dept History of present illness: Ms. Kaplan is a 78 year old female presenting with respiratory failure secondary to CHF. 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 History was taken by and [id number] due to altered mental status of patient. Per family and patient patient's mental status and respiratory capacity has been decreasing since her left foot amputation in mid-April. She was admitted last week for altered mental status and was discharged on oxygen. Prior to that visit she has not required oxygen. During this visit patient was initially admitted for a high glucose of over 500. Labs showed that she had a troponin of 0.07 and BNP greater than 5000. CX R showed CHF with alveolar edema and perihilar interstitial airspace opacities. CTA showed enlarging right pleural effusion seen on last visit. Patient has CHF with a TTE done on 01/28 showing 20-25% ejection fraction. She currently is on 40 Lasix. She is taking warfarin and is on Rocephin for osteomyelitis. Upon admission her Was normal and her osmolality was 319. Family denies that the patient has had fever, cough, abdominal pain, changes in stool character, changes in urination. 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, blind left eye Psychiatric history: no psych history - Past Surgical History Surgical History: coronary bypass (CABG), orthopedic, other, splenectomy, appendectomy Additional surgical history: broke left foot (screws in left foot) left foot am putation, quadruple bypass - Social History Smoking Status: Never smoker Smokeless Tobacco Status: No Alcohol use: none Drug use: none - Family History Mother Living Status: Hx Family Cardiac Disorders: No Hx Family Respiratory Disorders: No Hx Family Cancer: Yes (Uterine Cancer) Hx Family GI Disorders: No Hx Family Endocrine Disorder: No Hx Family Neuromuscular Disorders: No Hx Family Neurologic Disorders: No Hx Family HEENT Disorders: No Hx Family Autoimmune Disorders: No Father Adopted: No Living Status: Hx Family Cardiac Disorders: No Hx Family Respiratory Disorders: No Hx Family Cancer: Yes Hx Family Endocrine Disorder: No Hx Family Neuromuscular Disorders: No Hx Family Neurologic Disorders: No Hx Family HEENT Disorders: No Hx Family Autoimmune Disorders: No Internal Medicine - H&P: Meds Simvastatin [Zocor] 40 mg PO HS 02/23/17 [History] Ergocalciferol (VITAMIN D2) [Vitamin D2] 50,000 unit PO QWEEK 03/25/18 [History] Acetaminophen [Tylenol] 650 mg PO Q4H PRN 04/15/18 [History] Dorzolamide/Timolol/Pf [Dorzolamide-Timolol 2%-0.5%] 1 drop RIGHT EYE BID 04/15/18 [History] Nitroglycerin [Nitrostat] 0.4 mg SL PRN PRN 04/15/18 [History] Nystatin Cream [Mycostatin Cream] 1 appl TP TID #1 tube 04/19/18 [Rx] Collagenase Oint [Santyl] 30 gm TP DAILY 05/04/18 [History] Lisinopril 2.5 mg PO DAILY 05/04/18 [History] Melatonin [Melatin] 6 mg PO HS PRN 05/04/18 [History] Methyl Salicylate/Menthol [Muscle Rub Cream] 1 applic TP TID 05/04/18 [History] Metoprolol Succinate 50 mg PO DAILY 05/04/18 [History] Ondansetron HCl [Zofran] 4 mg PO Q4H PRN 05/04/18 [History] Pantoprazole Sodium [Protonix] 40 mg PO DAILY 05/04/18 [History] Sucralfate [Carafate] 1 gm PO BID 05/04/18 [History] Aspirin 81 mg PO DAILY tab.chew 05/10/18 [Rx] Fluconazole [Diflucan] 100 mg PO DAILY #10 tablet 05/10/18 [Rx] Furosemide [Lasix] 40 mg PO BIDDIURETIC tablet 05/10/18 [Rx] Haloperidol [Haldol] 2.5 mg PO TID #15 tablet 05/10/18 [Rx] Insulin NPH/REG 70/30 (HUMAN) [Humulin 70/30 Vial] 10 unit SQ 0900,1700 [id number] 05/10/18 [Rx] OxyCODONE Immed Rel [Roxicodone 5 MG] 5 mg PO Q8H PRN #10 tablet 05/10/18 [Rx] Potassium Chloride 20 meq PO DAILY tab.er.prt 05/10/18 [Rx] Warfarin perPT [Coumadin perPT] 1 mg PO DAILY #0 05/10/18 [Rx] Allergy/AdvReac Type Severity Reaction Status Date / Time lidocaine Allergy See Verified 04/17/18 09:26 Comments ROS unobtainable: due to mental status All Systems PM: A 10-system review of systems was performed and is negative for pertinent findings except as documented above in the HPI. - Constitutional Constitutional: fatigue, falls, lethargy - Cardiovascular Cardiovascular ROS IM: no chest pain - Respiratory Respiratory: dyspnea - Gastrointestinal Gastrointestinal: no abdominal pain - Neurological Neurological ROS: confusion - Psychiatric Psychiatric: confusion - Constitutional Vitals: Temp Pulse Resp BP Pulse Ox 97.5 F L 84 18 152/86 99 05/14/18 00:37 05/14/18 04:57 05/14/18 05:36 05/14/18 05:36 05/14/18 04:57 General appearance: Present: A&O X 0, mild distress. Absent: answers questions appropriately Exam: . - Head Head exam: Present: atraumatic, normal inspection - Eye Eye exam: Present: EOMI, normal appearance - Neck Neck exam general surgery: Present: supple, trachea midline - Respiratory Additional comments: Only able to auscultate the apex of the lungs from the front due to patient's altered mental status. Had apex mild wheezes were heard. - Cardiovascular Cardiovascular exam: Present: RRR, +S1, +S2 - Extremities Exam Extremities exam: Present: joint swelling, mottling, warm. Absent: cyanotic - Expanded Lower Extremities Exam Lower Leg exam: Present: deformity (amputation of left leg), erythema, swelling. Absent: tenderness - Neurological Exam Neurological exam: Present: altered. Absent: oriented X3 - Psychiatric Psychiatric exam: Present: agitated - Skin Skin exam: Present: dry, intact, warm Internal Med - H&P Results - Labs CBC & Chem 7: 05/14/18 01:16 05/14/18 01:16 Labs: Short CBC 05/14/18 Range/Units 01:16 WBC 9.4 (4.3-11.1) K/mcL Hgb 10.0 L (11.5-15.4) g/dL Hct 31.9 L (35.3-44.9) % Plt Count 320 (140-400) K/mcL Neutrophils # 6.6 (1.6-8.9) K/mcL BMP 05/14/18 01:16 Sodium 137 Potassium 3.7 Chloride 101 Carbon Dioxide 27 BUN 47 H Creatinine 1.05 Glucose 507 H* Calcium 8.3 L Cardiac Enzymes 05/14/18 Range/Units 01:16 Troponin I 0.07 H* (< 0.04) ng/mL - Impressions ITS Impressions Chest X-Ray 05/14/18 01:01 IMPRESSION: 1. Diffuse interstitial and bilateral perihilar airspace opacities suggestive of interstitial and alveolar edema in the setting of congestive heart failure given mild cardiomegaly. Pneumonia could appear similar. 2. Suspected trace bilateral pleural effusions. D/ / Cameron Cowan MD / Cameron Cowan MD Interpreting Provider: Cameron Cowan MD Chest CTA 05/14/18 03:10 IMPRESSION: 1. Limited exam with no definite evidence for pulmonary embolus. 2. Enlarging right pleural effusion. D/ / Chava Garcia MD / Chava Garcia MD Interpreting Provider: Chava Garcia MD - Assessment and plan (1) Acute on chronic combined systolic (congestive) and diastolic (congestive) heart failure Current Visit: Yes Status: Acute Assessment and plan: He-year-old female presenting with decreased respiratory capacity with history significant for CHF. Echo in January showed EF of 20-25%. CTA showed enlarging right pleural effusion. His chest x-ray shows mild cardiomegaly megaly with alveolar edema and perihilar plus interstitial airway opacities. Troponin done in ED showed mild elevation of 0.07. - Consult pulmonology for drainage of pleural effusion - Consult cardiology for management of CHF. - Patient taking warfarin order INR - Trend troponins 3. - Weight monitoring plus strict I/Os (2) Diabetes mellitus with hyperglycemia, with long-term current use of insulin Current Visit: Yes Status: Acute Assessment and plan: Patient has glucose of 507. Normal gap. Osmolality 319 slightly elevated over normal just 300. Will treat like hyperglycemia without DKA or HHS. - 10 units of regular insulin ordered - Accu-Cheks with meals every at bedtime - Medium insulin correction daily at bedtime - Recommend a.m. team see how patient responds to his regimen and prescribed basal insulin at a.m. and p.m. if indicated. Qualifiers: Qualified Code(s): E11.65 - Type 2 diabetes mellitus with hyperglycemia; Z79.4 - [facility]FP (current) use of insulin - Time Spent With Patient Total time spent is greater than 50% in coordination of care (as documented) at patient's floor/unit and/or counseling patient: <Jaciel Lang - Last Filed: 05/14/18 07:39> Date of Encounter: 05/14/18 Internal Medicine - H&P: HPI History of present illness: Ms. Kaplan is a 78 year old female All Systems PM: A 10-system review of systems was performed and is negative for pertinent find ings except as documented above in the HPI. - Constitutional Vitals: Temp Pulse Resp BP Pulse Ox 97.5 F L 84 18 152/86 99 05/14/18 00:37 05/14/18 04:57 05/14/18 05:36 05/14/18 05:36 05/14/18 04:57 Internal Med - H&P Results - Labs CBC & Chem 7: 05/14/18 01:16 05/14/18 01:16 Labs: Short CBC 05/14/18 Range/Units 01:16 WBC 9.4 (4.3-11.1) K/mcL Hgb 10.0 L (11.5-15.4) g/dL Hct 31.9 L (35.3-44.9) % Plt Count 320 (140-400) K/mcL Neutrophils # 6.6 (1.6-8.9) K/mcL BMP 05/14/18 01:16 Sodium 137 Potassium 3.7 Chloride 101 Carbon Dioxide 27 BUN 47 H Creatinine 1.05 Glucose 507 H* Calcium 8.3 L Cardiac Enzymes 05/14/18 Range/Units 01:16 Troponin I 0.07 H* (< 0.04) ng/mL - Impressions ITS Impressions Chest X-Ray 05/14/18 01:01 IMPRESSION: 1. Diffuse interstitial and bilateral perihilar airspace opacities suggestive of interstitial and alveolar edema in the setting of congestive heart failure given mild cardiomegaly. Pneumonia could appear similar. 2. Suspected trace bilateral pleural effusions. D/ / Cameron Cowan MD / Cameron Cowan MD Interpreting Provider: Cameron Cowan MD Chest CTA 05/14/18 03:10 IMPRESSION: 1. Limited exam with no definite evidence for pulmonary embolus. 2. Enlarging right pleural effusion. D/ / Chava Garcia MD / Chava Garcia MD Interpreting Provider: Chava Garcia MD - Time Spent With Patient Total time spent is greater than 50% in coordination of care (as documented) at patient's floor/unit and/or counseling patient: - Attending Attestation I saw and evaluated the patient. I reviewed the residents note, performed my own physical examination and agree with findings and plan as documented in the residents note. Patient seen and examined on 05/14/18. Patient presented initially for elevated blood sugar, found to have continued elevated BNP, CHF exacerbation and worsening pleural effusion. Patient not cooperative with exam, but is alert and oriented. at bedside stated that she normally is with it. She recently had surgery on her left foot, after which the says she really started to decline. Recently here in the hospital, discharged on 05/10, had elevated BNP during that visit as well greater than 5000. Will try lasix BID, consult cardiology for assistance on diuretic use. Elevated troponin likely secondary to demand ischemia, will continue to trend. Will also continue her antibiotics started for her foot infection from previous, ceftriaxone 2g daily IV. Patient's blood sugar also elevated, will try regular insulin, 10 units and monitor through the day. Likely will need basal insulin at night and insulin with meals. states that her baseline sugars are 150-200.
[2018-05-14 06:41] LABS: Glucose 507 mg/dL (70-105)
--- NOTE | 2018-05-14 08:35 | Cardiology Consult Note ---
<Yossi Amezcua - Last Filed: 05/14/18 09:45> Date of Encounter: 05/14/18 Time of Encounter: 08:35 Assessment and Plan (1) Altered mental status Current Visit: No Status: Acute Per Cardiology: Management per primary service. Currently alert and oriented 2-- patient believed she was in [place]. Qualifiers: Altered mental status type: delirium Qualified Code(s): R41.0 - Disorientat ion, unspecified (2) CHF exacerbation Current Visit: Yes Status: Acute Per Cardiology: Known cardiomyopathy. Echo shows EF 20-25%. EF 25-30% on SUDEEP March 2018. Negative nuclear stress test April 2018. Chest x-ray showing CHF and right- sided pleural effusion. BNP greater than 5000. On IV Lasix 40 mg twice a day. On strict I's and O's. We will measure daily weights and add 1.5 L fluid restriction. Will increase Lasix to 80 mg IV twice a day. Monitor kidney function closely. On nasal cannula oxygen-- apparently recently started at home. Can consider ICD evaluation if clinical appropriate in outpatient [facility]. Qualifiers: Heart failure type: systolic Qualified Code(s): I50.23 - Acute on chronic systolic (congestive) heart failure (3) Pleural effusion, right Current Visit: Yes Status: Acute Per Cardiology: Pulmonology consult pending for evaluation of possible right-sided th oracentesis. (4) Elevated troponin Current Visit: No Status: Acute Per Cardiology: Chest pain free. History of CAD with CABG. Mild troponin elevation of 0.07 in setting of CHF right-sided pleural effusion and mental status changes. Had mild troponin elevations April 2018 with negative nuclear chest test. Suspect type II demand ischemia, no cardiac rehabilitation consult warranted. (5) Elevated d-dimer Current Visit: Yes Status: Acute Per Cardiology: D-dimer elevated at 1234. CT shows no definite evidence of PE. Anticoagulated with Coumadin for paroxysmal atrial fibrillation. (6) PAF (paroxysmal atrial fibrillation) Current Visit: Yes Status: Chronic Per Cardiology: Per review of medical records, incidental finding of atrial fibrillation during recent hospital stay. Currently sinus rhythm in the 80s. Regarding long-term anticoagulation, anticoagulated with Coumadin with INR 1.9. H&H stable. Discussion w patient/family: The assessment and plan as outlined above was discussed with the patient and/or family members who expressed understanding and agreement. All questions were answered. Thank you for involving us in the care of your patient. Please call with any questions. History of Present Illness Consult date: 05/14/18 Requesting physician: Malik Hernandez Consult reason: CHF, Trop Chief complaint: SOB History of present illness: Previous records reviewed: "Ms. Kaplan is a 78 year old female presenting with respiratory failure secondary to CHF. 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 History was taken by and [id number] due to altered mental status of patient. Per family and patient patient's mental status and respiratory capacity has been decreasing since her left foot amputation in mid-April. She was admitted last week for altered mental status and was discharged on oxygen. Prior to that visit she has not required oxygen". Cardiology consult for CHF and mild troponin elevation. Of note, this is 4th C ardiology consult in the past 6 weeks. Relevant past medical history of atrial fibrillation on Coumadin, DM2, recent osteomyelitis status post left foot amputation, CAD with history of CABG, cardiomyopathy, and anemia. Patient seen with at bedside. Patient alert to person and time, however she thought she was in [place]. Pleasant and cooperative. Positive movement of atrial fibrillation is 4. She denies any chest pain, palpitations. Reports some mild shortness of breath. reports recent we started on oxygen at home. She denies any other concerns or complaints today. Past Med Surg Social Fam HX - Past Medical History Attestation: Yes The following information was validated with the patient. 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, blind left eye Psychiatric history: no psych history - Past Surgical History Surgical History: coronary bypass (CABG), orthopedic, other, splenectomy, appendectomy Additional surgical history: broke left foot (screws in left foot) left foot amputation, quadruple bypass - Social History Smoking Status: Never smoker Smokeless Tobacco Status: No Alcohol use: none Drug use: none - Family History Mother Living Status: Hx Family Cardiac Disorders: No Hx Family Respiratory Disorders: No Hx Family Cancer: Yes (Uterine Cancer) Hx Family GI Disorders: No Hx Family Endocrine Disorder: No Hx Family Neuromuscular Disorders: No Hx Family Neurologic Disorders: No Hx Family HEENT Disorders: No Hx Family Autoimmune Disorders: No Father Adopted: No Living Status: Hx Family Cardiac Disorders: No Hx Family Respiratory Disorders: No Hx Family Cancer: Yes Hx Family Endocrine Disorder: No Hx Family Neuromuscular Disorders: No Hx Family Neurologic Disorders: No Hx Family HEENT Disorders: No Hx Family Autoimmune Disorders: No Medications and Allergies Simvastatin [Zocor] 40 mg PO HS 02/23/17 [History] Ergocalciferol (VITAMIN D2) [Vitamin D2] 50,000 unit PO QWEEK 03/25/18 [History] Acetaminophen [Tylenol] 650 mg PO Q4H PRN 04/15/18 [History] Dorzolamide/Timolol/Pf [Dorzolamide-Timolol 2%-0.5%] 1 drop RIGHT EYE BID 04/15/18 [History] Nitroglycerin [Nitrostat] 0.4 mg SL PRN PRN 04/15/18 [History] Nystatin Cream [Mycostatin Cream] 1 appl TP TID #1 tube 04/19/18 [Rx] Collagenase Oint [Santyl] 30 gm TP DAILY 05/04/18 [History] Lisinopril 2.5 mg PO DAILY 05/04/18 [History] Melatonin [Melatin] 6 mg PO HS PRN 05/04/18 [History] Methyl Salicylate/Menthol [Muscle Rub Cream] 1 applic TP TID 05/04/18 [History] Metoprolol Succinate 50 mg PO DAILY 05/04/18 [History] Ondansetron HCl [Zofran] 4 mg PO Q4H PRN 05/04/18 [History] Pantoprazole Sodium [Protonix] 40 mg PO DAILY 05/04/18 [History] Sucralfate [Carafate] 1 gm PO BID 05/04/18 [History] Aspirin 81 mg PO DAILY tab.chew 05/10/18 [Rx] Fluconazole [Diflucan] 100 mg PO DAILY #10 tablet 05/10/18 [Rx] Furosemide [Lasix] 40 mg PO BIDDIURETIC tablet 05/10/18 [Rx] Haloperidol [Haldol] 2.5 mg PO TID #15 tablet 05/10/18 [Rx] Insulin NPH/REG 70/30 (HUMAN) [Humulin 70/30 Vial] 10 unit SQ 0900,1700 [id number] 05/10/18 [Rx] OxyCODONE Immed Rel [Roxicodone 5 MG] 5 mg PO Q8H PRN #10 tablet 05/10/18 [Rx] Potassium Chloride 20 meq PO DAILY tab.er.prt 05/10/18 [Rx] Warfarin perPT [Coumadin perPT] 1 mg PO DAILY #0 05/10/18 [Rx] Allergy/AdvReac Type Severity Reaction Status Date / Time lidocaine Allergy See Verified 04/17/18 09:26 Comments All Systems Review: The remainder of the systems were reviewed and are negative - Cardiovascular Cardiovascular: as per HPI, dyspnea at rest Physical Examination Vital Signs, Last 4 Hours Temp Pulse Resp BP Pulse Ox 05/14/18 08:06 97.8 F 67 18 152/89 100 05/14/18 05:36 18 152/86 05/14/18 04:57 84 24 155/90 99 General: Conversant, No Apparent Distress HEENT: Atraumatic, Normocephaly, Mucus Membranes Moist Neck: No JVD, Normal carotid pulses Cardiac: Reg Rate and Rhythm, Normal S1 and S2, No Murmur Lungs: Other (Mild conversational dyspnea noted, diminished breath sounds to bilateral bases right greater than left, rhonchi noted to right lower lobe) Neuro: Alert and responsive, No focal deficits noted, Other (Alert and oriented 2) Abdomen: Soft, Non-Tender Skin: No rashes noted on visualized skin, Other (Left foot dressing dry and intact) Musculoskeletal: No Chest Wall Tenderness Extremities: No Clubbing, No Cyanosis, Normal Pulses, Other (+1 nonpitting edema to right lower extremity) Results 05/14/18 01:16 05/14/18 01:16 Lab Results Laboratory Tests 05/14/18 05/14/18 05/14/18 01:16 01:16 01:16 Hgb 10.0 L Hct 31.9 L INR 1.9 D-Dimer 1234 H Creatinine 1.05 Est GFR (Non-Af Amer) 50 L Glucose 507 H* Troponin I 0.07 H* B-Natriuretic Peptide 05/14/18 01:16 Hgb Hct INR D-Dimer Creatinine Est GFR (Non-Af Amer) Glucose Troponin I B-Natriuretic Peptide > 5000 H Impressions Chest X-Ray 05/14/18 01:01 IMPRESSION: 1. Diffuse interstitial and bilateral perihilar airspace opacities suggestive of interstitial and alveolar edema in the setting of congestive heart failure given mild cardiomegaly. Pneumonia could appear similar. 2. Suspected trace bilateral pleural effusions. D/ / Cameron Cowan MD / Cameron Cowan MD Interpreting Provider: Cameron Cowan MD Chest CTA 05/14/18 03:10 IMPRESSION: 1. Limited exam with no definite evidence for pulmonary embolus. 2. Enlarging right pleural effusion. D/ / Chava Garcia MD / Chava Garcia MD Interpreting Provider: Chava Garcia MD Intake & Output 05/11/18 05/12/18 05/13/18 05/14/18 23:59 23:59 23:59 23:59 Weight 91.898 kg Active Medications Dextrose/Water (Dextrose 50% (Syg)) 25 ml IVP AD PRN PRN Reason: Hypoglycemia Stop: 11/13/18 06:08 Furosemide (Lasix) 40 mg IVP BID THADDEUS Stop: 11/13/18 09:01 Glucagon (Glucagen) 1 mg IM ONCE PRN PRN Reason: Hypoglycemia Stop: 11/13/18 06:08 Glucose (Gluctose) 15 gm PO ONCE PRN PRN Reason: Hypoglycemia Stop: 11/13/18 06:08 Glucose (Gluctose) 30 gm PO ONCE PRN PRN Reason: Hypoglycemia Stop: 11/13/18 06:08 Dextrose (Dextrose 5%) 1,000 mls @ 100 mls/hr IVC .Q10H PRN PRN Reason: HYPOGLYCEMIA Stop: 11/13/18 06:08 Ceftriaxone Sodium 2,000 mg/ (Sterile Water) 20 mls @ 600 mls/hr IVP Q24H THADDEUS Stop: 11/13/18 08:01 Insulin Human Lispro (Humalog) 0 units SQ HS THADDEUS; Protocol Stop: 11/13/18 21:01 Naloxone HCl (Narcan) 0.4 mg IVP Q2MIN PRN PRN Reason: SEE COMMENTS Stop: 11/13/18 06:07 Warfarin Sodium (Coumadin Perpt) 1 each PO DAILY@1800 PRN PRN Reason: SEE COMMENTS Stop: 11/13/18 18:01 Warfarin Sodium (Coumadin) 1 mg PO 1800 ONE Stop: 05/14/18 18:01 - Imaging and Cardiology Echo: report reviewed, other (SUDEEP 03/2018: Impressions: No valvular vegetation. LVEF 25-30 %. Severe global LV hypokinesis. Moderatel global RV hypokinesis. Mildly dilated LA. Mild mitral regurgitation. Moderate tricuspid regurgitation. Moderate pulmonary hypertension.) - EKG Interpretation EKG results cardiology: other (No ECG available on floor to review, no current ECG available in medical records, will obtain, currently sinus rhythm on telemetry in the 70s to 80s) Consult Discharge Plan - Plan Referrals: Martín Odonnell MD [Primary Care Provider] - <Yee Mary - Last Filed: 05/14/18 11:57> Date of Encounter: 05/14/18 - Attending Attestation I examined this patient and my medical decision-making was reviewed with the VP [employer]. I agree with the documented findings, disposition and treatment plan as described. Ms. Kaplan presents with SOB. She has systolic heart failure recently discovered but chronicity unknown - hasn't followed with Cardiology since her bypass. Recent stress testing negative for ischemia. She presents with mild acute on now chronic systolic heart failure. Per son, it appears that there has been lack of clarity about her medications at the nursing facilities. She's been admitted and discharged several times recently and he was concerned that she's not been on appropriate meds. We did review her current medication list - statin, ACEI, BB, ASA have been restarted. She is on coumadin for antico agulation of PAF. Diuresis per primary team. Troponins are flat, adynamic not representing ACS. Patient denies chest pain. No acute ischemic findings on ECG done today. Will sign off at this time. Please call with questions. Assessment and Plan Discussion w patient/family: The assessment and plan as outlined above was discussed with the patient and/or family members who expressed understanding and agreement. All questions were answered. Thank you for involving us in the care of your patient. Please call with any questions. History of Present Illness History of present illness: Ms. Kaplan is a 78 year old female All Systems Review: The remainder of the systems were reviewed and are negative Physical Examination Vital Signs, Last 4 Hours Temp Pulse Resp BP Pulse Ox 05/14/18 11:48 98.0 F 67 16 138/74 100 05/14/18 08:06 97.8 F 67 18 152/89 100 Results 05/14/18 01:16 05/14/18 01:16 Lab Results 05/14/18 05/14/18 05/14/18 01:16 01:16 01:16 WBC 9.4 Hgb 10.0 L Hct 31.9 L Plt Count 320 INR 1.9 D-Dimer 1234 H Sodium 137 Potassium 3.7 Chloride 101 Carbon Dioxide 27 BUN 47 H Creatinine 1.05 Glucose 507 H* Calcium 8.3 L Troponin I 0.07 H* B-Natriuretic Peptide 05/14/18 01:16 WBC Hgb Hct Plt Count INR D-Dimer Sodium Potassium Chloride Carbon Dioxide BUN Creatinine Glucose Calcium Troponin I B-Natriuretic Peptide > 5000 H
[2018-05-14] MEDS ORDERED: Furosemide 40 MG/4 ML VIAL IVP SCH (09:00)
[2018-05-14] MEDS: cefTRIAXone 2,000 MG in Water for inj. (sterile) 20 ML 20 ML IVP SCH (09:44)
[2018-05-14] MEDS: Furosemide 40 MG/4 ML VIAL IVP SCH ×2 (09:45→17:08)
--- NOTE | 2018-05-14 10:25 | Event Note ---
Date of Encounter: 05/14/18 Time of Encounter: 10:20 - Cardiology Event Note Discussed and reviewed with Dr. Mary, chronicity of cardiomyopathy unknown and patient apparently had no cardiology f/u since bypass around 2000. Recent negative nuclear stress test. Troponins flat and adynamic. Chest pain-free. No further cardiac recommendations. Follow-up as planned with cardiology in outpatient setting and can evaluate if further ischemic evaluation clinically appropriate. All questions answered. Follow-up arranged.
--- NOTE | 2018-05-14 15:01 | Event Note ---
Date of Encounter: 05/14/18 Time of Encounter: 13:40 Patient seen and examined this morning. Alert and oriented. Difficulty to hear and see. Denies any complaints. Exam Constitutional: Vitals as noted. Conversant. No Apparent Distress. Eyes : Sclera white, conjunctiva clear, no lid lag, PEARLA. ENT : Grossly normal hearing. Oropharyngeal exam unremarkable. Moist mucus membranes. mild JVD, no cervical lymphadenopathy. no thyromegaly or mass. Respiratory : Clear to auscultation bilaterally. No accessory muscle use, rhonchi or wheezes. Decreased entry at bases. Crackles at bases Cardiovascular : RRR, +S1, +S2. no murmur, gallop, rubs. No chest wall tenderness GI/Abdominal : Soft, Non-tender, Non-distended, normal bowel sounds, soft, no peritoneal signs. no orgenomegaly or mass appreciated. no hernia. Musculoskeletal: no deformity noted. 1+ edema. warm extremities, pulses palpable and symmetrical in UE/LE. no calf tenderness. Lt mid-foot amputation. Neurological: AO X2, CN II-XII grossly intact, grossly normal motor and sensory exam. Skin: No skin rash, lesions or ulcers noted. Assessment 1 acute on chronic systolic and diastolic heart failure 2 uncontrolled diabetes 3. recent osteomyelitis with left midfoot amputation on antibiotics 4. Hypertension 5 coronary artery disease status post CABG 6 altered mental status 7 cardiomyopathy 8 A. fib 9 history of CVA 10 elevated troponin 11 pleural effusion right 12 elevated d-dimer 11 anemia of chronic disease 13 subtherapeutic INR Plan - Continue diuresis with Lasix 80 twice a day IV. Monitor renal function. Hold lisinopril for now Monitor ins and outs strictly. Daily weights. - Recent negative stress test. Elevated troponin likely demand. No further cardiac workup. Cardiology following - Pulmonology consultation for possible thoracentesis - Start Levemir 10 units for uncontrolled diabetes along with sliding scale insulin and Accu-Cheks. - Continue home metoprolol and warfarin for A. fib. Pharmacy to dose warfarin to bring INR therapeutic. - Mental status improving per at bedside. Continue ceftriaxone for osteomyelitis speech has been extended for few weeks more as per .
[2018-05-14] MEDS: Metoprolol XL (24 HR) Succ 25 MG TAB.ER.24H PO SCH (15:11)
[2018-05-14] MEDS: Aspirin 81 MG TAB.CHEW PO SCH (15:11)
[2018-05-14] MEDS ORDERED: Insulin DETEMIR 100 UNIT/ML X5UNITS SQ ONE (15:50)
[2018-05-14] MEDS: Insulin LISPRO 300 UNITS/3 ML VIAL SQ SCH ×2 (17:09→22:05)
[2018-05-14] MEDS ORDERED: *HR* Warfarin 1 MG TABLET PO ONE (18:00)
[2018-05-14] MEDS ORDERED: Warfarin perPT PO PRN (18:00)
[2018-05-15 01:56] LABS: INR 2.1
[2018-05-15 02:00] LABS: BUN/Creatinine Ratio 39 (6-26); Blood Urea Nitrogen 38 mg/dL (8-23); Calcium 8.3 mg/dL (8.6-10.3); Carbon Dioxide 33 mEq/L (23-29); Chloride 101 mEq/L (98-107); Glucose 100 mg/dL (70-105); Osmolality,Calculated 301 (280-300); Potassium 3.1 mEq/L (3.5-5.1); Sodium 141 mEq/L (136-145); eGFR For Non-African Americans 55 (> 60)
[2018-05-15] MEDS: Metoprolol XL (24 HR) Succ 25 MG TAB.ER.24H PO SCH (08:09)
[2018-05-15] MEDS: Insulin LISPRO 300 UNITS/3 ML VIAL SQ SCH ×4 (08:09→20:14)
[2018-05-15] MEDS: Aspirin 81 MG TAB.CHEW PO SCH (08:09)
[2018-05-15] MEDS: Furosemide 40 MG/4 ML VIAL IVP SCH ×2 (08:10→18:33)
[2018-05-15] MEDS: cefTRIAXone 2,000 MG in Water for inj. (sterile) 20 ML 20 ML IVP SCH (08:10)
[2018-05-15] MEDS ORDERED: Melatonin 3 MG TABLET PO PRN (10:36)
[2018-05-15] MEDS ORDERED: Metoprolol XL (24 HR) Succ 25 MG TAB.ER.24H PO ONE (10:43)
--- NOTE | 2018-05-15 13:51 | Internal Med Progress Note ---
Hospitalist Progress Note - Encounter Date of Encounter: 05/15/18 Time of Encounter: 11:45 - Subjective Interval History: Patient seen and examined this morning. No acute overnight events. Breathing slightly better. Slightly altered. Denies any chest pain. Saturating well on nasal cannula lying flat. - Exam Vitals: Temp Pulse Resp BP Pulse Ox 98 F 85 14 143/84 100 05/15/18 12:00 05/15/18 12:00 05/15/18 12:00 05/15/18 12:00 05/15/18 12:00 Exam: Constitutional: Vitals as noted. No Apparent Distress. obese ENT : Grossly normal hearing. Oropharyngeal exam unremarkable. Moist mucus membranes. mild JVD, no cervical lymphadenopathy. no thyromegaly or mass. Respiratory : Clear to auscultation bilaterally. No accessory muscle use, rhonchi or wheezes. Decreased entry at bases. Crackles at bases Cardiovascular : RRR, +S1, +S2. no murmur, gallop, rubs. No chest wall tenderness GI/Abdominal : Soft, Non-tender, Non-distended, normal bowel sounds, soft, no peritoneal signs. no orgenomegaly or mass appreciated. no hernia. Musculoskeletal: no deformity noted. 1+ edema. warm extremities, pulses palpable and symmetrical in UE/LE. no calf tenderness. Lt mid-foot amputation. Neurological: AO X2, CN II-XII grossly intact, grossly normal motor and sensory exam. - Assessment and Plan (1) Acute on chronic combined systolic (congestive) and diastolic (congestive) heart failure Current Visit: Yes Status: Acute (2) Diabetes mellitus with hyperglycemia, with long-term current use of insulin Current Visit: Yes Status: Acute - Summary of Assessment and Plan Summary of Assessment and Plan: Acute on chronic systolic and diastolic heart failure - Continue diuresis with Lasix 80 twice a day IV. Monitor renal function. Hold lisinopril for now Monitor ins and outs strictly. Daily weights. - Recent negative stress test. Elevated troponin likely demand. No further cardiac workup. Cardiology signed off. uncontrolled diabetes - No well controlled. Received 10 units of levemir yesterday. c/w 10 units today as BG slightly low - c/w insulin sliding scale and accuchecks recent osteomyelitis with left midfoot amputation on antibiotics - c/w Ceftriaxone 2 gm. elevated troponin - Likely demand from CHF with cardiomyopathy. to f/u cardio outpatient pleural effusion right - Likely transudative with CHF. - c/w diuresis - Pulm consulted hypokalemia - repleted elevated d-dimer - CTA negative for PE. Likely related to osteomyelitis and warfarin use. Hypertension - c/w metoprolol CAD - c/w aspirin, statin and betablocker altered mental status A. fib - rate controlled on warfarin - Time Spent with Patient Total time spent is greater than 50% in coordination of care (as documented) at patient's floor/unit and/or counseling patient: Internal Medicine: Result - Labs CBC & Chem 7: 05/14/18 01:16 05/15/18 01:40 Labs: BMP 05/15/18 01:40 Sodium 141 Potassium 3.1 L Chloride 101 Carbon Dioxide 33 H BUN 38 H Creatinine 0.97 Glucose 100 Calcium 8.3 L Cardiac Enzymes 05/14/18 05/15/18 Range/Units 18:12 01:40 Troponin I 0.07 H* 0.09 H* (< 0.04) ng/mL - ABG Interpretation ABG results: PT/INR, D-dimer PT 24.0 Seconds (9.4-12.1) H 05/15/18 01:10 D-Dimer 1234 ng/mLFEU (0-500) H 05/14/18 01:16 Consult Discharge Plan - Plan Referrals: Martín Odonnell MD [Primary Care Provider] - (2) Diabetes mellitus with hyperglycemia, with long-term current use of insulin Qualifiers: Qualified Code(s): E11.65 - Type 2 diabetes mellitus with hyperglycemia; 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
--- NOTE | 2018-05-15 13:54 | Pulmonology Consult Note ---
<Kenney Hook S - Last Filed: 05/15/18 14:08> Date of Encounter: 05/15/18 Time of Encounter: 13:46 Assessment and Plan (1) Pleural effusion Current Visit: Yes Status: Acute Likely secondary to underlying CHF - likely a transudative effusion, although would need fluid sample for definitive diagnosis - pt has no known hx of cancer, is UTD on colonoscopy, and is a lifetime nonsmoker Last ECHO was 04/16/18 - LVEF 20-25% - moderately dilated LV - RV hypokinesis - biatrial enlargement CXR on admission - diffuse interstitial and bilateral perihilar airspace opacities suggestive of interstitial and alveolar edema - mild cardiomegaly CT on 05/14 - Enlarging right pleural effusion, negative for PE PT 24, INR 2.1 Plan: - pt wishes to have conservative treatment for now with diuresis - 80mg IVP lasix BID as per primary - strict I&O - daily weight - fluid restriction diet 1.5 L - continue to monitor renal fxn, electrolytes - will re-evaluate pt in the morning and determine if thoracentesis is necessary - check PT/INR in AM (2) CHF exacerbation Current Visit: Yes Status: Acute Pt with known hx of systolic HF, LVEF 20-25% CXR showing mild cardiomegaly, alveolar edema, perihilar/interstitial patchy opacities Troponin 0.07 ---> 0.09, likely type 2 MO from demand ischemia - denies active chest pain Plan: - see plan as above - diuresis, daily weight, I&O Qualifiers: Heart failure type: combined systolic and diastolic Qualified Code(s): I50.43 - Acute on chronic combined systolic (congestive) and diastolic (congestive) heart failure (3) A-fib Current Visit: Yes Status: Acute On coumadin Qualifiers: Atrial fibrillation type: chronic Qualified Code(s): I48.2 - Chronic atrial fibrillation (4) Diabetes Current Visit: Yes Status: Acute Presented with BG 507 - normal gap - osmolality 319 Treated as per primary like hyperglycemia, NOT DKA/HHS Glucose this AM was 100, osmolality 301 Plan: - regular insulin as per primary - accuchecks as per protocol - MDSS Qualifiers: Diabetes mellitus type: type 2 Diabetes mellitus manager long term care insulin use: with manager long term care use Diabetes mellitus complication detail: with diabetic retinopathy Diabetic retinopathy severity: with unspecified retinopathy severity Diabetes mellitus macular edema: macular edema presence unspecified Laterality: left Qualified Code(s): E11.319 - Type 2 diabetes mellitus with unspecified diabetic retinopathy without macular edema; Z79.4 - intermediate card tender (current) use of insulin History of Present Illness Consult date: 05/14/18 Requesting physician: aMlik Hernandez Reason for consult: pleural effusion Chief complaint: high sugar History of present illness: Ms. Kaplan is an 78yo female with PMH of T2DM, HTN, CAD, CABG x 4 (2000), MO x 2 (1999, 2000), cataracts, and systolic CHF. She presented to the ER on 05/14 with the chief complaint of high blood glucose. She was found to be in respiratory failure secondary to CHF exacerbation. Of note the pt was recently admitted for amputation of the left toes due to osteomyelitis. According to the and i nfo gathered from notes, the pt was altered on presentation and not able to give a hx. states that the pt was found to have a BG in the 500's at the [facility]. She was given levemir and glucose was still elevated so she was brought in. They both deny any chest pain, abd pain, N/V/D, fevers, chills, or dysuria. She has some shortness of breath, mostly related to the pleural effusion, wi thout cough or sputum production. She is a lifetime nonsmoker. She has no known environmental risk factors. She has no pets at home, although at one time had dogs. CXR showed alveolar edema and perihilar airspace opacities on admission. CTA showed enlarging right pleural effusion seen on last visit. She is consulted for pleural effusion. 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, blind left eye Psychiatric history: no psych history - Past Surgical History Surgical History: coronary bypass (CABG), orthopedic, other, splenectomy, appendectomy Additional surgical history: broke left foot (screws in left foot) left foot amputation, quadruple bypass - Social History Smoking Status: Never smoker Smokeless Tobacco Status: No Alcohol use: none Drug use: none - Family History Mother Living Status: Hx Family Cardiac Disorders: No Hx Family Respiratory Disorders: No Hx Family Cancer: Yes (Uterine Cancer) Hx Family GI Disorders: No Hx Family Endocrine Disorder: No Hx Family Neuromuscular Disorders: No Hx Family Neurologic Disorders: No Hx Family HEENT Disorders: No Hx Family Autoimmune Disorders: No Father Adopted: No Living Status: Hx Family Cardiac Disorders: No Hx Family Respiratory Disorders: No Hx Family Cancer: Yes Hx Family Endocrine Disorder: No Hx Family Neuromuscular Disorders: No Hx Family Neurologic Disorders: No Hx Family HEENT Disorders: No Hx Family Autoimmune Disorders: No Medications and Allergies Simvastatin [Zocor] 40 mg PO HS 02/23/17 [History] Ergocalciferol (VITAMIN D2) [Vitamin D2] 50,000 unit PO QWEEK 03/25/18 [History] Acetaminophen [Tylenol] 650 mg PO Q4H PRN 04/15/18 [History] Nystatin Cream [Mycostatin Cream] 1 appl TP TID #1 tube 04/19/18 [Rx] Collagenase Oint [Santyl] 30 gm TP DAILY 05/04/18 [History] Lisinopril 2.5 mg PO DAILY 05/04/18 [History] Melatonin [Melatin] 6 mg PO HS PRN 05/04/18 [History] Methyl Salicylate/Menthol [Muscle Rub Cream] 1 applic TP TID 05/04/18 [History] Metoprolol Succinate 50 mg PO DAILY 05/04/18 [History] Ondansetron HCl [Zofran] 4 mg PO Q4H PRN 05/04/18 [History] Pantoprazole Sodium [Protonix] 40 mg PO DAILY 05/04/18 [History] Sucralfate [Carafate] 1 gm PO BID 05/04/18 [History] Aspirin 81 mg PO DAILY tab.chew 05/10/18 [Rx] Fluconazole [Diflucan] 100 mg PO DAILY #10 tablet 05/10/18 [Rx] Furosemide [Lasix] 40 mg PO BIDDIURETIC tablet 05/10/18 [Rx] Haloperidol [Haldol] 2.5 mg PO TID #15 tablet 05/10/18 [Rx] Insulin NPH/REG 70/30 (HUMAN) [Humulin 70/30 Vial] 10 unit SQ 0900,1700 [id number] 05/10/18 [Rx] OxyCODONE Immed Rel [Roxicodone 5 MG] 5 mg PO Q8H PRN #10 tablet 05/10/18 [Rx] Potassium Chloride 20 meq PO DAILY tab.er.prt 05/10/18 [Rx] Warfarin perPT [Coumadin perPT] 1 mg PO DAILY #0 05/10/18 [Rx] Cefazolin Sodium/D5w [Cefazolin 2 G/50 ml-D5w Bag] 2 gm IV DAILY 05/14/18 [History] Dorzolamide HCl/Pf [Dorzolamide 2% Eye Drop] 1 drop RIGHT EYE BID 05/14/18 [History] Allergy/AdvReac Type Severity Reaction Status Date / Time lidocaine Allergy See Verified 04/17/18 09:26 Comments All Systems: The remainder of the systems were reviewed and are negative - Constitutional Constitutional: no chills, no fever(s) - EENT Eyes: loss of vision - Cardiovascular Cardiovascular: leg edema, no chest pain, no chest pain at rest, no chest pain with activity, no dyspnea, no dyspnea on exertion, no irregular heart rhythm - Respiratory Respiratory: no cough, no dyspnea, no hemoptysis, no dyspnea on exertion, no excessive phlegm production - Gastrointestinal Gastrointestinal: no abdominal pain, no diarrhea, no melena, no nausea, no vomiting - Genitourinary Genitourinary: no dysuria - Musculoskeletal Musculoskeletal: weakness, no numbness, no tingling - Neurological Neurological: weakness, no dizziness, no headache(s), no tingling Physical Examination Vital Signs: Vital Signs, Last 4 Hours Temp Pulse Resp BP Pulse Ox 05/15/18 12:00 98 F 85 14 143/84 100 General appearance: no acute distress, alert Eyes: nonicteric ENT: oropharynx moist Effort: mildly labored Inspection: normal Auscultation: bilateral: diminished breath sounds Cardiovascular: regular rate and rhythm Gastrointestinal: normoactive bowel sounds, soft, non-tender, non-distended Integumentary: normal Extremities: no clubbing, edema Musculoskeletal: other (left toes amputated) normal mental status, non-focal exam mood appropriate, affect normal Results - Laboratory Findings CBC and BMP: 05/14/18 01:16 05/15/18 01:40 PT/INR, D-dimer PT 24.0 Seconds (9.4-12.1) H 05/15/18 01:10 D-Dimer 1234 ng/mLFEU (0-500) H 05/14/18 01:16 Abnormal lab findings: Abnormal lab results RBC 3.62 M/mcL (3.82-4.97) L 05/14/18 01:16 Hgb 10.0 g/dL (11.5-15.4) L 05/14/18 01:16 Hct 31.9 % (35.3-44.9) L 05/14/18 01:16 MCH 27.6 pg (28.0-33.3) L 05/14/18 01:16 MCHC 31.3 g/dL (31.6-35.5) L 05/14/18 01:16 RDW 17.1 % (11.5-14.5) H 05/14/18 01:16 MPV 13.4 fL (9.4-12.4) H 05/14/18 01:16 PT 24.0 Seconds (9.4-12.1) H 05/15/18 01:10 D-Dimer 1234 ng/mLFEU (0-500) H 05/14/18 01:16 Potassium 3.1 mEq/L (3.5-5.1) L 05/15/18 01:40 Carbon Dioxide 33 mEq/L (23-29) H 05/15/18 01:40 BUN 38 mg/dL (8-23) H 05/15/18 01:40 Est GFR (Non-Af Amer) 55 (> 60) L 05/15/18 01:40 BUN/Creatinine Ratio 39 (6-26) H 05/15/18 01:40 POC Glucose 141 mg/dL (70-99) H 05/15/18 07:12 Calculated Osmolality 301 (280-300) H 05/15/18 01:40 Calcium 8.3 mg/dL (8.6-10.3) L 05/15/18 01:40 Troponin I 0.09 ng/mL (< 0.04) H* 05/15/18 01:40 B-Natriuretic Peptide > 5000 pg/mL (Less than 100) H 05/14/18 01:16 - Clinical Findings Intake & Output: Intake & Output 05/14/18 05/15/18 05/15/18 23:59 07:59 15:59 Intake Total 0 / 0 0 / 0 120 / 120 Output Total 1200 / 1200 500 / 500 Balance -1200 / -1200 0 / 0 -380 / -380 Weight 85.4 kg Consult Discharge Plan - Plan Referrals: Martín Odonnell MD [Primary Care Provider] - <Angella Garcia - Last Filed: 05/15/18 17:16> Date of Encounter: 05/15/18 All Systems: The remainder of the systems were reviewed and are negative Physical Examination Vital Signs: Vital Signs, Last 4 Hours Temp Pulse Resp BP Pulse Ox 05/15/18 12:00 98 F 85 14 143/84 100 Results - Laboratory Findings CBC and BMP: 05/14/18 01:16 05/15/18 01:40 PT/INR, D-dimer PT 24.0 Seconds (9.4-12.1) H 05/15/18 01:10 D-Dimer 1234 ng/mLFEU (0-500) H 05/14/18 01:16 Abnormal lab findings: Abnormal lab results RBC 3.62 M/mcL (3.82-4.97) L 05/14/18 01:16 Hgb 10.0 g/dL (11.5-15.4) L 05/14/18 01:16 Hct 31.9 % (35.3-44.9) L 05/14/18 01:16 MCH 27.6 pg (28.0-33.3) L 05/14/18 01:16 MCHC 31.3 g/dL (31.6-35.5) L 05/14/18 01:16 RDW 17.1 % (11.5-14.5) H 05/14/18 01:16 MPV 13.4 fL (9.4-12.4) H 05/14/18 01:16 PT 24.0 Seconds (9.4-12.1) H 05/15/18 01:10 D-Dimer 1234 ng/mLFEU (0-500) H 05/14/18 01:16 Potassium 3.1 mEq/L (3.5-5.1) L 05/15/18 01:40 Carbon Dioxide 33 mEq/L (23-29) H 05/15/18 01:40 BUN 38 mg/dL (8-23) H 05/15/18 01:40 Est GFR (Non-Af Amer) 55 (> 60) L 05/15/18 01:40 BUN/Creatinine Ratio 39 (6-26) H 05/15/18 01:40 POC Glucose 141 mg/dL (70-99) H 05/15/18 07:12 Calculated Osmolality 301 (280-300) H 05/15/18 01:40 Calcium 8.3 mg/dL (8.6-10.3) L 05/15/18 01:40 Troponin I 0.09 ng/mL (< 0.04) H* 05/15/18 01:40 B-Natriuretic Peptide > 5000 pg/mL (Less than 100) H 05/14/18 01:16 - Clinical Findings Intake & Output: Intake & Output 05/14/18 05/15/18 05/15/18 23:59 07:59 15:59 Intake Total 0 / 0 0 / 0 120 / 120 Output Total 1200 / 1200 500 / 500 Balance -1200 / -1200 0 / 0 -380 / -380 Weight 85.4 kg - Attending Attestation I examined this patient and my medical decision-making was reviewed with the Resident Physician. I agree with the documented findings, disposition and loraine tment plan as described except to the extent set forth below. Patient seen and examined. Labs, radiology, chart personally reviewed. 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 Most likely this is would be transudate of in nature secondary to her underlying cardiac disease and diuretics hopefully will help. Please call for any questions if patient does not feel better with be happy to arrange for diagnostic and therapeutic thoracentesis. Subsequently I have discussed and seen patient's and she wished to have thoracentesis. Nurse to hold anticoagulation and will check pleural effusion with ultrasound and decide about thoracentesis tomorrow. Thank you for consultation
--- NOTE | 2018-05-15 16:55 | Electrocardiograph Report ---
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
[2018-05-15] MEDS: *HR* Warfarin 1 MG TABLET PO SCH (18:32)
[2018-05-15] MEDS: Dorzolamide OPTH 10 ML BOTTLE RIGHT EYE SCH (20:14)
[2018-05-15] MEDS: Sucralfate 1 GM TABLET PO SCH (20:14)
[2018-05-15] MEDS: Insulin DETEMIR 100 UNIT/ML X5UNITS SQ SCH (20:14)
[2018-05-16 04:41] LABS: INR 2.1; Prothrombin Time 23.5 Seconds (9.4-12.1)
[2018-05-16 05:02] LABS: Calcium 8.9 mg/dL (8.6-10.3); Potassium 3.8 mEq/L (3.5-5.1)
[2018-05-16] MEDS: Insulin LISPRO 300 UNITS/3 ML VIAL SQ SCH ×4 (07:57→21:18)
[2018-05-16] MEDS: cefTRIAXone 2,000 MG in Water for inj. (sterile) 20 ML 20 ML IVP SCH (08:00)
[2018-05-16] MEDS: Aspirin 81 MG TAB.CHEW PO SCH (08:00)
[2018-05-16] MEDS: Metoprolol XL (24 HR) Succ 50 MG TAB.ER.24H PO SCH (08:00)
[2018-05-16] MEDS: Sucralfate 1 GM TABLET PO SCH ×2 (08:00→21:17)
[2018-05-16] MEDS: Furosemide 40 MG/4 ML VIAL IVP SCH ×2 (08:02→17:47)
[2018-05-16] MEDS: Dorzolamide OPTH 10 ML BOTTLE RIGHT EYE SCH ×2 (08:03→21:17)
--- NOTE | 2018-05-16 09:02 | Pulmonology Progress Note ---
<Kenney Hook S - Last Filed: 05/16/18 09:58> Date of Encounter: 05/16/18 Time of Encounter: 09:00 Assessment and Plan (1) Pleural effusion Current Visit: Yes Status: Acute Likely secondary to underlying CHF - likely a transudative effusion, although would need fluid sample for definitive diagnosis - pt has no known hx of cancer, is UTD on colonoscopy, and is a lifetime nonsmoker Last ECHO was 04/16/18 - LVEF 20-25% - moderately dilated LV - RV hypokinesis - biatrial enlargement CXR on admission - diffuse interstitial and bilateral perihilar airspace opacities suggestive of interstitial and alveolar edema - mild cardiomegaly CT on 05/14 - Enlarging right pleural effusion, negative for PE PT 23.5, INR 2.1 Plan: - plan was for bedside thoracentesis this morning, however, not enough fluid to drain - 80mg IVP lasix BID as per primary - strict I&O - daily weight - fluid restriction diet 1.5 L - continue to monitor renal fxn, electrolytes (2) CHF exacerbation Current Visit: Yes Status: Acute Pt with known hx of systolic HF, LVEF 20-25% CXR showing mild cardiomegaly, alveolar edema, perihilar/interstitial patchy opacities Troponin 0.07 ---> 0.09, likely type 2 GA from demand ischemia - denies active chest pain Plan: - see plan as above Qualifiers: Heart failure type: combined systolic and diastolic Qualified Code(s): I50.43 - Acute on chronic combined systolic (congestive) and diastolic (congestive) heart failure (3) A-fib Current Visit: Yes Status: Acute On Coumadin Qualifiers: Atrial fibrillation type: chronic Qualified Code(s): I48.2 - Chronic atrial fibrillation (4) Diabetes Current Visit: Yes Status: Acute Glucose on BMP 101 this morning Presented with BG 507 Treated as per primary like hyperglycemia, NOT DKA/HHS Glucose this AM was 100, osmolality 301 Plan: - regular insulin as per primary was given on admission - accuchecks as per protocol - MDSS Qualifiers: Diabetes mellitus type: type 2 Diabetes mellitus parts counterman insulin use: with parts counterman use Diabetes mellitus complication detail: with diabetic retinopathy Diabetic retinopathy severity: with unspecified retinopathy severity Diabetes mellitus macular edema: macular edema presence unspecified Laterality: left Qualified Code(s): E11.319 - Type 2 diabetes mellitus with unspecified diabetic retinopathy without macular edema; Z79.4 - penitentiary (current) use of insulin Subjective Principal diagnosis: pleural effusion Interval history: Pt is seen at bedside. She still has c/o SOB and trouble breathing. It is not much better since yesterday. She is agreeable to bedside thoracentesis this morning with Dr. Garcia but on US there isn't enough fluid to drain. She denies active chest pain, abd pain, N/V/D, or headache. Objective PUL Vital signs: Last Vital Signs Temp 97.8 F 05/16/18 06:36 Pulse 87 05/16/18 06:36 Resp 16 05/16/18 06:36 BP 138/72 05/16/18 06:36 Pulse Ox 95 05/16/18 06:36 General appearance: no acute distress, alert Eyes: nonicteric ENT: oropharynx moist Effort: mildly labored Auscultation: right: rhonchi, bilateral: diminished breath sounds Cardiovascular: regular rate and rhythm Gastrointestinal: normoactive bowel sounds, soft, tender, non-distended Integumentary: normal Extremities: no cyanosis, edema normal mental status, non-focal exam mood appropriate, affect normal Results - Laboratory Findings CBC and BMP: 05/14/18 01:16 05/16/18 04:19 PT/INR, D-dimer PT 23.5 Seconds (9.4-12.1) H 05/16/18 04:19 D-Dimer 1234 ng/mLFEU (0-500) H 05/14/18 01:16 Abnormal lab findings: Abnormal lab results RBC 3.62 M/mcL (3.82-4.97) L 05/14/18 01:16 Hgb 10.0 g/dL (11.5-15.4) L 05/14/18 01:16 Hct 31.9 % (35.3-44.9) L 05/14/18 01:16 MCH 27.6 pg (28.0-33.3) L 05/14/18 01:16 MCHC 31.3 g/dL (31.6-35.5) L 05/14/18 01:16 RDW 17.1 % (11.5-14.5) H 05/14/18 01:16 MPV 13.4 fL (9.4-12.4) H 05/14/18 01:16 PT 23.5 Seconds (9.4-12.1) H 05/16/18 04:19 D-Dimer 1234 ng/mLFEU (0-500) H 05/14/18 01:16 Carbon Dioxide 33 mEq/L (23-29) H 05/16/18 04:19 BUN 38 mg/dL (8-23) H 05/16/18 04:19 Est GFR ( Amer) 59 (> 60) L 05/16/18 04:19 Est GFR (Non-Af Amer) 48 (> 60) L 05/16/18 04:19 BUN/Creatinine Ratio 35 (6-26) H 05/16/18 04:19 POC Glucose 265 mg/dL (70-99) H 05/15/18 20:03 Calculated Osmolality 301 (280-300) H 05/16/18 04:19 Troponin I 0.09 ng/mL (< 0.04) H* 05/15/18 01:40 B-Natriuretic Peptide > 5000 pg/mL (Less than 100) H 05/14/18 01:16 - Clinical Findings Intake & Output: Intake & Output 05/15/18 05/16/18 05/16/18 23:59 07:59 15:59 Intake Total 200 / 200 100 / 100 Output Total 1800 / 1800 Balance -1600 / -1600 100 / 100 Weight 81.4 kg Consult Discharge Plan - Plan Referrals: Martín Odonnell MD [Primary Care Provider] - <Angella Garcia - Last Filed: 05/16/18 11:33> Date of Encounter: 05/16/18 Objective PUL Vital signs: Last Vital Signs Temp 97.8 F 05/16/18 06:36 Pulse 87 05/16/18 06:36 Resp 16 05/16/18 06:36 BP 138/72 05/16/18 06:36 Pulse Ox 95 05/16/18 06:36 Results - Laboratory Findings CBC and BMP: 05/14/18 01:16 05/16/18 04:19 PT/INR, D-dimer PT 23.5 Seconds (9.4-12.1) H 05/16/18 04:19 D-Dimer 1234 ng/mLFEU (0-500) H 05/14/18 01:16 Abnormal lab findings: Abnormal lab results RBC 3.62 M/mcL (3.82-4.97) L 05/14/18 01:16 Hgb 10.0 g/dL (11.5-15.4) L 05/14/18 01:16 Hct 31.9 % (35.3-44.9) L 05/14/18 01:16 MCH 27.6 pg (28.0-33.3) L 05/14/18 01:16 MCHC 31.3 g/dL (31.6-35.5) L 05/14/18 01:16 RDW 17.1 % (11.5-14.5) H 05/14/18 01:16 MPV 13.4 fL (9.4-12.4) H 05/14/18 01:16 PT 23.5 Seconds (9.4-12.1) H 05/16/18 04:19 D-Dimer 1234 ng/mLFEU (0-500) H 05/14/18 01:16 Carbon Dioxide 33 mEq/L (23-29) H 05/16/18 04:19 BUN 38 mg/dL (8-23) H 05/16/18 04:19 Est GFR ( Amer) 59 (> 60) L 05/16/18 04:19 Est GFR (Non-Af Amer) 48 (> 60) L 05/16/18 04:19 BUN/Creatinine Ratio 35 (6-26) H 05/16/18 04:19 POC Glucose 265 mg/dL (70-99) H 05/15/18 20:03 Calculated Osmolality 301 (280-300) H 05/16/18 04:19 Troponin I 0.09 ng/mL (< 0.04) H* 05/15/18 01:40 B-Natriuretic Peptide > 5000 pg/mL (Less than 100) H 05/14/18 01:16 - Clinical Findings Intake & Output: Intake & Output 05/15/18 05/16/18 05/16/18 23:59 07:59 15:59 Intake Total 200 / 200 100 / 100 Output Total 1800 / 1800 Balance -1600 / -1600 100 / 100 Weight 81.4 kg - Attending Attestation I examined this patient and my medical decision-making was reviewed with the Resident Physician. I agree with the documented findings, disposition and treatment plan as described except to the extent set forth below. Patient seen and examined. Labs, radiology, chart personally reviewed. 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 Call for any questions.
--- NOTE | 2018-05-16 16:02 | Internal Med Progress Note ---
Hospitalist Progress Note - Encounter Date of Encounter: 05/16/18 Time of Encounter: 16:00 - Exam Vitals: Temp Pulse Resp BP Pulse Ox 98 F 76 15 133/68 98 05/16/18 11:53 05/16/18 11:53 05/16/18 11:53 05/16/18 11:53 05/16/18 11:53 Exam: Constitutional: Vitals as noted. No Apparent Distress. obese ENT : Grossly normal hearing. Oropharyngeal exam unremarkable. Moist mucus mem branes. mild JVD, no cervical lymphadenopathy. no thyromegaly or mass. Respiratory : Clear to auscultation bilaterally. No accessory muscle use, rhonchi or wheezes. Decreased entry at bases. Crackles at bases Cardiovascular : RRR, +S1, +S2. no murmur, gallop, rubs. No chest wall tenderness GI/Abdominal : Soft, Non-tender, Non-distended, normal bowel sounds, soft, no peritoneal signs. no orgenomegaly or mass appreciated. no hernia. Musculoskeletal: no deformity noted. 1+ edema. warm extremities, pulses palpable and symmetrical in UE/LE. no calf tenderness. Lt mid-foot amputation. Neurological: AO X2, CN II-XII grossly intact, grossly normal motor and sensory exam. - Assessment and Plan (1) Acute on chronic combined systolic (congestive) and diastolic (congestive) heart failure Current Visit: Yes Status: Acute Assessment and Plan: He-year-old female presenting with decreased respiratory capacity with history significant for CHF. Echo in January showed EF of 20-25%. Continue Iv lasix BID. Monitor ins and outs. Not enough fluid to drain per pulmonary for thoracentesis (2) Diabetes mellitus with hyperglycemia, with long-term current use of insulin Current Visit: Yes Status: Acute Assessment and Plan: Continue insulin and monitor fingersticks. (3) Foot osteomyelitis, left Current Visit: Yes Status: Acute Assessment and Plan: Continue ceftraixone 2gm Iv daily to complete 4 week course (4) Hypokalemia Current Visit: Yes Status: Acute Assessment and Plan: Replaced (5) Coronary artery disease Current Visit: Yes Status: Acute Assessment and Plan: Continue aspirin, statin and beta linda (6) A-fib Current Visit: Yes Status: Acute Assessment and Plan: On coumadin and beta linda DVT Prophylaxis: On coumadin - Time Spent with Patient Total time spent is greater than 50% in coordination of care (as documented) at patient's floor/unit and/or counseling patient: Internal Medicine: Result - Labs CBC & Chem 7: 05/14/18 01:16 05/16/18 04:19 Labs: BMP 05/16/18 04:19 Sodium 141 Potassium 3.8 Chloride 100 Carbon Dioxide 33 H BUN 38 H Creatinine 1.09 Glucose 101 Calcium 8.9 - ABG Interpretation ABG results: PT/INR, D-dimer PT 23.5 Seconds (9.4-12.1) H 05/16/18 04:19 D-Dimer 1234 ng/mLFEU (0-500) H 05/14/18 01:16 Consult Discharge Plan - Plan Referrals: Martín Odonnell MD [Primary Care Provider] - (2) Diabetes mellitus with hyperglycemia, with long-term current use of insulin Qualifiers: Qualified Code(s): E11.65 - Type 2 diabetes mellitus with hyperglycemia; Z79.4 - terminal clerk (current) use of insulin (3) Foot osteomyelitis, left Qualifiers: Osteomyelitis type: chronic multifocal Qualified Code(s): M86.372 - Chronic multifocal osteomyelitis, left ankle and foot (6) A-fib Qualifiers: Atrial fibrillation type: chronic Qualified Code(s): I48.2 - Chronic atrial fibrillation
[2018-05-16] MEDS: *HR* Warfarin 1 MG TABLET PO SCH (17:48)
[2018-05-16] MEDS: Insulin DETEMIR 100 UNIT/ML X5UNITS SQ SCH (21:17)
[2018-05-17 05:48] LABS: Prothrombin Time 22.1 Seconds (9.4-12.1)
[2018-05-17 06:01] LABS: BUN/Creatinine Ratio 35 (6-26); Blood Urea Nitrogen 35 mg/dL (8-23); Calcium 8.9 mg/dL (8.6-10.3); Carbon Dioxide 32 mEq/L (23-29); Chloride 100 mEq/L (98-107); Glucose 151 mg/dL (70-105); Osmolality,Calculated 305 (280-300); Potassium 3.5 mEq/L (3.5-5.1); Sodium 142 mEq/L (136-145); eGFR For Non-African Americans 54 (> 60)
[2018-05-17 06:34] VITALS: BP 131/70
[2018-05-17] MEDS: Sucralfate 1 GM TABLET PO SCH (07:39)
[2018-05-17] MEDS: Metoprolol XL (24 HR) Succ 50 MG TAB.ER.24H PO SCH (07:39)
[2018-05-17] MEDS: cefTRIAXone 2,000 MG in Water for inj. (sterile) 20 ML 20 ML IVP SCH (07:39)
[2018-05-17] MEDS: Aspirin 81 MG TAB.CHEW PO SCH (07:39)
[2018-05-17] MEDS: Furosemide 40 MG/4 ML VIAL IVP SCH (07:40)
[2018-05-17] MEDS: Dorzolamide OPTH 10 ML BOTTLE RIGHT EYE SCH (07:48)
[2018-05-17] MEDS: Insulin LISPRO 300 UNITS/3 ML VIAL SQ SCH ×2 (07:48→12:52)
--- NOTE | 2018-05-17 08:06 | Discharge Summary ---
Date of Encounter: 05/17/18 Time of Encounter: 08:00 - Discharge Diagnosis (1) Acute on chronic combined systolic (congestive) and diastolic (congestive) heart failure Priority: Primary Status: Acute Assessment and Plan: 78 year old female presenting with respiratory failure secondary to CHF. She has a history signficant for of osteomyelitis with partial amputation of left foot, CHF with ejection fraction 2025 percent, metabolic encephalopathy on Haldol, right-sided pleural effusion. History was taken by and [id number] due to altered mental status of patient. Per family and patient patient's mental status and respiratory capacity has been decreasing since her left foot amputation in mid-April. She was admitted last week for altered mental status and was discharged on oxygen. Prior to that visit she has not required oxygen. Echo in January showed EF of 20-25%. She was started on diuresis with Iv lasix 80mg IV BID and showed good improvement. Pulmonary was consulted and for thoracentesis but determined she did not have enough fluid to be drained. She is being discharged on po lasix and 2L oxygen. She is in a chronic stable state for her chronic systolic CHF. she is also being discharged to complete a course of ceftriaxone for oher osteomyelitis to be completed on 06/10/18. She was discharged in a stable condition (2) Diabetes mellitus with hyperglycemia, with long-term current use of insulin Priority: Primary Status: Acute Assessment and Plan: Continue insulin and monitor fingersticks. 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 Kaplan is a 78 year old female - Time Spent with Patient Total time spent providing and/or coordinating discharge services: - Discharge Medications Prescriptions: Acetaminophen [Tylenol] 650 mg PO Q4H PRN 10 Days #30 tablet PRN Reason: Pain Aspirin 81 mg PO DAILY #30 tab.chew cefTRIAXone [Rocephin] 2,000 mg IVPB DAILY 42 Days vial Collagenase Oint [Santyl] 30 gm TP DAILY #30 tube Dorzolamide HCl/Pf [Dorzolamide 2% Eye Drop] 1 drop RIGHT EYE BID #10 drops Furosemide [Lasix] 40 mg PO BIDDIURETIC #60 tablet Haloperidol [Haldol] 2.5 mg PO TID 5 Days #15 tablet Insulin NPH/REG 70/30 (HUMAN) [Humulin 70/30 Vial] 10 unit SQ 0900,1700 #30 [id number] Lisinopril 2.5 mg PO DAILY 30 Days #30 tablet Melatonin [Melatin] 6 mg PO HS PRN #30 tablet PRN Reason: Sleep Metoprolol Succinate 50 mg PO DAILY 30 Days #30 tab.er.24h Nystatin Cream [Mycostatin Cream] 1 appl TP TID #1 tube Ondansetron HCl [Zofran] 4 mg PO Q4H PRN #30 tablet PRN Reason: Nausea OxyCODONE Immed Rel [Roxicodone 5 MG] 5 mg PO Q8H PRN 4 Days #10 tablet PRN Reason: Pain Pantoprazole Sodium [Protonix] 40 mg PO DAILY #30 tablet.dr Potassium Chloride 20 meq PO DAILY #10 tab.er.prt Simvastatin [Zocor] 40 mg PO HS 30 Days #30 tablet Sucralfate [Carafate] 1 gm PO BID #30 tablet Warfarin perPT [Coumadin perPT] 1 mg PO DAILY 30 Days #30 each Home Medications: Ergocalciferol (VITAMIN D2) [Vitamin D2] 50,000 unit PO QWEEK 03/25/18 [History] Methyl Salicylate/Menthol [Muscle Rub Cream] 1 applic TP TID 05/04/18 [History] Acetaminophen [Tylenol] 650 mg PO Q4H PRN 10 Days #30 tablet 05/17/18 [Rx] Aspirin 81 mg PO DAILY #30 tab.chew 05/17/18 [Rx] Collagenase Oint [Santyl] 30 gm TP DAILY #30 tube 05/17/18 [Rx] Dorzolamide HCl/Pf [Dorzolamide 2% Eye Drop] 1 drop RIGHT EYE BID #10 drops 05/17/18 [Rx] Furosemide [Lasix] 40 mg PO BIDDIURETIC #60 tablet 05/17/18 [Rx] Haloperidol [Haldol] 2.5 mg PO TID 5 Days #15 tablet 05/17/18 [Rx] Insulin NPH/REG 70/30 (HUMAN) [Humulin 70/30 Vial] 10 unit SQ 0900,1700 #30 [id number] 05/17/18 [Rx] Lisinopril 2.5 mg PO DAILY 30 Days #30 tablet 05/17/18 [Rx] Melatonin [Melatin] 6 mg PO HS PRN #30 tablet 05/17/18 [Rx] Metoprolol Succinate 50 mg PO DAILY 30 Days #30 tab.er.24h 05/17/18 [Rx] Nystatin Cream [Mycostatin Cream] 1 appl TP TID #1 tube 05/17/18 [Rx] Ondansetron HCl [Zofran] 4 mg PO Q4H PRN #30 tablet 05/17/18 [Rx] OxyCODONE Immed Rel [Roxicodone 5 MG] 5 mg PO Q8H PRN 4 Days #10 tablet 05/17/18 [Rx] Pantoprazole Sodium [Protonix] 40 mg PO DAILY #30 tablet.dr 05/17/18 [Rx] Potassium Chloride 20 meq PO DAILY #10 tab.er.prt 05/17/18 [Rx] Simvastatin [Zocor] 40 mg PO HS 30 Days #30 tablet 05/17/18 [Rx] Sucralfate [Carafate] 1 gm PO BID #30 tablet 05/17/18 [Rx] Warfarin perPT [Coumadin perPT] 1 mg PO DAILY 30 Days #30 each 05/17/18 [Rx] cefTRIAXone [Rocephin] 2,000 mg IVPB DAILY 42 Days vial 05/17/18 [Rx] Allergies/Adverse Reactions: Allergy/AdvReac Type Severity Reaction Status Date / Time lidocaine Allergy See Verified 04/17/18 09:26 Comments Date of admission: 05/14/18 05:18 Primary care physician: Martín Odonnell MD Consults: 05/14/18 06:05 Consult to Cardiology [CONS] Stat Comment: Consulting Provider: Cardiology [place] Reason for Consult: CHF management Time Notified: 06:06 Call Completed: No 05/14/18 06:10 Consult to Pulmonology [CONS] Stat Consulting Provider: [facility] [place] Reason for Consult: enlarging right pleural effusion Time Notified: 06:10 Call Completed: No - Constitutional Vitals: Temp Pulse Resp BP Pulse Ox 98.0 F 73 16 131/70 96 05/17/18 06:30 05/17/18 06:30 05/17/18 06:30 05/17/18 06:30 05/17/18 06:30 General appearance: Present: A&O X 0, mild distress. Absent: answers questions appropriately Exam: Constitutional: Vitals as noted. No Apparent Distress. obese ENT : Grossly normal hearing. Oropharyngeal exam unremarkable. Moist mucus membranes. mild JVD, no cervical lymphadenopathy. no thyromegaly or mass. Respiratory : Clear to auscultation bilaterally. No accessory muscle use, rhonchi or wheezes. Decreased entry at bases. Crackles at bases Cardiovascular : RRR, +S1, +S2. no murmur, gallop, rubs. No chest wall tenderness GI/Abdominal : Soft, Non-tender, Non-distended, normal bowel sounds, soft, no peritoneal signs. no orgenomegaly or mass appreciated. no hernia. Musculoskeletal: no deformity noted. 1+ edema. warm extremities, pulses palpable and symmetrical in UE/LE. no calf tenderness. Lt mid-foot amputation. Neurological: AO X2, CN II-XII grossly intact, grossly normal motor and sensory exam. - Patient Status Disposition: Home, Self-Care Condition: Good - Discharge Instructions Instructions: Ceftriaxone (Injection), Haloperidol (By mouth), Heart Failure (DC), Diabetes Mellitus Type 2 in Adults (DC), Diabetic Hyperglycemia (DC) Follow Up With: Martín Odonnell MD [Primary Care Provider] -
--- NOTE | 2018-05-17 14:06 | Physician Discharge Referral ---
Home Health/Hosp Referral Info Transfer to: Home Health - Diagnosis (1) Acute on chronic combined systolic (congestive) and diastolic (congestive) heart failure Priority: Primary Status: Acute (2) Diabetes mellitus with hyperglycemia, with long-term current use of insulin Priority: Primary Status: Acute (3) Foot osteomyelitis, left Priority: Primary Status: Acute (4) Hypokalemia Priority: Primary Status: Acute (5) Coronary artery disease Priority: Primary Status: Acute (6) A-fib Priority: Primary Status: Acute - Respiratory Orders Smoking Cessation: Smoking cessation has been advised. For more information, call the [place] Tobacco Quit Line at 3-263-TUKZ-NOW. - Diet/Nutrition Diet/Nutrition Orders: Cardiac - Activity Activity Orders: Ambulate - Services Needed Following services are medically necessary services: Nursing, Home Health Aide, Physical Therapy - Transfer Medications Prescriptions: Acetaminophen [Tylenol] 650 mg PO Q4H PRN 10 Days #30 tablet PRN Reason: Pain Aspirin 81 mg PO DAILY #30 tab.chew cefTRIAXone [Rocephin] 2,000 mg IVPB DAILY 42 Days vial Collagenase Oint [Santyl] 30 gm TP DAILY #30 tube Dorzolamide HCl/Pf [Dorzolamide 2% Eye Drop] 1 drop RIGHT EYE BID #10 drops Furosemide [Lasix] 40 mg PO BIDDIURETIC #60 tablet Haloperidol [Haldol] 2.5 mg PO TID 5 Days #15 tablet Insulin NPH/REG 70/30 (HUMAN) [Humulin 70/30 Vial] 10 unit SQ 0900,1700 #30 [id number] Lisinopril 2.5 mg PO DAILY 30 Days #30 tablet Melatonin [Melatin] 6 mg PO HS PRN #30 tablet PRN Reason: Sleep Metoprolol Succinate 50 mg PO DAILY 30 Days #30 tab.er.24h Nystatin Cream [Mycostatin Cream] 1 appl TP TID #1 tube Ondansetron HCl [Zofran] 4 mg PO Q4H PRN #30 tablet PRN Reason: Nausea OxyCODONE Immed Rel [Roxicodone 5 MG] 5 mg PO Q8H PRN 4 Days #10 tablet PRN Reason: Pain Pantoprazole Sodium [Protonix] 40 mg PO DAILY #30 tablet.dr Potassium Chloride 20 meq PO DAILY #10 tab.er.prt Simvastatin [Zocor] 40 mg PO HS 30 Days #30 tablet Sucralfate [Carafate] 1 gm PO BID #30 tablet Warfarin perPT [Coumadin perPT] 1 mg PO DAILY 30 Days #30 each Home Medications: Ergocalciferol (VITAMIN D2) [Vitamin D2] 50,000 unit PO QWEEK 03/25/18 [History] Methyl Salicylate/Menthol [Muscle Rub Cream] 1 applic TP TID 05/04/18 [History] Acetaminophen [Tylenol] 650 mg PO Q4H PRN 10 Days #30 tablet 05/17/18 [Rx] Aspirin 81 mg PO DAILY #30 tab.chew 05/17/18 [Rx] Collagenase Oint [Santyl] 30 gm TP DAILY #30 tube 05/17/18 [Rx] Dorzolamide HCl/Pf [Dorzolamide 2% Eye Drop] 1 drop RIGHT EYE BID #10 drops 05/17/18 [Rx] Furosemide [Lasix] 40 mg PO BIDDIURETIC #60 tablet 05/17/18 [Rx] Haloperidol [Haldol] 2.5 mg PO TID 5 Days #15 tablet 05/17/18 [Rx] Insulin NPH/REG 70/30 (HUMAN) [Humulin 70/30 Vial] 10 unit SQ 0900,1700 #30 [id number] 05/17/18 [Rx] Lisinopril 2.5 mg PO DAILY 30 Days #30 tablet 05/17/18 [Rx] Melatonin [Melatin] 6 mg PO HS PRN #30 tablet 05/17/18 [Rx] Metoprolol Succinate 50 mg PO DAILY 30 Days #30 tab.er.24h 05/17/18 [Rx] Nystatin Cream [Mycostatin Cream] 1 appl TP TID #1 tube 05/17/18 [Rx] Ondansetron HCl [Zofran] 4 mg PO Q4H PRN #30 tablet 05/17/18 [Rx] OxyCODONE Immed Rel [Roxicodone 5 MG] 5 mg PO Q8H PRN 4 Days #10 tablet 05/17/18 [Rx] Pantoprazole Sodium [Protonix] 40 mg PO DAILY #30 tablet.dr 05/17/18 [Rx] Potassium Chloride 20 meq PO DAILY #10 tab.er.prt 05/17/18 [Rx] Simvastatin [Zocor] 40 mg PO HS 30 Days #30 tablet 05/17/18 [Rx] Sucralfate [Carafate] 1 gm PO BID #30 tablet 05/17/18 [Rx] Warfarin perPT [Coumadin perPT] 1 mg PO DAILY 30 Days #30 each 05/17/18 [Rx] cefTRIAXone [Rocephin] 2,000 mg IVPB DAILY 42 Days vial 05/17/18 [Rx] Allergies/Adverse Reactions: Allergy/AdvReac Type Severity Reaction Status Date / Time lidocaine Allergy See Verified 04/17/18 09:26 Comments Certification: Further, I certify that my clinical findings support that this patient is homebound (i.e. absences from home require considerable and taxing effort and are for medical reasons or anabaptist services or infrequently or short duration when for other reasons) because: Homebound Reason: Patient requires assistance of a person or device to safely leave home Attestation: My signature below is to certify that this patient is under my care and that I, or nurse practitioner, or a physician's family readiness support assistant working with me, has a [id number] encounter with this patient.
== END 2018-05-17 15:00 | disposition home or self-care (01) | DRG 291 ==
LOC: EMEROOARM 00:27 → SUATTDRO 05:18 → 2NENU 05:18
PROVIDERS: ADMIT Internal Medicine; ATTEND Internal Medicine